=== PATIENT | female | born 1955 | race African-American/Black ===

== ENCOUNTER 2019-12-03 10:20 | Inpatient (IN) | payer OTHER ==
--- NOTE | 2019-12-03 10:31 | PDOC ---
History of Present Illness - General Chief Complaint: Altered Mental Status Stated Complaint: Altered Mental Status Time Seen by Provider: 12/03/19 10:31 History Source: Patient Exam Limitations: Clinical Condition - History of Present Illness Initial Comments: 12/03/19 10:55 64F w/PMH of DM, HTN, and living at undomicilied facility p/w AMS, brought in by EMS. Pt is a poor historian, does not know why she's here. She was admitted several days ago hypoglycemia. Denies cp, sob, n/v, abd pain. PMH: as in HPI SH: see below Meds: Allergies: NKDA Tob/Etoh/Rec drugs: PCP: Ayan Marrero GENERAL/CONSTITUTIONAL: No fever or chills. No weakness. HEENT: No change in vision. No ear pain or discharge. No sore throat. CARDIOVASCULAR: No chest pain or shortness of breath RESPIRATORY: No cough, wheezing, or hemoptysis. GASTROINTESTINAL: No nausea, vomiting, diarrhea or constipation. GENITOURINARY: No dysuria, frequency, or change in urination. MUSCULOSKELETAL: No joint or muscle swelling or pain. No neck or back pain. SKIN: No rash NEUROLOGIC: No headache, vertigo, loss of consciousness, or change in strength/sensation. ENDOCRINE: No increased thirst. No abnormal weight change HEMATOLOGIC/LYMPHATIC: No anemia, easy bleeding, or history of blood clots. ALLERGIC/IMMUNOLOGIC: No hives or skin allergy. PE GENERAL: Awake, alert, not fully oriented; fatigued, pt not cooperative with exam, disheveled, poor hygiene HEAD: No signs of trauma, normocephalic, atraumatic EYES: PERRLA, EOMI, sclera anicteric, conjunctiva clear ENT: Auricles normal inspection, hearing grossly normal, nares patent, moist mucosa, oropharynx clear without exudates. NECK: Normal ROM, supple, no LAD, JVD, or masses HEART: Regular rate and rhythm, normal S1/S2, no murmurs, rubs or gallops, peripheral pulses normal and equal bilaterally. LUNGS: mild diffuse wheezes bilaterally, no rales, rhonchi ABDOMEN: Soft, non-tender. No guarding, no rebound. No masses EXTREMITIES: Normal inspection, Normal range of motion, no edema. No clubbing or cyanosis. NEUROLOGICAL: SKIN: Warm, Dry, normal turgor, no rashes or lesions noted Assessment and Plan 1. AMS 2. r/o intracranial pathology 3. metabolic derangement 4. electrolyte abnormality Boubacar Tobias, PGY1 Emergency Medicine Past History - Medical History Allergies/Adverse Reactions: Allergies Allergy/AdvReac Type Severity Reaction Status Date / Time No Known Allergies Allergy Verified 12/03/19 10:39 Home Medications: Ambulatory Orders Acetaminophen [Pain Reliever] 500 mg PO BID 11/24/19 Amlodipine Besylate 5 mg PO DAILY 11/24/19 Atorvastatin Ca [Lipitor] 40 mg PO HS 11/24/19 Cyanocobalamin (Vitamin B-12) [Vitamin B-12] 100 mcg PO DAILY 11/24/19 Ferrous Sulfate 325 mg PO DAILY 11/24/19 Insulin Lispro [Admelog Solostar] 100 unit SQ ASDIR 11/24/19 Lisinopril 20 mg PO DAILY 11/25/19 Prednisolone 1% Ophthalmic [Pred Forte 1% -] 1 drop OU QID 11/25/19 Aspirin [ASA -] 81 mg PO DAILY #30 tab.chew 11/26/19 Aspirin 81 mg PO DAILY 12/03/19 Glipizide 10 mg PO BID 12/03/19 Insulin Glargine,Hum.rec.anlog [Basaglar Kwikpen U-100] 20 unit SQ DAILY 12/03/19 Lisinopril 20 mg PO DAILY 12/03/19 Tiotropium [place] [Spiriva] 2 puff IH DAILY 12/03/19 Umeclidinium [place] [Incruse Ellipta] 62.5 mcg IH DAILY 12/03/19 Anemia: Yes (iron deficiency) Asthma: Yes 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 Patient not cooperative with exam. Fingerstick BG 251, AMS not 2/2 hypoglycemia. Will do full workup: CBC, CMP, TSH, lactate, UA+Clx, CXR, head CT 12/03/19 12:08 Spoke with NAHUM Gaffney at [facility] Reported that EMS was called bc pt was minimally responsive, w/ slurred speech. Baseline AOx3. Yesterday was last known normal. 12/03/19 12:[address]: no acute intracranial pathology, w/ chronic infarcts and ischemic changes. Reassessed mental status, shes AOx1. Pt still too fatigued to cooperate with neuro exam. 12/03/19 13:07 Labs notable for creatinine 2.1 (increased from 1.3 on 11/23) and BUN 28.7 (increased from 15.1 on 11/23), suggesting HAM. Mild hyperkalemia @ 5.6, w/o EKG changes. -> Pt given 1L NS for hydration. Unable to provide urine for UA and refused straight cath. 12/03/19 14:21 Pt admitted to m/s for HAM and hyperkalemia. Discharge - Discharge Information Problems reviewed: Yes Clinical Impression/Diagnosis: Transient alteration of awareness, HAM (acute kidney injury), Hyperkalemia Condition: Fair - Admission Yes - Follow up/Referral - Patient Discharge Instructions - Post Discharge Activity
[2019-12-03 12:25] LABS: BASO % 0.5 % (0-2.0); HEMOGLOBIN 9.1 GM/dL (10.7-15.3); LYMPH % 7.5 % (8-40); MCH 29.4 pg (25.7-33.7); MCHC 32.7 g/dl (32.0-36.0); MEAN PLT VOLUME 8.1 fl (7.5-11.1); MONO % 4.7 % (3.8-10.2); NEUT % 87.3 % (42.8-82.8); PLATELET COUNT 521 K/MM3 (134-434); RBC 3.11 M/mm3 (3.60-5.2); RDW 14.7 % (11.6-15.6); WHITE BLOOD COUNT 12.2 K/mm3 (4.0-10.0)
--- NOTE | 2019-12-03 12:26 | PDOC ---
Attending Attestation - Resident Resident Name: Boubacar Tobias - ED Attending Attestation I have performed the following: I have examined & evaluated the patient, The case was reviewed & discussed with the resident, I agree w/resident's findings & plan - HPI HPI: 12/03/19 12:22 64y/o F HTN, DM, HepC, asthma sent from [facility] for AMS, normally A+Ox3 but today had aggressive behavior and perceived confusion so she was sent to ED. pt has no complaints, does not recall events prompting referral, denies any headache/sore throat/cp/sob/abd pain/f/c/dysuria. - Physicial Exam PE: 12/03/19 12:23 afebrile, vss alert, nad conversant perrl, eomi s1s2 rrr, ctab, abd benign no edema, neuro nonfocal angry but cooperative with exam and following commands - Medical Decision Making 12/03/19 12:24 64[facility], no complaints and no specific findings on exam. ddx broad including infectious/metabolic. has had similar presentations in the past in setting of hypoglycemia, but normoglycemic here. labs, ua ekg, cxr, ct head reassess 12/03/19 13:37 Compared to prior labs, baseline anemia and elevated alk phos, new HAM with hyperkalemia but without EKG changes. Hyperkalemia treated, chest x-ray and CT head without acute pathology UA pending IV fluids, admission Heart Score/ECG Review #1 ECG reviewed & interpreted by me at: 10:52 General ECG Interpretation: Sinus Rhythm, Normal Rate (79), Normal Intervals (qtc [id number]), No acute ischemic changes Discharge - Discharge Information Problems reviewed: Yes Clinical Impression/Diagnosis: Transient alteration of awareness, HAM (acute kidney injury), Hyperkalemia Condition: Fair - Follow up/Referral Referrals: Ayan Marrero [Primary Care Provider] - - Patient Discharge Instructions - Post Discharge Activity
[2019-12-03] MEDS ORDERED: SODIUM CHLORIDE 0.9% 500 ML INFUS.BAG IV ONE (12:32)
[2019-12-03 12:54] LABS: ALBUMIN 2.7 g/dl (3.4-5.0); BILIRUBIN,TOTAL 0.2 mg/dL (0.2-1); BLOOD UREA NITROGEN 28.7 mg/dL (7-18); CALCIUM 7.9 mg/dL (8.5-10.1); CREATININE 2.1 mg/dL (0.55-1.3); POTASSIUM 5.6 mmol/L (3.5-5.1); TOT PROT 8.9 g/dl (6.4-8.2)
[2019-12-03] MEDS ORDERED: SODIUM CHLORIDE 1,000 ML IV SCH (15:30)
--- NOTE | 2019-12-03 15:38 | HP ---
CHIEF COMPLAINT: Altered mental status PCP: Dr. Marrero HISTORY OF PRESENT ILLNESS: Pt is a 64 year old F with PMHx of HTN, DM, HepC, asthma presenting to the ED from [facility] with altered mental status. Pt is A&O x 3 at baseline, and was recently discharged from [facility] for hypoglycemia resolved for taking insulin meds without eating, regimen was changed to metformin 750mg BID daily. Pt has improved mentation on interviewing compared to ED resident note earlier, but is still unable to state the year, is A&Ox2. Pt states she does not recall her events from this morning and having altered mentation. ER course was notable for: (1) K+ 5.6; no EKG changes (2) WBC 12.2 (3) Cr 2.1, baseline 1.3 on last admission - 1L NS Recent Travel: Denies PAST MEDICAL HISTORY: As stated above PAST SURGICAL HISTORY: Denies Social History: Smoking: denies Alcohol: denies Drugs: denies Allergies No Known Allergies Allergy (Verified 12/03/19 10:39) HOME MEDICATIONS: Home Medications Medication Instructions Recorded Acetaminophen [Pain Reliever] 500 mg PO BID 11/24/19 Amlodipine Besylate 5 mg PO DAILY 11/24/19 Atorvastatin Ca [Lipitor] 40 mg PO HS 11/24/19 Cyanocobalamin (Vitamin B-12) 100 mcg PO DAILY 11/24/19 [Vitamin B-12] Ferrous Sulfate 325 mg PO DAILY 11/24/19 Insulin Lispro [Admelog Solostar] 100 unit SQ ASDIR 11/24/19 Lisinopril 20 mg PO DAILY 11/25/19 Prednisolone 1% Ophthalmic [Pred 1 drop OU QID 11/25/19 Forte 1% -] Aspirin [ASA -] 81 mg PO DAILY #30 tab.chew 11/26/19 Aspirin 81 mg PO DAILY 12/03/19 Glipizide 10 mg PO BID 12/03/19 Insulin Glargine,Hum.rec.anlog 20 unit SQ DAILY 12/03/19 [Basaglar Kwikpen U-100] Lisinopril 20 mg PO DAILY 12/03/19 Tiotropium [place] [Spiriva] 2 puff IH DAILY 12/03/19 Umeclidinium [place] [Incruse 62.5 mcg IH DAILY 12/03/19 Ellipta] REVIEW OF SYSTEMS CONSTITUTIONAL: Absent: fever, chills, diaphoresis, generalized weakness, malaise, loss of appetite, weight change HEENT: Absent: rhinorrhea, nasal congestion, throat pain, throat swelling, difficulty swallowing, mouth swelling, ear pain, eye pain, visual changes CARDIOVASCULAR: Absent: chest pain, syncope, palpitations, irregular heart rate, lightheadedness, peripheral edema RESPIRATORY: Absent: cough, shortness of breath, dyspnea with exertion, orthopnea, wheezing, stridor, hemoptysis GASTROINTESTINAL: Absent: abdominal pain, abdominal distension, nausea, vomiting, diarrhea, constipation, melena, hematochezia GENITOURINARY: Absent: dysuria, frequency, urgency, hesitancy, hematuria, flank pain, genital pain MUSCULOSKELETAL: Absent: myalgia, arthralgia, joint swelling, back pain, neck pain SKIN: Absent: rash, itching, pallor HEMATOLOGIC/IMMUNOLOGIC: Absent: easy bleeding, easy bruising, lymphadenopathy, frequent infections ENDOCRINE: Absent: unexplained weight gain, unexplained weight loss, heat intolerance, cold intolerance NEUROLOGIC: mental status changes on admission, improved Absent: headache, focal weakness or paresthesias, dizziness, unsteady gait, seizure, bladder or bowel incontinence PSYCHIATRIC: Absent: anxiety, depression, suicidal or homicidal ideation, hallucinations. PHYSICAL EXAMINATION Vital Signs - 24 hr 12/03/19 10:20 Temperature 97.8 F Pulse Rate 83 Respiratory 18 Rate Blood Pressure 100/58 L O2 Sat by Pulse 99 Oximetry (%) GENERAL: A&O x 2, in no acute distress. HEAD: Normal with no signs of trauma. EYES: Pupils equal, round and reactive to light, extraocular movements intact, sclera anicteric, conjunctiva clear. No lid lag. EARS, NOSE, THROAT: Ears normal, nares patent, oropharynx clear without exudates. Moist mucous membranes. NECK: Normal range of motion, supple without lymphadenopathy, JVD, or masses. LUNGS: Breath sounds equal, clear to auscultation bilaterally. No wheezes, and no crackles. No accessory muscle use. HEART: Regular rate and rhythm, normal S1 and S2 without murmur, rub or gallop. ABDOMEN: Soft, nontender, not distended, normoactive bowel sounds, no guarding, no rebound, no masses. No hepatomegaly or splenomegaly. MUSCULOSKELETAL: Normal range of motion at all joints. No bony deformities or tenderness. No CVA tenderness. UPPER EXTREMITIES: 2+ pulses, warm, well-perfused. No cyanosis. No clubbing. No peripheral edema. LOWER EXTREMITIES: 2+ pulses, warm, well-perfused. No calf tenderness. No peripheral edema. NEUROLOGICAL: Cranial nerves II-XII intact. Normal speech. Normal gait. PSYCHIATRIC: Cooperative. Good eye contact. Appropriate mood and affect. SKIN: Warm, dry, normal turgor, no rashes or lesions noted, normal capillary refill. Laboratory Results - last 24 hr 12/03/19 12/03/19 12/03/19 12:04 12:04 12:04 WBC 12.2 H RBC 3.11 L Hgb 9.1 L Hct 28.0 L MCV 90.0 MCH 29.4 MCHC 32.7 RDW 14.7 Plt Count 521 H MPV 8.1 Absolute Neuts (auto) 10.6 H Neutrophils % 87.3 H Lymphocytes % 7.5 L Monocytes % 4.7 Eosinophils % 0.0 Basophils % 0.5 Nucleated RBC % 0 Sodium 133 L Potassium 5.6 H Chloride 105 Carbon Dioxide 21 Anion Gap 8 BUN 28.7 H Creatinine 2.1 H Est GFR (CKD-EPI)AfAm 27.92 Est GFR (CKD-EPI)NonAf 24.09 Random Glucose 223 H Lactic Acid Calcium 7.9 L Total Bilirubin 0.2 AST 27 ALT 11 L Alkaline Phosphatase 290 H Total Protein 8.9 H Albumin 2.7 L TSH 8.01 H 12/03/19 12:04 WBC RBC Hgb Hct MCV MCH MCHC RDW Plt Count MPV Absolute Neuts (auto) Neutrophils % Lymphocytes % Monocytes % Eosinophils % Basophils % Nucleated RBC % Sodium Potassium Chloride Carbon Dioxide Anion Gap BUN Creatinine Est GFR (CKD-EPI)AfAm Est GFR (CKD-EPI)NonAf Random Glucose Lactic Acid 2.0 Calcium Total Bilirubin AST ALT Alkaline Phosphatase Total Protein Albumin TSH ASSESSMENT/PLAN: Pt is a 64 year old female with a PMHx of DM, HTN, Hep C and asthma presenting with AMS admitted for hyperkalemia 5.7. #Acute mental status -AOx3 at baseline; presented with -Ordered UA, UCx for possible UTI; denies suprapubic/flank pain but being ruled out -TSH 8.01; ordered FT3/4 #HAM -Cr 2.1; baseline last admission 1.3 -held lasix -NS 75cc/hr; given NS 1L in ED -consulted renal #Hyperkalemia -5.7; repeat at 6pm; if >6 insulin D50/calcium gluc/albuterol -no EKG changes/no T wave elevation #Increased TSH -TSH 8.01 -ordered FT4/FT3 -no cold intolerance, constipation -ordered AM cortisol, renin, aldosterone #Hx anemia -Hgb 9.1, present last admission too; normocytic -Ordered iron panel, B12, folate #Hx HTN -continue home norvasc 5mg daily -held home Lisinopril due to HAM #Hx DM -held home meds -SSI and BGM -On last admission was hypoglycemic, d/c'd all insulins and started on only metformin 750 BID #Hx asthma -home Ellipta resumed PPx: Heparin 5000u TID FEN NS 75cc/hr Repeat BMP at 6pm Diabetic/sodium diet Dispo: Admitted to med surg. Monitor electrolytes, K+. Repeat BMP. ATTENDING PHYSICIAN STATEMENT I saw and evaluated the patient. I reviewed the resident's note and discussed the case with the resident. I agree with the resident's findings and plan as documented. SUBJECTIVE: OBJECTIVE: ASSESSMENT AND PLAN:
--- NOTE | 2019-12-03 16:20 | PN ---
Teaching Attending Note Name of Resident: Ellen Castelan ATTENDING PHYSICIAN STATEMENT I saw and evaluated the patient. I reviewed the resident's note and discussed the case with the resident. I agree with the resident's findings and plan as documented. SUBJECTIVE: Patient seen and examined at bedside, admitted for UTI/HAM, looks dishveled, unkempt, patient in her own feces, will need SNF. VSS. OBJECTIVE: GA mild distress, tired appearing, malnourished, feces on clothes HEENT nC/AT, cachectic, dry MM Chest CTAB CVS s1, S2+, RRR Abd thin, Soft, NT< ND, BS+ Ext no LE edema no CVA tenderness Vital Signs (72 hours) 12/03/19 12/03/19 12/03/19 10:20 14:30 18:00 Temperature 97.8 F 98.3 F Pulse Rate 83 Pulse Rate [ 74 78 Apical] Respiratory 18 16 18 Rate Blood Pressure 100/58 L Blood Pressure 114/75 104/68 [Left Arm] O2 Sat by Pulse 99 99 99 Oximetry (%) Laboratory Results - last 24 hr 12/03/19 12/03/19 12/03/19 12:04 12:04 12:04 WBC 12.2 H RBC 3.11 L Hgb 9.1 L Hct 28.0 L MCV 90.0 MCH 29.4 MCHC 32.7 RDW 14.7 Plt Count 521 H MPV 8.1 Absolute Neuts (auto) 10.6 H Neutrophils % 87.3 H Lymphocytes % 7.5 L Monocytes % 4.7 Eosinophils % 0.0 Basophils % 0.5 Nucleated RBC % 0 Sodium 133 L Potassium 5.6 H Chloride 105 Carbon Dioxide 21 Anion Gap 8 BUN 28.7 H Creatinine 2.1 H Est GFR (CKD-EPI)AfAm 27.92 Est GFR (CKD-EPI)NonAf 24.09 POC Glucometer Random Glucose 223 H Lactic Acid Calcium 7.9 L Total Bilirubin 0.2 AST 27 ALT 11 L Alkaline Phosphatase 290 H Total Protein 8.9 H Albumin 2.7 L TSH 8.01 H 12/03/19 12/03/19 12:04 18:24 WBC RBC Hgb Hct MCV MCH MCHC RDW Plt Count MPV Absolute Neuts (auto) Neutrophils % Lymphocytes % Monocytes % Eosinophils % Basophils % Nucleated RBC % Sodium Potassium Chloride Carbon Dioxide Anion Gap BUN Creatinine Est GFR (CKD-EPI)AfAm Est GFR (CKD-EPI)NonAf POC Glucometer 93 Random Glucose Lactic Acid 2.0 Calcium Total Bilirubin AST ALT Alkaline Phosphatase Total Protein Albumin TSH Home Medications Medication Instructions Recorded Acetaminophen [Pain Reliever] 500 mg PO BID 11/24/19 Amlodipine Besylate 5 mg PO DAILY 11/24/19 Atorvastatin Ca [Lipitor] 40 mg PO HS 11/24/19 Cyanocobalamin (Vitamin B-12) 100 mcg PO DAILY 11/24/19 [Vitamin B-12] Ferrous Sulfate 325 mg PO DAILY 11/24/19 Insulin Lispro [Admelog Solostar] 100 unit SQ ASDIR 11/24/19 Lisinopril 20 mg PO DAILY 11/25/19 Prednisolone 1% Ophthalmic [Pred 1 drop OU QID 11/25/19 Forte 1% -] Aspirin [ASA -] 81 mg PO DAILY #30 tab.chew 11/26/19 Aspirin 81 mg PO DAILY 12/03/19 Glipizide 10 mg PO BID 12/03/19 Insulin Glargine,Hum.rec.anlog 20 unit SQ DAILY 12/03/19 [Basaglar Kwikpen U-100] Lisinopril 20 mg PO DAILY 12/03/19 Tiotropium [place] [Spiriva] 2 puff IH DAILY 12/03/19 Umeclidinium [place] [Incruse 62.5 mcg IH DAILY 12/03/19 Ellipta] Current Medications Generic Name Dose Route Start Last Admin Trade Name Freq PRN Reason Stop Dose Admin Amlodipine Besylate 5 mg 12/03/19 17:00 12/03/19 18:51 Norvasc - PO Not Given DAILY [facility] Aspirin 81 mg 12/04/19 10:00 Asa - PO DAILY [facility] Atorvastatin Calcium 40 mg 12/03/19 22:00 Lipitor - PO HS [facility] Cyanocobalamin 100 mcg 12/04/19 10:00 Vitamin B12 - PO DAILY [facility] Ferrous Sulfate 325 mg 12/04/19 10:00 Feosol - PO DAILY [facility] Heparin Sodium (Porcine) 5,000 unit 12/03/19 22:00 Heparin - SQ TID [facility] Sodium Chloride 1,000 mls @ 100 mls/hr 12/03/19 18:29 12/03/19 18:51 Normal Saline - IV 100 mls/hr ASDIR [facility] Administration Insulin Aspart 1 vial 12/03/19 16:30 12/03/19 18:49 Novolog Vial Sliding Scale - SQ Not Given TIDAC [facility] Protocol Prednisolone Acetate 1 drop 12/03/19 18:00 12/03/19 18:49 Pred Forte 1% - OU Not Given QID [facility] Tiotropium [place] 2 puff 12/04/19 10:00 Spiriva Respimat IH DAILY [facility] ASSESSMENT AND PLAN: 64 F HAM HTN HLD Hep C Prior PSA T2DM Borderline lactic acid ?Metformin use Plan: Aggressive IV hydration DC Metformin trend chem Obtain UA straight cath as needed will need SW evaluation needs SNF placement DVT ppx: Heparin SC
--- OUTSIDE RECORDS SUMMARY | 2019-12-03 17:43 | XMS ---
:1955 [facility] Providers Name Role Phone [facility] Unavailable Unavailable Arsenio Rangel Unavailable Unavailable ED STAFF LAURO AGUILAR Unavailable Unavailable MYA THACKER Unavailable Unavailable Manolo Khander Unavailable Josue Khanpinder Unavailable Bill Pushpinder Unavailable Khan Pushpinder Unavailable Khan Pushpinder Unavailable Bill Pushpinder Unavailable Bill Pushpinder Unavailable Bill Pushpinder Unavailable ED STAFF PHYSICIAN, STAFF Unavailable Unavailable ED STAFF EMEKA AGUILAR Unavailable Unavailable Kar Pa MD Unavailable Unavailable Tete Pa MD Unavailable Unavailable Tete Pa MD Unavailable Unavailable Tete Pa MD Unavailable Unavailable Tete Pa MD Unavailable Unavailable Tete Pa MD Unavailable Unavailable Tete Pa MD Unavailable Unavailable Tushar Unavailable Unavailable MD Laron Unavailable Unavailable MD Laron Unavailable Unavailable MD Laron Unavailable Unavailable MD Laron Unavailable Unavailable MD Laron Unavailable Unavailable MD Laron Unavailable Unavailable MD Laron Unavailable Unavailable MD Bill Unavailable Unavailable Nicola Unavailable Unavailable Donnell Unavailable Unavailable ED STAFF PHYSICIAN Unavailable Unavailable Iamele Unavailable Unavailable Iamele Unavailable Unavailable Iamele Unavailable Unavailable ED STAFF PHYSICIAN Unavailable Unavailable Re-disclosure Warning The records that you are about to access may contain information from federally- assisted alcohol or drug abuse programs. If such information is present, then the following federally mandated warning applies: This information has been disclosed to you from records protected by federal confidentiality rules (42 CFR part 2). The federal rules prohibit you from making any further disclosure of this information unless further disclosure is expressly permitted by the written consent of the person to whom it pertains or as otherwise permitted by 42 CFR part 2. A general authorization for the release of medical or other information is NOT sufficient for this purpose. The Federal rules restrict any use of the information to criminally investigate or prosecute any alcohol or drug abuse patient.The records that you are about to access may contain highly sensitive health information, the redisclosure of which is protected by Article 27-F of the [facility] Public Health law. If you continue you may haveaccess to information: Regarding HIV / AIDS; Provided by facilities licensed or operated by the [facility] Office of Mental Health; or Provided by the [facility] Office for People With Developmental Disabilities. If such information is present, then the following [facility] mandated warning applies: This information has been disclosed to you from confidential records which are protected by state law. State law prohibits you from making any further disclosure of this information without the specific written consent of the person to whom it pertains, or as otherwise permitted by law. Any unauthorized further disclosure in violation of state law may result in a fine or nursing home sentence or both. A general authorization for the release of medical or other information is NOT sufficient authorization for further disclosure. Allergies and Adverse Reactions Type Description Substance Reaction Status Data Source(s ) 9 N/A N/A [facility]) Encounters Encounter Providers Location Date Indications Data Source(s ) Emergency Attender: Kar Bustos 11/18/2019 [facility] Shemar Swift 05:24:00 AM EDT Medical C enter MDAttender: STAFF ED - 11/18/2019 STAFF 11:25:00 AM EDT PHYSICIANAdmitter: Kar Swift MD Patient discharged. Emergency Attender: LAURO ED STAFF H 10/03/2019 09:15:00 AM [facility] PHYSICIANAttender: EMEKA ED EDT - 10/03/2019 [facility] STAFF PHYSICIANAttender: STAFF 07:16:00 PM EDT ED STAFF PHYSICIANAdmitter: LAURO ED STAFF PHYSICIAN Patient discharged. Emergency Attender: ED STAFF H 09/18/2019 12:21:00 PM [facility] PHYSICIANAttender: STAFF ED EDT - 09/18/2019 [facility] STAFF PHYSICIANAdmitter: ED 06:21:00 PM EDT STAFF PHYSICIAN Patient discharged. Outpatient Attender: HVC9 HHHVCC 04/30/2019 01:36:07 PM [facility] Patient admitted. Emergency Attender: EMEKA ED STAFF H 03/28/2019 04:50:00 PM [facility] PHYSICIANAttender: STAFF ED EST - 03/28/2019 [facility] STAFF PHYSICIANAdmitter: EMEKA 08:39:00 PM EST ED STAFF PHYSICIAN Patient discharged. Emergency Attender: ED STAFF H 03/02/2019 06:09:00 PM [facility] PHYSICIANAttender: STAFF ED EST - 03/02/2019 [facility] STAFF PHYSICIANAdmitter: ED 11:44:00 PM EST STAFF PHYSICIANReferrer: STAFF ED STAFF PHYSICIAN Patient discharged. Emergency Attender: EMEKA ED STAFF H 10/11/2018 [facility] PHYSICIANAdmitter: EMEKA 04:11:00 PM EDT [facility] ED STAFF PHYSICIAN Inpatient Attender: Gregorio Khan 6 WEST-3 08/24/2018 [facility] 11:30:00 AM EDT - ([facility] y Extended 10/11/2018 [facility]) 11:22:00 AM EDT Patient discharged. Inpatient Attender: 5T-5T 08/20/2018 UNCONTROLLED [facility] - M daryn Larry MDAttender: 10:16:00 AM EDT DIABETES M ILLITUS [place] - 08/24/2018 WITH HYPERGLYCEMIA Hosp ital LathanAdmitter: 12:02:00 PM EDT Laron MDConsultant: Cheyenne Gardner UNCONTROLLED DIABETES MILLITUS WITH HYPE RGLYCEMIA Patient discharged. Outpatient 05/31/2018 [facility] 11:28:00 AM EDT [facility]) Inpatient Attender: Arsenio 5T-5T 04/28/2018 Episode of [facility] - Nica nt Ki DesireelucianoamsAttender: 10:26:00 PM EST - syncope [facility] 05/09/2018 SinghAttender: 07:12:00 PM EST [place] DysonAttender: Mike Finley Episode of syncope Inpatient Attender: ROQUE FER H-HAL6 04/05/2017 06:37:00 [facility] [place] NUSRATERAdmitter: MYA EST - [facility] 11:20[facility]00 AM EST MYA ROQUE Immunizations Vaccine Date Status Description Data Source(s) Tdap 09/18/2016 completed Tdap on: 18-Sep-2016 [facility] 12:00:00 AM Lot #: [id number] [facility] EDT This CVX 07/04/2012 completed unknown [inactive] on: Site: Entire right upper arm (body structure) [facility] code has 12:00:00 AM Lot #: [id number] 04-Jul-2012 Comme nts: Comments: Unknown CVX vaccine name: [facility] little EDT utility and should rarely be used. Comments: Unknown CVX vaccine name: Twin stephanie This CVX code 12/20/2011 completed influenza, unspe cified formulation [inactive] on: Site: Entire left upper arm (body struc ture) [facility] allows 12:00:00 AM Lot #: [id number] 20-Dec-2011 Health reporting of a EDT Syste m vaccination when formulation is unknown (for example, when recording a Influenza vaccination when noted on a vaccination card) Medications Medication Brand Start Product Dose Route Administrative Pharmacy at Indications Reaction Description Data Name Date Form Instructions Instructions Source(s) Admelog 3 ML Admelog SIGM [facility] SoloStar Insuli 2019 ed SoloStar (Rege ncy U-100 n 01:18: U-100 Extended Insulin Lispro 28 AM Insulin Care (insulin 100 EDT lispro 100 Cente r) lispro) UNT/ML unit/mL lispro 100 Pen subcutaneous unit/mL Inject pen subcutaneou or s pen [Admel og] Basaglar 3 ML 09/19/ complet Basaglar SI [facility] KwikPen Insuli 2018 ed KwikPen (Regenc y U-100 n 08:30: U-100 Extended Insulin Glargi 55 AM Insulin 100 Ca re (insulin ne 100 EDT unit/mL ([address]) glargine) UNT/ML mL) 100 unit/mL Pen subcutaneous (3 mL) Inject subcutaneou or s [Basag lar] glipizide Glipiz 09/06/ complet glipizid e 10 [facility] 10 mg bernice 2018 ed mg tablet (Regen y tablet MG 06:47: Extended Oral 35 AM Care Tablet EDT Center) glipizide Glipiz 09/06/ complet glipizid e 10 [facility] 10 mg bernice 2018 ed mg tablet (Regen y tablet MG 06:47: Extended Oral 35 AM Care Tablet EDT Center) Januvia sitagl 09/05/ complet Januvia 10 0 [facility] (sitaglipti iptin 2018 ed mg tablet (R egency n) 100 mg 100 MG 10:00: Extend ed tablet Oral 00 PM Care Tablet EDT Center) [Januv ia] metformin Metfor 09/05/ complet metformi n [facility] 500 mg min 2019 ed 500 mg ([facility] tablet hydroc 07:28: tablet Extende d hlorid 23 AM Care e 500 EDT Center) MG Oral Tablet Basaglar 3 ML 09/04/ complet Basaglar SI [facility] KwikPen Insuli 2018 ed KwikPen ([facility] y U-100 n 01:26: U-100 Extended Insulin Glargi 04 PM Insulin 100 Ca re (insulin ne 100 EDT unit/mL ([address] glargine) UNT/ML mL) 100 unit/mL Pen subcutaneous (3 mL) Inject subcutaneou or s [Basag lar] Levemir insuli 09/04/ complet Levemir SI [facility] U-100 n 2018 ed U-100 ([facility] Insulin detemi 09:30: Insulin 100 E xtended (insulin r 100 18 AM unit/mL Care detemir UNT/ML EDT subcutaneous Ce nter) u-100) 100 Inject solution unit/mL able subcutaneou Soluti s solution on [Levem ir] Vitamin Vitami 08/24/ complet Vitamin B- 12 [facility] B-12 n B 12 2018 ed 100 mcg ([facility] (cyanocobal 0.1 MG 06:48: tablet Ex tended hoang Oral 02 AM Care (vitamin Tablet EDT Center) b-12)) 100 mcg tablet Vitamin Vitami 08/24/ complet Vitamin B- 12 [facility] B-12 n B 12 2018 ed 100 mcg ([facility] (cyanocobal 0.1 MG 06:48: tablet Ex tended hoang Oral 02 AM Care (vitamin Tablet EDT Center) b-12)) 100 mcg tablet Tubersol Purifi 08/24/ complet Tubersol 5 [facility] (tuberculin ed 2019 ed tub. ([facility] ppd) 5 tub. Protei 05:06: unit/0.1 mL Extended unit/0.1 mL n 43 AM intradermal Care intradermal Deriva EDT injection C enter) injection tive solution solution of Tuberc ulin 50 UNT/ML Inject able Soluti on [Tuber thanh] Pneumovax PNEUMO 08/24/ complet Pneumova x 23 [facility] 23 VAX 23 2018 ed 25 mcg/0.5 (Regenc y (pneumococc 0.5 ML 05:06: mL inject ion Extended al 23-maia Inject 43 AM solution Car e ps vaccine) ion EDT Center) 25 mcg/0.5 mL injection solution pantoprazol pantop 08/24/ complet pantop razole [facility] e 40 mg razole 2018 ed 40 mg ([facility] tablet,rocío 40 MG 04:55: tablet,del ay Extended yed release Delaye 11 AM ed release Care d EDT Center) Releas e Oral Tablet amlodipine Amlodi 08/24/ complet amlodip ine 5 [facility] 5 mg tablet pine 5 2018 ed mg tablet ( [facility] MG 04:55: Extended Oral 11 AM Care Tablet EDT Center) pantoprazol pantop 08/24/ complet pantop razole [facility] e 40 mg razole 2018 ed 40 mg ([facility] tablet,orcío 40 MG 04:55: tablet,del ay Extended yed release Delaye 11 AM ed release Care d EDT Center) Releas e Oral Tablet amlodipine Amlodi 08/24/ complet amlodip ine 5 [facility] 5 mg tablet pine 5 2019 ed mg tablet ( [facility] MG 04:55: Extended Oral 11 AM Care Tablet EDT Center) Humalog 3 ML 08/24/ complet Humalog [facility] KwikPen Insuli 2019 ed KwikPen (Regenc y (U-100) n 04:50: (U-100) Extende d (insulin Lispro 28 AM Insulin 100 C are lispro) 100 EDT unit/mL Center) Insulin 100 UNT/ML subcutaneou s unit/mL Pen subcutaneou Inject s or [Humal og] acetaminoph Acetam 08/24/ complet acetam inophe [facility] en 325 mg inophe 2019 ed n 325 mg (Reg ency tablet n 325 04:37: tablet Extended MG 23 AM Care Oral EDT Center) Tablet acetaminoph Acetam 08/24/ complet acetam inophe [facility] en 325 mg inophe 2019 ed n 325 mg (Reg ency tablet n 325 04:37: tablet Extended MG 23 AM Care Oral EDT Center) Tablet ferrous ferrou 08/24/ complet ferrous SI [facility] sulfate 325 s 2019 ed sulfate 325 ( [facility] mg (65 mg sulfat 04:32: mg (65 mg E xtended iron) e 325 58 AM iron) tablet Care tablet MG EDT Center) Oral Tablet ferrous ferrou 08/24/ complet ferrous SI [facility] sulfate 325 s 2019 ed sulfate 325 ( [facility] mg (65 mg sulfat 04:32: mg (65 mg E xtended iron) e 325 58 AM iron) tablet Care tablet MG EDT Center) Oral Tablet atorvastati atorva 08/24/ complet atorva statin [facility] n 40 mg statin 2019 ed 40 mg tablet (R egency tablet 40 MG 04:27: Extended Oral 43 AM Care Tablet EDT Center) atorvastati atorva 08/24/ complet atorva statin [facility] n 40 mg statin 2019 ed 40 mg tablet (R egency tablet 40 MG 04:27: Extended Oral 43 AM Care Tablet EDT Center) lisinopril Lisino 08/24/ complet lisinop ril [facility] 20 mg pril 2019 ed 20 mg tablet (Regen cy tablet 20 MG 04:19: Extended Oral 31 AM Care Tablet EDT Center) lisinopril Lisino 08/24/ complet lisinop ril [facility] 20 mg pril 2019 ed 20 mg tablet (Regen cy tablet 20 MG 04:19: Extended Oral 31 AM Care Tablet EDT Center) Amlodipine amLODI ORAL complet [facility] 5 MG Oral [place] 5 2018 {tab( ed Health Tablet mg 01:37: s)} System amLODIPine oral 16 PM 5 mg oral tablet EST tablet tramadol traMAD ORAL complet [facility] hydrochlori ol 50 2018 {tab( ed Health de 50 MG mg 01:34: s)} System Oral Tablet oral 26 PM traMADol 50 tablet EST mg oral tablet Naproxen Anapro 04/28/ TABLET 1 ORAL complet [facility] sodium 550 x-DS 2019 {tab( ed Health MG Oral 550 mg 11:40: s)} System Tablet oral 42 PM [Anaprox] tablet EST Anaprox-DS 550 mg oral tablet Check with your doctor before becoming p regnant.It is very important that you take or use this exactly as directed. Do not sk ip doses or discontinue unless directed by your doctor.May cause drowsiness or dizz iness.Obtain medical advice before taking any non-prescription drugs as some may affec t the action of this medication.Take with food or milk. Prednisone predniSONE 04/28/2018 TABLET 1 {tab(s)} ORAL completed [facility] 50 MG Oral 50 mg oral 11:39:57 PM Health Tablet tablet EST System predniSONE 50 mg oral tablet It is very important that you take or us e this exactly as directed. Do not skip doses or discontinue unless directed by your doctor.Obtain medical advice before taking any non-prescription drugs as forest e may affect the action of this medication.Take with food or milk. Insulin Lispro HumaLOG 100 06/24/2017 SOLUTION 0 complete d [facility] 100 UNT/ML units/mL 05:09:57 PM Health Injectable injectable EDT Sys tem Solution solution [Humalog] HumaLOG 100 units/mL injectable solution 3 ML Insulin HumaLOG KwikPen 06/24/2017 SOLUTION 4 comple [facility]ford [facility] Lispro 100 100 units/mL 05:05:47 PM {un Health UNT/ML Pen injectable EDT its Sys tem Injector solution } [Humalog] HumaLOG KwikPen 100 units/mL injectable solution Insulin insulin 06/24/2017 15 SUBCUT completed [facility] Glargine glargine 05:05:32 PM { ANEOUS Health insulin EDT its System glargine } Vitamin B 12 cyanocobalamin 06/24/2017 TABLET 1 ORAL completed [facility] 0.1 MG Oral 100 mcg oral 05:01:24 PM {ta Health Tablet tablet EDT b(s System cyanocobalamin )} 100 mcg oral tablet pantoprazole 40 pantoprazole 40 06/24/2017 1 ORAL complet ed [facility] MG Delayed mg oral delayed 05:01:13 PM {ta Health Release Oral release tablet EDT b(s System Tablet )} pantoprazole 40 mg oral delayed release tablet ferrous sulfate ferrous sulfate 06/24/2017 1 ORAL complet ed [facility] 325 MG Delayed 325 mg (65 mg 05:01:07 PM {ta Health Release Oral elemental iron) EDT b(s System Tablet ferrous oral delayed )} sulfate 325 mg release tablet (65 mg elemental iron) oral delayed release tablet May discolor urine or feces.Swallow whol e. Do not crush. 200 ACTUAT albuterol 06/24/2017 AEROSOL 2 RESPIRATORY complete d [facility] Albuterol 90 mcg/inh 05:00:59 PM {puff(s)} (INHALATION) Health 0.09 inhalation EDT System MG/ACTUAT aerosol Metered Dose Inhaler albuterol 90 mcg/inh inhalation aerosol For inhalation only.It is very important that you take or use this exactly as directed. Do not skip doses or disconti nue unless directed by your doctor.Obtain medical advice before taking any non-pre scription drugs as some may affect the action of this medication.Shake well before use . Aspirin 81 MG aspirin 81 mg 06/24/2017 1 ORAL completed [facility] Delayed oral delayed 05:00:52 PM {tab(s)} Health Release Oral release EDT Syst em Tablet tablet aspirin 81 mg oral delayed release tablet atorvastatin atorvastatin 06/24/2017 TABLET 1 ORAL completed [facility] 40 MG Oral 40 mg oral 05:00:46 PM {tab(s)} Health Tablet tablet EDT System atorvastatin 40 mg oral tablet Aluminum Mylanta 06/24/2017 SUSPENSI 5 mL ORAL completed [facility] Hydroxide 80 Maximum 05:00:35 PM ON Health MG/ML / Strength oral EDT Sys tem Magnesium suspension Hydroxide 80 MG/ML / Simethicone 8 MG/ML Oral Suspension [Mylanta] Mylanta Maximum Strength oral suspension Shake well before use. Lisinopril 20 lisinopril 06/24/2017 TABLET 1 ORAL completed [facility] MG Oral 20 mg oral 05:00:29 PM {tab(s)} Health Tablet tablet EDT System lisinopril 20 mg oral tablet 3 ML Insulin HumaLOG 06/19/2017 SOLUTION 4 {units} completed [facility] Lispro 100 KwikPen 100 04:17:34 PM Health UNT/ML Pen units/mL EDT Syste m Injector injectable [Humalog] solution HumaLOG KwikPen 100 units/mL injectable solution Insulin insulin 06/19/2017 15 SUBCUT completed [facility] Glargine glargine 04:14:46 PM {units} ANEOUS Health insulin EDT System glargine Lisinopril 10 lisinopril 06/07/2017 TABLET 1 ORAL completed [facility] MG Oral 10 mg oral 02:05:23 PM {tab(s)} Health Tablet tablet EDT System lisinopril 10 mg oral tablet Amylases pancrelipase 06/07/2017 1 ORAL completed [facility] 18413 UNT / 12,000 01:41:46 PM {cap(s)} Health Endopeptidase units-38,000 EDT System s 23609 UNT / units-60,000 Lipase 51736 units oral UNT Delayed delayed Release Oral release Capsule capsule pancrelipase 12,000 units-38,000 units-60,000 units oral delayed release capsule 3 ML Insulin HumaLOG 06/07/2017 SOLUTION 6 {units} completed [facility] Lispro 100 KwikPen 100 01:37:41 PM Health UNT/ML Pen units/mL EDT Syste m Injector injectable [Humalog] solution HumaLOG KwikPen 100 units/mL injectable solution Insulin insulin 03/03/2017 SOLUTION 0 SUBCUT completed [facility] Lispro 100 lispro 100 02:23:45 PM ANEOUS Health UNT/ML units/mL EST System Injectable subcutaneous Solution solution insulin lispro 100 units/mL subcutaneous solution Ascorbic Acid ascorbic 12/30/2016 1 ORAL completed [facility] 500 MG Oral acid 500 mg 12:55:24 PM {tab(s)} Health Tablet oral tablet EDT System ascorbic acid 500 mg oral tablet fluticasone fluticasone 12/30/2016 1 NASAL completed [facility] Nasal Product nasal 12:54:46 PM {puff(s)} Health fluticasone EDT System nasal Lactulose 667 lactulose 10 12/30/2016 30 mL ORAL completed [facility] MG/ML Oral g/15 mL oral 12:53:46 PM Health Solution syrup EDT System lactulose 10 g/15 mL oral syrup Insulin insulin 12/30/2016 6 {units} SUBCUT completed [facility] Glargine glargine 12:51:42 PM ANEOUS Health insulin EDT System glargine guaiFENesin-d 11/23/2016 10 mL ORAL completed [facility] extromethorph 10:13:07 AM Health an EDT System Naproxen 500 naproxen 500 11/23/2016 1 ORAL completed [facility] MG Oral mg oral 10:09:33 AM {tab(s)} Health Tablet tablet EDT System naproxen 500 mg oral tablet ferrous ferrous 11/21/2016 5 mL ORAL completed [facility] sulfate 60 sulfate 300 08:43:52 PM Health MG/ML Oral mg/5 mL (60 EDT Sy stem Solution mg elemental ferrous iron) oral sulfate 300 liquid mg/5 mL (60 mg elemental iron) oral liquid Insulin insulin 11/13/2016 4 {units} SUBCUT completed [facility] Lispro lispro 08:41:10 AM ANEOUS He alth insulin EDT System lispro 3 ML Insulin Lantus 11/13/2016 SOLUTION 4 {units} SUBCUT complete d [facility] Glargine 100 Solostar Pen 08:40:42 AM ANEOUS Health UNT/ML Pen 100 units/mL EDT S ystem Injector subcutaneous [Lantus] solution Lantus Solostar Pen 100 units/mL subcutaneous solution Insulin insulin 11/08/2016 SOLUTION 0 SUBCUT completed [facility] Lispro 100 lispro 100 09:15:54 PM ANEOUS Health UNT/ML units/mL EDT System Injectable subcutaneous Solution solution insulin lispro 100 units/mL subcutaneous solution Insulin insulin 09/22/2016 0 SUBCUT completed [facility] Lispro 100 lispro 100 01:21:01 PM ANEOUS Health UNT/ML units/mL EDT System Injectable subcutaneous Solution solution insulin lispro 100 units/mL subcutaneous solution Nitroglycerin nitroglyceri 09/22/2016 1 {izzy} TRANSD complet ed [facility] 0.02 MG/MG n 2% 01:19:31 PM ERMAL H ealth Topical transdermal EDT Syste m Ointment ointment nitroglycerin 2% transdermal ointment Losartan losartan 50 09/22/2016 1 ORAL completed [facility] Potassium 50 mg oral 12:00:00 AM {tab(s)} Health MG Oral tablet EDT System Tablet losartan 50 mg oral tablet Acetaminophen acetaminophe 09/22/2016 1 ORAL completed [facility] 325 MG Oral n 325 mg 12:00:00 AM {tab(s)} Health Tablet oral tablet EDT System acetaminophen 325 mg oral tablet Magnesium magnesium 09/12/2016 1 ORAL completed [facility] Oxide 400 MG oxide 400 mg 01:23:04 PM {tab(s)} Health Oral Tablet (241.3 mg EDT Sys tem magnesium elemental oxide 400 mg magnesium) (241.3 mg oral tablet elemental magnesium) oral tablet POLYETHYLENE polyethylene 09/12/2016 17 g ORAL completed [facility] GLYCOL 3350 glycol 3350 11:45:21 AM Health 142 MG/ML oral powder EDT Sys tem Oral Solution for polyethylene reconstituti glycol 3350 on oral powder for reconstitutio n Amylases pancrelipase 09/12/2016 1 ORAL completed [facility] 38395 UNT / 12,000 11:44:46 AM {cap(s)} Health Endopeptidase units-38,000 EDT System s 62552 UNT / units-60,000 Lipase 89818 units oral UNT Delayed delayed Release Oral release Capsule capsule pancrelipase 12,000 units-38,000 units-60,000 units oral delayed release capsule Fluticasone fluticasone- 09/12/2016 POWDER 1 RESPIR completed [facility] propionate salmeterol 11:42:23 AM {puff(s)} [facility] 0.25 250 mcg-50 EDT (INHAL System MG/ACTUAT / mcg ATION) salmeterol inhalation 0.05 powder MG/ACTUAT Dry Powder Inhaler fluticasone-s almeterol 250 mcg-50 mcg inhalation powder lidocaine 5% Lidocaine 09/12/2016 FILM 1 {PATCH} TOPICA completed [facility] topical film 0.05 MG/MG 11:37:04 AM L Health Medicated EDT System Patch [Lidoderm] Albuterol albuterol-ip 09/12/2016 3 mL RESPIR completed [facility] 0.833 MG/ML / ratropium 11:36:39 AM [facility] Ipratropium 2.5 mg-0.5 EDT (INHAL System [place] 0.167 mg/3 mL ATION) MG/ML inhalation Inhalant solution Solution albuterol-ipr atropium 2.5 mg-0.5 mg/3 mL inhalation solution Insulin insulin 09/12/2016 8 {units} SUBCUT completed [facility] Glargine glargine 11:36:10 AM [facility] insulin EDT System glargine Docusate docusate-sen 09/12/2016 TABLET 2 ORAL completed [facility] Sodium 50 MG na 50 mg-8.6 12:00:00 AM {tab(s)} Health / sennosides, mg oral EDT Sys tem RETIREMENT 8.6 MG tablet Oral Tablet docusate-cassia a 50 mg-8.6 mg oral tablet Cefuroxime cefuroxime 09/12/2016 TABLET 1 ORAL completed [facility] 500 MG Oral 500 mg oral 12:00:00 AM {tab(s)} Health Tablet tablet EDT System cefuroxime 500 mg oral tablet Amlodipine 5 amLODIPine 5 09/12/2016 TABLET 1 ORAL completed [facility] MG Oral mg oral 12:00:00 AM {tab(s)} Health Tablet tablet EDT System amLODIPine 5 mg oral tablet Cyclobenzapri cyclobenzapr 09/12/2016 TABLET 1 ORAL completed [facility] ne ine 10 mg 12:00:00 AM {tab(s)} Health hydrochloride oral tablet EDT System 10 MG Oral Tablet cyclobenzapri ne 10 mg oral tablet Multivitamin Multiple 08/26/2015 TABLET 1 ORAL completed [facility] preparation Vitamins 03:23:21 PM {tab(s)} Health Multiple oral tablet EDT Syst em Vitamins oral tablet pantoprazole pantoprazole 08/26/2015 1 ORAL completed [facility] 40 MG Delayed 40 mg oral 03:23:05 PM {tab(s)} Health Release Oral delayed EDT Syst em Tablet release pantoprazole tablet 40 mg oral delayed release tablet Docusate docusate-sen 08/26/2015 TABLET 2 ORAL completed [facility] Sodium 50 MG na 50 mg-8.6 03:22:46 PM {tab(s)} Health / sennosides, mg oral EDT Sys tem RETIREMENT 8.6 MG tablet Oral Tablet docusate-cassia a 50 mg-8.6 mg oral tablet Aspirin 81 MG aspirin 81 08/26/2015 1 ORAL completed [facility] Chewable mg oral 03:21:36 PM {tab(s)} Health Tablet tablet, EDT System aspirin 81 mg chewable oral tablet, chewable atorvastatin atorvastatin 08/26/2015 TABLET 1 ORAL completed [facility] 10 MG Oral 10 mg oral 03:21:01 PM {tab(s)} Health Tablet tablet EDT System atorvastatin 10 mg oral tablet 3 ML Insulin HumaLOG Mix 08/26/2015 SUSPENSI 30 SUBCUT complete d [facility] Lispro 25 75/25 03:20:36 PM ON {units} ANEOUS Health UNT/ML / KwikPen EDT System Insulin, subcutaneous Protamine suspension Lispro, Human 75 UNT/ML Pen Injector [Humalog Mix] HumaLOG Mix 75/25 KwikPen subcutaneous suspension gabapentin gabapentin 08/26/2015 CAPSULE 1 ORAL completed [facility] 100 MG Oral 100 mg oral 03:14:42 PM {cap(s)} Health Capsule capsule EDT System gabapentin 100 mg oral capsule Aluminum Mylanta 08/26/2015 SUSPENSI 5 mL ORAL completed [facility] Hydroxide 80 Maximum 03:14:10 PM ON Health MG/ML / Strength EDT System Magnesium oral Hydroxide 80 suspension MG/ML / Simethicone 8 MG/ML Oral Suspension [Mylanta] Mylanta Maximum Strength oral suspension Folic Acid 1 folic acid 1 08/26/2015 TABLET 1 ORAL completed [facility] MG Oral mg oral 12:00:00 AM {tab(s)} Health Tablet folic tablet EDT Syste m acid 1 mg oral tablet Thiamine 100 thiamine 100 08/26/2015 TABLET 1 ORAL completed [facility] MG Oral mg oral 12:00:00 AM {tab(s)} Health Tablet tablet EDT System thiamine 100 mg oral tablet Lactulose 667 lactulose 10 08/07/2015 SYRUP 30 mL ORAL completed [facility] MG/ML Oral g/15 mL oral 11:14:07 AM Health Solution syrup EDT System lactulose 10 g/15 mL oral syrup 3 ML Insulin HumaLOG Mix 08/07/2015 SUSPENSI 14 SUBCUT complete d [facility] Lispro 25 75/25 11:13:34 AM ON {units} ANEOUS Health UNT/ML / KwikPen EDT System Insulin, subcutaneous Protamine suspension Lispro, Human 75 UNT/ML Pen Injector [Humalog Mix] HumaLOG Mix 75/25 KwikPen subcutaneous suspension Amylases pancrelipase 08/05/2015 1 ORAL completed [facility] 95882 UNT / 12,000 12:00:00 AM {cap(s)} Health Endopeptidase units-38,000 EDT System s 35849 UNT / units-60,000 Lipase 34610 units oral UNT Delayed delayed Release Oral release Capsule capsule pancrelipase 12,000 units-38,000 units-60,000 units oral delayed release capsule Docusate docusate-sen 04/17/2015 TABLET 2 ORAL completed [facility] Sodium 50 MG na 50 mg-8.6 11:21:56 AM {tab(s)} Health / sennosides, mg oral EST Sys tem RETIREMENT 8.6 MG tablet Oral Tablet docusate-cassia a 50 mg-8.6 mg oral tablet Medication should be taken with plenty o f water. Insulin Lispro insulin 04/16/2015 SUSPENSION 22 SUBCUTANEOUS co mpleted [facility] 25 UNT/ML / lispro-insulin 10:28:57 AM {units} Health Insulin, lispro EST System Protamine protamine 25 Lispro, Human units-75 75 UNT/ML units/mL Injectable subcutaneous Suspension suspension insulin lispro-insulin lispro protamine 25 units-75 units/mL subcutaneous suspension HumaLOG Mix 04/15/2015 10 SUBCUTANEOUS completed [facility] 75/25 KwikPen 01:14:06 PM {units} Health EST System HumaLOG Mix 04/15/2015 24 SUBCUTANEOUS completed [facility] 75/25 KwikPen 01:12:15 PM {units} Health EST System atorvastatin 10 atorvastatin 10 04/15/2015 TABLET 1 ORAL compl eted [facility] MG Oral Tablet mg oral tablet 01:11:11 PM {tab(s)} Health atorvastatin 10 EST Syst em mg oral tablet Zolpidem zolpidem 5 mg 04/15/2015 TABLET 1 ORAL completed [facility] tartrate 5 MG oral tablet 01:10:18 PM {tab(s)} Health Oral Tablet EST System zolpidem 5 mg oral tablet 200 ACTUAT Ventolin HFA 90 04/15/2015 AEROSOL 1 RESPIRATORY co mpleted [facility] Albuterol 0.09 mcg/inh 01:09:51 PM {puff(s) (INHALATION) Health MG/ACTUAT inhalation EST } Syst em Metered Dose aerosol Inhaler Ventolin HFA 90 mcg/inh inhalation aerosol For inhalation only.It is very important that you take or use this exactly as directed. Do not skip doses or disconti nue unless directed by your doctor.Obtain medical advice before taking any non-pre scription drugs as some may affect the action of this medication.Shake well before use . fluticasone-salmeterol 04/15/2015 1 RESPIRATORY comp leted [facility] 250 mcg-50 mcg 01:09:34 PM {puff(s)} (INHALATION) Health inhalation powder EST Sy stem montelukast 10 MG Oral m 04/15/2015 T 1 {tab(s)} ORAL compl eted [facility] Tablet montelukast 10 o 01:07:59 PM A Health mg oral tablet n EST B Syste m t L e E l T u k a s t 1 0 m g o r a l t a b l e t It is very important that you take or us e this exactly as directed. Do not skip doses or discontinue unless directed by your doctor. Citalopram 10 citalopram 04/15/2015 TABLET 1 ORAL completed [facility] MG Oral 10 mg oral 12:56:01 PM {tab(s)} Health Tablet tablet EST System citalopram 10 mg oral tablet Acetaminophen Fioricet 04/15/2015 CAPSULE 2 ORAL completed [facility] 300 MG / oral capsule 12:55:11 PM {cap(s)} Health butalbital 50 EST System MG / Caffeine 40 MG Oral Capsule [Fioricet] Fioricet oral capsule ammonium 04/15/2015 1 {izzy} TOPICA completed [facility] lactate 12:52:47 PM L Healt h topical EST System Pseudoephedri pseudoephedr 04/15/2015 1 ORAL completed [facility] ne ine 30 mg 12:00:00 AM {tab(s)} Health Hydrochloride oral tablet EST System 30 MG Oral Tablet pseudoephedri ne 30 mg oral tablet Loratadine 10 loratadine 04/15/2015 TABLET 1 ORAL completed [facility] MG Oral 10 mg oral 12:00:00 AM {tab(s)} Health Tablet tablet EST System loratadine 10 mg oral tablet Amlodipine 10 amLODIPine 04/15/2015 TABLET 1 ORAL completed [facility] MG Oral 10 mg oral 12:00:00 AM {tab(s)} Health Tablet tablet EST System amLODIPine 10 mg oral tablet Enalapril enalapril 20 04/15/2015 TABLET 1 ORAL completed [facility] Maleate 20 MG mg oral 12:00:00 AM {tab(s)} Health Oral Tablet tablet EST System enalapril 20 mg oral tablet 3 ML Insulin Lantus 02/06/2015 SOLUTION 20 SUBCUT completed [facility] Glargine 100 Solostar Pen 04:21:45 PM {units} ANEOUS Health UNT/ML Pen 100 units/mL EST S ystem Injector subcutaneous [Lantus] solution Lantus Solostar Pen 100 units/mL subcutaneous solution Do not drink alcoholic beverages when ta daniel this medication.It is very important that you take or use this exactly as dir ected. Do not skip doses or discontinue unless directed by your doctor.Keep in r efrigerator. Do not freeze. Insulin insulin 02/06/2015 20 SUBCUTANEOUS completed [facility] Glargine glargine 01:04:15 PM {units} Health insulin EST System glargine Enalapril enalapril 02/06/2015 TABL 1 ORAL completed [facility] Maleate 10 MG 10 mg oral 01:02:02 PM ET {tab(s)} Health Oral Tablet tablet EST System enalapril 10 mg oral tablet Sulfamethoxaz Bactrim DS 10/01/2014 TABL 1 ORAL completed [facility] ole 800 MG / 800 mg-160 03:23:29 PM ET {tab(s)} Health Trimethoprim mg oral EDT Syst em 160 MG Oral tablet Tablet [Bactrim] Bactrim DS 800 mg-160 mg oral tablet Avoid prolonged or excessive exposure to direct and/or artificial sunlight while taking this medication.Finish all this m edication unless otherwise directed by prescriber.Medication should be taken wi th plenty of water. Sulfamethoxazole Bactrim 10/01/2014 TABLET 1 ORAL completed [facility] 800 MG / DS 800 03:23:17 PM {tab(s)} Health Trimethoprim 160 mg-160 mg EDT System MG Oral Tablet oral [Bactrim] Bactrim tablet DS 800 mg-160 mg oral tablet Multivitamin Multiple 09/29/2014 TABLET 1 ORAL completed [facility] preparation Vitamins 12:00:00 AM {tab(s)} Health Multiple Vitamins oral EDT Sy stem oral tablet tablet Folic Acid 1 MG folic 09/29/2014 TABLET 1 ORAL completed [facility] Oral Tablet folic acid 1 mg 12:00:00 AM {tab(s)} Health acid 1 mg oral oral EDT Syste m tablet tablet Insulin Glargine insulin 08/05/2014 SOLUTION 10 SUBCU completed [facility] 100 UNT/ML glargine 01:05:35 PM {units} TANEO Health Injectable 100 EDT US System Solution insulin units/mL glargine 100 subcutane units/mL ous subcutaneous solution solution Enalapril Maleate enalapril 08/05/2014 TABLET 1 ORAL completed [facility] 10 MG Oral Tablet 10 mg 01:05:13 PM {tab(s)} Health enalapril 10 mg oral EDT Syst em oral tablet tablet Nicotine nicotine nicotine 08/05/2014 14 completed [facility] 11:23:57 AM {mg/24h} Heal th EDT System Nicotine nicotine nicotine 08/05/2014 0 completed [facility] 11:23:57 AM Health EDT System Thiamine 100 MG thiamine 08/05/2014 TABLET 1 ORAL completed [facility] Oral Tablet 100 mg 12:00:00 AM {tab(s)} Health thiamine 100 mg oral EDT Syst em oral tablet tablet Amoxicillin 875 amoxicill 08/05/2014 TABLET 1 ORAL completed [facility] MG / Clavulanate in-clavul 12:00:00 AM {tab(s)} Health 125 MG Oral anate 875 EDT Sys tem Tablet mg-125 mg amoxicillin-clavu oral lanate 875 mg-125 tablet mg oral tablet Folic Acid 1 MG folic 08/05/2014 TABLET 1 ORAL completed [facility] Oral Tablet folic acid 1 mg 12:00:00 AM {tab(s)} Health acid 1 mg oral oral EDT Syste m tablet tablet Multivitamin Multiple 08/05/2014 TABLET 1 ORAL completed [facility] preparation Vitamins 12:00:00 AM {tab(s)} Health Multiple Vitamins oral EDT Sy stem oral tablet tablet Levetiracetam 500 levETIRAc 08/05/2014 TABLET 1 ORAL completed [facility] MG Oral Tablet etam 500 12:00:00 AM {tab(s)} Health levETIRAcetam 500 mg oral EDT System mg oral tablet tablet Thiamine 100 MG thiamine 08/05/2014 1 ORAL completed [facility] Oral Tablet 100 mg 12:00:00 AM {tab(s)} Health thiamine 100 mg oral EDT Syst em oral tablet tablet atorvastatin 10 atorvasta 06/06/2014 TABLET 1 ORAL completed [facility] MG Oral Tablet tin 10 mg 12:06:06 PM {tab(s)} Health atorvastatin 10 oral EDT Syst em mg oral tablet tablet Aspirin 81 MG aspirin 06/06/2014 1 ORAL completed [facility] Delayed Release 81 mg 12:05:50 PM {tab(s)} Health Oral Tablet oral EDT System aspirin 81 mg delayed oral delayed release release tablet tablet Ciprofloxacin 250 ciproflox 05/23/2014 TABLET 1 ORAL completed [facility] MG Oral Tablet acin 250 12:00:00 AM {tab(s)} Health ciprofloxacin 250 mg oral EDT System mg oral tablet tablet Magnesium Oxide magnesium 05/23/2014 TABLET 1 ORAL completed [facility] 400 MG Oral oxide 400 12:00:00 AM {tab(s)} Health Tablet magnesium mg (241.3 EDT System oxide 400 mg mg (241.3 mg elemental elemental magnesium magnesium) oral ) oral tablet tablet Fluticasone Advair 04/02/2014 AEROSOL 1 RESPI completed [facility] propionate 0.115 HFA 115 03:55:38 PM {puff(s)} [facility] MG/ACTUAT / mcg-21 EST Y System salmeterol 0.021 mcg/inh (INHA MG/ACTUAT Metered inhalatio LATIO Dose Inhaler n aerosol N) Advair HFA 115 mcg-21 mcg/inh inhalation aerosol Check with your doctor before becoming p regnant.For inhalation only.Rinse mouth thoroughly after use.Shake well before u se. Azithromycin azithromycin 04/02/2014 TABLET 1 ORAL completed [facility] 500 MG Oral 500 mg oral 03:53:05 PM {tab(s)} Health Tablet tablet EST System azithromycin 500 mg oral tablet Do not take dairy products, antacids, or iron preparations within one hour of this medication.Finish all this medication un less otherwise directed by prescriber. Acetaminophen acetaminophen 12/28/2013 TABLET 1 ORAL completed [facility] 500 MG Oral 500 mg oral 11:08:36 AM {tab(s)} Health Tablet tablet EDT System acetaminophen 500 mg oral tablet This product contains acetaminophen. Do not use with any other product containing acetaminophen to prevent possible liver damage. insulin lispro completed [facility] protamin-lispro Mix 50-50 [facility] (HumaLOG Mix KwikPen Medi solomon 50-50 KwikPen) Cente r 100 unit/mL (50-50) Insulin Pen lisinopril 10 mg 1 completed TabletDirections: Susan sephs 1 tablet oral Medica l daily Center insulin glargine completed Reji tus (Lantus Solostar Solostar [facility] U-100 Insulin) U-100 Medi solomon 100 unit/mL (3 Insulin Ce nter mL) Insulin PenDirections: subcutaneous daily Acetaminophen 325 acetaminophen 2 completed MG Oral Tablet 325 mg Tablet, [facility] acetaminophen 325 Ordered By: Medical mg Tablet, Topher Araya enter Ordered By: MDDirections: 2 Cady Mcginnis, tablet oral MDDirections: 2 every six hours tablet oral every PRN PAIN six hours PRN PAIN Nystatin 176321 nystatin 1 completed [facility] UNT/ML Topical 100,000 Susan sephs Cream nystatin unit/gram Medical 100,000 unit/gram Cream, Ordered [place] Cream, Ordered By: Cady By: Ras Araya, MDDirections: 1 MDDirections: 1 application application topical twice a topical twice a day day Advair Diskus 0 RESPIRATORY completed [facility] (INHALATION) [facility] System Methadone methadone 35 ORAL completed [facility] methadone mg [facility] System Amlodipine 5 MG amLODIPine 5 mg 1 completed Oral Tablet Tablet, Ordered [facility] amLODIPine 5 mg By: Cady Medical Tablet, Ordered Regine Mcginnis er By: Cady Mcginnis MDDirections: 1 MDDirections: 1 tablet oral tablet oral daily daily heparin sodium, heparin 1 completed porcine 5000 (porcine) 5,000 mL [facility] UNT/ML Injectable unit/mL Medical Solution heparin Solution, [place] (porcine) 5,000 Ordered By: unit/mL Solution, Cady Mcginnis, Ordered By: MDDirections: 1 Leonardo Araya subcutaneous MDDirections: 1 every twelve mL subcutaneous hours every twelve hours bacitracin zinc bacitracin zinc 1 completed 0.5 UNT/MG 500 unit/gram [facility] Topical Ointment Ointment, Medical bacitracin zinc Ordered By: [place] 500 unit/gram Yiping Jin, Ointment, Ordered MDDirections: 1 By: Cady Mcginnis application MDDirections: 1 topical daily application topical daily Triamcinolone triamcinolone 1 completed [facility] Acetonide 1 MG/ML acetonide 0.1 % [facility] Topical Cream Cream, Ordered Medical triamcinolone By: Cady Munguia acetonide 0.1 % Ras, Cream, Ordered MDDirections: 1 By: Cady Mcginnis, application MDDirections: 1 topical twice a application day topical twice a day insulin detemir insulin detemir 15 completed Levemir [facility] 100 UNT/ML U-100 (Levemir U U-10 0 [facility] Injectable U-100 Insulin) Insu diann Medical Solution 100 unit/mL [facility] [Levemir] insulin Solution, detemir U-100 Ordered By: (Levemir U-100 Cady Mcginnis Insulin) 100 MDDirections: unit/mL Solution, 15 unit Ordered By: subcutaneous Cady Mcginnis, daily with MDDirections: 15 lunch unit subcutaneous daily with lunch Insulin Lispro insulin lispro completed Huma[facility] 100 UNT/ML (HumaLOG U-100 U-10 0 [facility] Injectable Insulin) 100 Insuli n Medical Solution unit/mL Center [Humalog] insulin Solution, lispro (HumaLOG Ordered By: U-100 Insulin) Cady Mcginnis, 100 unit/mL MDDirections: Solution, Ordered sliding scale By: Cady Mcginnis subcutaneous MDDirections: four times sliding scale daily before subcutaneous four meals and at times daily bedtime before meals and at bedtime Levetiracetam 500 levetiracetam 1 completed KePPRA [facility] MG Oral Tablet (KePPRA) 500 mg [facility] [Keppra] Tablet, Ordered Medical levetiracetam By: Cady Munguia (KePPRA) 500 mg Ras, Tablet, Ordered MDDirections: 1 By: Cady Mcginnis, tablet oral MDDirections: 1 twice a day tablet oral twice a day pantoprazole 40 pantoprazole 40 1 completed [facility] MG Delayed mg [facility] Release Oral tablet,delayed Medical Tablet release [place] pantoprazole 40 (DR/EC), mg tablet,delayed Ordered By: release (DR/EC)Cady, Ordered By: MDDirections: 1 Cady Mcginnis, tablet oral MDDirections: 1 daily before tablet oral daily breakfast before breakfast Docusate Sodium sennosides-docu 2 completed [facility] 50 MG / sate sodium 8.6 [facility] sennosides, RETIREMENT mg-50 mg Medical 8.6 MG Oral Tablet, Ordered Center Tablet By: Cady sennosides-docusa Jin, te sodium 8.6 MDDirections: 2 mg-50 mg Tablet, tablet oral Ordered By: daily at Yiping Jin, bedtime MDDirections: 2 tablet oral daily at bedtime tramadol traMADol 50 mg 1 completed [facility] hydrochloride 50 Tablet, Ordered [facility] MG Oral Tablet By: Cady Medical traMADol 50 mg Jin, Cente r Tablet, Ordered MDDirections: 1 By: Cady Jin, tablet oral MDDirections: 1 every eight tablet oral every hours PRN eight hours PRN MODERATE PAIN MODERATE PAIN Insurance Providers Payer name Policy type / Policy ID Covered Covered constitution party's Policy Plan Coverage type constitution party ID relationship to Joseph Information joseph MEDICAID [id number] SP [id number] MEDICARE [id number] SP [id number] W [id number] 01 [id number] 01 [id number] T46 W [id number] HIP MEDICAID O [id number] HMO OP JOHN W [id number] Medicaid Managed Care [id number] Self [id number] C Manage Care (Non-HMO) Medicaid 13 [id number] Self [id number] Manage Care Medicaid GME Medicaid [id number] C John Care Medicaid [id number] MEDICAID [id number] Medicaid [id number] S [id number] Regular Clinic Visit Methdone Lab Commercial [id number] Medicaid Medicaid [id number] Problems, Conditions, and Diagnoses Code Display Name Description Problem Type Effective Data Sour ce(s) Dates Z86.19 History of History of Problem [facility] hepatitis C hepatitis C family Health Syste m member I10 Essential Essential Problem [facility] hypertension with hypertension with family Health System goal blood pressure goal blood pressure member less than 140/90 less than 140/90 K86.1 Chronic Chronic Problem [facility] pancreatitis, pancreatitis, family Health S ystem unspecified unspecified member pancreatitis type pancreatitis type E11.65 Type 2 diabetes Type 2 diabetes Problem [facility] mellitus with mellitus with [facility] ystem hyperglycemia hyperglycemia member K86.1 Chronic Chronic Problem [facility] pancreatitis pancreatitis [facility] tem member E87.1 Hyponatremia Hyponatremia Problem [facility] member B19.20 Hepatitis C Hepatitis C Problem [facility] member Z87.898 History of History of Problem [facility] substance abuse substance abuse [facility] System member E11.21 Diabetic Diabetic Problem [facility] nephropathy with nephropathy with [facility] proteinuria proteinuria member E11.40 Diabetic neuropathy Diabetic neuropathy Problem [facility] member E13.8 Secondary DM with Secondary DM with Problem [facility] complication complication [facility] tem member K59.00 Chronic Chronic Problem [facility] constipation constipation [facility] tem member E11.00 Type 2 diabetes Type 2 diabetes Problem [facility] mellitus with mellitus with [facility] ystem hyperosmolarity hyperosmolarity member without nonketotic without nonketotic hyperglycemic-hyper hyperglycemic-hyper osmolar coma (nk osmolar coma (nk B18.2 Hepatitis C, Hepatitis C, Problem [facility] chronic chronic [facility] System member K86.1 Chronic [facility] tem member E13.65 Secondary diabetes Secondary diabetes Problem [facility] mellitus, mellitus, [facility] System uncontrolled uncontrolled member K86.1 Other chronic Other [facility] tem member E11.01 Type 2 diabetes Type 2 diabetes Problem [facility] mellitus with mellitus with [facility] ystem hyperosmolar hyperosmolar member nonketotic nonketotic hyperglycemia hyperglycemia R56.9 Seizure Seizure Problem [facility] member N17.9 Acute renal failure Acute renal failure Problem [facility] member E87.1 Acute hyponatremia Acute hyponatremia Problem [facility] member E11.649 Type 2 diabetes TYPE 2 DIABETES Diagnosis 11/18/2019 [facility] mellitus with MELLITUS WITH 05:24:00 AM Medical Center hypoglycemia HYPOGLYCEMIA EDT without coma WITHOUT COMA E86.0 Dehydration DEHYDRATION Diagnosis 11/18/2019 [facility] 05:24:00 AM Medical Cente r EDT R53.1 Weakness WEAKNESS Diagnosis 11/18/2019 [place] 05:24:00 AM Medical Cente r EDT F17.210 Nicotine NICOTINE Diagnosis 10/03/2019 [facility] dependence, DEPENDENCE, 09:15:[address] cigarettes, CIGARETTES, EDT uncomplicated UNCOMPLICATED I10 Essential (primary) ESSENTIAL (PRIMARY) Diagnosis 020 [facility] hypertension HYPERTENSION 09:15:00 AM Medical C enter EDT E11.9 Type 2 diabetes TYPE 2 DIABETES Diagnosis 10/03/2019 [facility] mellitus without MELLITUS WITHOUT 09:15:[facility] [place] complications COMPLICATIONS EDT N93.9 Abnormal uterine ABNORMAL UTERINE Diagnosis 10/03/2019 Sa [facility] [place] and vaginal AND VAGINAL 09:15:[address] bleeding, BLEEDING, EDT unspecified UNSPECIFIED 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 behavioral BEHAVIORAL EDT disturbance DISTURBANCE J30.2 Other seasonal Other seasonal Diagnosis 09/09/2018 [facility] allergic rhinitis allergic rhinitis 12:00:00 AM ([facility] H25.9 Unspecified Unspecified Diagnosis 09/04/2018 [facility] age-related age-related 12:00:00 AM ([facility] cataract cataract EDT [facility]) Z23 Encounter for Encounter for Diagnosis 08/24/2018 [facility] immunization immunization 12:00:00 AM ([facility] Z11.1 Encounter for Encounter for Diagnosis 08/24/2018 [facility] E screening for screening for 12:00:00 AM ([facility] y respiratory respiratory EDT [facility] tuberculosis tuberculosis Center) 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 [facility] RE heart disease of disease of [place] 12:00:00 AM ([facility] [place] coronary coronary artery w/o EDT [facility] artery without ang pctrs Center) angina pectoris I10 Essential (primary) Essential (primary) Diagnosis 019 [facility] hypertension hypertension 12:00:00 AM ([facility] EDT [facility] [place]) D51.9 Vitamin B12 Vitamin B12 Diagnosis 08/24/2018 [facility] deficiency anemia, deficiency anemia, 12:00:00 AM ([facility] unspecified unspecified EDT [facility]) K21.9 Gastro-esophageal Gastro-esophageal Diagnosis 08/24/2018 [facility] reflux disease reflux disease 12:00:00 AM ([facility] without esophagitis without esophagitis EDT [facility]) Z00.00 Encounter for Encntr for general Diagnosis 08/24/2018 [facility] general adult adult medical exam 12:00:00 AM (R egency medical examination w/o abnormal EDT [facility] without abnormal findings Center) findings R52 Pain, unspecified Pain, unspecified Diagnosis 08/24/2018 [facility] 12:00:00 AM ([facility] EDT [facility] [place]) E78.49 Other Other Diagnosis 08/24/2018 [facility] hyperlipidemia hyperlipidemia 12:00:00 AM ([facility] EDT [facility]) E11.9 Type 2 diabetes Type 2 diabetes Diagnosis 08/24/2018 [facility] mellitus without mellitus without 12:00:00 AM ( [facility] complications complications EDT [facility] [place]) 070.70 UNSPECIFIED VIRAL Hepatitis C Diagnosis 08/20/2018 [facility] HEPATITIS C WITHOUT 06:49:00 PM [facility] HEPATIC COMA EDT 401.9 UNSPECIFIED Hypertension Diagnosis 08/20/2018 [facility] ESSENTIAL 06:49:00 PM [facility] al HYPERTENSION EDT 493.90 ASTHMA UNSPECIFIED Asthma Diagnosis 08/20/2018 [facility] 06:49:00 PM [facility] al EDT UNCONTROLLED UNCONTROLLED Diagnosis 08/20/2018 [facility] [place] t DIABETES MILLITUS DIABETES MILLITUS 06:49:00 PM [facility] WITH HYPERGLYCEMIA WITH HYPERGLYCEMIA EDT E11.65 Type 2 diabetes Type 2 diabetes Diagnosis 08/20/2018 [facility] mellitus with mellitus with 06:49:00 PM [facility] hyperglycemia hyperglycemia EDT E11.22 Type 2 diabetes Type 2 diabetes Diagnosis 08/20/2018 [facility] mellitus with mellitus with 06:49:00 PM [facility] diabetic chronic diabetic chronic EDT kidney disease kidney disease 272.4 OTHER AND Hyperlipidemia Diagnosis 08/20/2018 [facility] Moun t UNSPECIFIED 06:49:00 PM [facility] lucero HYPERLIPIDEMIA EDT I12.9 Hypertensive Hypertensive renal Diagnosis 08/20/2018 [facility] chronic kidney disease, stage 1 06:49:00 PM [facility] disease with stage through stage 4 or EDT 1 through stage 4 unspecified chronic chronic kidney kidney disease disease, or unspecified chronic kidney disease Z59.0 Homelessness Homeless Diagnosis 08/20/2018 [facility] 06:49:00 PM [facility] al EDT 250.00 DIABETES MELLITUS DM (diabetes Diagnosis 08/20/2018 [facility] WITHOUT MENTION OF mellitus), type 2 06:49:00 P [facility] COMPLICATION TYPE EDT II OR UNSPECIFIED TYPE NOT STATED UNCONTROLLED 577.1 CHRONIC Pancreatitis, Diagnosis 08/20/2018 [facility] PANCREATITIS chronic 06:49:00 PM [facility] ital EDT N18.9 Chronic kidney Chronic kidney Diagnosis 08/20/2018 [facility] disease, disease 06:49:00 PM [facility] al unspecified EDT D64.9 Anemia, unspecified Chronic anemia Diagnosis 08/20/2018 [facility] 06:49:00 PM [facility] al EDT R55 Syncope and Syncope Diagnosis 08/20/2018 [facility] collapse 06:49:00 PM [facility] al EDT NEEDS INSULINS NEEDS INSULINS Diagnosis 08/20/2018 [facility] 10:16:00 AM [facility] al EDT E11.9 Type 2 diabetes Type 2 diabetes Diagnosis 05/15/2018 ADIEL MAYERS ([facility] mellitus without mellitus without 05:51:55 PM Tori cross complications complications EST [facility]) [id number] Endoscopic Endoscopic Diagnosis 05/03/2018 [facility] inspection of inspection of 12:00:00 AM [facility] digestive tract digestive tract EST distal to distal to duodenojejunal duodenojejunal junction junction D64.9 Severe anemia Severe anemia Diagnosis 05/02/2018 [facility] re 12:00:00 AM Health System EST D64.9 Severe anemia Severe anemia Diagnosis 05/02/2018 [facility] 12:00:00 AM Health System EST - 05/02/2018 03:14:22 PM EST J45.909 Unspecified asthma, Uncomplicated Diagnosis 04/28/2018 [facility]00 [facility] EST K64.8 Other hemorrhoids Other hemorrhoids Diagnosis 04/28/2018 [facility] EST K29.70 Gastritis, Gastritis without Diagnosis 04/28/2018 [facility] unspecified, bleeding 10:26:00 PM [facility] without bleeding EST Episode of syncope Episode of syncope Diagnosis 9 [facility] 10:26:[facility] EST FALL FALL Diagnosis 04/28/2018 [facility] 07:21:00 [facility] EST R55 Syncope Syncope Diagnosis 05/02/2018 [facility] 03:14:04 PM Health System EST Surgeries/Procedures Procedure Description Date Indications Data Source(s) Blood, Occult Feces 05/09/2018 [facility] 02:00:00 PM System EST - 05/09/2018 02:00:00 PM EST Electrocardiogram 12 Lead 05/01/2018 [facility] 11:04:00 AM System EST - 05/01/2018 11:04:00 AM EST Iron, Serum 04/29/2018 [facility] th 04:58:00 PM System EST - 04/29/2018 04:58:00 PM EST Total Iron Binding Capacity - 04/29/2018 [facility] MV Only 04:58:00 PM System EST - 04/29/2018 04:58:00 PM EST Transferrin, Serum - [facility] 04/29/2018 [facility] Ki Only 04:58:00 PM System EST - 04/29/2018 04:58:00 PM EST Ferritin, Serum - [facility] 04/29/2018 [facility] Ki Only 04:58:00 PM System EST - 04/29/2018 04:58:00 PM EST Vitamin B12, Serum - [facility] 04/29/2018 [facility] Ki Only 04:58:00 PM System EST - 04/29/2018 04:58:00 PM EST Folate, Serum - [place] 04/29/2018 [facility] Only 04:58:00 PM System EST - 04/29/2018 04:58:00 PM EST Reticulocyte Profile 04/29/2018 [facility] 04:58:00 PM System EST - 04/29/2018 04:58:00 PM EST Type + Screen 04/29/2018 [facility] He alth 04:58:00 PM System EST - 04/29/2018 04:58:00 PM EST MV D-Dimer High Sensitivity 04/29/2018 [facility] 04:58:00 PM System EST - 04/29/2018 04:58:00 PM EST Lactate Dehydrogenase, Serum 04/29/2018 [facility] 04:58:00 PM System EST - 04/29/2018 04:58:00 PM EST Magnesium, Serum 04/29/2018 [facility] 04:58:00 PM System EST - 04/29/2018 04:58:00 PM EST Comprehensive Metabolic Panel 04/29/2018 [facility] 04:58:00 PM System EST - 04/29/2018 04:58:00 PM EST CBC w/Auto Differential- MV 04/29/2018 [facility] Only 04:58:00 PM System EST - 04/29/2018 04:58:00 PM EST Echocardiogram 2D 04/29/2018 [facility] 12:37:00 PM System EST - 04/29/2018 12:37:00 PM EST Electrocardiogram 12 Lead 04/28/2018 [facility] 11:03:00 PM System EST - 04/28/2018 11:03:00 PM EST XR Chest Single AP Portable 04/28/2018 [facility] 10:51:03 PM System EST - 04/28/2018 10:51:03 PM EST XR Chest Single AP view 04/28/2018 [facility] 08:05:00 PM System EST - 04/28/2018 08:05:00 PM EST XR Chest PA and Left Lateral 04/05/2018 [facility] 06:09:29 PM System EST - 04/05/2018 06:09:29 PM EST Electrocardiogram 12 Lead 04/05/2018 [facility] 05:21:00 PM System EST - 04/05/2018 05:21:00 PM EST CBC w/Auto Differential- 04/05/2018 [facility] NR/SECC Only 05:10:00 PM System EST - 04/05/2018 05:10:00 PM EST Electrocardiogram 12 Lead 06/16/2017 [facility] 04:38:00 PM System EDT - 06/16/2017 04:38:00 PM EDT Electrocardiogram 12 Lead 12/28/[facility] 04:04:00 AM System EDT - 12/28/2016 04:04:00 AM EDT Electrocardiogram 12 Lead 12/28/2016 [facility] 12:19:48 AM System EDT - 12/28/2016 12:19:48 AM EDT Magnesium, Serum 11/21/2016 [facility] 10:21:00 AM System EDT - 11/21/2016 10:21:00 AM EDT Electrocardiogram 12 Lead 11/19/2016 [facility] 11:07:00 AM System EDT - 11/19/2016 11:07:00 AM EDT Electrocardiogram 12 Lead 11/08/2016 [facility] 12:40:00 PM System EDT - 11/08/2016 12:40:00 PM EDT Electrocardiogram 12 Lead 09/18/2016 [facility] 08:53:00 AM System EDT - 09/18/2016 08:53:00 AM EDT XR Lumbar Spine 1 View 09/08/2016 [facility] 11:54:44 PM System EDT - 09/08/2016 11:54:44 PM EDT XR Cervical Spine 1 View 09/08/2016 [facility] 11:54:24 PM System EDT - 09/08/2016 11:54:24 PM EDT Hepatitis Acute Panel 09/07/2016 [facility] 07:10:00 AM System EDT - 09/07/2016 07:10:00 AM EDT Lactic Acid, Plasma *[place] 08/22/2015 [facility] KI ONLY* 05:29:00 AM System EDT - 08/22/2015 05:29:00 AM EDT Comprehensive Metabolic Panel 08/22/2015 [facility] 05:29:00 AM System EDT - 08/22/2015 05:29:00 AM EDT CBC w/Auto Differential- MV 08/22/2015 [facility] Only 05:28:00 AM System EDT - 08/22/2015 05:28:00 AM EDT Lipase, Serum [facility]/2015 [facility] 10:39[facility]00 PM System EDT - 08/21/2015 10:39:00 PM EDT Amylase, Serum 08/21/2015 [facility] 10:39:00 PM System EDT - 08/21/2015 10:39:00 PM EDT Comprehensive Metabolic Panel 08/21/2015 [facility] 10:39:00 PM System EDT - 08/21/2015 10:39:00 PM EDT XR Abdomen AP 07/31/2015 [facility]th 11:07:00 AM System EDT - 07/31/2015 11:07:00 AM EDT Electrocardiogram 12 Lead 07/31/2015 [facility] 01:29:00 AM System EDT - 07/31/2015 01:29:[address] Abdomen without Contrast 04/17/2015 [facility] 08:52:35 AM System EST - 04/17/2015 08:52:35 AM EST Basic Metabolic Panel 04/14/2015 [facility] 11:47:00 PM System EST - 04/14/2015 11:47:00 PM EST Comprehensive Metabolic Panel 04/11/2015 [facility] 09:38:00 PM System EST - 04/11/2015 09:38:00 PM EST Acetone, Blood 04/11/2015 [facility]th 06:06:40 AM System EST - 04/11/2015 06:06:40 AM EST [facility]ogram 12 [facility] EST - 02/04/2015 09:57:00 AM EST Electrocardiogram 12 Lead 02/02/2015 [facility] 07:00:00 PM System EST - 02/02/2015 07:00:00 PM EST XR Chest AP and Left Lateral 09/25/2014 [facility] 07:25:00 PM System EDT - 09/25/2014 07:25:00 PM EDT Culture Bacteria Blood 08/04/2014 [facility] 11:10:00 AM System EDT - 08/04/2014 11:10:00 AM EDT Magnesium, Serum 08/04/2014 [facility] 09:15:00 AM System EDT - 08/04/2014 09:15:00 AM EDT Comprehensive Metabolic Panel 08/04/2014 [facility] 09:14:00 AM System EDT - 08/04/2014 09:14:00 AM EDT CBC w/Auto Differential- MV 08/04/2014 [facility] Only 09:14:00 AM System EDT - 08/04/2014 09:14:00 AM EDT US Abdomen Complete 08/04/2014 [facility] 08:06:00 AM System EDT - 08/04/2014 08:06:00 AM EDT Electrocardiogram 12 Lead 08/03/2014 [facility] 10:03:00 AM System EDT - 08/03/2014 10:03:00 AM EDT Lactic Acid, Plasma *[place] 08/03/2014 [facility] KI ONLY* 02:41:42 AM System EDT - 08/03/2014 02:41:42 AM EDT Hepatitis C Viral RNA 08/02/2014 [facility] Quantitative PCR 02:55:00 PM System EDT - 08/02/2014 02:55:00 PM EDT Blood Gas, Whole Blood 08/02/2014 [facility] 02:40:00 PM System EDT - 08/02/2014 02:40:00 PM EDT Electroencephalogram 08/02/2014 [facility] 12:59:35 PM System EDT - 08/02/2014 12:59:35 PM EDT Electrocardiogram 12 Lead 08/02/2014 [facility] 10:05:00 AM System EDT - 08/02/2014 10:05:00 AM EDT Comprehensive Metabolic Panel 08/02/2014 [facility] 09:32:12 AM System EDT - 08/02/2014 09:32:12 AM EDT Electroencephalogram 05/22/2014 [facility] 12:55:00 PM System EDT - 05/22/2014 12:55:00 PM EDT Venipuncture 05/08/2014 [facility] th 01:00:04 PM System EST - 05/08/2014 01:00:04 PM EST Venipuncture 05/01/2013 [facility] 12:00:00 AM System EST - 05/01/2013 12:00:00 AM EST Venipuncture 10/26/2012 [facility] 12:00:00 AM System EDT - 10/26/2012 12:00:00 AM EDT Electrocardiogram 12 Lead 10/11/2012 [facility] 11:33:00 AM System EDT - 10/11/2012 11:33:00 AM EDT XR Chest PA and Left Lateral 10/11/2012 [facility] 11:16:00 AM System EDT - 10/11/2012 11:16:00 AM EDT Hepatitis C Viral RNA 06/18/2012 [facility] Genotype LiPA 10:44:00 AM System EDT - 06/18/2012 10:44:00 AM EDT Electrocardiogram 12 Lead 06/30/2011 [facility] 11:14:00 AM System EDT - 06/30/2011 11:14:00 AM EDT Electrocardiogram 12 Lead 06/30/2011 [facility] 11:12:00 AM System EDT - 06/30/2011 11:12:00 AM EDT Vitamin B12, Serum 12/30/2010 [facility] 07:00:00 AM System EDT - 12/30/2010 07:00:00 AM EDT Folate, Serum 12/30/2010 [facility] 07:[facility]00 AM System EDT - 12/30/2010 07:00:00 AM EDT Vitamin D 25 Hydroxy 12/30/2010 [facility] 07:00:00 AM System EDT - 12/30/2010 07:00:00 AM EDT Basic Metabolic Panel 12/30/2010 [facility] 07:00:00 AM System EDT - 12/30/2010 07:00:00 AM EDT Electrocardiogram 12 Lead 12/30/2010 [facility] 12:57:42 AM System EDT - 12/30/2010 12:57:42 AM EDT Results ID Date Data Source [id number] 11/24/2019 01:45:00 PM EDT [facility] Name Value Range Interpretation Description Data Sup porting Code Source(s) Document(s ) SARS [facility] coronavirus 2 RNA This lab was ordered by [facility] and reported by [facility]. ID Date Data Source [id number] 11/18/2019 07:32:00 AM EDT [facility] 0 Name Value Range Interpretation Description Data Sup porting Code Source(s) Document(s ) UNK CLEAR <content Saint styleCode="[facility] Shemar d">Urine Medical Clarity Center </content>GRETA R <content styleCode="Iman lics"> (CLEAR )</content> Glucose NEGATIVE <content Saint [Mass/volume] styleCode="David Lopezs in Urine by d">Urine Medical Test strip Glucose Center </content>NEGA TIVE MG/DL<content styleCode="Iman lics"> (NEGATIVE MG/DL)</conten t> Color of Urine YELLOW <content Saint styleCode="David Shemar d">Color, Medical Urine Center </content>YELL OW <content styleCode="Iman lics"> (YELLOW )</content> pH of Urine by 4.5-8.0 <content Saint Test strip styleCode="David Shemar d">Urine pH Medical </content>6.0 Center <content styleCode="Iman lics"> (4.5-8.0 )</content> UNK NEGATIVE <content Saint styleCode="David Shemar d">Urine Medical Bilirubin Center </content>NEGA TIVE <content styleCode="Iman lics"> (NEGATIVE )</content> Ketones NEGATIVE <content [facility] [Mass/volume] styleCode="David Lopezs in Urine by d">Urine Medical Test strip Ketone Center </content>NEGA TIVE MG/DL<content styleCode="Iman lics"> (NEGATIVE MG/DL)</conten t> Specific 1.015-1.02 <content Saint gravity of 5 styleCode="David Lopezs Urine by Test d">Urine Medical strip Specific Center [place] </content>1.01 5 <content styleCode="Iman lics"> (1.015-1.025 )</content> Hemoglobin NEGATIVE <content Saint [Presence] in styleCode="David Lopezs Urine by Test d">Urine Blood Medical strip </content>NEGA Center TIVE <content styleCode="Iman lics"> (NEGATIVE )</content> Urobilinogen 0.2-1.0 <content Saint [Units/volume] styleCode="David Shemar in Urine by d">Urine Medical Test strip Urobilinogen Center </content>0.2 MG/DL<content styleCode="Iman lics"> (0.2-1.0 MG/DL)</conten t> Protein NEGATIVE <content Saint [Mass/volume] styleCode="David Lopezs in Urine by d">Urine Medical Test strip Protein Center </content>30 MG/DL<content styleCode="Iman lics"> (NEGATIVE MG/DL)</conten t> Nitrite NEGATIVE <content Saint [Presence] in styleCode="David Lopezs Urine by Test d">Urine Medical strip Nitrite Center </content>NEGA TIVE <content styleCode="Iman lics"> (NEGATIVE )</content> Leukocyte NEGATIVE <content Saint esterase styleCode="David Lopezs [Presence] in d">Urine Medical Urine by Test Leukocyte Center strip </content>NEGA TIVE <content styleCode="Iman lics"> (NEGATIVE )</content> ID Date Data Source [id number] 11/18/2019 06:20:00 AM EDT [facility] 0400 Name Value Range Interpretation Description Data Sup porting Code Source(s) Document(s ) Leukocytes 4.4-11.0 <content Saint [#/volume] in styleCode="Bold Shemar Blood by ">White Blood Medical Automated count Cell Count Center </content>8.88 KCUMM<content styleCode="Ital ics"> (4.4-11.0 KCUMM)</content > Erythrocytes 4.0-5.1 Below low normal <content Saint [#/volume] in styleCode="Bold Shemar Blood by ">Red Blood Medical Automated count Cell Count Center </content>3.11 MCUMM L<content styleCode="Ital ics"> (4.0-5.1 MCUMM)</content > Hemoglobin 12.3-16. Below low normal <content Saint [Mass/volume] in 0 styleCode="Bold Shemar Blood ">Hemoglobin Medical </content>9.1 Center G/DL L<content styleCode="Ital ics"> (12.3-16.0 G/DL)</content> Erythrocyte mean 80.0-100 <content Saint corpuscular .0 styleCode="Bold Shemar volume [Entitic ">Mean Medical volume] by Corpuscular Center Automated count Volume </content>89.4 FL<content styleCode="Ital ics"> (80.0-100.0 FL)</content> Erythrocyte mean 26.0-34. <content Saint corpuscular 0 styleCode="Bold Shemar hemoglobin ">Mean Medical [Entitic mass] Corposcular Center by Automated Hemoglobin count </content>29.3 PG<content styleCode="Ital ics"> (26.0-34.0 PG)</content> Hematocrit 36.0-46. Below low normal <content Saint [Volume 0 styleCode="Bold Shemar Fraction] of ">Hematocrit Medical Blood by </content>27.8 Center Automated count % L<content styleCode="Ital ics"> (36.0-46.0 %)</content> Erythrocyte mean 32.0-37. <content Saint corpuscular 0 styleCode="Bold Shemar hemoglobin ">Mean Corpus. Medical concentration Hgb Center [Mass/volume] by Concentration Automated count (MCHC) </content>32.7 G/DL<content styleCode="Ital ics"> (32.0-37.0 G/DL)</content> Platelet mean 8.0-11.0 <content Saint volume [Entitic styleCode="Bold Shemar volume] in Blood ">Mean Platelet Medical by Automated Volume Center count </content>9.5 FL<content styleCode="Ital ics"> (8.0-11.0 FL)</content> Neutrophils 36-66 Above high <content Saint [#/volume] in normal styleCode="Bold Shemar Blood by ">Neutrophil Medical Automated count </content>75.8 Center % H<content styleCode="Ital ics"> (36-66 %)</content> Platelets 130-400 Above high <content Saint [#/volume] in normal styleCode="Bold Shemar Blood by ">Platelet Medical Automated count Count Center </content>520 KCUMM H<content styleCode="Ital ics"> (130-400 KCUMM)</content > Erythrocyte 11.5-14. <content Saint distribution 5 styleCode="Bold Shemar width [Ratio] by ">Red Cell Medical Automated count Distribution Center Width </content>14.0 %<content styleCode="Ital ics"> (11.5-14.5 %)</content> UNK 1.6-7.3 <content Saint styleCode="Bold Shemar ">Neutrophil Medical Count Center </content>6.74 KCUMM<content styleCode="Ital ics"> (1.6-7.3 KCUMM)</content > UNK 1.0-4.8 <content Saint styleCode="Bold Shemar ">Lymphocyte Medical Count Center </content>1.56 KCUMM<content styleCode="Ital ics"> (1.0-4.8 KCUMM)</content > Monocytes 3.0-10.0 <content Saint [#/volume] in styleCode="Bold Shemar Blood by ">Monocyte Medical Automated count </content>5.3 Center %<content styleCode="Ital ics"> (3.0-10.0 %)</content> Eosinophils 0-5.0 <content Saint [#/volume] in styleCode="Bold Shemar Blood by ">Eosinophil Medical Automated count </content>0.5 Center %<content styleCode="Ital ics"> (0-5.0 %)</content> UNK 0.2-0.9 <content Saint styleCode="Bold Shemar ">Monocyte Medical Count Center </content>0.47 KCUMM<content styleCode="Ital ics"> (0.2-0.9 KCUMM)</content > Lymphocytes 24.0-44. Below low normal <content Saint [#/volume] in 0 styleCode="Bold Shemar Blood by ">Lymphocyte Medical Automated count </content>17.6 Center % L<content styleCode="Ital ics"> (24.0-44.0 %)</content> UNK 0 <content Saint styleCode="Bold Shemar ">Nucleated Red Medical Blood Cell Center </content>0.0 /100<content styleCode="Ital ics"> (0 /100)</content> UNK 0.0-0.6 <content Saint styleCode="Bold Shemar ">Eosinophil Medical Count Center </content>0.04 KCUMM<content styleCode="Ital ics"> (0.0-0.6 KCUMM)</content > UNK 0.0-0.3 <content Saint styleCode="Bold Shemar ">Basophil Medical Count Center </content>0.04 KCUMM<content styleCode="Ital ics"> (0.0-0.3 KCUMM)</content > Basophils 0.0-1.0 <content Saint [#/volume] in styleCode="Bold [facility] Blood by ">Basophil Medical Automated count </content>0.5 Center %<content styleCode="Ital ics"> (0.0-1.0 %)</content> UNK 0-0.1 <content Saint styleCode="Bold Shemar ">Immature Medical Granulocyte Center Count </content>0.03 KCUMM<content styleCode="Ital ics"> (0-0.1 KCUMM)</content > UNK < 1 <content Saint styleCode="Bold Shemar ">Immature Medical Granulocyte Center Ratio </content>0.3 %<content styleCode="Ital ics"> (< 1 %)</content> UNK 0.0 <content Saint styleCode="Bold Shemar ">Nucleated Red Medical Blood Cell Center Count </content>0.00 KCUMM<content styleCode="Ital ics"> (0.0 KCUMM)</content > ID Date Data Source GFR(Creatinine).[id number] 11/18/2019 06:20:00 AM EDT [facility] 0-0400 Name Value Range Interpretation Code Description Data Nyla rce(s) Supporting Document(s ) UNK > 60 Below low normal <content [facility] styleCode="Bold"> Medical Cent er EGFR </content>49 GFR L<content styleCode="Italic s"> (> 60 GFR)</content> ID Date Data Source [id number] 11/18/2019 06:20:00 AM EDT [facility] Name Value Range Interpretation Description Data Sup porting Code Source(s) Document(s ) Sodium 137-145 Below low normal <content Saint [Moles/volume] styleCode="David Lopezs in Serum or d">Sodium Medical Plasma </content>134 Center MEQ/L L<content styleCode="Iman lics"> (137-145 MEQ/L)</conten t> Carbon 22-30 Below low normal <content Saint dioxide, total styleCode="David Lopezs [Moles/volume] d">Carbon Medical in Serum or Dioxide Center Plasma </content>19 MEQ/L L<content styleCode="Iman lics"> (22-30 MEQ/L)</conten t> Potassium 3.5-5.3 <content Saint [Moles/volume] styleCode="David Shemar in Serum or d">Potassium Medical Plasma </content>4.4 Center MEQ/L<content styleCode="Iman lics"> (3.5-5.3 MEQ/L)</conten t> Chloride 98-107 <content Saint [Moles/volume] styleCode="David Lopezs in Serum or d">Chloride Medical Plasma </content>106 Center MEQ/L<content styleCode="Iman lics"> (98-107 MEQ/L)</conten t> Glucose 74-106 <content Saint [Mass/volume] styleCode="David Lopezs in Serum or d">Glucose Medical Plasma </content>95 Center MG/DL<content styleCode="Iman lics"> (74-106 MG/DL)</conten t> Creatinine 0.5-1.3 Above high normal <content Saint [Mass/volume] styleCode="David Shemar in Serum or d">Creatinine Medical Plasma </content>1.4 Center MG/DL H<content styleCode="Iman lics"> (0.5-1.3 MG/DL)</conten t> UNK > 60 Below low normal <content Saint styleCode="David Lopezs d">EGFR Medical </content>49 Center GFR L<content styleCode="Iman lics"> (> 60 GFR)</content> UNK 7-17 Above high normal <content Saint styleCode="David Shemar d">BUN Medical </content>21 Center MG/DL H<content styleCode="Iman lics"> (7-17 MG/DL)</conten t> Calcium 8.4-10.2 <content Saint [Mass/volume] styleCode="David Shemar in Serum or d">Calcium Medical Plasma </content>8.6 Center MG/DL<content styleCode="Iman lics"> (8.4-10.2 MG/DL)</conten t> ID Date Data Source [id number] 10/09/2019 12:00:00 AM EDT [facility] Name Value Range Interpretation Code Description Data Nyla rce(s) Supporting Document(s ) SARS-CoV2 [facility] This lab was ordered by [facility] and reported by [facility] Department of Laboratories and Research. ID Date Data Source Urinalysis.[id number] 03/28/2019 05:36:00 PM EST Arun nt [facility] 0 Name Value Range Interpretation Description Data Sup porting Code Source(s) Document(s ) Color of Urine YELLOW <content Saint styleCode="David Shemar d">Color, Medical Urine Center </content>YELL OW <content styleCode="Iman lics"> (YELLOW )</content> UNK NEGATIVE <content Saint styleCode="David Shemar d">Urine Medical Bilirubin Center </content>NEGA TIVE <content styleCode="Iman lics"> (NEGATIVE )</content> UNK CLEAR <content Saint styleCode="David Shemar d">Urine Medical Clarity Center </content>GRETA R <content styleCode="Iman lics"> (CLEAR )</content> Glucose NEGATIVE <content Saint [Mass/volume] styleCode="David Shemar in Urine by d">Urine Medical Test strip Glucose Center </content>>=10 00 MG/DL<content styleCode="Iman lics"> (NEGATIVE MG/DL)</conten t> Ketones NEGATIVE <content Saint [Mass/volume] styleCode="David Shemar in Urine by d">Urine Medical Test strip Ketone Center </content>NEGA TIVE MG/DL<content styleCode="Iman lics"> (NEGATIVE MG/DL)</conten t> Specific 1.015-1.02 Below low normal <content Saint gravity of 5 styleCode="David Shemar Urine by Test d">Urine Medical strip Specific Center [place] </content><= 1.005 L<content styleCode="Iman lics"> (1.015-1.025 )</content> pH of Urine by 4.5-8.0 <content Saint Test strip styleCode="David Shemar d">Urine pH Medical </content>6.0 Center <content styleCode="Iman lics"> (4.5-8.0 )</content> Hemoglobin NEGATIVE <content Saint [Presence] in styleCode="David Shemar Urine by Test d">Urine Blood Medical strip </content>NEGA Center TIVE <content styleCode="Iman lics"> (NEGATIVE )</content> Protein NEGATIVE <content [facility] [Mass/volume] styleCode="David Shemar in Urine by d">Urine Medical Test strip Protein Center </content>30 MG/DL<content styleCode="Iman lics"> (NEGATIVE MG/DL)</conten t> Urobilinogen 0.2-1.0 <content [facility] [Units/volume] styleCode="David Shemar in Urine by d">Urine Medical Test strip Urobilinogen Center </content>0.2 MG/DL<content styleCode="Iman lics"> (0.2-1.0 MG/DL)</conten t> Nitrite NEGATIVE <content [facility] [Presence] in styleCode="David Shemar Urine by Test d">Urine Medical strip Nitrite Center </content>NEGA TIVE <content styleCode="Iman lics"> (NEGATIVE )</content> Leukocyte NEGATIVE <content [facility] esterase styleCode="David Shemar [Presence] in d">Urine Medical Urine by Test Leukocyte Center strip </content>NEGA TIVE <content styleCode="Iman lics"> (NEGATIVE )</content> UNK 0-3 <content [facility] styleCode="David Shemar d">Urine Red Medical Blood Cell Center </content>0-3 HPF<content styleCode="Iman lics"> (0-3 HPF)</content> UNK 0-3 <content [facility] styleCode="David Shemar d">Urine White Medical Blood Cell Center </content>3-5 HPF<content styleCode="Iman lics"> (0-3 HPF)</content> UNK NONE SEEN <content [facility] styleCode="David Shemar d">Epithelial Medical Cell Center </content>20-2 5 HPF<content styleCode="Iman lics"> (NONE SEEN HPF)</content> UNK NEGATIVE <content [facility] styleCode="David Shemar d">Urine Medical Bacteria Center </content>FEW HPF<content styleCode="Iman lics"> (NEGATIVE HPF)</content> ID Date Data Source HematologyRou.[id number] 03/28/2019 05:36:00 PM EST [facility] 0500 Name Value Range Interpretation Description Data Sup porting Code Source(s) Document(s ) Erythrocytes 4.0-5.1 <content [facility] [#/volume] in styleCode="Bold Shemar Blood by ">Red Blood Medical Automated count Cell Count Center </content>4.46 MCUMM<content styleCode="Ital ics"> (4.0-5.1 MCUMM)</content > Leukocytes 4.4-11.0 <content [facility] [#/volume] in styleCode="Bold Shemar Blood by ">White Blood Medical Automated count Cell Count Center </content>6.01 KCUMM<content styleCode="Ital ics"> (4.4-11.0 KCUMM)</content > Hematocrit 36.0-46. <content [facility] [Volume 0 styleCode="Bold Shemar Fraction] of ">Hematocrit Medical Blood by </content>38.3 Center Automated count %<content styleCode="Ital ics"> (36.0-46.0 %)</content> Erythrocyte mean 32.0-37. <content [facility] corpuscular 0 styleCode="Bold Shemar hemoglobin ">Mean Corpus. Medical concentration Hgb Center [Mass/volume] by Concentration Automated count (MCHC) </content>33.7 G/DL<content styleCode="Ital ics"> (32.0-37.0 G/DL)</content> Erythrocyte mean 26.0-34. <content [facility] corpuscular 0 styleCode="Bold Shemar hemoglobin ">Mean Medical [Entitic mass] Corposcular Center by Automated Hemoglobin count </content>28.9 PG<content styleCode="Ital ics"> (26.0-34.0 PG)</content> Hemoglobin 12.3-16. <content [facility] [Mass/volume] in 0 styleCode="Bold Shemar Blood ">Hemoglobin Medical </content>12.9 Center G/DL<content styleCode="Ital ics"> (12.3-16.0 G/DL)</content> Erythrocyte mean 80.0-100 <content [facility] corpuscular .0 styleCode="Bold Shemar volume [Entitic ">Mean Medical volume] by Corpuscular Center Automated count Volume </content>85.9 FL<content styleCode="Ital ics"> (80.0-100.0 FL)</content> Platelets 130-400 <content [facility] [#/volume] in styleCode="Bold Shemar Blood by ">Platelet Medical Automated count Count Center </content>220 KCUMM<content styleCode="Ital ics"> (130-400 KCUMM)</content > UNK 0 <content [facility] styleCode="Bold Shemar ">Nucleated Red Medical Blood Cell Center </content>0.0 /100<content styleCode="Ital ics"> (0 /100)</content> Platelet mean 8.0-11.0 <content [facility] volume [Entitic styleCode="Bold Shemar volume] in Blood ">Mean Platelet Medical by Automated Volume Center count </content>10.5 FL<content styleCode="Ital ics"> (8.0-11.0 FL)</content> UNK 0.0 <content [facility] styleCode="Bold Shemar ">Nucleated Red Medical Blood Cell Center Count </content>0.00 KCUMM<content styleCode="Ital ics"> (0.0 KCUMM)</content > Erythrocyte 11.5-14. <content [facility] distribution 5 styleCode="Bold Shemar width [Ratio] by ">Red Cell Medical Automated count Distribution Center Width </content>12.7 %<content styleCode="Ital ics"> (11.5-14.5 %)</content> ID Date Data Source GFR(Creatinine).[id number] 03/28/2019 05:36:00 PM [facility] 0-0500 Name Value Range Interpretation Code Description Data Nyla rce(s) Supporting Document(s ) UNK > 60 Below low normal <content [facility] styleCode="Bold"> Medical Cent er EGFR </content>37 GFR L<content styleCode="Italic s"> (> 60 GFR)</content> ID Date Data Source CHMROUTINECCDA.[id number] 03/28/2019 05:36:00 PM [facility] -0500 Name Value Range Interpretation Code Description Data Nyla rce(s) Supporting Document(s ) UNK NEGATIVE <content [facility] styleCode="Bold" Medical Cente r >Acetone </content>NEGATI VE <content styleCode="Itali cs"> (NEGATIVE )</content> ID Date Data Source CardiacMarkers.[id number] 03/28/2019 05:36:00 PM [facility] -0500 Name Value Range Interpretation Description Data Sup porting Code Source(s) Document(s ) Troponin < 0.034 <content [facility] I.cardiac styleCode="Bold Shemar [Mass/volume ">Troponin I Medical ] in Serum </content>< Center or Plasma 0.012 NG/ML<content styleCode="Ital ics"> (< 0.034 NG/ML)</content > ID Date Data Source BMP.[id number] 03/28/2019 05:36:00 PM [facility] Name Value Range Interpretation Description Data Sup porting Code Source(s) Document(s ) Carbon 22-30 <content [facility] dioxide, total styleCode="David Shemar [Moles/volume] d">Carbon Medical in Serum or Dioxide Center Plasma </content>25 MEQ/L<content styleCode="Iman lics"> (22-30 MEQ/L)</conten t> Sodium 137-145 <content [facility] [Moles/volume] styleCode="David Shemar in Serum or d">Sodium Medical Plasma </content>142 Center MEQ/L<content styleCode="Iman lics"> (137-145 MEQ/L)</conten t> Chloride 98-107 <content [facility] [Moles/volume] styleCode="David Shemar in Serum or d">Chloride Medical Plasma </content>104 Center MEQ/L<content styleCode="Iman lics"> (98-107 MEQ/L)</conten t> Potassium 3.5-5.3 <content [facility] [Moles/volume] styleCode="David Shemar in Serum or d">Potassium Medical Plasma </content>3.9 Center MEQ/L<content styleCode="Iman lics"> (3.5-5.3 MEQ/L)</conten t> UNK > 60 Below low normal <content [facility] styleCode="David Shemar d">EGFR Medical </content>37 Center GFR L<content styleCode="Iman lics"> (> 60 GFR)</content> UNK 7-17 Above high normal <content [facility] styleCode="David Lopezs d">BUN Medical </content>21 Center MG/DL H<content styleCode="Iman lics"> (7-17 MG/DL)</conten t> Glucose 74-106 Above high normal <content [facility] [Mass/volume] styleCode="David Lopezs in Serum or d">Glucose Medical Plasma </content>167 Center MG/DL H<content styleCode="Iman lics"> (74-106 MG/DL)</conten t> Creatinine 0.5-1.3 Above high normal <content [facility] [Mass/volume] styleCode="David Shemar in Serum or d">Creatinine Medical Plasma </content>1.5 Center MG/DL H<content styleCode="Iman lics"> (0.5-1.3 MG/DL)</conten t> Calcium 8.4-10.2 <content [facility] [Mass/volume] styleCode="David Shemar in Serum or d">Calcium Medical Plasma </content>10.1 Center MG/DL<content styleCode="Iman lics"> (8.4-10.2 MG/DL)</conten t> ID Date Data Source Liver 03/02/2019 07:34:00 PM EST [facility] Profile.[id number] Name Value Range Interpretation Description Data Sup porting Code Source(s) Document(s ) Alanine 7-30 <content [facility] aminotransferase styleCode="Bold"> Noel hs [Enzymatic Alanine Medical activity/volume] Aminotransferase Center in Serum or Plasma (ALT) </content>23 IU/L<content styleCode="Italic s"> (7-30 IU/L)</content> Aspartate 14-36 <content [facility] aminotransferase styleCode="Bold"> Noel hs [Enzymatic Aspartate Medical activity/volume] Aminotransferase Center in Serum or Plasma (AST) </content>32 IU/L<content styleCode="Italic s"> (14-36 IU/L)</content> Alkaline 38-126 <content [facility] phosphatase styleCode="Bold"> Shemar [Enzymatic Alkaline Medical activity/volume] Phosphatase (ALP) Cente r in Serum or Plasma </content>98 IU/L<content styleCode="Italic s"> (38-126 IU/L)</content> UNK 0.0-0.3 <content [facility] styleCode="Bold"> Shemar Bilirubin, Direct Medical </content>< 0.2 Center MG/DL<content styleCode="Italic s"> (0.0-0.3 MG/DL)</content> Bilirubin.total 0.2-1.3 <content [facility] [Mass/volume] in styleCode="Bold"> Noel hs Serum or Plasma Bilirubin Total Medical </content>0.3 Center MG/DL<content styleCode="Italic s"> (0.2-1.3 MG/DL)</content> Albumin 3.5-5.0 <content [facility] [Mass/volume] in styleCode="Bold"> Noel hs Serum or Plasma Albumin Medical </content>4.3 Center G/DL<content styleCode="Italic s"> (3.5-5.0 G/DL)</content> ID Date Data Source HematologyRou.[id number] 03/02/2019 07:34:00 PM [facility] 0500 Name Value Range Interpretation Description Data Sup porting Code Source(s) Document(s ) Erythrocytes 4.0-5.1 <content [facility] [#/volume] in styleCode="Bold Shemar Blood by ">Red Blood Medical Automated count Cell Count Center </content>4.24 MCUMM<content styleCode="Ital ics"> (4.0-5.1 MCUMM)</content > Leukocytes 4.4-11.0 Above high <content [facility] [#/volume] in normal styleCode="Bold Shemar Blood by ">White Blood Medical Automated count Cell Count Center </content>16.67 KCUMM H<content styleCode="Ital ics"> (4.4-11.0 KCUMM)</content > Hematocrit 36.0-46. <content [facility] [Volume 0 styleCode="Bold Shemar Fraction] of ">Hematocrit Medical Blood by </content>37.3 Center Automated count %<content styleCode="Ital ics"> (36.0-46.0 %)</content> Erythrocyte mean 80.0-100 <content [facility] corpuscular .0 styleCode="Bold Shemar volume [Entitic ">Mean Medical volume] by Corpuscular Center Automated count Volume </content>88.0 FL<content styleCode="Ital ics"> (80.0-100.0 FL)</content> Erythrocyte mean 26.0-34. <content [facility] corpuscular 0 styleCode="Bold Shemar hemoglobin ">Mean Medical [Entitic mass] Corposcular Center by Automated Hemoglobin count </content>29.2 PG<content styleCode="Ital ics"> (26.0-34.0 PG)</content> Hemoglobin 12.3-16. <content [facility] [Mass/volume] in 0 styleCode="Bold Shemar Blood ">Hemoglobin Medical </content>12.4 Center G/DL<content styleCode="Ital ics"> (12.3-16.0 G/DL)</content> UNK 0 <content [facility] styleCode="Bold Shemar ">Nucleated Red Medical Blood Cell Center </content>0.0 /100<content styleCode="Ital ics"> (0 /100)</content> Erythrocyte 11.5-14. <content [facility] distribution 5 styleCode="Bold Shemar width [Ratio] by ">Red Cell Medical Automated count Distribution Center Width </content>12.7 %<content styleCode="Ital ics"> (11.5-14.5 %)</content> Platelets 130-400 <content [facility] [#/volume] in styleCode="Bold Shemar Blood by ">Platelet Medical Automated count Count Center </content>227 KCUMM<content styleCode="Ital ics"> (130-400 KCUMM)</content > Erythrocyte mean 32.0-37. <content [facility] corpuscular 0 styleCode="Bold Shemar hemoglobin ">Mean Corpus. Medical concentration Hgb Center [Mass/volume] by Concentration Automated count (MCHC) </content>33.2 G/DL<content styleCode="Ital ics"> (32.0-37.0 G/DL)</content> Platelet mean 8.0-11.0 <content [facility] volume [Entitic styleCode="Bold Shemar volume] in Blood ">Mean Platelet Medical by Automated Volume Center count </content>10.7 FL<content styleCode="Ital ics"> (8.0-11.0 FL)</content> UNK 0.0 <content Saint styleCode="Bold Shemar ">Nucleated Red Medical Blood Cell Center Count </content>0.00 KCUMM<content styleCode="Ital ics"> (0.0 KCUMM)</content > ID Date Data Source GFR(Creatinine).[id number] 03/02/2019 07:34:00 PM EST [facility] 0-0500 Name Value Range Interpretation Code Description Data Nyla rce(s) Supporting Document(s ) UNK > 60 Below low normal <content [facility] She[facility] styleCode="Bold"> Medical Cent er EGFR </content>53 GFR L<content styleCode="Italic s"> (> 60 GFR)</content> ID Date Data Source Coagulation 03/02/2019 07:34:00 PM [facility] ical Center Rout.[id number] EST Name Value Range Interpretation Description Data Sup porting Code Source(s) Document(s ) INR in 0.80-1.2 <content [facility] Platelet poor 0 styleCode="Bold" Shemar plasma by >INR Medical Coagulation </content>1.03 Center assay #<content styleCode="Itali cs"> (0.80-1.20 #)</content> UNK 9.0-13.0 <content Saint styleCode="Bold" Shemar >Protime Medical </content>11.4 Center SEC<content styleCode="Itali cs"> (9.0-13.0 SEC)</content> aPTT in 25.1-36. <content [facility] Platelet poor 5 styleCode="Bold" Shemar plasma by >Partial Medical Coagulation Thromboplastin Center assay Time </content>27.9 SEC<content styleCode="Itali cs"> (25.1-36.5 SEC)</content> ID Date Data Source CardiacMarkers.[id number] 03/02/2019 07:34:00 PM EST [facility] -0500 Name Value Range Interpretation Description Data Sup porting Code Source(s) Document(s ) Troponin < 0.034 <content [facility] I.cardiac styleCode="Bold Shemar [Mass/volume ">Troponin I Medical ] in Serum </content>0.016 Center or Plasma NG/ML<content styleCode="Ital ics"> (< 0.034 NG/ML)</content > Creatine 30-135 <content [facility] kinase styleCode="Bold Shemar [Enzymatic ">CK Medical activity/vol </content>51 Center ume] in IU/L<content Serum or styleCode="Ital Plasma ics"> (30-135 IU/L)</content> ID Date Data Source BMP.[id number] 03/02/2019 07:34:00 PM EST [facility] Name Value Range Interpretation Description Data Sup porting Code Source(s) Document(s ) Sodium 137-145 <content [facility] [Moles/volume] in styleCode="Bold"> [facility] Serum or Plasma Sodium Medical </content>143 Center MEQ/L<content styleCode="Italic s"> (137-145 MEQ/L)</content> Carbon dioxide, 22-30 Below low <content [facility] total normal styleCode="Bold"> Shemar [Moles/volume] in Carbon Dioxide Medical Serum or Plasma </content>21 Center MEQ/L L<content styleCode="Italic s"> (22-30 MEQ/L)</content> UNK 7-17 Above high <content [facility] normal styleCode="Bold"> Shemar BUN </content>23 Medical MG/DL H<content Center styleCode="Italic s"> (7-17 MG/DL)</content> Creatinine 0.5-1.3 <content [facility] [Mass/volume] in styleCode="Bold"> Noel hs Serum or Plasma Creatinine Medical </content>1.3 Center MG/DL<content styleCode="Italic s"> (0.5-1.3 MG/DL)</content> Potassium 3.5-5.3 <content [facility] [Moles/volume] in styleCode="Bold"> [facility] Serum or Plasma Potassium Medical </content>3.7 Center MEQ/L<content styleCode="Italic s"> (3.5-5.3 MEQ/L)</content> Chloride 98-107 Above high <content [facility] [Moles/volume] in normal styleCode="Bold"> [facility] Serum or Plasma Chloride Medical </content>110 Center MEQ/L H<content styleCode="Italic s"> (98-107 MEQ/L)</content> Alanine 7-30 <content [facility] aminotransferase styleCode="Bold"> Noel hs [Enzymatic Alanine Medical activity/volume] Aminotransferase Center in Serum or Plasma (ALT) </content>23 IU/L<content styleCode="Italic s"> (7-30 IU/L)</content> Calcium 8.4-10. <content [facility] [Mass/volume] in 2 styleCode="Bold"> Noel hs Serum or Plasma Calcium Medical </content>9.8 Center MG/DL<content styleCode="Italic s"> (8.4-10.2 MG/DL)</content> UNK > 60 Below low <content Saint normal styleCode="Bold"> [facility] EGFR </content>53 Medical GFR L<content Center styleCode="Italic s"> (> 60 GFR)</content> Aspartate 14-36 <content [facility] aminotransferase styleCode="Bold"> Noel hs [Enzymatic Aspartate Medical activity/volume] Aminotransferase Center in Serum or Plasma (AST) </content>32 IU/L<content styleCode="Italic s"> (14-36 IU/L)</content> Glucose 74-106 Above high <content [facility] [Mass/volume] in normal styleCode="Bold"> Noel hs Serum or Plasma Glucose Medical </content>175 Center MG/DL H<content styleCode="Italic s"> (74-106 MG/DL)</content> Alkaline 38-126 <content [facility] phosphatase styleCode="Bold"> [facility] [Enzymatic Alkaline Medical activity/volume] Phosphatase (ALP) Cente r in Serum or Plasma </content>98 IU/L<content styleCode="Italic s"> (38-126 IU/L)</content> Albumin 3.5-5.0 <content [facility] [Mass/volume] in styleCode="Bold"> Noel hs Serum or Plasma Albumin Medical </content>4.3 Center G/DL<content styleCode="Italic s"> (3.5-5.0 G/DL)</content> Bilirubin.total 0.2-1.3 <content [facility] [Mass/volume] in styleCode="Bold"> Noel hs Serum or Plasma Bilirubin Total Medical </content>0.3 Center MG/DL<content styleCode="Italic s"> (0.2-1.3 MG/DL)</content> ID Date Data Source HematologyRou.[id number] 10/11/2018 05:03:00 PM EDT [facility] 0400 Name Value Range Interpretation Description Data Sup porting Code Source(s) Document(s ) Erythrocytes 4.0-5.1 Below low normal <content [facility] [#/volume] in styleCode="Bold Shemar Blood by ">Red Blood Medical Automated count Cell Count Center </content>3.84 MCUMM L<content styleCode="Ital ics"> (4.0-5.1 MCUMM)</content > Leukocytes 4.4-11.0 <content [facility] [#/volume] in styleCode="Bold Shemar Blood by ">White Blood Medical Automated count Cell Count Center </content>10.93 KCUMM<content styleCode="Ital ics"> (4.4-11.0 KCUMM)</content > Hemoglobin 12.3-16. Below low normal <content [facility] [Mass/volume] in 0 styleCode="Bold Shemar Blood ">Hemoglobin Medical </content>11.2 Center G/DL L<content styleCode="Ital ics"> (12.3-16.0 G/DL)</content> Erythrocyte mean 80.0-100 <content [facility] corpuscular .0 styleCode="Bold Shemar volume [Entitic ">Mean Medical volume] by Corpuscular Center Automated count Volume </content>85.9 FL<content styleCode="Ital ics"> (80.0-100.0 FL)</content> Erythrocyte mean 26.0-34. <content [facility] corpuscular 0 styleCode="Bold Shemar hemoglobin ">Mean Medical [Entitic mass] Corposcular Center by Automated Hemoglobin count </content>29.2 PG<content styleCode="Ital ics"> (26.0-34.0 PG)</content> Hematocrit 36.0-46. Below low normal <content [facility] [Volume 0 styleCode="Bold Shemar Fraction] of ">Hematocrit Medical Blood by </content>33.0 Center Automated count % L<content styleCode="Ital ics"> (36.0-46.0 %)</content> Platelets 130-400 <content Saint [#/volume] in styleCode="Bold Shemar Blood by ">Platelet Medical Automated count Count Center </content>199 KCUMM<content styleCode="Ital ics"> (130-400 KCUMM)</content > Erythrocyte 11.5-14. <content [facility] distribution 5 styleCode="Bold Shemar width [Ratio] by ">Red Cell Medical Automated count Distribution Center Width </content>12.4 %<content styleCode="Ital ics"> (11.5-14.5 %)</content> Erythrocyte mean 32.0-37. <content [facility] corpuscular 0 styleCode="Bold Shemar hemoglobin ">Mean Corpus. Medical concentration Hgb Center [Mass/volume] by Concentration Automated count (MCHC) </content>33.9 G/DL<content styleCode="Ital ics"> (32.0-37.0 G/DL)</content> UNK 0.0 <content Saint styleCode="Bold Shemar ">Nucleated Red Medical Blood Cell Center Count </content>0.00 KCUMM<content styleCode="Ital ics"> (0.0 KCUMM)</content > UNK 0 <content Saint styleCode="Bold Shemar ">Nucleated Red Medical Blood Cell Center </content>0.0 /100<content styleCode="Ital ics"> (0 /100)</content> Platelet mean 8.0-11.0 <content [facility] volume [Entitic styleCode="Bold Shemar volume] in Blood ">Mean Platelet Medical by Automated Volume Center count </content>10.5 FL<content styleCode="Ital ics"> (8.0-11.0 FL)</content> ID Date Data Source GFR(Creatinine).[id number] 10/11/2018 05:03:00 PM EDT [facility] 0-0400 Name Value Range Interpretation Code Description Data Nyla rce(s) Supporting Document(s ) UNK > 60 Below low normal <content [facility] styleCode="Bold"> Medical Cent er EGFR </content>34 GFR L<content styleCode="Italic s"> (> 60 GFR)</content> ID Date Data Source BMP.[id number] 10/11/2018 05:03:00 PM EDT [facility] Name Value Range Interpretation Description Data Sup porting Code Source(s) Document(s ) Sodium 137-145 <content [facility] [Moles/volume] styleCode="David Lopezs in Serum or d">Sodium Medical Plasma </content>139 Center MEQ/L<content styleCode="Iman lics"> (137-145 MEQ/L)</conten t> Chloride 98-107 <content [facility] [Moles/volume] styleCode="David Shemar in Serum or d">Chloride Medical Plasma </content>98 Center MEQ/L<content styleCode="Iman lics"> (98-107 MEQ/L)</conten t> Carbon 22-30 <content [facility] dioxide, total styleCode="David Shemar [Moles/volume] d">Carbon Medical in Serum or Dioxide Center Plasma </content>24 MEQ/L<content styleCode="Iman lics"> (22-30 MEQ/L)</conten t> Potassium 3.5-5.3 <content [facility] [Moles/volume] styleCode="David Shemar in Serum or d">Potassium Medical Plasma </content>4.6 Center MEQ/L<content styleCode="Iman lics"> (3.5-5.3 MEQ/L)</conten t> Creatinine 0.5-1.3 Above high normal <content [facility] [Mass/volume] styleCode="David Shemar in Serum or d">Creatinine Medical Plasma </content>1.9 Center MG/DL H<content styleCode="Iman lics"> (0.5-1.3 MG/DL)</conten t> UNK 7-17 Above high normal <content [facility] styleCode="David Shemar d">BUN Medical </content>21 Center MG/DL H<content styleCode="Iamn lics"> (7-17 MG/DL)</conten t> Glucose 74-106 Above high normal <content [facility] [Mass/volume] styleCode="David Shemar in Serum or d">Glucose Medical Plasma </content>228 Center MG/DL H<content styleCode="Iman lics"> (74-106 MG/DL)</conten t> Calcium 8.4-10.2 <content [facility] [Mass/volume] styleCode="David Shemar in Serum or d">Calcium Medical Plasma </content>10.2 Center MG/DL<content styleCode="Iman lics"> (8.4-10.2 MG/DL)</conten t> UNK > 60 Below low normal <content [facility] styleCode="David Shemar d">EGFR Medical </content>34 Center GFR L<content styleCode="Iman lics"> (> 60 GFR)</content> ID Date Data Source [id number] 09/18/2018 01:35:00 PM EDT [facility] ([facility]) Name Value Range Interpretation Description Data Sup porting Code Source(s) Document(s ) GFR for 43mL/min/ 60- Below low normal <td [facility] Females 1.73m E2 ID="Observation ([facility] -Test-2079m7e8- Extended 0yrq-6v69-60d0[facility]) [id number]">( [id number]) GFR for Females</td><td ID="Observation -Value-6281c1z6 -8plf-0m18-41g9 -7197d12wg0w1"> 43</td><td ID="Observation -Unit-4877c6e4- 5zki-2v04-36i1- 3881l87ci8q4">m L/min/1.73m E2</td><td ID="Observation -RefRange-8353c 3c3-2mqq-8m49-1 5t7-6866b73ue5g 8">60-</td><td ID="Observation -Abnormal-8353c 8a0-4xhy-5p62-9 0t3-3161k19ka2v 8">L</td><td ID="Observation -Status-4277p7v 4-8tph-8f90-96f 8-1243a11nw3f1" >Final</td> GFR for 52mL/min/1.73m 60- Below <td ID="Dgkqevsheyc-Rgpv-1mt7suq98hs5smp8-9v2r-53j5-y6p2-86h8u3r21842">([id number]) GFR [facility] Females E2 low for Females () </td><td ([facility] ( normal ID="Yhizseoesuw-Kvmpc-7tk5awj97qr4jhw2-9m1d-24b2-p7n1-23a0v1u48104">52</td><td Extended Citizen Of [place]) ID="Mblcwuorlkd-Ulcn-[id number]-83j2-h3x5-07r8b0s25019">mL/min/1.73m Care E2</td><td Center) ID="Zkreufhfpsp-PpjFrgwy-4az1s fi0-1o7b-73e56m5o-27y0-v5v5-76g1i8l41123">60-</td><td ID="Tbobysszzcr-Ymkzgqcf-6fq3g qw9-6t8i-37s44x7p-51t9-q2l5-20a2e7a62534">L</td><td ID="Mwmkhgifhqq-Dussht-5ce3puu 9-6f2l-37i71e3o-46k4-[id number]">Final</td> ID Date Data Source [id number] 09/18/2018 01:35:00 PM EDT [facility] ([facility]) Name Value Range Interpretation Description Data Sup porting Code Source(s) Document(s ) WBC 5.8K/mcL 4.0-11 <td [facility] ID="[facility] Extended 6f4-jco6-916t Care -a079-ec6wt8a Center) 3f43f">(815) WBC</td><td ID="Observati cy-Drgfd-352a d0f5-ehf9-149 u-y604-ca2ev7 a3f43f">5.8</ td><td ID="Observati qu-Aelz-194fk 5f8-prc6-833j -r059-cx1ro9u 3f43f">K/mcL< /td><td ID="Observati jj-VwhAdnjh-1 66pu2c0-ezp0- 305d-n356-op8 xx8y1b24n">4. 0-11</td><td ID="Observati ei-[place]opea-5 13im7y9-cua5- 079x-f994-ez6 im4j6h83f"></ td><td ID="Observati pe-Lipvqu-682 kv6d5-fjr3-06 0s-k195-tz3pf 3i1l79n">Lexi l</td> RBC 4.51mil/ 4.2-5.4 <td [facility] mcL ID="Observati ([facility] my-Zzqt-5a2sx Extended 440-wr0h-63ip Care -[id number] [place]) 5f7e5">(816) RBC</td><td ID="Observati ml-Yeakj-1t2n u064-no0p-91z q-l529-2j9744 85f7e5">4.51< /td><td ID="Observati gr-Qkwy-3x9qu 270-vt5x-39mw -m674-1l71587 5f7e5">mil/mc L</td><td ID="Observati dn-FkvScnyv-9 n7vp516-kf3k- 01my-n228-9v7 32852b3t7">4. 2-5.4</td><td ID="Observati xp-Zgbmpalh-4 o3st208-al3a- 68gy-k240-7x9 62714g3w4"></ td><td ID="Observati tm-Ilndsh-9f9 fw214-qd7e-71 nj-h902-4c746 576c2l5">Lexi l</td> HGB 13.3g/dL 12-16 <td [facility] ID="Observati ([facility] zw-Hyno-qs163 Extended 1b4-17oz-8m10 Care -ul99-u203122 [place]) 59ebd">(817) HGB</td><td ID="Observati oi-Wzvzw-cf24 05g6-82pk-8d3 0-la68-a31625 059ebd">13.3< /td><td ID="Observati vq-Hpsj-dz390 8f6-07ns-1m65 -gt27-u235867 59ebd">g/dL</ td><td ID="Observati pz-BjoOtjqq-j m5327q2-92tg- 5r30-rw41-y94 996226usk">12 -16</td><td ID="Observati kn-Zddakmaj-f m0691p2-52zs- 2p75-cs99-r03 628776jcl"></ td><td ID="Observati og-Gwiady-bt0 061h9-51tw-3h 24-mb30-n4865 8059ebd">Lexi l</td> HCT 41.7% 35-49 <td [facility] ID="Observati ([facility] kw-Wrbr-d6zm0 Extended 9ei-4yc3-04y9 Care -8aw3-vtut966 [facility]) e2cd8">(818) HCT</td><td ID="Observati py-Jmhko-c4of 74gi-8iu2-60i 8-8ws4-wzfq69 7e2cd8">41.7< /td><td ID="Observati pz-Acdl-o6ts5 4xg-0mv0-88m4 -0ho7-qaij097 e2cd8">%</td> <td ID="Observati fx-EgbIrrmo-e 3fd89lh-3qr3- 49s3-1ky5-hla e013n2wk3">35 -49</td><td ID="Observati dv-Xryuluet-e 7ld41nw-7zc3- 64v9-5if6-dnx u628s8bm9"></ td><td ID="Observati he-Rfjrom-w4m d73yp-2nw9-23 i2-5at1-pdgd9 64h5kr6">Lexi l</td> MCV 92.4fl 80-94 <td [facility] ID="Observati ([facility] xx-Mlzo-2q2t2 Extended 07k-f998-9kly Care -aeb1-458hd78 [facility]) 77f0d">(819) MCV</td><td ID="Observati gy-Ryapv-9d2a 349x-h522-8jl f-adj9-532tt8 477f0d">92.4< /td><td ID="Observati dm-Rhjg-1k8s2 69b-z100-0uwk -aeb1-308kh39 77f0d">fl</td ><td ID="Observati rs-GrcIpwer-1 u9j904r-b702- 0dav-cwt3-385 sx0094l0k">80 -94</td><td ID="Observati nh-Wljqyfrd-4 x8f346e-v319- 2ygg-ncc7-338 rp0662b9b"></ td><td ID="Observati yp-Jxxzhd-2w3 t564a-x858-2e is-zoa2-386ux 3344i7h">Lexi l</td> MCH 29.5pg 27-32 <td [facility] ID="Observati ([facility] es-Lvos-0r6gu Extended 8s8-9l40-54zw Care -p237-8544s13 [place]) 5f965">(820) MCH</td><td ID="Observati qh-Lygaf-1j0d y0d8-3g22-06m b-l500-7419y5 21d966">29.5< /td><td ID="Observati ar-Rjns-2k4aq 1c9-3c30-81lq -j576-5856v60 5f965">pg</td ><td ID="Observati dt-NzoWiiyr-9 u6ix5m6-2k60- 05yv-r135-055 3f283j698">27 -32</td><td ID="Observati da-Kswnibtn-7 u5pf1e8-2m02- 44qu-d245-038 5l671c082"></ td><td ID="Observati vs-Rcfaip-8e5 fi5k4-3x79-33 cj-d666-3428m 088r386">Lexi l</td> MCHC 31.9g/dL 33-37 Below low normal <td [facility] ID="Observati ([facility] qc-Vecs-o8970 Extended 9mh-q4yl-8h0r Care -96b3-330bw37 [place]) 99872">(822) MCHC</td><td ID="Observati rl-Bxwrv-j021 73hn-p9tq-2r0 w-30x5-960rd7 893963">31.9< /td><td ID="Observati zi-Xipt-d9031 2wj-q8jn-6a4c -85v2-820nr56 43797">g/dL</ td><td ID="Observati qm-BhfComch-l 44689ux-e8hw- 1u9n-21z4-675 ko2151445">33 -37</td><td ID="Observati ua-Dgglspsy-e 39462mi-z2sg- 8d7r-52j3-337 wo5189467">L< /td><td ID="Observati cb-Inztvb-s76 624tx-t3mn-5r 1r-53a5-236nt 2821093">Lexi l</td> RDW 15.9% 11.5-14. Above high normal <td [facility] 5 ID="Observati ([facility] qa-Uhzs-8302s Extended t80-746f-1b45 Care -uj3h-ixcvk72 [facility]) b5ce9">(823) RDW</td><td ID="Observati ba-Qefte-3235 kb26-941y-5a2 5-zr7t-ppaje5 0b5ce9">15.9< /td><td ID="Observati hb-Tfug-1065b s20-891y-7n05 -cp9f-gdomk87 b5ce9">%</td> <td ID="Observati ol-UxjFsqgx-9 580zw87-380s- 9n58-th2q-szm pj73o4ur4">11 .5-14.5</td>< td ID="Observati qr-Qwbjbxdk-7 409xu61-077m- 4b69-ha6l-mca zi84b2tz6">H< /td><td ID="Observati sm-Pwrbnt-853 8bn18-100y-2g 50-sy5r-pfuen 67l4ug1">Lexi l</td> PLT 189K/mcL 130-400 <td [facility] ID="Observati ([facility] ij-Pnxg-58903 Extended 496-5210-01l4 Care -9274-y793086 [place]) 6b43b">(824) PLT</td><td ID="Observati ic-Mjztu-2135 6038-6895-85n 5-3247-u71202 46b43b">189</ td><td ID="Observati ir-Uqno-40067 916-6913-95i2 -9274-f846171 6b43b">K/mcL< /td><td ID="Observati nt-UgcCtdgj-9 2946540-8545- 27g9-2381-x99 47093h96m">13 0-400</td><td ID="Observati jh-Qbvygcop-9 1889723-3340- 69e4-6982-d73 33684j18k"></ td><td ID="Observati vs-Adibwk-897 [address]6882-54 x6-8816-b8702 572n54r">Lexi l</td> Granulocytes 50.0% 39.500-9 <td [facility] 0 ID="Observati ([facility] nm-Fzuc-100c1 Extended o71-d641-4563 Care -7p47-2dw6f62 [place]) fcff7">(825) Granulocytes< /td><td ID="Observati vb-Tjxmo-823l 7h48-t791-420 9-3v82-9ma4f9 1fcff7">50.0< /td><td ID="Observati mo-Manb-979q0 g70-y982-3753 -7d73-5oc6e94 fcff7">%</td> <td ID="Observati pj-EjxUfjtn-4 04y8x15-c686- 4891-8n04-5nn 8e29irur3">39 .500-90</td>< td ID="Observati pb-Iilxqzie-6 00a2r81-f249- 2472-5s79-0yq 9z91ulhf5"></ td><td ID="Observati te-Owiunf-295 n3r99-z147-01 69-9a87-8zb0z 39ntbi8">Lexi l</td> Lymphocytes 43.6% 18.500-7 <td [facility] 0 ID="Observati ([facility] wa-Hqmv-793r0 Extended 686-br3g-7154 Care -d907-t71n892 [place]) 02c21">(826) Lymphocytes</ td><td ID="Observati zz-Msxwv-840t 0842-bc4a-243 8-g854-s94x91 402c21">43.6< /td><td ID="Observati tx-Vzyk-577s7 852-zs4y-1863 -q388-d48b642 02c21">%</td> <td ID="Observati jc-KlkUrilg-2 77b8400-jd4u- 1381-g397-r36 y57578a40">18 .500-70</td>< td ID="Observati hy-Ckprimbu-9 35x3677-uv2c- 1561-f391-g08 a32193w19"></ td><td ID="Observati xw-Usafoc-058 w7075-cp1m-18 04-k491-i63e9 5572o34">Lexi l</td> Monocytes 3.7% 2.500-15 <td [facility] ID="Observati ([facility] hm-Veyp-416o0 Extended 065-9250-4036 Care -tk22-ezr24ki [place]) 5f221">(827) Monocytes</td ><td ID="Observati sa-Xknxw-114a 7949-8287-524 8-nu72-nbd49z u1c134">3.7</ td><td ID="Observati sh-Jhzg-112x8 198-2174-5004 -zr02-vjz83ys 5f221">%</td> <td ID="Observati gj-KazVdkwn-7 47y7252-0561- 4040-pm10-svy 05oc0a746">2. 500-15</td><t d ID="Observati uj-Cjnmdgxh-2 61y5233-9195- 5385-yu51-iwc 24ll8v680"></ td><td ID="Observati ux-Cliqqq-924 w6097-6769-34 56-qa31-hgp08 ms3o214">Lexi l</td> Eosinophils 1.9% 0.5-3.0 <td [facility] ID="Observati ([facility] xf-Xspq-7vex3 Extended n3j-87j5-8x9u Care -jw1e-v853202 [place]) c50a8">(828) Eosinophils</ td><td ID="Observati wl-Efojk-2tlt 7l0v-49s4-3q8 o-cc3u-k13816 5c50a8">1.9</ td><td ID="Observati xx-Lylb-8fya8 c7n-97k6-9y0p -ul9d-q011619 c50a8">%</td> <td ID="Observati hk-WzsUpzka-8 dpw6v2w-84u3- 3u5u-qs1n-a51 7086f05z7">0. 5-3.0</td><td ID="Observati oy-Ftelbglj-0 ecr1x2d-05u2- 0d2c-gm5m-r97 8457l98f0"></ td><td ID="Observati kt-Bpvtkp-6rf d4h8a-12m6-2n 7o-yn9e-d2796 18x08x3">Lexi l</td> Basophil 0.8% 0-2.000 <td [facility] ID="Observati ([facility] ym-Tlih-s2f79 Extended 975-804m-6w75 Care -s424-535r20a [place]) 00770">(829) Basophil</td> <td ID="Observati mn-Kimin-g0p3 8809-752o-1v4 8-q278-901h23 h28225">0.8</ td><td ID="Observati sw-Azsx-w9z45 577-891f-1q18 -d783-250e45k 10324">%</td> <td ID="Observati gz-XxiLoszh-y 8t16037-798z- 8v50-a473-343 w94v27412">0- 2.000</td><td ID="Observati uy-Owttfyly-c 3f22077-640c- 0z29-z347-613 w70o53508"></ td><td ID="Observati pg-Ojcxfd-o4h 76985-166d-4c 93-s947-587v6 7x17881">Lexi l</td> Absolute 2.9K/mcL 1.6-6.0 <td [facility] Neutrophil ID="Observati ([facility] Count tx-Nipw-9d7w8 Extended 2i5-c439-4g35 Care -982e-30k8u49 Center) b145b">(921) Absolute Neutrophil Count</td><td ID="Observati en-Udkuw-3b1o 66i7-p494-9g0 1-224u-77o7n7 9h700r">2.9</ td><td ID="Observati cy-Gehb-1l1y9 7c1-i036-7j06 -982e-62r6q79 b145b">K/mcL< /td><td ID="Observati zv-FzsVxdjo-4 f4c82g9-v952- 6n94-663a-33c 6m41k200u">1. 6-6.0</td><td ID="Observati xu-Phzlrxrz-0 g9v21c9-p632- 7l04-432k-23k 5j76e345t"></ td><td ID="Observati yr-Xlwlbh-0m0 a60x2-c865-1e 94-328p-96l2t 17t891y">Lexi l</td> ID Date Data Source 09/18/2018 01:35:00 PM EDT [facility] ([facility]) Name Value Range Interpretation Description Data Sup porting Code Source(s) Document(s ) Glycohemoglobin 10.8% 4.8-5.9 Above high normal <td [facility] ID="Observatio ([facility] f-Bwck-a11367o Extended 7-u1v3-3247k0r4-7095-77 Care 33-ko59669p743 [place]) 0">(50048) Glycohemoglobi n</td><td ID="Observatio y-Rmuti-e45314 l0-a9n0-4232-9 333-nv08643o87 60">10.8</td>< td ID="Observatio h-Ioms-m18095d 0-a3e3-4931c6g0-1857-18 33-ak42413h523 0">%</td><td ID="Observatio c-CjcGjmqn-x45 806s0-d6k3-599 1-4692-yg25846 e3660">4.8-5.9 </td><td ID="Observatio z-Rjkjjfcq-q23 833z7-z6w7-262 2-2733-zr75658 e3660">H</td>< td ID="Observatio v-Xnzzrg-q5253 7h8-c4p7-5580- 33-pa25302q2 660">Final</td > <td colspan="6"><list><item>Type: Lab, Date: 10/10/2018 05:42 PM, User: N/A</item><item>Reference Range<6% Non-Diabetic<7% Goal>8% Action Suggested</item></list></td> ID Date Data Source [id number] 09/18/2018 01:35:00 PM EDT [facility] ([facility]) Name Value Range Interpretation Description Data Sup porting Code Source(s) Document(s ) Sodium 142meq/L 136-145 <td [facility] ID="Observatio ([facility] o-Xldt-v78fkz4 Extended rf47-123s-7y [facility]) cb-lg45lh7i29e 4">(11219) Sodium</td><td ID="Observatio t-Rwqjo-a41sub 91-dj28-371e-8 ccb-yp94pk7h25 a4">142</td><t d ID="Observatio f-Qfpb-z80zql9 7-df03-730tzs74-906g-1l cb-hx61by0u57v 4">meq/L</td>< td ID="Observatio g-ZkuCthdo-w23 dbe28-tm71-207 j-3flq-yk42fy1 c11a4">136-145 </td><td ID="Observatio f-Wwrkrgnw-s77 emy22-fe47-811 v-3gmw-xq94td7 c11a4"></td><t d ID="Observatio k-Mmcczg-c29hx k57-qq25-376a- 8ccb-vq48le7s4 1a4">Final</td > Potassium 4.7meq/L 3.4-5.5 <td [facility] ID="Observatio ([facility] p-Vcfs-ozwa620 Extended 4-9220-03e7-a6 [facility]) ad-h7xa316fw0s c">(13152) Potassium</td> <td ID="Observatio n-Qbuiz-iipw97 25-6398-19w8-a 6ad-m2gh285ux9 cc">4.7</td><t d ID="Observatio o-Ivdt-goez856 9-8228-87u9-a6 ad-t2nc199wv0h c">meq/L</td>< td ID="Observatio d-GotZruut-duj n2253-2111-53i 6-c8kw-k0ye296 cc1cc">3.4-5.5 </td><td ID="Observatio b-Prgtnwcz-zoh p5238-4778-68l 2-c8aq-j7iz928 cc1cc"></td><t d ID="Observatio c-Rrbpbh-hcmx5 842-9732-49q8- f0lz-v5va792eg 1cc">Final</td > Carbon 20meq/L 22-30 Below low normal <td [facility] Dioxide ID="Observatio ([facility] b-Hkxv-ge1194f Extended 1-681q-988c-b1 [facility]) 2f-3500w1999u9 2">(05908) Carbon Dioxide</td><t d ID="Observatio a-Smwos-gc4221 a3-413q-852a-b 12f-8087i8211m 82">20</td><td ID="Observatio g-Mdbe-sk6549m 4-267w-151f-b1 2f-4231t3923j3 2">meq/L</td>< td ID="Observatio k-UykPuojk-ef6 735d3-534c-948 x-c69i-6115n69 33b82">22-30</ td><td ID="Observatio f-Mrtxspap-dy8 352f3-050a-505 k-a57j-2962q60 33b82">L</td>< td ID="Observatio c-Jpsbvd-yd243 2a6-502b-751n- h11h-8055n9650 b82">Final</td > Chloride 104meq/L 98-107 <td [facility] ID="Observatio ([facility] l-Prde-3bogy21 Extended 5-9d11-43kf6s04-25zx-48 [facility]) 1c-p232417q183 c">(20421) Chloride</td>< td ID="Observatio f-Rajzh-8naeg6 67-7r50-38hc-9 61c-w871531l62 1c">104</td><t d ID="Observatio j-Zfcb-7kfbl90 8-6p26-92pf8a56-68kp-31 1c-d308863c954 c">meq/L</td>< td ID="Observatio c-DolFwoxb-8mo qv953-1z03-74h d-219w-e846061 e181c">98-107< /td><td ID="Observatio v-Wncufdht-7xr rk537-2s68-47o d-134p-b528447 e181c"></td><t d ID="Observatio h-Cyoonk-8geuq 272-8g18-28ya- 961c-p387070k8 81c">Final</td > Glucose 145mg/dL 70-106 Above high normal <td [facility] ID="Observatio ([facility] j-Aegy-02vr842 Extended 1-fkm1-737l-a7 [facility]) fa-h81w9179u29 4">(43508) Glucose</td><t d ID="Observatio f-Hqpdo-04pk89 55-yax4-210t-a 7fa-y79m8884v3 04">145</td><t d ID="Observatio m-Qtbh-72ew719 2-qjb2-654c-a7 fa-b97v4826g41 4">mg/dL</td>< td ID="Observatio w-DppPwcur-96z h5326-qip2-363 n-y5zv-a59f418 1b904">70-106< /td><td ID="Observatio g-Srlzwoms-82a g2616-zoj6-499 w-k9es-t48j624 1b904">H</td>< td ID="Observatio o-Avovef-55ct1 854-nkw0-398m- p6zd-u40y6052q 904">Final</td > Calcium 9.6mg/dL 8.4-10.2 <td [facility] ID="Observatio ([facility] r-Cngw-u4rvu01 Extended 5-h778-5469k093-5082-9i [facility]) e9-1jpogh23592 a">(86658) Calcium</td><t d ID="Observatio m-Bxtsb-p4vfw4 64-e178-1839-8 de9-0srjbp7452 3a">9.6</td><t d ID="Observatio e-Exev-x2tou29 h676-1698-8l e9-0pcjls82253 a">mg/dL</td>< td ID="Observatio q-RltRmqkk-s1f tn618-x554-356 7-8pf4-8ruiwh3 6793a">8.4-10. 2</td><td ID="Observatio y-Fsrbpgji-c0o fd965-w640-182 3-0fz1-8hujhd3 6793a"></td><t d ID="Observatio o-Ohjkzu-u1ixd 958-t471-0269- 4li3-5cgyub140 93a">Final</td > Urea Nitrogen 20mg/dL 9-20 <td [facility] ID="Observatio ([facility] f-Pkqm-2049p55 Extended 2-d15c-41o7x24n-93c5-mo [facility]) ef-1l50bv0iez1 7">(99936) Urea Nitrogen</td>< td ID="Observatio v-Ekkmc-0055t1 60-n21f-01h3-b aef-0b07om1alg 47">20</td><td ID="Observatio n-Zccg-2707d84 3-t47v-08e2n12t-30d9-jp ef-8u52tl6nnh3 7">mg/dL</td>< td ID="Observatio k-HzeYoyth-854 1p057-u87a-08n 1-tamg-4s86zn6 eba47">9-20</t d><td ID="Observatio p-Uvqxqnbm-778 8j541-n76p-66a 7-vdzb-2d07iw5 eba47"></td><t d ID="Observatio b-Tffgoz-6827k 362-g96y-30c4- baef-8e67dw4qj a47">Final</td > Creatinine 1.30mg/d 0.52-1.0 Above high normal <td [facility] Serum L 4 ID="Observatio ([facility] e-Hyrd-hhw9w9r Extended e-g8w8-08hzt6l2-97eg-a7 [facility]) 9b-59u1z982m0f d">(20637) Creatinine Serum</td><td ID="Observatio j-Szoqo-ubo0j7 mi-k0t3-11zv-a 19b-67f4r476x9 ad">1.30</td>< td ID="Observatio q-Ujxf-ilj9h8n j-t1h6-74hhj0u3-69pp-w4 9b-97j7v423f0f d">mg/dL</td>< td ID="Observatio w-WauOjzll-vgr 5h5fw-b2h4-83x u-f40f-39o1p18 3c8ad">0.52-1. 04</td><td ID="Observatio h-Jkztrmyq-ble 9g5pm-m0w8-52n q-m09g-27w3v95 3c8ad">H</td>< td ID="Observatio k-Fdivqr-bwk6t 5ij-a4h2-58bm- f36r-97n0f853e 8ad">Final</td > Protein, 8.2g/dL 6.3-8.2 <td [facility] Total ID="Observatio ([facility] h-Oukd-0nc6kee Extended 2-mec0-7xh0-9e [facility]) 84-c0u609749t9 8">(65558) Protein, Total</td><td ID="Observatio a-Ymnlg-3mp6lc g9-wij8-3kw1-9 t52-x3g755290j 08">8.2</td><t d ID="Observatio u-Hwfc-0br0ixv 8-pkp1-9tx1-9e 84-m5p808784v6 8">g/dL</td><t d ID="Observatio t-UbvDcygx-8as 4omq7-isl1-1mp 7-9c31-u9z3727 14c08">6.3-8.2 </td><td ID="Observatio o-Wtmcqctw-2vo 1rxe9-ogs0-8jm 6-0k23-k8w9880 14c08"></td><t d ID="Observatio v-Hnjvqn-7fg7s tc6-nrh6-4rp9- 1e58-y0f010733 c08">Final</td > Albumin 4.6g/dL 3.5-5.0 <td [facility] ID="Observatio ([facility] t-Ctbg-22z2n48 Extended 9-7rl3-85z65bv5-89f7-jx [facility]) e3-539nl20r972 e">(63795) Albumin</td><t d ID="Observatio b-Rhran-86z4g6 68-6vp8-72h9-a ae3-661wk53m47 1e">4.6</td><t d ID="Observatio z-Orii-31h3f31 1-0no7-72a16mh6-72q8-nj e3-839tx52y224 e">g/dL</td><t d ID="Observatio g-TggWivky-86y 5j199-3do4-73j 5-gzx8-772zr83 a581e">3.5-5.0 </td><td ID="Observatio j-Aqvkhojy-86t 8e114-3rp8-56i 7-hku3-233nt68 a581e"></td><t d ID="Observatio e-Qntpwu-08a7y 803-8vf9-45r3- aae3-785fw20o5 81e">Final</td > Globulin 3.6g/dL 2.1-3.5 Above high normal <td [facility] ID="Observatio ([facility] g-Qdbq-533422f Extended 9-8q99-13077a82-7235-2v [facility]) e6-1735rrjp535 5">(87513) Globulin</td>< td ID="Observatio f-Ijzkv-429517 b4-3o26-7591-8 ae6-7245szeb43 05">3.6</td><t d ID="Observatio t-Njiw-108463s 3-7f31-04417r16-8251-4k e6-6626nbld734 5">g/dL</td><t d ID="Observatio b-KwxItoov-871 352g0-1i62-452 5-9ji5-3080inl a0805">2.1-3.5 </td><td ID="Observatio y-Vqxvnawi-238 538l1-2q51-518 4-6jg3-0052vzs a0805">H</td>< td ID="Observatio w-Bqqdvu-17228 3e9-1p64-0985- 5oo3-9511sjks4 805">Final</td > Bilirubin, 0.5mg/dL 0.0-1.1 <td [facility] Total ID="Observatio ([facility] w-Hqod-07q6971 Extended o-dfh5-9630-9e [facility]) 6c-1jzjq2553lk e">(00556) Bilirubin, Total</td><td ID="Observatio f-Rknkl-57k225 0d-zxv5-5069-9 r9u-4kull6372z de">0.5</td><t d ID="Observatio n-Jrgg-97g4362 j-wlk5-9674-9e 6c-7mcpq5520js e">mg/dL</td>< td ID="Observatio n-SmhYkkbi-98p 6671z-agt6-211 0-2f2z-1xaex23 43dde">0.0-1.1 </td><td ID="Observatio j-Womoozfm-51i 1405q-yyi4-454 5-3a6u-7roxs51 43dde"></td><t d ID="Observatio k-Qmgfas-52u28 23w-grs7-1824- 0j8r-4qour4960 dde">Final</td > SGOT (AST) 27U/L 17-59 <td SIGMACARE ID="Observatio ([facility] a-Awjn-t46z02b Extended i-li52-4p73us79[facility]) 91-m2p3i9j79y0 9">([id number]) SGOT (AST)</td><td ID="Observatio z-Jyykt-z22m38 so-jc56-4z98-b z47-o5n1i0q99l 89">27</td><td ID="Observatio q-Maie-b55x44e k-hj92-9w95cv19-7j45-ph 91-w3s1a6u29p2 9">U/L</td><td ID="Observatio v-VtpLvrls-q20 x17uq-mc81-9j6 6-ph35-j6n9d8r 08a89">17-59</ td><td ID="Observatio j-Hwaleuqe-u43 k94tc-er93-2t4 7-ux94-e9e8y9a 08a89"></td><t d ID="Observatio p-Wbmyli-a28k9 0pu-tm20-8p18- hw18-p8f4s6b08 a89">Final</td > SGPT (ALT) 12U/L 9-52 <td SIGMACARE ID="Observatio ([facility] j-Yepl-4a4938o [facility] 0-0ys5-5ip32dv1-0uy6-7i [facility]) 82-o6bk31y2wt3 5">([id number]) SGPT (ALT)</td><td ID="Observatio r-Qdlsk-3u6889 k7-8ya2-6zn5-8 a99-o4vx04t9fd 85">12</td><td ID="Observatio l-Hefv-4q6705d 5-8ql0-5sy89jh9-7tu1-6v 82-h3yd43u7sf7 5">U/L</td><td ID="Observatio o-HpwXynvs-8g4 292x3-7hp1-0op 8-3j85-c2ql30a 3ba85">9-52</t d><td ID="Observatio j-Yvmblhsa-9y6 451f1-6ew2-9mr 9-8p85-y8ly97c 3ba85"></td><t d ID="Observatio v-Nbqlru-4o583 6a1-5qt6-1nj4- 6d71-o4ca30c0t a85">Final</td > Alkaline 113U/L 38-126 <td SIGMACARE Phosphatase, ID="Observatio ([facility] d-Yydm-444kou4 Extended 2-vj09-6094sg27-8940-ey [facility]) [id number] b">([id number]) Alkaline Phosphatase, Serum</td><td ID="Observatio s-Pfxog-713pfl 36-vj67-7283-b q2v-l305f349t6 fb">113</td><t d ID="[facility] u-Mjtw-594ryc4 9-eo08-9148ey49-5695-js 8a-d168s319w1q b">U/L</td><td ID="Observoxanao m-AwiMvtcc-578 rps21-sd58-800 8-ul5m-u527x74 3c8fb">38-126< /td><td ID="Observatio c-Fbrgdhgp-656 kia44-oh91-173 9-hi1l-w579e10 3c8fb"></td><t d ID="Observoxanao j-Jkgfjy-316pn b88-ey69-8110- tp4b-p707f494o 8fb">Final</td > ID Date Data Source [id number] 05/09/2018 01:48:00 PM EST [facility] Name Value Range Interpretation Description Data Sup porting Code Source(s) Document(s ) Color YELLOW Yellow Normal (applies Color [facility] to non-numeric [facility] results) System Appearance of CLEAR Clear Normal (applies Urine [facility] Urine to non-numeric Appearance [facility] results) System Specific 1.010 1.001 - Normal (applies Urine Specific [facility] gravity of 1.035 to non-numeric [facility] Urine results) System pH.. 6.0 4.6 - 8.0 Normal (applies pH.. [facility] {pH_units} pH units to non-numeric Health results) System Glucose, UA 100 mg/dl < 50 Normal (applies Glucose, UA [facility] mg/dl to non-numeric Health results) System Protein 30 mg/dl < 30 Normal (applies Protein [facility] [Mass/volume] mg/dl to non-numeric Health in Serum or results) System Plasma Bilirubin NEGATIVE Negative Normal (applies Bilirubin [facility] Urine Sm to Lg to non-numeric Urine Health results) System Urobilinogen 0.2 mg/dL 0.2 - 1.0 Normal (applies Urobilinogen [facility] [Mass/volume] mg/dL to non-numeric [facility] in Urine results) System Ketones NEGATIVE Negative Normal (applies Ketones UA [facility] [Mass/volume] mg/dL to non-numeric Health in Urine results) System Nitrate+Nitrit NEGATIVE Negative Normal (applies Nitrite [facility] Neg/Pos to non-numeric Health [Mass/volume] results) System in Unspecified specimen Leukocyte TRACE Negative Abnormal Leukocyte [facility] esterase Tr to Lg (applies to Esterase Health [Units/volume] non-numeric Concentration System in Urine results) Leukocytes 2 {/HPF} 0 - 2 Normal (applies White Blood [facility] [#/volume] in /HPF to non-numeric Cells Health Unspecified results) System specimen by Automated count Red Blood 1 {/HPF} 0 - 1 Normal (applies Red Blood [facility] Cells /HPF to non-numeric Cells Health results) System Urine Blood NEGATIVE Negative Normal (applies Urine Blood [facility] Sm to Lg to non-numeric Health results) System ID Date Data Source [id number] 05/07/2018 06:00:00 AM EST [facility] Name Value Range Interpretation Description Data Sup porting Code Source(s) Document(s ) Leukocytes 5.7 4.8 - Normal (applies WBC Count [facility] [#/volume] in {10^3_u 10.8 to non-numeric Health Unspecified L} 10^3 uL results) System specimen by Automated count Erythrocytes 3.74 3.80 - Below low normal RBC Count [facility] [#/volume] in {10^6_u 5.20 Health Blood by L} 10^6 uL System Automated count Hemoglobin 10.3 12.0 - Below low normal Hemoglobin [facility] [Mass/volume] in {gm/dL} 16.0 Health Blood gm/dL System Hematocrit 32.7 % 36.0 - Below low normal Hematocrit [facility] [Volume 46.0 % Health Fraction] of System Blood Erythrocyte mean 87.4 fl 83.0 - Normal (applies MCV [facility] corpuscular 98.0 fl to non-numeric Health volume [Entitic results) System volume] by Automated count Erythrocyte mean 27.5 pg 26.0 - Normal (applies MCH [facility] corpuscular 34.0 pg to non-numeric Health hemoglobin results) System [Entitic mass] by Automated count Erythrocyte mean 31.5 33.0 - Below low normal MCHC [facility] corpuscular {gm/dL} 37.0 Health hemoglobin gm/dL System concentration [Mass/volume] by Automated count Erythrocyte 16.0 % 11.5 - Above high RDW-CV [facility] distribution 14.5 % normal Health width [Entitic System volume] by Automated count Platelets 252 130 - Normal (applies Platelet Count [facility] [#/volume] in {10^3_u 400 to non-numeric Health Plasma by L} 10^3 uL results) System Automated count Platelet mean 9.9 fl 7.4 - Normal (applies MPV [facility] volume [Entitic 10.4 fl to non-numeric Health volume] in Blood results) System by Automated count Monocytes 0.4 0.3 - Normal (applies Monocyte # [facility] [#/volume] in {10^3_u 0.9 to non-numeric Health Blood by Manual L} 10^3 uL results) System count Eosinophils 0.20 0.05 - Normal (applies Eosinophil # [facility] [#/volume] in {10^3_u 0.30 to non-numeric Health Blood L} 10^3 uL results) System Neutrophils 2.3 2.0 - Normal (applies Neutrophil # [facility] [#/volume] in {10^3_u 8.1 to non-numeric Health Body fluid L} 10^3 uL results) System Basophils 0.04 0.00 - Normal (applies Basophil # [facility] [#/volume] in {10^3_u 0.10 to non-numeric Health Blood by L} 10^3 uL results) System Automated count Lymphocyte # 2.7 1.0 - Normal (applies Lymphocyte # [facility] {10^3_u 5.5 to non-numeric Health L} 10^3 uL results) System Neutrophils/100 40.7 % 55.0 - Below low normal Neutrophil % [facility] leukocytes in 75.0 % [facility] Blood by System Automated count Monocytes/100 6.5 % 6.0 - Normal (applies Monocyte % [facility] leukocytes in 9.0 % to non-numeric Health Blood results) System Eosinophils/100 3.5 % 0.0 - Normal (applies Eosinophil % [facility] leukocytes in 4.0 % to non-numeric Health Unspecified results) System specimen Basophils/100 0.7 % 0.0 - Normal (applies Basophil % [facility] leukocytes in 1.0 % to non-numeric Health Unspecified results) System specimen by Manual count Lymphocytes 48.4 % 21.0 - Normal (applies Lymphocyte % [facility] [#/volume] in 51.0 % to non-numeric Health Blood by results) System Automated count Immature 0.2 % 0.0 - Normal (applies Immature [facility] Granulocytes % 0.8 % to non-numeric Granulocytes % Healt h results) System Nucleated 0.0 0.0 - Normal (applies NRBC % [facility] erythrocytes {/100_W 0.0 to non-numeric Health [#/volume] in BC} /100 results) System Body fluid WBC Immature 0.01 0.00 - Normal (applies Immature [facility] Granulocytes # {10^3_u 0.09 to non-numeric Granulocytes # Healt h L} 10^3 uL results) System NRBC # 0.00 0.90 - Below low normal NRBC # [facility] {10^3_u 11.20 Health L} 10^3 uL System ID Date Data Source [id number] 05/07/2018 06:00:00 AM EST [facility] Name Value Range Interpretation Description Data Sup porting Code Source(s) Document(s ) Sodium 135 137 - Below low normal Sodium, Serum [facility] [Moles/volume] in mmol/L 145 [facility] Serum or Plasma mmol/L System Potassium 4.6 3.6 - Normal (applies Potassium, [facility] [Mass/volume] in mmol/L 5.0 to non-numeric Serum Health Serum or Plasma mmol/L results) System Chloride 107 98 - Normal (applies Chloride, [facility] [Moles/volume] in mmol/L 107 to non-numeric Serum Health Serum or Plasma mmol/L results) System Carbon dioxide, 20.0 22.0 - Below low normal CO2, Serum [facility] total mmol/L 30.0 Health [Moles/volume] in mmol/L System Serum or Plasma Total Protein 7.7 6.3 - Normal (applies Total Protein [facility] mg/dl 8.2 to non-numeric Health mg/dl results) System Glucose 96 65 - Normal (applies Glucose, [facility] [Mass/volume] in mg/dL 105 to non-numeric Serum Health Serum or Plasma mg/dL results) System Urea nitrogen 35 7 - 18 Above high Blood Urea [facility] [Mass/volume] in mg/dl mg/dl normal Nitrogen, Health Serum or Plasma Serum System Creatinine 1.90 0.70 - Above high Creatinine, [facility] [Mass/volume] in mg/dl 1.20 normal Serum Health Serum or Plasma mg/dl System Alkaline 119 38 - Normal (applies Alkaline [facility] phosphatase {IU/L} 126 to non-numeric Phosphatase, Health isoenzymes IU/L results) Serum System [Enzymatic activity/volume] in Serum or Plasma by Heat stability Bilirubin.total 0.3 0.2 - Normal (applies Bilirubin, [facility] [Mass/volume] in mg/dl 1.3 to non-numeric Serum Total Health Serum or Plasma mg/dl results) System Direct Bilirubin 0.2 0.0 - Normal (applies Direct [facility] mg/dl 0.4 to non-numeric Bilirubin [facility] mg/dl results) System Aspartate 84 5 - 40 Above high Aspartate [facility] aminotransferase {IU/L} IU/L normal Transaminase, Health [Enzymatic Serum System activity/volume] in Serum or Plasma by With P-5'-P Albumin 3.8 3.9 - Below low normal Albumin, [facility] [Mass/volume] in {gm/dl} 5.0 Serum Health Serum or Plasma gm/dl System I. Phosphorus 5.5 2.5 - Above high I. Phosphorus [facility] mg/dl 4.5 normal Health mg/dl System Alanine 106 7 - 56 Above high Alanine [facility] aminotransferase {IU/L} IU/L normal Aminotransfer Health [Enzymatic ase, Serum System activity/volume] in Serum or Plasma Calcium 9.4 8.4 - Normal (applies Calcium, [facility] [Mass/volume] in mg/dl 10.2 to non-numeric Total Serum Health Serum or Plasma mg/dl results) System A/G Ratio 0.97 Normal (applies A/G Ratio [facility] to non-numeric Health results) System Urate 6.1 2.5 - Normal (applies Uric Acid, [facility] [Mass/volume] in mg/dl 7.5 to non-numeric Serum Health Serum or Plasma mg/dl results) System Anion gap in Serum 8.00 8.00 - Normal (applies Anion Gap [facility] or Plasma mmol/L 12.00 to non-numeric Health mmol/L results) System Glomerular 26.64 Normal (applies GFR [facility] filtration to non-numeric Health rate/1.73 sq results) System M.predicted [Volume Rate/Area] in Serum or Plasma by Creatinine-based formula (CKD-EPI) eGFR will provide clinicians with a more accurate indicator of renal function then the serum creatinine. The eGFR is automa tically calculated from an empiric formula (endorsed by the National Kid[employer] ion) which incorporates age, sex, and race.Clinicians may notice surprisingly low GFR's with serum creatinine valueswithin normal range- particularly in elderly wo men (with low muscle mass).In the hospital setting, the eGFR should add an element of safety in drug dosing, in assessing the risk of IV contrast administration, and in assessing vascular risk.The NKF staging system is as follows:Normal: eGFR >90 with no kidney markersStage 1: eGFR >90 with kidney markers*Stage 2: eGFR 60- 89Stage 3: eGFR 30-59Stage 4: eGFR 15-29Stage 5: eGFR <15 (usually requir ing dialysis)*Markers include: Proteinuria, Hematuria, abnormal imaging-studies, or other blood or urine test abnormalities ID Date Data Source [id number] 05/04/2018 09:35:06 AM [facility] System Name Value Range Interpretation Description Data Sup porting Code Source(s) Document(s ) Tissue Results for case # Normal (applies Tissue Exam Mon [facility] Exam [id number] to non-[facility] SURGICAL PATHOLOGY results) System REPORTCLINICAL INFORMATION: Dyspepsia. Colon cancer screening.PREOPERA TIVE DIAGNOSIS: Same.POSTOPERATIVE DIAGNOSIS: Gastritis. Colon polyps. Rectal polyps.FINAL DIAGNOSIS: A: Duodenum, 2nd portion, biopsy:No significant pathologic changes.Negative for celiac disease.B: Stomach, antral transitional mucosa, biopsy:Minimal chronic gastritis and focal proton pump inhibitor like changes of oxyntic glands.Negative for Helicobacter pylori on Giemsa stain.C: Colon, mid ascending, biopsy:Tubular adenoma.D: Colon, mid transverse, biopsy:Tubular adenoma.E: Colon, rectum, biopsy:[place] us adenoma.GO/stGIKAMALA SUMMERS MDElectronically Signed By: GROSS DESCRIPTION: A: In formalin, labeled "second portion of duodenum; rule out celiac disease", the specimen consists of 4 oden soft tissue averaging 0.2 x 0.2 x 0.2cm which are submitted in toto in one cassette. B: In formalin, labeled "gastric antrum", the specimen consists of 3 oden soft tissue averaging 0.3 x 0.2 x 0.1cm which are submitted in toto in one cassette. C: In formalin, labeled "polyp, mid ascending colon", the specimen consists of a 0.5 x 0.4 x 0.4cm oden pink polyp which is inked at the resection margin and bisected and entirely submitted in one cassette. D: In formalin, labeled "mid transverse colon polyp", the specimen consists of a 0.3 x 0.3 x 0.3cm oden soft tissue which is submitted in toto in one cassette. E: In formalin, labeled "rectal polyp", the specimen consists of a 1.5 x 1.4 x 1.3cm lobulated, oden pink polyp. The resection margin is inked and the specimen is sectioned and entirely submitted in one cassette.MV/stJohnnyge 2 of 2Testing performed at [facility], [address] [place] [address]. ID Date Data Source [id number] 05/03/2018 06:00:00 AM EST [facility] System Name Value Range Interpretation Description Data Sup porting Code Source(s) Document(s ) Type B Normal (applies Type [facility] to non-numeric Health System results) D Ab [Titer] Positive Normal (applies Rh [facility] in Serum or to non-numeric Health System Plasma results) Antibody Negative Normal (applies Antibody [facility] Screen to non-numeric Screen Health System results) ID Date Data Source [id number] 05/03/2018 06:00:00 AM EST [facility] System Name Value Range Interpretation Description Data Sup porting Code Source(s) Document(s ) Leukocytes 5.4 4.8 - Normal (applies WBC Count [facility] [#/volume] in {10^3_u 10.8 to non-numeric Health Unspecified L} 10^3 uL results) System specimen by Automated count Erythrocytes 3.74 3.80 - Below low normal RBC Count [facility] [#/volume] in {10^6_u 5.20 Health Blood by L} 10^6 uL System Automated count Hemoglobin 10.3 12.0 - Below low normal Hemoglobin [facility] [Mass/volume] in {gm/dL} 16.0 Health Blood gm/dL System Hematocrit 31.3 % 36.0 - Below low normal Hematocrit [facility] [Volume 46.0 % Health Fraction] of System Blood Erythrocyte mean 83.7 fl 83.0 - Normal (applies MCV [facility] corpuscular 98.0 fl to non-numeric Health volume [Entitic results) System volume] by Automated count Erythrocyte mean 27.5 pg 26.0 - Normal (applies MCH [facility] corpuscular 34.0 pg to non-numeric Health hemoglobin results) System [Entitic mass] by Automated count Erythrocyte mean 32.9 33.0 - Below low normal MCHC [facility] corpuscular {gm/dL} 37.0 Health hemoglobin gm/dL System concentration [Mass/volume] by Automated count Erythrocyte 17.2 % 11.5 - Above high RDW-CV [facility] distribution 14.5 % normal Health width [Entitic System volume] by Automated count Platelets 285 130 - Normal (applies Platelet Count [facility] [#/volume] in {10^3_u 400 to non-numeric Health Plasma by L} 10^3 uL results) System Automated count Platelet mean 10.5 fl 7.4 - Above high MPV [facility] volume [Entitic 10.4 fl normal Health volume] in Blood System by Automated count Monocytes 0.5 0.3 - Normal (applies Monocyte # [facility] [#/volume] in {10^3_u 0.9 to non-numeric Health Blood by Manual L} 10^3 uL results) System count Eosinophils 0.16 0.05 - Normal (applies Eosinophil # [facility] [#/volume] in {10^3_u 0.30 to non-numeric Health Blood L} 10^3 uL results) System Neutrophils 3.1 2.0 - Normal (applies Neutrophil # [facility] [#/volume] in {10^3_u 8.1 to non-numeric Health Body fluid L} 10^3 uL results) System Basophils 0.03 0.00 - Normal (applies Basophil # [facility] [#/volume] in {10^3_u 0.10 to non-numeric Health Blood by L} 10^3 uL results) System Automated count Lymphocyte # 1.6 1.0 - Normal (applies Lymphocyte # [facility] {10^3_u 5.5 to non-numeric Health L} 10^3 uL results) System Neutrophils/100 56.4 % 55.0 - Normal (applies Neutrophil % [facility] grace leukocytes in 75.0 % to non-numeric Health Blood by results) System Automated count Monocytes/100 10.0 % 6.0 - Above high Monocyte % [facility] leukocytes in 9.0 % normal Health Blood System Eosinophils/100 3.0 % 0.0 - Normal (applies Eosinophil % [place] grace leukocytes in 4.0 % to non-numeric Health Unspecified results) System specimen Basophils/100 0.6 % 0.0 - Normal (applies Basophil % [facility] leukocytes in 1.0 % to non-numeric Health Unspecified results) System specimen by Manual count Lymphocytes 29.8 % 21.0 - Normal (applies Lymphocyte % [facility] [#/volume] in 51.0 % to non-numeric Health Blood by results) System Automated count Immature 0.2 % 0.0 - Normal (applies Immature [facility] Granulocytes % 0.8 % to non-numeric Granulocytes % Healt h results) System Nucleated 0.0 0.0 - Normal (applies NRBC % [facility] erythrocytes {/100_W 0.0 to non-numeric Health [#/volume] in BC} /100 results) System Body fluid WBC Immature 0.01 0.00 - Normal (applies Immature [facility] Granulocytes # {10^3_u 0.09 to non-numeric Granulocytes # Healt h L} 10^3 uL results) System NRBC # 0.00 0.90 - Below low normal NRBC # [facility] {10^3_u 11.20 Health L} 10^3 uL System Immature 3.60 % 0.90 - Normal (applies Immature [facility] Platelet 11.20 % to non-numeric Platelet Health Fraction results) Fraction System ID Date Data Source [id number] 05/03/2018 06:00:00 AM EST [facility] System Name Value Range Interpretation Description Data Sup porting Code Source(s) Document(s ) Sodium 135 137 - Below low normal Sodium, Serum [facility] [Moles/volume] in mmol/L 145 Health Serum or Plasma mmol/L System Potassium 4.7 3.6 - Normal (applies Potassium, [facility] [Mass/volume] in mmol/L 5.0 to non-numeric Serum Health Serum or Plasma mmol/L results) System Chloride 106 98 - Normal (applies Chloride, [facility] [Moles/volume] in mmol/L 107 to non-numeric Serum Health Serum or Plasma mmol/L results) System Carbon dioxide, 21.0 22.0 - Below low normal CO2, Serum [facility] total mmol/L 30.0 Health [Moles/volume] in mmol/L System Serum or Plasma Total Protein 7.5 6.3 - Normal (applies Total Protein [facility] mg/dl 8.2 to non-numeric Health mg/dl results) System Glucose 253 65 - Above high Glucose, [facility] [Mass/volume] in mg/dL 105 normal Serum Health Serum or Plasma mg/dL System Urea nitrogen 31 7 - 18 Above high Blood Urea [facility] [Mass/volume] in mg/dl mg/dl normal Nitrogen, Health Serum or Plasma Serum System Creatinine 2.40 0.70 - Above high Creatinine, [facility] [Mass/volume] in mg/dl 1.20 normal Serum Health Serum or Plasma mg/dl System Alkaline 96 38 - Normal (applies Alkaline [facility] phosphatase {IU/L} 126 to non-numeric Phosphatase, Health isoenzymes IU/L results) Serum System [Enzymatic activity/volume] in Serum or Plasma by Heat stability Bilirubin.total 0.3 0.2 - Normal (applies Bilirubin, [facility] [Mass/volume] in mg/dl 1.3 to non-numeric Serum Total Health Serum or Plasma mg/dl results) System Direct Bilirubin 0.2 0.0 - Normal (applies Direct [facility] mg/dl 0.4 to non-numeric Bilirubin Health mg/dl results) System Aspartate 28 5 - 40 Normal (applies Aspartate [facility] aminotransferase {IU/L} IU/L to non-numeric Transaminase, Heal [Enzymatic results) Serum System activity/volume] in Serum or Plasma by With P-5'-P Albumin 3.8 3.9 - Below low normal Albumin, [facility] [Mass/volume] in {gm/dl} 5.0 Serum Health Serum or Plasma gm/dl System I. Phosphorus 3.8 2.5 - Normal (applies I. Phosphorus [facility] mg/dl 4.5 to non-numeric Health mg/dl results) System Alanine 41 7 - 56 Normal (applies Alanine [facility] aminotransferase {IU/L} IU/L to non-numeric Aminotransfer Heal [Enzymatic results) ase, Serum System activity/volume] in Serum or Plasma Calcium 9.3 8.4 - Normal (applies Calcium, [facility] [Mass/volume] in mg/dl 10.2 to non-numeric Total Serum Health Serum or Plasma mg/dl results) System A/G Ratio 1.03 Normal (applies A/G Ratio [facility] to non-numeric Health results) System Urate 5.7 2.5 - Normal (applies Uric Acid, [facility] [Mass/volume] in mg/dl 7.5 to non-numeric Serum Health Serum or Plasma mg/dl results) System Anion gap in Serum 8.00 8.00 - Normal (applies Anion Gap U[place] grace or Plasma mmol/L 12.00 to non-numeric Health mmol/L results) System Glomerular 20.35 Normal (applies GFR [facility] filtration to non-numeric Health rate/1.73 sq results) System M.predicted [Volume Rate/Area] in Serum or Plasma by Creatinine-based formula (CKD-EPI) eGFR will provide clinicians with a more accurate indicator of renal function then the serum creatinine. The eGFR is automa tically calculated from an empiric formula (endorsed by the National Kidney [employer] ion) which incorporates age, sex, and race.Clinicians may notice surprisingly low GFR's with serum creatinine valueswithin normal range- particularly in elderly wo men (with low muscle mass).In the hospital setting, the eGFR should add an element of safety in drug dosing, in assessing the risk of IV contrast administration, and in assessing vascular risk.The NKF staging system is as follows:Normal: eGFR >90 with no kidney markersStage 1: eGFR >90 with kidney markers*Stage 2: eGFR 60- 89Stage 3: eGFR 30-59Stage 4: eGFR 15-29Stage 5: eGFR <15 (usually requir ing dialysis)*Markers include: Proteinuria, Hematuria, abnormal imaging-studies, or other blood or urine test abnormalities ID Date Data Source [id number] 05/02/2018 04:40:00 PM [facility] System Name Value Range Interpretation Description Data Sup porting Code Source(s) Document(s ) aPTT in Blood 25.4 20.0 - Normal (applies Activated [facility] by {Second 30.3 to non-numeric Partial Health Coagulation s} Seconds results) Thromboplastin System assay Time ID Date Data Source [id number] 05/02/2018 04:40:00 PM EST [facility] System Name Value Range Interpretation Description Data Sup porting Code Source(s) Document(s ) Prothrombin 10.50 9.40 - Normal (applies Prothrombin [facility] time (PT) {seconds 11.30 to non-numeric time (PT) Health } seconds results) System INR in Blood 1.00 0.70 - Normal (applies INR Result [facility] by Coagulation {Ratio} 1.10 to non-numeric Health assay Ratio results) System Normal = 0.7-1.1Therapeutic = 2.0-3.0Mec hanical Heart = 3.0-4.5 ID Date Data Source [id number] 05/02/2018 01:36:00 PM EST [facility] System Name Value Range Interpretation Description Data Sup porting Code Source(s) Document(s ) Leukocytes 6.2 4.8 - Normal (applies WBC Count [facility] [#/volume] in {10^3_u 10.8 to non-numeric Health Unspecified L} 10^3 uL results) System specimen by Automated count Erythrocytes 3.66 3.80 - Below low normal RBC Count [facility] [#/volume] in {10^6_u 5.20 Health Blood by L} 10^6 uL System Automated count Hemoglobin 10.1 12.0 - Below low normal Hemoglobin [facility] [Mass/volume] in {gm/dL} 16.0 Health Blood gm/dL System Hematocrit 31.3 % 36.0 - Below low normal Hematocrit [facility] [Volume 46.0 % Health Fraction] of System Blood Erythrocyte mean 85.5 fl 83.0 - Normal (applies MCV [facility] corpuscular 98.0 fl to non-numeric Health volume [Entitic results) System volume] by Automated count Erythrocyte mean 27.6 pg 26.0 - Normal (applies MCH [facility] corpuscular 34.0 pg to non-numeric Health hemoglobin results) System [Entitic mass] by Automated count Erythrocyte mean 32.3 33.0 - Below low normal MCHC [facility] corpuscular {gm/dL} 37.0 Health hemoglobin gm/dL System concentration [Mass/volume] by Automated count Erythrocyte 17.2 % 11.5 - Above high RDW-CV [facility] distribution 14.5 % normal Health width [Entitic System volume] by Automated count Platelets 289 130 - Normal (applies Platelet Count [facility] [#/volume] in {10^3_u 400 to non-numeric Health Plasma by L} 10^3 uL results) System Automated count Platelet mean 10.6 fl 7.4 - Above high MPV [facility] volume [Entitic 10.4 fl normal Health volume] in Blood System by Automated count Monocytes 0.5 0.3 - Normal (applies Monocyte # [facility] [#/volume] in {10^3_u 0.9 to non-numeric Health Blood by Manual L} 10^3 uL results) System count Eosinophils 0.21 0.05 - Normal (applies Eosinophil # [facility] [#/volume] in {10^3_u 0.30 to non-numeric Health Blood L} 10^3 uL results) System Neutrophils 3.7 2.0 - Normal (applies Neutrophil # [facility] [#/volume] in {10^3_u 8.1 to non-numeric Health Body fluid L} 10^3 uL results) System Basophils 0.02 0.00 - Normal (applies Basophil # [facility] [#/volume] in {10^3_u 0.10 to non-numeric Health Blood by L} 10^3 uL results) System Automated count Lymphocyte # 1.8 1.0 - Normal (applies Lymphocyte # [facility] {10^3_u 5.5 to non-numeric Health L} 10^3 uL results) System Neutrophils/100 59.7 % 55.0 - Normal (applies Neutrophil % [place] grace leukocytes in 75.0 % to non-numeric Health Blood by results) System Automated count Monocytes/100 7.3 % 6.0 - Normal (applies Monocyte % [facility] leukocytes in 9.0 % to non-numeric Health Blood results) System Eosinophils/100 3.4 % 0.0 - Normal (applies Eosinophil % [place] grace leukocytes in 4.0 % to non-numeric Health Unspecified results) System specimen Basophils/100 0.3 % 0.0 - Normal (applies Basophil % [facility] leukocytes in 1.0 % to non-numeric Health Unspecified results) System specimen by Manual count Lymphocytes 29.0 % 21.0 - Normal (applies Lymphocyte % [facility] [#/volume] in 51.0 % to non-numeric Health Blood by results) System Automated count Immature 0.3 % 0.0 - Normal (applies Immature [facility] Granulocytes % 0.8 % to non-numeric Granulocytes % Healt h results) System Nucleated 0.0 0.0 - Normal (applies NRBC % [facility] erythrocytes {/100_W 0.0 to non-numeric Health [#/volume] in BC} /100 results) System Body fluid WBC Immature 0.02 0.00 - Normal (applies Immature [facility] Granulocytes # {10^3_u 0.09 to non-numeric Granulocytes # Healt h L} 10^3 uL results) System NRBC # 0.00 0.90 - Below low normal NRBC # [facility] {10^3_u 11.20 Health L} 10^3 uL System ID Date Data Source [id number] 04/30/2018 10:15:00 PM EST [facility] System Name Value Range Interpretation Description Data Sup porting Code Source(s) Document(s ) Blood, POSITIVE Normal (applies to Blood, Occult [facility] Occult non-numeric Feces Health System Feces results) ID Date Data Source [id number] 04/29/2018 05:00:00 PM EST [facility] System Name Value Range Interpretation Description Data Sup porting Code Source(s) Document(s ) aPTT in Blood 24.7 20.0 - Normal (applies Activated [facility] by {Second 30.3 to non-numeric Partial Health Coagulation s} Seconds results) Thromboplastin System assay Time ID Date Data Source [id number] 04/29/2018 05:00:00 PM EST [facility] System Name Value Range Interpretation Description Data Sup porting Code Source(s) Document(s ) Prothrombin 10.70 9.40 - Normal (applies Prothrombin [facility] time (PT) {seconds 11.30 to non-numeric time (PT) Health } seconds results) System INR in Blood 1.02 0.70 - Normal (applies INR Result [facility] by Coagulation {Ratio} 1.10 to non-numeric Health assay Ratio results) System Normal = 0.7-1.1Therapeutic = 2.0-3.0Mec hanical Heart = 3.0-4.5 ID Date Data Source [id number] 04/29/2018 05:00:00 PM EST [facility] System Name Value Range Interpretation Description Data Sup porting Code Source(s) Document(s ) Leukocytes 8.6 4.8 - Normal (applies WBC Count [facility] [#/volume] in {10^3_u 10.8 to non-numeric Health Unspecified L} 10^3 uL results) System specimen by Automated count Erythrocytes 2.91 3.80 - Below low normal RBC Count [facility] [#/volume] in {10^6_u 5.20 Health Blood by L} 10^6 uL System Automated count Hemoglobin 8.0 12.0 - Below low normal Hemoglobin [facility] [Mass/volume] in {gm/dL} 16.0 Health Blood gm/dL System Hematocrit 25.0 % 36.0 - Below low normal Hematocrit [facility] [Volume 46.0 % Health Fraction] of System Blood Erythrocyte mean 85.9 fl 83.0 - Normal (applies MCV [facility] corpuscular 98.0 fl to non-numeric Health volume [Entitic results) System volume] by Automated count Erythrocyte mean 27.5 pg 26.0 - Normal (applies MCH [facility] corpuscular 34.0 pg to non-numeric Health hemoglobin results) System [Entitic mass] by Automated count Erythrocyte mean 32.0 33.0 - Below low normal MCHC [facility] corpuscular {gm/dL} 37.0 Health hemoglobin gm/dL System concentration [Mass/volume] by Automated count Erythrocyte 18.3 % 11.5 - Above high RDW-CV [facility] distribution 14.5 % normal Health width [Entitic System volume] by Automated count Platelets 253 130 - Normal (applies Platelet Count [facility] [#/volume] in {10^3_u 400 to non-numeric Health Plasma by L} 10^3 uL results) System Automated count Platelet mean 10.5 fl 7.4 - Above high MPV [facility] volume [Entitic 10.4 fl normal Health volume] in Blood System by Automated count Monocytes 0.5 0.3 - Normal (applies Monocyte # [facility] [#/volume] in {10^3_u 0.9 to non-numeric Health Blood by Manual L} 10^3 uL results) System count Eosinophils 0.08 0.05 - Normal (applies Eosinophil # [facility] [#/volume] in {10^3_u 0.30 to non-numeric Health Blood L} 10^3 uL results) System Neutrophils 5.1 2.0 - Normal (applies Neutrophil # [facility] [#/volume] in {10^3_u 8.1 to non-numeric Health Body fluid L} 10^3 uL results) System Basophils 0.03 0.00 - Normal (applies Basophil # [facility] [#/volume] in {10^3_u 0.10 to non-numeric Health Blood by L} 10^3 uL results) System Automated count Lymphocyte # 2.9 1.0 - Normal (applies Lymphocyte # [facility] {10^3_u 5.5 to non-numeric Health L} 10^3 uL results) System Neutrophils/100 59.1 % 55.0 - Normal (applies Neutrophil % [place] grace leukocytes in 75.0 % to non-numeric Health Blood by results) System Automated count Monocytes/100 6.0 % 6.0 - Normal (applies Monocyte % [facility] leukocytes in 9.0 % to non-numeric Health Blood results) System Eosinophils/100 0.9 % 0.0 - Normal (applies Eosinophil % [place] grace leukocytes in 4.0 % to non-numeric Health Unspecified results) System specimen Basophils/100 0.3 % 0.0 - Normal (applies Basophil % [facility] leukocytes in 1.0 % to non-numeric Health Unspecified results) System specimen by Manual count Lymphocytes 33.2 % 21.0 - Normal (applies Lymphocyte % [facility] [#/volume] in 51.0 % to non-numeric Health Blood by results) System Automated count Immature 0.5 % 0.0 - Normal (applies Immature [facility] Granulocytes % 0.8 % to non-numeric Granulocytes % Healt h results) System Nucleated 0.0 0.0 - Normal (applies NRBC % [facility] erythrocytes {/100_W 0.0 to non-numeric Health [#/volume] in BC} /100 results) System Body fluid WBC Immature 0.04 0.00 - Normal (applies Immature [facility] Granulocytes # {10^3_u 0.09 to non-numeric Granulocytes # Healt h L} 10^3 uL results) System NRBC # 0.00 0.90 - Below low normal NRBC # [facility] {10^3_u 11.20 Health L} 10^3 uL System ID Date Data Source [id number] 04/29/2018 05:00:00 PM EST [facility] System Name Value Range Interpretation Description Data Sup porting Code Source(s) Document(s ) Sodium 136 137 - Below low normal Sodium, Serum [facility] [Moles/volume] in mmol/L 145 Health Serum or Plasma mmol/L System Potassium 4.3 3.6 - Normal (applies Potassium, [facility] [Mass/volume] in mmol/L 5.0 to non-numeric Serum Health Serum or Plasma mmol/L results) System Chloride 111 98 - Above high Chloride, [facility] [Moles/volume] in mmol/L 107 normal Serum Health Serum or Plasma mmol/L System Carbon dioxide, 18.0 22.0 - Below low normal CO2, Serum [facility] total mmol/L 30.0 Health [Moles/volume] in mmol/L System Serum or Plasma Total Protein 6.6 6.3 - Normal (applies Total Protein [facility] mg/dl 8.2 to non-numeric Health mg/dl results) System Glucose 189 65 - Above high Glucose, [facility] [Mass/volume] in mg/dL 105 normal Serum Health Serum or Plasma mg/dL System Urea nitrogen 59 7 - 18 Above high Blood Urea [facility] [Mass/volume] in mg/dl mg/dl normal Nitrogen, Health Serum or Plasma Serum System Creatinine 2.00 0.70 - Above high Creatinine, [facility] [Mass/volume] in mg/dl 1.20 normal Serum Health Serum or Plasma mg/dl System Alkaline 71 38 - Normal (applies Alkaline [facility] phosphatase {IU/L} 126 to non-numeric Phosphatase, Health isoenzymes IU/L results) Serum System [Enzymatic activity/volume] in Serum or Plasma by Heat stability Bilirubin.total 0.5 0.2 - Normal (applies Bilirubin, [facility] [Mass/volume] in mg/dl 1.3 to non-numeric Serum Total Health Serum or Plasma mg/dl results) System Direct Bilirubin 0.2 0.0 - Normal (applies Direct [facility] mg/dl 0.4 to non-numeric Bilirubin [facility] mg/dl results) System Aspartate 29 5 - 40 Normal (applies Aspartate [facility] aminotransferase {IU/L} IU/L to non-numeric Transaminase, Heal th [Enzymatic results) Serum System activity/volume] in Serum or Plasma by With P-5'-P Albumin 3.4 3.9 - Below low normal Albumin, [facility] [Mass/volume] in {gm/dl} 5.0 Serum Health Serum or Plasma gm/dl System I. Phosphorus 4.3 2.5 - Normal (applies I. Phosphorus [facility] mg/dl 4.5 to non-numeric Health mg/dl results) System Alanine 47 7 - 56 Normal (applies Alanine [facility] aminotransferase {IU/L} IU/L to non-numeric Aminotransfer [facility]al [facility] [Enzymatic results) ase, Serum System activity/volume] in Serum or Plasma Calcium 8.5 8.4 - Normal (applies Calcium, [facility] [Mass/volume] in mg/dl 10.2 to non-numeric Total Serum Health Serum or Plasma mg/dl results) System A/G Ratio 1.06 Normal (applies A/G Ratio [facility] to non-numeric Health results) System Urate 6.0 2.5 - Normal (applies Uric Acid, [facility] [Mass/volume] in mg/dl 7.5 to non-numeric Serum Health Serum or Plasma mg/dl results) System Anion gap in Serum 7.00 8.00 - Below low normal Anion Gap [facility] or Plasma mmol/L 12.00 Health mmol/L System Glomerular 25.12 Normal (applies GFR [facility] filtration to non-numeric Health rate/1.73 sq results) System M.predicted [Volume Rate/Area] in Serum or Plasma by Creatinine-based formula (CKD-EPI) eGFR will provide clinicians with a more accurate indicator of renal function then the serum creatinine. The eGFR is automa tically calculated from an empiric formula (endorsed by the [employer]) which incorporates age, sex, and race.Clinicians may notice surprisingly low GFR's with serum creatinine valueswithin normal range- particularly in elderly wo men (with low muscle mass).In the hospital setting, the eGFR should add an element of safety in drug dosing, in assessing the risk of IV contrast administration, and in assessing vascular risk.The NKF staging system is as follows:Normal: eGFR >90 with no kidney markersStage 1: eGFR >90 with kidney markers*Stage 2: eGFR 60- 89Stage 3: eGFR 30-59Stage 4: eGFR 15-29Stage 5: eGFR <15 (usually requir ing dialysis)*Markers include: Proteinuria, Hematuria, abnormal imaging-studies, or other blood or urine test abnormalities ID Date Data Source [id number] 04/28/2018 09:53:00 PM EST [facility] Name Value Range Interpretation Description Data Sup porting Code Source(s) Document(s ) Type B Normal (applies Type [facility] to non-numeric Health System results) D Ab [Titer] Positive Normal (applies Rh [facility] in Serum or to non-numeric Health System Plasma results) Antibody Negative Normal (applies Antibody [facility] Screen to non-numeric Screen Health System results) ID Date Data Source [id number] 04/28/2018 08:05:00 PM [facility] Chest radiographCLINICAL INFORMATION: Co ugh.TECHNIQUE: Frontal view of the chest were obtained.FINDINGS: Correlation is made with a prior study done on 04/08/2018.The cardiomediastinal silhoue tte appears to be stable. The pulmonary vasculature is within normal limits. Th ere is no evidence of acute infiltrate. The bilateral costophrenic angles are sharp. Again noted are mild bibasilar subsegmental atelectasis versus linear scarring. The visualized bony thoracic cage appears intact. Again noted are multiple remote healed left-sided rib fractures. Again noted is a left-sided cardiac pacing dev ice in place.IMPRESSION: No evidence of acute pulmonary disease.Mild bibasilar s ubsegmental atelectasis versus linear scarring.Stable left-sided cardiac pacin g device in place.No significant change compared to prior study done on 04/08/19 19. Name Value Range Interpretation Code Description Data Nyla rce(s) Supporting Document(s ) ID Date Data Source [id number] 04/28/2018 08:05:00 PM [facility] [address] cervical spine without IV contrastCLI NICAL INFORMATION: Trauma. Contusion. Neck pain. Initial encounter. Fall.TECHNIQU E: Contiguous axial 2.5mm sections were obtained through the cervical spine usin g a single helical acquisition. Additional sagittal and coronal reconstructions of the spine were obtained. RADIATION DOSE: Automatic exposure control or low dose t echnique with adjustment of the dose based on patient size was utilized. The total DL P for this examination is estimated at 98 mGy-cm.FINDINGS: Correlation is made wit h a prior study done 09/18/2016.Again noted is mild reversal of the normal cervical lordosis, which may be secondary to muscle spasm. The cervical vertebral body heig hts and alignment are maintained. There is no evidence of acute bony fracture or de structive bony lesion. The visualized facets appear intact and aligned.Again noted is degenerative disc disease at the C5/6 level. The remaining cervical intervertebral d isk spaces appear preserved.Again noted are moderate hypertrophic changes involving lower cervical spine resulting in multilevel foraminal narrowing without evidence of high grade central canal stenosis.The skull base appears intact. No neck mass is re cognized. Paraspinal soft tissues appear intact. Visualized lymph nodes appear t o be within physiologic size limits.IMPRESSION: No evidence of acute bony fracture or subluxation.Stable moderate degenerative spondylosis of the lower ce rvical spine resulting in multilevel foraminal narrowing without evidence of high grade central canal stenosis.Stable mild reversal of the normal cervical lordosis , which may be secondary to muscle spasm.No significant change compared to prior marie dy done 09/18/2016. Name Value Range Interpretation Code Description Data Nyla rce(s) Supporting Document(s ) ID Date Data Source [id number] 04/28/2018 08:05:[address] PM [facility] [address] head without IV contrastCLINICAL INFO RMATION: Trauma. Contusion. Headache. Initial encounter. Fall.TECHNIQUE: Con tiguous axial 5 mm sections were obtained through the head. RADIATION DOSE: Autom atic exposure control or low dose technique with adjustment of the dose based on pat ient size was utilized. The total DLP for this examination is estimated at 1020 mG y-cm.FINDINGS: Correlation is made with a prior study done on 04/08/2018.Again not ed is moderate dilatation of the ventricles and sulci noted, greater than expected f or patient's stated age compatible with moderate parenchymal volume loss. Again noted are moderate periventricular and subcortical white matter lucencies noted , compatible with moderate chronic microvascular ischemic changes. 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 Again n oted are multiple focal lucencies involving the bilateral basal ganglia and bilatera l cerebellar hemispheres. Again noted are mild atherosclerotic calcifications invo lving the bilateral cavernous internal carotid arteries noted. There is no chiquita dence of acute intracranial hemorrhage, mass-effect, midline shift or extra-axia l fluid collection. There is no definite evidence of acute territorial infarct.Th e visualized orbits again demonstrate a remote healed left lamina papyracea frac ture. There is also a remote healed left zygomatic arch fracture noted. The visu alized paranasal sinuses and mastoid air cells appear clear. The visualized calv arium appears intact.IMPRESSION: No evidence of acute intracranial hemorrhage, mass e ffect, midline shift or definite acute territorial infarct.Stable moderate pare nchymal volume loss, with moderate chronic microvascular ischemic changes as well a s multiple remote infarcts as described above.Stable mild intracranial atheroscl erosis as described above.Stable multiple remote healed facial bone fractures as d escribed above.No significant change compared prior study done 04/08/2018. Name Value Range Interpretation Code Description Data Nyla rce(s) Supporting Document(s ) ID Date Data Source [id number] 04/28/2018 07:51:00 PM EST [facility] Name Value Range Interpretation Description Data Sup porting Code Source(s) Document(s ) Color YELLOW Yellow Normal (applies Color [facility] to non-numeric Health results) System Appearance of SL CLOUDY Clear Normal (applies Urine [facility] Urine to non-numeric Appearance Health results) System Specific 1.010 1.001 - Normal (applies Urine Specific [facility] gravity of 1.035 to non-numeric [facility] Urine results) System pH.. 6.0 4.6 - 8.0 Normal (applies pH.. [facility] {pH_units} pH units to non-numeric Health results) System Glucose, UA NEGATIVE < 50 Normal (applies Glucose, UA [facility] mg/dl to non-numeric Health results) System Protein TRACE < 30 Normal (applies Protein [facility] [Mass/volume] mg/dl to non-numeric Health in Serum or results) System Plasma Bilirubin NEGATIVE Negative Normal (applies Bilirubin [facility] Urine Sm to Lg to non-numeric Urine Health results) System Urobilinogen 0.2 mg/dL 0.2 - 1.0 Normal (applies Urobilinogen [facility] [Mass/volume] mg/dL to non-numeric UA [facility] in Urine results) System Ketones NEGATIVE Negative Normal (applies Ketones UA [facility] [Mass/volume] mg/dL to non-numeric Health in Urine results) System Nitrate+Nitrit POSITIVE Negative Abnormal Nitrite [facility] e Neg/Pos (applies to Health [Mass/volume] non-numeric System in Unspecified results) specimen Leukocyte SMALL Negative Abnormal Leukocyte [facility] esterase Tr to Lg (applies to Esterase Health [Units/volume] non-numeric Concentration System in Urine results) Leukocytes 9 {/HPF} 0 - 2 Normal (applies White Blood [facility] [#/volume] in /HPF to non-numeric Cells Health Unspecified results) System specimen by Automated count Red Blood 2 {/HPF} 0 - 1 Normal (applies Red Blood [facility] Cells /HPF to non-numeric Cells Health results) System Epithelial 8 {/HPF} 0 - 3 Normal (applies Epithelial [facility] cells /HPF to non-numeric Cells Health [Presence] in results) System Unspecified specimen by Wet preparation Bacteria 4+ 0 - 1+ Abnormal Bacteria [facility] [Presence] in /HPF (applies to Health Unspecified non-numeric System specimen results) Urine Blood NEGATIVE Negative Normal (applies Urine Blood [facility] Sm to Lg to non-numeric Health results) System ID Date Data Source [id number] 04/28/2018 07:51:00 PM EST [facility] Name Value Range Interpretation Description Data Sup porting Code Source(s) Document(s ) Leukocytes 9.9 4.8 - Normal (applies WBC Count [facility] [#/volume] in {10^3_uL 10.8 to non-numeric Health Unspecified } 10^3 uL results) System specimen by Automated count Erythrocytes 1.88 3.80 - Below low normal RBC Count [facility] [#/volume] in {10^6_uL 5.20 Health Blood by } 10^6 uL System Automated count Hemoglobin 5.1 12.0 - Below lower panic Hemoglobin [facility] [Mass/volume] {gm/dL} 16.0 limits Health in Blood gm/dL System Result Reporting|Telephone|Lizette Muniz (R N)| 04/28/2018 at 9:22 PMCalled to:Lizette Vinson Name:Alexandrea Gardner by :Lizette Muniz 04/28/2018 / 9:21 PM Hematocrit [Volume 16.4 % 36.0 - 46.0 % Below lower Hematocrit [facility] Fraction] of Blood panic limits System Result Reporting|Telephone|Lizette Muniz (R N)| 04/28/2018 at 9:22 PMCalled to:Lizette MunizTech Name:Alexandrea Gardner by :Lizette Muniz 04/28/2018 / 9:21 PM Erythrocyte mean 87.2 fl 83.0 - Normal (applies MCV [facility] corpuscular volume 98.0 fl to non-numeric Health System [Entitic volume] results) by Automated count Erythrocyte mean 27.1 pg 26.0 - Normal (applies MCH [facility] corpuscular 34.0 pg to non-numeric Health System hemoglobin results) [Entitic mass] by Automated count Erythrocyte mean 31.1 33.0 - Below low normal MCHC [facility] corpuscular {gm/dL} 37.0 Health System hemoglobin gm/dL concentration [Mass/volume] by Automated count Erythrocyte 21.2 % 11.5 - Above high RDW-CV [facility] distribution width 14.5 % normal Health Syst em [Entitic volume] by Automated count Platelets 271 130 - 400 Normal (applies Platelet Count [facility] [#/volume] in {10^3_uL} 10^3 uL to non-numeric Health Syst em Plasma by results) Automated count Platelet mean 10.4 fl 7.4 - Normal (applies MPV [facility] volume [Entitic 10.4 fl to non-numeric Health Sy stem volume] in Blood results) by Automated count Monocytes 0.5 0.3 - 0.9 Normal (applies Monocyte # [facility] [#/volume] in {10^3_uL} 10^3 uL to non-numeric Health Syst em Blood by Manual results) count Eosinophils 0.04 0.05 - Below low normal Eosinophil # [facility] [#/volume] in {10^3_uL} 0.30 10^3 Health System Blood uL Neutrophils 6.8 2.0 - 8.1 Normal (applies Neutrophil # [facility] [#/volume] in Body {10^3_uL} 10^3 uL to non-numeric Health System fluid results) Basophils 0.01 0.00 - Normal (applies Basophil # [facility] [#/volume] in {10^3_uL} 0.10 10^3 to non-numeric Health Syst em Blood by Automated uL results) count Lymphocyte # 2.6 1.0 - 5.5 Normal (applies Lymphocyte # [facility] {10^3_uL} 10^3 uL to non-numeric Health System results) Neutrophils/100 68.6 % 55.0 - Normal (applies Neutrophil % [facility] leukocytes in 75.0 % to non-numeric Health Syst em Blood by Automated results) count Monocytes/100 4.7 % 6.0 - 9.0 Below low normal Monocyte % [facility] leukocytes in % [facility] System Blood Eosinophils/100 0.4 % 0.0 - 4.0 Normal (applies Eosinophil % [facility] leukocytes in % to non-numeric Health Syst em Unspecified results) specimen Basophils/100 0.1 % 0.0 - 1.0 Normal (applies Basophil % [facility] leukocytes in % to non-numeric Health Syst em Unspecified results) specimen by Manual count Lymphocytes 25.7 % 21.0 - Normal (applies Lymphocyte % [facility] [#/volume] in 51.0 % to non-numeric Health Syst em Blood by Automated results) count Immature 0.5 % 0.0 - 0.8 Normal (applies Immature [facility] Granulocytes % % to non-numeric Granulocytes % Healt h System results) Nucleated 0.0 0.0 - 0.0 Normal (applies NRBC % [facility] erythrocytes {/100_WBC /100 WBC to non-numeric Health Syste m [#/volume] in Body } results) fluid Immature 0.05 0.00 - Normal (applies Immature [facility] Granulocytes # {10^3_uL} 0.09 10^3 to non-numeric Granulocytes # Healt h System uL results) NRBC # 0.00 0.90 - Below low normal NRBC # [facility] {10^3_uL} 11.20 Health System 10^3 uL ID Date Data Source [id number] 04/28/2018 07:51:00 PM EST [facility] Name Value Range Interpretation Description Data Sup porting Code Source(s) Document(s ) Sodium 137 137 - Normal (applies Sodium, Serum [facility] [Moles/volume] in mmol/L 145 to non-numeric Health Serum or Plasma mmol/L results) System Potassium 4.3 3.6 - Normal (applies Potassium, [facility] [Mass/volume] in mmol/L 5.0 to non-numeric Serum Health Serum or Plasma mmol/L results) System Chloride 109 98 - Above high Chloride, [facility] [Moles/volume] in mmol/L 107 normal Serum Health Serum or Plasma mmol/L System Carbon dioxide, 17.0 22.0 - Below low normal CO2, Serum [facility] total mmol/L 30.0 Health [Moles/volume] in mmol/L System Serum or Plasma Total Protein 7.0 6.3 - Normal (applies Total Protein [facility] mg/dl 8.2 to non-numeric Health mg/dl results) System Glucose 173 65 - Above high Glucose, [facility] [Mass/volume] in mg/dL 105 normal Serum [facility] Serum or Plasma mg/dL System Urea nitrogen 60 7 - 18 Above high Blood Urea [facility] [Mass/volume] in mg/dl mg/dl normal Nitrogen, Health Serum or Plasma Serum System Creatinine 1.90 0.70 - Above high Creatinine, [facility] [Mass/volume] in mg/dl 1.20 normal Serum [facility] Serum or Plasma mg/dl System Alkaline 82 38 - Normal (applies Alkaline [facility] phosphatase {IU/L} 126 to non-numeric Phosphatase, Health isoenzymes IU/L results) Serum System [Enzymatic activity/volume] in Serum or Plasma by Heat stability Bilirubin.total 0.2 0.2 - Normal (applies Bilirubin, [facility] [Mass/volume] in mg/dl 1.3 to non-numeric Serum Total Health Serum or Plasma mg/dl results) System Direct Bilirubin 0.1 0.0 - Normal (applies Direct [facility] mg/dl 0.4 to non-numeric Bilirubin [facility] mg/dl results) System Aspartate 39 5 - 40 Normal (applies Aspartate [facility] aminotransferase {IU/L} IU/L to non-numeric Transaminase, Heal th [Enzymatic results) Serum System activity/volume] in Serum or Plasma by With P-5'-P Albumin 3.8 3.9 - Below low normal Albumin, [facility] [Mass/volume] in {gm/dl} 5.0 Serum Health Serum or Plasma gm/dl System I. Phosphorus 4.5 2.5 - Normal (applies I. Phosphorus [facility] mg/dl 4.5 to non-numeric Health mg/dl results) System Alanine 67 7 - 56 Above high Alanine [facility] aminotransferase {IU/L} IU/L normal Aminotransfer Health [Enzymatic ase, Serum System activity/volume] in Serum or Plasma Calcium 8.9 8.4 - Normal (applies Calcium, [facility] [Mass/volume] in mg/dl 10.2 to non-numeric Total Serum Health Serum or Plasma mg/dl results) System A/G Ratio 1.19 Normal (applies A/G Ratio [facility] to non-numeric Health results) System Urate 6.1 2.5 - Normal (applies Uric Acid, [facility] [Mass/volume] in mg/dl 7.5 to non-numeric Serum Health Serum or Plasma mg/dl results) System Anion gap in Serum 11.00 8.00 - Normal (applies Anion Gap [facility] or Plasma mmol/L 12.00 to non-numeric Health mmol/L results) System Glomerular 26.65 Normal (applies GFR [facility] filtration to non-numeric Health rate/1.73 sq results) System M.predicted [Volume Rate/Area] in Serum or Plasma by Creatinine-based formula (CKD-EPI) eGFR will provide clinicians with a more accurate indicator of renal function then the serum creatinine. The eGFR is automa tically calculated from an empiric formula (endorsed by the [employer] ion) which incorporates age, sex, and race.Clinicians may notice surprisingly low GFR's with serum creatinine valueswithin normal range- particularly in elderly wo men (with low muscle mass).In the hospital setting, the eGFR should add an element of safety in drug dosing, in assessing the risk of IV contrast administration, and in assessing vascular risk.The NKF staging system is as follows:Normal: eGFR >90 with no kidney markersStage 1: eGFR >90 with kidney markers*Stage 2: eGFR 60- 89Stage 3: eGFR 30-59Stage 4: eGFR 15-29Stage 5: eGFR <15 (usually requir ing dialysis)*Markers include: Proteinuria, Hematuria, abnormal imaging-studies, or other blood or urine test abnormalities ID Date Data Source [id number] 04/28/2018 07:51:00 PM EST [facility] System Name Value Range Interpretation Description Data Sup porting Code Source(s) Document(s ) Alcohol none Normal (applies Alcohol Ethyl, [facility] Ethyl, detected to non-numeric Blood Health System Blood None results) Detected ID Date Data Source [id number] 04/28/2018 07:51:00 PM EST [facility] Name Value Range Interpretation Description Data Sup porting Code Source(s) Document(s ) Troponin I 0.01 0.00 - Normal (applies Troponin I [facility] Quantitative - ng/mL 0.04 to non-numeric Quantitative - Healt h MV Only ng/mL results) MV Only System ID Date Data Source [id number] 04/05/2018 04:55:00 PM EST [facility] Name Value Range Interpretation Description Data Sup porting Code Source(s) Document(s ) Sodium 135 135 - Normal (applies Sodium, Serum [facility] [Moles/volume] in mmol/L 145 to non-numeric Health Serum or Plasma mmol/L results) System Potassium 4.8 3.5 - Normal (applies Potassium, [facility] [Mass/volume] in mmol/L 5.0 to non-numeric Serum Health Serum or Plasma mmol/L results) System Chloride 106 101 - Normal (applies Chloride, [facility] [Moles/volume] in mmol/L 111 to non-numeric Serum Health Serum or Plasma mmol/L results) System Carbon dioxide, 21.3 21.0 - Normal (applies CO2, Serum [facility] total mmol/L 31.0 to non-numeric Health [Moles/volume] in mmol/L results) System Serum or Plasma Total Protein 7.8 6.4 - Normal (applies Total Protein [facility] mg/dl 8.1 to non-numeric Health mg/dl results) System Glucose 147 65 - Above high Glucose, [facility] [Mass/volume] in mg/dL 110 normal Serum Health Serum or Plasma mg/dL System Urea nitrogen 27 7 - 18 Above high Blood Urea [facility] [Mass/volume] in mg/dl mg/dl normal Nitrogen, Health Serum or Plasma Serum System Creatinine 1.48 0.50 - Above high Creatinine, [facility] [Mass/volume] in mg/dl 1.20 normal Serum Health Serum or Plasma mg/dl System Alkaline 98 42 - Normal (applies Alkaline [facility] phosphatase {IU/L} 121 to non-numeric Phosphatase, Health isoenzymes IU/L results) Serum System [Enzymatic activity/volume] in Serum or Plasma by Heat stability Bilirubin.total 0.2 0.2 - Normal (applies Bilirubin, [facility] [Mass/volume] in mg/dl 1.2 to non-numeric Serum Total Health Serum or Plasma mg/dl results) System Direct Bilirubin 0.0 0.0 - Normal (applies Direct [facility] mg/dl 0.4 to non-numeric Bilirubin Health mg/dl results) System Aspartate 20 10 - 42 Normal (applies Aspartate [facility] aminotransferase {IU/L} IU/L to non-numeric Transaminase, Heal th [Enzymatic results) Serum System activity/volume] in Serum or Plasma by With P-5'-P Albumin 3.7 3.2 - Normal (applies Albumin, [facility] [Mass/volume] in {gm/dl} 5.5 to non-numeric Serum Health Serum or Plasma gm/dl results) System I. Phosphorus 4.0 2.6 - Normal (applies I. Phosphorus [facility] mg/dl 4.9 to non-numeric Health mg/dl results) System Alanine 18 10 - 42 Normal (applies Alanine [facility] aminotransferase {IU/L} IU/L to non-numeric Aminotransfer Heal th [Enzymatic results) ase, Serum System activity/volume] in Serum or Plasma Calcium 8.9 8.4 - Normal (applies Calcium, [facility] [Mass/volume] in mg/dl 10.2 to non-numeric Total Serum Health Serum or Plasma mg/dl results) System A/G Ratio 0.90 Normal (applies A/G Ratio [facility] to non-numeric Health results) System Urate 5.2 2.3 - Normal (applies Uric Acid, [facility] [Mass/volume] in mg/dl 7.5 to non-numeric Serum Health Serum or Plasma mg/dl results) System Anion gap in Serum 7.70 Normal (applies Anion Gap [facility] or Plasma mmol/L to non-numeric Health results) System Glomerular 35.56 Normal (applies GFR [facility] filtration to non-numeric Health rate/1.73 sq results) System M.predicted [Volume Rate/Area] in Serum or Plasma by Creatinine-based formula (CKD-EPI) eGFR will provide clinicians with a more accurate indicator of renal function then the serum creatinine. The eGFR is automa tically calculated from an empiric formula (endorsed by the [employer]) which incorporates age, sex, and race.Clinicians may notice surprisingly low GFR's with serum creatinine valueswithin normal range- particularly in elderly wo men (with low muscle mass).In the hospital setting, the eGFR should add an element of safety in drug dosing, in assessing the risk of IV contrast administration, and in assessing vascular risk.The NKF staging system is as follows:Normal: eGFR >90 with no kidney markersStage 1: eGFR >90 with kidney markers*Stage 2: eGFR 60- 89Stage 3: eGFR 30-59Stage 4: eGFR 15-29Stage 5: eGFR <15 (usually requir ing dialysis)*Markers include: Proteinuria, Hematuria, abnormal imaging-studies, or other blood or urine test abnormalities ID Date Data Source [id number] 04/05/2018 04:55:00 PM [facility] Name Value Range Interpretation Description Data Source(s ) Supporting Code Document(s ) Alcohol < 5 Normal (applies to Alcohol Ethyl, [place] Ethyl, non-numeric Blood [facility] Blood results) Reference Range: None Detected ID Date Data Source Genetics 02/08/2018 06:00:00 AM [facility] Name Value Range Interpretation Code Description Data Nyla rce(s) Supporting Document(s ) UNK 15-57 <content [facility] styleCode="Bold"> Medical Cent er C4, Serum </content>20 mg/dL<content styleCode="Italic s"> (15-57 mg/dL)</content> UNK 83-193 <content [facility] styleCode="Bold"> Medical Cent er C3, Serum </content>103 mg/dL<content styleCode="Italic s"> (83-193 mg/dL)</content> ID Date Data Source HematologyRou 02/04/2018 05:30:00 AM [facility] Name Value Range Interpretation Description Data Sup porting Code Source(s) Document(s ) Leukocytes 4.4-11.0 <content [facility] [#/volume] in styleCode="Bold Shemar Blood by ">White Blood [facility] Automated count Cell Count [place] </content>5.14 KCUMM<content styleCode="Ital ics"> (4.4-11.0 KCUMM)</content > Hemoglobin 12.3-16. Below low normal <content [facility] [Mass/volume] in 0 styleCode="Bold Shemar Blood ">Hemoglobin Medical </content>10.1 Center G/DL L<content styleCode="Ital ics"> (12.3-16.0 G/DL)</content> Erythrocyte mean 80.0-100 <content [facility] corpuscular .0 styleCode="Bold Shemar volume [Entitic ">Mean Medical volume] by Corpuscular Center Automated count Volume </content>87.3 FL<content styleCode="Ital ics"> (80.0-100.0 FL)</content> Erythrocytes 4.0-5.1 Below low normal <content [facility] [#/volume] in styleCode="Bold Shemar Blood by ">Red Blood Medical Automated count Cell Count Center </content>3.46 MCUMM L<content styleCode="Ital ics"> (4.0-5.1 MCUMM)</content > Hematocrit 36.0-46. Below low normal <content [facility] [Volume 0 styleCode="Bold Shemar Fraction] of ">Hematocrit Medical Blood by </content>30.2 Center Automated count % L<content styleCode="Ital ics"> (36.0-46.0 %)</content> Platelets 130-400 <content [facility] [#/volume] in styleCode="Bold Shemar Blood by ">Platelet Medical Automated count Count Center </content>272 KCUMM<content styleCode="Ital ics"> (130-400 KCUMM)</content > Erythrocyte 11.5-14. <content [facility] distribution 5 styleCode="Bold Shemar width [Ratio] by ">Red Cell Medical Automated count Distribution Center Width </content>12.6 %<content styleCode="Ital ics"> (11.5-14.5 %)</content> Erythrocyte mean 32.0-37. <content [facility] corpuscular 0 styleCode="Bold Shemar hemoglobin ">Mean Corpus. Medical concentration Hgb Center [Mass/volume] by Concentration Automated count (MCHC) </content>33.4 G/DL<content styleCode="Ital ics"> (32.0-37.0 G/DL)</content> Erythrocyte mean 26.0-34. <content [facility] corpuscular 0 styleCode="Bold Shemar hemoglobin ">Mean Medical [Entitic mass] Corposcular Center by Automated Hemoglobin count </content>29.2 PG<content styleCode="Ital ics"> (26.0-34.0 PG)</content> UNK 0.0 <content [facility] styleCode="Bold Shemar ">Nucleated Red Medical Blood Cell Center Count </content>0.00 KCUMM<content styleCode="Ital ics"> (0.0 KCUMM)</content > UNK 0 <content [facility] styleCode="Bold Shemar ">Nucleated Red Medical Blood Cell Center </content>0.0 /100<content styleCode="Ital ics"> (0 /100)</content> Platelet mean 8.0-11.0 <content [facility] volume [Entitic styleCode="Bold Shemar volume] in Blood ">Mean Platelet Medical by Automated Volume Center count </content>10.1 FL<content styleCode="Ital ics"> (8.0-11.0 FL)</content> Leukocytes 4.4-11.0 <content [facility] [#/volume] in styleCode="Bold Shemar Blood by ">White Blood Medical Automated count Cell Count Center </content>6.84 KCUMM<content styleCode="Ital ics"> (4.4-11.0 KCUMM)</content > Erythrocyte mean 80.0-100 <content [facility] corpuscular .0 styleCode="Bold Shemar volume [Entitic ">Mean Medical volume] by Corpuscular Center Automated count Volume </content>84.0 FL<content styleCode="Ital ics"> (80.0-100.0 FL)</content> Hematocrit 36.0-46. Below low normal <content [facility] [Volume 0 styleCode="Bold Shemar Fraction] of ">Hematocrit Medical Blood by </content>28.9 Center Automated count % L<content styleCode="Ital ics"> (36.0-46.0 %)</content> Hemoglobin 12.3-16. Below low normal <content [facility] [Mass/volume] in 0 styleCode="Bold Shemar Blood ">Hemoglobin Medical </content>10.1 Center G/DL L<content styleCode="Ital ics"> (12.3-16.0 G/DL)</content> Erythrocytes 4.0-5.1 Below low normal <content [facility] [#/volume] in styleCode="Bold Shemar Blood by ">Red Blood Medical Automated count Cell Count Center </content>3.44 MCUMM L<content styleCode="Ital ics"> (4.0-5.1 MCUMM)</content > Platelets 130-400 <content [facility] [#/volume] in styleCode="Bold Shemar Blood by ">Platelet Medical Automated count Count Center </content>190 KCUMM<content styleCode="Ital ics"> (130-400 KCUMM)</content > Erythrocyte 11.5-14. <content [facility] distribution 5 styleCode="Bold Shemar width [Ratio] by ">Red Cell Medical Automated count Distribution Center Width </content>12.0 %<content styleCode="Ital ics"> (11.5-14.5 %)</content> Erythrocyte mean 32.0-37. <content [facility] corpuscular 0 styleCode="Bold Shemar hemoglobin ">Mean Corpus. Medical concentration Hgb Center [Mass/volume] by Concentration Automated count (MCHC) </content>34.9 G/DL<content styleCode="Ital ics"> (32.0-37.0 G/DL)</content> Erythrocyte mean 26.0-34. <content [facility] corpuscular 0 styleCode="Bold Shemar hemoglobin ">Mean Medical [Entitic mass] Corposcular Center by Automated Hemoglobin count </content>29.4 PG<content styleCode="Ital ics"> (26.0-34.0 PG)</content> UNK 0.0 <content [facility] styleCode="Bold Shemar ">Nucleated Red Medical Blood Cell Center Count </content>0.00 KCUMM<content styleCode="Ital ics"> (0.0 KCUMM)</content > UNK 0 <content [facility] styleCode="Bold Shemar ">Nucleated Red Medical Blood Cell Center </content>0.0 /100<content styleCode="Ital ics"> (0 /100)</content> Platelet mean 8.0-11.0 Above high <content [facility] volume [Entitic normal styleCode="Bold Shemar volume] in Blood ">Mean Platelet Medical by Automated Volume Center count </content>11.9 FL H<content styleCode="Ital ics"> (8.0-11.0 FL)</content> ID Date Data Source GFR(Creatinine) 02/04/2018 05:30:00 AM [facility] Name Value Range Interpretation Code Description Data Nyla rce(s) Supporting Document(s ) UNK > 60 Below low normal <content [facility] [place] styleCode="Bold"> Medical Cent er EGFR </content>45 GFR L<content styleCode="Italic s"> (> 60 GFR)</content> UNK > 60 Below low normal <content [facility] styleCode="Bold"> Medical Cent er EGFR </content>45 GFR L<content styleCode="Italic s"> (> 60 GFR)</content> ID Date Data Source Coagulation Rout 02/04/2018 05:30:00 AM [facility] Name Value Range Interpretation Description Data Sup porting Code Source(s) Document(s ) UNK 9.0-13.0 <content [facility] styleCode="Bold" Shemar >Protime Medical </content>10.8 Center SEC<content styleCode="Itali cs"> (9.0-13.0 SEC)</content> aPTT in 25.1-36. <content [facility] Platelet poor 5 styleCode="Bold" Shemar plasma by >Partial Medical Coagulation Thromboplastin Center assay Time </content>34.6 SEC<content styleCode="Itali cs"> (25.1-36.5 SEC)</content> INR in 0.80-1.2 <content [facility] Platelet poor 0 styleCode="Bold" Shemar plasma by >INR Medical Coagulation </content>0.96 Center assay #<content styleCode="Itali cs"> (0.80-1.20 #)</content> UNK 9.0-13.0 <content [facility] styleCode="Bold" Shemar >Protime Medical </content>11.6 Center SEC<content styleCode="Itali cs"> (9.0-13.0 SEC)</content> aPTT in 25.1-36. <content [facility] Platelet poor 5 styleCode="Bold" Shemar plasma by >Partial Medical Coagulation Thromboplastin Center assay Time </content>26.8 SEC<content styleCode="Itali cs"> (25.1-36.5 SEC)</content> INR in 0.80-1.2 <content [facility] Platelet poor 0 styleCode="Bold" Shemar plasma by >INR Medical Coagulation </content>1.03 Center assay #<content styleCode="Itali cs"> (0.80-1.20 #)</content> ID Date Data Source CHMROUTINECCDA 02/04/2018 05:30:00 AM EST [facility] Name Value Range Interpretation Description Data Sup porting Code Source(s) Document(s ) Magnesium 1.6-2.3 Below low normal <content [facility] [Mass/volume] styleCode="[place] in Serum or d">Magnesium Medical Plasma </content>1.4 Center MG/DL L<content styleCode="Iman lics"> (1.6-2.3 MG/DL)</conten t> Phosphate 2.5-4.5 <content [facility] [Mass/volume] styleCode="[place] in Serum or d">Phosphorus Medical Plasma </content>4.5 Center MG/DL<content styleCode="Iman lics"> (2.5-4.5 MG/DL)</conten t> Lactate 0.7-2.0 <content [facility] [Mass/volume] styleCode="David Lopezs in Serum or d">Lactic Acid Medical Plasma </content>1.7 Center MMOLL<content styleCode="Iman lics"> (0.7-2.0 MMOLL)</conten t> UNK 2.3-3.5 Above high normal <content [facility] styleCode="David Lopezs d">Globulin Medical </content>3.6 Center G/DL H<content styleCode="Iman lics"> (2.3-3.5 G/DL)</content > UNK >= 1.0 <content [facility] styleCode="David Lopezs d">AG Ratio Medical </content>1.0 Center NM<content styleCode="Iman lics"> (>= 1.0 NM)</content> Protein 6.3-8.2 <content [facility] [Mass/volume] styleCode="David Shemar in Serum or d">Total Medical Plasma Protein Center </content>7.2 G/DL<content styleCode="Iman lics"> (6.3-8.2 G/DL)</content > Phosphate 2.5-4.5 <content [facility] [Mass/volume] styleCode="David Shemar in Serum or d">Phosphorus Medical Plasma </content>2.9 Center MG/DL<content styleCode="Iman lics"> (2.5-4.5 MG/DL)</conten t> Magnesium 1.6-2.3 Below low normal <content [facility] [Mass/volume] styleCode="David Shemar in Serum or d">Magnesium Medical Plasma </content>1.5 Center MG/DL L<content styleCode="Iman lics"> (1.6-2.3 MG/DL)</conten t> ID Date Data Source CardiacMarkers 02/04/2018 05:30:00 AM [facility] Name Value Range Interpretation Description Data Sup porting Code Source(s) Document(s ) Troponin 0-0.034 <content [facility] I.cardiac styleCode="Bold Shemar [Mass/volume ">Troponin I Medical ] in Serum </content>0.019 Center or Plasma NG/ML<content styleCode="Ital ics"> (0-0.034 NG/ML)</content > Creatine 30-135 <content [facility] kinase styleCode="Bold Shemar [Enzymatic ">CK Medical activity/vol </content>69 Center ume] in IU/L<content Serum or styleCode="Ital Plasma ics"> (30-135 IU/L)</content> ID Date Data Source BMP 02/04/2018 05:30:00 AM [facility] Name Value Range Interpretation Description Data Sup porting Code Source(s) Document(s ) Sodium 137-145 <content [facility] [Moles/volume] in styleCode="Bold"> [facility] Serum or Plasma Sodium Medical </content>140 Center MEQ/L<content styleCode="Italic s"> (137-145 MEQ/L)</content> Chloride 98-107 <content [facility] [Moles/volume] in styleCode="Bold"> [facility] Serum or Plasma Chloride Medical </content>107 Center MEQ/L<content styleCode="Italic s"> (98-107 MEQ/L)</content> Potassium 3.5-5.3 <content [facility] [Moles/volume] in styleCode="Bold"> [facility] Serum or Plasma Potassium Medical </content>4.2 Center MEQ/L<content styleCode="Italic s"> (3.5-5.3 MEQ/L)</content> Carbon dioxide, 22-30 <content [facility] total styleCode="Bold"> Shemar [Moles/volume] in Carbon Dioxide Medical Serum or Plasma </content>22 Center MEQ/L<content styleCode="Italic s"> (22-30 MEQ/L)</content> UNK 7-17 Above high <content [facility] normal styleCode="Bold"> Shemar BUN </content>18 Medical MG/DL H<content Center styleCode="Italic s"> (7-17 MG/DL)</content> Creatinine 0.5-1.3 Above high <content [facility] [Mass/volume] in normal styleCode="Bold"> Noel hs Serum or Plasma Creatinine Medical </content>1.5 Center MG/DL H<content styleCode="Italic s"> (0.5-1.3 MG/DL)</content> UNK > 60 Below low <content [facility] normal styleCode="Bold"> Shemar EGFR </content>45 Medical GFR L<content Center styleCode="Italic s"> (> 60 GFR)</content> Calcium 8.4-10. <content [facility] [Mass/volume] in 2 styleCode="Bold"> Noel hs Serum or Plasma Calcium Medical </content>9.1 Center MG/DL<content styleCode="Italic s"> (8.4-10.2 MG/DL)</content> Glucose 74-106 Above high <content [facility] [Mass/volume] in normal styleCode="Bold"> Noel hs Serum or Plasma Glucose Medical </content>148 Center MG/DL H<content styleCode="Italic s"> (74-106 MG/DL)</content> Chloride 98-107 Above high <content [facility] [Moles/volume] in normal styleCode="Bold"> [facility] Serum or Plasma Chloride Medical </content>111 Center MEQ/L H<content styleCode="Italic s"> (98-107 MEQ/L)</content> Potassium 3.5-5.3 <content [facility] [Moles/volume] in styleCode="Bold"> [facility] Serum or Plasma Potassium Medical </content>3.7 Center MEQ/L<content styleCode="Italic s"> (3.5-5.3 MEQ/L)</content> Sodium 137-145 <content [facility] [Moles/volume] in styleCode="Bold"> [facility] Serum or Plasma Sodium Medical </content>141 Center MEQ/L<content styleCode="Italic s"> (137-145 MEQ/L)</content> Glucose 74-106 Above high <content [facility] [Mass/volume] in normal styleCode="Bold"> Noel hs Serum or Plasma Glucose Medical </content>169 Center MG/DL H<content styleCode="Italic s"> (74-106 MG/DL)</content> Creatinine 0.5-1.3 Above high <content [facility] [Mass/volume] in normal styleCode="Bold"> Noel hs Serum or Plasma Creatinine Medical </content>1.5 Center MG/DL H<content styleCode="Italic s"> (0.5-1.3 MG/DL)</content> UNK 7-17 <content [facility] styleCode="Bold"> Shemar BUN </content>15 Medical MG/DL<content Center styleCode="Italic s"> (7-17 MG/DL)</content> Carbon dioxide, 22-30 Below low <content [facility] total normal styleCode="Bold"> Shemar [Moles/volume] in Carbon Dioxide Medical Serum or Plasma </content>21 Center MEQ/L L<content styleCode="Italic s"> (22-30 MEQ/L)</content> Alanine 7-30 Above high <content [facility] aminotransferase normal styleCode="Bold"> Noel hs [Enzymatic Alanine Medical activity/volume] Aminotransferase Center in Serum or Plasma (ALT) </content>50 IU/L H<content styleCode="Italic s"> (7-30 IU/L)</content> Aspartate 14-36 Above high <content [facility] aminotransferase normal styleCode="Bold"> Noel hs [Enzymatic Aspartate Medical activity/volume] Aminotransferase Center in Serum or Plasma (AST) </content>52 IU/L H<content styleCode="Italic s"> (14-36 IU/L)</content> UNK > 60 Below low <content [facility] normal styleCode="Bold"> Shemar EGFR </content>45 Medical GFR L<content Center styleCode="Italic s"> (> 60 GFR)</content> Calcium 8.4-10. <content [facility] [Mass/volume] in 2 styleCode="Bold"> Noel hs Serum or Plasma Calcium Medical </content>9.0 Center MG/DL<content styleCode="Italic s"> (8.4-10.2 MG/DL)</content> Albumin 3.5-5.0 <content [facility] [Mass/volume] in styleCode="Bold"> Noel hs Serum or Plasma Albumin Medical </content>3.6 Center G/DL<content styleCode="Italic s"> (3.5-5.0 G/DL)</content> Bilirubin.total 0.2-1.3 <content [facility] [Mass/volume] in styleCode="Bold"> Noel hs Serum or Plasma Bilirubin Total Medical </content>0.4 Center MG/DL<content styleCode="Italic s"> (0.2-1.3 MG/DL)</content> Alkaline 38-126 <content [facility] phosphatase styleCode="Bold"> Shemar [Enzymatic Alkaline Medical activity/volume] Phosphatase (ALP) Cente r in Serum or Plasma </content>91 IU/L<content styleCode="Italic s"> (38-126 IU/L)</content> ID Date Data Source Liver Profile 02/04/2018 05:30:00 AM EST [facility] Name Value Range Interpretation Description Data Sup porting Code Source(s) Document(s ) Aspartate 14-36 <content [facility] aminotransferase styleCode="Bold"> Noel hs [Enzymatic Aspartate Medical activity/volume] Aminotransferase Center in Serum or Plasma (AST) </content>32 IU/L<content styleCode="Italic s"> (14-36 IU/L)</content> Bilirubin.total 0.2-1.3 <content [facility] [Mass/volume] in styleCode="Bold"> Noel hs Serum or Plasma Bilirubin Total Medical </content>0.3 Center MG/DL<content styleCode="Italic s"> (0.2-1.3 MG/DL)</content> Alkaline 38-126 <content [facility] phosphatase styleCode="Bold"> Shemar [Enzymatic Alkaline Medical activity/volume] Phosphatase (ALP) Cente r in Serum or Plasma </content>113 IU/L<content styleCode="Italic s"> (38-126 IU/L)</content> Alanine 7-30 <content [facility] aminotransferase styleCode="Bold"> Noel hs [Enzymatic Alanine Medical activity/volume] Aminotransferase Center in Serum or Plasma (ALT) </content>23 IU/L<content styleCode="Italic s"> (7-30 IU/L)</content> Albumin 3.5-5.0 <content [facility] [Mass/volume] in styleCode="Bold"> Noel hs Serum or Plasma Albumin Medical </content>3.6 Center G/DL<content styleCode="Italic s"> (3.5-5.0 G/DL)</content> Alanine 7-30 Above high <content [facility] aminotransferase normal styleCode="Bold"> Noel hs [Enzymatic Alanine Medical activity/volume] Aminotransferase Center in Serum or Plasma (ALT) </content>50 IU/L H<content styleCode="Italic s"> (7-30 IU/L)</content> Aspartate 14-36 Above high <content [facility] aminotransferase normal styleCode="Bold"> Noel hs [Enzymatic Aspartate Medical activity/volume] Aminotransferase Center in Serum or Plasma (AST) </content>52 IU/L H<content styleCode="Italic s"> (14-36 IU/L)</content> Albumin 3.5-5.0 <content [facility] [Mass/volume] in styleCode="Bold"> Noel hs Serum or Plasma Albumin Medical </content>3.6 Center G/DL<content styleCode="Italic s"> (3.5-5.0 G/DL)</content> Bilirubin.total 0.2-1.3 <content [facility] [Mass/volume] in styleCode="Bold"> Noel hs Serum or Plasma Bilirubin Total Medical </content>0.4 Center MG/DL<content styleCode="Italic s"> (0.2-1.3 MG/DL)</content> Alkaline 38-126 <content [facility] phosphatase styleCode="Bold"> Shemar [Enzymatic Alkaline Medical activity/volume] Phosphatase (ALP) Cente r in Serum or Plasma </content>91 IU/L<content styleCode="Italic s"> (38-126 IU/L)</content> ID Date Data Source Urinalysis 02/03/2018 07:30:00 AM EST [facility] Name Value Range Interpretation Description Data Sup porting Code Source(s) Document(s ) UNK 800-1800 Below low normal <content [facility] styleCode="David Lopezs d">Creatinine, Medical Random Urine Center </content>23.0 MG/DL L<content styleCode="Iman lics"> (800-1800 MG/DL)</conten t> UNK 30-90 <content [facility] styleCode="David Lopezs d">Sodium, Medical Random Urine Center </content>52 MEQ/L<content styleCode="Iman lics"> (30-90 MEQ/L)</conten t> UNK CLEAR <content [facility] styleCode="David Lopezs d">Urine Medical Clarity Center </content>GRETA R <content styleCode="Iman lics"> (CLEAR )</content> Color of Urine YELLOW <content [facility] styleCode="David Shemar d">Color, Medical Urine Center </content>YELL OW <content styleCode="Iman lics"> (YELLOW )</content> Specific 1.015-1.02 Below low normal <content [facility] gravity of 5 styleCode="David Lopezs Urine by Test d">Urine Medical strip Specific Center [place] </content>1.01 0 NM L<content styleCode="Iman lics"> (1.015-1.025 NM)</content> Ketones NEGATIVE <content [facility] [Mass/volume] styleCode="David Shemar in Urine by d">Urine Medical Test strip Ketone Center </content>NEGA TIVE MG/DL<content styleCode="Iman lics"> (NEGATIVE MG/DL)</conten t> UNK NEGATIVE <content [facility] styleCode="David Shemar d">Urine Medical Bilirubin Center </content>NEGA TIVE <content styleCode="Iman lics"> (NEGATIVE )</content> Glucose NEGATIVE <content [facility] [Mass/volume] styleCode="David Lopezs in Urine by d">Urine Medical Test strip Glucose Center </content>>=10 00 MG/DL<content styleCode="Iman lics"> (NEGATIVE MG/DL)</conten t> Protein NEGATIVE <content [facility] [Mass/volume] styleCode="David Lopezs in Urine by d">Urine Medical Test strip Protein Center </content>TRAC E MG/DL<content styleCode="Iman lics"> (NEGATIVE MG/DL)</conten t> pH of Urine by 4.5-8.0 <content [facility] Test strip styleCode="David Shemar d">Urine pH Medical </content>5.5 Center NM<content styleCode="Iman lics"> (4.5-8.0 NM)</content> Hemoglobin NEGATIVE <content [facility] [Presence] in styleCode="David Lopezs Urine by Test d">Urine Blood Medical strip </content>NEGA Center TIVE <content styleCode="Iman lics"> (NEGATIVE )</content> Leukocyte NEGATIVE <content [facility] esterase styleCode="David Lopezs [Presence] in d">Urine Medical Urine by Test Leukocyte Center strip </content>NEGA TIVE <content styleCode="Iman lics"> (NEGATIVE )</content> Nitrite NEGATIVE <content [Presence] in styleCode="David [facility] Urine by Test d">Urine Medical strip Nitrite Center </content>NEGA TIVE <content styleCode="Iman lics"> (NEGATIVE )</content> Urobilinogen 0.2-1.0 <content [facility] [Units/volume] styleCode="David [place] in Urine by d">Urine Medical Test strip Urobilinogen Center </content>0.2 MG/DL<content styleCode="Iman lics"> (0.2-1.0 MG/DL)</conten t> UNK NEGATIVE <content [facility] styleCode="David Shemar d">Urine Medical Bacteria Center </content>MANY HPF<content styleCode="Iman lics"> (NEGATIVE HPF)</content> UNK 0-3 <content [facility] styleCode="David Lopezs d">Urine White Medical Blood Cell Center </content>3-5 HPF<content styleCode="Iman lics"> (0-3 HPF)</content> UNK 0-3 <content [facility] styleCode="David Lopezs d">Urine Red Medical Blood Cell Center </content>0-3 HPF<content styleCode="Iman lics"> (0-3 HPF)</content> UNK <content [facility] styleCode="David Lopezs d">Epithelial Medical Cell Center </content>5 - 10 LPF (Reference Range: not available)<br/ > ID Date Data Source Microbiology 02/03/2018 07:06:00 AM EST [facility] Name Value Range Interpretation Code Description Data Nyla rce(s) Supporting Document(s ) UNK <item><content [facility] styleCode="Bold"> Medical Cent er Culture Status </content>
<t able><tbody><tr>< td>Specimen Number:</td><td>[id number]</td></tr ><tr><td>Sample Collection Date/Time: </td><td>02/04/20 18 7:06 AM</td></tr><tr>< td>Specimen Source:</td><td>B LOOD</td></tr><tr ><td>Culture Report:</td><td>C ulture in progress </td></tr><tr><td >Culture Status:</td><td>P reliminary </td></tr><tr><td >Blood Culture:</td><td> Collection Plate Date: 02/03/2018 07:48 </td></tr></tbody ></table></item> UNK <item><content [facility] styleCode="Bold"> Medical [facility] er Culture Report </content>
<t able><tbody><tr>< td>Specimen Number:</td><td>[id number]</td></tr ><tr><td>Sample Collection Date/Time: </td><td>02/04/20 18 7:06 AM</td></tr><tr>< td>Specimen Source:</td><td>B LOOD</td></tr><tr ><td>Blood Culture:</td><td> Collection Plate Date: 02/03/2018 07:48 </td></tr><tr><td >Culture Status:</td><td>P reliminary </td></tr><tr><td >Culture Report:</td><td>C ulture in progress </td></tr></tbody ></table></item> ID Date Data Source [id number] 06/20/2017 06:00:00 AM EDT [facility] Name Value Range Interpretation Description Data Sup porting Code Source(s) Document(s ) Sodium 135 137 - Below low normal Sodium, Serum [facility] [Moles/volume mmol/L 145 Health ] in Serum or mmol/L System Plasma Potassium 4.8 3.6 - Normal (applies Potassium, [facility] [Mass/volume] mmol/L 5.0 to non-numeric Serum Health in Serum or mmol/L results) System Plasma Chloride 103 98 - 107 Normal (applies Chloride, [facility] [Moles/volume mmol/L mmol/L to non-numeric Serum Health ] in Serum or results) System Plasma Carbon 22.0 22.0 - Normal (applies CO2, Serum [facility] dioxide, mmol/L 30.0 to non-numeric Health total mmol/L results) System [Moles/volume ] in Serum or Plasma Glucose 208 65 - 105 Above high normal Glucose, Serum [place] [Mass/volume] mg/dL mg/dL Health in Serum or System Plasma Urea nitrogen 23 mg/dl 7 - 18 Above high normal Blood Urea [place] [Mass/volume] mg/dl Nitrogen, Health in Serum or Serum System Plasma Creatinine 1.90 0.70 - Above high normal Creatinine, [facility] [facility] [Mass/volume] mg/dl 1.20 Serum Health in Serum or mg/dl System Plasma Calcium 8.6 8.4 - Normal (applies Calcium, Total [place] [facility] [Mass/volume] mg/dl 10.2 to non-numeric Serum Health in Serum or mg/dl results) System Plasma Anion gap in 10.00 8.00 - Normal (applies Anion Gap [facility] Serum or mmol/L 12.00 to non-numeric Health Plasma mmol/L results) System ID Date Data Source [id number] 06/20/2017 06:00:00 AM EDT [facility] Name Value Range Interpretation Description Data Sup porting Code Source(s) Document(s ) Magnesium 1.3 1.5 - Below low normal Magnesium, [facility] [Mass/volume {mEq/L} 2.2 Serum Health System ] in Serum mEq/L or Plasma ID Date Data Source [id number] 06/19/2017 06:00:00 AM EDT [facility] Name Value Range Interpretation Description Data Sup porting Code Source(s) Document(s ) Leukocytes 5.5 4.8 - Normal (applies WBC Count [facility] [#/volume] in {10^3_u 10.8 to non-numeric Health Unspecified L} 10^3 uL results) System specimen by Automated count Erythrocytes 3.93 3.80 - Normal (applies RBC Count [facility] [#/volume] in {10^6_u 5.20 to non-numeric Health Blood by L} 10^6 uL results) System Automated count Hemoglobin 11.4 12.0 - Below low normal Hemoglobin [facility] [Mass/volume] in {gm/dL} 16.0 Health Blood gm/dL System Hematocrit 33.0 % 36.0 - Below low normal Hematocrit [facility] [Volume 46.0 % Health Fraction] of System Blood Erythrocyte mean 84.0 fl 83.0 - Normal (applies MCV [facility] corpuscular 98.0 fl to non-numeric Health volume [Entitic results) System volume] by Automated count Erythrocyte mean 29.0 pg 26.0 - Normal (applies MCH [facility] corpuscular 34.0 pg to non-numeric Health hemoglobin results) System [Entitic mass] by Automated count Erythrocyte mean 34.5 33.0 - Normal (applies MCHC [facility] corpuscular {gm/dL} 37.0 to non-numeric Health hemoglobin gm/dL results) System concentration [Mass/volume] by Automated count Erythrocyte 12.9 % 11.5 - Normal (applies RDW-CV [facility] distribution 14.5 % to non-numeric Health width [Entitic results) System volume] by Automated count Platelets 179 130 - Normal (applies Platelet Count [facility] [#/volume] in {10^3_u 400 to non-numeric Health Plasma by L} 10^3 uL results) System Automated count Platelet mean 11.6 fl 7.4 - Above high MPV [facility] volume [Entitic 10.4 fl normal Health volume] in Blood System by Automated count Monocytes 0.3 0.3 - Below low normal Monocyte # [facility] [#/volume] in {10^3_u 0.9 Health Blood by Manual L} 10^3 uL System count Eosinophils 0.09 0.05 - Normal (applies Eosinophil # [facility] [#/volume] in {10^3_u 0.30 to non-numeric Health Blood L} 10^3 uL results) System Neutrophils 3.3 2.0 - Normal (applies Neutrophil # [facility] [#/volume] in {10^3_u 8.1 to non-numeric Health Body fluid L} 10^3 uL results) System Basophils 0.03 0.00 - Normal (applies Basophil # [facility] [#/volume] in {10^3_u 0.10 to non-numeric Health Blood by L} 10^3 uL results) System Automated count Lymphocyte # 1.8 1.0 - Normal (applies Lymphocyte # [facility] {10^3_u 5.5 to non-numeric Health L} 10^3 uL results) System Neutrophils/100 59.6 % 55.0 - Normal (applies Neutrophil % [facility] leukocytes in 75.0 % to non-numeric Health Blood by results) System Automated count Monocytes/100 5.2 % 6.0 - Below low normal Monocyte % [facility] leukocytes in 9.0 % Health Blood System Eosinophils/100 1.6 % 0.0 - Normal (applies Eosinophil % [facility] grace leukocytes in 4.0 % to non-numeric Health Unspecified results) System specimen Basophils/100 0.5 % 0.0 - Normal (applies Basophil % [facility] leukocytes in 1.0 % to non-numeric Health Unspecified results) System specimen by Manual count Lymphocytes 32.7 % 21.0 - Normal (applies Lymphocyte % [facility] [#/volume] in 51.0 % to non-numeric Health Blood by results) System Automated count Immature 0.4 % 0.0 - Normal (applies Immature [facility] Granulocytes % 0.8 % to non-numeric Granulocytes % Healt h results) System Nucleated 0.0 0.0 - Normal (applies NRBC % [facility] erythrocytes {/100_W 0.0 to non-numeric Health [#/volume] in BC} /100 results) System Body fluid WBC Immature 0.02 0.00 - Normal (applies Immature [facility] Granulocytes # {10^3_u 0.09 to non-numeric Granulocytes # Healt h L} 10^3 uL results) System NRBC # 0.00 0.90 - Below low normal NRBC # [facility] {10^3_u 11.20 Health L} 10^3 uL System ID Date Data Source [id number] 06/19/2017 06:00:00 AM EDT [facility] Name Value Range Interpretation Description Data Sup porting Code Source(s) Document(s ) Sodium 134 137 - Below low normal Sodium, Serum [facility] [Moles/volume] in mmol/L 145 Health Serum or Plasma mmol/L System Potassium 4.6 3.6 - Normal (applies Potassium, [facility] [Mass/volume] in mmol/L 5.0 to non-numeric Serum Health Serum or Plasma mmol/L results) System Chloride 107 98 - Normal (applies Chloride, [facility] [Moles/volume] in mmol/L 107 to non-numeric Serum Health Serum or Plasma mmol/L results) System Carbon dioxide, 16.0 22.0 - Below low normal CO2, Serum [facility] total mmol/L 30.0 Health [Moles/volume] in mmol/L System Serum or Plasma Total Protein 7.5 6.3 - Normal (applies Total Protein [facility] mg/dl 8.2 to non-numeric Health mg/dl results) System Glucose 250 65 - Above high Glucose, [facility] [Mass/volume] in mg/dL 105 normal Serum Health Serum or Plasma mg/dL System Urea nitrogen 19 7 - 18 Above high Blood Urea [facility] [Mass/volume] in mg/dl mg/dl normal Nitrogen, Health Serum or Plasma Serum System Creatinine 1.90 0.70 - Above high Creatinine, [facility] [Mass/volume] in mg/dl 1.20 normal Serum Health Serum or Plasma mg/dl System Alkaline 119 38 - Normal (applies Alkaline [facility] phosphatase {IU/L} 126 to non-numeric Phosphatase, Health isoenzymes IU/L results) Serum System [Enzymatic activity/volume] in Serum or Plasma by Heat stability Bilirubin.total 0.4 0.2 - Normal (applies Bilirubin, [facility] [Mass/volume] in mg/dl 1.3 to non-numeric Serum Total Health Serum or Plasma mg/dl results) System Direct Bilirubin 0.1 0.0 - Normal (applies Direct [facility] mg/dl 0.4 to non-numeric Bilirubin Health mg/dl results) System Aspartate 87 5 - 40 Above high Aspartate [facility] aminotransferase {IU/L} IU/L normal Transaminase, Health [Enzymatic Serum System activity/volume] in Serum or Plasma by With P-5'-P Albumin 3.6 3.9 - Below low normal Albumin, [facility] [Mass/volume] in {gm/dl} 5.0 Serum Health Serum or Plasma gm/dl System I. Phosphorus 3.8 2.5 - Normal (applies I. Phosphorus [facility] mg/dl 4.5 to non-numeric Health mg/dl results) System Alanine 58 7 - 56 Above high Alanine [facility] aminotransferase {IU/L} IU/L normal Aminotransfer Health [Enzymatic ase, Serum System activity/volume] in Serum or Plasma Calcium 8.8 8.4 - Normal (applies Calcium, [facility] [Mass/volume] in mg/dl 10.2 to non-numeric Total Serum Health Serum or Plasma mg/dl results) System A/G Ratio 0.92 Normal (applies A/G Ratio [facility] to non-numeric Health results) System Urate 4.2 2.5 - Normal (applies Uric Acid, [facility] [Mass/volume] in mg/dl 7.5 to non-numeric Serum Health Serum or Plasma mg/dl results) System Anion gap in Serum 11.00 8.00 - Normal (applies Anion Gap [facility] grace or Plasma mmol/L 12.00 to non-numeric Health mmol/L results) System Glomerular 26.72 Normal (applies GFR [facility] filtration to non-numeric Health rate/1.73 sq results) System M.predicted [Volume Rate/Area] in Serum or Plasma by Creatinine-based formula (CKD-EPI) eGFR will provide clinicians with a more accurate indicator of renal function then the serum creatinine. The eGFR is automa tically calculated from an empiric formula (endorsed by the [employer] ion) which incorporates age, sex, and race.Clinicians may notice surprisingly low GFR's with serum creatinine valueswithin normal range- particularly in elderly wo men (with low muscle mass).In the hospital setting, the eGFR should add an element of safety in drug dosing, in assessing the risk of IV contrast administration, and in assessing vascular risk.The NKF staging system is as follows:Normal: eGFR >90 with no kidney markersStage 1: eGFR >90 with kidney markers*Stage 2: eGFR 60- 89Stage 3: eGFR 30-59Stage 4: eGFR 15-29Stage 5: eGFR <15 (usually requir ing dialysis)*Markers include: Proteinuria, Hematuria, abnormal imaging-studies, or other blood or urine test abnormalities ID Date Data Source [id number] 06/19/2017 06:00:00 AM EDT [facility] System Name Value Range Interpretation Description Data Sup porting Code Source(s) Document(s ) Magnesium 1.3 1.5 - Below low normal Magnesium, [facility] [Mass/volume {mEq/L} 2.2 Serum Health System ] in Serum mEq/L or Plasma ID Date Data Source [id number] 06/17/2017 06:00:00 AM EDT [facility] Name Value Range Interpretation Description Data Source(s ) Supporting Code Document(s ) [id number] 539.79 Normal (applies to [id number] [facility] non-numeric Health System results) tHbWB 3099.84 Normal (applies to tHbWB [facility] non-numeric [facility] System results) %HbA1C 18.08 % 3.00 - Above high normal %HbA1C [facility] 6.50 % Health System ID Date Data Source [id number] 06/17/2017 06:00:00 AM EDT [facility] Name Value Range Interpretation Description Data Sup porting Code Source(s) Document(s ) Leukocytes 6.2 4.8 - Normal (applies WBC Count [facility] [#/volume] in {10^3_u 10.8 to non-numeric Health Unspecified L} 10^3 uL results) System specimen by Automated count Erythrocytes 4.05 3.80 - Normal (applies RBC Count [facility] [#/volume] in {10^6_u 5.20 to non-numeric Health Blood by L} 10^6 uL results) System Automated count Hemoglobin 11.4 12.0 - Below low normal Hemoglobin [facility] [Mass/volume] in {gm/dL} 16.0 Health Blood gm/dL System Hematocrit 33.5 % 36.0 - Below low normal Hematocrit [facility] [Volume 46.0 % Health Fraction] of System Blood Erythrocyte mean 82.7 fl 83.0 - Below low normal MCV [facility] corpuscular 98.0 fl Health volume [Entitic System volume] by Automated count Erythrocyte mean 28.1 pg 26.0 - Normal (applies MCH [facility] corpuscular 34.0 pg to non-numeric Health hemoglobin results) System [Entitic mass] by Automated count Erythrocyte mean 34.0 33.0 - Normal (applies MCHC [facility] corpuscular {gm/dL} 37.0 to non-numeric Health hemoglobin gm/dL results) System concentration [Mass/volume] by Automated count Erythrocyte 12.2 % 11.5 - Normal (applies RDW-CV [facility] distribution 14.5 % to non-numeric Health width [Entitic results) System volume] by Automated count Platelets 189 130 - Normal (applies Platelet Count [facility] [#/volume] in {10^3_u 400 to non-numeric Health Plasma by L} 10^3 uL results) System Automated count Platelet mean 12.1 fl 7.4 - Above high MPV [facility] volume [Entitic 10.4 fl normal Health volume] in Blood System by Automated count Monocytes 0.3 0.3 - Normal (applies Monocyte # [facility] [#/volume] in {10^3_u 0.9 to non-numeric Health Blood by Manual L} 10^3 uL results) System count Eosinophils 0.05 0.05 - Normal (applies Eosinophil # [facility] [#/volume] in {10^3_u 0.30 to non-numeric Health Blood L} 10^3 uL results) System Neutrophils 3.3 2.0 - Normal (applies Neutrophil # [facility] [#/volume] in {10^3_u 8.1 to non-numeric Health Body fluid L} 10^3 uL results) System Basophils 0.03 0.00 - Normal (applies Basophil # [facility] [#/volume] in {10^3_u 0.10 to non-numeric Health Blood by L} 10^3 uL results) System Automated count Lymphocyte # 2.5 1.0 - Normal (applies Lymphocyte # [facility] {10^3_u 5.5 to non-numeric Health L} 10^3 uL results) System Neutrophils/100 52.8 % 55.0 - Below low normal Neutrophil % [facility] leukocytes in 75.0 % Health Blood by System Automated count Monocytes/100 5.1 % 6.0 - Below low normal Monocyte % [facility] leukocytes in 9.0 % Health Blood System Eosinophils/100 0.8 % 0.0 - Normal (applies Eosinophil % [facility] grace leukocytes in 4.0 % to non-numeric Health Unspecified results) System specimen Basophils/100 0.5 % 0.0 - Normal (applies Basophil % [facility] leukocytes in 1.0 % to non-numeric Health Unspecified results) System specimen by Manual count Lymphocytes 40.5 % 21.0 - Normal (applies Lymphocyte % [facility] [#/volume] in 51.0 % to non-numeric Health Blood by results) System Automated count Immature 0.3 % 0.0 - Normal (applies Immature [facility] Granulocytes % 0.8 % to non-numeric Granulocytes % Healt h results) System Nucleated 0.0 0.0 - Normal (applies NRBC % [facility] erythrocytes {/100_W 0.0 to non-numeric Health [#/volume] in BC} /100 results) System Body fluid WBC Immature 0.02 0.00 - Normal (applies Immature [facility] Granulocytes # {10^3_u 0.09 to non-numeric Granulocytes # Healt h L} 10^3 uL results) System NRBC # 0.00 0.90 - Below low normal NRBC # [facility] {10^3_u 11.20 Health L} 10^3 uL System ID Date Data Source [id number] 06/17/2017 06:00:00 AM EDT [facility] System Name Value Range Interpretation Description Data Sup porting Code Source(s) Document(s ) Thyrotropin 1.026 0.380 - Normal (applies Thyroid [facility] [Mass/volume] {mIU/mL} 6.150 to non-numeric Stimulating Health in Serum or mIU/mL results) Hormone, System Plasma Serum ID Date Data Source [id number] 06/17/2017 06:00:00 AM EDT [facility] System Name Value Range Interpretation Description Data Sup porting Code Source(s) Document(s ) Sodium 134 137 - Below low normal Sodium, Serum [facility] [Moles/volume] in mmol/L 145 Health Serum or Plasma mmol/L System Potassium 4.4 3.6 - Normal (applies Potassium, [facility] [Mass/volume] in mmol/L 5.0 to non-numeric Serum Health Serum or Plasma mmol/L results) System Chloride 105 98 - Normal (applies Chloride, [facility] [Moles/volume] in mmol/L 107 to non-numeric Serum Health Serum or Plasma mmol/L results) System Carbon dioxide, 17.0 22.0 - Below low normal CO2, Serum [facility] total mmol/L 30.0 Health [Moles/volume] in mmol/L System Serum or Plasma Total Protein 8.0 6.3 - Normal (applies Total Protein [facility] mg/dl 8.2 to non-numeric Health mg/dl results) System Glucose 279 65 - Above high Glucose, [facility] [Mass/volume] in mg/dL 105 normal Serum Health Serum or Plasma mg/dL System Urea nitrogen 11 7 - 18 Normal (applies Blood Urea [facility] [Mass/volume] in mg/dl mg/dl to non-numeric Nitrogen, Health Serum or Plasma results) Serum System Creatinine 1.70 0.70 - Above high Creatinine, [facility] [Mass/volume] in mg/dl 1.20 normal Serum Health Serum or Plasma mg/dl System Alkaline 150 38 - Above high Alkaline [facility] phosphatase {IU/L} 126 normal Phosphatase, Health isoenzymes IU/L Serum System [Enzymatic activity/volume] in Serum or Plasma by Heat stability Bilirubin.total 0.6 0.2 - Normal (applies Bilirubin, [facility] [Mass/volume] in mg/dl 1.3 to non-numeric Serum Total Health Serum or Plasma mg/dl results) System Direct Bilirubin 0.3 0.0 - Normal (applies Direct [facility] mg/dl 0.4 to non-numeric Bilirubin Health mg/dl results) System Aspartate 71 5 - 40 Above high Aspartate [facility] aminotransferase {IU/L} IU/L normal Transaminase, Health [Enzymatic Serum System activity/volume] in Serum or Plasma by With P-5'-P Albumin 3.9 3.9 - Normal (applies Albumin, [facility] [Mass/volume] in {gm/dl} 5.0 to non-numeric Serum Health Serum or Plasma gm/dl results) System I. Phosphorus 2.1 2.5 - Below low normal I. Phosphorus [facility] mg/dl 4.5 Health mg/dl System Alanine 66 7 - 56 Above high Alanine [facility] aminotransferase {IU/L} IU/L normal Aminotransfer Health [Enzymatic ase, Serum System activity/volume] in Serum or Plasma Calcium 8.8 8.4 - Normal (applies Calcium, [facility] [Mass/volume] in mg/dl 10.2 to non-numeric Total Serum Health Serum or Plasma mg/dl results) System A/G Ratio 0.95 Normal (applies A/G Ratio [facility] to non-numeric Health results) System Urate 3.5 2.5 - Normal (applies Uric Acid, [facility] [Mass/volume] in mg/dl 7.5 to non-numeric Serum Health Serum or Plasma mg/dl results) System Anion gap in Serum 12.00 8.00 - Normal (applies Anion Gap U[facility] grace or Plasma mmol/L 12.00 to non-numeric Health mmol/L results) System Glomerular 30.38 Normal (applies GFR [facility] filtration to non-numeric Health rate/1.73 sq results) System M.predicted [Volume Rate/Area] in Serum or Plasma by Creatinine-based formula (CKD-EPI) eGFR will provide clinicians with a more accurate indicator of renal function then the serum creatinine. The eGFR is automa tically calculated from an empiric formula (endorsed by the [employer] ion) which incorporates age, sex, and race.Clinicians may notice surprisingly low GFR's with serum creatinine valueswithin normal range- particularly in elderly wo men (with low muscle mass).In the hospital setting, the eGFR should add an element of safety in drug dosing, in assessing the risk of IV contrast administration, and in assessing vascular risk.The NKF staging system is as follows:Normal: eGFR >90 with no kidney markersStage 1: eGFR >90 with kidney markers*Stage 2: eGFR 60- 89Stage 3: eGFR 30-59Stage 4: eGFR 15-29Stage 5: eGFR <15 (usually requir ing dialysis)*Markers include: Proteinuria, Hematuria, abnormal imaging-studies, or other blood or urine test abnormalities ID Date Data Source [id number] 06/17/2017 06:00:00 AM [facility] System Name Value Range Interpretation Description Data Sup porting Code Source(s) Document(s ) Triglyceride 112 35 - 135 Normal (applies Triglycerides [facility] [Mass/volume] mg/dl mg/dl to non-numeric , Serum Health in Serum or results) System Plasma Optimal = < 100 mg/dLBoderline High = 15 0 - 199 mg/dLHigh = 200 - 499 mg/dLVery High = > 500 mg/dL Cholesterol 156 mg/dl *.* mg/dl Normal (applies Cholesterol, [facility] [Mass/volume] in to non-numeric Serum Health S ystem Serum or Plasma results) <200 mg/dL = [id number] - 239 md/dL = Borderline>240 mg/dL = High Risk Cholesterol in HDL 31.0 mg/dL 32.0 - Below low HDL Cholesterol, [facility] [Mass/volume] in 75.0 mg/dL normal Serum Health Syste m Serum or Plasma Cholesterol in LDL 102.6 mg/dL Normal Low Density [facility] [Mass/volume] in (applies to Lipoprotein, Health S ystem Serum or Plasma non-numeric Calculated results) OPTIMAL: LESS THAN 100 mg/dLNEAR OPTIMAL : 100 - 129 mg/dLBODERLINE HIGH: 130 - 150 mg/dL Cholesterol in VLDL 22.4 Normal (applies to VLDL, Serum [facility] [Mass/volume] in non-numeric System Serum or Plasma results) CHD Risk 5.03 2.40 - Normal (applies to CHD Risk [facility] 5.30 non-numeric System results) ID Date Data Source [id number] 06/17/2017 06:00:00 AM EDT [facility] System Name Value Range Interpretation Description Data Sup porting Code Source(s) Document(s ) Cobalamin 350 213 - Normal (applies Vitamin B12, [facility] (Vitamin pg/ml 816 to non-numeric Serum Health System B12) pg/ml results) [Mass/volume ] in Serum or Plasma ID Date Data Source [id number] 06/17/2017 06:00:00 AM EDSebastian [facility] System Name Value Range Interpretation Description Data Sup porting Code Source(s) Document(s ) Folate 15.00 7.00 - Normal (applies Folate, Serum [facility] [Mass/volu ng/ml 31.40 to non-numeric Health System me] in ng/ml results) Serum or Plasma ID Date Data Source [id number] 06/16/2017 08:30:00 PM EDT [facility] System Name Value Range Interpretation Description Data Sup porting Code Source(s) Document(s ) pH 7.382 7.350 - Normal (applies pH [facility] {pH_unit 7.450 pH to non-numeric Health s} units results) System Carbon dioxide 34.4 32.0 - Normal (applies pCO2, [facility] [Partial {mm_Hg} 45.0 mm to non-numeric Arterial Health pressure] in Hg results) System Arterial blood Oxygen 92.2 83.0 - Normal (applies pO2, Aterial [facility] [Partial {mm_Hg} 108.0 mm to non-numeric Health pressure] in Hg results) System Arterial blood Base Excess. -4.7 -3.0 - Below low normal Base Excess. [facility] mmol/L 3.0 Health mmol/L System Bicarbonate 20.4 20.0 - Normal (applies HCO3 [facility] [Moles/volume] mmol/L 26.0 to non-numeric Health in Venous mmol/L results) System blood TCO2 19.1 24.0 - Below low normal TCO2 [facility] mmol/L 30.0 Health mmol/L System O2 Saturation 98.0 % 95.0 - Normal (applies O2 Saturation [facility] 99.0 % to non-numeric Health results) System Sodium, WB 137 137 - Normal (applies Sodium, WB [facility] mmol/L 145 to non-numeric Health mmol/L results) System Potassium, WB 2.9 3.6 - Below lower panic Potassium, WB [facility] mmol/L 5.0 limits Health mmol/L System Result Reporting|Telephone|HASMUKH Velasquez| 08/2017 at 9:02 PMCalled to:HASMUKH VelasquezTech Name:KAlamReadback by:HASMUKH Velasquez 8 9:02 PM Chloride, WB 105 mmol/L 98 - 107 Normal (applies Chloride, WB [facility] mmol/L to non-numeric Health System results) Glucose, WB 265 mg/dL 70 - 105 Above high Glucose, WB [facility] mg/dL normal Health System Ionized Calcium 1.16 mmol/L 1.15 - 1.29 Normal (applies Ionized [facility] mmol/L to non-numeric Calcium Health System results) Lactate 2.1 mmol/L 0.5 - 1.6 Above high Lactate [facility] [Mass/volume] mmol/L normal Health System in Serum or Plasma ID Date Data Source [id number] 06/16/2017 04:44:00 PM EDT [facility] System Name Value Range Interpretation Description Data Source(s ) Supporting Code Document(s ) PH* 7.312 7.310 - Normal (applies to PH* [facility] {pH_units 7.410 pH non-numeric Health System } units results) PCO2* 52.3 40.0 - Above high normal PCO2* [facility] {mm_Hg} 52.0 mm Health System Hg Base 0.20 -3.00 - Normal (applies to Base Excess* [facility] Excess* {mEq/L} 3.00 non-numeric Health System mEq/L results) HCO3* 26.4 22.0 - Normal (applies to HCO3* [facility] mmol/L 27.0 non-numeric Health System mmol/L results) Chloride 88 mmol/L 98 - 107 Below low normal Chloride, VB [facility] , VB mmol/L Health System Lactate. 1.8 0.7 - 2.1 Normal (applies to Lactate. [facility] mmol/L mmol/L non-numeric Health System results) Glucose, 756 mg/dL 65 - 110 Above upper panic Glucose, VB [facility] VB mg/dL limits Health System Result Reporting|Telephone|Ronnie Dickerson| 08/2017 at 5:14 PMCalled to:[facility] Name:JanineReadkavin by:Ronnie Dickerson 06/16/2017 / 5:13 PM Potassium, VB 4.1 mmol/L 3.6 - 5.0 Normal (applies Potassium, VB [facility]bal[facility] grace mmol/L to non-numeric Health System results) Sodium, VB 126 mmol/L 137 - 145 Below lower panic Sodium, VB [facility] mmol/L limits Health System Result Reporting|Telephone|Ronnie Dickerson| 08/2017 at 5:14 PMCalled to:[facility] Name:JanineReadkavin by:Ronnie Dickerson 06/16/2017 / 5:13 PM Ionized 1.18 mmol/L 1.15 - 1.29 Normal (applies Ionized [facility] Calcium, VB mmol/L to non-numeric Calcium, VB Health Syst em results) O2 Saturation* 47.30 % Normal (applies O2 [facility] to non-numeric Saturation* Health System results) ID Date Data Source [id number] 06/16/2017 03:56:00 PM EDT [facility] Name Value Range Interpretation Description Data Sup porting Code Source(s) Document(s ) Beta 0.16 0.02 - Normal (applies Beta [facility] Hydroxybutyrate mg/dL 0.27 to non-numeric Hydroxybutyrate Hea lth mg/dL results) System ID Date Data Source [id number] 06/16/2017 03:56:00 PM EDT [facility] Name Value Range Interpretation Description Data Sup porting Code Source(s) Document(s ) Color YELLOW Yellow Normal (applies Color [facility] to non-numeric Health results) System Appearance of SL CLOUDY Clear Normal (applies Urine [facility] Urine to non-numeric Appearance Health results) System Specific 1.005 Normal (applies Urine Specific [facility] gravity of to non-numeric [facility] Urine results) System pH.. 6.0 4.6 - 8.0 Normal (applies pH.. [facility] {pH_units} pH units to non-numeric Health results) System Glucose, UA > =1000 < 50 Normal (applies Glucose, UA [facility] mg/dl to non-numeric Health results) System Protein 30 mg/dl < 30 Normal (applies Protein [facility] [Mass/volume] mg/dl to non-numeric Health in Serum or results) System Plasma Bilirubin NEGATIVE Negative Normal (applies Bilirubin [facility] Urine Sm to Lg to non-numeric Urine Health results) System Urobilinogen 0.2 mg/dL 0.2 - 1.0 Normal (applies Urobilinogen [facility] [Mass/volume] mg/dL to non-numeric UA Health in Urine results) System Ketones NEGATIVE Negative Normal (applies Ketones UA [facility] [Mass/volume] mg/dL to non-numeric Health in Urine results) System Nitrate+Nitrit NEGATIVE Negative Normal (applies Nitrite [facility] Neg/Pos to non-numeric Health [Mass/volume] results) System in Unspecified specimen Leukocyte NEGATIVE Negative Normal (applies Leukocyte [facility] esterase Tr to Lg to non-numeric Esterase Health [Units/volume] results) Concentration System in Urine Leukocytes 5 {/HPF} 0 - 2 Normal (applies White Blood [facility] [#/volume] in /HPF to non-numeric Cells Health Unspecified results) System specimen by Automated count Red Blood 3 {/HPF} 0 - 1 Normal (applies Red Blood [facility] Cells /HPF to non-numeric Cells Health results) System Transitional 3 {/HPF} 0 /HPF Normal (applies Transitional [facility] Epithelial to non-numeric Epithelial Health results) System Epithelial 5 {/HPF} 0 - 3 Normal (applies Epithelial [facility] cells /HPF to non-numeric Cells Health [Presence] in results) System Unspecified specimen by Wet preparation Yeast 10 {/HPF} 0 /HPF Normal (applies Yeast-Budding [facility] [Presence] in to non-numeric Health Unspecified results) System specimen by Organism specific culture Urine Blood SMALL Negative Abnormal Urine Blood [facility] Sm to Lg (applies to Health non-numeric System results) ID Date Data Source [id number] 06/16/2017 03:56:00 PM EDT [facility] Name Value Range Interpretation Description Data Sup porting Code Source(s) Document(s ) aPTT in Blood 24.0 20.0 - Normal (applies Activated [facility] by {Second 30.3 to non-numeric Partial Health Coagulation s} Seconds results) Thromboplastin System assay Time ID Date Data Source [id number] 06/16/2017 03:56:00 PM EDT [facility] Name Value Range Interpretation Description Data Sup porting Code Source(s) Document(s ) Prothrombin 10.00 9.40 - Normal (applies Prothrombin [facility] time (PT) {seconds 11.30 to non-numeric time (PT) Health } seconds results) System INR in Blood 0.95 0.70 - Normal (applies INR Result [facility] by Coagulation {Ratio} 1.10 to non-numeric Health assay Ratio results) System Normal = 0.7-1.1Therapeutic = 2.0-3.0Mec hanical Heart = 3.0-4.5 ID Date Data Source [id number] 06/16/2017 03:56:00 PM EDT [facility] Name Value Range Interpretation Description Data Sup porting Code Source(s) Document(s ) Leukocytes 6.3 4.8 - Normal (applies WBC Count [facility] [#/volume] in {10^3_u 10.8 to non-numeric Health Unspecified L} 10^3 uL results) System specimen by Automated count Erythrocytes 4.53 3.80 - Normal (applies RBC Count [facility] [#/volume] in {10^6_u 5.20 to non-numeric Health Blood by L} 10^6 uL results) System Automated count Hemoglobin 12.8 12.0 - Normal (applies Hemoglobin [facility] [Mass/volume] in {gm/dL} 16.0 to non-numeric Health Blood gm/dL results) System Hematocrit 36.9 % 36.0 - Normal (applies Hematocrit [facility] [Volume 46.0 % to non-numeric Health Fraction] of results) System Blood Erythrocyte mean 81.5 fl 83.0 - Below low normal MCV [facility] corpuscular 98.0 fl Health volume [Entitic System volume] by Automated count Erythrocyte mean 28.3 pg 26.0 - Normal (applies MCH [facility] corpuscular 34.0 pg to non-numeric Health hemoglobin results) System [Entitic mass] by Automated count Erythrocyte mean 34.7 33.0 - Normal (applies MCHC [facility] corpuscular {gm/dL} 37.0 to non-numeric Health hemoglobin gm/dL results) System concentration [Mass/volume] by Automated count Erythrocyte 12.0 % 11.5 - Normal (applies RDW-CV [facility] distribution 14.5 % to non-numeric Health width [Entitic results) System volume] by Automated count Platelets 204 130 - Normal (applies Platelet Count [facility] [#/volume] in {10^3_u 400 to non-numeric Health Plasma by L} 10^3 uL results) System Automated count Platelet mean 12.1 fl 7.4 - Above high MPV [facility] volume [Entitic 10.4 fl normal Health volume] in Blood System by Automated count Monocytes 0.3 0.3 - Normal (applies Monocyte # [facility] [#/volume] in {10^3_u 0.9 to non-numeric Health Blood by Manual L} 10^3 uL results) System count Eosinophils 0.03 0.05 - Below low normal Eosinophil # [facility] [#/volume] in {10^3_u 0.30 Health Blood L} 10^3 uL System Neutrophils 4.2 2.0 - Normal (applies Neutrophil # [facility] [#/volume] in {10^3_u 8.1 to non-numeric Health Body fluid L} 10^3 uL results) System Basophils 0.02 0.00 - Normal (applies Basophil # [facility] [#/volume] in {10^3_u 0.10 to non-numeric Health Blood by L} 10^3 uL results) System Automated count Lymphocyte # 1.7 1.0 - Normal (applies Lymphocyte # [facility] {10^3_u 5.5 to non-numeric Health L} 10^3 uL results) System Neutrophils/100 66.4 % 55.0 - Normal (applies Neutrophil % [facility] grace leukocytes in 75.0 % to non-numeric Health Blood by results) System Automated count Monocytes/100 4.9 % 6.0 - Below low normal Monocyte % [facility] leukocytes in 9.0 % Health Blood System Eosinophils/100 0.5 % 0.0 - Normal (applies Eosinophil % [facility] grace leukocytes in 4.0 % to non-numeric Health Unspecified results) System specimen Basophils/100 0.3 % 0.0 - Normal (applies Basophil % [facility] leukocytes in 1.0 % to non-numeric Health Unspecified results) System specimen by Manual count Lymphocytes 27.3 % 21.0 - Normal (applies Lymphocyte % [facility] [#/volume] in 51.0 % to non-numeric Health Blood by results) System Automated count Immature 0.6 % 0.0 - Normal (applies Immature [facility] Granulocytes % 0.8 % to non-numeric Granulocytes % Healt h results) System Nucleated 0.0 0.0 - Normal (applies NRBC % [facility] erythrocytes {/100_W 0.0 to non-numeric Health [#/volume] in BC} /100 results) System Body fluid WBC Immature 0.04 0.00 - Normal (applies Immature [facility] Granulocytes # {10^3_u 0.09 to non-numeric Granulocytes # Healt h L} 10^3 uL results) System NRBC # 0.00 0.90 - Below low normal NRBC # [facility] {10^3_u 11.20 Health L} 10^3 uL System ID Date Data Source [id number] 06/16/2017 03:56:00 PM EDT [facility] System Name Value Range Interpretation Description Data Sup porting Code Source(s) Document(s ) Sodium 125 137 - Below lower panic Sodium, Serum [facility] [Moles/vol mmol/L 145 limits Health System ume] in mmol/L Serum or Plasma Result Reporting|Telephone|Ronnie Dickerson| 08/2017 at 5:30 PMCalled to:[facility] Name:KalamReadback by:Ronnie Dickerson 06/16/2017 / 5:30 PM Potassium 4.2 mmol/L 3.6 - 5.0 Normal (applies Potassium, [facility] [Mass/volume] in mmol/L to non-numeric Serum Health S ystem Serum or Plasma results) Chloride 89 mmol/L 98 - 107 Below low Chloride, [facility] [Moles/volume] in mmol/L normal Serum Health Syste m Serum or Plasma Carbon dioxide, 21.0 mmol/L 22.0 - 30.0 Below low CO2, Serum [facility] total mmol/L normal Health System [Moles/volume] in Serum or Plasma Total Protein 9.7 mg/dl 6.3 - 8.2 Above high Total Protein [facility] mg/dl normal Health System Glucose 838 mg/dL 65 - 105 Normal (applies Glucose, Serum [facility] [Mass/volume] in mg/dL to non-numeric Health S ystem Serum or Plasma results) Result Reporting|Telephone|Ronnie Dickerson| 08/2017 at 5:30 PMCalled to:[facility] Name:JanineReadkavin by:Ronnie Dickerson 06/16/2017 / 5:30 PM Urea nitrogen 15 mg/dl 7 - 18 Normal (applies Blood Urea [facility] [Mass/volume] in mg/dl to non-numeric Nitrogen, Health S ystem Serum or Plasma results) Serum Creatinine 2.40 mg/dl 0.70 - Above high Creatinine, [facility] [Mass/volume] in 1.20 normal Serum Health System Serum or Plasma mg/dl Alkaline phosphatase 178 {IU/L} 38 - 126 Above high Alkaline [facility] isoenzymes [Enzymatic IU/L normal Phosphatase, Healt h System activity/volume] in Serum Serum or Plasma by Heat stability Bilirubin.total 0.5 mg/dl 0.2 - 1.3 Normal (applies Bilirubin, [facility] [Mass/volume] in mg/dl to non-numeric Serum Total Health System Serum or Plasma results) Direct Bilirubin 0.2 mg/dl 0.0 - 0.4 Normal (applies Direct [facility] mg/dl to non-numeric Bilirubin Health System results) Aspartate 71 {IU/L} 5 - 40 Above high Aspartate [facility] aminotransferase IU/L normal Transaminase, Health Sy stem [Enzymatic Serum activity/volume] in Serum or Plasma by With P-5'-P Albumin [Mass/volume] 4.5 3.9 - 5.0 Normal (applies Albumin, Ser um [facility] in Serum or Plasma {gm/dl} gm/dl to non-numeric Health System results) I. Phosphorus 3.7 mg/dl 2.5 - 4.5 Normal (applies I. Phosphorus [facility] mg/dl to non-numeric Health System results) Alanine 76 {IU/L} 7 - 56 Above high Alanine [facility] aminotransferase IU/L normal Aminotransfera Health S ystem [Enzymatic se, Serum activity/volume] in Serum or Plasma Calcium [Mass/volume] 9.6 mg/dl 8.4 - Normal (applies Calcium, Tot al [facility] in Serum or Plasma 10.2 to non-numeric Serum Health System mg/dl results) A/G Ratio 0.87 Normal (applies A/G Ratio [facility] to non-numeric Health System results) Urate [Mass/volume] 4.4 mg/dl 2.5 - 7.5 Normal (applies Uric Acid, [facility] in Serum or Plasma mg/dl to non-numeric Serum Health System results) Anion gap in Serum or 15.00 8.00 - Above high Anion Gap [facility] Plasma mmol/L 12.00 normal Health System mmol/L Glomerular filtration 20.41 Normal (applies GFR [facility] rate/1.73 sq to non-numeric Health Syste m M.predicted [Volume results) Rate/Area] in Serum or Plasma by Creatinine-based formula (CKD-EPI) eGFR will provide clinicians with a more accurate indicator of renal function then the serum creatinine. The eGFR is automa tically calculated from an empiric formula (endorsed by the National Kidney [employer] ion) which incorporates age, sex, and race.Clinicians may notice surprisingly low GFR's with serum creatinine valueswithin normal range- particularly in elderly wo men (with low muscle mass).In the hospital setting, the eGFR should add an element of safety in drug dosing, in assessing the risk of IV contrast administration, and in assessing vascular risk.The NKF staging system is as follows:Normal: eGFR >90 with no kidney markersStage 1: eGFR >90 with kidney markers*Stage 2: eGFR 60- 89Stage 3: eGFR 30-59Stage 4: eGFR 15-29Stage 5: eGFR <15 (usually requir ing dialysis)*Markers include: Proteinuria, Hematuria, abnormal imaging-studies, or other blood or urine test abnormalities ID Date Data Source [id number] 06/16/2017 03:56:00 PM EDT [facility] Name Value Range Interpretation Description Data Sup porting Code Source(s) Document(s ) Alcohol < 10.0 Normal (applies to Alcohol Ethyl, [facility] Ethyl, non-numeric Blood Health System Blood results) None Detected ID Date Data Source [id number] 06/16/2017 03:56:00 PM EDT [facility] Name Value Range Interpretation Description Data Sup porting Code Source(s) Document(s ) Troponin I 0.02 0.00 - Normal (applies Troponin I [facility] Quantitative - ng/mL 0.04 to non-numeric Quantitative - Healt h MV Only ng/mL results) MV Only System ID Date Data Source [id number] 06/16/2017 03:56:00 PM EDT [facility] Name Value Range Interpretation Description Data Source(s ) Supporting Code Document(s ) Lipase 6 U/L 8 - 78 Below low normal Lipase, Serum [facility] [Enzymatic U/L Health System activity/v olume] in Serum or Plasma ID Date Data Source [id number] 06/16/2017 03:56:00 PM EDT [facility] Name Value Range Interpretation Description Data Sup porting Code Source(s) Document(s ) Amphetamine Negative Negative Normal (applies Amphetamine [facility] [Mass/volume] ng/ml to non-numeric Level, Urine Health in Urine results) System Cut-off = 1000 ng/mL Barbiturates Negative Negative Normal (applies Barbiturate [facility] [Mass/volume] in ng/ml to non-numeric Screen, Urine Heal th System Urine by Screen results) method Cut-off = 200 ng/mL Benzodiazepines Negative Negative Normal Benzodiazepines, [facility] [Mass/volume] in ng/mL (applies to Urine Health Urine non-numeric System results) Cut-off = 200 ng/mL Cocaine Negative Negative Normal (applies Cocaine [facility] metabolites.other ng/ml to non-numeric Metabolite Health System [Mass/volume] in results) Screen, Urine Urine Cut-off = 300 ng/mL Methadone Negative Negative Normal (applies Methadone [facility] [Mass/volume] in ng/mL to non-numeric Level, Urine Healt h System Urine results) Cut-off = 300 ng/mL Opiate 300, Negative Negative ng/ml Normal (applies to Opiate 300, [facility] Urine non-numeric Urine Health System results) Cut-off = 300 ng/mL Phencyclidine Negative Negative Normal (applies Phencyclidine, [facility] [Mass/volume] in ng/ml to non-numeric Urine Health S ystem Urine results) Cut-off = 25 ng/mL Cannabinoid Negative Negative Normal (applies Cannabinoid [facility] (THC) ng/mL to non-numeric (THC) Health System results) Cutt-off = 50These results are for medic al treatment only. The positive findings are unconfirmed. Request confirmatory/quanti tative test if needed. ID Date Data Source [id number] 06/16/2017 03:56:00 PM EDT [facility] Name Value Range Interpretation Description Data Sup porting Code Source(s) Document(s ) Ammonia Cancelled Ammonia, Serum [facility] [Mass/volu specimen not Health System me] in received. Serum ID Date Data Source [id number] 06/16/2017 03:56:00 PM EDT [facility] Name Value Range Interpretation Description Data Sup porting Code Source(s) Document(s ) Deprecated NO GROWTH Aerobic [facility] Bacteria Culture, Urine Health System identified in Urine by Aerobe culture ID Date Data Source [id number] 01/04/2017 10:50:00 AM EDT [facility] Name Value Range Interpretation Description Data Sup porting Code Source(s) Document(s ) C. Not Normal (applies C. [facility] Trachomatis DetectedReference to non-numeric Trachomatis Hea lth Amp Range: Not results) Amp System Detected N. Gonorrhea Not Normal (applies N. Gonorrhea [facility] by LCR DetectedReference to non-numeric by LCR Health Range: Not results) System DetectedThis test was performed using the APTIMA COMBO2(R) Assay(GEN-PROBE(R )).Test Performed at:[email or web address], [address] [place] M.D. ID Date Data Source [id number] 01/04/2017 10:50:00 AM EDT [facility] Name Value Range Interpretation Description Data Sup porting Code Source(s) Document(s ) Report FINAL Normal (applies Report Status [facility] Status to non-numeric Health results) System STATEMENT OF SEE Normal (applies STATEMENT OF [facility] ADEQUACY NOTESATISFAC to non-numeric ADEQUACY Health TORY FOR results) System EVALUATION GENERAL DNR Normal (applies GENERAL [facility] CATEGORIZATI to non-numeric CATEGORIZATION Health ON results) System INTERPRETATI SEE Normal (applies INTERPRETATION/RE [facility] ON/RESULT 1 NOTENegative to non-numeric SULT 1 Health for results) System intraepithel ial lesion or malignancy. INTERPRETATI DNR Normal (applies INTERPRETATION/RE [facility] ON/RESULT 2 to non-numeric SULT 2 Health results) System COMMENT CYTO DNR Normal (applies COMMENT CYTO [facility] to non-numeric Health results) System CYTOTECHNOLO SEE NOTEPXP, Normal (applies HUMAN RESOURCES PROJECT COORDINATOR [facility] GIST CT(ASCP)CT to non-numeric Health screening results) System location: [place] [address] REVIEW DNR Normal (applies REVIEW [facility] CYTOTECHNOLO to non-numeric HUMAN RESOURCES PROJECT COORDINATOR Healt h GIST results) System PATHOLOGIST. DNR Normal (applies PATHOLOGIST. [facility] to non-numeric Health results) System ID Date Data Source [id number] 12/30/2016 06:00:00 AM EDT [facility] Name Value Range Interpretation Description Data Sup porting Code Source(s) Document(s ) Leukocytes 7.5 4.8 - Normal (applies WBC Count [facility] [#/volume] in {10^3_u 10.8 to non-numeric Health Unspecified L} 10^3 uL results) System specimen by Automated count Erythrocytes 2.90 3.80 - Below low normal RBC Count [facility] [#/volume] in {10^6_u 5.20 Health Blood by L} 10^6 uL System Automated count Hemoglobin 8.6 12.0 - Below low normal Hemoglobin [facility] [Mass/volume] in {gm/dL} 16.0 Health Blood gm/dL System Hematocrit 25.5 % 36.0 - Below low normal Hematocrit [facility] [Volume 46.0 % Health Fraction] of System Blood Erythrocyte mean 87.9 fl 83.0 - Normal (applies MCV [facility] corpuscular 98.0 fl to non-numeric Health volume [Entitic results) System volume] by Automated count Erythrocyte mean 29.7 pg 26.0 - Normal (applies MCH [facility] corpuscular 34.0 pg to non-numeric Health hemoglobin results) System [Entitic mass] by Automated count Erythrocyte mean 33.7 33.0 - Normal (applies MCHC [facility] corpuscular {gm/dL} 37.0 to non-numeric Health hemoglobin gm/dL results) System concentration [Mass/volume] by Automated count Erythrocyte 16.1 % 11.5 - Above high RDW-CV [facility] distribution 14.5 % normal Health width [Entitic System volume] by Automated count Platelets 233 130 - Normal (applies Platelet Count [facility] [#/volume] in {10^3_u 400 to non-numeric Health Plasma by L} 10^3 uL results) System Automated count Platelet mean 10.1 fl 7.4 - Normal (applies MPV [facility] volume [Entitic 10.4 fl to non-numeric Health volume] in Blood results) System by Automated count Monocytes 0.5 0.3 - Normal (applies Monocyte # [facility] [#/volume] in {10^3_u 0.9 to non-numeric Health Blood by Manual L} 10^3 uL results) System count Eosinophils 0.24 0.05 - Normal (applies Eosinophil # [facility] [#/volume] in {10^3_u 0.30 to non-numeric Health Blood L} 10^3 uL results) System Neutrophils 5.0 2.0 - Normal (applies Neutrophil # [facility] [#/volume] in {10^3_u 8.1 to non-numeric Health Body fluid L} 10^3 uL results) System Basophils 0.04 0.00 - Normal (applies Basophil # [facility] [#/volume] in {10^3_u 0.10 to non-numeric Health Blood by L} 10^3 uL results) System Automated count Lymphocyte # 1.8 1.0 - Normal (applies Lymphocyte # [facility] {10^3_u 5.5 to non-numeric Health L} 10^3 uL results) System Neutrophils/100 65.6 % 55.0 - Normal (applies Neutrophil % Ubal[facility] grace leukocytes in 75.0 % to non-numeric Health Blood by results) System Automated count Monocytes/100 6.5 % 6.0 - Normal (applies Monocyte % [facility] leukocytes in 9.0 % to non-numeric Health Blood results) System Eosinophils/100 3.2 % 0.0 - Normal (applies Eosinophil % [facility] grace leukocytes in 4.0 % to non-numeric Health Unspecified results) System specimen Basophils/100 0.5 % 0.0 - Normal (applies Basophil % [facility] leukocytes in 1.0 % to non-numeric Health Unspecified results) System specimen by Manual count Lymphocytes 23.5 % 21.0 - Normal (applies Lymphocyte % [facility] [#/volume] in 51.0 % to non-numeric Health Blood by results) System Automated count Immature 0.7 % 0.0 - Normal (applies Immature [facility] Granulocytes % 0.8 % to non-numeric Granulocytes % Healt h results) System Nucleated 0.0 0.0 - Normal (applies NRBC % [facility] erythrocytes {/100_W 0.0 to non-numeric Health [#/volume] in BC} /100 results) System Body fluid WBC Immature 0.05 0.00 - Normal (applies Immature [facility] Granulocytes # {10^3_u 0.09 to non-numeric Granulocytes # Healt h L} 10^3 uL results) System NRBC # 0.00 0.90 - Below low normal NRBC # [facility] {10^3_u 11.20 Health L} 10^3 uL System ID Date Data Source [id number] 12/30/2016 06:00:00 AM EDT [facility] Name Value Range Interpretation Description Data Sup porting Code Source(s) Document(s ) Sodium 136 137 - Below low normal Sodium, Serum [facility] [Moles/volum mmol/L 145 Health System e] in Serum mmol/L or Plasma Potassium 4.7 3.6 - Normal (applies Potassium, [facility] [Mass/volume mmol/L 5.0 to non-numeric Serum Health Syste m ] in Serum mmol/L results) or Plasma Chloride 110 98 - 107 Above high normal Chloride, [facility] [Moles/volum mmol/L mmol/L Serum Health System e] in Serum or Plasma Carbon 16.0 22.0 - Below low normal CO2, Serum [facility] dioxide, mmol/L 30.0 Health System total mmol/L [Moles/volum e] in Serum or Plasma Total 6.7 6.3 - Normal (applies Total Protein [facility] Protein mg/dl 8.2 to non-numeric Health System mg/dl results) Glucose 286 65 - 105 Above high normal Glucose, Serum [facility] [Mass/volume mg/dL mg/dL Health System ] in Serum or Plasma [place] Urea nitrogen 29 mg/dl 7 - 18 Above high Blood Urea [facility] [Mass/volume] in mg/dl normal Nitrogen, Serum Health System Serum or Plasma Creatinine 1.50 mg/dl 0.70 - 1.20 Above high Creatinine, [facility] [Mass/volume] in mg/dl normal Serum Health System Serum or Plasma [place] Alkaline phosphatase 107 {IU/L} 38 - 126 Normal (applies Alkaline [facility] isoenzymes IU/L to non-numeric Phosphatase, [facility] em [Enzymatic results) Serum activity/volume] in Serum or Plasma by Heat stability Bilirubin.total 0.3 mg/dl 0.2 - Normal (applies Bilirubin, Serum [facility] [Mass/volume] in 1.3 to non-numeric Total [facility] or Plasma mg/dl results) Direct Bilirubin 0.1 mg/dl 0.0 - Normal (applies Direct Bilirubin [facility] 0.4 to non-numeric Health System mg/dl results) Aspartate 26 {IU/L} 5 - 40 Normal (applies Aspartate [facility] aminotransferase IU/L to non-numeric Transaminase, [facility] [Enzymatic results) Serum activity/volume] in Serum or Plasma by With P-5'-P Albumin 3.3 3.9 - Below low Albumin, Serum [facility] [Mass/volume] in {gm/dl} 5.0 normal Health System Serum or Plasma gm/dl I. Phosphorus 3.8 mg/dl 2.5 - Normal (applies I. Phosphorus [facility] 4.5 to non-numeric Health System mg/dl results) Alanine 24 {IU/L} 7 - 56 Normal (applies Alanine [facility] aminotransferase IU/L to non-numeric [facility] [Enzymatic results) , Serum activity/volume] in Serum or Plasma Calcium 8.6 mg/dl 8.4 - Normal (applies Calcium, Total [facility] [Mass/volume] in 10.2 to non-numeric Serum [facility] Serum or Plasma mg/dl results) A/G Ratio 0.97 Normal (applies A/G Ratio [facility] to non-numeric Health System results) Urate [Mass/volume] 4.4 mg/dl 2.5 - Normal (applies Uric Acid, Ser um [facility] in Serum or Plasma 7.5 to non-numeric Health System mg/dl results) Anion gap in Serum 10.00 8.00 - Normal (applies Anion Gap [facility] or Plasma mmol/L 12.00 to non-numeric Health System mmol/L results) Glomerular 35.15 Normal (applies GFR [facility] filtration rate/1.73 to non-numeric Heal th System sq M.predicted results) [Volume Rate/Area] in Serum or Plasma by Creatinine-based formula (CKD-EPI) eGFR will provide clinicians with a more accurate indicator of renal function then the serum creatinine. The eGFR is automa tically calculated from an empiric formula (endorsed by the National Kidney [employer] ion) which incorporates age, sex, and race.Clinicians may notice surprisingly low GFR's with serum creatinine valueswithin normal range- particularly in elderly wo men (with low muscle mass).In the hospital setting, the eGFR should add an element of safety in drug dosing, in assessing the risk of IV contrast administration, and in assessing vascular risk.The NKF staging system is as follows:Normal: eGFR >90 with no kidney markersStage 1: eGFR >90 with kidney markers*Stage 2: eGFR 60- 89Stage 3: eGFR 30-59Stage 4: eGFR 15-29Stage 5: eGFR <15 (usually requir ing dialysis)*Markers include: Proteinuria, Hematuria, abnormal imaging-studies, or other blood or urine test abnormalities ID Date Data Source [id number] 12/29/2016 10:50:00 PM EDT [facility] Name Value Range Interpretation Description Data Sup porting Code Source(s) Document(s ) Sodium 134 137 - Below low normal Sodium, Serum [facility] [Moles/volum mmol/L 145 Health System e] in Serum mmol/L or Plasma Potassium 4.8 3.6 - Normal (applies Potassium, [facility] [Mass/volume mmol/L 5.0 to non-numeric Serum Health Syste m ] in Serum mmol/L results) or Plasma Chloride 107 98 - 107 Normal (applies Chloride, [facility] [Moles/volum mmol/L mmol/L to non-numeric Serum Health Syste m e] in Serum results) or Plasma Carbon 17.0 22.0 - Below low normal CO2, Serum [facility] dioxide, mmol/L 30.0 Health System total mmol/L [Moles/volum e] in Serum or Plasma Glucose 543 65 - 105 Above upper panic Glucose, Serum [facility] [Mass/volume mg/dL mg/dL limits Health System ] in Serum or Plasma SARAHResult Reporting|Telephone|CALL & READ BACK BY DR BOWIE|12/29/2016 at 11:31 PMCalled to:Tech Name:Readback by:12/29/2016 / 11 :31 PM Urea nitrogen 29 mg/dl 7 - 18 Above high Blood Urea [facility] [Mass/volume] in mg/dl normal Nitrogen, Serum Health System Serum or Plasma Creatinine 2.00 mg/dl 0.70 - 1.20 Above high Creatinine, [facility] [Mass/volume] in mg/dl normal Serum Health System Serum or Plasma [place] Calcium 8.5 mg/dl 8.4 - 10.2 Normal (applies Calcium, [facility] [Mass/volume] in mg/dl to non-numeric Total Serum Health System Serum or Plasma results) Anion gap in Serum 10.00 8.00 - Normal (applies Anion Gap [facility] or Plasma mmol/L 12.00 to non-numeric Health System mmol/L results) ID Date Data Source [id number] 12/29/2016 10:50:00 PM EDT [facility] Name Value Range Interpretation Description Data Sup porting Code Source(s) Document(s ) Acetone, Negative Negative Normal (applies Acetone, [facility] Serum to non-numeric Serum Health Qualitative results) Qualitative System ID Date Data Source [id number] 12/29/2016 06:00:00 AM EDT [facility] Name Value Range Interpretation Description Data Sup porting Code Source(s) Document(s ) Leukocytes 6.3 4.8 - Normal (applies WBC Count [facility] [#/volume] in {10^3_u 10.8 to non-numeric Health Unspecified L} 10^3 uL results) System specimen by Automated count Erythrocytes 2.59 3.80 - Below low normal RBC Count [facility] [#/volume] in {10^6_u 5.20 Health Blood by L} 10^6 uL System Automated count Hemoglobin 7.6 12.0 - Below low normal Hemoglobin [facility] [Mass/volume] in {gm/dL} 16.0 Health Blood gm/dL System Hematocrit 22.9 % 36.0 - Below low normal Hematocrit [facility] [Volume 46.0 % Health Fraction] of System Blood Erythrocyte mean 88.4 fl 83.0 - Normal (applies MCV [facility] corpuscular 98.0 fl to non-numeric Health volume [Entitic results) System volume] by Automated count Erythrocyte mean 29.3 pg 26.0 - Normal (applies MCH [facility] corpuscular 34.0 pg to non-numeric Health hemoglobin results) System [Entitic mass] by Automated count Erythrocyte mean 33.2 33.0 - Normal (applies MCHC [facility] corpuscular {gm/dL} 37.0 to non-numeric Health hemoglobin gm/dL results) System concentration [Mass/volume] by Automated count Erythrocyte 15.5 % 11.5 - Above high RDW-CV [facility] distribution 14.5 % normal Health width [Entitic System volume] by Automated count Platelets 231 130 - Normal (applies Platelet Count [facility] [#/volume] in {10^3_u 400 to non-numeric Health Plasma by L} 10^3 uL results) System Automated count Platelet mean 9.8 fl 7.4 - Normal (applies MPV [facility] volume [Entitic 10.4 fl to non-numeric Health volume] in Blood results) System by Automated count Monocytes 0.3 0.3 - Below low normal Monocyte # [facility] [#/volume] in {10^3_u 0.9 Health Blood by Manual L} 10^3 uL System count Eosinophils 0.13 0.05 - Normal (applies Eosinophil # [facility] [#/volume] in {10^3_u 0.30 to non-numeric Health Blood L} 10^3 uL results) System Neutrophils 3.6 2.0 - Normal (applies Neutrophil # [facility] [#/volume] in {10^3_u 8.1 to non-numeric Health Body fluid L} 10^3 uL results) System Basophils 0.03 0.00 - Normal (applies Basophil # [facility] [#/volume] in {10^3_u 0.10 to non-numeric Health Blood by L} 10^3 uL results) System Automated count Lymphocyte # 2.2 1.0 - Normal (applies Lymphocyte # [facility] {10^3_u 5.5 to non-numeric Health L} 10^3 uL results) System Neutrophils/100 57.2 % 55.0 - Normal (applies Neutrophil % [facility] leukocytes in 75.0 % to non-numeric Health Blood by results) System Automated count Monocytes/100 4.3 % 6.0 - Below low normal Monocyte % [facility] leukocytes in 9.0 % Health Blood System Eosinophils/100 2.1 % 0.0 - Normal (applies Eosinophil % [facility] leukocytes in 4.0 % to non-numeric Health Unspecified results) System specimen Basophils/100 0.5 % 0.0 - Normal (applies Basophil % [facility] leukocytes in 1.0 % to non-numeric Health Unspecified results) System specimen by Manual count Lymphocytes 34.9 % 21.0 - Normal (applies Lymphocyte % [facility] [#/volume] in 51.0 % to non-numeric Health Blood by results) System Automated count Immature 1.0 % 0.0 - Above high Immature [facility] Granulocytes % 0.8 % normal Granulocytes % Health System Nucleated 0.0 0.0 - Normal (applies NRBC % [facility] erythrocytes {/100_W 0.0 to non-numeric Health [#/volume] in BC} /100 results) System Body fluid WBC Immature 0.06 0.00 - Normal (applies Immature [facility] Granulocytes # {10^3_u 0.09 to non-numeric Granulocytes # Healt h L} 10^3 uL results) System NRBC # 0.00 0.90 - Below low normal NRBC # [facility] {10^3_u 11.20 Health L} 10^3 uL System ID Date Data Source [id number] 12/29/2016 06:00:00 AM EDT [facility] Name Value Range Interpretation Description Data Sup porting Code Source(s) Document(s ) Sodium 137 137 - Normal (applies Sodium, Serum [facility] [Moles/volume] in mmol/L 145 to non-numeric Health Serum or Plasma mmol/L results) System Potassium 4.5 3.6 - Normal (applies Potassium, [facility] [Mass/volume] in mmol/L 5.0 to non-numeric Serum Health Serum or Plasma mmol/L results) System Chloride 111 98 - Above high Chloride, [facility] [Moles/volume] in mmol/L 107 normal Serum Health Serum or Plasma mmol/L System Carbon dioxide, 18.0 22.0 - Below low normal CO2, Serum [facility] total mmol/L 30.0 Health [Moles/volume] in mmol/L System Serum or Plasma Total Protein 6.6 6.3 - Normal (applies Total Protein [facility] mg/dl 8.2 to non-numeric Health mg/dl results) System Glucose 275 65 - Above high Glucose, [facility] [Mass/volume] in mg/dL 105 normal Serum Health Serum or Plasma mg/dL System Urea nitrogen 33 7 - 18 Above high Blood Urea [facility] [Mass/volume] in mg/dl mg/dl normal Nitrogen, Health Serum or Plasma Serum System Creatinine 1.40 0.70 - Above high Creatinine, [facility] [Mass/volume] in mg/dl 1.20 normal Serum Health Serum or Plasma mg/dl System Alkaline 111 38 - Normal (applies Alkaline [facility] phosphatase {IU/L} 126 to non-numeric Phosphatase, Health isoenzymes IU/L results) Serum System [Enzymatic activity/volume] in Serum or Plasma by Heat stability Bilirubin.total 0.2 0.2 - Normal (applies Bilirubin, [facility] [Mass/volume] in mg/dl 1.3 to non-numeric Serum Total Health Serum or Plasma mg/dl results) System Direct Bilirubin 0.1 0.0 - Normal (applies Direct [facility] mg/dl 0.4 to non-numeric Bilirubin Health mg/dl results) System Aspartate 19 5 - 40 Normal (applies Aspartate [facility] aminotransferase {IU/L} IU/L to non-numeric Transaminase, Heal th [Enzymatic results) Serum System activity/volume] in Serum or Plasma by With P-5'-P Albumin 3.3 3.9 - Below low normal Albumin, [facility] [Mass/volume] in {gm/dl} 5.0 Serum Health Serum or Plasma gm/dl System I. Phosphorus 4.1 2.5 - Normal (applies I. Phosphorus [facility] mg/dl 4.5 to non-numeric Health mg/dl results) System Alanine 22 7 - 56 Normal (applies Alanine [facility] aminotransferase {IU/L} IU/L to non-numeric Aminotransfer Heal th [Enzymatic results) ase, Serum System activity/volume] in Serum or Plasma Calcium 8.6 8.4 - Normal (applies Calcium, [facility] [Mass/volume] in mg/dl 10.2 to non-numeric Total Serum Health Serum or Plasma mg/dl results) System A/G Ratio 1.00 Normal (applies A/G Ratio [facility] to non-numeric Health results) System Urate 4.7 2.5 - Normal (applies Uric Acid, [facility] [Mass/volume] in mg/dl 7.5 to non-numeric Serum Health Serum or Plasma mg/dl results) System Anion gap in Serum 8.00 8.00 - Normal (applies Anion Gap [facility] or Plasma mmol/L 12.00 to non-numeric Health mmol/L results) System Glomerular 38.07 Normal (applies GFR [facility] filtration to non-numeric Health rate/1.73 sq results) System M.predicted [Volume Rate/Area] in Serum or Plasma by Creatinine-based formula (CKD-EPI) eGFR will provide clinicians with a more accurate indicator of renal function then the serum creatinine. The eGFR is automa tically calculated from an empiric formula (endorsed by the [employer] ion) which incorporates age, sex, and race.Clinicians may notice surprisingly low GFR's with serum creatinine valueswithin normal range- particularly in elderly wo men (with low muscle mass).In the hospital setting, the eGFR should add an element of safety in drug dosing, in assessing the risk of IV contrast administration, and in assessing vascular risk.The NKF staging system is as follows:Normal: eGFR >90 with no kidney markersStage 1: eGFR >90 with kidney markers*Stage 2: eGFR 60- 89Stage 3: eGFR 30-59Stage 4: eGFR 15-29Stage 5: eGFR <15 (usually requir ing dialysis)*Markers include: Proteinuria, Hematuria, abnormal imaging-studies, or other blood or urine test abnormalities ID Date Data Source [id number] 12/29/2016 01:04:00 AM EDT [facility] Name Value Range Interpretation Description Data Sup porting Code Source(s) Document(s ) Blood, Negative Normal (applies to Blood, Occult [facility] Occult non-numeric Feces [facility] Feces results) ID Date Data Source [id number] 12/28/2016 06:00:00 AM EDT [facility] Name Value Range Interpretation Description Data Sup porting Code Source(s) Document(s ) Type B Normal (applies Type [facility] to non-numeric [facility] results) D Ab [Titer] Positive Normal (applies Rh [facility] in Serum or to non-numeric Health System Plasma results) Antibody Negative Normal (applies Antibody [facility] Screen to non-numeric Screen Health System results) ID Date Data Source [id number] 12/28/2016 06:00:00 AM EDT [facility] Name Value Range Interpretation Description Data Source(s ) Supporting Code Document(s ) HuS2FRj 345.73 Normal (applies to DvZ2OHi [facility] non-numeric [facility] results) tHbWB 5353.57 Normal (applies to tHbWB [facility] non-numeric [facility] results) %HbA1C 8.06 % 3.00 - Above high normal %HbA1C [facility] 6.50 % Health System ID Date Data Source [id number] 12/28/2016 06:00:00 AM EDT [facility] Name Value Range Interpretation Description Data Sup porting Code Source(s) Document(s ) B-Type 27.8 0.0 - Normal (applies B-Type [facility] Nat[facility]etic pg/mL 101.0 to non-numeric Natriuetic Health Peptide - MV pg/mL results) Peptide - MV System Only Only ID Date Data Source [id number] 12/28/2016 06:00:00 AM EDT [facility] Name Value Range Interpretation Description Data Sup porting Code Source(s) Document(s ) Transferrin 262.0 180.7 - Normal (applies Transferrin, [facility] [Mass/volume] mg/dl 313.7 to non-numeric Serum Health in Serum or mg/dl results) System Plasma ID Date Data Source [id number] 12/28/2016 06:00:00 AM EDT [facility] Name Value Range Interpretation Description Data Sup porting Code Source(s) Document(s ) Iron 33 ug/dL 37 - 170 Below low normal Iron, Serum [facility] [Mass/volu ug/dL Health System me] in Serum or Plasma ID Date Data Source [id number] 12/28/2016 06:00:00 AM EDT [facility] Name Value Range Interpretation Description Data Sup porting Code Source(s) Document(s ) Iron/Iron 313.75 250.00 - Normal (applies Total Iron [facility] binding ug/dL 450.00 to non-numeric Binding Health capacity.tota ug/dL results) Capacity-(RO) System l [Mass Ratio] in Serum or Plasma % Saturation 10.42 % Normal (applies % Saturation [facility] to non-numeric [facility] results) System Iron. 33 ug/dL 45 - 170 Below low normal Iron. [facility] mcg/dL [facility] ug/dL System ID Date Data Source [id number] 12/28/2016 06:00:00 AM EDT [facility] Name Value Range Interpretation Description Data Sup porting Code Source(s) Document(s ) Ferritin 32.3 14.0 - Normal (applies Ferritin, [facility] [Mass/volum ng/ml 235.0 to non-numeric Serum Health System e] in Serum ng/ml results) or Plasma ID Date Data Source [id number] 12/28/2016 06:00:00 AM EDT [facility] Name Value Range Interpretation Description Data Sup porting Code Source(s) Document(s ) Cobalamin 178 143 - Normal (applies Vitamin B12, [facility] (Vitamin pg/ml 716 to non-numeric Serum Health System B12) pg/ml results) [Mass/volume ] in Serum or Plasma ID Date Data Source [id number] 12/28/2016 06:00:00 AM EDT [facility] Name Value Range Interpretation Description Data Sup porting Code Source(s) Document(s ) Folate 12.00 4.20 - Normal (applies Folate, Serum [facility] [Mass/volu ng/ml 19.90 to non-numeric Health System me] in ng/ml results) Serum or Plasma ID Date Data Source [id number] 12/28/2016 03:03:00 AM EDT [facility] Name Value Range Interpretation Description Data Sup porting Code Source(s) Document(s ) Blood, Negative Normal (applies to Blood, Occult [facility] Occult non-numeric Feces [facility] Feces results) ID Date Data Source [id number] 12/28/2016 02:58:00 AM EDT [facility] Name Value Range Interpretation Description Data Sup porting Code Source(s) Document(s ) pH 7.399 7.350 - Normal (applies pH [facility] {pH_unit 7.450 pH to non-numeric Health s} units results) System Carbon dioxide 34.2 32.0 - Normal (applies pCO2, [facility] [Partial {mm_Hg} 45.0 mm to non-numeric Arterial Health pressure] in Hg results) System Arterial blood Oxygen 87.0 83.0 - Normal (applies pO2, Aterial [facility] [Partial {mm_Hg} 108.0 mm to non-numeric Health pressure] in Hg results) System Arterial blood Base Excess. -3.8 -3.0 - Below low normal Base Excess. [facility] mmol/L 3.0 Health mmol/L System Bicarbonate 21.1 20.0 - Normal (applies HCO3 [facility] [Moles/volume] mmol/L 26.0 to non-numeric Health in Venous mmol/L results) System blood TCO2 34.2 24.0 - Above high normal TCO2 [facility] mmol/L 30.0 Health mmol/L System O2 Saturation 97.5 % 95.0 - Normal (applies O2 Saturation [facility] 99.0 % to non-numeric Health results) System Sodium, WB 139 137 - Normal (applies Sodium, WB [facility] mmol/L 145 to non-numeric Health mmol/L results) System Potassium, WB 4.3 3.6 - Normal (applies Potassium, WB [facility] mmol/L 5.0 to non-numeric Health mmol/L results) System Chloride, WB 107 98 - 107 Normal (applies Chloride, WB [facility] mmol/L mmol/L to non-numeric Health results) System Glucose, WB 329 70 - 105 Above high normal Glucose, WB [facility] mg/dL mg/dL [facility] System Ionized 1.15 1.15 - Normal (applies Ionized [facility] Calcium mmol/L 1.29 to non-numeric Calcium Health mmol/L results) System Lactate 1.2 0.5 - Normal (applies Lactate [facility] [Mass/volume] mmol/L 1.6 to non-numeric Health in Serum or mmol/L results) System Plasma ID Date Data Source [id number] 12/27/2016 11:58:00 PM EDT [facility] Name Value Range Interpretation Description Data Sup porting Code Source(s) Document(s ) Type B Normal (applies Type [facility] to non-numeric [facility] results) D Ab [Titer] Positive Normal (applies Rh [facility] in Serum or to non-numeric Health System Plasma results) Antibody Negative Normal (applies Antibody [facility] Screen to non-numeric Screen [facility] System results) ID Date Data Source [id number] 12/27/2016 11:58:00 PM EDT [facility] Name Value Range Interpretation Description Data Sup porting Code Source(s) Document(s ) Color YELLOW Yellow Normal (applies Color [facility] to non-numeric Health results) System Appearance of CLEAR Clear Normal (applies Urine [facility] Urine to non-numeric Appearance Health results) System Specific 1.005 Normal (applies Urine Specific [facility] gravity of to non-numeric [facility] Urine results) System pH.. 6.0 4.6 - 8.0 Normal (applies pH.. [facility] {pH_units} pH units to non-numeric Health results) System Glucose, UA NEGATIVE < 50 Normal (applies Glucose, UA [facility] mg/dl to non-numeric Health results) System Protein NEGATIVE < 30 Normal (applies Protein [facility] [Mass/volume] mg/dl to non-numeric Health in Serum or results) System Plasma Bilirubin NEGATIVE Negative Normal (applies Bilirubin [facility] Urine Sm to Lg to non-numeric Urine Health results) System Urobilinogen 0.2 mg/dL 0.2 - 1.0 Normal (applies Urobilinogen [facility] [Mass/volume] mg/dL to non-numeric UA Health in Urine results) System Ketones NEGATIVE Negative Normal (applies Ketones UA [facility] [Mass/volume] mg/dL to non-numeric Health in Urine results) System Nitrate+Nitrit NEGATIVE Negative Normal (applies Nitrite [facility] Neg/Pos to non-numeric Health [Mass/volume] results) System in Unspecified specimen Leukocyte NEGATIVE Negative Normal (applies Leukocyte [facility] esterase Tr to Lg to non-numeric Esterase Health [Units/volume] results) Concentration System in Urine Leukocytes 0-2 0 - 2 Normal (applies White Blood [facility] [#/volume] in /HPF to non-numeric Cells Health Unspecified results) System specimen by Automated count Red Blood 0-2 0 - 1 Normal (applies Red Blood [facility] Cells /HPF to non-numeric Cells Health results) System Urine Blood NEGATIVE Negative Normal (applies Urine Blood [facility] Sm to Lg to non-numeric Health results) System ID Date Data Source [id number] 12/27/2016 11:58:00 PM EDT [facility] Name Value Range Interpretation Description Data Sup porting Code Source(s) Document(s ) aPTT in Blood 18.5 20.0 - Below low normal Activated [facility] by {Second 30.3 Partial Health Coagulation s} Seconds Thromboplastin System assay Time ID Date Data Source [id number] 12/27/2016 11:58:00 PM EDT [facility] Name Value Range Interpretation Description Data Sup porting Code Source(s) Document(s ) Prothrombin 9.80 9.40 - Normal (applies Prothrombin [facility] time (PT) {seconds 11.30 to non-numeric time (PT) Health } seconds results) System INR in Blood 0.95 0.70 - Normal (applies INR Result [facility] by Coagulation {Ratio} 1.10 to non-numeric Health assay Ratio results) System Normal = 0.7-1.1Therapeutic = 2.0-3.0Mec hanical Heart = 3.0-4.5 ID Date Data Source [id number] 12/27/2016 11:58:00 PM EDT [facility] Name Value Range Interpretation Description Data Sup porting Code Source(s) Document(s ) Leukocytes 8.1 4.8 - Normal (applies WBC Count [facility] [#/volume] in {10^3_uL 10.8 to non-numeric Health Unspecified } 10^3 uL results) System specimen by Automated count Erythrocytes 1.91 3.80 - Below low normal RBC Count [facility] [#/volume] in {10^6_uL 5.20 Health Blood by } 10^6 uL System Automated count Hemoglobin 5.7 12.0 - Below lower panic Hemoglobin [facility] [Mass/volume] {gm/dL} 16.0 limits Health in Blood gm/dL System Result Reporting|Telephone|Lioean|2016 at 1:51 AMCalled to:Silver Name:GloriaTremaine by:[email or web address]/28/2016 / 1:50 AM Hematocrit [Volume 17.4 % 36.0 - 46.0 % Below lower Hematocrit [facility] Fraction] of Blood panic limits System Result Reporting|Telephone|Lioean|2016 at 1:51 AMCalled to:Silver Name:Ousmane by:[email or web address]/28/2016 / 1:50 AM Erythrocyte mean 91.1 fl 83.0 - Normal (applies MCV [facility] corpuscular volume 98.0 fl to non-numeric Health System [Entitic volume] results) by Automated count Erythrocyte mean 29.8 pg 26.0 - Normal (applies MCH [facility] corpuscular 34.0 pg to non-numeric Health System hemoglobin results) [Entitic mass] by Automated count Erythrocyte mean 32.8 33.0 - Below low normal MCHC [facility] corpuscular {gm/dL} 37.0 Health System hemoglobin gm/dL concentration [Mass/volume] by Automated count Erythrocyte 14.6 % 11.5 - Above high RDW-CV [facility] distribution width 14.5 % normal Health Syst em [Entitic volume] by Automated count Platelets 242 130 - 400 Normal (applies Platelet Count [facility] [#/volume] in {10^3_uL} 10^3 uL to non-numeric Health Syst em Plasma by results) Automated count Platelet mean 10.6 fl 7.4 - Above high MPV [facility] volume [Entitic 10.4 fl normal Health System volume] in Blood by Automated count Monocytes 0.5 0.3 - 0.9 Normal (applies Monocyte # [facility] [#/volume] in {10^3_uL} 10^3 uL to non-numeric Health Syst em Blood by Manual results) count Eosinophils 0.16 0.05 - Normal (applies Eosinophil # [facility] [#/volume] in {10^3_uL} 0.30 10^3 to non-numeric Health Syst em Blood uL results) Neutrophils 4.3 2.0 - 8.1 Normal (applies Neutrophil # [facility] [#/volume] in Body {10^3_uL} 10^3 uL to non-numeric Health System fluid results) Basophils 0.03 0.00 - Normal (applies Basophil # [facility] [#/volume] in {10^3_uL} 0.10 10^3 to non-numeric Health Syst em Blood by Automated uL results) count Lymphocyte # 3.1 1.0 - 5.5 Normal (applies Lymphocyte # [facility] {10^3_uL} 10^3 uL to non-numeric Health System results) Neutrophils/100 52.9 % 55.0 - Below low normal Neutrophil % [facility] leukocytes in 75.0 % [facility] System Blood by Automated count Monocytes/100 5.9 % 6.0 - 9.0 Below low normal Monocyte % [facility] leukocytes in % [facility] System Blood Eosinophils/100 2.0 % 0.0 - 4.0 Normal (applies Eosinophil % [facility] leukocytes in % to non-numeric Health Syst em Unspecified results) specimen Basophils/100 0.4 % 0.0 - 1.0 Normal (applies Basophil % [facility] leukocytes in % to non-numeric Health Syst em Unspecified results) specimen by Manual count Lymphocytes 38.3 % 21.0 - Normal (applies Lymphocyte % [facility] [#/volume] in 51.0 % to non-numeric Health Syst em Blood by Automated results) count Immature 0.5 % 0.0 - 0.8 Normal (applies Immature [facility] Granulocytes % % [facility] Nucleated 0.0 0.0 - 0.0 Normal (applies NRBC % [facility] erythrocytes {/100_WBC /100 WBC to non-numeric Health Syste m [#/volume] in Body } results) fluid Immature 0.04 0.00 - Normal (applies Immature [facility] Granulocytes # {10^3_uL} 0.09 10^3 to non-numeric [facility]ulocytes # [facility]) NRBC # 0.00 0.90 - Below low normal NRBC # [facility] {10^3_uL} 11.20 Health System 10^3 uL ID Date Data Source [id number] 12/27/2016 11:58:00 PM EDT [facility] Name Value Range Interpretation Description Data Sup porting Code Source(s) Document(s ) Sodium 139 137 - Normal (applies Sodium, Serum [facility] [Moles/volume] in mmol/L 145 to non-numeric Health Serum or Plasma mmol/L results) System Potassium 4.7 3.6 - Normal (applies Potassium, [facility] [Mass/volume] in mmol/L 5.0 to non-numeric Serum Health Serum or Plasma mmol/L results) System Chloride 107 98 - Normal (applies Chloride, [facility] [Moles/volume] in mmol/L 107 to non-numeric Serum Health Serum or Plasma mmol/L results) System Carbon dioxide, 21.0 22.0 - Below low normal CO2, Serum [facility] total mmol/L 30.0 Health [Moles/volume] in mmol/L System Serum or Plasma Total Protein 7.3 6.3 - Normal (applies Total Protein [facility] mg/dl 8.2 to non-numeric Health mg/dl results) System Glucose 247 65 - Above high Glucose, [facility] [Mass/volume] in mg/dL 105 normal Serum Health Serum or Plasma mg/dL System Urea nitrogen 36 7 - 18 Above high Blood Urea [facility] [Mass/volume] in mg/dl mg/dl normal Nitrogen, Health Serum or Plasma Serum System Creatinine 1.90 0.70 - Above high Creatinine, [facility] [Mass/volume] in mg/dl 1.20 normal Serum Health Serum or Plasma mg/dl System Alkaline 126 38 - Normal (applies Alkaline [facility] phosphatase {IU/L} 126 to non-numeric Phosphatase, Health isoenzymes IU/L results) Serum System [Enzymatic activity/volume] in Serum or Plasma by Heat stability Bilirubin.total < 0.2 0.2 - Normal (applies Bilirubin, [facility] [Mass/volume] in 1.3 to non-numeric Serum Total Health Serum or Plasma mg/dl results) System Direct Bilirubin 0.1 0.0 - Normal (applies Direct [facility] mg/dl 0.4 to non-numeric Bilirubin Health mg/dl results) System Aspartate 24 5 - 40 Normal (applies Aspartate [facility] aminotransferase {IU/L} IU/L to non-numeric Transaminase, Heal [Enzymatic results) Serum System activity/volume] in Serum or Plasma by With P-5'-P Albumin 3.6 3.9 - Below low normal Albumin, [facility] [Mass/volume] in {gm/dl} 5.0 Serum Health Serum or Plasma gm/dl System I. Phosphorus 4.5 2.5 - Normal (applies I. Phosphorus [facility] mg/dl 4.5 to non-numeric Health mg/dl results) System Alanine 24 7 - 56 Normal (applies Alanine [facility] aminotransferase {IU/L} IU/L to non-numeric Aminotransfer Heal th [Enzymatic results) ase, Serum System activity/volume] in Serum or Plasma Calcium 8.7 8.4 - Normal (applies Calcium, [facility] [Mass/volume] in mg/dl 10.2 to non-numeric Total Serum Health Serum or Plasma mg/dl results) System A/G Ratio 0.97 Normal (applies A/G Ratio [facility] to non-numeric Health results) System Urate 5.0 2.5 - Normal (applies Uric Acid, [facility] [Mass/volume] in mg/dl 7.5 to non-numeric Serum Health Serum or Plasma mg/dl results) System Anion gap in Serum 11.00 8.00 - Normal (applies Anion Gap [facility] or Plasma mmol/L 12.00 to non-numeric Health mmol/L results) System Glomerular 26.76 Normal (applies GFR [facility] filtration to non-numeric Health rate/1.73 sq results) System M.predicted [Volume Rate/Area] in Serum or Plasma by Creatinine-based formula (CKD-EPI) eGFR will provide clinicians with a more accurate indicator of renal function then the serum creatinine. The eGFR is automa tically calculated from an empiric formula (endorsed by the [employer] ion) which incorporates age, sex, and race.Clinicians may notice surprisingly low GFR's with serum creatinine valueswithin normal range- particularly in elderly wo men (with low muscle mass).In the hospital setting, the eGFR should add an element of safety in drug dosing, in assessing the risk of IV contrast administration, and in assessing vascular risk.The NKF staging system is as follows:Normal: eGFR >90 with no kidney markersStage 1: eGFR >90 with kidney markers*Stage 2: eGFR 60- 89Stage 3: eGFR 30-59Stage 4: eGFR 15-29Stage 5: eGFR <15 (usually requir ing dialysis)*Markers include: Proteinuria, Hematuria, abnormal imaging-studies, or other blood or urine test abnormalities ID Date Data Source [id number] 11/22/2016 06:00:00 AM EDT [facility] System Name Value Range Interpretation Description Data Sup porting Code Source(s) Document(s ) Leukocytes 6.0 4.8 - Normal (applies WBC Count [facility] [#/volume] in {10^3_u 10.8 to non-numeric Health Unspecified L} 10^3 uL results) System specimen by Automated count Erythrocytes 3.46 3.80 - Below low normal RBC Count [facility] [#/volume] in {10^6_u 5.20 Health Blood by L} 10^6 uL System Automated count Hemoglobin 10.0 12.0 - Below low normal Hemoglobin [facility] [Mass/volume] in {gm/dL} 16.0 Health Blood gm/dL System Hematocrit 30.5 % 36.0 - Below low normal Hematocrit [facility] [Volume 46.0 % Health Fraction] of System Blood Erythrocyte mean 88.2 fl 83.0 - Normal (applies MCV [facility] corpuscular 98.0 fl to non-numeric Health volume [Entitic results) System volume] by Automated count Erythrocyte mean 28.9 pg 26.0 - Normal (applies MCH [facility] corpuscular 34.0 pg to non-numeric Health hemoglobin results) System [Entitic mass] by Automated count Erythrocyte mean 32.8 33.0 - Below low normal MCHC [facility] corpuscular {gm/dL} 37.0 Health hemoglobin gm/dL System concentration [Mass/volume] by Automated count Erythrocyte 12.9 % 11.5 - Normal (applies RDW-CV [facility] distribution 14.5 % to non-numeric Health width [Entitic results) System volume] by Automated count Platelets 316 130 - Normal (applies Platelet Count [facility] [#/volume] in {10^3_u 400 to non-numeric Health Plasma by L} 10^3 uL results) System Automated count Platelet mean 10.2 fl 7.4 - Normal (applies MPV [facility] volume [Entitic 10.4 fl to non-numeric Health volume] in Blood results) System by Automated count Monocytes 0.4 0.3 - Normal (applies Monocyte # [facility] [#/volume] in {10^3_u 0.9 to non-numeric Health Blood by Manual L} 10^3 uL results) System count Eosinophils 0.09 0.05 - Normal (applies Eosinophil # [facility] [#/volume] in {10^3_u 0.30 to non-numeric Health Blood L} 10^3 uL results) System Neutrophils 3.9 2.0 - Normal (applies Neutrophil # [facility] [#/volume] in {10^3_u 8.1 to non-numeric Health Body fluid L} 10^3 uL results) System Basophils 0.04 0.00 - Normal (applies Basophil # [facility] [#/volume] in {10^3_u 0.10 to non-numeric Health Blood by L} 10^3 uL results) System Automated count Lymphocyte # 1.6 1.0 - Normal (applies Lymphocyte # [facility] {10^3_u 5.5 to non-numeric Health L} 10^3 uL results) System Neutrophils/100 64.2 % 55.0 - Normal (applies Neutrophil % [facility] leukocytes in 75.0 % to non-numeric Health Blood by results) System Automated count Monocytes/100 6.0 % 6.0 - Normal (applies Monocyte % [facility] leukocytes in 9.0 % to non-numeric Health Blood results) System Eosinophils/100 1.5 % 0.0 - Normal (applies Eosinophil % [facility] grace leukocytes in 4.0 % to non-numeric Health Unspecified results) System specimen Basophils/100 0.7 % 0.0 - Normal (applies Basophil % [facility] leukocytes in 1.0 % to non-numeric Health Unspecified results) System specimen by Manual count Lymphocytes 27.1 % 21.0 - Normal (applies Lymphocyte % [facility] [#/volume] in 51.0 % to non-numeric Health Blood by results) System Automated count Immature 0.5 % 0.0 - Normal (applies Immature [facility] Granulocytes % 0.8 % to non-numeric Granulocytes % Healt h results) System Nucleated 0.0 0.0 - Normal (applies NRBC % [facility] erythrocytes {/100_W 0.0 to non-numeric Health [#/volume] in BC} /100 results) System Body fluid WBC Immature 0.03 0.00 - Normal (applies Immature [facility] Granulocytes # {10^3_u 0.09 to non-numeric Granulocytes # Healt h L} 10^3 uL results) System NRBC # 0.00 0.90 - Below low normal NRBC # [facility] {10^3_u 11.20 Health L} 10^3 uL System ID Date Data Source [id number] 11/22/2016 06:00:00 AM EDT [facility] System Name Value Range Interpretation Description Data Sup porting Code Source(s) Document(s ) Sodium 137 137 - Normal (applies Sodium, Serum [facility] [Moles/volume] in mmol/L 145 to non-numeric Health Serum or Plasma mmol/L results) System Potassium 4.5 3.6 - Normal (applies Potassium, [facility] [Mass/volume] in mmol/L 5.0 to non-numeric Serum Health Serum or Plasma mmol/L results) System Chloride 101 98 - Normal (applies Chloride, [facility] [Moles/volume] in mmol/L 107 to non-numeric Serum Health Serum or Plasma mmol/L results) System Carbon dioxide, 26.0 22.0 - Normal (applies CO2, Serum [facility] total mmol/L 30.0 to non-numeric Health [Moles/volume] in mmol/L results) System Serum or Plasma Total Protein 7.9 6.3 - Normal (applies Total Protein [facility] mg/dl 8.2 to non-numeric Health mg/dl results) System Glucose 122 65 - Above high Glucose, [facility] [Mass/volume] in mg/dL 105 normal Serum Health Serum or Plasma mg/dL System Urea nitrogen 20 7 - 18 Above high Blood Urea [facility] [Mass/volume] in mg/dl mg/dl normal Nitrogen, Health Serum or Plasma Serum System Creatinine 1.30 0.70 - Above high Creatinine, [facility] [Mass/volume] in mg/dl 1.20 normal Serum Health Serum or Plasma mg/dl System Alkaline 108 38 - Normal (applies Alkaline [facility] phosphatase {IU/L} 126 to non-numeric Phosphatase, Health isoenzymes IU/L results) Serum System [Enzymatic activity/volume] in Serum or Plasma by Heat stability Bilirubin.total 0.2 0.2 - Normal (applies Bilirubin, [facility] [Mass/volume] in mg/dl 1.3 to non-numeric Serum Total Health Serum or Plasma mg/dl results) System Direct Bilirubin 0.1 0.0 - Normal (applies Direct [facility] mg/dl 0.4 to non-numeric Bilirubin Health mg/dl results) System Aspartate 27 5 - 40 Normal (applies Aspartate [facility] aminotransferase {IU/L} IU/L to non-numeric Transaminase, Heal th [Enzymatic results) Serum System activity/volume] in Serum or Plasma by With P-5'-P Albumin 3.4 3.9 - Below low normal Albumin, [facility] [Mass/volume] in {gm/dl} 5.0 Serum Health Serum or Plasma gm/dl System I. Phosphorus 4.3 2.5 - Normal (applies I. Phosphorus [facility] mg/dl 4.5 to non-numeric Health mg/dl results) System Alanine 21 7 - 56 Normal (applies Alanine [facility] aminotransferase {IU/L} IU/L to non-numeric Aminotransfer Heal th [Enzymatic results) ase, Serum System activity/volume] in Serum or Plasma Calcium 9.1 8.4 - Normal (applies Calcium, [facility] [Mass/volume] in mg/dl 10.2 to non-numeric Total Serum Health Serum or Plasma mg/dl results) System A/G Ratio 0.76 Normal (applies A/G Ratio [facility] to non-numeric Health results) System Urate 5.5 2.5 - Normal (applies Uric Acid, [facility] [Mass/volume] in mg/dl 7.5 to non-numeric Serum Health Serum or Plasma mg/dl results) System Anion gap in Serum 10.00 8.00 - Normal (applies Anion Gap [facility] grace or Plasma mmol/L 12.00 to non-numeric Health mmol/L results) System Glomerular 41.48 Normal (applies GFR [facility] filtration to non-numeric Health rate/1.73 sq results) System M.predicted [Volume Rate/Area] in Serum or Plasma by Creatinine-based formula (CKD-EPI) eGFR will provide clinicians with a more accurate indicator of renal function then the serum creatinine. The eGFR is automa tically calculated from an empiric formula (endorsed by the National [employer] ion) which incorporates age, sex, and race.Clinicians may notice surprisingly low GFR's with serum creatinine valueswithin normal range- particularly in elderly wo men (with low muscle mass).In the hospital setting, the eGFR should add an element of safety in drug dosing, in assessing the risk of IV contrast administration, and in assessing vascular risk.The NKF staging system is as follows:Normal: eGFR >90 with no kidney markersStage 1: eGFR >90 with kidney markers*Stage 2: eGFR 60- 89Stage 3: eGFR 30-59Stage 4: eGFR 15-29Stage 5: eGFR <15 (usually requir ing dialysis)*Markers include: Proteinuria, Hematuria, abnormal imaging-studies, or other blood or urine test abnormalities ID Date Data Source [id number] 11/22/2016 06:00:00 AM EDT [facility] System Name Value Range Interpretation Description Data Sup porting Code Source(s) Document(s ) Magnesium 1.6 1.7 - Below low normal Magnesium, [facility] [Mass/volume {mEq/L} 2.2 Serum Health System ] in Serum mEq/L or Plasma ID Date Data Source [id number] 11/21/2016 01:40:00 PM EDT [facility] System Name Value Range Interpretation Description Data Sup porting Code Source(s) Document(s ) Color YELLOW Yellow Normal (applies Color [facility] to non-numeric Health results) System Appearance of CLEAR Clear Normal (applies Urine [facility] Urine to non-numeric Appearance Health results) System Specific 1.015 1.001 - Normal (applies Urine Specific [facility] gravity of 1.035 to non-numeric [facility] Urine results) System pH.. 6.0 4.6 - 8.0 Normal (applies pH.. [facility] {pH_units} pH units to non-numeric Health results) System Glucose, UA NEGATIVE < 50 Normal (applies Glucose, UA [facility] mg/dl to non-numeric Health results) System Protein 100 mg/dl < 30 Normal (applies Protein [facility] [Mass/volume] mg/dl to non-numeric Health in Serum or results) System Plasma Bilirubin NEGATIVE Negative Normal (applies Bilirubin [facility] Urine Sm to Lg to non-numeric Urine Health results) System Urobilinogen 0.2 mg/dL 0.2 - 1.0 Normal (applies Urobilinogen [facility] [Mass/volume] mg/dL to non-numeric UA [facility] in Urine results) System Ketones NEGATIVE Negative Normal (applies Ketones UA [facility] [Mass/volume] mg/dL to non-numeric Health in Urine results) System Nitrate+Nitrit NEGATIVE Negative Normal (applies Nitrite [facility] Neg/Pos to non-numeric Health [Mass/volume] results) System in Unspecified specimen Leukocyte NEGATIVE Negative Normal (applies Leukocyte [facility] esterase Tr to Lg to non-numeric Esterase Health [Units/volume] results) Concentration System in Urine Leukocytes 3 {/HPF} 0 - 2 Normal (applies White Blood [facility] [#/volume] in /HPF to non-numeric Cells Health Unspecified results) System specimen by Automated count Red Blood 1 {/HPF} 0 - 1 Normal (applies Red Blood [facility] Cells /HPF to non-numeric Cells Health results) System Epithelial 10 {/HPF} 0 - 3 Normal (applies Epithelial [facility] cells /HPF to non-numeric Cells Health [Presence] in results) System Unspecified specimen by Wet preparation Bacteria 1+ 0 - 1+ Abnormal Bacteria [facility] [Presence] in /HPF (applies to Health Unspecified non-numeric System specimen results) Urine Blood NEGATIVE Negative Normal (applies Urine Blood [facility] Sm to Lg to non-numeric Health results) System ID Date Data Source [id number] 11/21/2016 10:21:00 AM EDT [facility] System Name Value Range Interpretation Description Data Sup porting Code Source(s) Document(s ) Bacteria NO GROWTH Culture [facility] identified in Bacteria Blood Health Syst em Blood by [facility] culture ID Date Data Source [id number] 11/21/2016 10:21:00 AM EDT [facility] System Name Value Range Interpretation Description Data Sup porting Code Source(s) Document(s ) Bacteria NO GROWTH Culture [facility] identified in Bacteria Blood Health Syst em Blood by [facility] culture ID Date Data Source [id number] 11/21/2016 06:00:00 AM EDT [facility] System Name Value Range Interpretation Description Data Sup porting Code Source(s) Document(s ) Lactic 1.43 0.70 - Normal (applies Lactic Acid, [facility] Acid, {mEq/L} 2.10 to non-numeric Plasma *[facility] Syst em Plasma mEq/L results) KI ONLY* *[facility] ONLY* ID Date Data Source [id number] 11/21/2016 06:00:00 AM EDT [facility] System Name Value Range Interpretation Description Data Sup porting Code Source(s) Document(s ) Leukocytes 6.5 4.8 - Normal (applies WBC Count [facility] [#/volume] in {10^3_u 10.8 to non-numeric Health Unspecified L} 10^3 uL results) System specimen by Automated count Erythrocytes 3.90 3.80 - Normal (applies RBC Count [facility] [#/volume] in {10^6_u 5.20 to non-numeric Health Blood by L} 10^6 uL results) System Automated count Hemoglobin 11.6 12.0 - Below low normal Hemoglobin [facility] [Mass/volume] in {gm/dL} 16.0 Health Blood gm/dL System Hematocrit 34.4 % 36.0 - Below low normal Hematocrit [facility] [Volume 46.0 % Health Fraction] of System Blood Erythrocyte mean 88.2 fl 83.0 - Normal (applies MCV [facility] corpuscular 98.0 fl to non-numeric Health volume [Entitic results) System volume] by Automated count Erythrocyte mean 29.7 pg 26.0 - Normal (applies MCH [facility] corpuscular 34.0 pg to non-numeric Health hemoglobin results) System [Entitic mass] by Automated count Erythrocyte mean 33.7 33.0 - Normal (applies MCHC [facility] corpuscular {gm/dL} 37.0 to non-numeric Health hemoglobin gm/dL results) System concentration [Mass/volume] by Automated count Erythrocyte 13.2 % 11.5 - Normal (applies RDW-CV [facility] distribution 14.5 % to non-numeric Health width [Entitic results) System volume] by Automated count Platelets 235 130 - Normal (applies Platelet Count [facility] [#/volume] in {10^3_u 400 to non-numeric Health Plasma by L} 10^3 uL results) System Automated count Platelet mean 11.6 fl 7.4 - Above high MPV [facility] volume [Entitic 10.4 fl normal Health volume] in Blood System by Automated count Monocytes 0.3 0.3 - Below low normal Monocyte # [facility] [#/volume] in {10^3_u 0.9 Health Blood by Manual L} 10^3 uL System count Eosinophils 0.09 0.05 - Normal (applies Eosinophil # [facility] [#/volume] in {10^3_u 0.30 to non-numeric Health Blood L} 10^3 uL results) System Neutrophils 4.3 2.0 - Normal (applies Neutrophil # [facility] [#/volume] in {10^3_u 8.1 to non-numeric Health Body fluid L} 10^3 uL results) System Basophils 0.04 0.00 - Normal (applies Basophil # [facility] [#/volume] in {10^3_u 0.10 to non-numeric Health Blood by L} 10^3 uL results) System Automated count Lymphocyte # 1.8 1.0 - Normal (applies Lymphocyte # [facility] {10^3_u 5.5 to non-numeric Health L} 10^3 uL results) System Neutrophils/100 65.9 % 55.0 - Normal (applies Neutrophil % [facility] leukocytes in 75.0 % to non-numeric Health Blood by results) System Automated count Monocytes/100 4.0 % 6.0 - Below low normal Monocyte % [facility] leukocytes in 9.0 % Health Blood System Eosinophils/100 1.4 % 0.0 - Normal (applies Eosinophil % [facility] grace leukocytes in 4.0 % to non-numeric Health Unspecified results) System specimen Basophils/100 0.6 % 0.0 - Normal (applies Basophil % [facility] leukocytes in 1.0 % to non-numeric Health Unspecified results) System specimen by Manual count Lymphocytes 27.6 % 21.0 - Normal (applies Lymphocyte % [facility] [#/volume] in 51.0 % to non-numeric Health Blood by results) System Automated count Immature 6.90 % 0.90 - Normal (applies Immature [facility] Platelet 11.20 % to non-numeric Platelet Health Fraction results) Fraction System Immature 0.5 % 0.0 - Normal (applies Immature [facility] Granulocytes % 0.8 % to non-numeric Granulocytes % Healt h results) System Nucleated 0.0 0.0 - Normal (applies NRBC % [facility] erythrocytes {/100_W 0.0 to non-numeric Health [#/volume] in BC} /100 results) System Body fluid WBC Immature 0.03 0.00 - Normal (applies Immature [facility] Granulocytes # {10^3_u 0.09 to non-numeric Granulocytes # Healt h L} 10^3 uL results) System NRBC # 0.00 0.90 - Below low normal NRBC # [facility] {10^3_u 11.20 Health L} 10^3 uL System ID Date Data Source [id number] 11/21/2016 06:00:00 AM EDT [facility] System Name Value Range Interpretation Description Data Sup porting Code Source(s) Document(s ) Sodium 134 137 - Below low normal Sodium, Serum [facility] [Moles/volume] in mmol/L 145 Health Serum or Plasma mmol/L System Potassium 4.4 3.6 - Normal (applies Potassium, [facility] [Mass/volume] in mmol/L 5.0 to non-numeric Serum Health Serum or Plasma mmol/L results) System Chloride 100 98 - Normal (applies Chloride, [facility] [Moles/volume] in mmol/L 107 to non-numeric Serum Health Serum or Plasma mmol/L results) System Carbon dioxide, 26.0 22.0 - Normal (applies CO2, Serum [facility] total mmol/L 30.0 to non-numeric Health [Moles/volume] in mmol/L results) System Serum or Plasma Total Protein 7.6 6.3 - Normal (applies Total Protein [facility] mg/dl 8.2 to non-numeric Health mg/dl results) System Glucose 208 65 - Above high Glucose, [facility] [Mass/volume] in mg/dL 105 normal Serum Health Serum or Plasma mg/dL System Urea nitrogen 14 7 - 18 Normal (applies Blood Urea [facility] [Mass/volume] in mg/dl mg/dl to non-numeric Nitrogen, Health Serum or Plasma results) Serum System Creatinine 1.20 0.70 - Normal (applies Creatinine, [facility] [Mass/volume] in mg/dl 1.20 to non-numeric Serum Health Serum or Plasma mg/dl results) System Alkaline 108 38 - Normal (applies Alkaline [facility] phosphatase {IU/L} 126 to non-numeric Phosphatase, Health isoenzymes IU/L results) Serum System [Enzymatic activity/volume] in Serum or Plasma by Heat stability Bilirubin.total 0.2 0.2 - Normal (applies Bilirubin, [facility] [Mass/volume] in mg/dl 1.3 to non-numeric Serum Total Health Serum or Plasma mg/dl results) System Direct Bilirubin 0.1 0.0 - Normal (applies Direct [facility] mg/dl 0.4 to non-numeric Bilirubin Health mg/dl results) System Aspartate 18 5 - 40 Normal (applies Aspartate [facility] aminotransferase {IU/L} IU/L to non-numeric Transaminase, Heal th [Enzymatic results) Serum System activity/volume] in Serum or Plasma by With P-5'-P Albumin 3.3 3.9 - Below low normal Albumin, [facility] [Mass/volume] in {gm/dl} 5.0 Serum Health Serum or Plasma gm/dl System I. Phosphorus 3.0 2.5 - Normal (applies I. Phosphorus [facility] mg/dl 4.5 to non-numeric Health mg/dl results) System Alanine 14 7 - 56 Normal (applies Alanine [facility] aminotransferase {IU/L} IU/L to non-numeric Aminotransfer Heal th [Enzymatic results) ase, Serum System activity/volume] in Serum or Plasma Calcium 8.8 8.4 - Normal (applies Calcium, [facility] [Mass/volume] in mg/dl 10.2 to non-numeric Total Serum Health Serum or Plasma mg/dl results) System A/G Ratio 0.77 Normal (applies A/G Ratio [facility] to non-numeric Health results) System Urate 5.1 2.5 - Normal (applies Uric Acid, [facility] [Mass/volume] in mg/dl 7.5 to non-numeric Serum Health Serum or Plasma mg/dl results) System Anion gap in Serum 8.00 8.00 - Normal (applies Anion Gap [facility] or Plasma mmol/L 12.00 to non-numeric Health mmol/L results) System Glomerular 45.49 Normal (applies GFR [facility] filtration to non-numeric Health rate/1.73 sq results) System M.predicted [Volume Rate/Area] in Serum or Plasma by Creatinine-based formula (CKD-EPI) eGFR will provide clinicians with a more accurate indicator of renal function then the serum creatinine. The eGFR is automa tically calculated from an empiric formula (endorsed by the National Kidney [employer] ion) which incorporates age, sex, and race.Clinicians may notice surprisingly low GFR's with serum creatinine valueswithin normal range- particularly in elderly wo men (with low muscle mass).In the hospital setting, the eGFR should add an element of safety in drug dosing, in assessing the risk of IV contrast administration, and in assessing vascular risk.The NKF staging system is as follows:Normal: eGFR >90 with no kidney markersStage 1: eGFR >90 with kidney markers*Stage 2: eGFR 60- 89Stage 3: eGFR 30-59Stage 4: eGFR 15-29Stage 5: eGFR <15 (usually requir ing dialysis)*Markers include: Proteinuria, Hematuria, abnormal imaging-studies, or other blood or urine test abnormalities ID Date Data Source [id number] 11/21/2016 06:00:00 AM EDT [facility] System Name Value Range Interpretation Description Data Sup porting Code Source(s) Document(s ) Magnesium 1.4 1.7 - Below low normal Magnesium, [facility] [Mass/volume {mEq/L} 2.2 Serum Health System ] in Serum mEq/L or Plasma ID Date Data Source [id number] 11/20/2016 06:00:00 AM EDT [facility] Name Value Range Interpretation Description Data Sup porting Code Source(s) Document(s ) Hepatitis SEE TEXT Not Normal (applies Hepatitis C [facility] C Viral DetectedReference to non-numeric Viral RNA Health RNA Range: Not results) Genotype System Genotype DetectedWe were LiPA LiPA unable to obtain a genotype from this sample. Themost common reasons for failure to genotype are insufficientviral load, mutations in the viral genome at the assaypriming sites, and presence of inhibitory substance in thesample. Please correlate this result with any recent viralload for this patient and resubmit if clinically warranted.A minimum viral load of 300 IU/mL is required for testing.The method used in this test is RT-PCR and reversehybridizatio n (Line Probe) of the 5' UTR and core region ofthe HCV genome.This test was developed and its analytical performance characteristics have been determined by [facility].It has not been cleared or approved by FDA. This assay hasbeen validated pursuant to the CLIA regulations and is used for clinical purposes.Test Performed at:[facility], [place], [place] [address]Alvaro Cuba M.D. ID Date Data Source [id number] 11/20/2016 06:00:00 AM EDT [facility] System Name Value Range Interpretation Description Data Sup porting Code Source(s) Document(s ) Hepatitis C <15 Not Normal (applies Hepatitis C [facility] Viral RNA Detected to non-numeric Viral RNA Health results) System Hepatitis C <1.18 Not Normal (applies Hepatitis C [facility] Viral RNA DetectedThe to non-numeric Viral RNA Health Quantitative analytical results) Quantitative System performance characteristics of thisassay have been determined by [facility].The modifications have not been cleared or approved bythe FDA. This assay has been validated pursuant to theCLIA regulations and is used for clinical purposes.This test was performed using the CLAIR(R)AmpliPr ep/CLAIR(R)TaqM an(R)HCV Test, v2.0.For more information on this test, go to:[email or web address](This link is being provided for informational/e ducational purposes only.)Test Performed at:[facility], [place], [place] [address]Vjhzdvsjbreonna Cuba M.D. ID Date Data Source [id number] 11/20/2016 06:00:00 AM EDT [facility] System Name Value Range Interpretation Description Data Sup porting Code Source(s) Document(s ) Leukocytes 10.8 4.8 - Normal (applies WBC Count [facility] [#/volume] in {10^3_u 10.8 to non-numeric Health Unspecified L} 10^3 uL results) System specimen by Automated count Erythrocytes 3.29 3.80 - Below low normal RBC Count [facility] [#/volume] in {10^6_u 5.20 Health Blood by L} 10^6 uL System Automated count Hemoglobin 9.6 12.0 - Below low normal Hemoglobin [facility] [Mass/volume] in {gm/dL} 16.0 Health Blood gm/dL System Hematocrit 28.6 % 36.0 - Below low normal Hematocrit [facility] [Volume 46.0 % Health Fraction] of System Blood Erythrocyte mean 86.9 fl 83.0 - Normal (applies MCV [facility] corpuscular 98.0 fl to non-numeric Health volume [Entitic results) System volume] by Automated count Erythrocyte mean 29.2 pg 26.0 - Normal (applies MCH [facility] corpuscular 34.0 pg to non-numeric Health hemoglobin results) System [Entitic mass] by Automated count Erythrocyte mean 33.6 33.0 - Normal (applies MCHC [facility] corpuscular {gm/dL} 37.0 to non-numeric Health hemoglobin gm/dL results) System concentration [Mass/volume] by Automated count Erythrocyte 13.2 % 11.5 - Normal (applies RDW-CV [facility] distribution 14.5 % to non-numeric Health width [Entitic results) System volume] by Automated count Platelets 261 130 - Normal (applies Platelet Count [facility] [#/volume] in {10^3_u 400 to non-numeric Health Plasma by L} 10^3 uL results) System Automated count Platelet mean 10.5 fl 7.4 - Above high MPV [facility] volume [Entitic 10.4 fl normal Health volume] in Blood System by Automated count Monocytes 0.5 0.3 - Normal (applies Monocyte # [facility] [#/volume] in {10^3_u 0.9 to non-numeric Health Blood by Manual L} 10^3 uL results) System count Eosinophils 0.10 0.05 - Normal (applies Eosinophil # [facility] [#/volume] in {10^3_u 0.30 to non-numeric Health Blood L} 10^3 uL results) System Neutrophils 8.0 2.0 - Normal (applies Neutrophil # [facility] [#/volume] in {10^3_u 8.1 to non-numeric Health Body fluid L} 10^3 uL results) System Basophils 0.02 0.00 - Normal (applies Basophil # [facility] [#/volume] in {10^3_u 0.10 to non-numeric Health Blood by L} 10^3 uL results) System Automated count Lymphocyte # 2.1 1.0 - Normal (applies Lymphocyte # [facility] {10^3_u 5.5 to non-numeric Health L} 10^3 uL results) System Neutrophils/100 74.3 % 55.0 - Normal (applies Neutrophil % Ubal[facility] grace leukocytes in 75.0 % to non-numeric Health Blood by results) System Automated count Monocytes/100 4.3 % 6.0 - Below low normal Monocyte % [facility] leukocytes in 9.0 % Health Blood System Eosinophils/100 0.9 % 0.0 - Normal (applies Eosinophil % Ubaldo grace leukocytes in 4.0 % to non-numeric Health Unspecified results) System specimen Basophils/100 0.2 % 0.0 - Normal (applies Basophil % [facility] leukocytes in 1.0 % to non-numeric Health Unspecified results) System specimen by Manual count Lymphocytes 19.7 % 21.0 - Below low normal Lymphocyte % [facility] [#/volume] in 51.0 % Health Blood by System Automated count Immature 0.6 % 0.0 - Normal (applies Immature [facility] Granulocytes % 0.8 % to non-numeric Granulocytes % Healt h results) System Nucleated 0.0 0.0 - Normal (applies NRBC % [facility] erythrocytes {/100_W 0.0 to non-numeric Health [#/volume] in BC} /100 results) System Body fluid WBC Immature 0.07 0.00 - Normal (applies Immature [facility] Granulocytes # {10^3_u 0.09 to non-numeric Granulocytes # [facility]alt h L} 10^3 uL results) System NRBC # 0.00 0.90 - Below low normal NRBC # [facility] {10^3_u 11.20 Health L} 10^3 uL System ID Date Data Source [id number] 11/20/2016 06:00:00 AM EDT [facility] Name Value Range Interpretation Description Data Sup porting Code Source(s) Document(s ) Sodium 139 137 - Normal (applies Sodium, Serum [facility] [Moles/volume] in mmol/L 145 to non-numeric Health Serum or Plasma mmol/L results) System Potassium 3.6 3.6 - Normal (applies Potassium, [facility] [Mass/volume] in mmol/L 5.0 to non-numeric Serum Health Serum or Plasma mmol/L results) System Chloride 106 98 - Normal (applies Chloride, [facility] [Moles/volume] in mmol/L 107 to non-numeric Serum Health Serum or Plasma mmol/L results) System Carbon dioxide, 17.0 22.0 - Below low normal CO2, Serum [facility] total mmol/L 30.0 Health [Moles/volume] in mmol/L System Serum or Plasma Total Protein 7.5 6.3 - Normal (applies Total Protein [facility] mg/dl 8.2 to non-numeric Health mg/dl results) System Glucose 145 65 - Above high Glucose, [facility] [Mass/volume] in mg/dL 105 normal Serum Health Serum or Plasma mg/dL System Urea nitrogen 15 7 - 18 Normal (applies Blood Urea [facility] [Mass/volume] in mg/dl mg/dl to non-numeric Nitrogen, Health Serum or Plasma results) Serum System Creatinine 1.20 0.70 - Normal (applies Creatinine, [facility] [Mass/volume] in mg/dl 1.20 to non-numeric Serum Health Serum or Plasma mg/dl results) System Alkaline 102 38 - Normal (applies Alkaline [facility] phosphatase {IU/L} 126 to non-numeric Phosphatase, Health isoenzymes IU/L results) Serum System [Enzymatic activity/volume] in Serum or Plasma by Heat stability Bilirubin.total 0.2 0.2 - Normal (applies Bilirubin, [facility] [Mass/volume] in mg/dl 1.3 to non-numeric Serum Total Health Serum or Plasma mg/dl results) System Direct Bilirubin 0.1 0.0 - Normal (applies Direct [facility] mg/dl 0.4 to non-numeric Bilirubin Health mg/dl results) System Aspartate 16 5 - 40 Normal (applies Aspartate [facility] aminotransferase {IU/L} IU/L to non-numeric Transaminase, Heal th [Enzymatic results) Serum System activity/volume] in Serum or Plasma by With P-5'-P Albumin 3.2 3.9 - Below low normal Albumin, [facility] [Mass/volume] in {gm/dl} 5.0 Serum Health Serum or Plasma gm/dl System I. Phosphorus 3.5 2.5 - Normal (applies I. Phosphorus [facility] mg/dl 4.5 to non-numeric Health mg/dl results) System Alanine 16 7 - 56 Normal (applies Alanine [facility] aminotransferase {IU/L} IU/L to non-numeric Aminotransfer [facility]al th [Enzymatic results) ase, Serum System activity/volume] in Serum or Plasma Calcium 8.5 8.4 - Normal (applies Calcium, [facility] [Mass/volume] in mg/dl 10.2 to non-numeric Total Serum Health Serum or Plasma mg/dl results) System A/G Ratio 0.74 Normal (applies A/G Ratio [facility] to non-numeric Health results) System Urate 5.3 2.5 - Normal (applies Uric Acid, [facility] [Mass/volume] in mg/dl 7.5 to non-numeric Serum Health Serum or Plasma mg/dl results) System Anion gap in Serum 16.00 8.00 - Above high Anion Gap [facility] or Plasma mmol/L 12.00 normal Health mmol/L System Glomerular 45.50 Normal (applies GFR [facility] filtration to non-numeric Health rate/1.73 sq results) System M.predicted [Volume Rate/Area] in Serum or Plasma by Creatinine-based formula (CKD-EPI) eGFR will provide clinicians with a more accurate indicator of renal function then the serum creatinine. The eGFR is automa tically calculated from an empiric formula (endorsed by the [employer] ion) which incorporates age, sex, and race.Clinicians may notice surprisingly low GFR's with serum creatinine valueswithin normal range- particularly in elderly wo men (with low muscle mass).In the hospital setting, the eGFR should add an element of safety in drug dosing, in assessing the risk of IV contrast administration, and in assessing vascular risk.The NKF staging system is as follows:Normal: eGFR >90 with no kidney markersStage 1: eGFR >90 with kidney markers*Stage 2: eGFR 60- 89Stage 3: eGFR 30-59Stage 4: eGFR 15-29Stage 5: eGFR <15 (usually requir ing dialysis)*Markers include: Proteinuria, Hematuria, abnormal imaging-studies, or other blood or urine test abnormalities ID Date Data Source [id number] 11/20/2016 06:00:00 AM EDT [facility] System Name Value Range Interpretation Description Data Sup porting Code Source(s) Document(s ) Magnesium 2.6 1.7 - Above high normal Magnesium, [facility] [Mass/volume {mEq/L} 2.2 Serum Health System ] in Serum mEq/L or Plasma ID Date Data Source [id number] 11/19/2016 05:25:00 PM EDT [facility] System Name Value Range Interpretation Description Data Sup porting Code Source(s) Document(s ) Lactate 136 125 - Normal (applies Lactate [facility] dehydrogenase {IU/L} 243 to non-numeric Dehydrogenase Health [Enzymatic IU/L results) , Serum System activity/volume] in Serum or Plasma ID Date Data Source [id number] 11/19/2016 06:00:00 AM EDT [facility] System Name Value Range Interpretation Description Data Sup porting Code Source(s) Document(s ) Hepatitis C Cancelled Hepatitis C [facility] Viral RNA duplicate Viral RNA Health Genotype order. Genotype LiPA System LiPA ID Date Data Source [id number] 11/19/2016 06:00:00 AM EDT [facility] System Name Value Range Interpretation Description Data Sup porting Code Source(s) Document(s ) Hepatitis C Cancelled Hepatitis C [facility] Viral RNA duplicate Viral RNA Health order. System Hepatitis C Cancelled Hepatitis C [facility] Viral RNA duplicate Viral RNA Health Quantitative order. Quantitative System ID Date Data Source [id number] 11/19/2016 06:00:00 AM EDT [facility] Name Value Range Interpretation Description Data Source(s ) Supporting Code Document(s ) [id number] 192.16 Normal (applies to [id number] [facility] non-numeric Health System results) tHbWB 2500.34 Normal (applies to tHbWB [facility] non-numeric [facility] System results) %HbA1C 9.18 % 3.00 - Above high normal %HbA1C [facility] 6.50 % Health System ID Date Data Source [id number] 11/19/2016 06:00:00 AM EDT [facility] Name Value Range Interpretation Description Data Sup porting Code Source(s) Document(s ) Erythrocyte 119 0 - 20 Above high Sedimentation [facility] sedimentation {mmlhr} mmlhr normal Rate, Health rate by 2H Erythrocyte System Westergren method ID Date Data Source [id number] 11/19/2016 06:00:00 AM EDT [facility] Name Value Range Interpretation Description Data Sup porting Code Source(s) Document(s ) Anisocytosis Slight Normal (applies Anisocytosis [facility] [Presence] in to non-numeric Health Blood by results) System Automated count Polys 87 % 55 - 75 Above high Polys [facility] % normal Health System Lymphocyte %. 11 % 21 - 51 Below low normal Lymphocyte %. Ubaldo grace % Health System Platelets Adequate Normal (applies Platelet Count [facility] [#/volume] in to non-numeric Estimate Health Blood by results) System Estimate Monocyte %. 2 % 6 - 9 % Below low normal Monocyte %. [facility] Hypochroma Slight Normal (applies Hypochroma [facility] to non-numeric Health results) System OVAL Few Normal (applies OVAL [facility] to non-numeric Health results) System ID Date Data Source [id number] 11/19/2016 06:00:00 AM EDT [facility] Name Value Range Interpretation Description Data Sup porting Code Source(s) Document(s ) Leukocytes 13.4 4.8 - Above high WBC Count [facility] [#/volume] in {10^3_u 10.8 normal Health Unspecified L} 10^3 uL System specimen by Automated count Erythrocytes 3.13 3.80 - Below low normal RBC Count [facility] [#/volume] in {10^6_u 5.20 Health Blood by L} 10^6 uL System Automated count Hemoglobin 9.2 12.0 - Below low normal Hemoglobin [facility] [Mass/volume] in {gm/dL} 16.0 Health Blood gm/dL System Hematocrit 27.2 % 36.0 - Below low normal Hematocrit [facility] [Volume 46.0 % Health Fraction] of System Blood Erythrocyte mean 86.9 fl 83.0 - Normal (applies MCV [facility] corpuscular 98.0 fl to non-numeric Health volume [Entitic results) System volume] by Automated count Erythrocyte mean 29.4 pg 26.0 - Normal (applies MCH [facility] corpuscular 34.0 pg to non-numeric Health hemoglobin results) System [Entitic mass] by Automated count Erythrocyte mean 33.8 33.0 - Normal (applies MCHC [facility] corpuscular {gm/dL} 37.0 to non-numeric Health hemoglobin gm/dL results) System concentration [Mass/volume] by Automated count Erythrocyte 13.4 % 11.5 - Normal (applies RDW-CV [facility] distribution 14.5 % to non-numeric Health width [Entitic results) System volume] by Automated count Platelets 249 130 - Normal (applies Platelet Count [facility] [#/volume] in {10^3_u 400 to non-numeric Health Plasma by L} 10^3 uL results) System Automated count Platelet mean 10.6 fl 7.4 - Above high MPV [facility] volume [Entitic 10.4 fl normal Health volume] in Blood System by Automated count Monocytes 0.5 0.3 - Normal (applies Monocyte # [facility] [#/volume] in {10^3_u 0.9 to non-numeric Health Blood by Manual L} 10^3 uL results) System count Eosinophils 0.03 0.05 - Below low normal Eosinophil # [facility] [#/volume] in {10^3_u 0.30 Health Blood L} 10^3 uL System Neutrophils 10.8 2.0 - Above high Neutrophil # [facility] [#/volume] in {10^3_u 8.1 normal Health Body fluid L} 10^3 uL System Basophils 0.02 0.00 - Normal (applies Basophil # [facility] [#/volume] in {10^3_u 0.10 to non-numeric Health Blood by L} 10^3 uL results) System Automated count Lymphocyte # 2.0 1.0 - Normal (applies Lymphocyte # [facility] {10^3_u 5.5 to non-numeric Health L} 10^3 uL results) System Neutrophils/100 81.0 % 55.0 - Above high Neutrophil % [facility] leukocytes in 75.0 % normal Health Blood by System Automated count Monocytes/100 3.4 % 6.0 - Below low normal Monocyte % [facility] leukocytes in 9.0 % Health Blood System Eosinophils/100 0.2 % 0.0 - Normal (applies Eosinophil % Ubaldo grace leukocytes in 4.0 % to non-numeric Health Unspecified results) System specimen Basophils/100 0.1 % 0.0 - Normal (applies Basophil % [facility] leukocytes in 1.0 % to non-numeric Health Unspecified results) System specimen by Manual count Lymphocytes 14.9 % 21.0 - Below low normal Lymphocyte % [facility] [#/volume] in 51.0 % Health Blood by System Automated count Immature 0.4 % 0.0 - Normal (applies Immature [facility] Granulocytes % 0.8 % to non-numeric Granulocytes % Healt h results) System Nucleated 0.0 0.0 - Normal (applies NRBC % [facility] erythrocytes {/100_W 0.0 to non-numeric Health [#/volume] in BC} /100 results) System Body fluid WBC Immature 0.06 0.00 - Normal (applies Immature [facility] Granulocytes # {10^3_u 0.09 to non-numeric Granulocytes # Healt h L} 10^3 uL results) System NRBC # 0.00 0.90 - Below low normal NRBC # [facility] {10^3_u 11.20 Health L} 10^3 uL System ID Date Data Source [id number] 11/19/2016 06:00:00 AM EDT [facility] System Name Value Range Interpretation Description Data Sup porting Code Source(s) Document(s ) HIV test, NONREACTIVE Normal Normal (applies HIV test, [facility] Routine Range: Non to non-numeric Routine Health (antigen ReactiveNegative results) (antigen and System and for HIV-1 antigen antibody antibody and HIV-1/HIV-2 testing) testing) antibodies. No laboratory evidence of HIV infection.Test was performed at [address], [place]. ID Date Data Source [id number] 11/19/2016 06:00:00 AM [facility] System Name Value Range Interpretation Description Data Sup porting Code Source(s) Document(s ) Sodium 136 137 - Below low normal Sodium, Serum [facility] [Moles/volume] in mmol/L 145 Health Serum or Plasma mmol/L System Potassium 3.6 3.6 - Normal (applies Potassium, [facility] [Mass/volume] in mmol/L 5.0 to non-numeric Serum Health Serum or Plasma mmol/L results) System Chloride 104 98 - Normal (applies Chloride, [facility] [Moles/volume] in mmol/L 107 to non-numeric Serum Health Serum or Plasma mmol/L results) System Carbon dioxide, 19.0 22.0 - Below low normal CO2, Serum [facility] total mmol/L 30.0 Health [Moles/volume] in mmol/L System Serum or Plasma Total Protein 7.4 6.3 - Normal (applies Total Protein [facility] mg/dl 8.2 to non-numeric Health mg/dl results) System Glucose 425 65 - Above high Glucose, [facility] [Mass/volume] in mg/dL 105 normal Serum Health Serum or Plasma mg/dL System Urea nitrogen 17 7 - 18 Normal (applies Blood Urea [facility] [Mass/volume] in mg/dl mg/dl to non-numeric Nitrogen, Health Serum or Plasma results) Serum System Creatinine 1.40 0.70 - Above high Creatinine, [facility] [Mass/volume] in mg/dl 1.20 normal Serum Health Serum or Plasma mg/dl System Alkaline 98 38 - Normal (applies Alkaline [facility] phosphatase {IU/L} 126 to non-numeric Phosphatase, Health isoenzymes IU/L results) Serum System [Enzymatic activity/volume] in Serum or Plasma by Heat stability Bilirubin.total 0.2 0.2 - Normal (applies Bilirubin, [facility] [Mass/volume] in mg/dl 1.3 to non-numeric Serum Total Health Serum or Plasma mg/dl results) System Direct Bilirubin 0.1 0.0 - Normal (applies Direct [facility] mg/dl 0.4 to non-numeric Bilirubin Health mg/dl results) System Aspartate 14 5 - 40 Normal (applies Aspartate [facility] aminotransferase {IU/L} IU/L to non-numeric Transaminase, Heal th [Enzymatic results) Serum System activity/volume] in Serum or Plasma by With P-5'-P Albumin 3.3 3.9 - Below low normal Albumin, [facility] [Mass/volume] in {gm/dl} 5.0 Serum Health Serum or Plasma gm/dl System I. Phosphorus 2.4 2.5 - Below low normal I. Phosphorus Ubaldo grace mg/dl 4.5 Health mg/dl System Alanine 18 7 - 56 Normal (applies Alanine [facility] aminotransferase {IU/L} IU/L to non-numeric Aminotransfer Heal th [Enzymatic results) ase, Serum System activity/volume] in Serum or Plasma Calcium 8.2 8.4 - Below low normal Calcium, [facility] [Mass/volume] in mg/dl 10.2 Total Serum Health Serum or Plasma mg/dl System A/G Ratio 0.80 Normal (applies A/G Ratio [facility] to non-numeric Health results) System Urate 5.5 2.5 - Normal (applies Uric Acid, [facility] [Mass/volume] in mg/dl 7.5 to non-numeric Serum Health Serum or Plasma mg/dl results) System Anion gap in Serum 13.00 8.00 - Above high Anion Gap [facility] or Plasma mmol/L 12.00 normal Health mmol/L System Glomerular 38.08 Normal (applies GFR [facility] filtration to non-numeric Health rate/1.73 sq results) System M.predicted [Volume Rate/Area] in Serum or Plasma by Creatinine-based formula (CKD-EPI) eGFR will provide clinicians with a more accurate indicator of renal function then the serum creatinine. The eGFR is automa tically calculated from an empiric formula (endorsed by the National Kid[employer] ion) which incorporates age, sex, and race.Clinicians may notice surprisingly low GFR's with serum creatinine valueswithin normal range- particularly in elderly wo men (with low muscle mass).In the hospital setting, the eGFR should add an element of safety in drug dosing, in assessing the risk of IV contrast administration, and in assessing vascular risk.The NKF staging system is as follows:Normal: eGFR >90 with no kidney markersStage 1: eGFR >90 with kidney markers*Stage 2: eGFR 60- 89Stage 3: eGFR 30-59Stage 4: eGFR 15-29Stage 5: eGFR <15 (usually requir ing dialysis)*Markers include: Proteinuria, Hematuria, abnormal imaging-studies, or other blood or urine test abnormalities ID Date Data Source [id number] 11/19/2016 06:00:00 AM EDT [facility] System Name Value Range Interpretation Description Data Sup porting Code Source(s) Document(s ) Magnesium 0.9 1.7 - Below lower panic Magnesium, [facility] [Mass/volume {mEq/L} 2.2 limits Serum Health System ] in Serum mEq/L or Plasma Result Reporting|Telephone|elle| 017 at 6:06 PMCalled to:Jessica Name:Rajinder by:elle 11/19/2016 / 6:05 PM ID Date Data Source [id number] 11/18/2016 10:09:00 PM EDT [facility] System Name Value Range Interpretation Description Data Source(s ) Supporting Code Document(s ) Lipase 3 U/L 8 - 78 Below low normal Lipase, Serum [facility] [Enzymatic U/L Health System activity/v olume] in Serum or Plasma ID Date Data Source [id number] 11/18/2016 07:30:00 PM EDT [facility] System Name Value Range Interpretation Description Data Sup porting Code Source(s) Document(s ) aPTT in Blood 27.1 20.0 - Normal (applies Activated [facility] by {Second 30.3 to non-numeric Partial Health Coagulation s} Seconds results) Thromboplastin System assay Time ID Date Data Source [id number] 11/18/2016 07:30:00 PM EDT [facility] System Name Value Range Interpretation Description Data Sup porting Code Source(s) Document(s ) Prothrombin 11.20 9.40 - Normal (applies Prothrombin [facility] time (PT) {seconds 11.30 to non-numeric time (PT) Health } seconds results) System INR in Blood 1.08 0.70 - Normal (applies INR Result [facility] by Coagulation {Ratio} 1.10 to non-numeric Health assay Ratio results) System Normal = 0.7-1.1Therapeutic = 2.0-3.0Mec hanical Heart = 3.0-4.5 ID Date Data Source [id number] 11/18/2016 07:30:00 PM EDT [facility] Name Value Range Interpretation Description Data Sup porting Code Source(s) Document(s ) Leukocytes 20.9 4.8 - Above high WBC Count [facility] [#/volume] in {10^3_u 10.8 normal Health Unspecified L} 10^3 uL System specimen by Automated count Erythrocytes 3.29 3.80 - Below low normal RBC Count [facility] [#/volume] in {10^6_u 5.20 Health Blood by L} 10^6 uL System Automated count Hemoglobin 9.7 12.0 - Below low normal Hemoglobin [facility] [Mass/volume] in {gm/dL} 16.0 Health Blood gm/dL System Hematocrit 28.8 % 36.0 - Below low normal Hematocrit [facility] [Volume 46.0 % Health Fraction] of System Blood Erythrocyte mean 87.5 fl 83.0 - Normal (applies MCV [facility] corpuscular 98.0 fl to non-numeric Health volume [Entitic results) System volume] by Automated count Erythrocyte mean 29.5 pg 26.0 - Normal (applies MCH [facility] corpuscular 34.0 pg to non-numeric Health hemoglobin results) System [Entitic mass] by Automated count Erythrocyte mean 33.7 33.0 - Normal (applies MCHC [facility] corpuscular {gm/dL} 37.0 to non-numeric Health hemoglobin gm/dL results) System concentration [Mass/volume] by Automated count Erythrocyte 13.1 % 11.5 - Normal (applies RDW-CV [facility] distribution 14.5 % to non-numeric Health width [Entitic results) System volume] by Automated count Platelets 284 130 - Normal (applies Platelet Count [facility] [#/volume] in {10^3_u 400 to non-numeric Health Plasma by L} 10^3 uL results) System Automated count Platelet mean 10.4 fl 7.4 - Normal (applies MPV [facility] volume [Entitic 10.4 fl to non-numeric Health volume] in Blood results) System by Automated count Monocytes 0.9 0.3 - Normal (applies Monocyte # [facility] [#/volume] in {10^3_u 0.9 to non-numeric Health Blood by Manual L} 10^3 uL results) System count Eosinophils 0.01 0.05 - Below low normal Eosinophil # [facility] [#/volume] in {10^3_u 0.30 Health Blood L} 10^3 uL System Neutrophils 16.6 2.0 - Above high Neutrophil # [facility] [#/volume] in {10^3_u 8.1 normal Health Body fluid L} 10^3 uL System Basophils 0.03 0.00 - Normal (applies Basophil # [facility] [#/volume] in {10^3_u 0.10 to non-numeric Health Blood by L} 10^3 uL results) System Automated count Lymphocyte # 3.3 1.0 - Normal (applies Lymphocyte # [facility] {10^3_u 5.5 to non-numeric Health L} 10^3 uL results) System Neutrophils/100 79.2 % 55.0 - Above high Neutrophil % [facility] leukocytes in 75.0 % normal Health Blood by System Automated count Monocytes/100 4.3 % 6.0 - Below low normal Monocyte % [facility] leukocytes in 9.0 % Health Blood System Eosinophils/100 0.0 % 0.0 - Normal (applies Eosinophil % Ubaldo grace leukocytes in 4.0 % to non-numeric Health Unspecified results) System specimen Basophils/100 0.1 % 0.0 - Normal (applies Basophil % [facility] leukocytes in 1.0 % to non-numeric Health Unspecified results) System specimen by Manual count Lymphocytes 15.8 % 21.0 - Below low normal Lymphocyte % [facility] [#/volume] in 51.0 % Health Blood by System Automated count Immature 0.6 % 0.0 - Normal (applies Immature [facility] Granulocytes % 0.8 % to non-numeric Granulocytes % Healt h results) System Nucleated 0.0 0.0 - Normal (applies NRBC % [facility] erythrocytes {/100_W 0.0 to non-numeric Health [#/volume] in BC} /100 results) System Body fluid WBC Immature 0.12 0.00 - Above high Immature [facility] Granulocytes # {10^3_u 0.09 normal Granulocytes # Health L} 10^3 uL System NRBC # 0.00 0.90 - Below low normal NRBC # [facility] {10^3_u 11.20 Health L} 10^3 uL System ID Date Data Source [id number] 11/18/2016 07:30:00 PM EDT [facility] Name Value Range Interpretation Description Data Sup porting Code Source(s) Document(s ) Sodium 136 137 - Below low normal Sodium, Serum [facility] [Moles/volum mmol/L 145 Health System e] in Serum mmol/L or Plasma Potassium 4.2 3.6 - Normal (applies Potassium, [facility] [Mass/volume mmol/L 5.0 to non-numeric Serum Health Syste m ] in Serum mmol/L results) or Plasma specimen moderately hemolysed. notified hasmukh talavera. Chloride 103 mmol/L 98 - 107 Normal (applies Chloride, [facility] [Moles/volume] in mmol/L to non-numeric Serum Health System Serum or Plasma results) Carbon dioxide, total 19.0 22.0 - Below low CO2, Serum [facility] [Moles/volume] in mmol/L 30.0 normal [facility] Sy[facility] m Serum or Plasma mmol/L Total Protein 9.1 mg/dl 6.3 - 8.2 Above high Total Protein [facility] mg/dl normal [facility] Glucose [Mass/volume] 249 mg/dL 65 - 105 Above high Glucose, [facility] in Serum or Plasma mg/dL normal Serum [facility] Urea nitrogen 23 mg/dl 7 - 18 Above high Blood Urea [facility] [Mass/volume] in mg/dl normal Nitrogen, Health System Serum or Plasma Serum Creatinine 2.10 mg/dl 0.70 - Above high Creatinine, [facility] [Mass/volume] in 1.20 mg/dl normal Serum [facility] Serum or Plasma Alkaline phosphatase 115 {IU/L} 38 - 126 Normal (applies Alkaline [facility] isoenzymes [Enzymatic IU/L to non-numeric Phosphatase, Health System activity/volume] in results) Serum Serum or Plasma by Heat stability Bilirubin.total 0.5 mg/dl 0.2 - 1.3 Normal (applies Bilirubin, [facility] [Mass/volume] in mg/dl to non-numeric Serum Total [facility] Serum or Plasma results) Direct Bilirubin 0.2 mg/dl 0.0 - 0.4 Normal (applies Direct [facility] mg/dl to non-numeric Bilirubin [facility] results) Aspartate 29 {IU/L} 5 - 40 Normal (applies Aspartate [facility] aminotransferase IU/L to non-numeric Transaminase, [facility] [Enzymatic results) Serum activity/volume] in Serum or Plasma by With P-5'-P Albumin [Mass/volume] 3.8 3.9 - 5.0 Below low Albumin, [facility] in Serum or Plasma {gm/dl} gm/dl normal Serum [facility] specimen hemolysed. notify rn DEverett [place] Phosphorus 2.9 mg/dl 2.5 - 4.5 Normal (applies I. Phosphorus [facility] mg/dl to non-numeric [facility] results) Alanine 24 {IU/L} 7 - 56 Normal (applies Alanine [facility] aminotransferase IU/L to non-numeric Aminotransfera [facility]a [facility] [Enzymatic results) se, Serum activity/volume] in Serum or Plasma Calcium [Mass/volume] 8.8 mg/dl 8.4 - Normal (applies Calcium, Tot al [facility] in Serum or Plasma 10.2 to non-numeric Serum [facility] mg/dl results) A/G Ratio 0.72 Normal (applies A/G Ratio [facility] to non-numeric [facility] results) Urate [Mass/volume] 7.5 mg/dl 2.5 - 7.5 Normal (applies Uric Acid, [facility] in Serum or Plasma mg/dl to non-numeric Serum [facility] results) Anion gap in Serum or 14.00 8.00 - Above high Anion Gap [facility] Plasma mmol/L 12.00 normal Health System mmol/L Glomerular filtration 23.85 Normal (applies GFR [facility] rate/1.73 sq to non-numeric [facility] Syste m M.predicted [Volume results) Rate/Area] in Serum or Plasma by Creatinine-based formula (CKD-EPI) eGFR will provide clinicians with a more accurate indicator of renal function then the serum creatinine. The eGFR is automa tically calculated from an empiric formula (endorsed by the [employer] ion) which incorporates age, sex, and race.Clinicians may notice surprisingly low GFR's with serum creatinine valueswithin normal range- particularly in elderly wo men (with low muscle mass).In the hospital setting, the eGFR should add an element of safety in drug dosing, in assessing the risk of IV contrast administration, and in assessing vascular risk.The NKF staging system is as follows:Normal: eGFR >90 with no kidney markersStage 1: eGFR >90 with kidney markers*Stage 2: eGFR 60- 89Stage 3: eGFR 30-59Stage 4: eGFR 15-29Stage 5: eGFR <15 (usually requir ing dialysis)*Markers include: Proteinuria, Hematuria, abnormal imaging-studies, or other blood or urine test abnormalities ID Date Data Source [id number] 11/18/2016 07:30:00 PM EDT [facility] Name Value Range Interpretation Description Data Sup porting Code Source(s) Document(s ) Troponin I 0.00 0.00 - Normal (applies Troponin I [facility] Quantitative - ng/mL 0.04 to non-numeric Quantitative - Healt h [facility] Only ng/mL results) MV Only System ID Date Data Source [id number] 11/18/2016 07:30:00 PM EDT [facility] Name Value Range Interpretation Description Data Sup porting Code Source(s) Document(s ) Amphetamine Negative Negative Normal (applies Amphetamine [facility] [Mass/volume] ng/ml to non-numeric Level, Urine Health in Urine results) System Cut-off = 1000 ng/mL Barbiturates Negative Negative Normal (applies Barbiturate [facility] [Mass/volume] in ng/ml to non-numeric Screen, Urine [facility] Urine by Screen results) method Cut-off = 200 ng/mL Benzodiazepines Negative Negative Normal Benzodiazepines, [facility] [Mass/volume] in ng/mL (applies to Urine Health Urine non-numeric System results) Cut-off = 200 ng/mL Cocaine Negative Negative Normal (applies Cocaine [facility] metabolites.other ng/ml to non-numeric Metabolite [facility] [Mass/volume] in results) Screen, Urine Urine Cut-off = 300 ng/mL Methadone Negative Negative Normal (applies Methadone [facility] [Mass/volume] in to non-numeric Level, Urine Healt [facility] System Urine results) Cut-off = 300 ng/mL Opiate 300, Positive Negative ng/ml Abnormal (applies Opiate 300, [facility] Urine to non-numeric Urine [facility] results) Cut-off = 300 ng/mL Phencyclidine Negative Negative Normal (applies Phencyclidine, [facility] [Mass/volume] in ng/ml to non-numeric Urine [facility] S ystem Urine results) Cut-off = 25 ng/mL Cannabinoid Negative Negative Normal (applies Cannabinoid [facility] (THC) ng/mL to non-numeric (THC) Health System results) Cutt-off = 50These results are for medic al treatment only. The positive findings are unconfirmed. Request confirmatory/quanti tative test if needed. ID Date Data Source [id number] 11/08/2016 06:29:00 PM EDT [facility] Name Value Range Interpretation Description Data Sup porting Code Source(s) Document(s ) Sodium 136 137 - Below low normal Sodium, Serum [facility] [Moles/volume] in mmol/L 145 Health Serum or Plasma mmol/L System Potassium 4.1 3.6 - Normal (applies Potassium, [facility] [Mass/volume] in mmol/L 5.0 to non-numeric Serum Health Serum or Plasma mmol/L results) System Chloride 107 98 - Normal (applies Chloride, [facility] [Moles/volume] in mmol/L 107 to non-numeric Serum Health Serum or Plasma mmol/L results) System Carbon dioxide, 21.0 22.0 - Below low normal CO2, Serum [facility] total mmol/L 30.0 Health [Moles/volume] in mmol/L System Serum or Plasma Total Protein 7.4 6.3 - Normal (applies Total Protein [facility] mg/dl 8.2 to non-numeric Health mg/dl results) System Glucose 218 65 - Above high Glucose, [facility] [Mass/volume] in mg/dL 105 normal Serum Health Serum or Plasma mg/dL System Urea nitrogen 36 7 - 18 Above high Blood Urea [facility] [Mass/volume] in mg/dl mg/dl normal Nitrogen, Health Serum or Plasma Serum System Creatinine 1.60 0.70 - Above high Creatinine, [facility] [Mass/volume] in mg/dl 1.20 normal Serum Health Serum or Plasma mg/dl System Alkaline 107 38 - Normal (applies Alkaline [facility] phosphatase {IU/L} 126 to non-numeric Phosphatase, Health isoenzymes IU/L results) Serum System [Enzymatic activity/volume] in Serum or Plasma by Heat stability Bilirubin.total 0.3 0.2 - Normal (applies Bilirubin, [facility] [Mass/volume] in mg/dl 1.3 to non-numeric Serum Total Health Serum or Plasma mg/dl results) System Direct Bilirubin 0.2 0.0 - Normal (applies Direct [facility] mg/dl 0.4 to non-numeric Bilirubin [facility] mg/dl results) System Aspartate 25 5 - 40 Normal (applies Aspartate [facility] aminotransferase {IU/L} IU/L to non-numeric Transaminase, Heal th [Enzymatic results) Serum System activity/volume] in Serum or Plasma by With P-5'-P Albumin 3.6 3.9 - Below low normal Albumin, [facility] [Mass/volume] in {gm/dl} 5.0 Serum Health Serum or Plasma gm/dl System I. Phosphorus 3.7 2.5 - Normal (applies I. Phosphorus [facility] mg/dl 4.5 to non-numeric [facility] mg/dl results) System Alanine 41 7 - 56 Normal (applies Alanine [facility] aminotransferase {IU/L} IU/L to non-numeric Aminotransfer Heal th [Enzymatic results) ase, Serum System activity/volume] in Serum or Plasma Calcium 8.2 8.4 - Below low normal Calcium, [facility] [Mass/volume] in mg/dl 10.2 Total Serum Health Serum or Plasma mg/dl System A/G Ratio 0.95 Normal (applies A/G Ratio [facility] to non-numeric Health results) System Urate 8.4 2.5 - Above high Uric Acid, [facility] [Mass/volume] in mg/dl 7.5 normal Serum Health Serum or Plasma mg/dl System Anion gap in Serum 8.00 8.00 - Normal (applies Anion Gap [facility] or Plasma mmol/L 12.00 to non-numeric Health mmol/L results) System Glomerular 32.65 Normal (applies GFR [facility] filtration to non-numeric Health rate/1.73 sq results) System M.predicted [Volume Rate/Area] in Serum or Plasma by Creatinine-based formula (CKD-EPI) eGFR will provide clinicians with a more accurate indicator of renal function then the serum creatinine. The eGFR is automa tically calculated from an empiric formula (endorsed by the [employer] ion) which incorporates age, sex, and race.Clinicians may notice surprisingly low GFR's with serum creatinine valueswithin normal range- particularly in elderly wo men (with low muscle mass).In the hospital setting, the eGFR should add an element of safety in drug dosing, in assessing the risk of IV contrast administration, and in assessing vascular risk.The NKF staging system is as follows:Normal: eGFR >90 with no kidney markersStage 1: eGFR >90 with kidney markers*Stage 2: eGFR 60- 89Stage 3: eGFR 30-59Stage 4: eGFR 15-29Stage 5: eGFR <15 (usually requir ing dialysis)*Markers include: Proteinuria, Hematuria, abnormal imaging-studies, or other blood or urine test abnormalities ID Date Data Source [id number] 11/08/2016 01:10:00 PM EDT [facility] System Name Value Range Interpretation Description Data Sup porting Code Source(s) Document(s ) Color YELLOW Yellow Normal (applies Color [facility] to non-numeric Health results) System Appearance of CLEAR Clear Normal (applies Urine [facility] Urine to non-numeric Appearance Health results) System Specific > 1.030 Normal (applies Urine Specific [facility] gravity of to non-numeric [facility] Urine results) System pH.. 5.5 4.6 - 8.0 Normal (applies pH.. [facility] {pH_units} pH units to non-numeric Health results) System Glucose, UA NEGATIVE < 50 Normal (applies Glucose, UA [facility] mg/dl to non-numeric Health results) System Protein 100 mg/dl < 30 Normal (applies Protein [facility] [Mass/volume] mg/dl to non-numeric Health in Serum or results) System Plasma Bilirubin NEGATIVE Negative Normal (applies Bilirubin [facility] Urine Sm to Lg to non-numeric Urine Health results) System Urobilinogen 0.2 mg/dL 0.2 - 1.0 Normal (applies Urobilinogen [facility] [Mass/volume] mg/dL to non-numeric UA [facility] in Urine results) System Ketones NEGATIVE Negative Normal (applies Ketones UA [facility] [Mass/volume] mg/dL to non-numeric Health in Urine results) System Nitrate+Nitrit NEGATIVE Negative Normal (applies Nitrite [facility] Neg/Pos to non-numeric Health [Mass/volume] results) System in Unspecified specimen Leukocyte NEGATIVE Negative Normal (applies Leukocyte [facility] esterase Tr to Lg to non-numeric Esterase Health [Units/volume] results) Concentration System in Urine Leukocytes 4 {/HPF} 0 - 2 Normal (applies White Blood [facility] [#/volume] in /HPF to non-numeric Cells Health Unspecified results) System specimen by Automated count Red Blood 3 {/HPF} 0 - 1 Normal (applies Red Blood [facility] Cells /HPF to non-numeric Cells Health results) System Epithelial 20 {/HPF} 0 - 3 Normal (applies Epithelial [facility] cells /HPF to non-numeric Cells Health [Presence] in results) System Unspecified specimen by Wet preparation Bacteria 3+ 0 - 1+ Abnormal Bacteria [facility] [Presence] in /HPF (applies to Health Unspecified non-numeric System specimen results) Urine Blood NEGATIVE Negative Normal (applies Urine Blood [facility] Sm to Lg to non-numeric Health results) System ID Date Data Source [id number] 11/08/2016 01:10:00 PM EDT [facility] Name Value Range Interpretation Description Data Sup porting Code Source(s) Document(s ) aPTT in Blood 23.1 20.0 - Normal (applies Activated [facility] by {Second 30.3 to non-numeric Partial Health Coagulation s} Seconds results) Thromboplastin System assay Time ID Date Data Source [id number] 11/08/2016 01:10:00 PM EDT [facility] Name Value Range Interpretation Description Data Sup porting Code Source(s) Document(s ) Prothrombin 10.40 9.40 - Normal (applies Prothrombin [facility] time (PT) {seconds 11.30 to non-numeric time (PT) Health } seconds results) System INR in Blood 1.01 0.70 - Normal (applies INR Result [facility] by Coagulation {Ratio} 1.10 to non-numeric Health assay Ratio results) System Normal = 0.7-1.1Therapeutic = 2.0-3.0Mec hanical Heart = 3.0-4.5 ID Date Data Source [id number] 11/08/2016 01:10:00 PM EDT [facility] Name Value Range Interpretation Description Data Sup porting Code Source(s) Document(s ) Leukocytes 8.8 4.8 - Normal (applies WBC Count [facility] [#/volume] in {10^3_u 10.8 to non-numeric Health Unspecified L} 10^3 uL results) System specimen by Automated count Erythrocytes 3.54 3.80 - Below low normal RBC Count [facility] [#/volume] in {10^6_u 5.20 Health Blood by L} 10^6 uL System Automated count Hemoglobin 10.6 12.0 - Below low normal Hemoglobin [facility] [Mass/volume] in {gm/dL} 16.0 Health Blood gm/dL System Hematocrit 32.2 % 36.0 - Below low normal Hematocrit [facility] [Volume 46.0 % Health Fraction] of System Blood Erythrocyte mean 91.0 fl 83.0 - Normal (applies MCV [facility] corpuscular 98.0 fl to non-numeric Health volume [Entitic results) System volume] by Automated count Erythrocyte mean 29.9 pg 26.0 - Normal (applies MCH [facility] corpuscular 34.0 pg to non-numeric Health hemoglobin results) System [Entitic mass] by Automated count Erythrocyte mean 32.9 33.0 - Below low normal MCHC [facility] corpuscular {gm/dL} 37.0 Health hemoglobin gm/dL System concentration [Mass/volume] by Automated count Erythrocyte 12.8 % 11.5 - Normal (applies RDW-CV [facility] distribution 14.5 % to non-numeric Health width [Entitic results) System volume] by Automated count Platelets 260 130 - Normal (applies Platelet Count [facility] [#/volume] in {10^3_u 400 to non-numeric Health Plasma by L} 10^3 uL results) System Automated count Platelet mean 10.7 fl 7.4 - Above high MPV [facility] volume [Entitic 10.4 fl normal Health volume] in Blood System by Automated count Monocytes 0.5 0.3 - Normal (applies Monocyte # [facility] [#/volume] in {10^3_u 0.9 to non-numeric Health Blood by Manual L} 10^3 uL results) System count Eosinophils 0.05 0.05 - Normal (applies Eosinophil # [facility] [#/volume] in {10^3_u 0.30 to non-numeric Health Blood L} 10^3 uL results) System Neutrophils 5.9 2.0 - Normal (applies Neutrophil # [facility] [#/volume] in {10^3_u 8.1 to non-numeric Health Body fluid L} 10^3 uL results) System Basophils 0.03 0.00 - Normal (applies Basophil # [facility] [#/volume] in {10^3_u 0.10 to non-numeric Health Blood by L} 10^3 uL results) System Automated count Lymphocyte # 2.3 1.0 - Normal (applies Lymphocyte # [facility] {10^3_u 5.5 to non-numeric Health L} 10^3 uL results) System Neutrophils/100 67.3 % 55.0 - Normal (applies Neutrophil % [facility] leukocytes in 75.0 % to non-numeric Health Blood by results) System Automated count Monocytes/100 5.3 % 6.0 - Below low normal Monocyte % [facility] leukocytes in 9.0 % Health Blood System Eosinophils/100 0.6 % 0.0 - Normal (applies Eosinophil % [facility] leukocytes in 4.0 % to non-numeric Health Unspecified results) System specimen Basophils/100 0.3 % 0.0 - Normal (applies Basophil % [facility] leukocytes in 1.0 % to non-numeric Health Unspecified results) System specimen by Manual count Lymphocytes 26.2 % 21.0 - Normal (applies Lymphocyte % [facility] [#/volume] in 51.0 % to non-numeric Health Blood by results) System Automated count Immature 0.3 % 0.0 - Normal (applies Immature [facility] Granulocytes % 0.8 % to non-numeric Granulocytes % Healt h results) System Nucleated 0.0 0.0 - Normal (applies NRBC % [facility] erythrocytes {/100_W 0.0 to non-numeric Health [#/volume] in BC} /100 results) System Body fluid WBC Immature 0.03 0.00 - Normal (applies Immature [facility] Granulocytes # {10^3_u 0.09 to non-numeric Granulocytes # Healt h L} 10^3 uL results) System NRBC # 0.00 0.90 - Below low normal NRBC # [facility] {10^3_u 11.20 Health L} 10^3 uL System ID Date Data Source [id number] 11/08/2016 01:10:00 PM EDT [facility] Name Value Range Interpretation Description Data Sup porting Code Source(s) Document(s ) Sodium 138 137 - Normal (applies Sodium, Serum [facility] [Moles/volume] in mmol/L 145 to non-numeric Health Serum or Plasma mmol/L results) System Potassium 5.3 3.6 - Above high Potassium, [facility] [Mass/volume] in mmol/L 5.0 normal Serum Health Serum or Plasma mmol/L System Chloride 104 98 - Normal (applies Chloride, [facility] [Moles/volume] in mmol/L 107 to non-numeric Serum Health Serum or Plasma mmol/L results) System Carbon dioxide, 21.0 22.0 - Below low normal CO2, Serum [facility] total mmol/L 30.0 Health [Moles/volume] in mmol/L System Serum or Plasma Total Protein 9.7 6.3 - Above high Total Protein [facility] mg/dl 8.2 normal Health mg/dl System Glucose 161 65 - Above high Glucose, [facility] [Mass/volume] in mg/dL 105 normal Serum Health Serum or Plasma mg/dL System Urea nitrogen 41 7 - 18 Above high Blood Urea [facility] [Mass/volume] in mg/dl mg/dl normal Nitrogen, Health Serum or Plasma Serum System Creatinine 2.00 0.70 - Above high Creatinine, [facility] [Mass/volume] in mg/dl 1.20 normal Serum Health Serum or Plasma mg/dl System Alkaline 138 38 - Above high Alkaline [facility] phosphatase {IU/L} 126 normal Phosphatase, Health isoenzymes IU/L Serum System [Enzymatic activity/volume] in Serum or Plasma by Heat stability Bilirubin.total 0.4 0.2 - Normal (applies Bilirubin, [facility] [Mass/volume] in mg/dl 1.3 to non-numeric Serum Total Health Serum or Plasma mg/dl results) System Direct Bilirubin 0.2 0.0 - Normal (applies Direct [facility] mg/dl 0.4 to non-numeric Bilirubin [facility] mg/dl results) System Aspartate 37 5 - 40 Normal (applies Aspartate [facility] aminotransferase {IU/L} IU/L to non-numeric Transaminase, Heal th [Enzymatic results) Serum System activity/volume] in Serum or Plasma by With P-5'-P Albumin 4.6 3.9 - Normal (applies Albumin, [facility] [Mass/volume] in {gm/dl} 5.0 to non-numeric Serum Health Serum or Plasma gm/dl results) System I. Phosphorus 4.8 2.5 - Above high I. Phosphorus [facility] mg/dl 4.5 normal Health mg/dl System Alanine 58 7 - 56 Above high Alanine [facility] aminotransferase {IU/L} IU/L normal Aminotransfer Health [Enzymatic ase, Serum System activity/volume] in Serum or Plasma Calcium 9.8 8.4 - Normal (applies Calcium, [facility] [Mass/volume] in mg/dl 10.2 to non-numeric Total Serum Health Serum or Plasma mg/dl results) System A/G Ratio 0.90 Normal (applies A/G Ratio [facility] to non-numeric Health results) System Urate 9.4 2.5 - Above high Uric Acid, [facility] [Mass/volume] in mg/dl 7.5 normal Serum Health Serum or Plasma mg/dl System Anion gap in Serum 13.00 8.00 - Above high Anion Gap [facility] or Plasma mmol/L 12.00 normal Health mmol/L System Glomerular 25.23 Normal (applies GFR [facility] filtration to non-numeric Health rate/1.73 sq results) System M.predicted [Volume Rate/Area] in Serum or Plasma by Creatinine-based formula (CKD-EPI) eGFR will provide clinicians with a more accurate indicator of renal function then the serum creatinine. The eGFR is automa tically calculated from an empiric formula (endorsed by the [employer] Kid[employer] ion) which incorporates age, sex, and race.Clinicians may notice surprisingly low GFR's with serum creatinine valueswithin normal range- particularly in elderly wo men (with low muscle mass).In the hospital setting, the eGFR should add an element of safety in drug dosing, in assessing the risk of IV contrast administration, and in assessing vascular risk.The NKF staging system is as follows:Normal: eGFR >90 with no kidney markersStage 1: eGFR >90 with kidney markers*Stage 2: eGFR 60- 89Stage 3: eGFR 30-59Stage 4: eGFR 15-29Stage 5: eGFR <15 (usually requir ing dialysis)*Markers include: Proteinuria, Hematuria, abnormal imaging-studies, or other blood or urine test abnormalities ID Date Data Source [id number] 11/08/2016 01:10:00 PM EDT [facility] System Name Value Range Interpretation Description Data Sup porting Code Source(s) Document(s ) Alcohol 0.2 mg/dl Normal (applies to Alcohol Ethyl, [facility] Ethyl, non-numeric Blood [facility] System Blood results) None Detected ID Date Data Source [id number] 11/08/2016 01:10:00 PM EDT [facility] Name Value Range Interpretation Description Data Sup porting Code Source(s) Document(s ) Troponin I 0.00 0.00 - Normal (applies Troponin I [facility] Quantitative - ng/mL 0.04 to non-numeric Quantitative - Healt h [facility] Only ng/mL results) [facility] Only System ID Date Data Source [id number] 11/08/2016 01:10:00 PM EDT [facility] Name Value Range Interpretation Description Data Source(s ) Supporting Code Document(s ) Lipase 2 U/L 8 - 78 Below low normal Lipase, Serum [facility] [Enzymatic U/L Health System activity/v olume] in Serum or Plasma ID Date Data Source [id number] 09/22/2016 06:00:00 AM EDT [facility] Name Value Range Interpretation Description Data Sup porting Code Source(s) Document(s ) Sodium 131 137 - Below low normal Sodium, Serum [facility] [Moles/volume] in mmol/L 145 Health Serum or Plasma mmol/L System Potassium 4.7 3.6 - Normal (applies Potassium, [facility] [Mass/volume] in mmol/L 5.0 to non-numeric Serum Health Serum or Plasma mmol/L results) System Chloride 97 98 - Below low normal Chloride, [facility] [Moles/volume] in mmol/L 107 Serum Health Serum or Plasma mmol/L System Carbon dioxide, 25.0 22.0 - Normal (applies CO2, Serum [facility] total mmol/L 30.0 to non-numeric Health [Moles/volume] in mmol/L results) System Serum or Plasma Total Protein 7.7 6.3 - Normal (applies Total Protein [facility] mg/dl 8.2 to non-numeric Health mg/dl results) System Glucose 204 65 - Above high Glucose, [facility] [Mass/volume] in mg/dL 105 normal Serum Health Serum or Plasma mg/dL System Urea nitrogen 16 7 - 18 Normal (applies Blood Urea [facility] [Mass/volume] in mg/dl mg/dl to non-numeric Nitrogen, Health Serum or Plasma results) Serum System Creatinine 1.30 0.70 - Above high Creatinine, [facility] [Mass/volume] in mg/dl 1.20 normal Serum Health Serum or Plasma mg/dl System Alkaline 122 38 - Normal (applies Alkaline [facility] phosphatase {IU/L} 126 to non-numeric Phosphatase, Health isoenzymes IU/L results) Serum System [Enzymatic activity/volume] in Serum or Plasma by Heat stability Bilirubin.total 0.5 0.2 - Normal (applies Bilirubin, [facility] [Mass/volume] in mg/dl 1.3 to non-numeric Serum Total Health Serum or Plasma mg/dl results) System Direct Bilirubin 0.2 0.0 - Normal (applies Direct [facility] mg/dl 0.4 to non-numeric Bilirubin Health mg/dl results) System Aspartate 48 5 - 40 Above high Aspartate [facility] aminotransferase {IU/L} IU/L normal Transaminase, Health [Enzymatic Serum System activity/volume] in Serum or Plasma by With P-5'-P Albumin 3.5 3.9 - Below low normal Albumin, [facility] [Mass/volume] in {gm/dl} 5.0 Serum Health Serum or Plasma gm/dl System I. Phosphorus 3.9 2.5 - Normal (applies I. Phosphorus [facility] mg/dl 4.5 to non-numeric Health mg/dl results) System Alanine 57 7 - 56 Above high Alanine [facility] aminotransferase {IU/L} IU/L normal Aminotransfer Health [Enzymatic ase, Serum System activity/volume] in Serum or Plasma Calcium 9.1 8.4 - Normal (applies Calcium, [facility] [Mass/volume] in mg/dl 10.2 to non-numeric Total Serum Health Serum or Plasma mg/dl results) System A/G Ratio 0.83 Normal (applies A/G Ratio [facility] to non-numeric Health results) System Urate 4.9 2.5 - Normal (applies Uric Acid, [facility] [Mass/volume] in mg/dl 7.5 to non-numeric Serum Health Serum or Plasma mg/dl results) System Anion gap in Serum 9.00 8.00 - Normal (applies Anion Gap [facility] or Plasma mmol/L 12.00 to non-numeric Health mmol/L results) System Glomerular 41.50 Normal (applies GFR [facility] filtration to non-numeric Health rate/1.73 sq results) System M.predicted [Volume Rate/Area] in Serum or Plasma by Creatinine-based formula (CKD-EPI) eGFR will provide clinicians with a more accurate indicator of renal function then the serum creatinine. The eGFR is automa tically calculated from an empiric formula (endorsed by the [employer] ion) which incorporates age, sex, and race.Clinicians may notice surprisingly low GFR's with serum creatinine valueswithin normal range- particularly in elderly wo men (with low muscle mass).In the hospital setting, the eGFR should add an element of safety in drug dosing, in assessing the risk of IV contrast administration, and in assessing vascular risk.The NKF staging system is as follows:Normal: eGFR >90 with no kidney markersStage 1: eGFR >90 with kidney markers*Stage 2: eGFR 60- 89Stage 3: eGFR 30-59Stage 4: eGFR 15-29Stage 5: eGFR <15 (usually requir ing dialysis)*Markers include: Proteinuria, Hematuria, abnormal imaging-studies, or other blood or urine test abnormalities ID Date Data Source [id number] 09/22/2016 06:00:00 AM EDSebastian Gonsales alth System Name Value Range Interpretation Description Data Sup porting Code Source(s) Document(s ) Magnesium 1.8 1.7 - Normal (applies Magnesium, [facility] [Mass/volume {mEq/L} 2.2 to non-numeric Serum Health Syste m ] in Serum mEq/L results) or Plasma ID Date Data Source [id number] 09/21/2016 06:00:00 AM KENNY Gonsales alth System Name Value Range Interpretation Description Data Sup porting Code Source(s) Document(s ) Leukocytes 7.0 4.8 - Normal (applies WBC Count [facility] [#/volume] in {10^3_u 10.8 to non-numeric Health Unspecified L} 10^3 uL results) System specimen by Automated count Erythrocytes 3.97 3.80 - Normal (applies RBC Count [facility] [#/volume] in {10^6_u 5.20 to non-numeric Health Blood by L} 10^6 uL results) System Automated count Hemoglobin 12.1 12.0 - Normal (applies Hemoglobin [facility] [Mass/volume] in {gm/dL} 16.0 to non-numeric Health Blood gm/dL results) System Hematocrit 35.3 % 36.0 - Below low normal Hematocrit [facility] [Volume 46.0 % Health Fraction] of System Blood Erythrocyte mean 88.9 fl 83.0 - Normal (applies MCV [facility] corpuscular 98.0 fl to non-numeric Health volume [Entitic results) System volume] by Automated count Erythrocyte mean 30.5 pg 26.0 - Normal (applies MCH [facility] corpuscular 34.0 pg to non-numeric Health hemoglobin results) System [Entitic mass] by Automated count Erythrocyte mean 34.3 33.0 - Normal (applies MCHC [facility] corpuscular {gm/dL} 37.0 to non-numeric Health hemoglobin gm/dL results) System concentration [Mass/volume] by Automated count Erythrocyte 11.9 % 11.5 - Normal (applies RDW-CV [facility] distribution 14.5 % to non-numeric Health width [Entitic results) System volume] by Automated count Platelets 238 130 - Normal (applies Platelet Count [facility] [#/volume] in {10^3_u 400 to non-numeric Health Plasma by L} 10^3 uL results) System Automated count Platelet mean 10.3 fl 7.4 - Normal (applies MPV [facility] volume [Entitic 10.4 fl to non-numeric Health volume] in Blood results) System by Automated count Monocytes 0.5 0.3 - Normal (applies Monocyte # [facility] [#/volume] in {10^3_u 0.9 to non-numeric Health Blood by Manual L} 10^3 uL results) System count Eosinophils 0.03 0.05 - Below low normal Eosinophil # [facility] [#/volume] in {10^3_u 0.30 Health Blood L} 10^3 uL System Neutrophils 5.3 2.0 - Normal (applies Neutrophil # [facility] [#/volume] in {10^3_u 8.1 to non-numeric Health Body fluid L} 10^3 uL results) System Basophils 0.01 0.00 - Normal (applies Basophil # [facility] [#/volume] in {10^3_u 0.10 to non-numeric Health Blood by L} 10^3 uL results) System Automated count Lymphocyte # 1.2 1.0 - Normal (applies Lymphocyte # [facility] {10^3_u 5.5 to non-numeric Health L} 10^3 uL results) System Neutrophils/100 75.0 % 55.0 - Normal (applies Neutrophil % [facility]bal[facility] grace leukocytes in 75.0 % to non-numeric Health Blood by results) System Automated count Monocytes/100 6.7 % 6.0 - Normal (applies Monocyte % [facility] leukocytes in 9.0 % to non-numeric Health Blood results) System Eosinophils/100 0.4 % 0.0 - Normal (applies Eosinophil % [facility] grace leukocytes in 4.0 % to non-numeric Health Unspecified results) System specimen Basophils/100 0.1 % 0.0 - Normal (applies Basophil % [facility] leukocytes in 1.0 % to non-numeric Health Unspecified results) System specimen by Manual count Lymphocytes 17.7 % 21.0 - Below low normal Lymphocyte % [facility] [#/volume] in 51.0 % Health Blood by System Automated count Immature 0.1 % 0.0 - Normal (applies Immature [facility] Granulocytes % 0.8 % to non-numeric Granulocytes % Healt h results) System Nucleated 0.0 0.0 - Normal (applies NRBC % [facility] erythrocytes {/100_W 0.0 to non-numeric Health [#/volume] in BC} /100 results) System Body fluid WBC Immature 0.01 0.00 - Normal (applies Immature [facility] Granulocytes # {10^3_u 0.09 to non-numeric Granulocytes # Healt h L} 10^3 uL results) System NRBC # 0.00 0.90 - Below low normal NRBC # [facility] {10^3_u 11.20 Health L} 10^3 uL System ID Date Data Source [id number] 09/21/2016 06:00:00 AM EDT [facility] System Name Value Range Interpretation Description Data Sup porting Code Source(s) Document(s ) Sodium 135 137 - Below low normal Sodium, Serum [facility] [Moles/volume] in mmol/L 145 Health Serum or Plasma mmol/L System Potassium 4.2 3.6 - Normal (applies Potassium, [facility] [Mass/volume] in mmol/L 5.0 to non-numeric Serum Health Serum or Plasma mmol/L results) System Chloride 102 98 - Normal (applies Chloride, [facility] [Moles/volume] in mmol/L 107 to non-numeric Serum Health Serum or Plasma mmol/L results) System Carbon dioxide, 23.0 22.0 - Normal (applies CO2, Serum [facility] total mmol/L 30.0 to non-numeric Health [Moles/volume] in mmol/L results) System Serum or Plasma Total Protein 7.9 6.3 - Normal (applies Total Protein [facility] mg/dl 8.2 to non-numeric Health mg/dl results) System Glucose 155 65 - Above high Glucose, [facility] [Mass/volume] in mg/dL 105 normal Serum Health Serum or Plasma mg/dL System Urea nitrogen 11 7 - 18 Normal (applies Blood Urea [facility] [Mass/volume] in mg/dl mg/dl to non-numeric Nitrogen, Health Serum or Plasma results) Serum System Creatinine 1.10 0.70 - Normal (applies Creatinine, [facility] [Mass/volume] in mg/dl 1.20 to non-numeric Serum Health Serum or Plasma mg/dl results) System Alkaline 123 38 - Normal (applies Alkaline [facility] phosphatase {IU/L} 126 to non-numeric Phosphatase, Health isoenzymes IU/L results) Serum System [Enzymatic activity/volume] in Serum or Plasma by Heat stability Bilirubin.total 0.4 0.2 - Normal (applies Bilirubin, [facility] [Mass/volume] in mg/dl 1.3 to non-numeric Serum Total Health Serum or Plasma mg/dl results) System Direct Bilirubin 0.2 0.0 - Normal (applies Direct [facility] mg/dl 0.4 to non-numeric Bilirubin Health mg/dl results) System Aspartate 52 5 - 40 Above high Aspartate [facility] aminotransferase {IU/L} IU/L normal Transaminase, Health [Enzymatic Serum System activity/volume] in Serum or Plasma by With P-5'-P Albumin 3.6 3.9 - Below low normal Albumin, [facility] [Mass/volume] in {gm/dl} 5.0 Serum Health Serum or Plasma gm/dl System I. Phosphorus 3.8 2.5 - Normal (applies I. Phosphorus [facility] mg/dl 4.5 to non-numeric Health mg/dl results) System Alanine 63 7 - 56 Above high Alanine [facility] aminotransferase {IU/L} IU/L normal Aminotransfer Health [Enzymatic ase, Serum System activity/volume] in Serum or Plasma Calcium 9.0 8.4 - Normal (applies Calcium, [facility] [Mass/volume] in mg/dl 10.2 to non-numeric Total Serum Health Serum or Plasma mg/dl results) System A/G Ratio 0.84 Normal (applies A/G Ratio [facility] to non-numeric Health results) System Urate 4.6 2.5 - Normal (applies Uric Acid, [facility] [Mass/volume] in mg/dl 7.5 to non-numeric Serum Health Serum or Plasma mg/dl results) System Anion gap in Serum 10.00 8.00 - Normal (applies Anion Gap Ubal[facility] grace or Plasma mmol/L 12.00 to non-numeric Health mmol/L results) System Glomerular 50.33 Normal (applies GFR [facility] filtration to non-numeric Health rate/1.73 sq results) System M.predicted [Volume Rate/Area] in Serum or Plasma by Creatinine-based formula (CKD-EPI) eGFR will provide clinicians with a more accurate indicator of renal function then the serum creatinine. The eGFR is automa tically calculated from an empiric formula (endorsed by the [employer] ion) which incorporates age, sex, and race.Clinicians may notice surprisingly low GFR's with serum creatinine valueswithin normal range- particularly in elderly wo men (with low muscle mass).In the hospital setting, the eGFR should add an element of safety in drug dosing, in assessing the risk of IV contrast administration, and in assessing vascular risk.The NKF staging system is as follows:Normal: eGFR >90 with no kidney markersStage 1: eGFR >90 with kidney markers*Stage 2: eGFR 60- 89Stage 3: eGFR 30-59Stage 4: eGFR 15-29Stage 5: eGFR <15 (usually requir ing dialysis)*Markers include: Proteinuria, Hematuria, abnormal imaging-studies, or other blood or urine test abnormalities ID Date Data Source [id number] 09/21/2016 06:00:00 AM EDT [facility] Gonsales [facility] System Name Value Range Interpretation Description Data Sup porting Code Source(s) Document(s ) Magnesium 1.4 1.7 - Below low normal Magnesium, [facility] [Mass/volume {mEq/L} 2.2 Serum Health System ] in Serum mEq/L or Plasma ID Date Data Source [id number] 09/19/2016 06:00:00 AM EDT [facility] System Name Value Range Interpretation Description Data Sup porting Code Source(s) Document(s ) Hepatitis SEE TEXT Not Normal (applies Hepatitis C [facility] C Viral DetectedReference to non-numeric Viral RNA Health RNA Range: Not results) Genotype System Genotype DetectedWe were LiPA LiPA unable to obtain a genotype from this sample. Themost common reasons for failure to genotype are insufficientviral load, mutations in the viral genome at the assaypriming sites, and presence of inhibitory substance in thesample. Please correlate this result with any recent viralload for this patient and resubmit if clinically warranted.A minimum viral load of 300 IU/mL is required for testing.The method used in this test is RT-PCR and reversehybridizatio n (Line Probe) of the 5' UTR and core region ofthe HCV genome.This test was developed and its analytical performance characteristics have been determined by [facility].It has not been cleared or approved by FDA. This assay hasbeen validated pursuant to the CLIA regulations and is used for clinical purposes.Test Performed at:[facility], [place], [place] [address]WgbbkhwlMichelle Cuba M.D. ID Date Data Source [id number] 09/19/2016 06:00:00 AM EDT [facility] System Name Value Range Interpretation Description Data Sup porting Code Source(s) Document(s ) Hepatitis C <15 Not Normal (applies Hepatitis C [facility] Viral RNA Detected to non-numeric Viral RNA Health results) System Hepatitis C <1.18 Not Normal (applies Hepatitis C [facility] Viral RNA DetectedThe to non-numeric Viral RNA Health Quantitative analytical results) Quantitative System performance characteristics of thisassay have been determined by [facility].The modifications have not been cleared or approved bythe FDA. This assay has been validated pursuant to theCLIA regulations and is used for clinical purposes.This test was performed using the CLAIR(R)AmpliPr ep/CLAIR(R)TaqM an(R)HCV Test, v2.0.For more information on this test, go to:http://educa tion.[employer]GPS.SugarSync/faq/ XKB14k7(This link is being provided for informational/e ducational purposes only.)Test Performed at:[facility], [place], [place] [address]BxdonwhbAlvaro Cuba M.D. ID Date Data Source [id number] 09/19/2016 06:00:00 AM EDT [facility] System Name Value Range Interpretation Description Data Sup porting Code Source(s) Document(s ) aPTT in Blood 28.5 20.0 - Normal (applies Activated [facility] by {Second 30.3 to non-numeric Partial Health Coagulation s} Seconds results) Thromboplastin System assay Time ID Date Data Source [id number] 09/19/2016 06:00:00 AM EDT [facility] System Name Value Range Interpretation Description Data Sup porting Code Source(s) Document(s ) Prothrombin 11.30 9.40 - Normal (applies Prothrombin [facility] time (PT) {seconds 11.30 to non-numeric time (PT) Health } seconds results) System INR in Blood 1.09 0.70 - Normal (applies INR Result [facility] by Coagulation {Ratio} 1.10 to non-numeric Health assay Ratio results) System Normal = 0.7-1.1Therapeutic = 2.0-3.0Mec hanical Heart = 3.0-4.5 ID Date Data Source [id number] 09/19/2016 06:00:00 AM EDT [facility] G[facility] System Name Value Range Interpretation Description Data Sup porting Code Source(s) Document(s ) Sodium 137 137 - Normal (applies Sodium, Serum [facility] [Moles/volume] in mmol/L 145 to non-numeric Health Serum or Plasma mmol/L results) System Potassium 3.1 3.6 - Below low normal Potassium, [facility] [Mass/volume] in mmol/L 5.0 Serum Health Serum or Plasma mmol/L System Chloride 102 98 - Normal (applies Chloride, [facility] [Moles/volume] in mmol/L 107 to non-numeric Serum Health Serum or Plasma mmol/L results) System Carbon dioxide, 21.0 22.0 - Below low normal CO2, Serum [facility] total mmol/L 30.0 Health [Moles/volume] in mmol/L System Serum or Plasma Total Protein 7.7 6.3 - Normal (applies Total Protein [facility] mg/dl 8.2 to non-numeric Health mg/dl results) System Glucose 114 65 - Above high Glucose, [facility] [Mass/volume] in mg/dL 105 normal Serum Health Serum or Plasma mg/dL System Urea nitrogen 13 7 - 18 Normal (applies Blood Urea [facility] [Mass/volume] in mg/dl mg/dl to non-numeric Nitrogen, Health Serum or Plasma results) Serum System Creatinine 1.20 0.70 - Normal (applies Creatinine, [facility] [Mass/volume] in mg/dl 1.20 to non-numeric Serum Health Serum or Plasma mg/dl results) System Alkaline 130 38 - Above high Alkaline [facility] phosphatase {IU/L} 126 normal Phosphatase, Health isoenzymes IU/L Serum System [Enzymatic activity/volume] in Serum or Plasma by Heat stability Bilirubin.total 0.5 0.2 - Normal (applies Bilirubin, [facility] [Mass/volume] in mg/dl 1.3 to non-numeric Serum Total Health Serum or Plasma mg/dl results) System Direct Bilirubin 0.3 0.0 - Normal (applies Direct [facility] mg/dl 0.4 to non-numeric Bilirubin Health mg/dl results) System Aspartate 82 5 - 40 Above high Aspartate [facility] aminotransferase {IU/L} IU/L normal Transaminase, Health [Enzymatic Serum System activity/volume] in Serum or Plasma by With P-5'-P Albumin 3.6 3.9 - Below low normal Albumin, [facility] [Mass/volume] in {gm/dl} 5.0 Serum Health Serum or Plasma gm/dl System I. Phosphorus 3.7 2.5 - Normal (applies I. Phosphorus [facility] mg/dl 4.5 to non-numeric Health mg/dl results) System Alanine 65 7 - 56 Above high Alanine [facility] aminotransferase {IU/L} IU/L normal Aminotransfer Health [Enzymatic ase, Serum System activity/volume] in Serum or Plasma Calcium 8.4 8.4 - Normal (applies Calcium, [facility] [Mass/volume] in mg/dl 10.2 to non-numeric Total Serum Health Serum or Plasma mg/dl results) System A/G Ratio 0.88 Normal (applies A/G Ratio [facility] to non-numeric Health results) System Urate 5.6 2.5 - Normal (applies Uric Acid, [facility] [Mass/volume] in mg/dl 7.5 to non-numeric Serum Health Serum or Plasma mg/dl results) System Anion gap in Serum 14.00 8.00 - Above high Anion Gap [facility] or Plasma mmol/L 12.00 normal Health mmol/L System Glomerular 45.52 Normal (applies GFR [facility] filtration to non-numeric Health rate/1.73 sq results) System M.predicted [Volume Rate/Area] in Serum or Plasma by Creatinine-based formula (CKD-EPI) eGFR will provide clinicians with a more accurate indicator of renal function then the serum creatinine. The eGFR is automa tically calculated from an empiric formula (endorsed by the National Kid[employer] ion) which incorporates age, sex, and race.Clinicians may notice surprisingly low GFR's with serum creatinine valueswithin normal range- particularly in elderly wo men (with low muscle mass).In the hospital setting, the eGFR should add an element of safety in drug dosing, in assessing the risk of IV contrast administration, and in assessing vascular risk.The NKF staging system is as follows:Normal: eGFR >90 with no kidney markersStage 1: eGFR >90 with kidney markers*Stage 2: eGFR 60- 89Stage 3: eGFR 30-59Stage 4: eGFR 15-29Stage 5: eGFR <15 (usually requir ing dialysis)*Markers include: Proteinuria, Hematuria, abnormal imaging-studies, or other blood or urine test abnormalities ID Date Data Source [id number] 09/19/2016 06:00:00 AM EDT [facility] System Name Value Range Interpretation Description Data Sup porting Code Source(s) Document(s ) Magnesium 1.2 1.7 - Below low normal Magnesium, [facility] [Mass/volume {mEq/L} 2.2 Serum Health System ] in Serum mEq/L or Plasma ID Date Data Source [id number] 09/18/2016 11:22:00 PM EDT [facility] System Name Value Range Interpretation Description Data Sup porting Code Source(s) Document(s ) Bacteria NO GROWTH Culture [facility] identified in Bacteria Blood Health Syst em Blood by [facility] culture ID Date Data Source [id number] 09/18/2016 11:22:00 PM EDT [facility] System Name Value Range Interpretation Description Data Sup porting Code Source(s) Document(s ) Bacteria NO GROWTH Culture [facility] identified in Bacteria Blood Health Syst em Blood by [facility] culture ID Date Data Source [id number] 09/18/2016 10:46:00 AM EDT [facility] System Name Value Range Interpretation Description Data Sup porting Code Source(s) Document(s ) C peptide 0.52 0.80 - Below low normal C Peptide, [facility] [Mass/volum ng/mL 3.85 Serum Health System e] in Serum ng/mL or Plasma Test Performed at:[facility] [place], [place] [address]Xxttdspcya Cuba M.D. ID Date Data Source [id number] 09/18/2016 04:41:00 AM EDT [facility] System Name Value Range Interpretation Description Data Sup porting Code Source(s) Document(s ) Color YELLOW Yellow Normal (applies Color [facility] to non-numeric Health results) System Appearance of CLEAR Clear Normal (applies Urine [facility] Urine to non-numeric Appearance Health results) System Specific 1.025 1.001 - Normal (applies Urine Specific [facility] gravity of 1.035 to non-numeric [facility] Urine results) System pH.. 5.5 4.6 - 8.0 Normal (applies pH.. [facility] {pH_units} pH units to non-numeric Health results) System Glucose, UA NEGATIVE < 50 Normal (applies Glucose, UA [facility] mg/dl to non-numeric Health results) System Protein > =300 < 30 Normal (applies Protein [facility] [Mass/volume] mg/dl to non-numeric Health in Serum or results) System Plasma Bilirubin NEGATIVE Negative Normal (applies Bilirubin [facility] Urine Sm to Lg to non-numeric Urine Health results) System Urobilinogen 0.2 mg/dL 0.2 - 1.0 Normal (applies Urobilinogen [facility] [Mass/volume] mg/dL to non-numeric UA Health in Urine results) System Ketones NEGATIVE Negative Normal (applies Ketones UA [facility] [Mass/volume] mg/dL to non-numeric Health in Urine results) System Nitrate+Nitrit NEGATIVE Negative Normal (applies Nitrite [facility] Neg/Pos to non-numeric Health [Mass/volume] results) System in Unspecified specimen Leukocyte NEGATIVE Negative Normal (applies Leukocyte [facility] esterase Tr to Lg to non-numeric Esterase Health [Units/volume] results) Concentration System in Urine Leukocytes 5 {/HPF} 0 - 2 Normal (applies White Blood [facility] [#/volume] in /HPF to non-numeric Cells Health Unspecified results) System specimen by Automated count Red Blood 5 {/HPF} 0 - 1 Normal (applies Red Blood [facility] Cells /HPF to non-numeric Cells Health results) System Epithelial 8 {/HPF} 0 - 3 Normal (applies Epithelial [facility] cells /HPF to non-numeric Cells Health [Presence] in results) System Unspecified specimen by Wet preparation Bacteria 3+ 0 - 1+ Abnormal Bacteria [facility] [Presence] in /HPF (applies to Health Unspecified non-numeric System specimen results) Urine Blood SMALL Negative Abnormal Urine Blood [facility] Sm to Lg (applies to Health non-numeric System results) ID Date Data Source [id number] 09/18/2016 04:41:00 AM EDT [facility] Name Value Range Interpretation Description Data Sup porting Code Source(s) Document(s ) Leukocytes 8.6 4.8 - Normal (applies WBC Count [facility] [#/volume] in {10^3_u 10.8 to non-numeric Health Unspecified L} 10^3 uL results) System specimen by Automated count Erythrocytes 4.24 3.80 - Normal (applies RBC Count [facility] [#/volume] in {10^6_u 5.20 to non-numeric Health Blood by L} 10^6 uL results) System Automated count Hemoglobin 12.9 12.0 - Normal (applies Hemoglobin [facility] [Mass/volume] in {gm/dL} 16.0 to non-numeric Health Blood gm/dL results) System Hematocrit 38.7 % 36.0 - Normal (applies Hematocrit [facility] [Volume 46.0 % to non-numeric Health Fraction] of results) System Blood Erythrocyte mean 91.3 fl 83.0 - Normal (applies MCV [facility] corpuscular 98.0 fl to non-numeric Health volume [Entitic results) System volume] by Automated count Erythrocyte mean 30.4 pg 26.0 - Normal (applies MCH [facility] corpuscular 34.0 pg to non-numeric Health hemoglobin results) System [Entitic mass] by Automated count Erythrocyte mean 33.3 33.0 - Normal (applies MCHC [facility] corpuscular {gm/dL} 37.0 to non-numeric Health hemoglobin gm/dL results) System concentration [Mass/volume] by Automated count Erythrocyte 12.3 % 11.5 - Normal (applies RDW-CV [facility] distribution 14.5 % to non-numeric Health width [Entitic results) System volume] by Automated count Platelets 219 130 - Normal (applies Platelet Count [facility] [#/volume] in {10^3_u 400 to non-numeric Health Plasma by L} 10^3 uL results) System Automated count Platelet mean 11.3 fl 7.4 - Above high MPV [facility] volume [Entitic 10.4 fl normal Health volume] in Blood System by Automated count Monocytes 0.4 0.3 - Normal (applies Monocyte # [facility] [#/volume] in {10^3_u 0.9 to non-numeric Health Blood by Manual L} 10^3 uL results) System count Eosinophils 0.00 0.05 - Below low normal Eosinophil # [facility] [#/volume] in {10^3_u 0.30 Health Blood L} 10^3 uL System Neutrophils 6.9 2.0 - Normal (applies Neutrophil # [facility] [#/volume] in {10^3_u 8.1 to non-numeric Health Body fluid L} 10^3 uL results) System Basophils 0.02 0.00 - Normal (applies Basophil # [facility] [#/volume] in {10^3_u 0.10 to non-numeric Health Blood by L} 10^3 uL results) System Automated count Lymphocyte # 1.3 1.0 - Normal (applies Lymphocyte # [facility] {10^3_u 5.5 to non-numeric Health L} 10^3 uL results) System Neutrophils/100 79.6 % 55.0 - Above high Neutrophil % [facility] leukocytes in 75.0 % normal Health Blood by System Automated count Monocytes/100 4.9 % 6.0 - Below low normal Monocyte % [facility] leukocytes in 9.0 % Health Blood System Eosinophils/100 0.0 % 0.0 - Normal (applies Eosinophil % Ubal[facility] grace leukocytes in 4.0 % to non-numeric Health Unspecified results) System specimen Basophils/100 0.2 % 0.0 - Normal (applies Basophil % [facility] leukocytes in 1.0 % to non-numeric Health Unspecified results) System specimen by Manual count Lymphocytes 15.0 % 21.0 - Below low normal Lymphocyte % [facility] [#/volume] in 51.0 % Health Blood by System Automated count Immature 0.3 % 0.0 - Normal (applies Immature [facility] Granulocytes % 0.8 % to non-numeric Granulocytes % Healt h results) System Nucleated 0.0 0.0 - Normal (applies NRBC % [facility] erythrocytes {/100_W 0.0 to non-numeric Health [#/volume] in BC} /100 results) System Body fluid WBC Immature 0.03 0.00 - Normal (applies Immature [facility] Granulocytes # {10^3_u 0.09 to non-numeric Granulocytes # Healt h L} 10^3 uL results) System NRBC # 0.00 0.90 - Below low normal NRBC # [facility] {10^3_u 11.20 Health L} 10^3 uL System ID Date Data Source [id number] 09/18/2016 04:41:00 AM EDT [facility] Name Value Range Interpretation Description Data Sup porting Code Source(s) Document(s ) Sodium 139 137 - Normal (applies Sodium, Serum [facility] [Moles/volum mmol/L 145 to non-numeric Health Syste m e] in Serum mmol/L results) or Plasma Potassium 4.3 3.6 - Normal (applies Potassium, [facility] [Mass/volume mmol/L 5.0 to non-numeric Serum Health Syste m ] in Serum mmol/L results) or Plasma Chloride 102 98 - 107 Normal (applies Chloride, [facility] [Moles/volum mmol/L mmol/L to non-numeric Serum Health Syste m e] in Serum results) or Plasma Carbon 20.0 22.0 - Below low normal CO2, Serum [facility] dioxide, mmol/L 30.0 Health System total mmol/L [Moles/volum e] in Serum or Plasma Total 9.7 6.3 - Above high normal Total Protein [facility] Protein mg/dl 8.2 [facility] System mg/dl Glucose 37 mg/dL 65 - 105 Below lower panic Glucose, Serum [facility] [Mass/volume mg/dL limits Health System ] in Serum or Plasma Result Reporting|Telephone|hasmukh wu| 09/18/2016 at 5:51 AMCalled to:hasmukh Campos Name:Lilo by:hasmukh kumar 09/18/2016 / 5:51 AM Urea nitrogen 18 mg/dl 7 - 18 Normal (applies Blood Urea [facility] [Mass/volume] in mg/dl to non-numeric Nitrogen, Health S ystem Serum or Plasma results) Serum Creatinine 1.40 mg/dl 0.70 - Above high Creatinine, [facility] [Mass/volume] in 1.20 normal Serum [facility] Serum or Plasma mg/dl Alkaline phosphatase 171 {IU/L} 38 - 126 Above high Alkaline [facility] isoenzymes [Enzymatic IU/L normal Phosphatase, [facility]alt [facility] System activity/volume] in Serum Serum or Plasma by Heat stability Bilirubin.total 0.4 mg/dl 0.2 - 1.3 Normal (applies Bilirubin, [facility] [Mass/volume] in mg/dl to non-numeric Serum Total [facility] System Serum or Plasma results) Direct Bilirubin 0.2 mg/dl 0.0 - 0.4 Normal (applies Direct [facility] mg/dl to non-numeric Bilirubin [facility] results) Aspartate 170 {IU/L} 5 - 40 Above high Aspartate [facility] aminotransferase IU/L normal Transaminase, Health Sy stem [Enzymatic Serum activity/volume] in Serum or Plasma by With P-5'-P Albumin [Mass/volume] 4.6 3.9 - 5.0 Normal (applies Albumin, Ser um [facility] in Serum or Plasma {gm/dl} gm/dl to non-numeric Health System results) I. Phosphorus 4.1 mg/dl 2.5 - 4.5 Normal (applies I. Phosphorus [facility] mg/dl to non-numeric [facility] results) Alanine 96 {IU/L} 7 - 56 Above high Alanine [facility] aminotransferase IU/L normal Aminotransfera [facility] S [facility]stem [Enzymatic se, Serum activity/volume] in Serum or Plasma Calcium [Mass/volume] 10.0 mg/dl 8.4 - Normal (applies Calcium, Total [facility] in Serum or Plasma 10.2 to non-numeric Serum Health System mg/dl results) A/G Ratio 0.90 Normal (applies A/G Ratio [facility] to non-numeric [facility] System results) Urate [Mass/volume] 6.8 mg/dl 2.5 - 7.5 Normal (applies Uric Acid, [facility] in Serum or Plasma mg/dl to non-numeric Serum [facility] results) Anion gap in Serum or 17.00 8.00 - Above high Anion Gap [facility] Plasma mmol/L 12.00 normal Health System mmol/L Glomerular filtration 38.10 Normal (applies GFR [facility] rate/1.73 sq to non-numeric Health Syste m M.predicted [Volume results) Rate/Area] in Serum or Plasma by Creatinine-based formula (CKD-EPI) eGFR will provide clinicians with a more accurate indicator of renal function then the serum creatinine. The eGFR is automa tically calculated from an empiric formula (endorsed by the National Kid[employer] ion) which incorporates age, sex, and race.Clinicians may notice surprisingly low GFR's with serum creatinine valueswithin normal range- particularly in elderly wo men (with low muscle mass).In the hospital setting, the eGFR should add an element of safety in drug dosing, in assessing the risk of IV contrast administration, and in assessing vascular risk.The NKF staging system is as follows:Normal: eGFR >90 with no kidney markersStage 1: eGFR >90 with kidney markers*Stage 2: eGFR 60- 89Stage 3: eGFR 30-59Stage 4: eGFR 15-29Stage 5: eGFR <15 (usually requir ing dialysis)*Markers include: Proteinuria, Hematuria, abnormal imaging-studies, or other blood or urine test abnormalities ID Date Data Source [id number] 09/18/2016 04:41:00 AM EDT [facility] Name Value Range Interpretation Description Data Sup porting Code Source(s) Document(s ) Alcohol NON Normal (applies Alcohol Ethyl, [facility] Ethyl, DETECTED to non-numeric Blood Health System Blood None results) Detected ID Date Data Source [id number] 09/18/2016 04:41:00 AM EDT [facility] Name Value Range Interpretation Description Data Sup porting Code Source(s) Document(s ) Troponin I 0.02 0.00 - Normal (applies Troponin I [facility] Quantitative - ng/mL 0.04 to non-numeric Quantitative - Healt [facility] MV Only ng/mL results) MV Only System ID Date Data Source [id number] 09/18/2016 04:41:00 AM EDT [facility] Name Value Range Interpretation Description Data Sup porting Code Source(s) Document(s ) Amphetamine Negative Negative Normal (applies Amphetamine [facility] [Mass/volume] ng/ml to non-numeric Level, Urine Health in Urine results) System Cut-off = 1000 ng/mL Barbiturates Negative Negative Normal (applies Barbiturate [facility] [Mass/volume] in ng/ml to non-numeric Screen, Urine [facility] System Urine by Screen results) method Cut-off = 200 ng/mL Benzodiazepines Negative Negative Normal Benzodiazepines, [facility] [Mass/volume] in ng/mL (applies to Urine Health Urine non-numeric System results) Cut-off = 200 ng/mL Cocaine Negative Negative Normal (applies Cocaine [facility] metabolites.other ng/ml to non-numeric Metabolite [facility] [Mass/volume] in results) Screen, Urine Urine Cut-off = 300 ng/mL Methadone Positive Negative Abnormal (applies Methadone [facility] [Mass/volume] in to non-numeric Level, [facility]rine [facility]rine results) Cut-off = 300 ng/mL Opiate 300, Positive Negative ng/ml Abnormal (applies Opiate 300, [facility] Urine to non-numeric Urine [facility] results) Cut-off = 300 ng/mL Phencyclidine Negative Negative Normal (applies Phencyclidine, [facility] [Mass/volume] in ng/ml to non-numeric Urine [facility] S ystem Urine results) Cut-off = 25 ng/mL Cannabinoid Negative Negative Normal (applies Cannabinoid [facility] (THC) ng/mL to non-numeric (THC) Health System results) Cutt-off = 50These results are for medic al treatment only. The positive findings are unconfirmed. Request confirmatory/quanti tative test if needed. ID Date Data Source [id number] 09/12/2016 06:00:00 AM EDT [facility] Name Value Range Interpretation Description Data Sup porting Code Source(s) Document(s ) Anisocytosis Slight Normal (applies Anisocytosis [facility] [Presence] in to non-numeric Health Blood by results) System Automated count Basophil %. 1 % 0 - 1 % Normal (applies Basophil %. [facility] to non-numeric Health results) System Polys 43 % 55 - 75 Below low normal Polys [facility] % [facility] Lymphocyte %. 47 % 21 - 51 Normal (applies Lymphocyte %. [facility] % to non-numeric Health results) System Platelets Adequate Normal (applies Platelet Count [facility] [#/volume] in to non-numeric Estimate Health Blood by results) System Estimate Monocyte %. 7 % 6 - 9 % Normal (applies Monocyte %. [facility] to non-numeric Health results) System Eosinophils %. 2 % 1 - 3 % Normal (applies Eosinophils %. [facility] to non-numeric Health results) System ID Date Data Source [id number] 09/12/2016 06:00:00 AM EDT [facility] Name Value Range Interpretation Description Data Sup porting Code Source(s) Document(s ) Leukocytes 4.3 4.8 - Below low normal WBC Count [facility] [#/volume] in {10^3_u 10.8 Health Unspecified L} 10^3 uL System specimen by Automated count Erythrocytes 4.62 3.80 - Normal (applies RBC Count [facility] [#/volume] in {10^6_u 5.20 to non-numeric Health Blood by L} 10^6 uL results) System Automated count Hemoglobin 13.8 12.0 - Normal (applies Hemoglobin [facility] [Mass/volume] in {gm/dL} 16.0 to non-numeric Health Blood gm/dL results) System Hematocrit 41.4 % 36.0 - Normal (applies Hematocrit [facility] [Volume 46.0 % to non-numeric Health Fraction] of results) System Blood Erythrocyte mean 89.6 fl 83.0 - Normal (applies MCV [facility] corpuscular 98.0 fl to non-numeric Health volume [Entitic results) System volume] by Automated count Erythrocyte mean 29.9 pg 26.0 - Normal (applies MCH [facility] corpuscular 34.0 pg to non-numeric Health hemoglobin results) System [Entitic mass] by Automated count Erythrocyte mean 33.3 33.0 - Normal (applies MCHC [facility] corpuscular {gm/dL} 37.0 to non-numeric Health hemoglobin gm/dL results) System concentration [Mass/volume] by Automated count Erythrocyte 12.4 % 11.5 - Normal (applies RDW-CV [facility] distribution 14.5 % to non-numeric Health width [Entitic results) System volume] by Automated count Platelets 239 130 - Normal (applies Platelet Count [facility] [#/volume] in {10^3_u 400 to non-numeric Health Plasma by L} 10^3 uL results) System Automated count Platelet mean 11.1 fl 7.4 - Above high MPV [facility] volume [Entitic 10.4 fl normal Health volume] in Blood System by Automated count Monocytes 0.3 0.3 - Below low normal Monocyte # [facility] [#/volume] in {10^3_u 0.9 Health Blood by Manual L} 10^3 uL System count Eosinophils 0.13 0.05 - Normal (applies Eosinophil # [facility] [#/volume] in {10^3_u 0.30 to non-numeric Health Blood L} 10^3 uL results) System Neutrophils 1.9 2.0 - Below low normal Neutrophil # [facility] [#/volume] in {10^3_u 8.1 Health Body fluid L} 10^3 uL System Basophils 0.02 0.00 - Normal (applies Basophil # [facility] [#/volume] in {10^3_u 0.10 to non-numeric Health Blood by L} 10^3 uL results) System Automated count Lymphocyte # 2.0 1.0 - Normal (applies Lymphocyte # [facility] {10^3_u 5.5 to non-numeric Health L} 10^3 uL results) System Neutrophils/100 43.2 % 55.0 - Below low normal Neutrophil % [facility] leukocytes in 75.0 % Health Blood by System Automated count Monocytes/100 5.8 % 6.0 - Below low normal Monocyte % [facility] leukocytes in 9.0 % Health Blood System Eosinophils/100 3.0 % 0.0 - Normal (applies Eosinophil % [facility] leukocytes in 4.0 % to non-numeric Health Unspecified results) System specimen Basophils/100 0.5 % 0.0 - Normal (applies Basophil % [facility] leukocytes in 1.0 % to non-numeric Health Unspecified results) System specimen by Manual count Lymphocytes 47.3 % 21.0 - Normal (applies Lymphocyte % [facility] [#/volume] in 51.0 % to non-numeric Health Blood by results) System Automated count Immature 0.2 % 0.0 - Normal (applies Immature [facility] Granulocytes % 0.8 % to non-numeric Granulocytes % Healt h results) System Nucleated 0.0 0.0 - Normal (applies NRBC % [facility] erythrocytes {/100_W 0.0 to non-numeric Health [#/volume] in BC} /100 results) System Body fluid WBC Immature 0.01 0.00 - Normal (applies Immature [facility] Granulocytes # {10^3_u 0.09 to non-numeric Granulocytes # Healt h L} 10^3 uL results) System NRBC # 0.00 0.90 - Below low normal NRBC # [facility] {10^3_u 11.20 Health L} 10^3 uL System ID Date Data Source [id number] 09/12/2016 06:00:00 AM EDT [facility] Name Value Range Interpretation Description Data Sup porting Code Source(s) Document(s ) Magnesium 1.8 1.7 - Normal (applies Magnesium, [facility] [Mass/volume {mEq/L} 2.2 to non-numeric Serum Health Syste m ] in Serum mEq/L results) or Plasma ID Date Data Source [id number] 09/11/2016 06:00:00 AM EDT [facility] Name Value Range Interpretation Description Data Sup porting Code Source(s) Document(s ) Sodium 139 137 - Normal (applies Sodium, Serum [facility] [Moles/volume mmol/L 145 to non-numeric Health ] in Serum or mmol/L results) System Plasma Potassium 4.0 3.6 - Normal (applies Potassium, [facility] [Mass/volume] mmol/L 5.0 to non-numeric Serum Health in Serum or mmol/L results) System Plasma Chloride 104 98 - 107 Normal (applies Chloride, [facility] [Moles/volume mmol/L mmol/L to non-numeric Serum Health ] in Serum or results) System Plasma Carbon 27.0 22.0 - Normal (applies CO2, Serum [facility] dioxide, mmol/L 30.0 to non-numeric Health total mmol/L results) System [Moles/volume ] in Serum or Plasma Glucose 137 65 - 105 Above high normal Glucose, Serum [facility] [Mass/volume] mg/dL mg/dL Health in Serum or System Plasma Urea nitrogen 12 mg/dl 7 - 18 Normal (applies Blood Urea [facility] [Mass/volume] mg/dl to non-numeric Nitrogen, Health in Serum or results) Serum System Plasma Creatinine 1.20 0.70 - Normal (applies Creatinine, [facility] [Mass/volume] mg/dl 1.20 to non-numeric Serum Health in Serum or mg/dl results) System Plasma Calcium 9.2 8.4 - Normal (applies Calcium, Total [facility] [Mass/volume] mg/dl 10.2 to non-numeric Serum Health in Serum or mg/dl results) System Plasma Anion gap in 8.00 8.00 - Normal (applies Anion Gap [facility] Serum or mmol/L 12.00 to non-numeric Health Plasma mmol/L results) System ID Date Data Source [id number] 09/11/2016 06:00:00 AM EDT [facility] Name Value Range Interpretation Description Data Sup porting Code Source(s) Document(s ) Magnesium 1.2 1.7 - Below low normal Magnesium, [facility] [Mass/volume {mEq/L} 2.2 Serum [facility] System ] in Serum mEq/L or Plasma ID Date Data Source [id number] 09/10/2016 06:00:00 AM EDT [facility] Name Value Range Interpretation Description Data Sup porting Code Source(s) Document(s ) Hepatitis C <15 Not Normal (applies Hepatitis C [facility] Viral RNA Detected to non-numeric Viral RNA Health results) System Hepatitis C <1.18 Not Normal (applies Hepatitis C [facility] Viral RNA DetectedThe to non-numeric Viral RNA Health Quantitative analytical results) Quantitative System performance characteristics of thisassay have been determined by [facility].The modifications have not been cleared or approved bythe FDA. This assay has been validated pursuant to theCLIA regulations and is used for clinical purposes.This test was performed using the CLAIR(R)AmpliPr ep/CLAIR(R)TaqM an(R)HCV Test, v2.0.For more information on this test, go to:[email or web address] [email or web address]/faq/ [email or web address](This link is being provided for informational/e ducational purposes only.)Test Performed at:[facility], [place], [place] [address]PlunxtkhAlvaro Cuba M.D. ID Date Data Source [id number] 09/10/2016 06:00:00 AM EDT [facility] Name Value Range Interpretation Description Data Sup porting Code Source(s) Document(s ) Sodium 138 137 - Normal (applies Sodium, Serum [facility] [Moles/volume] in mmol/L 145 to non-numeric Health Serum or Plasma mmol/L results) System Potassium 4.0 3.6 - Normal (applies Potassium, [facility] [Mass/volume] in mmol/L 5.0 to non-numeric Serum Health Serum or Plasma mmol/L results) System Chloride 104 98 - Normal (applies Chloride, [facility] [Moles/volume] in mmol/L 107 to non-numeric Serum Health Serum or Plasma mmol/L results) System Carbon dioxide, 24.0 22.0 - Normal (applies CO2, Serum [facility] total mmol/L 30.0 to non-numeric Health [Moles/volume] in mmol/L results) System Serum or Plasma Total Protein 7.6 6.3 - Normal (applies Total Protein [facility] mg/dl 8.2 to non-numeric Health mg/dl results) System Glucose 85 65 - Normal (applies Glucose, [facility] [Mass/volume] in mg/dL 105 to non-numeric Serum Health Serum or Plasma mg/dL results) System Urea nitrogen 15 7 - 18 Normal (applies Blood Urea [facility] [Mass/volume] in mg/dl mg/dl to non-numeric Nitrogen, Health Serum or Plasma results) Serum System Creatinine 1.20 0.70 - Normal (applies Creatinine, [facility] [Mass/volume] in mg/dl 1.20 to non-numeric Serum Health Serum or Plasma mg/dl results) System Alkaline 111 38 - Normal (applies Alkaline [facility] phosphatase {IU/L} 126 to non-numeric Phosphatase, Health isoenzymes IU/L results) Serum System [Enzymatic activity/volume] in Serum or Plasma by Heat stability Bilirubin.total 0.2 0.2 - Normal (applies Bilirubin, [facility] [Mass/volume] in mg/dl 1.3 to non-numeric Serum Total Health Serum or Plasma mg/dl results) System Direct Bilirubin 0.1 0.0 - Normal (applies Direct [facility] mg/dl 0.4 to non-numeric Bilirubin Health mg/dl results) System Aspartate 49 5 - 40 Above high Aspartate [facility] aminotransferase {IU/L} IU/L normal Transaminase, Health [Enzymatic Serum System activity/volume] in Serum or Plasma by With P-5'-P Albumin 3.5 3.9 - Below low normal Albumin, [facility] [Mass/volume] in {gm/dl} 5.0 Serum Health Serum or Plasma gm/dl System I. Phosphorus 3.6 2.5 - Normal (applies I. Phosphorus [facility] mg/dl 4.5 to non-numeric Health mg/dl results) System Alanine 46 7 - 56 Normal (applies Alanine [facility] aminotransferase {IU/L} IU/L to non-numeric Aminotransfer Heal th [Enzymatic results) ase, Serum System activity/volume] in Serum or Plasma Calcium 8.9 8.4 - Normal (applies Calcium, [facility] [Mass/volume] in mg/dl 10.2 to non-numeric Total Serum Health Serum or Plasma mg/dl results) System A/G Ratio 0.85 Normal (applies A/G Ratio [facility] to non-numeric Health results) System Urate 5.3 2.5 - Normal (applies Uric Acid, [facility] [Mass/volume] in mg/dl 7.5 to non-numeric Serum Health Serum or Plasma mg/dl results) System Anion gap in Serum 10.00 8.00 - Normal (applies Anion Gap [facility] or Plasma mmol/L 12.00 to non-numeric Health mmol/L results) System Glomerular 45.52 Normal (applies GFR [facility] filtration to non-numeric Health rate/1.73 sq results) System M.predicted [Volume Rate/Area] in Serum or Plasma by Creatinine-based formula (CKD-EPI) eGFR will provide clinicians with a more accurate indicator of renal function then the serum creatinine. The eGFR is automa tically calculated from an empiric formula (endorsed by the National Kidney [employer] ion) which incorporates age, sex, and race.Clinicians may notice surprisingly low GFR's with serum creatinine valueswithin normal range- particularly in elderly wo men (with low muscle mass).In the hospital setting, the eGFR should add an element of safety in drug dosing, in assessing the risk of IV contrast administration, and in assessing vascular risk.The NKF staging system is as follows:Normal: eGFR >90 with no kidney markersStage 1: eGFR >90 with kidney markers*Stage 2: eGFR 60- 89Stage 3: eGFR 30-59Stage 4: eGFR 15-29Stage 5: eGFR <15 (usually requir ing dialysis)*Markers include: Proteinuria, Hematuria, abnormal imaging-studies, or other blood or urine test abnormalities ID Date Data Source [id number] 09/10/2016 06:00:00 AM EDT [facility] Name Value Range Interpretation Description Data Sup porting Code Source(s) Document(s ) Magnesium 1.3 1.7 - Below low normal Magnesium, [facility] [Mass/volume {mEq/L} 2.2 Serum Health System ] in Serum mEq/L or Plasma ID Date Data Source [id number] 09/08/2016 06:00:00 AM [facility] System Name Value Range Interpretation Description Data Sup porting Code Source(s) Document(s ) Sodium 138 137 - Normal (applies Sodium, Serum [facility] [Moles/volume] in mmol/L 145 to non-numeric Health Serum or Plasma mmol/L results) System Potassium 3.6 3.6 - Normal (applies Potassium, [facility] [Mass/volume] in mmol/L 5.0 to non-numeric Serum Health Serum or Plasma mmol/L results) System Chloride 109 98 - Above high Chloride, [facility] [Moles/volume] in mmol/L 107 normal Serum Health Serum or Plasma mmol/L System Carbon dioxide, 20.0 22.0 - Below low normal CO2, Serum [facility] total mmol/L 30.0 Health [Moles/volume] in mmol/L System Serum or Plasma Total Protein 7.2 6.3 - Normal (applies Total Protein [facility] mg/dl 8.2 to non-numeric Health mg/dl results) System Glucose 193 65 - Above high Glucose, [facility] [Mass/volume] in mg/dL 105 normal Serum Health Serum or Plasma mg/dL System Urea nitrogen 25 7 - 18 Above high Blood Urea [facility] [Mass/volume] in mg/dl mg/dl normal Nitrogen, Health Serum or Plasma Serum System Creatinine 1.60 0.70 - Above high Creatinine, [facility] [Mass/volume] in mg/dl 1.20 normal Serum Health Serum or Plasma mg/dl System Alkaline 100 38 - Normal (applies Alkaline [facility] phosphatase {IU/L} 126 to non-numeric Phosphatase, Health isoenzymes IU/L results) Serum System [Enzymatic activity/volume] in Serum or Plasma by Heat stability Bilirubin.total 0.2 0.2 - Normal (applies Bilirubin, [facility] [Mass/volume] in mg/dl 1.3 to non-numeric Serum Total Health Serum or Plasma mg/dl results) System Direct Bilirubin 0.1 0.0 - Normal (applies Direct [facility] mg/dl 0.4 to non-numeric Bilirubin Health mg/dl results) System Aspartate 33 5 - 40 Normal (applies Aspartate [facility] aminotransferase {IU/L} IU/L to non-numeric Transaminase, Heal th [Enzymatic results) Serum System activity/volume] in Serum or Plasma by With P-5'-P Albumin 3.4 3.9 - Below low normal Albumin, [facility] [Mass/volume] in {gm/dl} 5.0 Serum Health Serum or Plasma gm/dl System I. Phosphorus 4.3 2.5 - Normal (applies I. Phosphorus [facility] mg/dl 4.5 to non-numeric Health mg/dl results) System Alanine 40 7 - 56 Normal (applies Alanine [facility] aminotransferase {IU/L} IU/L to non-numeric Aminotransfer Heal th [Enzymatic results) ase, Serum System activity/volume] in Serum or Plasma Calcium 8.8 8.4 - Normal (applies Calcium, [facility] [Mass/volume] in mg/dl 10.2 to non-numeric Total Serum Health Serum or Plasma mg/dl results) System A/G Ratio 0.89 Normal (applies A/G Ratio [facility] to non-numeric Health results) System Urate 6.4 2.5 - Normal (applies Uric Acid, [facility] [Mass/volume] in mg/dl 7.5 to non-numeric Serum Health Serum or Plasma mg/dl results) System Anion gap in Serum 9.00 8.00 - Normal (applies Anion Gap [facility] grace or Plasma mmol/L 12.00 to non-numeric Health mmol/L results) System Glomerular 32.66 Normal (applies GFR [facility] filtration to non-numeric Health rate/1.73 sq results) System M.predicted [Volume Rate/Area] in Serum or Plasma by Creatinine-based formula (CKD-EPI) eGFR will provide clinicians with a more accurate indicator of renal function then the serum creatinine. The eGFR is automa tically calculated from an empiric formula (endorsed by the National Kid[employer] ion) which incorporates age, sex, and race.Clinicians may notice surprisingly low GFR's with serum creatinine valueswithin normal range- particularly in elderly wo men (with low muscle mass).In the hospital setting, the eGFR should add an element of safety in drug dosing, in assessing the risk of IV contrast administration, and in assessing vascular risk.The NKF staging system is as follows:Normal: eGFR >90 with no kidney markersStage 1: eGFR >90 with kidney markers*Stage 2: eGFR 60- 89Stage 3: eGFR 30-59Stage 4: eGFR 15-29Stage 5: eGFR <15 (usually requir ing dialysis)*Markers include: Proteinuria, Hematuria, abnormal imaging-studies, or other blood or urine test abnormalities ID Date Data Source [id number] 09/08/2016 06:00:00 AM EDT [facility] Name Value Range Interpretation Description Data Sup porting Code Source(s) Document(s ) Magnesium 1.2 1.7 - Below low normal Magnesium, [facility] [Mass/volume {mEq/L} 2.2 Serum Health System ] in Serum mEq/L or Plasma ID Date Data Source [id number] 09/07/2016 06:00:00 AM EDT [facility] Name Value Range Interpretation Description Data Sup porting Code Source(s) Document(s ) Hepatitis 31.90 {Ratio} <1.0 Above high Hepatitis C [facility] C Ratio Ratio normal Ratio Health System Hepatitis DNRTest Performed Normal (applies Hepatitis B [facility] B Surface at:[facility] to non-numeric Surface Health Antigen Diagnostics, One results) Antigen Neut System [place], [place] [address]Alvaro [place] M.D. Hepatitis Non Normal (applies Hepatitis B [facility] B Core ReactiveReference to non-numeric Core Health Antibody Range: Non Reactive results) Antibody IgM System IgM Hepatitis NonreactiveReferenc Normal (applies Hepatitis A [facility] A IgM e Range: to non-numeric IgM Antibody Health Antibody Nonreactive results) System Hepatitis Non Normal (applies Hepatitis B [facility] B Surface ReactiveReference to non-numeric Surface Health Antigen. Range: Non Reactive results) Antigen. System Hepatitis ReactiveReference Abnormal Hepatitis C [facility] Viral Range: Non (applies to Viral Health Antibody ReactiveFollowing non-numeric Antibody System CDC recommendations results) (MMWR No. 62, 2013), thispatient's HCV Antibody Reactive sample will be tested forthe presence of HCV RNA by a Nucleic Acid AmplificationTest (NAAT) to determine if the patient has an active HCVinfection. Result Reporting|Telephone |Meenakshi| 09/09/2016 at 7:56 AMCalled to:Kelsea Name:Narciso ck by:Meenakshi 09/09/2016 / 7:56 AM ID Date Data Source [id number] 09/07/2016 06:00:00 AM EDT [facility] Name Value Range Interpretation Description Data Source(s ) Supporting Code Document(s ) [id number] 194.75 Normal (applies to [id number] [facility] non-numeric [facility] results) tHbWB 2563.49 Normal (applies to tHbWB [facility] non-numeric [facility] results) %HbA1C 9.10 % 3.00 - Above high normal %HbA1C [facility] 6.50 % [facility] ID Date Data Source [id number] 09/07/2016 06:00:00 AM EDT [facility] Name Value Range Interpretation Description Data Sup porting Code Source(s) Document(s ) Anisocytosis Slight Normal (applies Anisocytosis [facility] [Presence] in to non-numeric Health Blood by results) System Automated count Polys 62 % 55 - 75 Normal (applies Polys [facility] % to non-numeric Health results) System Lymphocyte %. 29 % 21 - 51 Normal (applies Lymphocyte %. [facility] % to non-numeric Health results) System Variant 3 % Normal (applies Atypical [facility] lymphocytes to non-numeric Lymphocyte Health [Presence] in results) Count System Blood by Automated count Platelets Large Normal (applies Platelet Count [facility] [#/volume] in Platelets to non-numeric Estimate Health Blood by results) System Estimate Monocyte %. 5 % 6 - 9 % Below low normal Monocyte %. [facility] Eosinophils %. 1 % 1 - 3 % Normal (applies Eosinophils %. [facility] to non-numeric Health results) System ID Date Data Source [id number] 09/07/2016 06:00:00 AM EDT [facility] Name Value Range Interpretation Description Data Sup porting Code Source(s) Document(s ) Leukocytes 6.7 4.8 - Normal (applies WBC Count [facility] [#/volume] in {10^3_u 10.8 to non-numeric Health Unspecified L} 10^3 uL results) System specimen by Automated count Erythrocytes 3.90 3.80 - Normal (applies RBC Count [facility] [#/volume] in {10^6_u 5.20 to non-numeric Health Blood by L} 10^6 uL results) System Automated count Hemoglobin 11.9 12.0 - Below low normal Hemoglobin [facility] [Mass/volume] in {gm/dL} 16.0 Health Blood gm/dL System Hematocrit 35.0 % 36.0 - Below low normal Hematocrit [facility] [Volume 46.0 % Health Fraction] of System Blood Erythrocyte mean 89.7 fl 83.0 - Normal (applies MCV [facility] corpuscular 98.0 fl to non-numeric Health volume [Entitic results) System volume] by Automated count Erythrocyte mean 30.5 pg 26.0 - Normal (applies MCH [facility] corpuscular 34.0 pg to non-numeric Health hemoglobin results) System [Entitic mass] by Automated count Erythrocyte mean 34.0 33.0 - Normal (applies MCHC [facility] corpuscular {gm/dL} 37.0 to non-numeric Health hemoglobin gm/dL results) System concentration [Mass/volume] by Automated count Erythrocyte 12.7 % 11.5 - Normal (applies RDW-CV [facility] distribution 14.5 % to non-numeric Health width [Entitic results) System volume] by Automated count Platelets 208 130 - Normal (applies Platelet Count [facility] [#/volume] in {10^3_u 400 to non-numeric Health Plasma by L} 10^3 uL results) System Automated count Platelet mean 11.4 fl 7.4 - Above high MPV [facility] volume [Entitic 10.4 fl normal Health volume] in Blood System by Automated count Monocytes 0.4 0.3 - Normal (applies Monocyte # [facility] [#/volume] in {10^3_u 0.9 to non-numeric Health Blood by Manual L} 10^3 uL results) System count Eosinophils 0.06 0.05 - Normal (applies Eosinophil # [facility] [#/volume] in {10^3_u 0.30 to non-numeric Health Blood L} 10^3 uL results) System Neutrophils 4.0 2.0 - Normal (applies Neutrophil # [facility] [#/volume] in {10^3_u 8.1 to non-numeric Health Body fluid L} 10^3 uL results) System Basophils 0.02 0.00 - Normal (applies Basophil # [facility] [#/volume] in {10^3_u 0.10 to non-numeric Health Blood by L} 10^3 uL results) System Automated count Lymphocyte # 2.2 1.0 - Normal (applies Lymphocyte # [facility] {10^3_u 5.5 to non-numeric Health L} 10^3 uL results) System Neutrophils/100 59.5 % 55.0 - Normal (applies Neutrophil % [facility] leukocytes in 75.0 % to non-numeric Health Blood by results) System Automated count Monocytes/100 6.3 % 6.0 - Normal (applies Monocyte % [facility] leukocytes in 9.0 % to non-numeric Health Blood results) System Eosinophils/100 0.9 % 0.0 - Normal (applies Eosinophil % [facility] leukocytes in 4.0 % to non-numeric Health Unspecified results) System specimen Basophils/100 0.3 % 0.0 - Normal (applies Basophil % [facility] leukocytes in 1.0 % to non-numeric Health Unspecified results) System specimen by Manual count Lymphocytes 32.7 % 21.0 - Normal (applies Lymphocyte % [facility] [#/volume] in 51.0 % to non-numeric Health Blood by results) System Automated count Immature 0.3 % 0.0 - Normal (applies Immature [facility] Granulocytes % 0.8 % to non-numeric Granulocytes % Healt h results) System Nucleated 0.0 0.0 - Normal (applies NRBC % [facility] erythrocytes {/100_W 0.0 to non-numeric Health [#/volume] in BC} /100 results) System Body fluid WBC Immature 0.02 0.00 - Normal (applies Immature [facility] Granulocytes # {10^3_u 0.09 to non-numeric Granulocytes # Healt h L} 10^3 uL results) System NRBC # 0.00 0.90 - Below low normal NRBC # [facility] {10^3_u 11.20 Health L} 10^3 uL System ID Date Data Source [id number] 09/07/2016 06:00:00 AM EDT [facility] Name Value Range Interpretation Description Data Sup porting Code Source(s) Document(s ) Thyrotropin 0.570 0.380 - Normal (applies Thyroid [facility] [Mass/volume] {mIU/mL} 6.150 to non-numeric Stimulating Health in Serum or mIU/mL results) Hormone, System Plasma Serum ID Date Data Source [id number] 09/07/2016 06:00:00 AM EDT [facility] Name Value Range Interpretation Description Data Sup porting Code Source(s) Document(s ) HIV test, NONREACTIVE Normal Normal (applies HIV test, [facility] Routine Range: Non to non-numeric Routine Health (antigen ReactiveNegative results) (antigen and System and for HIV-1 antigen antibody antibody and HIV-1/HIV-2 testing) testing) antibodies. No laboratory evidence of HIV infection.Test was performed at [address] ID Date Data Source [id number] 09/07/2016 06:00:[address] [facility] System Name Value Range Interpretation Description Data Sup porting Code Source(s) Document(s ) Sodium 140 137 - Normal (applies Sodium, Serum [facility] [Moles/volume] in mmol/L 145 to non-numeric Health Serum or Plasma mmol/L results) System Potassium 4.4 3.6 - Normal (applies Potassium, [facility] [Mass/volume] in mmol/L 5.0 to non-numeric Serum Health Serum or Plasma mmol/L results) System Chloride 110 98 - Above high Chloride, [facility] [Moles/volume] in mmol/L 107 normal Serum Health Serum or Plasma mmol/L System Carbon dioxide, 20.0 22.0 - Below low normal CO2, Serum [facility] total mmol/L 30.0 Health [Moles/volume] in mmol/L System Serum or Plasma Total Protein 7.8 6.3 - Normal (applies Total Protein [facility] mg/dl 8.2 to non-numeric Health mg/dl results) System Glucose 106 65 - Above high Glucose, [facility] [Mass/volume] in mg/dL 105 normal Serum Health Serum or Plasma mg/dL System Urea nitrogen 33 7 - 18 Above high Blood Urea [facility] [Mass/volume] in mg/dl mg/dl normal Nitrogen, Health Serum or Plasma Serum System Creatinine 2.40 0.70 - Above high Creatinine, [facility] [Mass/volume] in mg/dl 1.20 normal Serum Health Serum or Plasma mg/dl System Alkaline 112 38 - Normal (applies Alkaline [facility] phosphatase {IU/L} 126 to non-numeric Phosphatase, Health isoenzymes IU/L results) Serum System [Enzymatic activity/volume] in Serum or Plasma by Heat stability Bilirubin.total 0.5 0.2 - Normal (applies Bilirubin, [facility] [Mass/volume] in mg/dl 1.3 to non-numeric Serum Total Health Serum or Plasma mg/dl results) System Direct Bilirubin 0.2 0.0 - Normal (applies Direct [facility] mg/dl 0.4 to non-numeric Bilirubin Health mg/dl results) System Aspartate 42 5 - 40 Above high Aspartate [facility] aminotransferase {IU/L} IU/L normal Transaminase, Health [Enzymatic Serum System activity/volume] in Serum or Plasma by With P-5'-P Albumin 3.7 3.9 - Below low normal Albumin, [facility] [Mass/volume] in {gm/dl} 5.0 Serum Health Serum or Plasma gm/dl System I. Phosphorus 4.5 2.5 - Normal (applies I. Phosphorus [facility] mg/dl 4.5 to non-numeric Health mg/dl results) System Alanine 55 7 - 56 Normal (applies Alanine [facility] aminotransferase {IU/L} IU/L to non-numeric Aminotransfer Heal th [Enzymatic results) ase, Serum System activity/volume] in Serum or Plasma Calcium 9.2 8.4 - Normal (applies Calcium, [facility] [Mass/volume] in mg/dl 10.2 to non-numeric Total Serum Health Serum or Plasma mg/dl results) System A/G Ratio 0.90 Normal (applies A/G Ratio [facility] to non-numeric Health results) System Urate 8.3 2.5 - Above high Uric Acid, [facility] [Mass/volume] in mg/dl 7.5 normal Serum Health Serum or Plasma mg/dl System Anion gap in Serum 10.00 8.00 - Normal (applies Anion Gap [facility] or Plasma mmol/L 12.00 to non-numeric Health mmol/L results) System Glomerular 20.46 Normal (applies GFR [facility] filtration to non-numeric Health rate/1.73 sq results) System M.predicted [Volume Rate/Area] in Serum or Plasma by Creatinine-based formula (CKD-EPI) eGFR will provide clinicians with a more accurate indicator of renal function then the serum creatinine. The eGFR is automa tically calculated from an empiric formula (endorsed by the [employer] ion) which incorporates age, sex, and race.Clinicians may notice surprisingly low GFR's with serum creatinine valueswithin normal range- particularly in elderly wo men (with low muscle mass).In the hospital setting, the eGFR should add an element of safety in drug dosing, in assessing the risk of IV contrast administration, and in assessing vascular risk.The NKF staging system is as follows:Normal: eGFR >90 with no kidney markersStage 1: eGFR >90 with kidney markers*Stage 2: eGFR 60- 89Stage 3: eGFR 30-59Stage 4: eGFR 15-29Stage 5: eGFR <15 (usually requir ing dialysis)*Markers include: Proteinuria, Hematuria, abnormal imaging-studies, or other blood or urine test abnormalities ID Date Data Source [id number] 09/07/2016 06:00:00 AM EDT [facility] Name Value Range Interpretation Description Data Sup porting Code Source(s) Document(s ) Magnesium 1.3 1.7 - Below low normal Magnesium, [facility] [Mass/volume {mEq/L} 2.2 Serum Health System ] in Serum mEq/L or Plasma ID Date Data Source [id number] 09/07/2016 06:00:00 AM EDT [facility] Name Value Range Interpretation Description Data Sup porting Code Source(s) Document(s ) Triglyceride 118 35 - 135 Normal (applies Triglycerides [facility] [Mass/volume] mg/dl mg/dl to non-numeric , Serum Health in Serum or results) System Plasma Optimal = < 100 mg/dLBoderline High = 15 0 - 199 mg/dLHigh = 200 - 499 mg/dLVery High = > 500 mg/dL Cholesterol 169 mg/dl *.* mg/dl Normal (applies Cholesterol, [facility] [Mass/volume] in to non-numeric Serum Health S yste Serum or Plasma results) <200 mg/dL = [id number] - 239 md/dL = Borderline>240 mg/dL = High Risk Cholesterol in HDL 38.0 mg/dL 32.0 - Normal (applies HDL Choleste rol, [facility] [Mass/volume] in 75.0 mg/dL to non-numeric Serum Health System Serum or Plasma results) Cholesterol in LDL 107.4 Normal (applies Low Density [facility] [Mass/volume] in mg/dL to non-numeric Lipoprotein, Healt h System Serum or Plasma results) Calculated OPTIMAL: LESS THAN 100 mg/dLNEAR OPTIMAL : 100 - 129 mg/dLBODERLINE HIGH: 130 - 150 mg/dL Cholesterol in VLDL 23.6 Normal (applies to VLDL, Serum [facility] [Mass/volume] in non-numeric System Serum or Plasma results) CHD Risk 4.45 2.40 - Normal (applies to CHD Risk [facility] 5.30 non-numeric System results) ID Date Data Source [id number] 09/06/2016 08:40:00 PM EDT [facility] Name Value Range Interpretation Description Data Sup porting Code Source(s) Document(s ) Amphetamine Negative Negative Normal (applies Amphetamine [facility] [Mass/volume] ng/ml to non-numeric Level, Urine Health in Urine results) System Cut-off = 1000 ng/mL Barbiturates Negative Negative Normal (applies Barbiturate [facility] [Mass/volume] in ng/ml to non-numeric Screen, Urine [facility] Urine by Screen results) method Cut-off = 200 ng/mL Benzodiazepines Negative Negative Normal Benzodiazepines, [facility] [Mass/volume] in ng/mL (applies to Urine Health Urine non-numeric System results) Cut-off = 200 ng/mL Cocaine Negative Negative Normal (applies Cocaine [facility] metabolites.other ng/ml to non-numeric Metabolite Health System [Mass/volume] in results) Screen, Urine Urine Cut-off = 300 ng/mL Methadone Negative Negative Normal (applies Methadone [facility] [Mass/volume] in to non-numeric Level, Urine [facility] System Urine results) Cut-off = 300 ng/mL Opiate 300, Positive Negative ng/ml Abnormal (applies Opiate 300, [facility] Urine to non-numeric Urine Health System results) Cut-off = 300 ng/mL Phencyclidine Negative Negative Normal (applies Phencyclidine, [facility] [Mass/volume] in ng/ml to non-numeric Urine Health S yste Urine results) Cut-off = 25 ng/mL Cannabinoid Negative Negative Normal (applies Cannabinoid [facility] (THC) ng/mL to non-numeric (THC) Health System results) Cutt-off = 50These results are for medic al treatment only. The positive findings are unconfirmed. Request confirmatory/quanti tative test if needed. ID Date Data Source [id number] 09/06/2016 05:40:00 PM EDT [facility] Name Value Range Interpretation Description Data Sup porting Code Source(s) Document(s ) PH* 7.285 7.310 - Below low normal PH* [facility] {pH_unit 7.410 pH Health System s} units PCO2* 37.9 40.0 - Below low normal PCO2* [facility] {mm_Hg} 52.0 mm Health System Hg Base -8.60 -3.00 - Below low normal Base Excess* [facility] Excess* {mEq/L} 3.00 Health System mEq/L HCO3* 18.0 22.0 - Below low normal HCO3* [facility] mmol/L 27.0 Health System mmol/L Chloride, 104 98 - 107 Normal (applies Chloride, VB [facility] VB mmol/L mmol/L to non-numeric Health System results) Lactate. 1.1 0.7 - Normal (applies Lactate. [facility] mmol/L 2.1 to non-numeric Health System mmol/L results) Glucose, VB 346 65 - 110 Above high normal Glucose, VB [facility] mg/dL mg/dL Health System Potassium, 3.8 3.6 - Normal (applies Potassium, VB [facility] VB mmol/L 5.0 to non-numeric Health System mmol/L results) Sodium, VB 134 137 - Below low normal Sodium, VB [facility] mmol/L 145 Health System mmol/L Ionized 1.23 1.15 - Normal (applies Ionized [facility] Calcium, VB mmol/L 1.29 to non-numeric Calcium, VB Health Syst em mmol/L results) O2 96.30 % Normal (applies O2 Saturation* [facility] Saturation* to non-numeric Health System results) ID Date Data Source [id number] 09/06/2016 05:09:00 PM EDT [facility] Name Value Range Interpretation Description Data Sup porting Code Source(s) Document(s ) Color YELLOW Yellow Normal (applies Color [facility] to non-numeric Health results) System Appearance of CLEAR Clear Normal (applies Urine [facility] Urine to non-numeric Appearance Health results) System Specific > 1.030 1.001 - Normal (applies Urine Specific [facility] gravity of 1.035 to non-numeric [facility] Urine results) System pH.. 5.5 4.6 - 8.0 Normal (applies pH.. [facility] {pH_units} pH units to non-numeric Health results) System Glucose, UA 100 mg/dl < 50 Normal (applies Glucose, UA [facility] mg/dl to non-numeric Health results) System Protein > =300 < 30 Normal (applies Protein [facility] [Mass/volume] mg/dl to non-numeric Health in Serum or results) System Plasma Bilirubin NEGATIVE Negative Normal (applies Bilirubin [facility] Urine Sm to Lg to non-numeric Urine Health results) System Urobilinogen 0.2 mg/dL 0.2 - 1.0 Normal (applies Urobilinogen [facility] [Mass/volume] mg/dL to non-numeric UA Health in Urine results) System Ketones NEGATIVE Negative Normal (applies Ketones UA [facility] [Mass/volume] mg/dL to non-numeric Health in Urine results) System Nitrate+Nitrit NEGATIVE Negative Normal (applies Nitrite [facility] Neg/Pos to non-numeric Health [Mass/volume] results) System in Unspecified specimen Leukocyte MODERATE Negative Abnormal Leukocyte [facility] esterase Tr to Lg (applies to Esterase Health [Units/volume] non-numeric Concentration System in Urine results) Leukocytes > 30 0 - 2 Normal (applies White Blood [facility] [#/volume] in /HPF to non-numeric Cells Health Unspecified results) System specimen by Automated count White Blood 3 0 Normal (applies White Blood [facility] Cell Clump to non-numeric Cell Clump Health results) System Red Blood 10 {/HPF} 0 - 1 Normal (applies Red Blood [facility] Cells /HPF to non-numeric Cells Health results) System Epithelial 4 {/HPF} 0 - 3 Normal (applies Epithelial [facility] cells /HPF to non-numeric Cells Health [Presence] in results) System Unspecified specimen by Wet preparation Bacteria 4+ 0 - 1+ Abnormal Bacteria [facility] [Presence] in /HPF (applies to Health Unspecified non-numeric System specimen results) Urine Blood LARGE Negative Abnormal Urine Blood [facility] Sm to Lg (applies to Health non-numeric System results) ID Date Data Source [id number] 09/06/2016 03:11:00 PM EDT [facility] Name Value Range Interpretation Description Data Sup porting Code Source(s) Document(s ) Leukocytes 12.6 4.8 - Above high WBC Count [facility] [#/volume] in {10^3_u 10.8 normal Health Unspecified L} 10^3 uL System specimen by Automated count Erythrocytes 4.23 3.80 - Normal (applies RBC Count [facility] [#/volume] in {10^6_u 5.20 to non-numeric Health Blood by L} 10^6 uL results) System Automated count Hemoglobin 13.0 12.0 - Normal (applies Hemoglobin [facility] [Mass/volume] in {gm/dL} 16.0 to non-numeric Health Blood gm/dL results) System Hematocrit 37.6 % 36.0 - Normal (applies Hematocrit [facility] [Volume 46.0 % to non-numeric Health Fraction] of results) System Blood Erythrocyte mean 88.9 fl 83.0 - Normal (applies MCV [facility] corpuscular 98.0 fl to non-numeric Health volume [Entitic results) System volume] by Automated count Erythrocyte mean 30.7 pg 26.0 - Normal (applies MCH [facility] corpuscular 34.0 pg to non-numeric Health hemoglobin results) System [Entitic mass] by Automated count Erythrocyte mean 34.6 33.0 - Normal (applies MCHC [facility] corpuscular {gm/dL} 37.0 to non-numeric Health hemoglobin gm/dL results) System concentration [Mass/volume] by Automated count Erythrocyte 12.9 % 11.5 - Normal (applies RDW-CV [facility] distribution 14.5 % to non-numeric Health width [Entitic results) System volume] by Automated count Platelets 238 130 - Normal (applies Platelet Count [facility] [#/volume] in {10^3_u 400 to non-numeric Health Plasma by L} 10^3 uL results) System Automated count Platelet mean 11.5 fl 7.4 - Above high MPV [facility] volume [Entitic 10.4 fl normal Health volume] in Blood System by Automated count Monocytes 0.9 0.3 - Normal (applies Monocyte # [facility] [#/volume] in {10^3_u 0.9 to non-numeric Health Blood by Manual L} 10^3 uL results) System count Eosinophils 0.01 0.05 - Below low normal Eosinophil # [facility] [#/volume] in {10^3_u 0.30 Health Blood L} 10^3 uL System Neutrophils 10.2 2.0 - Above high Neutrophil # [facility] [#/volume] in {10^3_u 8.1 normal Health Body fluid L} 10^3 uL System Basophils 0.04 0.00 - Normal (applies Basophil # [facility] [#/volume] in {10^3_u 0.10 to non-numeric Health Blood by L} 10^3 uL results) System Automated count Lymphocyte # 1.5 1.0 - Normal (applies Lymphocyte # [facility] {10^3_u 5.5 to non-numeric Health L} 10^3 uL results) System Neutrophils/100 80.5 % 55.0 - Above high Neutrophil % [facility] leukocytes in 75.0 % normal Health Blood by System Automated count Monocytes/100 7.0 % 6.0 - Normal (applies Monocyte % [facility] leukocytes in 9.0 % to non-numeric Health Blood results) System Eosinophils/100 0.1 % 0.0 - Normal (applies Eosinophil % [facility] leukocytes in 4.0 % to non-numeric Health Unspecified results) System specimen Basophils/100 0.3 % 0.0 - Normal (applies Basophil % [facility] leukocytes in 1.0 % to non-numeric Health Unspecified results) System specimen by Manual count Lymphocytes 11.9 % 21.0 - Below low normal Lymphocyte % [facility] [#/volume] in 51.0 % Health Blood by System Automated count Immature 0.2 % 0.0 - Normal (applies Immature [facility] Granulocytes % 0.8 % to non-numeric Granulocytes % Healt h results) System Nucleated 0.0 0.0 - Normal (applies NRBC % [facility] erythrocytes {/100_W 0.0 to non-numeric Health [#/volume] in BC} /100 results) System Body fluid WBC Immature 0.03 0.00 - Normal (applies Immature [facility] Granulocytes # {10^3_u 0.09 to non-numeric Granulocytes # Healt h L} 10^3 uL results) System NRBC # 0.00 0.90 - Below low normal NRBC # [facility] {10^3_u 11.20 Health L} 10^3 uL System ID Date Data Source [id number] 09/06/2016 03:11:00 PM EDT [facility] Name Value Range Interpretation Description Data Sup porting Code Source(s) Document(s ) Sodium 133 137 - Below low normal Sodium, Serum [facility] [Moles/volume] in mmol/L 145 Health Serum or Plasma mmol/L System Potassium 5.0 3.6 - Normal (applies Potassium, [facility] [Mass/volume] in mmol/L 5.0 to non-numeric Serum Health Serum or Plasma mmol/L results) System Chloride 102 98 - Normal (applies Chloride, [facility] [Moles/volume] in mmol/L 107 to non-numeric Serum Health Serum or Plasma mmol/L results) System Carbon dioxide, 18.0 22.0 - Below low normal CO2, Serum [facility] total mmol/L 30.0 Health [Moles/volume] in mmol/L System Serum or Plasma Total Protein 9.4 6.3 - Above high Total Protein [facility] mg/dl 8.2 normal Health mg/dl System Glucose 373 65 - Above high Glucose, [facility] [Mass/volume] in mg/dL 105 normal Serum Health Serum or Plasma mg/dL System Urea nitrogen 37 7 - 18 Above high Blood Urea [facility] [Mass/volume] in mg/dl mg/dl normal Nitrogen, Health Serum or Plasma Serum System Creatinine 3.60 0.70 - Above high Creatinine, [facility] [Mass/volume] in mg/dl 1.20 normal Serum Health Serum or Plasma mg/dl System Alkaline 139 38 - Above high Alkaline [facility] phosphatase {IU/L} 126 normal Phosphatase, Health isoenzymes IU/L Serum System [Enzymatic activity/volume] in Serum or Plasma by Heat stability Bilirubin.total 0.5 0.2 - Normal (applies Bilirubin, [facility] [Mass/volume] in mg/dl 1.3 to non-numeric Serum Total Health Serum or Plasma mg/dl results) System Direct Bilirubin 0.3 0.0 - Normal (applies Direct [facility] mg/dl 0.4 to non-numeric Bilirubin Health mg/dl results) System Aspartate 41 5 - 40 Above high Aspartate [facility] aminotransferase {IU/L} IU/L normal Transaminase, Health [Enzymatic Serum System activity/volume] in Serum or Plasma by With P-5'-P Albumin 4.5 3.9 - Normal (applies Albumin, [facility] [Mass/volume] in {gm/dl} 5.0 to non-numeric Serum Health Serum or Plasma gm/dl results) System I. Phosphorus 5.9 2.5 - Above high I. Phosphorus [facility] mg/dl 4.5 normal Health mg/dl System Alanine 77 7 - 56 Above high Alanine [facility] aminotransferase {IU/L} IU/L normal Aminotransfer Health [Enzymatic ase, Serum System activity/volume] in Serum or Plasma Calcium 9.7 8.4 - Normal (applies Calcium, [facility] [Mass/volume] in mg/dl 10.2 to non-numeric Total Serum Health Serum or Plasma mg/dl results) System A/G Ratio 0.92 Normal (applies A/G Ratio [facility] to non-numeric Health results) System Urate 8.6 2.5 - Above high Uric Acid, [facility] [Mass/volume] in mg/dl 7.5 normal Serum Health Serum or Plasma mg/dl System Anion gap in Serum 13.00 8.00 - Above high Anion Gap [facility] or Plasma mmol/L 12.00 normal Health mmol/L System Glomerular 12.81 Normal (applies GFR [facility] filtration to non-numeric Health rate/1.73 sq results) System M.predicted [Volume Rate/Area] in Serum or Plasma by Creatinine-based formula (CKD-EPI) eGFR will provide clinicians with a more accurate indicator of renal function then the serum creatinine. The eGFR is automa tically calculated from an empiric formula (endorsed by the [employer]) which incorporates age, sex, and race.Clinicians may notice surprisingly low GFR's with serum creatinine valueswithin normal range- particularly in elderly wo men (with low muscle mass).In the hospital setting, the eGFR should add an element of safety in drug dosing, in assessing the risk of IV contrast administration, and in assessing vascular risk.The NKF staging system is as follows:Normal: eGFR >90 with no kidney markersStage 1: eGFR >90 with kidney markers*Stage 2: eGFR 60- 89Stage 3: eGFR 30-59Stage 4: eGFR 15-29Stage 5: eGFR <15 (usually requir ing dialysis)*Markers include: Proteinuria, Hematuria, abnormal imaging-studies, or other blood or urine test abnormalities ID Date Data Source [id number] 09/06/2016 03:11:00 PM EDT [facility] Name Value Range Interpretation Description Data Sup porting Code Source(s) Document(s ) Alcohol non Normal (applies Alcohol Ethyl, [facility] Ethyl, detected to non-numeric Blood Health System Blood None results) Detected ID Date Data Source [id number] 08/27/2015 02:01:00 PM EDT [facility] Name Value Range Interpretation Description Data Sup porting Code Source(s) Document(s ) Amphetamine Negative Negative Normal (applies Amphetamine [facility] [Mass/volume] ng/ml to non-numeric Level, Urine Health in Urine results) System Cut-off = 1000 ng/mL Barbiturates Negative Negative Normal (applies Barbiturate [facility] [Mass/volume] in ng/ml to non-numeric Screen, Urine [facility] Urine by Screen results) method Cut-off = 200 ng/mL Benzodiazepines Negative Negative Normal Benzodiazepines, [facility] [Mass/volume] in ng/mL (applies to Urine Health Urine non-numeric System results) Cut-off = 200 ng/mL Cocaine Negative Negative Normal (applies Cocaine [facility] metabolites.other ng/ml to non-numeric Metabol[facility] [Mass/volume] in results) Screen, Urine Urine Cut-off = 300 ng/mL Methadone Negative Negative Normal (applies Methadone [facility] [Mass/volume] in to non-numeric Level, Urine [facility] System Urine results) Cut-off = 300 ng/mL Opiate 300, Negative Negative ng/ml Normal (applies to Opiate 300, [facility] Urine non-numeric Urine [facility] System results) Cut-off = 300 ng/mL Phencyclidine Negative Negative Normal (applies Phencyclidine, [facility] [Mass/volume] in ng/ml to non-numeric Urine [facility] S yste Urine results) Cut-off = 25 ng/mL THC Negative Negative ng/mL Normal (applies to THC [facility] non-numeric results) Cutt-off = 50These results are for medic al treatment only. The positive findings are unconfirmed. Request confirmatory/quanti tative test if needed. ID Date Data Source [id number] 08/26/2015 06:00:00 AM EDT [facility] System Name Value Range Interpretation Description Data Sup porting Code Source(s) Document(s ) Leukocytes 4.8 4.8 - Normal (applies WBC Count [facility] [#/volume] in {10^3_uL 10.8 to non-numeric Health Unspecified } 10^3 uL results) System specimen by Automated count Erythrocytes 3.39 3.80 - Below low normal RBC Count [facility] [#/volume] in {10^6_uL 5.20 Health Blood by } 10^6 uL System Automated count Hemoglobin 10.1 12.0 - Below low normal Hemoglobin [facility] [Mass/volume] in {gm/dL} 16.0 Health Blood gm/dL System Hematocrit 29.3 % 36.0 - Below low normal Hematocrit [facility] [Volume 46.0 % Health Fraction] of System Blood Erythrocyte mean 86.4 fl 80.0 - Normal (applies MCV [facility] corpuscular 100.0 to non-numeric Health volume [Entitic fl results) System volume] by Automated count Erythrocyte mean 29.8 pg 26.0 - Normal (applies MCH [facility] corpuscular 34.0 pg to non-numeric Health hemoglobin results) System [Entitic mass] by Automated count Erythrocyte mean 34.5 33.0 - Normal (applies MCHC [facility] corpuscular {gm/dL} 37.0 to non-numeric Health hemoglobin gm/dL results) System concentration [Mass/volume] by Automated count Erythrocyte 15.1 % 11.5 - Above high RDW-CV [facility] distribution 14.5 % normal Health width [Entitic System volume] by Automated count Platelets 238 130 - Normal (applies Platelet [facility] [#/volume] in {10^3_uL 400 to non-numeric Count Health Plasma by } 10^3 uL results) System Automated count Platelet mean 10.5 fl 7.4 - Above high MPV [facility] volume [Entitic 10.4 fl normal Health volume] in Blood System by Automated count Monocytes 0.3 0.3 - Normal (applies Monocyte # [facility] [#/volume] in {10^3_uL 0.9 to non-numeric Health Blood by Manual } 10^3 uL results) System count Eosinophils 0.08 0.05 - Normal (applies Eosinophil # [facility] [#/volume] in {10^3_uL 0.30 to non-numeric Health Blood } 10^3 uL results) System Neutrophils 2.7 2.0 - Normal (applies Neutrophil # [facility] [#/volume] in {10^3_uL 8.1 to non-numeric Health Body fluid } 10^3 uL results) System Basophils 0.02 0.00 - Normal (applies Basophil # [facility] [#/volume] in {10^3_uL 0.10 to non-numeric Health Blood by } 10^3 uL results) System Automated count Lymphocyte # 1.7 1.0 - Normal (applies Lymphocyte # [facility] {10^3_uL 5.5 to non-numeric Health } 10^3 uL results) System Neutrophils/100 56.2 % 0.0 - Normal (applies Neutrophil % [facility] leukocytes in 120.0 % to non-numeric Health Blood by results) System Automated count Monocytes/100 6.7 % 6.0 - Normal (applies Monocyte % [facility] leukocytes in 9.0 % to non-numeric Health Blood results) System Eosinophils/100 1.7 % 1.0 - Normal (applies Eosinophil % [facility] leukocytes in 3.0 % to non-numeric Health Unspecified results) System specimen Basophils/100 0.4 % 0.0 - Normal (applies Basophil % [facility] leukocytes in 1.0 % to non-numeric Health Unspecified results) System specimen by Manual count Lymphocytes 35.0 % 21.0 - Normal (applies Lymphocyte % [facility] [#/volume] in 51.0 % to non-numeric Health Blood by results) System Automated count ID Date Data Source [id number] 08/26/2015 06:00:00 AM EDT [facility] System Name Value Range Interpretation Description Data Sup porting Code Source(s) Document(s ) Sodium 135 137 - Below low normal Sodium, Serum [facility] [Moles/volum mmol/L 145 [facility] System e] in Serum mmol/L or Plasma Potassium 4.6 3.6 - Normal (applies Potassium, [facility] [Mass/volume mmol/L 5.0 to non-numeric Serum Health Syste m ] in Serum mmol/L results) or Plasma Chloride 102 98 - 107 Normal (applies Chloride, [facility] [Moles/volum mmol/L mmol/L to non-numeric Serum Health Syste m e] in Serum results) or Plasma Carbon 24.0 22.0 - Normal (applies CO2, Serum [facility] dioxide, mmol/L 30.0 to non-numeric Health System total mmol/L results) [Moles/volum e] in Serum or Plasma Glucose 268 65 - 105 Above high normal Glucose, Serum [facility] [Mass/volume mg/dL mg/dL Health System ] in Serum or Plasma OK Urea nitrogen 29 mg/dl 7 - 18 Above high Blood Urea [facility] [Mass/volume] in mg/dl normal Nitrogen, Serum Health System Serum or Plasma Creatinine 1.50 mg/dl 0.70 - 1.20 Above high Creatinine, [facility] [Mass/volume] in mg/dl normal Serum Health System Serum or Plasma Calcium 9.3 mg/dl 8.4 - 10.2 Normal Calcium, Total [facility] [Mass/volume] in mg/dl (applies to Serum Health Syst em Serum or Plasma non-numeric results) Anion gap in Serum 9.00 mmol/L 8.00 - Normal Anion Gap [facility] or Plasma 12.00 (applies to Health System mmol/L non-numeric results) ID Date Data Source [id number] 08/25/2015 09:29:21 AM EDT [facility] System Name Value Range Interpretation Description Data Sup porting Code Source(s) Document(s ) Sodium 135 137 - Below low normal Sodium, Serum [facility] [Moles/volume] in mmol/L 145 Health Serum or Plasma mmol/L System Potassium 4.6 3.6 - Normal (applies Potassium, [facility] [Mass/volume] in mmol/L 5.0 to non-numeric Serum Health Serum or Plasma mmol/L results) System Chloride 101 98 - Normal (applies Chloride, [facility] [Moles/volume] in mmol/L 107 to non-numeric Serum Health Serum or Plasma mmol/L results) System Carbon dioxide, 26.0 22.0 - Normal (applies CO2, Serum [facility] total mmol/L 30.0 to non-numeric Health [Moles/volume] in mmol/L results) System Serum or Plasma Total Protein 7.3 6.3 - Normal (applies Total Protein [facility] mg/dl 8.2 to non-numeric Health mg/dl results) System Glucose 398 65 - Above high Glucose, [facility] [Mass/volume] in mg/dL 105 normal Serum Health Serum or Plasma mg/dL System Urea nitrogen 23 7 - 18 Above high Blood Urea [facility] [Mass/volume] in mg/dl mg/dl normal Nitrogen, Health Serum or Plasma Serum System Creatinine 1.70 0.70 - Above high Creatinine, [facility] [Mass/volume] in mg/dl 1.20 normal Serum Health Serum or Plasma mg/dl System Alkaline 114 38 - Normal (applies Alkaline [facility] phosphatase {IU/L} 126 to non-numeric Phosphatase, Health isoenzymes IU/L results) Serum System [Enzymatic activity/volume] in Serum or Plasma by Heat stability Bilirubin.total 0.3 0.2 - Normal (applies Bilirubin, [facility] [Mass/volume] in mg/dl 1.3 to non-numeric Serum Total Health Serum or Plasma mg/dl results) System Direct Bilirubin 0.1 0.0 - Normal (applies Direct [facility] mg/dl 0.4 to non-numeric Bilirubin [facility] mg/dl results) System Aspartate 33 5 - 40 Normal (applies Aspartate [facility] aminotransferase {IU/L} IU/L to non-numeric Transaminase, Heal th [Enzymatic results) Serum System activity/volume] in Serum or Plasma by With P-5'-P Albumin 3.7 3.9 - Below low normal Albumin, [facility] [Mass/volume] in {gm/dl} 5.0 Serum Health Serum or Plasma gm/dl System I. Phosphorus 4.7 2.5 - Above high I. Phosphorus [facility] mg/dl 4.5 normal Health mg/dl System Alanine 43 7 - 56 Normal (applies Alanine [facility] aminotransferase {IU/L} IU/L to non-numeric Aminotransfer Heal th [Enzymatic results) ase, Serum System activity/volume] in Serum or Plasma Calcium 9.5 8.4 - Normal (applies Calcium, [facility] [Mass/volume] in mg/dl 10.2 to non-numeric Total Serum Health Serum or Plasma mg/dl results) System A/G Ratio 1.03 Normal (applies A/G Ratio [facility] to non-numeric Health results) System Urate 5.0 2.5 - Normal (applies Uric Acid, [facility] [Mass/volume] in mg/dl 7.5 to non-numeric Serum Health Serum or Plasma mg/dl results) System Anion gap in Serum 8.00 8.00 - Normal (applies Anion Gap [facility] or Plasma mmol/L 12.00 to non-numeric Health mmol/L results) System Glomerular 30.56 Normal (applies GFR [facility] filtration to non-numeric Health rate/1.73 sq results) System M.predicted [Volume Rate/Area] in Serum or Plasma by Creatinine-based formula (CKD-EPI) eGFR will provide clinicians with a more accurate indicator of renal function then the serum creatinine. The eGFR is automa tically calculated from an empiric formula (endorsed by the [employer] ion) which incorporates age, sex, and race.Clinicians may notice surprisingly low GFR's with serum creatinine valueswithin normal range- particularly in elderly wo men (with low muscle mass).In the hospital setting, the eGFR should add an element of safety in drug dosing, in assessing the risk of IV contrast administration, and in assessing vascular risk.The NKF staging system is as follows:Normal: eGFR >90 with no kidney markersStage 1: eGFR >90 with kidney markers*Stage 2: eGFR 60- 89Stage 3: eGFR 30-59Stage 4: eGFR 15-29Stage 5: eGFR <15 (usually requir ing dialysis)*Markers include: Proteinuria, Hematuria, abnormal imaging-studies, or other blood or urine test abnormalities ID Date Data Source [id number] 08/25/2015 06:00:00 AM EDT [facility] System Name Value Range Interpretation Description Data Sup porting Code Source(s) Document(s ) Leukocytes 4.5 4.8 - Below low normal WBC Count [facility] [#/volume] in {10^3_uL 10.8 Health Unspecified } 10^3 uL System specimen by Automated count Erythrocytes 3.56 3.80 - Below low normal RBC Count [facility] [#/volume] in {10^6_uL 5.20 Health Blood by } 10^6 uL System Automated count Hemoglobin 10.4 12.0 - Below low normal Hemoglobin [facility] [Mass/volume] in {gm/dL} 16.0 Health Blood gm/dL System Hematocrit 31.0 % 36.0 - Below low normal Hematocrit [facility] [Volume 46.0 % Health Fraction] of System Blood Erythrocyte mean 87.1 fl 80.0 - Normal (applies MCV [facility] corpuscular 100.0 to non-numeric Health volume [Entitic fl results) System volume] by Automated count Erythrocyte mean 29.2 pg 26.0 - Normal (applies MCH [facility] corpuscular 34.0 pg to non-numeric Health hemoglobin results) System [Entitic mass] by Automated count Erythrocyte mean 33.5 33.0 - Normal (applies MCHC [facility] corpuscular {gm/dL} 37.0 to non-numeric Health hemoglobin gm/dL results) System concentration [Mass/volume] by Automated count Erythrocyte 15.1 % 11.5 - Above high RDW-CV [facility] distribution 14.5 % normal Health width [Entitic System volume] by Automated count Platelets 239 130 - Normal (applies Platelet [facility] [#/volume] in {10^3_uL 400 to non-numeric Count Health Plasma by } 10^3 uL results) System Automated count Platelet mean 11.0 fl 7.4 - Above high MPV [facility] volume [Entitic 10.4 fl normal Health volume] in Blood System by Automated count Monocytes 0.3 0.3 - Below low normal Monocyte # [facility] [#/volume] in {10^3_uL 0.9 Health Blood by Manual } 10^3 uL System count Eosinophils 0.06 0.05 - Normal (applies Eosinophil # [facility] [#/volume] in {10^3_uL 0.30 to non-numeric Health Blood } 10^3 uL results) System Neutrophils 2.7 2.0 - Normal (applies Neutrophil # [facility] [#/volume] in {10^3_uL 8.1 to non-numeric Health Body fluid } 10^3 uL results) System Basophils 0.01 0.00 - Normal (applies Basophil # [facility] [#/volume] in {10^3_uL 0.10 to non-numeric Health Blood by } 10^3 uL results) System Automated count Lymphocyte # 1.4 1.0 - Normal (applies Lymphocyte # [facility] {10^3_uL 5.5 to non-numeric Health } 10^3 uL results) System Neutrophils/100 60.1 % 0.0 - Normal (applies Neutrophil % [facility] leukocytes in 120.0 % to non-numeric Health Blood by results) System Automated count Monocytes/100 6.3 % 6.0 - Normal (applies Monocyte % [facility] leukocytes in 9.0 % to non-numeric Health Blood results) System Eosinophils/100 1.3 % 1.0 - Normal (applies Eosinophil % [facility] leukocytes in 3.0 % to non-numeric Health Unspecified results) System specimen Basophils/100 0.2 % 0.0 - Normal (applies Basophil % [facility] leukocytes in 1.0 % to non-numeric Health Unspecified results) System specimen by Manual count Lymphocytes 32.1 % 21.0 - Normal (applies Lymphocyte % [facility] [#/volume] in 51.0 % to non-numeric Health Blood by results) System Automated count ID Date Data Source [id number] 08/25/2015 06:00:00 AM EDT [facility] Name Value Range Interpretation Description Data Sup porting Code Source(s) Document(s ) Iron 104 ug/dL 35 - 140 Normal (applies to Iron, Serum [facility] [Mass/volu ug/dL non-numeric Health System me] in results) Serum or Plasma ID Date Data Source [id number] 08/25/2015 06:00:00 AM EDT [facility] Name Value Range Interpretation Description Data Sup porting Code Source(s) Document(s ) Iron/Iron 283.00 250 - Normal (applies Total Iron [facility] binding ug/dL 450 to non-numeric Binding Health System capacity.to ug/dL results) Capacity-(RO) [facility] [Mass Ratio] in Serum or Plasma UNITS: mcg/dL (calc) % Saturation 35.00 % 11 - 50 % Normal (applies to % Saturation [facility] non-numeric results) System Test Performed at:[facility] [place], [place] [address]Alvaro [place] M.D. Iron. 100 ug/dL 45 - 160 ug/dL Normal (applies to Iron. [facility] non-numeric results) System ID Date Data Source [id number] 08/25/2015 06:00:00 AM EDT [facility] Name Value Range Interpretation Description Data Sup porting Code Source(s) Document(s ) Ferritin 311.4 14.0 - Above high normal Ferritin, [facility] [Mass/volum ng/ml 235.0 Serum Health System e] in Serum ng/ml or Plasma ID Date Data Source [id number] 08/24/2015 06:00:00 AM EDT [facility] Name Value Range Interpretation Description Data Sup porting Code Source(s) Document(s ) aPTT in Blood 34.7 23.9 - Above high Activated [facility] by {Second 30.6 normal Partial Health Coagulation s} Seconds Thromboplastin System assay Time ID Date Data Source [id number] 08/24/2015 06:00:00 AM EDT [facility] Name Value Range Interpretation Description Data Sup porting Code Source(s) Document(s ) Prothrombin 9.70 9.70 - Normal (applies Prothrombin [facility] time (PT) {seconds 11.80 to non-numeric time (PT) Health } seconds results) System INR in Blood 0.96 0.70 - Normal (applies INR Result [facility] by Coagulation {Ratio} 1.10 to non-numeric Health assay Ratio results) System Normal = 0.7-1.1Therapeutic = 2.0-3.0Mec hanical Heart = 3.0-4.5 ID Date Data Source [id number] 08/24/2015 06:00:00 AM EDT [facility] Name Value Range Interpretation Description Data Sup porting Code Source(s) Document(s ) Leukocytes 5.1 4.8 - Normal (applies WBC Count [facility] [#/volume] in {10^3_uL 10.8 to non-numeric Health Unspecified } 10^3 uL results) System specimen by Automated count Erythrocytes 3.25 3.80 - Below low normal RBC Count [facility] [#/volume] in {10^6_uL 5.20 Health Blood by } 10^6 uL System Automated count Hemoglobin 9.8 12.0 - Below low normal Hemoglobin [facility] [Mass/volume] in {gm/dL} 16.0 Health Blood gm/dL System Hematocrit 27.5 % 36.0 - Below low normal Hematocrit [facility] [Volume 46.0 % Health Fraction] of System Blood Erythrocyte mean 84.6 fl 80.0 - Normal (applies MCV [facility] corpuscular 100.0 to non-numeric Health volume [Entitic fl results) System volume] by Automated count Erythrocyte mean 30.2 pg 26.0 - Normal (applies MCH [facility] corpuscular 34.0 pg to non-numeric Health hemoglobin results) System [Entitic mass] by Automated count Erythrocyte mean 35.6 33.0 - Normal (applies MCHC [facility] corpuscular {gm/dL} 37.0 to non-numeric Health hemoglobin gm/dL results) System concentration [Mass/volume] by Automated count Erythrocyte 14.6 % 11.5 - Above high RDW-CV [facility] distribution 14.5 % normal Health width [Entitic System volume] by Automated count Platelets 222 130 - Normal (applies Platelet [facility] [#/volume] in {10^3_uL 400 to non-numeric Count Health Plasma by } 10^3 uL results) System Automated count Platelet mean 11.0 fl 7.4 - Above high MPV [facility] volume [Entitic 10.4 fl normal Health volume] in Blood System by Automated count Monocytes 0.3 0.3 - Normal (applies Monocyte # [facility] [#/volume] in {10^3_uL 0.9 to non-numeric Health Blood by Manual } 10^3 uL results) System count Eosinophils 0.05 0.05 - Normal (applies Eosinophil # [facility] [#/volume] in {10^3_uL 0.30 to non-numeric Health Blood } 10^3 uL results) System Neutrophils 3.2 2.0 - Normal (applies Neutrophil # [facility] [#/volume] in {10^3_uL 8.1 to non-numeric Health Body fluid } 10^3 uL results) System Basophils 0.00 0.00 - Normal (applies Basophil # [facility] [#/volume] in {10^3_uL 0.10 to non-numeric Health Blood by } 10^3 uL results) System Automated count Lymphocyte # 1.6 1.0 - Normal (applies Lymphocyte # [facility] {10^3_uL 5.5 to non-numeric Health } 10^3 uL results) System Neutrophils/100 61.8 % 0.0 - Normal (applies Neutrophil % [facility] leukocytes in 120.0 % to non-numeric Health Blood by results) System Automated count Monocytes/100 5.8 % 6.0 - Below low normal Monocyte % [facility] leukocytes in 9.0 % Health Blood System Eosinophils/100 1.0 % 1.0 - Normal (applies Eosinophil % [facility] leukocytes in 3.0 % to non-numeric Health Unspecified results) System specimen Basophils/100 0.0 % 0.0 - Normal (applies Basophil % [facility] leukocytes in 1.0 % to non-numeric Health Unspecified results) System specimen by Manual count Lymphocytes 31.4 % 21.0 - Normal (applies Lymphocyte % [facility] [#/volume] in 51.0 % to non-numeric Health Blood by results) System Automated count ID Date Data Source [id number] 08/24/2015 06:00:00 AM EDT [facility] Name Value Range Interpretation Description Data Sup porting Code Source(s) Document(s ) Sodium 136 137 - Below low normal Sodium, Serum [facility] [Moles/volume] in mmol/L 145 Health Serum or Plasma mmol/L System Potassium 4.3 3.6 - Normal (applies Potassium, [facility] [Mass/volume] in mmol/L 5.0 to non-numeric Serum Health Serum or Plasma mmol/L results) System Chloride 104 98 - Normal (applies Chloride, [facility] [Moles/volume] in mmol/L 107 to non-numeric Serum Health Serum or Plasma mmol/L results) System Carbon dioxide, 22.0 22.0 - Normal (applies CO2, Serum [facility] total mmol/L 30.0 to non-numeric Health [Moles/volume] in mmol/L results) System Serum or Plasma Total Protein 6.9 6.3 - Normal (applies Total Protein [facility] mg/dl 8.2 to non-numeric Health mg/dl results) System Glucose 303 65 - Above high Glucose, [facility] [Mass/volume] in mg/dL 105 normal Serum Health Serum or Plasma mg/dL System Urea nitrogen 20 7 - 18 Above high Blood Urea [facility] [Mass/volume] in mg/dl mg/dl normal Nitrogen, Health Serum or Plasma Serum System Creatinine 1.50 0.70 - Above high Creatinine, [facility] [Mass/volume] in mg/dl 1.20 normal Serum Health Serum or Plasma mg/dl System Alkaline 113 38 - Normal (applies Alkaline [facility] phosphatase {IU/L} 126 to non-numeric Phosphatase, Health isoenzymes IU/L results) Serum System [Enzymatic activity/volume] in Serum or Plasma by Heat stability Bilirubin.total 0.2 0.2 - Normal (applies Bilirubin, [facility] [Mass/volume] in mg/dl 1.3 to non-numeric Serum Total Health Serum or Plasma mg/dl results) System Direct Bilirubin 0.1 0.0 - Normal (applies Direct [facility] mg/dl 0.4 to non-numeric Bilirubin Health mg/dl results) System Aspartate 39 5 - 40 Normal (applies Aspartate [facility] aminotransferase {IU/L} IU/L to non-numeric Transaminase, Heal th [Enzymatic results) Serum System activity/volume] in Serum or Plasma by With P-5'-P Albumin 3.5 3.9 - Below low normal Albumin, [facility] [Mass/volume] in {gm/dl} 5.0 Serum Health Serum or Plasma gm/dl System I. Phosphorus 4.1 2.5 - Normal (applies I. Phosphorus [facility] mg/dl 4.5 to non-numeric Health mg/dl results) System Alanine 49 7 - 56 Normal (applies Alanine [facility] aminotransferase {IU/L} IU/L to non-numeric Aminotransfer Heal th [Enzymatic results) ase, Serum System activity/volume] in Serum or Plasma Calcium 9.3 8.4 - Normal (applies Calcium, [facility] [Mass/volume] in mg/dl 10.2 to non-numeric Total Serum Health Serum or Plasma mg/dl results) System A/G Ratio 1.03 Normal (applies A/G Ratio [facility] to non-numeric Health results) System Urate 5.0 2.5 - Normal (applies Uric Acid, [facility] [Mass/volume] in mg/dl 7.5 to non-numeric Serum Health Serum or Plasma mg/dl results) System Anion gap in Serum 10.00 8.00 - Normal (applies Anion Gap [facility] or Plasma mmol/L 12.00 to non-numeric Health mmol/L results) System Glomerular 35.31 Normal (applies GFR [facility] filtration to non-numeric Health rate/1.73 sq results) System M.predicted [Volume Rate/Area] in Serum or Plasma by Creatinine-based formula (CKD-EPI) eGFR will provide clinicians with a more accurate indicator of renal function then the serum creatinine. The eGFR is automa tically calculated from an empiric formula (endorsed by the [employer] ion) which incorporates age, sex, and race.Clinicians may notice surprisingly low GFR's with serum creatinine valueswithin normal range- particularly in elderly wo men (with low muscle mass).In the hospital setting, the eGFR should add an element of safety in drug dosing, in assessing the risk of IV contrast administration, and in assessing vascular risk.The NKF staging system is as follows:Normal: eGFR >90 with no kidney markersStage 1: eGFR >90 with kidney markers*Stage 2: eGFR 60- 89Stage 3: eGFR 30-59Stage 4: eGFR 15-29Stage 5: eGFR <15 (usually requir ing dialysis)*Markers include: Proteinuria, Hematuria, abnormal imaging-studies, or other blood or urine test abnormalities ID Date Data Source [id number] 08/22/2015 05:06:00 AM EDT [facility] Name Value Range Interpretation Description Data Sup porting Code Source(s) Document(s ) Bacteria NO GROWTH Culture [facility] identified in Bacteria Blood [facility] Blood by [facility] culture ID Date Data Source [id number] 08/22/2015 05:06:00 AM EDT [facility] Name Value Range Interpretation Description Data Sup porting Code Source(s) Document(s ) Bacteria NO GROWTH Culture [facility] identified in Bacteria Blood [facility] Blood by Aer[facility] culture ID Date Data Source [id number] 08/22/2015 02:58:00 AM EDT [facility] Name Value Range Interpretation Description Data Sup porting Code Source(s) Document(s ) Sodium 131 137 - Below low normal Sodium, Serum [facility] [Moles/volume] in mmol/L 145 Health Serum or Plasma mmol/L System Potassium 4.1 3.6 - Normal (applies Potassium, [facility] [Mass/volume] in mmol/L 5.0 to non-numeric Serum Health Serum or Plasma mmol/L results) System Chloride 98 98 - Normal (applies Chloride, [facility] [Moles/volume] in mmol/L 107 to non-numeric Serum Health Serum or Plasma mmol/L results) System Carbon dioxide, 21.0 22.0 - Below low normal CO2, Serum [facility] total mmol/L 30.0 Health [Moles/volume] in mmol/L System Serum or Plasma Total Protein 7.9 6.3 - Normal (applies Total Protein [facility] mg/dl 8.2 to non-numeric Health mg/dl results) System Glucose 477 65 - Above high Glucose, [facility] [Mass/volume] in mg/dL 105 normal Serum Health Serum or Plasma mg/dL System Urea nitrogen 25 7 - 18 Above high Blood Urea [facility] [Mass/volume] in mg/dl mg/dl normal Nitrogen, Health Serum or Plasma Serum System Creatinine 2.10 0.70 - Above high Creatinine, [facility] [Mass/volume] in mg/dl 1.20 normal Serum Health Serum or Plasma mg/dl System Alkaline 160 38 - Above high Alkaline [facility] phosphatase {IU/L} 126 normal Phosphatase, Health isoenzymes IU/L Serum System [Enzymatic activity/volume] in Serum or Plasma by Heat stability Bilirubin.total 0.3 0.2 - Normal (applies Bilirubin, [facility] [Mass/volume] in mg/dl 1.3 to non-numeric Serum Total Health Serum or Plasma mg/dl results) System Direct Bilirubin 0.2 0.0 - Normal (applies Direct [facility] mg/dl 0.4 to non-numeric Bilirubin [facility] mg/dl results) System Aspartate 104 5 - 40 Above high Aspartate [facility] aminotransferase {IU/L} IU/L normal Transaminase, Health [Enzymatic Serum System activity/volume] in Serum or Plasma by With P-5'-P Albumin 3.9 3.9 - Normal (applies Albumin, [facility] [Mass/volume] in {gm/dl} 5.0 to non-numeric Serum Health Serum or Plasma gm/dl results) System I. Phosphorus 4.6 2.5 - Above high I. Phosphorus [facility] mg/dl 4.5 normal Health mg/dl System Alanine 89 7 - 56 Above high Alanine [facility] aminotransferase {IU/L} IU/L normal Aminotransfer Health [Enzymatic ase, Serum System activity/volume] in Serum or Plasma Calcium 8.9 8.4 - Normal (applies Calcium, [facility] [Mass/volume] in mg/dl 10.2 to non-numeric Total Serum Health Serum or Plasma mg/dl results) System A/G Ratio 0.98 Normal (applies A/G Ratio [facility] to non-numeric Health results) System Urate 6.2 2.5 - Normal (applies Uric Acid, [facility] [Mass/volume] in mg/dl 7.5 to non-numeric Serum Health Serum or Plasma mg/dl results) System Anion gap in Serum 12.00 8.00 - Normal (applies Anion Gap [facility] or Plasma mmol/L 12.00 to non-numeric Health mmol/L results) System Glomerular 23.95 Normal (applies GFR [facility] filtration to non-numeric Health rate/1.73 sq results) System M.predicted [Volume Rate/Area] in Serum or Plasma by Creatinine-based formula (CKD-EPI) eGFR will provide clinicians with a more accurate indicator of renal function then the serum creatinine. The eGFR is automa tically calculated from an empiric formula (endorsed by the [employer] ion) which incorporates age, sex, and race.Clinicians may notice surprisingly low GFR's with serum creatinine valueswithin normal range- particularly in elderly wo men (with low muscle mass).In the hospital setting, the eGFR should add an element of safety in drug dosing, in assessing the risk of IV contrast administration, and in assessing vascular risk.The NKF staging system is as follows:Normal: eGFR >90 with no kidney markersStage 1: eGFR >90 with kidney markers*Stage 2: eGFR 60- 89Stage 3: eGFR 30-59Stage 4: eGFR 15-29Stage 5: eGFR <15 (usually requir ing dialysis)*Markers include: Proteinuria, Hematuria, abnormal imaging-studies, or other blood or urine test abnormalities ID Date Data Source [id number] 08/22/2015 02:58:00 AM EDT [facility] Name Value Range Interpretation Description Data Sup porting Code Source(s) Document(s ) Lactic 1.75 0.70 - Normal (applies Lactic Acid, [facility] Acid, {mEq/L} 2.10 to non-numeric Plasma *[facility] Syst em Plasma mEq/L results) KI ONLY* *[facility] KI ONLY* ID Date Data Source [id number] 08/22/2015 01:00:00 AM EDS[facility]astian [facility] System Name Value Range Interpretation Description Data Sup porting Code Source(s) Document(s ) pH 7.381 7.380 - Normal (applies pH [facility] {pH_unit 7.460 pH to non-numeric Health s} units results) System Carbon dioxide 40.1 32.0 - Normal (applies pCO2, [facility] [Partial {mm_Hg} 46.0 mm to non-numeric Arterial Health pressure] in Hg results) System Arterial blood Oxygen 89.9 74.0 - Normal (applies pO2, Aterial [facility] [Partial {mm_Hg} 108.0 mm to non-numeric Health pressure] in Hg results) System Arterial blood Base Excess. -1.7 -3.0 - Normal (applies Base Excess. [facility] mmol/L 3.0 to non-numeric Health mmol/L results) System Bicarbonate 23.2 20.0 - Normal (applies HCO3 [facility] [Moles/volume] mmol/L 26.0 to non-numeric Health in Venous mmol/L results) System blood TCO2 24.5 24.0 - Normal (applies TCO2 [facility] mmol/L 30.0 to non-numeric Health mmol/L results) System O2 Saturation 96.2 % 92.0 - Above high normal O2 Saturation [facility] 96.0 % Health System Sodium, WB 131 Normal (applies Sodium, WB [facility] mmol/L to non-numeric Health results) System Potassium, WB 3.9 Normal (applies Potassium, WB [facility] mmol/L to non-numeric Health results) System Chloride, WB 94 Normal (applies Chloride, WB [facility] mmol/L to non-numeric Health results) System Glucose, WB 501 Normal (applies Glucose, WB [facility] mg/dL to non-numeric Health results) System Ionized 1.17 Normal (applies Ionized [facility] Calcium mmol/L to non-numeric Calcium Health results) System ID Date Data Source [id number] 08/21/2015 07:16:00 PM EDT [facility] Name Value Range Interpretation Description Data Sup porting Code Source(s) Document(s ) Lactic 3.90 0.70 - Above high normal Lactic Acid, [facility] Acid, {mEq/L} 2.10 Plasma *[facility] Plasma mEq/L [facility] ONLY* *[facility] KI ONLY* ID Date Data Source [id number] 08/21/2015 07:16:00 PM EDT [facility] Name Value Range Interpretation Description Data Sup porting Code Source(s) Document(s ) Acetone, Negative Negative Normal (applies Acetone, [facility] Serum to non-numeric Serum Health Qualitative results) Qualitative System ID Date Data Source [id number] 08/21/2015 06:51:00 PM EDT [facility] Name Value Range Interpretation Description Data Sup porting Code Source(s) Document(s ) Deprecated Micro Result Normal (applies Aerobic [facility] Bacteria Final Culture to non-numeric Culture, Health identified Reading results) Urine System in Urine by Note::"MULTIPL [facility] E BACTERIAL culture MORPHOTYPES PRESENT, POSSIBLE CONTAMINATION, SUGGEST RECOLLECTION IF CLINICALLY INDICATED". ID Date Data Source [id number] 08/21/2015 06:51:00 PM EDT [facility] System Name Value Range Interpretation Description Data Sup porting Code Source(s) Document(s ) Color YELLOW Yellow Normal (applies Color [facility] to non-numeric Health results) System Appearance of SL.CLOUDY Clear Normal (applies Urine [facility] Urine to non-numeric Appearance Health results) System Specific 1.010 Normal (applies Urine Specific [facility] gravity of to non-numeric [facility] Urine results) System pH.. 5.5 4.6 - 8.0 Normal (applies pH.. [facility] {pH_units} pH units to non-numeric Health results) System Glucose, UA > =1000 < 50 Normal (applies Glucose, UA [facility] mg/dl to non-numeric Health results) System Protein 30 mg/dl < 30 Normal (applies Protein [facility] [Mass/volume] mg/dl to non-numeric Health in Serum or results) System Plasma Bilirubin NEGATIVE Negative Normal (applies Bilirubin [facility] Urine Sm to Lg to non-numeric Urine Health results) System Urobilinogen 0.2 mg/dL Normal (applies Urobilinogen [facility] [Mass/volume] to non-numeric UA Health in Urine results) System Ketones NEGATIVE Negative Normal (applies Ketones UA [facility] [Mass/volume] Tr to Lg to non-numeric Health in Urine results) System Nitrate+Nitrit NEGATIVE Negative Normal (applies Nitrite [facility] Neg/Pos to non-numeric Health [Mass/volume] results) System in Unspecified specimen Leukocyte SMALL Negative Abnormal Leukocyte [facility] esterase Tr to Lg (applies to Esterase Health [Units/volume] non-numeric Concentration System in Urine results) Leukocytes 8-12 0 - 2 Normal (applies White Blood [facility] [#/volume] in /HPF to non-numeric Cells Health Unspecified results) System specimen by Automated count Red Blood 1-3 0 - 1 Normal (applies Red Blood [facility] Cells /HPF to non-numeric Cells Health results) System Epithelial 3-5 0 - 3 Normal (applies Epithelial [facility] cells /HPF to non-numeric Cells [facility] [Presence] in results) System Unspecified specimen by Wet preparation Bacteria LARGE 0 - 5 Normal (applies Bacteria [facility] [Presence] in /HPF to non-numeric Health Unspecified results) System specimen Yeast 2-4 0 /HPF Normal (applies Yeast-Budding [facility] [Presence] in to non-numeric Health Unspecified results) System specimen by Organism specific culture Urine Blood TRACE-LYSE Normal (applies Urine Blood [facility] D to non-numeric Health results) System ID Date Data Source [id number] 08/21/2015 06:51:00 PM EDT [facility] Name Value Range Interpretation Description Data Sup porting Code Source(s) Document(s ) Leukocytes 5.4 4.8 - Normal (applies WBC Count [facility] [#/volume] in {10^3_uL 10.8 to non-numeric Health Unspecified } 10^3 uL results) System specimen by Automated count Erythrocytes 3.51 3.80 - Below low normal RBC Count [facility] [#/volume] in {10^6_uL 5.20 Health Blood by } 10^6 uL System Automated count Hemoglobin 10.5 12.0 - Below low normal Hemoglobin [facility] [Mass/volume] in {gm/dL} 16.0 Health Blood gm/dL System Hematocrit 30.3 % 36.0 - Below low normal Hematocrit [facility] [Volume 46.0 % Health Fraction] of System Blood Erythrocyte mean 86.3 fl 80.0 - Normal (applies MCV [facility] corpuscular 100.0 to non-numeric Health volume [Entitic fl results) System volume] by Automated count Erythrocyte mean 29.9 pg 26.0 - Normal (applies MCH [facility] corpuscular 34.0 pg to non-numeric Health hemoglobin results) System [Entitic mass] by Automated count Erythrocyte mean 34.7 33.0 - Normal (applies MCHC [facility] corpuscular {gm/dL} 37.0 to non-numeric Health hemoglobin gm/dL results) System concentration [Mass/volume] by Automated count Erythrocyte 14.2 % 11.5 - Normal (applies RDW-CV [facility] distribution 14.5 % to non-numeric Health width [Entitic results) System volume] by Automated count Platelets 214 130 - Normal (applies Platelet [facility] [#/volume] in {10^3_uL 400 to non-numeric Count Health Plasma by } 10^3 uL results) System Automated count Platelet mean 11.3 fl 7.4 - Above high MPV [facility] volume [Entitic 10.4 fl normal Health volume] in Blood System by Automated count ID Date Data Source [id number] 08/21/2015 06:51:00 PM EDT [facility] Name Value Range Interpretation Description Data Sup porting Code Source(s) Document(s ) Sodium 123 137 - Below lower panic Sodium, Serum [facility] [Moles/vol mmol/L 145 limits Health System ume] in mmol/L Serum or Plasma Result Reporting|Telephone|call & read b ack to [facility]| 08/21/2015 at 11:14 PMCalled to:Tech Name:Readback by: 08/21/2015 / 11 :14 PM Potassium 5.9 mmol/L 3.6 - 5.0 Above high Potassium, [facility] [Mass/volume] in mmol/L normal Serum Health System Serum or Plasma Chloride 86 mmol/L 98 - 107 Below low Chloride, Serum [facility] [Moles/volume] in mmol/L normal Health Syste m Serum or Plasma Carbon dioxide, 19.0 mmol/L 22.0 - 30.0 Below low CO2, Serum [facility] total mmol/L normal Health System [Moles/volume] in Serum or Plasma Total Protein 10.0 mg/dl 6.3 - 8.2 Above high Total Protein [facility] mg/dl normal Health System Glucose 784 mg/dL 65 - 105 Above upper Glucose, Serum [facility] [Mass/volume] in mg/dL panic Health System Serum or Plasma limits Result Reporting|Telephone|call & read b ack to [facility]| 08/21/2015 at 11:13 PMCalled to:Tech Name:Readback by: 08/21/2015 / 11 :13 PMResult Reporting|Telephone|call & read back to [facility]| 08/21/2015 at 11:14 PM Called to:Tech Name:Readback by: 08/21/2015 / 11:14 PM Urea nitrogen 26 mg/dl 7 - 18 Above high Blood Urea [facility] [Mass/volume] in Serum mg/dl normal Nitrogen, Serum H ealth System or Plasma Creatinine 2.58 mg/dl 0.70 - Above high Creatinine, [facility] [Mass/volume] in Serum 1.20 mg/dl normal Serum Health System or Plasma Alkaline phosphatase 186 {IU/L} 38 - 126 Above high Alkaline [facility] isoenzymes [Enzymatic IU/L normal Phosphatase, Healt h System activity/volume] in Serum Serum or Plasma by Heat stability Bilirubin.total 0.4 mg/dl 0.2 - 1.3 Normal Bilirubin, [facility] [Mass/volume] in Serum mg/dl (applies to Serum Total Hea lth System or Plasma non-numeric results) Direct Bilirubin 0.1 mg/dl 0.0 - 0.4 Normal Direct [facility] mg/dl (applies to Bilirubin Health System non-numeric results) Aspartate 126 {IU/L} 5 - 40 Above high Aspartate [facility] aminotransferase IU/L normal Transaminase, Health Sy stem [Enzymatic Serum activity/volume] in Serum or Plasma by With P-5'-P Albumin [Mass/volume] 4.6 3.9 - 5.0 Normal Albumin, Serum [facility] in Serum or Plasma {gm/dl} gm/dl (applies to Health Sy stem non-numeric results) I. Phosphorus 4.2 mg/dl 2.5 - 4.5 Normal I. Phosphorus [facility] mg/dl (applies to Health System non-numeric results) Alanine 113 {IU/L} 7 - 56 Above high Alanine [facility] aminotransferase IU/L normal Aminotransferas [facility] [Enzymatic e, Serum activity/volume] in Serum or Plasma Calcium [Mass/volume] 9.4 mg/dl 8.4 - 10.2 Normal Calcium, Total [facility] in Serum or Plasma mg/dl (applies to Serum Health Sy stem non-numeric results) A/G Ratio 0.85 Normal A/G Ratio [facility] (applies to Health System non-numeric results) Urate [Mass/volume] in 6.9 mg/dl 2.5 - 7.5 Normal Uric Acid, [facility] Serum or Plasma mg/dl (applies to Serum Health Syste m non-numeric results) Anion gap in Serum or 18.00 8.00 - Above high Anion Gap [facility] Plasma mmol/L 12.00 normal Health System mmol/L Glomerular filtration 18.89 Normal GFR [facility] rate/1.73 sq (applies to Health System M.predicted [Volume non-numeric Rate/Area] in Serum or results) Plasma by Creatinine-based formula (CKD-EPI) eGFR will provide clinicians with a more accurate indicator of renal function then the serum creatinine. The eGFR is automa tically calculated from an empiric formula (endorsed by the National Kid[employer] ion) which incorporates age, sex, and race.Clinicians may notice surprisingly low GFR's with serum creatinine valueswithin normal range- particularly in elderly wo men (with low muscle mass).In the hospital setting, the eGFR should add an element of safety in drug dosing, in assessing the risk of IV contrast administration, and in assessing vascular risk.The NKF staging system is as follows:Normal: eGFR >90 with no kidney markersStage 1: eGFR >90 with kidney markers*Stage 2: eGFR 60- 89Stage 3: eGFR 30-59Stage 4: eGFR 15-29Stage 5: eGFR <15 (usually requir ing dialysis)*Markers include: Proteinuria, Hematuria, abnormal imaging-studies, or other blood or urine test abnormalities ID Date Data Source [id number] 08/21/2015 06:51:00 PM EDT [facility] Name Value Range Interpretation Description Data Sup porting Code Source(s) Document(s ) Alcohol none Normal (applies Alcohol Ethyl, [facility] Ethyl, detected to non-numeric Blood Health System Blood None results) Detected ID Date Data Source [id number] 08/21/2015 06:51:00 PM EDT [facility] Name Value Range Interpretation Description Data Sup porting Code Source(s) Document(s ) Lipase 36 U/L 8 - 78 Normal (applies to Lipase, Serum [facility] [Enzymatic U/L non-numeric Health System activity/v results) olume] in Serum or Plasma ID Date Data Source [id number] 08/21/2015 06:51:00 PM EDT [facility] Name Value Range Interpretation Description Data Sup porting Code Source(s) Document(s ) Amylase 143 30 - 110 Above high normal Amylase, Serum [facility] [Enzymatic {IU/L} IU/L Health System activity/vo lume] in Serum or Plasma ID Date Data Source [id number] 08/07/2015 10:25:00 AM EDT [facility] Name Value Range Interpretation Description Data Sup porting Code Source(s) Document(s ) Sodium 137 137 - Normal (applies Sodium, Serum [facility] [Moles/volum mmol/L 145 to non-numeric Health Syste m e] in Serum mmol/L results) or Plasma Potassium 4.7 3.6 - Normal (applies Potassium, [facility] [Mass/volume mmol/L 5.0 to non-numeric Serum Health Syste m ] in Serum mmol/L results) or Plasma Chloride 106 98 - 107 Normal (applies Chloride, [facility] [Moles/volum mmol/L mmol/L to non-numeric Serum Health Syste m e] in Serum results) or Plasma Carbon 20.0 22.0 - Below low normal CO2, Serum [facility] dioxide, mmol/L 30.0 Health System total mmol/L [Moles/volum e] in Serum or Plasma [place] Total Protein 7.0 mg/dl 6.3 - 8.2 Normal (applies to Total Protein [facility] mg/dl non-numeric Health System results) Glucose 101 mg/dL 65 - 105 Normal (applies to Glucose, [facility] [Mass/volume] mg/dL non-numeric Serum Health System in Serum or results) Plasma [place] Urea nitrogen 21 mg/dl 7 - 18 Above high Blood Urea [facility] [Mass/volume] in Serum mg/dl normal Nitrogen, Serum H ealth System or Plasma Creatinine 1.27 mg/dl 0.70 - Above high Creatinine, [facility] [Mass/volume] in Serum 1.20 mg/dl normal Serum Health System or Plasma Alkaline phosphatase 89 {IU/L} 38 - 126 Normal Alkaline [facility] isoenzymes [Enzymatic IU/L (applies to Phosphatase, Hea lth System activity/volume] in non-numeric Serum Serum or Plasma by results) Heat stability Bilirubin.total 0.2 mg/dl 0.2 - 1.3 Normal Bilirubin, [facility] [Mass/volume] in Serum mg/dl (applies to Serum Total Hea lth System or Plasma non-numeric results) Direct Bilirubin 0.1 mg/dl 0.0 - 0.4 Normal Direct [facility] mg/dl (applies to Bilirubin Health System non-numeric results) Aspartate 46 {IU/L} 5 - 40 Above high Aspartate [facility] aminotransferase IU/L normal Transaminase, Health Sy stem [Enzymatic Serum activity/volume] in Serum or Plasma by With P-5'-P Albumin [Mass/volume] 3.4 3.9 - 5.0 Below low Albumin, Serum [facility] in Serum or Plasma {gm/dl} gm/dl normal Health Syst em I. Phosphorus 3.9 mg/dl 2.5 - 4.5 Normal I. Phosphorus [facility] mg/dl (applies to Health System non-numeric results) Alanine 38 {IU/L} 7 - 56 Normal Alanine [facility] aminotransferase IU/L (applies to Aminotransferas Healt h System [Enzymatic non-numeric e, Serum activity/volume] in results) Serum or Plasma Calcium [Mass/volume] 8.7 mg/dl 8.4 - 10.2 Normal Calcium, Total [facility] in Serum or Plasma mg/dl (applies to Serum Health Sy stem non-numeric results) A/G Ratio 0.94 Normal A/G Ratio [facility] (applies to Health System non-numeric results) Urate [Mass/volume] in 4.5 mg/dl 2.5 - 7.5 Normal Uric Acid, [facility] Serum or Plasma mg/dl (applies to Serum Health Syste m non-numeric results) Anion gap in Serum or 11.00 8.00 - Normal Anion Gap [facility] Plasma mmol/L 12.00 (applies to Health System mmol/L non-numeric results) Glomerular filtration 42.80 Normal GFR [facility] rate/1.73 sq (applies to Health System M.predicted [Volume non-numeric Rate/Area] in Serum or results) Plasma by Creatinine-based formula (CKD-EPI) eGFR will provide clinicians with a more accurate indicator of renal function then the serum creatinine. The eGFR is automa tically calculated from an empiric formula (endorsed by the [employer] ion) which incorporates age, sex, and race.Clinicians may notice surprisingly low GFR's with serum creatinine valueswithin normal range- particularly in elderly wo men (with low muscle mass).In the hospital setting, the eGFR should add an element of safety in drug dosing, in assessing the risk of IV contrast administration, and in assessing vascular risk.The NKF staging system is as follows:Normal: eGFR >90 with no kidney markersStage 1: eGFR >90 with kidney markers*Stage 2: eGFR 60- 89Stage 3: eGFR 30-59Stage 4: eGFR 15-29Stage 5: eGFR <15 (usually requir ing dialysis)*Markers include: Proteinuria, Hematuria, abnormal imaging-studies, or other blood or urine test abnormalities ID Date Data Source [id number] 08/06/2015 06:00:00 AM [facility] System Name Value Range Interpretation Description Data Sup porting Code Source(s) Document(s ) Leukocytes 4.0 4.8 - Below low normal WBC Count [facility] [#/volume] in {10^3_uL 10.8 Health Unspecified } 10^3 uL System specimen by Automated count Erythrocytes 3.64 3.80 - Below low normal RBC Count [facility] [#/volume] in {10^6_uL 5.20 Health Blood by } 10^6 uL System Automated count Hemoglobin 10.5 12.0 - Below low normal Hemoglobin [facility] [Mass/volume] in {gm/dL} 16.0 Health Blood gm/dL System Hematocrit 31.6 % 36.0 - Below low normal Hematocrit [facility] [Volume 46.0 % Health Fraction] of System Blood Erythrocyte mean 86.8 fl 80.0 - Normal (applies MCV [facility] corpuscular 100.0 to non-numeric Health volume [Entitic fl results) System volume] by Automated count Erythrocyte mean 28.8 pg 26.0 - Normal (applies MCH [facility] corpuscular 34.0 pg to non-numeric Health hemoglobin results) System [Entitic mass] by Automated count Erythrocyte mean 33.2 33.0 - Normal (applies MCHC [facility] corpuscular {gm/dL} 37.0 to non-numeric Health hemoglobin gm/dL results) System concentration [Mass/volume] by Automated count Erythrocyte 13.5 % 11.5 - Normal (applies RDW-CV [facility] distribution 14.5 % to non-numeric Health width [Entitic results) System volume] by Automated count Platelets 229 130 - Normal (applies Platelet [facility] [#/volume] in {10^3_uL 400 to non-numeric Count Health Plasma by } 10^3 uL results) System Automated count Platelet mean 11.3 fl 7.4 - Above high MPV [facility] volume [Entitic 10.4 fl normal Health volume] in Blood System by Automated count Monocytes 0.3 0.3 - Normal (applies Monocyte # [facility] [#/volume] in {10^3_uL 0.9 to non-numeric Health Blood by Manual } 10^3 uL results) System count Eosinophils 0.07 0.05 - Normal (applies Eosinophil # [facility] [#/volume] in {10^3_uL 0.30 to non-numeric Health Blood } 10^3 uL results) System Neutrophils 2.2 2.0 - Normal (applies Neutrophil # [facility] [#/volume] in {10^3_uL 8.1 to non-numeric Health Body fluid } 10^3 uL results) System Basophils 0.02 0.00 - Normal (applies Basophil # [facility] [#/volume] in {10^3_uL 0.10 to non-numeric Health Blood by } 10^3 uL results) System Automated count Lymphocyte # 1.5 1.0 - Normal (applies Lymphocyte # [facility] {10^3_uL 5.5 to non-numeric Health } 10^3 uL results) System Neutrophils/100 54.3 % 0.0 - Normal (applies Neutrophil % [facility] leukocytes in 120.0 % to non-numeric Health Blood by results) System Automated count Monocytes/100 7.4 % 6.0 - Normal (applies Monocyte % [place] leukocytes in 9.0 % to non-numeric Health Blood results) System Eosinophils/100 1.7 % 1.0 - Normal (applies Eosinophil % [facility] grace leukocytes in 3.0 % to non-numeric Health Unspecified results) System specimen Basophils/100 0.5 % 0.0 - Normal (applies Basophil % [place] leukocytes in 1.0 % to non-numeric Health Unspecified results) System specimen by Manual count Lymphocytes 36.1 % 21.0 - Normal (applies Lymphocyte % [place] [facility] [#/volume] in 51.0 % to non-numeric Health Blood by results) System Automated count ID Date Data Source [id number] 08/06/2015 06:00:00 AM [facility] System Name Value Range Interpretation Description Data Sup porting Code Source(s) Document(s ) Sodium 137 137 - Normal (applies Sodium, Serum [facility] [Moles/volum mmol/L 145 to non-numeric Health Syste m e] in Serum mmol/L results) or Plasma Potassium 4.0 3.6 - Normal (applies Potassium, [facility] [Mass/volume mmol/L 5.0 to non-numeric Serum Health Syste m ] in Serum mmol/L results) or Plasma Chloride 101 98 - 107 Normal (applies Chloride, [facility] [Moles/volum mmol/L mmol/L to non-numeric Serum Health Syste m e] in Serum results) or Plasma Carbon 25.0 22.0 - Normal (applies CO2, Serum [facility] dioxide, mmol/L 30.0 to non-numeric Health System total mmol/L results) [Moles/volum e] in Serum or Plasma Total 7.2 6.3 - Normal (applies Total Protein [facility] Protein mg/dl 8.2 to non-numeric Health System mg/dl results) Glucose 280 65 - 105 Above high normal Glucose, Serum [facility] [Mass/volume mg/dL mg/dL Health System ] in Serum or Plasma [place] Urea nitrogen 24 mg/dl 7 - 18 Above high Blood Urea [facility] [Mass/volume] in Serum mg/dl normal Nitrogen, Serum H ealth System or Plasma Creatinine 1.61 mg/dl 0.70 - Above high Creatinine, [facility] [Mass/volume] in Serum 1.20 mg/dl normal Serum Health System or Plasma Alkaline phosphatase 118 {IU/L} 38 - 126 Normal Alkaline [facility] isoenzymes [Enzymatic IU/L (applies to Phosphatase, a lt System activity/volume] in non-numeric Serum Serum or Plasma by results) Heat stability Bilirubin.total 0.3 mg/dl 0.2 - 1.3 Normal Bilirubin, [facility] [Mass/volume] in Serum mg/dl (applies to Serum Total Hea lth System or Plasma non-numeric results) Direct Bilirubin 0.1 mg/dl 0.0 - 0.4 Normal Direct [facility] mg/dl (applies to Bilirubin [facility] System non-numeric results) Aspartate 51 {IU/L} 5 - 40 Above high Aspartate [facility] aminotransferase IU/L normal Transaminase, Health Sy stem [Enzymatic Serum activity/volume] in Serum or Plasma by With P-5'-P Albumin [Mass/volume] 3.6 3.9 - 5.0 Below low Albumin, Serum [facility] in Serum or Plasma {gm/dl} gm/dl normal Health Syst em I. Phosphorus 4.9 mg/dl 2.5 - 4.5 Above high I. Phosphorus [facility] mg/dl normal Health System Alanine 42 {IU/L} 7 - 56 Normal Alanine [facility] aminotransferase IU/L (applies to Aminotransferas Healt [facility] System [Enzymatic non-numeric e, Serum activity/volume] in results) Serum or Plasma Calcium [Mass/volume] 9.3 mg/dl 8.4 - 10.2 Normal Calcium, Total [facility] in Serum or Plasma mg/dl (applies to Serum Health Sy stem non-numeric results) A/G Ratio 1.00 Normal A/G Ratio [facility] (applies to Health System non-numeric results) Urate [Mass/volume] in 4.7 mg/dl 2.5 - 7.5 Normal Uric Acid, [facility] Serum or Plasma mg/dl (applies to Serum Health Syste m non-numeric results) Anion gap in Serum or 11.00 8.00 - Normal Anion Gap [facility] Plasma mmol/L 12.00 (applies to Health System mmol/L non-numeric results) Glomerular filtration 32.55 Normal GFR [facility] rate/1.73 sq (applies to Health System M.predicted [Volume non-numeric Rate/Area] in Serum or results) Plasma by Creatinine-based formula (CKD-EPI) eGFR will provide clinicians with a more accurate indicator of renal function then the serum creatinine. The eGFR is automa tically calculated from an empiric formula (endorsed by the [employer]) which incorporates age, sex, and race.Clinicians may notice surprisingly low GFR's with serum creatinine valueswithin normal range- particularly in elderly wo men (with low muscle mass).In the hospital setting, the eGFR should add an element of safety in drug dosing, in assessing the risk of IV contrast administration, and in assessing vascular risk.The NKF staging system is as follows:Normal: eGFR >90 with no kidney markersStage 1: eGFR >90 with kidney markers*Stage 2: eGFR 60- 89Stage 3: eGFR 30-59Stage 4: eGFR 15-29Stage 5: eGFR <15 (usually requir ing dialysis)*Markers include: Proteinuria, Hematuria, abnormal imaging-studies, or other blood or urine test abnormalities ID Date Data Source [id number] 08/05/2015 06:00:00 AM EDT [facility] System Name Value Range Interpretation Description Data Sup porting Code Source(s) Document(s ) Bacteria NO GROWTH Culture [facility] identified in Bacteria Blood Health Syst em Blood by [facility] culture ID Date Data Source [id number] 08/05/2015 06:00:00 AM EDT [facility] System Name Value Range Interpretation Description Data Sup porting Code Source(s) Document(s ) Bacteria NO GROWTH Culture [facility] identified in Bacteria Blood Health Syst em Blood by [facility] culture ID Date Data Source [id number] 08/05/2015 06:00:00 AM EDT [facility] System Name Value Range Interpretation Description Data Sup porting Code Source(s) Document(s ) Leukocytes 3.7 4.8 - Below low normal WBC Count [facility] [#/volume] in {10^3_uL 10.8 Health Unspecified } 10^3 uL System specimen by Automated count Erythrocytes 3.63 3.80 - Below low normal RBC Count [facility] [#/volume] in {10^6_uL 5.20 Health Blood by } 10^6 uL System Automated count Hemoglobin 10.6 12.0 - Below low normal Hemoglobin [facility] [Mass/volume] in {gm/dL} 16.0 Health Blood gm/dL System Hematocrit 31.5 % 36.0 - Below low normal Hematocrit [facility] [Volume 46.0 % Health Fraction] of System Blood Erythrocyte mean 86.8 fl 80.0 - Normal (applies MCV [facility] corpuscular 100.0 to non-numeric Health volume [Entitic fl results) System volume] by Automated count Erythrocyte mean 29.2 pg 26.0 - Normal (applies MCH [facility] corpuscular 34.0 pg to non-numeric Health hemoglobin results) System [Entitic mass] by Automated count Erythrocyte mean 33.7 33.0 - Normal (applies MCHC [facility] [facility] corpuscular {gm/dL} 37.0 to non-numeric Health hemoglobin gm/dL results) System concentration [Mass/volume] by Automated count Erythrocyte 13.4 % 11.5 - Normal (applies RDW-CV [facility] distribution 14.5 % to non-numeric Health width [Entitic results) System volume] by Automated count Platelets 212 130 - Normal (applies Platelet [facility] [#/volume] in {10^3_uL 400 to non-numeric Count Health Plasma by } 10^3 uL results) System Automated count Platelet mean 10.9 fl 7.4 - Above high MPV [facility] volume [Entitic 10.4 fl normal Health volume] in Blood System by Automated count Monocytes 0.2 0.3 - Below low normal Monocyte # [facility] [#/volume] in {10^3_uL 0.9 Health Blood by Manual } 10^3 uL System count Eosinophils 0.03 0.05 - Below low normal Eosinophil # [facility] [facility] [#/volume] in {10^3_uL 0.30 Health Blood } 10^3 uL System Neutrophils 2.0 2.0 - Below low normal Neutrophil # [facility] [facility] [#/volume] in {10^3_uL 8.1 Health Body fluid } 10^3 uL System Basophils 0.02 0.00 - Normal (applies Basophil # [facility] [#/volume] in {10^3_uL 0.10 to non-numeric Health Blood by } 10^3 uL results) System Automated count Lymphocyte # 1.5 1.0 - Normal (applies Lymphocyte # [facility] {10^3_uL 5.5 to non-numeric Health } 10^3 uL results) System Neutrophils/100 52.8 % 0.0 - Normal (applies Neutrophil % [facility] grace leukocytes in 120.0 % to non-numeric Health Blood by results) System Automated count Monocytes/100 5.6 % 6.0 - Below low normal Monocyte % [facility] leukocytes in 9.0 % Health Blood System Eosinophils/100 0.8 % 1.0 - Below low normal Eosinophil % [facility] leukocytes in 3.0 % Health Unspecified System specimen Basophils/100 0.5 % 0.0 - Normal (applies Basophil % [place] leukocytes in 1.0 % to non-numeric Health Unspecified results) System specimen by Manual count Lymphocytes 40.3 % 21.0 - Normal (applies Lymphocyte % [place] [facility] [#/volume] in 51.0 % to non-numeric Health Blood by results) System Automated count ID Date Data Source [id number] 08/05/2015 06:00:00 AM EDT [facility] System Name Value Range Interpretation Description Data Sup porting Code Source(s) Document(s ) Sodium 137 137 - Normal (applies Sodium, Serum [facility] [Moles/volume] in mmol/L 145 to non-numeric Health Serum or Plasma mmol/L results) System Potassium 4.4 3.6 - Normal (applies Potassium, [facility] [Mass/volume] in mmol/L 5.0 to non-numeric Serum Health Serum or Plasma mmol/L results) System Chloride 102 98 - Normal (applies Chloride, [facility] [Moles/volume] in mmol/L 107 to non-numeric Serum Health Serum or Plasma mmol/L results) System Carbon dioxide, 27.0 22.0 - Normal (applies CO2, Serum [facility] total mmol/L 30.0 to non-numeric Health [Moles/volume] in mmol/L results) System Serum or Plasma Total Protein 6.6 6.3 - Normal (applies Total Protein [facility] mg/dl 8.2 to non-numeric Health mg/dl results) System Glucose 226 65 - Above high Glucose, [facility] [Mass/volume] in mg/dL 105 normal Serum Health Serum or Plasma mg/dL System Urea nitrogen 27 7 - 18 Above high Blood Urea [facility] [Mass/volume] in mg/dl mg/dl normal Nitrogen, Health Serum or Plasma Serum System Creatinine 1.49 0.70 - Above high Creatinine, [facility] [Mass/volume] in mg/dl 1.20 normal Serum Health Serum or Plasma mg/dl System Alkaline 105 38 - Normal (applies Alkaline [facility] phosphatase {IU/L} 126 to non-numeric Phosphatase, Health isoenzymes IU/L results) Serum System [Enzymatic activity/volume] in Serum or Plasma by Heat stability Bilirubin.total 0.3 0.2 - Normal (applies Bilirubin, [facility] [Mass/volume] in mg/dl 1.3 to non-numeric Serum Total Health Serum or Plasma mg/dl results) System Direct Bilirubin 0.1 0.0 - Normal (applies Direct [facility] mg/dl 0.4 to non-numeric Bilirubin Health mg/dl results) System Aspartate 45 5 - 40 Above high Aspartate [facility] aminotransferase {IU/L} IU/L normal Transaminase, Health [Enzymatic Serum System activity/volume] in Serum or Plasma by With P-5'-P Albumin 3.3 3.9 - Below low normal Albumin, [facility] [Mass/volume] in {gm/dl} 5.0 Serum Health Serum or Plasma gm/dl System I. Phosphorus 5.0 2.5 - Above high I. Phosphorus [facility] mg/dl 4.5 normal Health mg/dl System Alanine 42 7 - 56 Normal (applies Alanine [facility] aminotransferase {IU/L} IU/L to non-numeric Aminotransfer Heal th [Enzymatic results) ase, Serum System activity/volume] in Serum or Plasma Calcium 9.2 8.4 - Normal (applies Calcium, [facility] [Mass/volume] in mg/dl 10.2 to non-numeric Total Serum Health Serum or Plasma mg/dl results) System A/G Ratio 1.00 Normal (applies A/G Ratio [facility] to non-numeric Health results) System Urate 4.4 2.5 - Normal (applies Uric Acid, [facility] [Mass/volume] in mg/dl 7.5 to non-numeric Serum Health Serum or Plasma mg/dl results) System Anion gap in Serum 8.00 8.00 - Normal (applies Anion Gap [facility] or Plasma mmol/L 12.00 to non-numeric Health mmol/L results) System Glomerular 35.59 Normal (applies GFR [facility] filtration to non-numeric Health rate/1.73 sq results) System M.predicted [Volume Rate/Area] in Serum or Plasma by Creatinine-based formula (CKD-EPI) eGFR will provide clinicians with a more accurate indicator of renal function then the serum creatinine. The eGFR is automa tically calculated from an empiric formula (endorsed by the [employer]) which incorporates age, sex, and race.Clinicians may notice surprisingly low GFR's with serum creatinine valueswithin normal range- particularly in elderly wo men (with low muscle mass).In the hospital setting, the eGFR should add an element of safety in drug dosing, in assessing the risk of IV contrast administration, and in assessing vascular risk.The NKF staging system is as follows:Normal: eGFR >90 with no kidney markersStage 1: eGFR >90 with kidney markers*Stage 2: eGFR 60- 89Stage 3: eGFR 30-59Stage 4: eGFR 15-29Stage 5: eGFR <15 (usually requir ing dialysis)*Markers include: Proteinuria, Hematuria, abnormal imaging-studies, or other blood or urine test abnormalities ID Date Data Source [id number] 08/04/2015 06:00:00 AM EDT [facility] System Name Value Range Interpretation Description Data Sup porting Code Source(s) Document(s ) Bacteria NO GROWTH Culture [facility] identified in Bacteria Blood Health Syst em Blood by [facility] culture ID Date Data Source [id number] 08/04/2015 06:00:00 AM EDT [facility] System Name Value Range Interpretation Description Data Sup porting Code Source(s) Document(s ) Bacteria NO GROWTH Culture [facility] identified in Bacteria Blood Health Syst em Blood by [facility] culture ID Date Data Source [id number] 08/04/2015 06:00:00 AM EDT [facility] System Name Value Range Interpretation Description Data Sup porting Code Source(s) Document(s ) Leukocytes 4.5 4.8 - Below low normal WBC Count [facility] [#/volume] in {10^3_uL 10.8 Health Unspecified } 10^3 uL System specimen by Automated count Erythrocytes 3.54 3.80 - Below low normal RBC Count [facility] [#/volume] in {10^6_uL 5.20 Health Blood by } 10^6 uL System Automated count Hemoglobin 10.2 12.0 - Below low normal Hemoglobin [facility] [Mass/volume] in {gm/dL} 16.0 Health Blood gm/dL System Hematocrit 30.0 % 36.0 - Below low normal Hematocrit [facility] [Volume 46.0 % Health Fraction] of System Blood Erythrocyte mean 84.7 fl 80.0 - Normal (applies MCV [facility] corpuscular 100.0 to non-numeric Health volume [Entitic fl results) System volume] by Automated count Erythrocyte mean 28.8 pg 26.0 - Normal (applies MCH [facility] corpuscular 34.0 pg to non-numeric Health hemoglobin results) System [Entitic mass] by Automated count Erythrocyte mean 34.0 33.0 - Normal (applies MCHC [facility] corpuscular {gm/dL} 37.0 to non-numeric Health hemoglobin gm/dL results) System concentration [Mass/volume] by Automated count Erythrocyte 13.2 % 11.5 - Normal (applies RDW-CV [facility] distribution 14.5 % to non-numeric Health width [Entitic results) System volume] by Automated count Platelets 182 130 - Normal (applies Platelet [facility] [#/volume] in {10^3_uL 400 to non-numeric Count Health Plasma by } 10^3 uL results) System Automated count Platelet mean 11.0 fl 7.4 - Above high MPV [facility] volume [Entitic 10.4 fl normal Health volume] in Blood System by Automated count Monocytes 0.3 0.3 - Normal (applies Monocyte # [facility] [#/volume] in {10^3_uL 0.9 to non-numeric Health Blood by Manual } 10^3 uL results) System count Eosinophils 0.08 0.05 - Normal (applies Eosinophil # [facility] [facility] [#/volume] in {10^3_uL 0.30 to non-numeric Health Blood } 10^3 uL results) System Neutrophils 2.3 2.0 - Normal (applies Neutrophil # [facility] [facility] [#/volume] in {10^3_uL 8.1 to non-numeric Health Body fluid } 10^3 uL results) System Basophils 0.03 0.00 - Normal (applies Basophil # [facility] [#/volume] in {10^3_uL 0.10 to non-numeric Health Blood by } 10^3 uL results) System Automated count Lymphocyte # 1.7 1.0 - Normal (applies Lymphocyte # [facility] {10^3_uL 5.5 to non-numeric Health } 10^3 uL results) System Neutrophils/100 51.4 % 0.0 - Normal (applies Neutrophil % U[facility] grace leukocytes in 120.0 % to non-numeric Health Blood by results) System Automated count Monocytes/100 7.3 % 6.0 - Normal (applies Monocyte % [facility] [facility] leukocytes in 9.0 % to non-numeric Health Blood results) System Eosinophils/100 1.8 % 1.0 - Normal (applies Eosinophil % U[facility] grace leukocytes in 3.0 % to non-numeric Health Unspecified results) System specimen Basophils/100 0.7 % 0.0 - Normal (applies Basophil % [facility] [facility] leukocytes in 1.0 % to non-numeric Health Unspecified results) System specimen by Manual count Lymphocytes 38.8 % 21.0 - Normal (applies Lymphocyte % [facility] [#/volume] in 51.0 % to non-numeric Health Blood by results) System Automated count ID Date Data Source [id number] 08/04/2015 06:00:00 AM EDT [facility] System Name Value Range Interpretation Description Data Sup porting Code Source(s) Document(s ) Sodium 136 137 - Below low normal Sodium, Serum [facility] [Moles/volume] in mmol/L 145 Health Serum or Plasma mmol/L System Potassium 4.8 3.6 - Normal (applies Potassium, [facility] [Mass/volume] in mmol/L 5.0 to non-numeric Serum Health Serum or Plasma mmol/L results) System Chloride 99 98 - Normal (applies Chloride, [facility] [Moles/volume] in mmol/L 107 to non-numeric Serum Health Serum or Plasma mmol/L results) System Carbon dioxide, 28.0 22.0 - Normal (applies CO2, Serum [facility] total mmol/L 30.0 to non-numeric Health [Moles/volume] in mmol/L results) System Serum or Plasma Total Protein 6.3 6.3 - Normal (applies Total Protein [facility] mg/dl 8.2 to non-numeric Health mg/dl results) System Glucose 126 65 - Above high Glucose, [facility] [Mass/volume] in mg/dL 105 normal Serum Health Serum or Plasma mg/dL System Urea nitrogen 27 7 - 18 Above high Blood Urea [facility] [Mass/volume] in mg/dl mg/dl normal Nitrogen, Health Serum or Plasma Serum System Creatinine 1.43 0.70 - Above high Creatinine, [facility] [Mass/volume] in mg/dl 1.20 normal Serum Health Serum or Plasma mg/dl System Alkaline 91 38 - Normal (applies Alkaline [facility] phosphatase {IU/L} 126 to non-numeric Phosphatase, Health isoenzymes IU/L results) Serum System [Enzymatic activity/volume] in Serum or Plasma by Heat stability Bilirubin.total 0.3 0.2 - Normal (applies Bilirubin, [facility] [Mass/volume] in mg/dl 1.3 to non-numeric Serum Total Health Serum or Plasma mg/dl results) System Direct Bilirubin 0.2 0.0 - Normal (applies Direct [facility] mg/dl 0.4 to non-numeric Bilirubin Health mg/dl results) System Aspartate 66 5 - 40 Above high Aspartate [facility] aminotransferase {IU/L} IU/L normal Transaminase, Health [Enzymatic Serum System activity/volume] in Serum or Plasma by With P-5'-P Albumin 3.2 3.9 - Below low normal Albumin, [facility] [Mass/volume] in {gm/dl} 5.0 Serum Health Serum or Plasma gm/dl System I. Phosphorus 4.2 2.5 - Normal (applies I. Phosphorus [facility] mg/dl 4.5 to non-numeric Health mg/dl results) System Alanine 50 7 - 56 Normal (applies Alanine [facility] aminotransferase {IU/L} IU/L to non-numeric Aminotransfer Heal th [Enzymatic results) ase, Serum System activity/volume] in Serum or Plasma Calcium 8.9 8.4 - Normal (applies Calcium, [facility] [Mass/volume] in mg/dl 10.2 to non-numeric Total Serum Health Serum or Plasma mg/dl results) System A/G Ratio 1.03 Normal (applies A/G Ratio [facility] to non-numeric Health results) System Urate 4.2 2.5 - Normal (applies Uric Acid, [facility] [Mass/volume] in mg/dl 7.5 to non-numeric Serum Health Serum or Plasma mg/dl results) System Anion gap in Serum 9.00 8.00 - Normal (applies Anion Gap [facility] or Plasma mmol/L 12.00 to non-numeric Health mmol/L results) System Glomerular 37.32 Normal (applies GFR [facility] filtration to non-numeric Health rate/1.73 sq results) System M.predicted [Volume Rate/Area] in Serum or Plasma by Creatinine-based formula (CKD-EPI) eGFR will provide clinicians with a more accurate indicator of renal function then the serum creatinine. The eGFR is automa tically calculated from an empiric formula (endorsed by the [employer]) which incorporates age, sex, and race.Clinicians may notice surprisingly low GFR's with serum creatinine valueswithin normal range- particularly in elderly wo men (with low muscle mass).In the hospital setting, the eGFR should add an element of safety in drug dosing, in assessing the risk of IV contrast administration, and in assessing vascular risk.The NKF staging system is as follows:Normal: eGFR >90 with no kidney markersStage 1: eGFR >90 with kidney markers*Stage 2: eGFR 60- 89Stage 3: eGFR 30-59Stage 4: eGFR 15-29Stage 5: eGFR <15 (usually requir ing dialysis)*Markers include: Proteinuria, Hematuria, abnormal imaging-studies, or other blood or urine test abnormalities ID Date Data Source [id number] 08/04/2015 06:00:00 AM EDT [facility] System Name Value Range Interpretation Description Data Sup porting Code Source(s) Document(s ) Magnesium 1.6 1.7 - Below low normal Magnesium, [facility] [Mass/volume {mEq/L} 2.2 Serum Health System ] in Serum mEq/L or Plasma ID Date Data Source [id number] 08/03/2015 06:00:00 AM EDT [facility] System Name Value Range Interpretation Description Data Sup porting Code Source(s) Document(s ) Leukocytes 4.4 4.8 - Below low normal WBC Count [facility] [#/volume] in {10^3_uL 10.8 Health Unspecified } 10^3 uL System specimen by Automated count Erythrocytes 3.36 3.80 - Below low normal RBC Count [facility] [#/volume] in {10^6_uL 5.20 Health Blood by } 10^6 uL System Automated count Hemoglobin 9.9 12.0 - Below low normal Hemoglobin [facility] [Mass/volume] in {gm/dL} 16.0 Health Blood gm/dL System Hematocrit 28.1 % 36.0 - Below low normal Hematocrit [facility] [Volume 46.0 % Health Fraction] of System Blood Erythrocyte mean 83.6 fl 80.0 - Normal (applies MCV [facility] corpuscular 100.0 to non-numeric Health volume [Entitic fl results) System volume] by Automated count Erythrocyte mean 29.5 pg 26.0 - Normal (applies MCH [facility] corpuscular 34.0 pg to non-numeric Health hemoglobin results) System [Entitic mass] by Automated count Erythrocyte mean 35.2 33.0 - Normal (applies MCHC [facility] corpuscular {gm/dL} 37.0 to non-numeric Health hemoglobin gm/dL results) System concentration [Mass/volume] by Automated count Erythrocyte 13.0 % 11.5 - Normal (applies RDW-CV [facility] distribution 14.5 % to non-numeric Health width [Entitic results) System volume] by Automated count Platelets 166 130 - Normal (applies Platelet [facility] [#/volume] in {10^3_uL 400 to non-numeric Count Health Plasma by } 10^3 uL results) System Automated count Platelet mean 11.9 fl 7.4 - Above high MPV [facility] volume [Entitic 10.4 fl normal Health volume] in Blood System by Automated count Monocytes 0.2 0.3 - Below low normal Monocyte # [facility] [#/volume] in {10^3_uL 0.9 Health Blood by Manual } 10^3 uL System count Eosinophils 0.05 0.05 - Normal (applies Eosinophil # [facility] [#/volume] in {10^3_uL 0.30 to non-numeric Health Blood } 10^3 uL results) System Neutrophils 2.5 2.0 - Normal (applies Neutrophil # [facility] [#/volume] in {10^3_uL 8.1 to non-numeric Health Body fluid } 10^3 uL results) System Basophils 0.02 0.00 - Normal (applies Basophil # [facility] [#/volume] in {10^3_uL 0.10 to non-numeric Health Blood by } 10^3 uL results) System Automated count Lymphocyte # 1.6 1.0 - Normal (applies Lymphocyte # [facility] {10^3_uL 5.5 to non-numeric Health } 10^3 uL results) System Neutrophils/100 57.6 % 0.0 - Normal (applies Neutrophil % [facility] leukocytes in 120.0 % to non-numeric Health Blood by results) System Automated count Monocytes/100 5.3 % 6.0 - Below low normal Monocyte % [facility] leukocytes in 9.0 % Health Blood System Eosinophils/100 1.1 % 1.0 - Normal (applies Eosinophil % [facility] leukocytes in 3.0 % to non-numeric Health Unspecified results) System specimen Basophils/100 0.5 % 0.0 - Normal (applies Basophil % [facility] leukocytes in 1.0 % to non-numeric Health Unspecified results) System specimen by Manual count Lymphocytes 35.5 % 21.0 - Normal (applies Lymphocyte % [facility] [#/volume] in 51.0 % to non-numeric Health Blood by results) System Automated count ID Date Data Source [id number] 08/03/2015 06:00:00 AM [facility] System Name Value Range Interpretation Description Data Sup porting Code Source(s) Document(s ) Sodium 134 137 - Below low normal Sodium, Serum [facility] [Moles/volume] in mmol/L 145 Health Serum or Plasma mmol/L System Potassium 3.9 3.6 - Normal (applies Potassium, [facility] [Mass/volume] in mmol/L 5.0 to non-numeric Serum Health Serum or Plasma mmol/L results) System Chloride 105 98 - Normal (applies Chloride, [facility] [Moles/volume] in mmol/L 107 to non-numeric Serum Health Serum or Plasma mmol/L results) System Carbon dioxide, 23.0 22.0 - Normal (applies CO2, Serum [facility] total mmol/L 30.0 to non-numeric Health [Moles/volume] in mmol/L results) System Serum or Plasma Total Protein 6.1 6.3 - Below low normal Total Protein Ubaldo grace mg/dl 8.2 Health mg/dl System Glucose 200 65 - Above high Glucose, [facility] [Mass/volume] in mg/dL 105 normal Serum Health Serum or Plasma mg/dL System Urea nitrogen 17 7 - 18 Normal (applies Blood Urea [facility] [Mass/volume] in mg/dl mg/dl to non-numeric Nitrogen, Health Serum or Plasma results) Serum System Creatinine 1.30 0.70 - Above high Creatinine, [facility] [Mass/volume] in mg/dl 1.20 normal Serum Health Serum or Plasma mg/dl System Alkaline 94 38 - Normal (applies Alkaline [facility] phosphatase {IU/L} 126 to non-numeric Phosphatase, [facility] isoenzymes IU/L results) Serum System [Enzymatic activity/volume] in Serum or Plasma by Heat stability Bilirubin.total 0.2 0.2 - Normal (applies Bilirubin, [facility] [Mass/volume] in mg/dl 1.3 to non-numeric Serum Total Health Serum or Plasma mg/dl results) System Direct Bilirubin 0.1 0.0 - Normal (applies Direct [facility] mg/dl 0.4 to non-numeric Bilirubin [facility] mg/dl results) System Aspartate 31 5 - 40 Normal (applies Aspartate [facility] aminotransferase {IU/L} IU/L to non-numeric Transaminase, [facility] [Enzymatic results) Serum System activity/volume] in Serum or Plasma by With P-5'-P Albumin 3.0 3.9 - Below low normal Albumin, [facility] [Mass/volume] in {gm/dl} 5.0 Serum Health Serum or Plasma gm/dl System I. Phosphorus 3.6 2.5 - Normal (applies I. Phosphorus [facility] mg/dl 4.5 to non-numeric Health mg/dl results) System Alanine 35 7 - 56 Normal (applies Alanine [facility] aminotransferase {IU/L} IU/L to non-numeric Aminotransfer [facility] [Enzymatic results) ase, Serum System activity/volume] in Serum or Plasma Calcium 8.4 8.4 - Normal (applies Calcium, [facility] [Mass/volume] in mg/dl 10.2 to non-numeric Total Serum [facility] Serum or Plasma mg/dl results) System A/G Ratio 0.97 Normal (applies A/G Ratio [facility] to non-numeric Health results) System Urate 3.7 2.5 - Normal (applies Uric Acid, [facility] [Mass/volume] in mg/dl 7.5 to non-numeric Serum Health Serum or Plasma mg/dl results) System Anion gap in Serum 6.00 8.00 - Below low normal Anion Gap [facility] or Plasma mmol/L 12.00 Health mmol/L System Glomerular 41.66 Normal (applies GFR [facility] filtration to non-numeric Health rate/1.73 sq results) System M.predicted [Volume Rate/Area] in Serum or Plasma by Creatinine-based formula (CKD-EPI) eGFR will provide clinicians with a more accurate indicator of renal function then the serum creatinine. The eGFR is automa tically calculated from an empiric formula (endorsed by the [employer]) which incorporates age, sex, and race.Clinicians may notice surprisingly low GFR's with serum creatinine valueswithin normal range- particularly in elderly wo men (with low muscle mass).In the hospital setting, the eGFR should add an element of safety in drug dosing, in assessing the risk of IV contrast administration, and in assessing vascular risk.The NKF staging system is as follows:Normal: eGFR >90 with no kidney markersStage 1: eGFR >90 with kidney markers*Stage 2: eGFR 60- 89Stage 3: eGFR 30-59Stage 4: eGFR 15-29Stage 5: eGFR <15 (usually requir ing dialysis)*Markers include: Proteinuria, Hematuria, abnormal imaging-studies, or other blood or urine test abnormalities ID Date Data Source [id number] 08/02/2015 06:00:00 AM EDT [facility] System Name Value Range Interpretation Description Data Sup porting Code Source(s) Document(s ) Leukocytes 6.3 4.8 - Normal (applies WBC Count [facility] [#/volume] in {10^3_uL 10.8 to non-numeric Health Unspecified } 10^3 uL results) System specimen by Automated count Erythrocytes 3.26 3.80 - Below low normal RBC Count [facility] [#/volume] in {10^6_uL 5.20 Health Blood by } 10^6 uL System Automated count Hemoglobin 9.7 12.0 - Below low normal Hemoglobin [facility] [Mass/volume] in {gm/dL} 16.0 Health Blood gm/dL System Hematocrit 27.2 % 36.0 - Below low normal Hematocrit [facility] [Volume 46.0 % Health Fraction] of System Blood Erythrocyte mean 83.4 fl 80.0 - Normal (applies MCV [facility] corpuscular 100.0 to non-numeric Health volume [Entitic fl results) System volume] by Automated count Erythrocyte mean 29.8 pg 26.0 - Normal (applies MCH [facility] corpuscular 34.0 pg to non-numeric Health hemoglobin results) System [Entitic mass] by Automated count Erythrocyte mean 35.7 33.0 - Normal (applies MCHC [facility] corpuscular {gm/dL} 37.0 to non-numeric Health hemoglobin gm/dL results) System concentration [Mass/volume] by Automated count Erythrocyte 12.9 % 11.5 - Normal (applies RDW-CV [facility] distribution 14.5 % to non-numeric Health width [Entitic results) System volume] by Automated count Platelets 131 130 - Normal (applies Platelet [facility] [#/volume] in {10^3_uL 400 to non-numeric Count Health Plasma by } 10^3 uL results) System Automated count Platelet mean 12.1 fl 7.4 - Above high MPV [facility] volume [Entitic 10.4 fl normal Health volume] in Blood System by Automated count Monocytes 0.4 0.3 - Normal (applies Monocyte # [facility] [#/volume] in {10^3_uL 0.9 to non-numeric Health Blood by Manual } 10^3 uL results) System count Eosinophils 0.05 0.05 - Normal (applies Eosinophil # [facility] [#/volume] in {10^3_uL 0.30 to non-numeric Health Blood } 10^3 uL results) System Neutrophils 3.3 2.0 - Normal (applies Neutrophil # [facility] [#/volume] in {10^3_uL 8.1 to non-numeric Health Body fluid } 10^3 uL results) System Basophils 0.01 0.00 - Normal (applies Basophil # [facility] [#/volume] in {10^3_uL 0.10 to non-numeric Health Blood by } 10^3 uL results) System Automated count Lymphocyte # 2.6 1.0 - Normal (applies Lymphocyte # [facility] {10^3_uL 5.5 to non-numeric Health } 10^3 uL results) System Neutrophils/100 51.8 % 0.0 - Normal (applies Neutrophil % Ubaldo grace leukocytes in 120.0 % to non-numeric Health Blood by results) System Automated count Monocytes/100 6.2 % 6.0 - Normal (applies Monocyte % [facility] leukocytes in 9.0 % to non-numeric Health Blood results) System Eosinophils/100 0.8 % 1.0 - Below low normal Eosinophil % [facility] leukocytes in 3.0 % Health Unspecified System specimen Basophils/100 0.2 % 0.0 - Normal (applies Basophil % [facility] leukocytes in 1.0 % to non-numeric Health Unspecified results) System specimen by Manual count Lymphocytes 41.0 % 21.0 - Normal (applies Lymphocyte % [facility] [#/volume] in 51.0 % to non-numeric Health Blood by results) System Automated count ID Date Data Source [id number] 08/02/2015 06:00:00 AM EDT [facility] System Name Value Range Interpretation Description Data Sup porting Code Source(s) Document(s ) Sodium 134 137 - Below low normal Sodium, Serum [facility] [Moles/volume] in mmol/L 145 Health Serum or Plasma mmol/L System Potassium 4.1 3.6 - Normal (applies Potassium, [facility] [Mass/volume] in mmol/L 5.0 to non-numeric Serum [facility] Serum or Plasma mmol/L results) System Chloride 104 98 - Normal (applies Chloride, [facility] [Moles/volume] in mmol/L 107 to non-numeric Serum Health Serum or Plasma mmol/L results) System Carbon dioxide, 22.0 22.0 - Normal (applies CO2, Serum [facility] total mmol/L 30.0 to non-numeric [facility] [Moles/volume] in mmol/L results) System Serum or Plasma Total Protein 6.0 6.3 - Below low normal Total Protein Ubaldo grace mg/dl 8.2 Health mg/dl System Glucose 185 65 - Above high Glucose, [facility] [Mass/volume] in mg/dL 105 normal Serum [facility] Serum or Plasma mg/dL System Urea nitrogen 14 7 - 18 Normal (applies Blood Urea [facility] [Mass/volume] in mg/dl mg/dl to non-numeric Nitrogen, Health Serum or Plasma results) Serum System Creatinine 1.30 0.70 - Above high Creatinine, [facility] [Mass/volume] in mg/dl 1.20 normal Serum Health Serum or Plasma mg/dl System Alkaline 91 38 - Normal (applies Alkaline [facility] phosphatase {IU/L} 126 to non-numeric Phosphatase, Health isoenzymes IU/L results) Serum System [Enzymatic activity/volume] in Serum or Plasma by Heat stability Bilirubin.total 0.2 0.2 - Normal (applies Bilirubin, [facility] [Mass/volume] in mg/dl 1.3 to non-numeric Serum Total [facility] Serum or Plasma mg/dl results) System Direct Bilirubin 0.1 0.0 - Normal (applies Direct [facility] mg/dl 0.4 to non-numeric Bilirubin [facility] mg/dl results) System Aspartate 35 5 - 40 Normal (applies Aspartate [facility] aminotransferase {IU/L} IU/L to non-numeric Transaminase, [facility] [Enzymatic results) Serum System activity/volume] in Serum or Plasma by With P-5'-P Albumin 3.1 3.9 - Below low normal Albumin, [facility] [Mass/volume] in {gm/dl} 5.0 Serum [facility] Serum or Plasma gm/dl System I. Phosphorus 3.7 2.5 - Normal (applies I. Phosphorus [facility] mg/dl 4.5 to non-numeric [facility] mg/dl results) System Alanine 41 7 - 56 Normal (applies Alanine [facility] aminotransferase {IU/L} IU/L to non-numeric Aminotransfer [facility] [Enzymatic results) ase, Serum System activity/volume] in Serum or Plasma Calcium 8.2 8.4 - Below low normal Calcium, [facility] [Mass/volume] in mg/dl 10.2 Total Serum Health Serum or Plasma mg/dl System A/G Ratio 1.07 Normal (applies A/G Ratio [facility] to non-numeric Health results) System Urate 3.8 2.5 - Normal (applies Uric Acid, [facility] [Mass/volume] in mg/dl 7.5 to non-numeric Serum Health Serum or Plasma mg/dl results) System Anion gap in Serum 8.00 8.00 - Normal (applies Anion Gap Ubaldo grace or Plasma mmol/L 12.00 to non-numeric Health mmol/L results) System Glomerular 41.66 Normal (applies GFR [facility] filtration to non-numeric Health rate/1.73 sq results) System M.predicted [Volume Rate/Area] in Serum or Plasma by Creatinine-based formula (CKD-EPI) eGFR will provide clinicians with a more accurate indicator of renal function then the serum creatinine. The eGFR is automa tically calculated from an empiric formula (endorsed by the [employer]) which incorporates age, sex, and race.Clinicians may notice surprisingly low GFR's with serum creatinine valueswithin normal range- particularly in elderly wo men (with low muscle mass).In the hospital setting, the eGFR should add an element of safety in drug dosing, in assessing the risk of IV contrast administration, and in assessing vascular risk.The NKF staging system is as follows:Normal: eGFR >90 with no kidney markersStage 1: eGFR >90 with kidney markers*Stage 2: eGFR 60- 89Stage 3: eGFR 30-59Stage 4: eGFR 15-29Stage 5: eGFR <15 (usually requir ing dialysis)*Markers include: Proteinuria, Hematuria, abnormal imaging-studies, or other blood or urine test abnormalities ID Date Data Source [id number] 08/01/2015 06:00:00 AM EDSebastian [facility]ar[facility] System Name Value Range Interpretation Description Data Sup porting Code Source(s) Document(s ) Leukocytes 5.0 4.8 - Normal (applies WBC Count [facility] [#/volume] in {10^3_uL 10.8 to non-numeric Health Unspecified } 10^3 uL results) System specimen by Automated count Erythrocytes 3.71 3.80 - Below low normal RBC Count [facility] [#/volume] in {10^6_uL 5.20 Health Blood by } 10^6 uL System Automated count Hemoglobin 10.7 12.0 - Below low normal Hemoglobin [facility] [Mass/volume] in {gm/dL} 16.0 Health Blood gm/dL System Hematocrit 30.6 % 36.0 - Below low normal Hematocrit [facility] [Volume 46.0 % Health Fraction] of System Blood Erythrocyte mean 82.5 fl 80.0 - Normal (applies MCV [facility] corpuscular 100.0 to non-numeric Health volume [Entitic fl results) System volume] by Automated count Erythrocyte mean 28.8 pg 26.0 - Normal (applies MCH [facility] corpuscular 34.0 pg to non-numeric Health hemoglobin results) System [Entitic mass] by Automated count Erythrocyte mean 35.0 33.0 - Normal (applies MCHC [facility] corpuscular {gm/dL} 37.0 to non-numeric Health hemoglobin gm/dL results) System concentration [Mass/volume] by Automated count Erythrocyte 12.7 % 11.5 - Normal (applies RDW-CV [facility] distribution 14.5 % to non-numeric Health width [Entitic results) System volume] by Automated count Platelets 143 130 - Normal (applies Platelet [facility] [#/volume] in {10^3_uL 400 to non-numeric Count Health Plasma by } 10^3 uL results) System Automated count Platelet mean 12.3 fl 7.4 - Above high MPV [facility] volume [Entitic 10.4 fl normal Health volume] in Blood System by Automated count Monocytes 0.2 0.3 - Below low normal Monocyte # [facility] [#/volume] in {10^3_uL 0.9 Health Blood by Manual } 10^3 uL System count Eosinophils 0.05 0.05 - Normal (applies Eosinophil # [facility] [#/volume] in {10^3_uL 0.30 to non-numeric Health Blood } 10^3 uL results) System Neutrophils 2.6 2.0 - Normal (applies Neutrophil # [facility] [#/volume] in {10^3_uL 8.1 to non-numeric Health Body fluid } 10^3 uL results) System Basophils 0.02 0.00 - Normal (applies Basophil # [facility] [#/volume] in {10^3_uL 0.10 to non-numeric Health Blood by } 10^3 uL results) System Automated count Lymphocyte # 2.1 1.0 - Normal (applies Lymphocyte # [facility] {10^3_uL 5.5 to non-numeric Health } 10^3 uL results) System Neutrophils/100 51.9 % 0.0 - Normal (applies Neutrophil % Ubal[facility] grace leukocytes in 120.0 % to non-numeric Health Blood by results) System Automated count Monocytes/100 4.8 % 6.0 - Below low normal Monocyte % [facility] leukocytes in 9.0 % Health Blood System Eosinophils/100 1.0 % 1.0 - Normal (applies Eosinophil % Ubaldo grace leukocytes in 3.0 % to non-numeric Health Unspecified results) System specimen Basophils/100 0.4 % 0.0 - Normal (applies Basophil % [facility] leukocytes in 1.0 % to non-numeric Health Unspecified results) System specimen by Manual count Lymphocytes 41.9 % 21.0 - Normal (applies Lymphocyte % [facility] [#/volume] in 51.0 % to non-numeric Health Blood by results) System Automated count ID Date Data Source [id number] 08/01/2015 06:00:00 AM EDT [facility] System Name Value Range Interpretation Description Data Sup porting Code Source(s) Document(s ) Sodium 134 137 - Below low normal Sodium, Serum [facility] [Moles/volume] in mmol/L 145 Health Serum or Plasma mmol/L System Potassium 4.2 3.6 - Normal (applies Potassium, [facility] [Mass/volume] in mmol/L 5.0 to non-numeric Serum [facility] Serum or Plasma mmol/L results) System Chloride 104 98 - Normal (applies Chloride, [facility] [Moles/volume] in mmol/L 107 to non-numeric Serum [facility] Serum or Plasma mmol/L results) System Carbon dioxide, 20.0 22.0 - Below low normal CO2, Serum [facility] total mmol/L 30.0 [facility] [Moles/volume] in mmol/L System Serum or Plasma Total Protein 6.3 6.3 - Normal (applies Total Protein [facility] mg/dl 8.2 to non-numeric [facility] mg/dl results) System Glucose 283 65 - Above high Glucose, [facility] [Mass/volume] in mg/dL 105 normal Serum [facility] Serum or Plasma mg/dL System Urea nitrogen 12 7 - 18 Normal (applies Blood Urea [facility] [Mass/volume] in mg/dl mg/dl to non-numeric Nitrogen, Health Serum or Plasma results) Serum System Creatinine 1.30 0.70 - Above high Creatinine, [facility] [Mass/volume] in mg/dl 1.20 normal Serum [facility] Serum or Plasma mg/dl System Alkaline 94 38 - Normal (applies Alkaline [facility] phosphatase {IU/L} 126 to non-numeric Phosphatase, Health isoenzymes IU/L results) Serum System [Enzymatic activity/volume] in Serum or Plasma by Heat stability Bilirubin.total 0.3 0.2 - Normal (applies Bilirubin, [facility] [Mass/volume] in mg/dl 1.3 to non-numeric Serum Total [facility] Serum or Plasma mg/dl results) System Direct Bilirubin 0.2 0.0 - Normal (applies Direct [facility] mg/dl 0.4 to non-numeric Bilirubin [facility] mg/dl results) System Aspartate 49 5 - 40 Above high Aspartate [facility] aminotransferase {IU/L} IU/L normal Transaminase, Health [Enzymatic Serum System activity/volume] in Serum or Plasma by With P-5'-P Albumin 3.1 3.9 - Below low normal Albumin, [facility] [Mass/volume] in {gm/dl} 5.0 Serum [facility] Serum or Plasma gm/dl System I. Phosphorus 2.9 2.5 - Normal (applies I. Phosphorus [facility] mg/dl 4.5 to non-numeric [facility] mg/dl results) System Alanine 54 7 - 56 Normal (applies Alanine [facility] aminotransferase {IU/L} IU/L to non-numeric Aminotransfer Heal th [Enzymatic results) ase, Serum System activity/volume] in Serum or Plasma Calcium 8.4 8.4 - Normal (applies Calcium, [facility] [Mass/volume] in mg/dl 10.2 to non-numeric Total Serum Health Serum or Plasma mg/dl results) System A/G Ratio 0.97 Normal (applies A/G Ratio [facility] to non-numeric Health results) System Urate 4.6 2.5 - Normal (applies Uric Acid, [facility] [Mass/volume] in mg/dl 7.5 to non-numeric Serum Health Serum or Plasma mg/dl results) System Anion gap in Serum 10.00 8.00 - Normal (applies Anion Gap Ubal[facility] grace or Plasma mmol/L 12.00 to non-numeric Health mmol/L results) System Glomerular 41.66 Normal (applies GFR [facility] filtration to non-numeric Health rate/1.73 sq results) System M.predicted [Volume Rate/Area] in Serum or Plasma by Creatinine-based formula (CKD-EPI) eGFR will provide clinicians with a more accurate indicator of renal function then the serum creatinine. The eGFR is automa tically calculated from an empiric formula (endorsed by the [employer]) which incorporates age, sex, and race.Clinicians may notice surprisingly low GFR's with serum creatinine valueswithin normal range- particularly in elderly wo men (with low muscle mass).In the hospital setting, the eGFR should add an element of safety in drug dosing, in assessing the risk of IV contrast administration, and in assessing vascular risk.The NKF staging system is as follows:Normal: eGFR >90 with no kidney markersStage 1: eGFR >90 with kidney markers*Stage 2: eGFR 60- 89Stage 3: eGFR 30-59Stage 4: eGFR 15-29Stage 5: eGFR <15 (usually requir ing dialysis)*Markers include: Proteinuria, Hematuria, abnormal imaging-studies, or other blood or urine test abnormalities ID Date Data Source [id number] 07/31/2015 05:28:00 PM EDT [facility] System Name Value Range Interpretation Description Data Sup porting Code Source(s) Document(s ) Sodium 132 137 - Below low normal Sodium, Serum [facility] [Moles/volume] in mmol/L 145 Health Serum or Plasma mmol/L System Potassium 4.1 3.6 - Normal (applies Potassium, [facility] [Mass/volume] in mmol/L 5.0 to non-numeric Serum Health Serum or Plasma mmol/L results) System Chloride 102 98 - Normal (applies Chloride, [facility] [Moles/volume] in mmol/L 107 to non-numeric Serum Health Serum or Plasma mmol/L results) System Carbon dioxide, 21.0 22.0 - Below low normal CO2, Serum [facility] total mmol/L 30.0 Health [Moles/volume] in mmol/L System Serum or Plasma Total Protein 6.6 6.3 - Normal (applies Total Protein [facility] mg/dl 8.2 to non-numeric Health mg/dl results) System Glucose 210 65 - Above high Glucose, [facility] [Mass/volume] in mg/dL 105 normal Serum [facility] Serum or Plasma mg/dL System Urea nitrogen 10 7 - 18 Normal (applies Blood Urea [facility] [Mass/volume] in mg/dl mg/dl to non-numeric Nitrogen, Health Serum or Plasma results) Serum System Creatinine 1.38 0.70 - Above high Creatinine, [facility] [Mass/volume] in mg/dl 1.20 normal Serum Health Serum or Plasma mg/dl System Alkaline 104 38 - Normal (applies Alkaline [facility] phosphatase {IU/L} 126 to non-numeric Phosphatase, Health isoenzymes IU/L results) Serum System [Enzymatic activity/volume] in Serum or Plasma by Heat stability Bilirubin.total 0.3 0.2 - Normal (applies Bilirubin, [facility] [Mass/volume] in mg/dl 1.3 to non-numeric Serum Total [facility] Serum or Plasma mg/dl results) System Direct Bilirubin 0.1 0.0 - Normal (applies Direct [facility] mg/dl 0.4 to non-numeric Bilirubin Health mg/dl results) System Aspartate 59 5 - 40 Above high Aspartate [facility] aminotransferase {IU/L} IU/L normal Transaminase, Health [Enzymatic Serum System activity/volume] in Serum or Plasma by With P-5'-P Albumin 3.2 3.9 - Below low normal Albumin, [facility] [Mass/volume] in {gm/dl} 5.0 Serum Health Serum or Plasma gm/dl System I. Phosphorus 2.0 2.5 - Below low normal I. Phosphorus Ubal[facility] grace mg/dl 4.5 Health mg/dl System Alanine 64 7 - 56 Above high Alanine [facility] aminotransferase {IU/L} IU/L normal Aminotransfer Health [Enzymatic ase, Serum System activity/volume] in Serum or Plasma Calcium 8.4 8.4 - Normal (applies Calcium, [facility] [Mass/volume] in mg/dl 10.2 to non-numeric Total Serum Health Serum or Plasma mg/dl results) System A/G Ratio 0.94 Normal (applies A/G Ratio [facility] to non-numeric Health results) System Urate 5.1 2.5 - Normal (applies Uric Acid, [facility] [Mass/volume] in mg/dl 7.5 to non-numeric Serum Health Serum or Plasma mg/dl results) System Anion gap in Serum 9.00 8.00 - Normal (applies Anion Gap [facility] grace or Plasma mmol/L 12.00 to non-numeric Health mmol/L results) System Glomerular 38.89 Normal (applies GFR [facility] filtration to non-numeric Health rate/1.73 sq results) System M.predicted [Volume Rate/Area] in Serum or Plasma by Creatinine-based formula (CKD-EPI) eGFR will provide clinicians with a more accurate indicator of renal function then the serum creatinine. The eGFR is automa tically calculated from an empiric formula (endorsed by the [employer]) which incorporates age, sex, and race.Clinicians may notice surprisingly low GFR's with serum creatinine valueswithin normal range- particularly in elderly wo men (with low muscle mass).In the hospital setting, the eGFR should add an element of safety in drug dosing, in assessing the risk of IV contrast administration, and in assessing vascular risk.The NKF staging system is as follows:Normal: eGFR >90 with no kidney markersStage 1: eGFR >90 with kidney markers*Stage 2: eGFR 60- 89Stage 3: eGFR 30-59Stage 4: eGFR 15-29Stage 5: eGFR <15 (usually requir ing dialysis)*Markers include: Proteinuria, Hematuria, abnormal imaging-studies, or other blood or urine test abnormalities ID Date Data Source [id number] 07/31/2015 10:34:00 AM EDT [facility] System Name Value Range Interpretation Description Data Sup porting Code Source(s) Document(s ) Magnesium 1.4 1.7 - Below low normal Magnesium, [facility] [Mass/volume {mEq/L} 2.2 Serum Health System ] in Serum mEq/L or Plasma ID Date Data Source [id number] 07/31/2015 09:37:00 AM EDT [facility] System Name Value Range Interpretation Description Data Sup porting Code Source(s) Document(s ) Sodium 129 137 - Below lower panic Sodium, Serum [facility] [Moles/vol mmol/L 145 limits Health System ume] in mmol/L Serum or Plasma Result Reporting|Telephone|PO RN| 016 at 11:03 AMCalled to:PO HASMUKHTech Name:MBReadback by: 07/31/2015 / 11:03 AM Potassium 3.7 mmol/L 3.6 - 5.0 Normal (applies Potassium, [facility] [Mass/volume] in mmol/L to non-numeric Serum Health S ystem Serum or Plasma results) Chloride 100 mmol/L 98 - 107 Normal (applies Chloride, [facility] [Moles/volume] in mmol/L to non-numeric Serum Health System Serum or Plasma results) Carbon dioxide, 18.0 mmol/L 22.0 - 30.0 Below low CO2, Serum [facility] total mmol/L normal Health System [Moles/volume] in Serum or Plasma Total Protein 7.6 mg/dl 6.3 - 8.2 Normal (applies Total Protein [facility] mg/dl to non-numeric Health System results) Glucose 502 mg/dL 65 - 105 Above upper Glucose, Serum [facility] [Mass/volume] in mg/dL panic limits Health Sys tem Serum or Plasma Result Reporting|Telephone|CHRISTAL DOZIER| 016 at 11:03 AMCalled to:CHRISTAL Mera Name:MBReadback by: 07/31/2015 / 11:03 AM Urea nitrogen 11 mg/dl 7 - 18 Normal (applies Blood Urea [facility] [Mass/volume] in mg/dl to non-numeric Nitrogen, Health S ystem Serum or Plasma results) Serum Creatinine 1.70 mg/dl 0.70 - Above high Creatinine, [facility] [Mass/volume] in 1.20 normal Serum Health System Serum or Plasma mg/dl Alkaline phosphatase 120 {IU/L} 38 - 126 Normal (applies Alkaline [facility] isoenzymes [Enzymatic IU/L to non-numeric Phosphatase, [facility] activity/volume] in results) Serum Serum or Plasma by Heat stability Bilirubin.total 0.5 mg/dl 0.2 - 1.3 Normal (applies Bilirubin, [facility] [Mass/volume] in mg/dl to non-numeric Serum Total [facility] Serum or Plasma results) Direct Bilirubin 0.2 mg/dl 0.0 - 0.4 Normal (applies Direct [facility] mg/dl to non-numeric Bilirubin [facility] results) Aspartate 77 {IU/L} 5 - 40 Above high Aspartate [facility] aminotransferase IU/L normal Transaminase, Health Sy stem [Enzymatic Serum activity/volume] in Serum or Plasma by With P-5'-P Albumin [Mass/volume] 3.8 3.9 - 5.0 Below low Albumin, Serum [facility] in Serum or Plasma {gm/dl} gm/dl normal Health Syst em I. Phosphorus 2.5 mg/dl 2.5 - 4.5 Normal (applies I. Phosphorus [facility] mg/dl to non-numeric [facility] System results) Alanine 77 {IU/L} 7 - 56 Above high Alanine [facility] aminotransferase IU/L normal Aminotransfera [facility] S ystem [Enzymatic se, Serum activity/volume] in Serum or Plasma Calcium [Mass/volume] 8.4 mg/dl 8.4 - Normal (applies Calcium, Tot al [facility] in Serum or Plasma 10.2 to non-numeric Serum [facility] System mg/dl results) A/G Ratio 1.00 Normal (applies A/G Ratio [facility] to non-numeric [facility] results) Urate [Mass/volume] 4.7 mg/dl 2.5 - 7.5 Normal (applies Uric Acid, [facility] in Serum or Plasma mg/dl to non-numeric Serum [facility] results) Anion gap in Serum or 11.00 8.00 - Normal (applies Anion Gap [facility] Plasma mmol/L 12.00 to non-numeric Health System mmol/L results) Glomerular filtration 30.57 Normal (applies GFR [facility] rate/1.73 sq to non-numeric Health Syste m M.predicted [Volume results) Rate/Area] in Serum or Plasma by Creatinine-based formula (CKD-EPI) eGFR will provide clinicians with a more accurate indicator of renal function then the serum creatinine. The eGFR is automa tically calculated from an empiric formula (endorsed by the National Kid[employer] ion) which incorporates age, sex, and race.Clinicians may notice surprisingly low GFR's with serum creatinine valueswithin normal range- particularly in elderly wo men (with low muscle mass).In the hospital setting, the eGFR should add an element of safety in drug dosing, in assessing the risk of IV contrast administration, and in assessing vascular risk.The NKF staging system is as follows:Normal: eGFR >90 with no kidney markersStage 1: eGFR >90 with kidney markers*Stage 2: eGFR 60- 89Stage 3: eGFR 30-59Stage 4: eGFR 15-29Stage 5: eGFR <15 (usually requir ing dialysis)*Markers include: Proteinuria, Hematuria, abnormal imaging-studies, or other blood or urine test abnormalities ID Date Data Source [id number] 07/31/2015 05:34:00 AM EDT [facility] Name Value Range Interpretation Description Data Sup porting Code Source(s) Document(s ) Hepatitis C <15 Not Normal (applies Hepatitis C [facility] Viral RNA Detected to non-numeric Viral RNA Health results) System Hepatitis C <1.18 Not Normal (applies Hepatitis C [facility] Viral RNA DetectedThe to non-numeric Viral RNA Health Quantitative analytical results) Quantitative System performance characteristics of thisassay have been determined by [facility].The modifications have not been cleared or approved bythe FDA. This assay has been validated pursuant to theIA regulations and is used for clinical purposes.This test was performed using the CLAIR(R)AmpliPr ep/CLAIR(R)TaqM an(R)HCV Test, v2.0.For more information on this test, go to:http://educa tion.[employer]/faq/ [email or web address](This link is being provided for informational/e ducational purposes only.)Test Performed at:[facility], [place], [place] [address]Alvaro Cuba M.D. ID Date Data Source [id number] 07/31/2015 05:34:00 AM EDT [facility] Name Value Range Interpretation Description Data Sup porting Code Source(s) Document(s ) Triglyceride 148 35 - 135 Above high Triglycerides [facility] [Mass/volume] mg/dl mg/dl normal , Serum Health in Serum or System Plasma Optimal = < 100 mg/dLBoderline High = 15 0 - 199 mg/dLHigh = 200 - 499 mg/dLVery High = > 500 mg/dL Cholesterol 148 mg/dl *.* mg/dl Normal (applies Cholesterol, [facility] [Mass/volume] in to non-numeric Serum Health S ystem Serum or Plasma results) <200 mg/dL = [id number] - 239 md/dL = Borderline>240 mg/dL = High Risk Cholesterol in HDL 32.0 mg/dL 32.0 - Normal (applies HDL Choleste rol, [facility] [Mass/volume] in 75.0 mg/dL to non-numeric Serum Health System Serum or Plasma results) Cholesterol in LDL 86.4 mg/dL Normal (applies Low Density [facility] [Mass/volume] in to non-numeric Lipoprotein, Healt h System Serum or Plasma results) Calculated OPTIMAL: LESS THAN 100 mg/dLNEAR OPTIMAL : 100 - 129 mg/dLBODERLINE HIGH: 130 - 150 mg/dL Cholesterol in VLDL 29.6 Normal (applies to VLDL, Serum [facility] [Mass/volume] in non-numeric System Serum or Plasma results) CHD Risk 4.63 2.40 - Normal (applies to CHD Risk [facility] 5.30 non-numeric System results) ID Date Data Source [id number] 07/31/2015 05:34:00 AM EDT [facility] Name Value Range Interpretation Code Description Data Nyla rce(s) Supporting Document(s ) HbA1C 21.9 % 4.6 - 6.2 Above high normal HbA1C [facility] % [facility] ID Date Data Source [id number] 07/31/2015 05:34:00 AM EDT [facility] Name Value Range Interpretation Description Data Sup porting Code Source(s) Document(s ) Sodium 135 137 - Below low normal Sodium, Serum [facility] [Moles/volume] in mmol/L 145 Health Serum or Plasma mmol/L System Potassium 3.6 3.6 - Normal (applies Potassium, [facility] [Mass/volume] in mmol/L 5.0 to non-numeric Serum Health Serum or Plasma mmol/L results) System Chloride 100 98 - Normal (applies Chloride, [facility] [Moles/volume] in mmol/L 107 to non-numeric Serum Health Serum or Plasma mmol/L results) System Carbon dioxide, 25.0 22.0 - Normal (applies CO2, Serum [facility] total mmol/L 30.0 to non-numeric Health [Moles/volume] in mmol/L results) System Serum or Plasma Total Protein 7.8 6.3 - Normal (applies Total Protein [facility] mg/dl 8.2 to non-numeric Health mg/dl results) System Glucose 190 65 - Above high Glucose, [facility] [Mass/volume] in mg/dL 105 normal Serum Health Serum or Plasma mg/dL System Urea nitrogen 10 7 - 18 Normal (applies Blood Urea [facility] [Mass/volume] in mg/dl mg/dl to non-numeric Nitrogen, Health Serum or Plasma results) Serum System Creatinine 1.58 0.70 - Above high Creatinine, [facility] [Mass/volume] in mg/dl 1.20 normal Serum Health Serum or Plasma mg/dl System Alkaline 126 38 - Normal (applies Alkaline [facility] phosphatase {IU/L} 126 to non-numeric Phosphatase, Health isoenzymes IU/L results) Serum System [Enzymatic activity/volume] in Serum or Plasma by Heat stability Bilirubin.total 0.4 0.2 - Normal (applies Bilirubin, [facility] [Mass/volume] in mg/dl 1.3 to non-numeric Serum Total Health Serum or Plasma mg/dl results) System Direct Bilirubin 0.2 0.0 - Normal (applies Direct [facility] mg/dl 0.4 to non-numeric Bilirubin Health mg/dl results) System Aspartate 102 5 - 40 Above high Aspartate [facility] aminotransferase {IU/L} IU/L normal Transaminase, Health [Enzymatic Serum System activity/volume] in Serum or Plasma by With P-5'-P Albumin 3.9 3.9 - Normal (applies Albumin, [facility] [Mass/volume] in {gm/dl} 5.0 to non-numeric Serum Health Serum or Plasma gm/dl results) System I. Phosphorus 2.7 2.5 - Normal (applies I. Phosphorus [facility] mg/dl 4.5 to non-numeric Health mg/dl results) System Alanine 90 7 - 56 Above high Alanine [facility] aminotransferase {IU/L} IU/L normal Aminotransfer Health [Enzymatic ase, Serum System activity/volume] in Serum or Plasma Calcium 8.8 8.4 - Normal (applies Calcium, [facility] [Mass/volume] in mg/dl 10.2 to non-numeric Total Serum Health Serum or Plasma mg/dl results) System A/G Ratio 1.00 Normal (applies A/G Ratio [facility] to non-numeric Health results) System Urate 6.2 2.5 - Normal (applies Uric Acid, [facility] [Mass/volume] in mg/dl 7.5 to non-numeric Serum Health Serum or Plasma mg/dl results) System Anion gap in Serum 10.00 8.00 - Normal (applies Anion Gap [facility] or Plasma mmol/L 12.00 to non-numeric Health mmol/L results) System Glomerular 33.26 Normal (applies GFR [facility] filtration to non-numeric Health rate/1.73 sq results) System M.predicted [Volume Rate/Area] in Serum or Plasma by Creatinine-based formula (CKD-EPI) eGFR will provide clinicians with a more accurate indicator of renal function then the serum creatinine. The eGFR is automa tically calculated from an empiric formula (endorsed by the National Kidney [employer] ion) which incorporates age, sex, and race.Clinicians may notice surprisingly low GFR's with serum creatinine valueswithin normal range- particularly in elderly wo men (with low muscle mass).In the hospital setting, the eGFR should add an element of safety in drug dosing, in assessing the risk of IV contrast administration, and in assessing vascular risk.The NKF staging system is as follows:Normal: eGFR >90 with no kidney markersStage 1: eGFR >90 with kidney markers*Stage 2: eGFR 60- 89Stage 3: eGFR 30-59Stage 4: eGFR 15-29Stage 5: eGFR <15 (usually requir ing dialysis)*Markers include: Proteinuria, Hematuria, abnormal imaging-studies, or other blood or urine test abnormalities ID Date Data Source [id number] 07/31/2015 05:34:00 AM EDT [facility] Name Value Range Interpretation Description Data Sup porting Code Source(s) Document(s ) Alcohol < 10.0 Normal (applies to Alcohol Ethyl, [facility] Ethyl, non-numeric Blood Health System Blood results) None Detected ID Date Data Source [id number] 07/31/2015 12:37:00 AM EDT [facility] Name Value Range Interpretation Description Data Sup porting Code Source(s) Document(s ) Sodium 131 137 - Below low normal Sodium, Serum [facility] [Moles/volume mmol/L 145 Health ] in Serum or mmol/L System Plasma Potassium 3.2 3.6 - Below low normal Potassium, [facility] [Mass/volume] mmol/L 5.0 Serum Health in Serum or mmol/L System Plasma Chloride 95 98 - 107 Below low normal Chloride, [facility] [Moles/volume mmol/L mmol/L Serum Health ] in Serum or System Plasma Carbon 22.0 22.0 - Normal (applies CO2, Serum [facility] dioxide, mmol/L 30.0 to non-numeric Health total mmol/L results) System [Moles/volume ] in Serum or Plasma Glucose 354 65 - 105 Above high normal Glucose, Serum [facility] [Mass/volume] mg/dL mg/dL Health in Serum or System Plasma Urea nitrogen 10 mg/dl 7 - 18 Normal (applies Blood Urea [facility] [Mass/volume] mg/dl to non-numeric Nitrogen, Health in Serum or results) Serum System Plasma Creatinine 1.59 0.70 - Above high normal Creatinine, [facility] [Mass/volume] mg/dl 1.20 Serum Health in Serum or mg/dl System Plasma Calcium 9.1 8.4 - Normal (applies Calcium, Total [facility] [Mass/volume] mg/dl 10.2 to non-numeric Serum Health in Serum or mg/dl results) System Plasma Anion gap in 14.00 8.00 - Above high normal Anion Gap [facility] Serum or mmol/L 12.00 Health Plasma mmol/L System ID Date Data Source [id number] 07/31/2015 12:37:00 AM EDT [facility] Name Value Range Interpretation Description Data Sup porting Code Source(s) Document(s ) Amphetamine Negative Negative Normal (applies Amphetamine [facility] [Mass/volume] ng/ml to non-numeric Level, Urine Health in Urine results) System Cut-off = 1000 ng/mL Barbiturates Negative Negative Normal (applies Barbiturate [facility] [Mass/volume] in ng/ml to non-numeric Screen, Urine [facility] Urine by Screen results) method Cut-off = 200 ng/mL Benzodiazepines Negative Negative Normal Benzodiazepines, [facility] [Mass/volume] in ng/mL (applies to Urine Health Urine non-numeric System results) Cut-off = 200 ng/mL Cocaine Negative Negative Normal (applies Cocaine [facility] metabolites.other ng/ml to non-numeric Metabolite Health System [Mass/volume] in results) Screen, Urine Urine Cut-off = 300 ng/mL Methadone Negative Negative Normal (applies Methadone [facility] [Mass/volume] in to non-numeric Level, Urine Healt h System Urine results) Cut-off = 300 ng/mL Opiate 300, Negative Negative ng/ml Normal (applies to Opiate 300, [facility] Urine non-numeric Urine Health System results) Cut-off = 300 ng/mL Phencyclidine Negative Negative Normal (applies Phencyclidine, [facility] [Mass/volume] in ng/ml to non-numeric Urine Health S yste Urine results) Cut-off = 25 ng/mL THC Negative Negative ng/mL Normal [facility]) Cutt-off = 50These results are for medic al treatment only. The positive findings are unconfirmed. Request confirmatory/quanti tative test if needed. ID Date Data Source [id number] 07/30/2015 10:41:00 PM EDT [facility] Name Value Range Interpretation Description Data Sup porting Code Source(s) Document(s ) pH 7.382 7.380 - Normal (applies pH [facility] {pH_unit 7.460 pH to non-numeric Health s} units results) System Carbon dioxide 42.3 32.0 - Normal (applies pCO2, [facility] [Partial {mm_Hg} 46.0 mm to non-numeric Arterial Health pressure] in Hg results) System Arterial blood Oxygen 22.7 74.0 - Below lower panic pO2, Aterial [facility] [Partial {mm_Hg} 108.0 mm limits Health pressure] in Hg System Arterial blood Base Excess. -0.6 -3.0 - Normal (applies Base Excess. [facility] mmol/L 3.0 to non-numeric Health mmol/L results) System Bicarbonate 24.6 20.0 - Normal (applies HCO3 [facility] [Moles/volume] mmol/L 26.0 to non-numeric Health in Venous mmol/L results) System blood TCO2 25.9 24.0 - Normal (applies TCO2 [facility] mmol/L 30.0 to non-numeric Health mmol/L results) System O2 Saturation 43.1 % 92.0 - Below low normal O2 Saturation [facility] 96.0 % Health System Ionized 1.10 Normal (applies Ionized [facility] Calcium mmol/L to non-numeric Calcium Health results) System Sodium, WB 127 Normal (applies Sodium, WB [facility] mmol/L to non-numeric Health results) System Potassium, WB 3.6 Normal (applies Potassium, WB [facility] mmol/L to non-numeric Health results) System Chloride, WB 90 Normal (applies Chloride, WB [facility] mmol/L to non-numeric Health results) System Glucose, WB 689 Normal (applies Glucose, WB [facility] mg/dL to non-numeric Health results) System ID Date Data Source [id number] 07/30/2015 09:57:00 PM EDT [facility] Name Value Range Interpretation Description Data Sup porting Code Source(s) Document(s ) Acetone, Negative Negative Normal (applies Acetone, [facility] Serum to non-numeric Serum Health Qualitative results) Qualitative System ID Date Data Source [id number] 07/30/2015 07:27:00 PM EDT [facility] Name Value Range Interpretation Description Data Sup porting Code Source(s) Document(s ) Color YELLOW Yellow Normal (applies Color [facility] to non-numeric Health results) System Appearance of CLEAR Clear Normal (applies Urine [facility] Urine to non-numeric Appearance Health results) System Specific < =1.005 Normal (applies Urine Specific [facility] gravity of to non-numeric [facility] Urine results) System pH.. 6.0 4.6 - 8.0 Normal (applies pH.. [facility] {pH_units} pH units to non-numeric Health results) System Glucose, UA > =1000 < 50 Normal (applies Glucose, UA [facility] mg/dl to non-numeric Health results) System Protein NEGATIVE < 30 Normal (applies Protein [facility] [Mass/volume] mg/dl to non-numeric Health in Serum or results) System Plasma Bilirubin NEGATIVE Negative Normal (applies Bilirubin [facility] Urine Sm to Lg to non-numeric Urine Health results) System Urobilinogen 0.2 mg/dL Normal (applies Urobilinogen [facility] [Mass/volume] to non-numeric UA Health in Urine results) System Ketones NEGATIVE Negative Normal (applies Ketones UA [facility] [Mass/volume] Tr to Lg to non-numeric Health in Urine results) System Nitrate+Nitrit POSITIVE Negative Abnormal Nitrite [facility] e Neg/Pos (applies to Health [Mass/volume] non-numeric System in Unspecified results) specimen Leukocyte NEGATIVE Negative Normal (applies Leukocyte [facility] esterase Tr to Lg to non-numeric Esterase Health [Units/volume] results) Concentration System in Urine Leukocytes 0-2 0 - 2 Normal (applies White Blood [facility] [#/volume] in /HPF to non-numeric Cells Health Unspecified results) System specimen by Automated count Red Blood 0-2 0 - 1 Normal (applies Red Blood [facility] Cells /HPF to non-numeric Cells Health results) System Urine Blood TRACE-INTA Normal (applies Urine Blood [facility] to non-numeric Health results) System ID Date Data Source [id number] 07/30/2015 07:27:00 PM EDT [facility] Name Value Range Interpretation Description Data Sup porting Code Source(s) Document(s ) Leukocytes 4.5 4.8 - Below low normal WBC Count [facility] [#/volume] in {10^3_uL 10.8 Health System Unspecified } 10^3 uL specimen by Automated count Previously released as 4.3 on 07/30/2015, 10:04 PM by [id number] - Erythrocytes 3.71 {10^6_uL} 3.80 - 5.20 Below low RBC Count [facility] [#/volume] in Blood 10^6 uL normal Health Sys tem by Automated count Previously released as 3.67 on 07/30/2015 , 10:04 PM by [id number] - Hemoglobin 10.8 {gm/dL} 12.0 - 16.0 Below low Hemoglobin [facility] [Mass/volume] in gm/dL normal [facility] Blood Previously released as 12.3 on 07/30/2015 , 10:04 PM by [id number] - Hematocrit [Volume 30.9 % 36.0 - 46.0 % Below low Hematocrit [facility] Fraction] of Blood normal System Previously released as 31.5 on 07/30/2015 , 10:04 PM by [id number] - Erythrocyte mean 83.3 fl 80.0 - 100.0 Normal (applies to MCV [facility] corpuscular volume fl non-numeric System [Entitic volume] by results) Automated count Previously released as 87.3 on 07/30/2015 , 10:04 PM by [id number] - Erythrocyte mean 29.1 pg 26.0 - 34.0 Normal (applies to MCH [facility] corpuscular pg non-numeric results) System hemoglobin [Entitic mass] by Automated count Previously released as 34.1 on 07/30/2015 , 10:04 PM by [id number] - Erythrocyte mean 35.0 {gm/dL} 33.0 - 37.0 Normal (applies MCHC [facility] corpuscular gm/dL to non-numeric Health System hemoglobin results) concentration [Mass/volume] by Automated count Previously released as 39.0 on 07/30/2015 , 10:04 PM by [id number] - Erythrocyte 12.9 % 11.5 - 14.5 Normal (applies to RDW-CV [facility] distribution width % non-numeric System [Entitic volume] by results) Automated count Previously released as 13.0 on 07/30/2015 , 10:04 PM by [id number] - Platelets 164 {10^3_uL} 130 - 400 Normal (applies Platelet [facility] [#/volume] in 10^3 uL to non-numeric Count Health Syst em Plasma by results) Automated count Previously released as 147 on 07/30/2015, 10:04 PM by [id number] - Platelet mean volume 12.7 fl 7.4 - 10.4 fl Above high normal MPV [facility] [Entitic volume] in System Blood by Automated count Previously released as 12.0 on 07/30/2015 , 10:04 PM by [id number] - Monocytes 0.2 {10^3_uL} 0.3 - 0.9 Below low Monocyte # [facility] [#/volume] in 10^3 uL normal System Blood by Manual count Previously released as 0.1 on 07/30/2015, 10:04 PM by [id number] - Eosinophils 0.02 {10^3_uL} 0.05 - Below low Eosinophil # [facility] [#/volume] in 0.30 10^3 normal Health System Blood uL Previously released as 0.01 on 07/30/2015 , 10:04 PM by [id number] - Basophils 0.01 {10^3_uL} 0.00 - Normal (applies Basophil # [facility] [#/volume] in 0.10 10^3 to non-numeric Health Syst em Blood by uL results) Automated count Neutrophils 3.0 {10^3_uL} 2.0 - 8.1 Normal (applies Neutrophil # [facility] [#/volume] in 10^3 uL to non-numeric Health Syst em Body fluid results) Previously released as 3.0 on 07/30/2015, 10:04 PM by [id number] - Lymphocyte # 1.4 {10^3_uL} 1.0 - 5.5 Normal (applies Lymphocyte # [facility] 10^3 uL to non-numeric Health System results) Previously released as 1.3 on 07/30/2015, 10:04 PM by [id number] - Neutrophils/100 65.9 % 0.0 - 120.0 Normal (applies Neutrophil % [facility] leukocytes in Blood % to non-numeric Healt h System by Automated count results) Previously released as 68.0 on 07/30/2015 , 10:04 PM by [id number] - Monocytes/100 3.5 % 6.0 - 9.0 % Below low Monocyte % [facility] leukocytes in Blood normal System Previously released as 1.4 on 07/30/2015, 10:04 PM by [id number] - Eosinophils/100 0.4 % 1.0 - 3.0 % Below low Eosinophil % [facility] leukocytes in normal System Unspecified specimen Previously released as 0.2 on 07/30/2015, 10:04 PM by [id number] - Basophils/100 0.2 % 0.0 - 1.0 Normal (applies Basophil % [facility] leukocytes in % to non-numeric Health Syst em Unspecified specimen results) by Manual count Lymphocytes 30.0 % 21.0 - Normal (applies Lymphocyte % [facility] [#/volume] in Blood 51.0 % to non-numeric Healt h System by Automated count results) Previously released as 30.2 on 07/30/2015 , 10:04 PM by [id number] - ID Date Data Source [id number] 07/30/2015 07:27:00 PM EDT [facility] Name Value Range Interpretation Description Data Sup porting Code Source(s) Document(s ) Sodium 118 137 - Below lower panic Sodium, Serum [facility] [Moles/vol mmol/L 145 limits Health System ume] in mmol/L Serum or Plasma Result Reporting|Telephone|jovany| 016 at 9:33 PMCalled to:Melonie Name:[email or web address] by:[email or web address] 07/30/2015 / 9:33 PMResult Reporting|Telephone|jovany| 07/30/2015 at 9:34 PMCalled to:Melonie Name:[email or web address] by:jovany 07/30/2015 / 9:33 PM Potassium 4.2 mmol/L 3.6 - 5.0 Normal (applies Potassium, [facility] [Mass/volume] in mmol/L to non-numeric Serum Health S ystem Serum or Plasma results) Chloride 84 mmol/L 98 - 107 Below low Chloride, [facility] [Moles/volume] in mmol/L normal Serum Health Syste m Serum or Plasma Carbon dioxide, 18.0 mmol/L 22.0 - 30.0 Below low CO2, Serum [facility] total mmol/L normal Health System [Moles/volume] in Serum or Plasma Total Protein 8.0 mg/dl 6.3 - 8.2 Normal (applies Total Protein [facility] mg/dl to non-numeric Health System results) Glucose 1140 mg/dL 65 - 105 Above upper Glucose, Serum [facility] [Mass/volume] in mg/dL panic limits Health Sys tem Serum or Plasma Result Reporting|Telephone|jovany| 016 at 9:34 PMCalled to:Melonie Name:[email or web address] by:jovany 07/30/2015 / 9:33 PM Urea nitrogen 10 mg/dl 7 - 18 Normal (applies Blood Urea [facility] [Mass/volume] in mg/dl to non-numeric Nitrogen, Health S ystem Serum or Plasma results) Serum Creatinine 2.14 mg/dl 0.70 - Above high Creatinine, [facility] [Mass/volume] in 1.20 normal Serum Health System Serum or Plasma mg/dl Alkaline phosphatase 156 {IU/L} 38 - 126 Above high Alkaline [facility] isoenzymes [Enzymatic IU/L normal Phosphatase, Healt h System activity/volume] in Serum Serum or Plasma by Heat stability Bilirubin.total 0.3 mg/dl 0.2 - 1.3 Normal (applies Bilirubin, [facility] [Mass/volume] in mg/dl to non-numeric Serum Total Health System Serum or Plasma results) Direct Bilirubin 0.2 mg/dl 0.0 - 0.4 Normal (applies Direct [facility] mg/dl to non-numeric Bilirubin Health System results) Aspartate 103 {IU/L} 5 - 40 Above high Aspartate [facility] aminotransferase IU/L normal Transaminase, Health Sy stem [Enzymatic Serum activity/volume] in Serum or Plasma by With P-5'-P Albumin [Mass/volume] 4.0 3.9 - 5.0 Normal (applies Albumin, Ser um [facility] in Serum or Plasma {gm/dl} gm/dl to non-numeric Health System results) I. Phosphorus 2.5 mg/dl 2.5 - 4.5 Normal (applies I. Phosphorus [facility] mg/dl to non-numeric Health System results) Alanine 97 {IU/L} 7 - 56 Above high Alanine [facility] aminotransferase IU/L normal Aminotransfera Health S ystem [Enzymatic se, Serum activity/volume] in Serum or Plasma Calcium [Mass/volume] 8.7 mg/dl 8.4 - Normal (applies Calcium, Tot al [facility] in Serum or Plasma 10.2 to non-numeric Serum Health System mg/dl results) A/G Ratio 1.00 Normal (applies A/G Ratio [facility] to non-numeric Health System results) Urate [Mass/volume] 6.9 mg/dl 2.5 - 7.5 Normal (applies Uric Acid, [facility] in Serum or Plasma mg/dl to non-numeric [facility] results) Anion gap in Serum or 16.00 8.00 - Above high Anion Gap [facility] Plasma mmol/L 12.00 normal [facility] mmol/L Glomerular filtration 23.44 Normal (applies GFR [facility] rate/1.73 sq to non-numeric Health Syste m M.predicted [Volume results) Rate/Area] in Serum or Plasma by Creatinine-based formula (CKD-EPI) eGFR will provide clinicians with a more accurate indicator of renal function then the serum creatinine. The eGFR is automa tically calculated from an empiric formula (endorsed by the [employer]) which incorporates age, sex, and race.Clinicians may notice surprisingly low GFR's with serum creatinine valueswithin normal range- particularly in elderly wo men (with low muscle mass).In the hospital setting, the eGFR should add an element of safety in drug dosing, in assessing the risk of IV contrast administration, and in assessing vascular risk.The NKF staging system is as follows:Normal: eGFR >90 with no kidney markersStage 1: eGFR >90 with kidney markers*Stage 2: eGFR 60- 89Stage 3: eGFR 30-59Stage 4: eGFR 15-29Stage 5: eGFR <15 (usually requir ing dialysis)*Markers include: Proteinuria, Hematuria, abnormal imaging-studies, or other blood or urine test abnormalities ID Date Data Source [id number] 07/30/2015 07:27:00 PM EDT [facility] Name Value Range Interpretation Description Data Sup porting Code Source(s) Document(s ) Lipase 40 U/L 8 - 78 Normal (applies to Lipase, Serum [facility] [Enzymatic U/L non-numeric [facility] activity/v results) olume] in Serum or Plasma ID Date Data Source [id number] 07/30/2015 07:27:00 PM EDT [facility] Name Value Range Interpretation Description Data Sup porting Code Source(s) Document(s ) Amylase 133 30 - 110 Above high normal Amylase, Serum [facility] [Enzymatic {IU/L} IU/L [facility] activity/vo lume] in Serum or Plasma ID Date Data Source [id number] 04/17/2015 06:00:00 AM EST [facility] Name Value Range Interpretation Description Data Sup porting Code Source(s) Document(s ) Anisocytosis Moderate Normal (applies Anisocytosis [facility] [Presence] in to non-numeric Health Blood by results) System Automated count Polys 57 % Normal (applies Polys [facility] to non-numeric [facility] results) System Lymphocyte %. 38 % 21 - 51 Normal (applies Lymphocyte %. [facility] % to non-numeric [facility] results) System Platelets Adequate Normal (applies Platelet Count [facility] [#/volume] in to non-numeric Estimate [facility] Blood by results) System Estimate Monocyte %. 4 % 6 - 9 % Below low normal Monocyte %. [facility] Eosinophils %. 1 % 1 - 3 % Normal (applies Eosinophils %. [facility] to non-numeric [facility] results) System ID Date Data Source [id number] 04/17/2015 06:00:00 AM EST [facility] Name Value Range Interpretation Description Data Sup porting Code Source(s) Document(s ) Leukocytes 4.0 4.8 - Below low normal WBC Count [facility] [#/volume] in {10^3_uL 10.8 Health Unspecified } 10^3 uL System specimen by Automated count Erythrocytes 3.35 3.80 - Below low normal RBC Count [facility] [#/volume] in {10^6_uL 5.20 Health Blood by } 10^6 uL System Automated count Hemoglobin 10.2 12.0 - Below low normal Hemoglobin [facility] [Mass/volume] in {gm/dL} 16.0 Health Blood gm/dL System Hematocrit 30.1 % 36.0 - Below low normal Hematocrit [facility] [Volume 46.0 % Health Fraction] of System Blood Erythrocyte mean 89.9 fl 80.0 - Normal (applies MCV [facility] corpuscular 100.0 to non-numeric Health volume [Entitic fl results) System volume] by Automated count Erythrocyte mean 30.4 pg 26.0 - Normal (applies MCH [facility] corpuscular 34.0 pg to non-numeric Health hemoglobin results) System [Entitic mass] by Automated count Erythrocyte mean 33.9 33.0 - Normal (applies MCHC [facility] corpuscular {gm/dL} 37.0 to non-numeric Health hemoglobin gm/dL results) System concentration [Mass/volume] by Automated count Erythrocyte 13.3 % 11.5 - Normal (applies RDW-CV [facility] distribution 14.5 % to non-numeric Health width [Entitic results) System volume] by Automated count Platelets 175 130 - Normal (applies Platelet [facility] [#/volume] in {10^3_uL 400 to non-numeric Count Health Plasma by } 10^3 uL results) System Automated count Platelet mean 11.4 fl 7.4 - Above high MPV [facility] volume [Entitic 10.4 fl normal Health volume] in Blood System by Automated count Monocytes 0.3 0.3 - Below low normal Monocyte # [facility] [#/volume] in {10^3_uL 0.9 Health Blood by Manual } 10^3 uL System count Eosinophils 0.08 0.05 - Normal (applies Eosinophil # [facility] [#/volume] in {10^3_uL 0.30 to non-numeric Health Blood } 10^3 uL results) System Neutrophils 1.8 2.0 - Below low normal Neutrophil # [facility] [#/volume] in {10^3_uL 8.1 Health Body fluid } 10^3 uL System Basophils 0.02 0.00 - Normal (applies Basophil # [facility] [#/volume] in {10^3_uL 0.10 to non-numeric Health Blood by } 10^3 uL results) System Automated count Lymphocyte # 1.8 1.0 - Normal (applies Lymphocyte # [facility] {10^3_uL 5.5 to non-numeric Health } 10^3 uL results) System Neutrophils/100 45.9 % 0.0 - Normal (applies Neutrophil % [facility] leukocytes in 120.0 % to non-numeric Health Blood by results) System Automated count Monocytes/100 7.3 % 6.0 - Normal (applies Monocyte % [facility] leukocytes in 9.0 % to non-numeric Health Blood results) System Eosinophils/100 2.0 % 1.0 - Normal (applies Eosinophil % [facility] grace leukocytes in 3.0 % to non-numeric Health Unspecified results) System specimen Basophils/100 0.5 % 0.0 - Normal (applies Basophil % [facility] leukocytes in 1.0 % to non-numeric Health Unspecified results) System specimen by Manual count Lymphocytes 44.3 % 21.0 - Normal (applies Lymphocyte % [facility] [#/volume] in 51.0 % to non-numeric Health Blood by results) System Automated count ID Date Data Source [id number] 04/17/2015 06:00:00 AM EST [facility] Name Value Range Interpretation Description Data Sup porting Code Source(s) Document(s ) Sodium 138 137 - Normal (applies Sodium, Serum [facility] [Moles/volume] in mmol/L 145 to non-numeric Health Serum or Plasma mmol/L results) System Potassium 4.3 3.6 - Normal (applies Potassium, [facility] [Mass/volume] in mmol/L 5.0 to non-numeric Serum [facility] Serum or Plasma mmol/L results) System Chloride 106 98 - Normal (applies Chloride, [facility] [Moles/volume] in mmol/L 107 to non-numeric Serum Health Serum or Plasma mmol/L results) System Carbon dioxide, 21.0 22.0 - Below low normal CO2, Serum [facility] total mmol/L 30.0 Health [Moles/volume] in mmol/L System Serum or Plasma Total Protein 7.1 6.3 - Normal (applies Total Protein [facility] mg/dl 8.2 to non-numeric Health mg/dl results) System Glucose 97 65 - Normal (applies Glucose, [facility] [Mass/volume] in mg/dL 105 to non-numeric Serum Health Serum or Plasma mg/dL results) System Urea nitrogen 20 7 - 18 Above high Blood Urea [facility] [Mass/volume] in mg/dl mg/dl normal Nitrogen, Health Serum or Plasma Serum System Creatinine 1.41 0.70 - Above high Creatinine, [facility] [Mass/volume] in mg/dl 1.20 normal Serum [facility] Serum or Plasma mg/dl System Alkaline 79 38 - Normal (applies Alkaline [facility] phosphatase {IU/L} 126 to non-numeric Phosphatase, Health isoenzymes IU/L results) Serum System [Enzymatic activity/volume] in Serum or Plasma by Heat stability Bilirubin.total 0.2 0.2 - Normal (applies Bilirubin, [facility] [Mass/volume] in mg/dl 1.3 to non-numeric Serum Total Health Serum or Plasma mg/dl results) System Direct Bilirubin 0.1 0.0 - Normal (applies Direct [facility] mg/dl 0.4 to non-numeric Bilirubin Health mg/dl results) System Aspartate 37 5 - 40 Normal (applies Aspartate [facility] aminotransferase {IU/L} IU/L to non-numeric Transaminase, Heal th [Enzymatic results) Serum System activity/volume] in Serum or Plasma by With P-5'-P Albumin 3.4 3.9 - Below low normal Albumin, [facility] [Mass/volume] in {gm/dl} 5.0 Serum Health Serum or Plasma gm/dl System I. Phosphorus 4.6 2.5 - Above high I. Phosphorus [facility] mg/dl 4.5 normal Health mg/dl System Alanine 26 7 - 56 Normal (applies Alanine [facility] aminotransferase {IU/L} IU/L to non-numeric Aminotransfer [facility] [Enzymatic results) ase, Serum System activity/volume] in Serum or Plasma Calcium 8.7 8.4 - Normal (applies Calcium, [facility] [Mass/volume] in mg/dl 10.2 to non-numeric Total Serum [facility] Serum or Plasma mg/dl results) System A/G Ratio 0.92 Normal (applies A/G Ratio [facility] to non-numeric Health results) System Urate 4.4 2.5 - Normal (applies Uric Acid, [facility] [Mass/volume] in mg/dl 7.5 to non-numeric Serum Health Serum or Plasma mg/dl results) System Anion gap in Serum 11.00 8.00 - Normal (applies Anion Gap [facility] or Plasma mmol/L 12.00 to non-numeric Health mmol/L results) System Glomerular 37.97 Normal (applies GFR [facility] filtration to non-numeric Health rate/1.73 sq results) System M.predicted [Volume Rate/Area] in Serum or Plasma by Creatinine-based formula (CKD-EPI) eGFR will provide clinicians with a more accurate indicator of renal function then the serum creatinine. The eGFR is automa tically calculated from an empiric formula (endorsed by the [employer]) which incorporates age, sex, and race.Clinicians may notice surprisingly low GFR's with serum creatinine valueswithin normal range- particularly in elderly wo men (with low muscle mass).In the hospital setting, the eGFR should add an element of safety in drug dosing, in assessing the risk of IV contrast administration, and in assessing vascular risk.The NKF staging system is as follows:Normal: eGFR >90 with no kidney markersStage 1: eGFR >90 with kidney markers*Stage 2: eGFR 60- 89Stage 3: eGFR 30-59Stage 4: eGFR 15-29Stage 5: eGFR <15 (usually requir ing dialysis)*Markers include: Proteinuria, Hematuria, abnormal imaging-studies, or other blood or urine test abnormalities ID Date Data Source [id number] 04/16/2015 06:00:00 AM EST [facility] Name Value Range Interpretation Description Data Sup porting Code Source(s) Document(s ) Leukocytes 4.5 4.8 - Below low normal WBC Count [facility] [#/volume] in {10^3_uL 10.8 Health Unspecified } 10^3 uL System specimen by Automated count Erythrocytes 3.30 3.80 - Below low normal RBC Count [facility] [#/volume] in {10^6_uL 5.20 Health Blood by } 10^6 uL System Automated count Hemoglobin 10.0 12.0 - Below low normal Hemoglobin [facility] [Mass/volume] in {gm/dL} 16.0 Health Blood gm/dL System Hematocrit 29.3 % 36.0 - Below low normal Hematocrit [facility] [Volume 46.0 % Health Fraction] of System Blood Erythrocyte mean 88.8 fl 80.0 - Normal (applies MCV [facility] corpuscular 100.0 to non-numeric Health volume [Entitic fl results) System volume] by Automated count Erythrocyte mean 30.3 pg 26.0 - Normal (applies MCH [facility] corpuscular 34.0 pg to non-numeric Health hemoglobin results) System [Entitic mass] by Automated count Erythrocyte mean 34.1 33.0 - Normal (applies MCHC [facility] corpuscular {gm/dL} 37.0 to non-numeric Health hemoglobin gm/dL results) System concentration [Mass/volume] by Automated count Erythrocyte 13.2 % 11.5 - Normal (applies RDW-CV [facility] distribution 14.5 % to non-numeric Health width [Entitic results) System volume] by Automated count Platelets 171 130 - Normal (applies Platelet [facility] [#/volume] in {10^3_uL 400 to non-numeric Count Health Plasma by } 10^3 uL results) System Automated count Platelet mean 11.6 fl 7.4 - Above high MPV [facility] volume [Entitic 10.4 fl normal Health volume] in Blood System by Automated count Monocytes 0.3 0.3 - Below low normal Monocyte # [facility] [#/volume] in {10^3_uL 0.9 Health Blood by Manual } 10^3 uL System count Eosinophils 0.08 0.05 - Normal (applies Eosinophil # [facility] [#/volume] in {10^3_uL 0.30 to non-numeric Health Blood } 10^3 uL results) System Neutrophils 2.4 2.0 - Normal (applies Neutrophil # [facility] [#/volume] in {10^3_uL 8.1 to non-numeric Health Body fluid } 10^3 uL results) System Basophils 0.02 0.00 - Normal (applies Basophil # [facility] [#/volume] in {10^3_uL 0.10 to non-numeric Health Blood by } 10^3 uL results) System Automated count Lymphocyte # 1.7 1.0 - Normal (applies Lymphocyte # [facility] {10^3_uL 5.5 to non-numeric Health } 10^3 uL results) System Neutrophils/100 53.5 % 0.0 - Normal (applies Neutrophil % [facility] grace leukocytes in 120.0 % to non-numeric Health Blood by results) System Automated count Monocytes/100 6.5 % 6.0 - Normal (applies Monocyte % [facility] leukocytes in 9.0 % to non-numeric Health Blood results) System Eosinophils/100 1.8 % 1.0 - Normal (applies Eosinophil % [facility] grace leukocytes in 3.0 % to non-numeric Health Unspecified results) System specimen Basophils/100 0.4 % 0.0 - Normal (applies Basophil % [facility] leukocytes in 1.0 % to non-numeric Health Unspecified results) System specimen by Manual count Lymphocytes 37.8 % 21.0 - Normal (applies Lymphocyte % [facility] [#/volume] in 51.0 % to non-numeric Health Blood by results) System Automated count ID Date Data Source [id number] 04/16/2015 06:00:00 AM EST [facility] Name Value Range Interpretation Description Data Sup porting Code Source(s) Document(s ) Sodium 136 137 - Below low normal Sodium, Serum [facility] [Moles/volume] in mmol/L 145 Health Serum or Plasma mmol/L System Potassium 4.4 3.6 - Normal (applies Potassium, [facility] [Mass/volume] in mmol/L 5.0 to non-numeric Serum [facility] Serum or Plasma mmol/L results) System Chloride 106 98 - Normal (applies Chloride, [facility] [Moles/volume] in mmol/L 107 to non-numeric Serum [facility] Serum or Plasma mmol/L results) System Carbon dioxide, 22.0 22.0 - Normal (applies CO2, Serum [facility] total mmol/L 30.0 to non-numeric Health [Moles/volume] in mmol/L results) System Serum or Plasma Total Protein 7.2 6.3 - Normal (applies Total Protein [facility] mg/dl 8.2 to non-numeric Health mg/dl results) System Glucose 188 65 - Above high Glucose, [facility] [Mass/volume] in mg/dL 105 normal Serum [facility] Serum or Plasma mg/dL System Urea nitrogen 20 7 - 18 Above high Blood Urea [facility] [Mass/volume] in mg/dl mg/dl normal Nitrogen, Health Serum or Plasma Serum System Creatinine 1.40 0.70 - Above high Creatinine, [facility] [Mass/volume] in mg/dl 1.20 normal Serum [facility] Serum or Plasma mg/dl System Alkaline 80 38 - Normal (applies Alkaline [facility] phosphatase {IU/L} 126 to non-numeric Phosphatase, Health isoenzymes IU/L results) Serum System [Enzymatic activity/volume] in Serum or Plasma by Heat stability Bilirubin.total 0.2 0.2 - Normal (applies Bilirubin, [facility] [Mass/volume] in mg/dl 1.3 to non-numeric Serum Total [facility] Serum or Plasma mg/dl results) System Direct Bilirubin 0.1 0.0 - Normal (applies Direct [facility] mg/dl 0.4 to non-numeric Bilirubin [facility] mg/dl results) System Aspartate 30 5 - 40 Normal (applies Aspartate [facility] aminotransferase {IU/L} IU/L to non-numeric Transaminase, [facility]al [facility] [Enzymatic results) Serum System activity/volume] in Serum or Plasma by With P-5'-P Albumin 3.4 3.9 - Below low normal Albumin, [facility] [Mass/volume] in {gm/dl} 5.0 Serum [facility] Serum or Plasma gm/dl System I. Phosphorus 4.2 2.5 - Normal (applies I. Phosphorus [facility] mg/dl 4.5 to non-numeric Health mg/dl results) System Alanine 23 7 - 56 Normal (applies Alanine [facility] aminotransferase {IU/L} IU/L to non-numeric Aminotransfer [facility] [Enzymatic results) ase, Serum System activity/volume] in Serum or Plasma Calcium 8.7 8.4 - Normal (applies Calcium, [facility] [Mass/volume] in mg/dl 10.2 to non-numeric Total Serum Health Serum or Plasma mg/dl results) System A/G Ratio 0.89 Normal (applies A/G Ratio [facility] to non-numeric Health results) System Urate 4.0 2.5 - Normal (applies Uric Acid, [facility] [Mass/volume] in mg/dl 7.5 to non-numeric Serum Health Serum or Plasma mg/dl results) System Anion gap in Serum 8.00 8.00 - Normal (applies Anion Gap [facility] grace or Plasma mmol/L 12.00 to non-numeric Health mmol/L results) System Glomerular 38.28 Normal (applies GFR [facility] filtration to non-numeric Health rate/1.73 sq results) System M.predicted [Volume Rate/Area] in Serum or Plasma by Creatinine-based formula (CKD-EPI) eGFR will provide clinicians with a more accurate indicator of renal function then the serum creatinine. The eGFR is automa tically calculated from an empiric formula (endorsed by the [employer]) which incorporates age, sex, and race.Clinicians may notice surprisingly low GFR's with serum creatinine valueswithin normal range- particularly in elderly wo men (with low muscle mass).In the hospital setting, the eGFR should add an element of safety in drug dosing, in assessing the risk of IV contrast administration, and in assessing vascular risk.The NKF staging system is as follows:Normal: eGFR >90 with no kidney markersStage 1: eGFR >90 with kidney markers*Stage 2: eGFR 60- 89Stage 3: eGFR 30-59Stage 4: eGFR 15-29Stage 5: eGFR <15 (usually requir ing dialysis)*Markers include: Proteinuria, Hematuria, abnormal imaging-studies, or other blood or urine test abnormalities ID Date Data Source [id number] 04/14/2015 06:00:00 AM EST [facility] Name Value Range Interpretation Description Data Sup porting Code Source(s) Document(s ) Leukocytes 4.6 4.8 - Below low normal WBC Count [facility] [#/volume] in {10^3_uL 10.8 Health Unspecified } 10^3 uL System specimen by Automated count Erythrocytes 3.18 3.80 - Below low normal RBC Count [facility] [#/volume] in {10^6_uL 5.20 Health Blood by } 10^6 uL System Automated count Hemoglobin 9.5 12.0 - Below low normal Hemoglobin [facility] [Mass/volume] in {gm/dL} 16.0 Health Blood gm/dL System Hematocrit 27.9 % 36.0 - Below low normal Hematocrit [facility] [Volume 46.0 % Health Fraction] of System Blood Erythrocyte mean 87.7 fl 80.0 - Normal (applies MCV [facility] corpuscular 100.0 to non-numeric Health volume [Entitic fl results) System volume] by Automated count Erythrocyte mean 29.9 pg 26.0 - Normal (applies MCH [facility] corpuscular 34.0 pg to non-numeric Health hemoglobin results) System [Entitic mass] by Automated count Erythrocyte mean 34.1 33.0 - Normal (applies MCHC [facility] corpuscular {gm/dL} 37.0 to non-numeric Health hemoglobin gm/dL results) System concentration [Mass/volume] by Automated count Erythrocyte 12.7 % 11.5 - Normal (applies RDW-CV [facility] distribution 14.5 % to non-numeric Health width [Entitic results) System volume] by Automated count Platelets 158 130 - Normal (applies Platelet [facility] [#/volume] in {10^3_uL 400 to non-numeric Count Health Plasma by } 10^3 uL results) System Automated count Platelet mean 11.2 fl 7.4 - Above high MPV [facility] volume [Entitic 10.4 fl normal Health volume] in Blood System by Automated count Monocytes 0.2 0.3 - Below low normal Monocyte # [facility] [#/volume] in {10^3_uL 0.9 Health Blood by Manual } 10^3 uL System count Eosinophils 0.03 0.05 - Below low normal Eosinophil # [facility] [#/volume] in {10^3_uL 0.30 Health Blood } 10^3 uL System Neutrophils 2.8 2.0 - Normal (applies Neutrophil # [facility] [#/volume] in {10^3_uL 8.1 to non-numeric Health Body fluid } 10^3 uL results) System Basophils 0.01 0.00 - Normal (applies Basophil # [facility] [#/volume] in {10^3_uL 0.10 to non-numeric Health Blood by } 10^3 uL results) System Automated count Lymphocyte # 1.6 1.0 - Normal (applies Lymphocyte # [facility] {10^3_uL 5.5 to non-numeric Health } 10^3 uL results) System Neutrophils/100 59.4 % 0.0 - Normal (applies Neutrophil % [facility] grace leukocytes in 120.0 % to non-numeric Health Blood by results) System Automated count Monocytes/100 5.2 % 6.0 - Below low normal Monocyte % [facility] leukocytes in 9.0 % Health Blood System Eosinophils/100 0.6 % 1.0 - Below low normal Eosinophil % [facility] leukocytes in 3.0 % Health Unspecified System specimen Basophils/100 0.2 % 0.0 - Normal (applies Basophil % [facility] leukocytes in 1.0 % to non-numeric Health Unspecified results) System specimen by Manual count Lymphocytes 34.6 % 21.0 - Normal (applies Lymphocyte % [facility] [#/volume] in 51.0 % to non-numeric Health Blood by results) System Automated count ID Date Data Source [id number] 04/14/2015 06:00:00 AM EST [facility] Name Value Range Interpretation Description Data Sup porting Code Source(s) Document(s ) Sodium 139 137 - Normal (applies Sodium, Serum [facility] [Moles/volume] in mmol/L 145 to non-numeric Health Serum or Plasma mmol/L results) System Potassium 3.8 3.6 - Normal (applies Potassium, [facility] [Mass/volume] in mmol/L 5.0 to non-numeric Serum Health Serum or Plasma mmol/L results) System Chloride 108 98 - Above high Chloride, [facility] [Moles/volume] in mmol/L 107 normal Serum Health Serum or Plasma mmol/L System Carbon dioxide, 22.0 22.0 - Normal (applies CO2, Serum [facility] total mmol/L 30.0 to non-numeric Health [Moles/volume] in mmol/L results) System Serum or Plasma Total Protein 7.0 6.3 - Normal (applies Total Protein [facility] mg/dl 8.2 to non-numeric Health mg/dl results) System Glucose 188 65 - Above high Glucose, [facility] [Mass/volume] in mg/dL 105 normal Serum Health Serum or Plasma mg/dL System Urea nitrogen 15 7 - 18 Normal (applies Blood Urea [facility] [Mass/volume] in mg/dl mg/dl to non-numeric Nitrogen, Health Serum or Plasma results) Serum System Creatinine 1.40 0.70 - Above high Creatinine, [facility] [Mass/volume] in mg/dl 1.20 normal Serum [facility] Serum or Plasma mg/dl System Alkaline 74 38 - Normal (applies Alkaline [facility] phosphatase {IU/L} 126 to non-numeric Phosphatase, [facility] isoenzymes IU/L results) Serum System [Enzymatic activity/volume] in Serum or Plasma by Heat stability Bilirubin.total 0.3 0.2 - Normal (applies Bilirubin, [facility] [Mass/volume] in mg/dl 1.3 to non-numeric Serum Total Health Serum or Plasma mg/dl results) System Direct Bilirubin 0.1 0.0 - Normal (applies Direct [facility] mg/dl 0.4 to non-numeric Bilirubin Health mg/dl results) System Aspartate 30 5 - 40 Normal (applies Aspartate [facility] aminotransferase {IU/L} IU/L to non-numeric Transaminase, [facility]al th [Enzymatic results) Serum System activity/volume] in Serum or Plasma by With P-5'-P Albumin 3.4 3.9 - Below low normal Albumin, [facility] [Mass/volume] in {gm/dl} 5.0 Serum Health Serum or Plasma gm/dl System I. Phosphorus 4.0 2.5 - Normal (applies I. Phosphorus [facility] mg/dl 4.5 to non-numeric Health mg/dl results) System Alanine 22 7 - 56 Normal (applies Alanine [facility] aminotransferase {IU/L} IU/L to non-numeric Aminotransfer Heal th [Enzymatic results) ase, Serum System activity/volume] in Serum or Plasma Calcium 8.4 8.4 - Normal (applies Calcium, [facility] [Mass/volume] in mg/dl 10.2 to non-numeric Total Serum Health Serum or Plasma mg/dl results) System A/G Ratio 0.94 Normal (applies A/G Ratio [facility] to non-numeric Health results) System Urate 3.7 2.5 - Normal (applies Uric Acid, [facility] [Mass/volume] in mg/dl 7.5 to non-numeric Serum Health Serum or Plasma mg/dl results) System Anion gap in Serum 9.00 8.00 - Normal (applies Anion Gap [facility] grace or Plasma mmol/L 12.00 to non-numeric Health mmol/L results) System Glomerular 38.28 Normal (applies GFR [facility] filtration to non-numeric Health rate/1.73 sq results) System M.predicted [Volume Rate/Area] in Serum or Plasma by Creatinine-based formula (CKD-EPI) eGFR will provide clinicians with a more accurate indicator of renal function then the serum creatinine. The eGFR is automa tically calculated from an empiric formula (endorsed by the [employer]) which incorporates age, sex, and race.Clinicians may notice surprisingly low GFR's with serum creatinine valueswithin normal range- particularly in elderly wo men (with low muscle mass).In the hospital setting, the eGFR should add an element of safety in drug dosing, in assessing the risk of IV contrast administration, and in assessing vascular risk.The NKF staging system is as follows:Normal: eGFR >90 with no kidney markersStage 1: eGFR >90 with kidney markers*Stage 2: eGFR 60- 89Stage 3: eGFR 30-59Stage 4: eGFR 15-29Stage 5: eGFR <15 (usually requir ing dialysis)*Markers include: Proteinuria, Hematuria, abnormal imaging-studies, or other blood or urine test abnormalities ID Date Data Source [id number] 04/13/2015 06:00:00 AM EST [facility] Name Value Range Interpretation Description Data Sup porting Code Source(s) Document(s ) Leukocytes 5.3 4.8 - Normal (applies WBC Count [facility] [#/volume] in {10^3_uL 10.8 to non-numeric Health Unspecified } 10^3 uL results) System specimen by Automated count Erythrocytes 3.41 3.80 - Below low normal RBC Count [facility] [#/volume] in {10^6_uL 5.20 Health Blood by } 10^6 uL System Automated count Hemoglobin 10.2 12.0 - Below low normal Hemoglobin [facility] [Mass/volume] in {gm/dL} 16.0 Health Blood gm/dL System Hematocrit 30.0 % 36.0 - Below low normal Hematocrit [facility] [Volume 46.0 % Health Fraction] of System Blood Erythrocyte mean 88.0 fl 80.0 - Normal (applies MCV [facility] corpuscular 100.0 to non-numeric Health volume [Entitic fl results) System volume] by Automated count Erythrocyte mean 29.9 pg 26.0 - Normal (applies MCH [facility] corpuscular 34.0 pg to non-numeric Health hemoglobin results) System [Entitic mass] by Automated count Erythrocyte mean 34.0 33.0 - Normal (applies MCHC [facility] corpuscular {gm/dL} 37.0 to non-numeric Health hemoglobin gm/dL results) System concentration [Mass/volume] by Automated count Erythrocyte 12.5 % 11.5 - Normal (applies RDW-CV [facility] distribution 14.5 % to non-numeric Health width [Entitic results) System volume] by Automated count Platelets 162 130 - Normal (applies Platelet [facility] [#/volume] in {10^3_uL 400 to non-numeric Count Health Plasma by } 10^3 uL results) System Automated count Platelet mean 11.2 fl 7.4 - Above high MPV [facility] volume [Entitic 10.4 fl normal Health volume] in Blood System by Automated count Monocytes 0.4 0.3 - Normal (applies Monocyte # [facility] [#/volume] in {10^3_uL 0.9 to non-numeric Health Blood by Manual } 10^3 uL results) System count Eosinophils 0.08 0.05 - Normal (applies Eosinophil # [facility] [#/volume] in {10^3_uL 0.30 to non-numeric Health Blood } 10^3 uL results) System Neutrophils 3.0 2.0 - Normal (applies Neutrophil # [facility] [#/volume] in {10^3_uL 8.1 to non-numeric Health Body fluid } 10^3 uL results) System Basophils 0.02 0.00 - Normal (applies Basophil # [facility] [#/volume] in {10^3_uL 0.10 to non-numeric Health Blood by } 10^3 uL results) System Automated count Lymphocyte # 1.9 1.0 - Normal (applies Lymphocyte # [facility] {10^3_uL 5.5 to non-numeric Health } 10^3 uL results) System Neutrophils/100 56.6 % 0.0 - Normal (applies Neutrophil % [facility] grace leukocytes in 120.0 % to non-numeric Health Blood by results) System Automated count Monocytes/100 6.9 % 6.0 - Normal (applies Monocyte % [facility] leukocytes in 9.0 % to non-numeric Health Blood results) System Eosinophils/100 1.5 % 1.0 - Normal (applies Eosinophil % [facility]bal[facility] grace leukocytes in 3.0 % to non-numeric Health Unspecified results) System specimen Basophils/100 0.4 % 0.0 - Normal (applies Basophil % [facility] leukocytes in 1.0 % to non-numeric Health Unspecified results) System specimen by Manual count Lymphocytes 34.6 % 21.0 - Normal (applies Lymphocyte % [facility] [#/volume] in 51.0 % to non-numeric Health Blood by results) System Automated count ID Date Data Source [id number] 04/13/2015 06:00:00 AM EST [facility] System Name Value Range Interpretation Description Data Sup porting Code Source(s) Document(s ) Sodium 136 137 - Below low normal Sodium, Serum [facility] [Moles/volume] in mmol/L 145 Health Serum or Plasma mmol/L System Potassium 3.8 3.6 - Normal (applies Potassium, [facility] [Mass/volume] in mmol/L 5.0 to non-numeric Serum Health Serum or Plasma mmol/L results) System Chloride 106 98 - Normal (applies Chloride, [facility] [Moles/volume] in mmol/L 107 to non-numeric Serum Health Serum or Plasma mmol/L results) System Carbon dioxide, 20.0 22.0 - Below low normal CO2, Serum [facility] total mmol/L 30.0 Health [Moles/volume] in mmol/L System Serum or Plasma Total Protein 7.3 6.3 - Normal (applies Total Protein [facility] mg/dl 8.2 to non-numeric Health mg/dl results) System Glucose 201 65 - Above high Glucose, [facility] [Mass/volume] in mg/dL 105 normal Serum Health Serum or Plasma mg/dL System Urea nitrogen 11 7 - 18 Normal (applies Blood Urea [facility] [Mass/volume] in mg/dl mg/dl to non-numeric Nitrogen, Health Serum or Plasma results) Serum System Creatinine 1.35 0.70 - Above high Creatinine, [facility] [Mass/volume] in mg/dl 1.20 normal Serum Health Serum or Plasma mg/dl System Alkaline 84 38 - Normal (applies Alkaline [facility] phosphatase {IU/L} 126 to non-numeric Phosphatase, Health isoenzymes IU/L results) Serum System [Enzymatic activity/volume] in Serum or Plasma by Heat stability Bilirubin.total 0.2 0.2 - Normal (applies Bilirubin, [facility] [Mass/volume] in mg/dl 1.3 to non-numeric Serum Total Health Serum or Plasma mg/dl results) System Direct Bilirubin 0.1 0.0 - Normal (applies Direct [facility] mg/dl 0.4 to non-numeric Bilirubin Health mg/dl results) System Aspartate 32 5 - 40 Normal (applies Aspartate [facility] aminotransferase {IU/L} IU/L to non-numeric Transaminase, Heal th [Enzymatic results) Serum System activity/volume] in Serum or Plasma by With P-5'-P Albumin 3.4 3.9 - Below low normal Albumin, [facility] [Mass/volume] in {gm/dl} 5.0 Serum Health Serum or Plasma gm/dl System I. Phosphorus 2.9 2.5 - Normal (applies I. Phosphorus [facility] mg/dl 4.5 to non-numeric Health mg/dl results) System Alanine 28 7 - 56 Normal (applies Alanine [facility] aminotransferase {IU/L} IU/L to non-numeric Aminotransfer [facility]al th [Enzymatic results) ase, Serum System activity/volume] in Serum or Plasma Calcium 8.5 8.4 - Normal (applies Calcium, [facility] [Mass/volume] in mg/dl 10.2 to non-numeric Total Serum Health Serum or Plasma mg/dl results) System A/G Ratio 0.87 Normal (applies A/G Ratio [facility] to non-numeric Health results) System Urate 3.8 2.5 - Normal (applies Uric Acid, [facility] [Mass/volume] in mg/dl 7.5 to non-numeric Serum Health Serum or Plasma mg/dl results) System Anion gap in Serum 10.00 8.00 - Normal (applies Anion Gap [facility] grace or Plasma mmol/L 12.00 to non-numeric Health mmol/L results) System Glomerular 39.93 Normal (applies GFR [facility] filtration to non-numeric Health rate/1.73 sq results) System M.predicted [Volume Rate/Area] in Serum or Plasma by Creatinine-based formula (CKD-EPI) eGFR will provide clinicians with a more accurate indicator of renal function then the serum creatinine. The eGFR is automa tically calculated from an empiric formula (endorsed by the [employer] ion) which incorporates age, sex, and race.Clinicians may notice surprisingly low GFR's with serum creatinine valueswithin normal range- particularly in elderly wo men (with low muscle mass).In the hospital setting, the eGFR should add an element of safety in drug dosing, in assessing the risk of IV contrast administration, and in assessing vascular risk.The NKF staging system is as follows:Normal: eGFR >90 with no kidney markersStage 1: eGFR >90 with kidney markers*Stage 2: eGFR 60- 89Stage 3: eGFR 30-59Stage 4: eGFR 15-29Stage 5: eGFR <15 (usually requir ing dialysis)*Markers include: Proteinuria, Hematuria, abnormal imaging-studies, or other blood or urine test abnormalities ID Date Data Source [id number] 04/12/2015 06:00:00 AM EST [facility] Name Value Range Interpretation Description Data Sup porting Code Source(s) Document(s ) Hepatitis C 24.70 {Ratio} <1.0 Above high Hepatitis C [facility] Ratio Ratio normal Ratio Health System Hepatitis B DNR Test Normal (applies Hepatitis B [facility] Surface Performed at: to non-numeric Surface [facility] Antigen Neut [facility] - [facility] results) Antigen Neut [facility], [address] [place] Elena, M.D. Hepatitis B Non Normal (applies Hepatitis B [facility] Core Antibody ReactiveReferen to non-numeric Core Antibody H ealth IgM ce Range: Non results) IgM System Reactive Hepatitis A NonreactiveRefe Normal (applies Hepatitis A [facility] IgM Antibody rence Range: to non-numeric IgM Antibody Health Nonreactive results) System Hepatitis B Non Normal (applies Hepatitis B [facility] Surface ReactiveReferen to non-numeric Surface [facility] Antigen. ce Range: Non results) Antigen. System Reactive Hepatitis C ReactiveReferen Abnormal Hepatitis C [facility] Viral ce Range: Non (applies to Viral Health Antibody Reactive non-numeric Antibody System Following results) CDC recommendations (MMWR No. 62, 2013), this patient's HCV Antibody Reactive sample will be tested for the presence of HCV RNA by a Nucleic Acid Amplification Test (NAAT) to determine if the patient has an active HCV infection. Result Reporting|Telep dianna|Solitario| 04/16/2015 at 9:44 AMCalled to: Dustin Name: Stephanieclaudia nela by: Solitario 04/16/2015 / 9:44 AM Hepatitis C <15 Not Normal (applies Hepatitis C [facility] Viral RNA Detected to non-numeric Viral RNA Health results) System Hepatitis C SEE TEXT <1.18 Normal (applies Hepatitis C [facility] Viral RNA Not Detected to non-numeric Viral RNA Health Quantitative Please results) Quantitative System note: There are several scenarios that may cause this combination of results. 1)Patient is not currently actively infected with HCV either because the patient has a resolved HCV infection or the patient has a false positive Ab test and was never infected with HCV. 2)A few patients with circulating anti-HCV antibodies that do not have detectable HCV RNA, may not have completely resolved the infection. These infrequently encountered patients could be carriers of the virus and should be managed according to the current Treatment Guidelines (J Hepatol, 1577-0072, Dec 2010). Please correlate these findings with the patient's clinical history and any other diagnostic findings, including any evidence of liver dysfunction. This test was performed using the CLAIR(R)AmpliPr ep/ CLAIR(R)TaqMan( R)HCV Test, v2.0. The performance characteristics of this assay have been determined by [facility]. Performance characteristics refer to the analytical performance of the test. For more information on this test, go to: http://[email or web address] [email or web address] Test Performed at: [facility] [place], [place] [address] Alvaro Cuba M.D. ID Date Data Source [id number] 04/12/2015 06:00:00 AM EST [facility] Name Value Range Interpretation Description Data Sup porting Code Source(s) Document(s ) Leukocytes 4.8 4.8 - Below low normal WBC Count [facility] [#/volume] in {10^3_uL 10.8 Health Unspecified } 10^3 uL System specimen by Automated count Erythrocytes 3.19 3.80 - Below low normal RBC Count [facility] [#/volume] in {10^6_uL 5.20 Health Blood by } 10^6 uL System Automated count Hemoglobin 9.8 12.0 - Below low normal Hemoglobin [facility] [Mass/volume] in {gm/dL} 16.0 Health Blood gm/dL System Hematocrit 27.7 % 36.0 - Below low normal Hematocrit [facility] [Volume 46.0 % Health Fraction] of System Blood Erythrocyte mean 86.8 fl 80.0 - Normal (applies MCV [facility] corpuscular 100.0 to non-numeric Health volume [Entitic fl results) System volume] by Automated count Erythrocyte mean 30.7 pg 26.0 - Normal (applies MCH [facility] corpuscular 34.0 pg to non-numeric Health hemoglobin results) System [Entitic mass] by Automated count Erythrocyte mean 35.4 33.0 - Normal (applies MCHC [facility] corpuscular {gm/dL} 37.0 to non-numeric Health hemoglobin gm/dL results) System concentration [Mass/volume] by Automated count Erythrocyte 12.3 % 11.5 - Normal (applies RDW-CV [facility] distribution 14.5 % to non-numeric Health width [Entitic results) System volume] by Automated count Platelets 159 130 - Normal (applies Platelet [facility] [#/volume] in {10^3_uL 400 to non-numeric Count Health Plasma by } 10^3 uL results) System Automated count Platelet mean 11.4 fl 7.4 - Above high MPV [facility] volume [Entitic 10.4 fl normal Health volume] in Blood System by Automated count Monocytes 0.3 0.3 - Normal (applies Monocyte # [facility] [#/volume] in {10^3_uL 0.9 to non-numeric Health Blood by Manual } 10^3 uL results) System count Eosinophils 0.09 0.05 - Normal (applies Eosinophil # [facility] [#/volume] in {10^3_uL 0.30 to non-numeric Health Blood } 10^3 uL results) System Neutrophils 2.7 2.0 - Normal (applies Neutrophil # [facility] [#/volume] in {10^3_uL 8.1 to non-numeric Health Body fluid } 10^3 uL results) System Basophils 0.01 0.00 - Normal (applies Basophil # [facility] [#/volume] in {10^3_uL 0.10 to non-numeric Health Blood by } 10^3 uL results) System Automated count Lymphocyte # 1.6 1.0 - Normal (applies Lymphocyte # [facility] {10^3_uL 5.5 to non-numeric Health } 10^3 uL results) System Neutrophils/100 57.2 % 0.0 - Normal (applies Neutrophil % Ubal[facility] grace leukocytes in 120.0 % to non-numeric Health Blood by results) System Automated count Monocytes/100 7.1 % 6.0 - Normal (applies Monocyte % [facility] leukocytes in 9.0 % to non-numeric Health Blood results) System Eosinophils/100 1.9 % 1.0 - Normal (applies Eosinophil % Ubaldo grace leukocytes in 3.0 % to non-numeric Health Unspecified results) System specimen Basophils/100 0.2 % 0.0 - Normal (applies Basophil % [facility] leukocytes in 1.0 % to non-numeric Health Unspecified results) System specimen by Manual count Lymphocytes 33.6 % 21.0 - Normal (applies Lymphocyte % [facility] [#/volume] in 51.0 % to non-numeric Health Blood by results) System Automated count ID Date Data Source [id number] 04/12/2015 06:00:00 AM EST [facility] Name Value Range Interpretation Description Data Sup porting Code Source(s) Document(s ) Sodium 135 137 - Below low normal Sodium, Serum [facility] [Moles/volume] in mmol/L 145 Health Serum or Plasma mmol/L System Potassium 3.0 3.6 - Below low normal Potassium, [facility] [Mass/volume] in mmol/L 5.0 Serum Health Serum or Plasma mmol/L System Chloride 105 98 - Normal (applies Chloride, [facility] [Moles/volume] in mmol/L 107 to non-numeric Serum Health Serum or Plasma mmol/L results) System Carbon dioxide, 20.0 22.0 - Below low normal CO2, Serum [facility] total mmol/L 30.0 Health [Moles/volume] in mmol/L System Serum or Plasma Total Protein 6.8 6.3 - Normal (applies Total Protein [facility] mg/dl 8.2 to non-numeric Health mg/dl results) System Glucose 145 65 - Above high Glucose, [facility] [Mass/volume] in mg/dL 105 normal Serum Health Serum or Plasma mg/dL System Urea nitrogen 12 7 - 18 Normal (applies Blood Urea [facility] [Mass/volume] in mg/dl mg/dl to non-numeric Nitrogen, Health Serum or Plasma results) Serum System Creatinine 1.14 0.70 - Normal (applies Creatinine, [facility] [Mass/volume] in mg/dl 1.20 to non-numeric Serum Health Serum or Plasma mg/dl results) System Alkaline 87 38 - Normal (applies Alkaline [facility] phosphatase {IU/L} 126 to non-numeric Phosphatase, [facility] isoenzymes IU/L results) Serum System [Enzymatic activity/volume] in Serum or Plasma by Heat stability Bilirubin.total 0.3 0.2 - Normal (applies Bilirubin, [facility] [Mass/volume] in mg/dl 1.3 to non-numeric Serum Total Health Serum or Plasma mg/dl results) System Direct Bilirubin 0.2 0.0 - Normal (applies Direct [facility] mg/dl 0.4 to non-numeric Bilirubin Health mg/dl results) System Aspartate 27 5 - 40 Normal (applies Aspartate [facility] aminotransferase {IU/L} IU/L to non-numeric Transaminase, Heal th [Enzymatic results) Serum System activity/volume] in Serum or Plasma by With P-5'-P Albumin 3.2 3.9 - Below low normal Albumin, [facility] [Mass/volume] in {gm/dl} 5.0 Serum Health Serum or Plasma gm/dl System I. Phosphorus 2.3 2.5 - Below low normal I. Phosphorus [facility] grace mg/dl 4.5 Health mg/dl System Alanine 26 7 - 56 Normal (applies Alanine [facility] aminotransferase {IU/L} IU/L to non-numeric Aminotransfer Heal th [Enzymatic results) ase, Serum System activity/volume] in Serum or Plasma Calcium 7.8 8.4 - Below low normal Calcium, [facility] [Mass/volume] in mg/dl 10.2 Total Serum Health Serum or Plasma mg/dl System A/G Ratio 0.89 Normal (applies A/G Ratio [facility] to non-numeric Health results) System Urate 3.2 2.5 - Normal (applies Uric Acid, [facility] [Mass/volume] in mg/dl 7.5 to non-numeric Serum Health Serum or Plasma mg/dl results) System Anion gap in Serum 10.00 8.00 - Normal (applies Anion Gap Ubal[facility] grace or Plasma mmol/L 12.00 to non-numeric Health mmol/L results) System Glomerular 48.53 Normal (applies GFR [facility] filtration to non-numeric Health rate/1.73 sq results) System M.predicted [Volume Rate/Area] in Serum or Plasma by Creatinine-based formula (CKD-EPI) eGFR will provide clinicians with a more accurate indicator of renal function then the serum creatinine. The eGFR is automa tically calculated from an empiric formula (endorsed by the National Kid[employer] ion) which incorporates age, sex, and race.Clinicians may notice surprisingly low GFR's with serum creatinine valueswithin normal range- particularly in elderly wo men (with low muscle mass).In the hospital setting, the eGFR should add an element of safety in drug dosing, in assessing the risk of IV contrast administration, and in assessing vascular risk.The NKF staging system is as follows:Normal: eGFR >90 with no kidney markersStage 1: eGFR >90 with kidney markers*Stage 2: eGFR 60- 89Stage 3: eGFR 30-59Stage 4: eGFR 15-29Stage 5: eGFR <15 (usually requir ing dialysis)*Markers include: Proteinuria, Hematuria, abnormal imaging-studies, or other blood or urine test abnormalities ID Date Data Source [id number] 04/12/2015 06:00:00 AM EST [facility] Name Value Range Interpretation Description Data Sup porting Code Source(s) Document(s ) Triglyceride 110 35 - 135 Normal (applies Triglycerides [facility] [Mass/volume] mg/dl mg/dl to non-numeric , Serum Health in Serum or results) System Plasma Optimal = < 100 mg/dLBoderline High = 15 0 - 199 mg/dLHigh = 200 - 499 mg/dLVery High = > 500 mg/dL Cholesterol 112 mg/dl *.* mg/dl Normal (applies Cholesterol, [facility] [Mass/volume] in to non-numeric Serum Health S yste Serum or Plasma results) <200 mg/dL = [id number] - 239 md/dL = Borderline>240 mg/dL = High Risk Cholesterol in HDL 27.0 mg/dL 32.0 - Below low HDL Cholesterol, [facility] [Mass/volume] in 75.0 mg/dL normal Serum Health Syste m Serum or Plasma Cholesterol in LDL 63 mg/dL Normal Low Density [facility] [Mass/volume] in (applies to Lipoprotein, Health S yste Serum or Plasma non-numeric Calculated results) OPTIMAL: LESS THAN 100 mg/dLNEAR OPTIMAL : 100 - 129 mg/dLBODERLINE HIGH: 130 - 150 mg/dL Cholesterol in VLDL 22 Normal (applies to VLDL, Serum [facility] [Mass/volume] in non-numeric System Serum or Plasma results) CHD Risk 4.15 2.40 - Normal (applies to CHD Risk [facility] 5.30 non-numeric System results) ID Date Data Source [id number] 04/12/2015 06:00:00 AM EST [facility] Name Value Range Interpretation Code Description Data Nyla rce(s) Supporting Document(s ) HbA1C 17.0 % 4.6 - 6.2 Above high normal HbA1C [facility] % [facility] System ID Date Data Source [id number] 04/12/2015 01:26:00 AM EST [facility] Name Value Range Interpretation Description Data Sup porting Code Source(s) Document(s ) Sodium 132 137 - Below low normal Sodium, Serum [facility] [Moles/volume] in mmol/L 145 Health Serum or Plasma mmol/L System Potassium 3.0 3.6 - Below low normal Potassium, [facility] [Mass/volume] in mmol/L 5.0 Serum Health Serum or Plasma mmol/L System Chloride 103 98 - Normal (applies Chloride, [facility] [Moles/volume] in mmol/L 107 to non-numeric Serum Health Serum or Plasma mmol/L results) System Carbon dioxide, 15.0 22.0 - Below low normal CO2, Serum [facility] total mmol/L 30.0 Health [Moles/volume] in mmol/L System Serum or Plasma Total Protein 6.8 6.3 - Normal (applies Total Protein [facility] mg/dl 8.2 to non-numeric Health mg/dl results) System Glucose 425 65 - Above high Glucose, [facility] [Mass/volume] in mg/dL 105 normal Serum Health Serum or Plasma mg/dL System Urea nitrogen 15 7 - 18 Normal (applies Blood Urea [facility] [Mass/volume] in mg/dl mg/dl to non-numeric Nitrogen, Health Serum or Plasma results) Serum System Creatinine 1.36 0.70 - Above high Creatinine, [facility] [Mass/volume] in mg/dl 1.20 normal Serum Health Serum or Plasma mg/dl System Alkaline 102 38 - Normal (applies Alkaline [facility] phosphatase {IU/L} 126 to non-numeric Phosphatase, Health isoenzymes IU/L results) Serum System [Enzymatic activity/volume] in Serum or Plasma by Heat stability Bilirubin.total 0.3 0.2 - Normal (applies Bilirubin, [facility] [Mass/volume] in mg/dl 1.3 to non-numeric Serum Total Health Serum or Plasma mg/dl results) System Direct Bilirubin 0.1 0.0 - Normal (applies Direct [facility] mg/dl 0.4 to non-numeric Bilirubin Health mg/dl results) System Aspartate 28 5 - 40 Normal (applies Aspartate [facility] aminotransferase {IU/L} IU/L to non-numeric Transaminase, Heal th [Enzymatic results) Serum System activity/volume] in Serum or Plasma by With P-5'-P Albumin 3.1 3.9 - Below low normal Albumin, [facility] [Mass/volume] in {gm/dl} 5.0 Serum Health Serum or Plasma gm/dl System I. Phosphorus 2.0 2.5 - Below low normal I. Phosphorus Ubaldo grace mg/dl 4.5 Health mg/dl System Alanine 27 7 - 56 Normal (applies Alanine [facility] aminotransferase {IU/L} IU/L to non-numeric Aminotransfer Heal th [Enzymatic results) ase, Serum System activity/volume] in Serum or Plasma Calcium 7.5 8.4 - Below low normal Calcium, [facility] [Mass/volume] in mg/dl 10.2 Total Serum Health Serum or Plasma mg/dl System A/G Ratio 0.84 Normal (applies A/G Ratio [facility] to non-numeric Health results) System Urate 3.4 2.5 - Normal (applies Uric Acid, [facility] [Mass/volume] in mg/dl 7.5 to non-numeric Serum Health Serum or Plasma mg/dl results) System Anion gap in Serum 14.00 8.00 - Above high Anion Gap [facility] or Plasma mmol/L 12.00 normal Health mmol/L System Glomerular 39.59 Normal (applies GFR [facility] filtration to non-numeric Health rate/1.73 sq results) System M.predicted [Volume Rate/Area] in Serum or Plasma by Creatinine-based formula (CKD-EPI) eGFR will provide clinicians with a more accurate indicator of renal function then the serum creatinine. The eGFR is automa tically calculated from an empiric formula (endorsed by the National Kid[employer] ion) which incorporates age, sex, and race.Clinicians may notice surprisingly low GFR's with serum creatinine valueswithin normal range- particularly in elderly wo men (with low muscle mass).In the hospital setting, the eGFR should add an element of safety in drug dosing, in assessing the risk of IV contrast administration, and in assessing vascular risk.The NKF staging system is as follows:Normal: eGFR >90 with no kidney markersStage 1: eGFR >90 with kidney markers*Stage 2: eGFR 60- 89Stage 3: eGFR 30-59Stage 4: eGFR 15-29Stage 5: eGFR <15 (usually requir ing dialysis)*Markers include: Proteinuria, Hematuria, abnormal imaging-studies, or other blood or urine test abnormalities ID Date Data Source [id number] 04/12/2015 01:26:00 AM EST [facility] Name Value Range Interpretation Description Data Sup porting Code Source(s) Document(s ) Acetone, Negative Negative Normal (applies Acetone, [facility] Serum to non-numeric Serum Health Qualitative results) Qualitative System ID Date Data Source [id number] 04/11/2015 02:53:00 PM EST [facility] Name Value Range Interpretation Description Data Sup porting Code Source(s) Document(s ) Sodium 131 137 - Below low normal Sodium, Serum [facility] [Moles/volum mmol/L 145 Health System e] in Serum mmol/L or Plasma Potassium 3.9 3.6 - Normal (applies Potassium, [facility] [Mass/volume mmol/L 5.0 to non-numeric Serum Health Syste m ] in Serum mmol/L results) or Plasma Chloride 99 98 - 107 Normal (applies Chloride, [facility] [Moles/volum mmol/L mmol/L to non-numeric Serum Health Syste m e] in Serum results) or Plasma Carbon 19.0 22.0 - Below low normal CO2, Serum [facility] dioxide, mmol/L 30.0 Health System total mmol/L [Moles/volum e] in Serum or Plasma Total 7.4 6.3 - Normal (applies Total Protein [facility] Protein mg/dl 8.2 to non-numeric Health System mg/dl results) Glucose 553 65 - 105 Above upper panic Glucose, Serum [facility] [Mass/volume mg/dL mg/dL limits Health System ] in Serum or Plasma Result Reporting|Telephone|GAURANG| 04/11 at 4:15 PMCalled to:Maxx Name:Rajinder by:GAURANG 04/11/2015 / 4:14 PM Urea nitrogen 18 mg/dl 7 - 18 Normal (applies Blood Urea [facility] [Mass/volume] in mg/dl to non-numeric Nitrogen, Health S yste Serum or Plasma results) Serum Creatinine 1.63 mg/dl 0.70 - Above high Creatinine, [facility] [Mass/volume] in 1.20 normal Serum Health System Serum or Plasma mg/dl Alkaline phosphatase 138 {IU/L} 38 - 126 Above high Alkaline [facility] isoenzymes [Enzymatic IU/L normal Phosphatase, Healt h System activity/volume] in Serum Serum or Plasma by Heat stability Bilirubin.total 0.3 mg/dl 0.2 - 1.3 Normal (applies Bilirubin, [facility] [Mass/volume] in mg/dl to non-numeric Serum Total Health System Serum or Plasma results) Direct Bilirubin 0.2 mg/dl 0.0 - 0.4 Normal (applies Direct [facility] mg/dl to non-numeric Bilirubin [facility] System results) Aspartate 35 {IU/L} 5 - 40 Normal (applies Aspartate [facility] aminotransferase IU/L to non-numeric Transaminase, Heal th System [Enzymatic results) Serum activity/volume] in Serum or Plasma by With P-5'-P Albumin [Mass/volume] 3.4 3.9 - 5.0 Below low Albumin, Serum [facility] in Serum or Plasma {gm/dl} gm/dl normal Health Syst em I. Phosphorus 2.6 mg/dl 2.5 - 4.5 Normal (applies I. Phosphorus [facility] mg/dl to non-numeric Health System results) Alanine 33 {IU/L} 7 - 56 Normal (applies Alanine [facility] aminotransferase IU/L to non-numeric Aminotransfera Hea lt System [Enzymatic results) se, Serum activity/volume] in Serum or Plasma Calcium [Mass/volume] 8.0 mg/dl 8.4 - Below low Calcium, Total [facility] in Serum or Plasma 10.2 normal Serum Health Syst em mg/dl A/G Ratio 0.85 Normal (applies A/G Ratio [facility] to non-numeric Health System results) Urate [Mass/volume] 4.1 mg/dl 2.5 - 7.5 Normal (applies Uric Acid, [facility] in Serum or Plasma mg/dl to non-numeric Serum Health System results) Anion gap in Serum or 13.00 8.00 - Above high Anion Gap [facility] Plasma mmol/L 12.00 normal Health System mmol/L Glomerular filtration 32.12 Normal (applies GFR [facility] rate/1.73 sq to non-numeric Health Syste m M.predicted [Volume results) Rate/Area] in Serum or Plasma by Creatinine-based formula (CKD-EPI) eGFR will provide clinicians with a more accurate indicator of renal function then the serum creatinine. The eGFR is automa tically calculated from an empiric formula (endorsed by the National Kid[employer] ion) which incorporates age, sex, and race.Clinicians may notice surprisingly low GFR's with serum creatinine valueswithin normal range- particularly in elderly wo men (with low muscle mass).In the hospital setting, the eGFR should add an element of safety in drug dosing, in assessing the risk of IV contrast administration, and in assessing vascular risk.The NKF staging system is as follows:Normal: eGFR >90 with no kidney markersStage 1: eGFR >90 with kidney markers*Stage 2: eGFR 60- 89Stage 3: eGFR 30-59Stage 4: eGFR 15-29Stage 5: eGFR <15 (usually requir ing dialysis)*Markers include: Proteinuria, Hematuria, abnormal imaging-studies, or other blood or urine test abnormalities ID Date Data Source [id number] 04/11/2015 02:53:00 PM EST [facility] Name Value Range Interpretation Description Data Sup porting Code Source(s) Document(s ) Alcohol NON Normal (applies Alcohol Ethyl, [facility] Ethyl, DETECTED to non-numeric Blood Health System Blood None results) Detected ID Date Data Source [id number] 04/11/2015 02:47:00 PM EST [facility] Name Value Range Interpretation Description Data Sup porting Code Source(s) Document(s ) Hepatitis C 25.80 {Ratio} <1.0 Above high Hepatitis C [facility] Ratio Ratio normal Ratio Health System Hepatitis C ReactiveReferen Abnormal Hepatitis C [facility] Viral ce Range: Non (applies to Viral Health Antibody Reactive non-numeric Antibody System Following results) CDC recommendations (MMWR No. 62, 2013), this patient's HCV Antibody Reactive sample will be tested for the presence of HCV RNA by a Nucleic Acid Amplification Test (NAAT) to determine if the patient has an active HCV infection. Test Performed at: [facility], [place] [address] Alvaro Cuba M.D. Result Reporting|Telep dianna|Aide| 04/14/2015 at 11:57 AMCalled to:Josseline Name:Avis adback by:Aide 04/14/2015 / 11:57 AM Hepatitis C <15 Not Normal (applies Hepatitis C [facility] Viral RNA Detected to non-numeric Viral RNA Health results) System Hepatitis C SEE TEXT <1.18 Normal (applies Hepatitis C [facility] Viral RNA Not Detected to non-numeric Viral RNA Health Quantitative Please results) Quantitative System note: There are several scenarios that may cause this combination of results. 1)Patient is not currently actively infected with HCV either because the patient has a resolved HCV infection or the patient has a false positive Ab test and was never infected with HCV. 2)A few patients with circulating anti-HCV antibodies that do not have detectable HCV RNA, may not have completely resolved the infection. These infrequently encountered patients could be carriers of the virus and should be managed according to the current Treatment Guidelines (J Hepatol, 1171-7249, Dec 2010). Please correlate these findings with the patient's clinical history and any other diagnostic findings, including any evidence of liver dysfunction. This test was performed using the CLAIR(R)AmpliPr ep/ CLAIR(R)TaqMan( R)HCV Test, v2.0. The performance characteristics of this assay have been determined by [facility]. Performance characteristics refer to the analytical performance of the test. For more information on this test, go to: http://educatio [email or web address]/faq/FAQ [email or web address] Test Performed at: [facility], [place] [address] Alvaro Cuba M.D. ID Date Data Source [id number] 04/11/2015 02:47:00 PM EST [facility] Name Value Range Interpretation Description Data Sup porting Code Source(s) Document(s ) HIV test, NEGATIVE OR Normal (applies HIV test, [facility] Routine NONREACTIVE to non-numeric Routine Health (antigen Test was results) (antigen and System and performed at antibody antibody [facility] testing) testing) [id number] ID Date Data Source [id number] 04/11/2015 12:40:00 PM EST [facility] Name Value Range Interpretation Description Data Sup porting Code Source(s) Document(s ) Sodium Cancelled Sodium, Serum [facility] [Moles/volume BMP IS Health ] in Serum or CONTAINED System Plasma WITHIN CMP ORDER Potassium Cancelled Potassium, [facility] [Mass/volume] BMP IS Serum Health in Serum or CONTAINED System Plasma WITHIN CMP ORDER Chloride Cancelled Chloride, [facility] [Moles/volume BMP IS Serum Health ] in Serum or CONTAINED System Plasma WITHIN CMP ORDER Carbon Cancelled CO2, Serum [facility] dioxide, BMP IS Health total CONTAINED System [Moles/volume WITHIN CMP ] in Serum or ORDER Plasma Glucose Cancelled Glucose, [facility] [Mass/volume] BMP IS Serum Health in Serum or CONTAINED System Plasma WITHIN CMP ORDER Urea nitrogen Cancelled Blood Urea [facility] [Mass/volume] BMP IS Nitrogen, Health in Serum or CONTAINED Serum System Plasma WITHIN CMP ORDER Creatinine Cancelled Creatinine, [facility] [Mass/volume] BMP IS Serum Health in Serum or CONTAINED System Plasma WITHIN CMP ORDER Calcium Cancelled Calcium, [facility] [Mass/volume] BMP IS Total Serum Health in Serum or CONTAINED System Plasma WITHIN CMP ORDER Anion gap in Cancelled Anion Gap [facility] Serum or BMP IS Health Plasma CONTAINED System WITHIN CMP ORDER ID Date Data Source [id number] 04/11/2015 12:40:00 PM EST [facility] Name Value Range Interpretation Description Data Sup porting Code Source(s) Document(s ) Alcohol Cancelled Alcohol Ethyl, [facility] Ethyl, BMP IS Blood Health System Blood CONTAINED WITHIN CMP ORDER ID Date Data Source [id number] 04/11/2015 08:35:00 AM EST [facility] Name Value Range Interpretation Description Data Sup porting Code Source(s) Document(s ) Acetone, Negative Negative Normal (applies Acetone, [facility] Serum to non-numeric Serum Health Qualitative results) Qualitative System ID Date Data Source [id number] 04/11/2015 05:16:00 AM EST [facility] Name Value Range Interpretation Description Data Sup porting Code Source(s) Document(s ) pH 7.434 7.380 - Normal (applies pH [facility] {pH_units} 7.460 to non-numeric Health pH results) System units Carbon 43.3 32.0 - Normal (applies pCO2, [facility] dioxide {mm_Hg} 46.0 mm to non-numeric Arterial Health [Partial Hg results) System pressure] in Arterial blood Oxygen 66.1 74.0 - Below low normal pO2, Aterial [facility] [Partial {mm_Hg} 108.0 Health pressure] in mm Hg System Arterial blood Base Excess. 3.7 mmol/L -3.0 - Above high Base Excess. [facility] 3.0 normal Health mmol/L System Bicarbonate 28.4 mmol/L 20.0 - Above high HCO3 [facility] [Moles/volume 26.0 normal Health ] in Venous mmol/L System blood TCO2 29.7 mmol/L 24.0 - Normal (applies TCO2 [facility] 30.0 to non-numeric Health mmol/L results) System O2 Saturation 92.3 % 92.0 - Normal (applies O2 Saturation [facility] 96.0 % to non-numeric Health results) System Sodium, WB 122 mmol/L Normal (applies Sodium, WB [facility] to non-numeric Health results) System Potassium, WB 5.3 mmol/L Normal (applies Potassium, WB Ubaldo grace to non-numeric Health results) System Chloride, WB 85 mmol/L Normal (applies Chloride, WB [facility] to non-numeric Health results) System Glucose, WB Cancelled Glucose, WB [facility] RAN Health TWICE/UNABL System E TO RESULT Ionized 1.12 mmol/L Normal (applies Ionized [facility] Calcium to non-numeric Calcium Health results) System ID Date Data Source [id number] 04/11/2015 05:03:00 AM EST [facility] Name Value Range Interpretation Description Data Sup porting Code Source(s) Document(s ) Color Cancelled Color [facility] NO SPECIMEN Health REC. System Appearance of Cancelled Urine [facility] Urine NO SPECIMEN Appearance Health REC. System Specific Cancelled Urine Specific [facility] gravity of NO SPECIMEN [facility] Urine REC. System pH.. Cancelled pH.. [facility] NO SPECIMEN Health REC. System Glucose, UA Cancelled Glucose, UA [facility] NO SPECIMEN Health REC. System Protein Cancelled Protein [facility] [Mass/volume] NO SPECIMEN Health in Serum or REC. System Plasma Bilirubin Cancelled Bilirubin Urine [facility] Urine NO SPECIMEN Health REC. System Urobilinogen Cancelled Urobilinogen UA [facility] [Mass/volume] NO SPECIMEN Health in Urine REC. System Ketones Cancelled Ketones UA [facility] [Mass/volume] NO SPECIMEN Health in Urine REC. System Nitrate+Nitrit Cancelled Nitrite [facility] e NO SPECIMEN Health [Mass/volume] REC. System in Unspecified specimen Leukocyte Cancelled Leukocyte [facility] esterase NO SPECIMEN Esterase Health [Units/volume] REC. Concentration System in Urine Leukocytes Cancelled White Blood [facility] [#/volume] in NO SPECIMEN Cells Health Unspecified REC. System specimen by Automated count Red Blood Cancelled Red Blood Cells [facility] Cells NO SPECIMEN Health REC. System Urine Blood Cancelled Urine Blood [facility] NO SPECIMEN Health REC. System ID Date Data Source [id number] 04/11/2015 05:03:00 AM EST [facility] Name Value Range Interpretation Description Data Sup porting Code Source(s) Document(s ) Leukocytes 6.4 4.8 - Normal (applies WBC Count [facility] [#/volume] in {10^3_uL 10.8 to non-numeric Health Unspecified } 10^3 uL results) System specimen by Automated count Erythrocytes 3.77 3.80 - Below low normal RBC Count [facility] [#/volume] in {10^6_uL 5.20 Health Blood by } 10^6 uL System Automated count Hemoglobin 11.4 12.0 - Below low normal Hemoglobin [facility] [Mass/volume] in {gm/dL} 16.0 Health Blood gm/dL System Hematocrit 33.4 % 36.0 - Below low normal Hematocrit [facility] [Volume 46.0 % Health Fraction] of System Blood Erythrocyte mean 88.6 fl 80.0 - Normal (applies MCV [facility] corpuscular 100.0 to non-numeric Health volume [Entitic fl results) System volume] by Automated count Erythrocyte mean 30.2 pg 26.0 - Normal (applies MCH [facility] corpuscular 34.0 pg to non-numeric Health hemoglobin results) System [Entitic mass] by Automated count Erythrocyte mean 34.1 33.0 - Normal (applies MCHC [facility] corpuscular {gm/dL} 37.0 to non-numeric Health hemoglobin gm/dL results) System concentration [Mass/volume] by Automated count Erythrocyte 12.6 % 11.5 - Normal (applies RDW-CV [facility] distribution 14.5 % to non-numeric Health width [Entitic results) System volume] by Automated count Platelets 205 130 - Normal (applies Platelet [facility] [#/volume] in {10^3_uL 400 to non-numeric Count Health Plasma by } 10^3 uL results) System Automated count Platelet mean 11.5 fl 7.4 - Above high MPV [facility] volume [Entitic 10.4 fl normal Health volume] in Blood System by Automated count Monocytes 0.3 0.3 - Normal (applies Monocyte # [facility] [#/volume] in {10^3_uL 0.9 to non-numeric Health Blood by Manual } 10^3 uL results) System count Eosinophils 0.04 0.05 - Below low normal Eosinophil # [facility] [#/volume] in {10^3_uL 0.30 Health Blood } 10^3 uL System Neutrophils 4.6 2.0 - Normal (applies Neutrophil # [facility] [#/volume] in {10^3_uL 8.1 to non-numeric Health Body fluid } 10^3 uL results) System Basophils 0.01 0.00 - Normal (applies Basophil # [facility] [#/volume] in {10^3_uL 0.10 to non-numeric Health Blood by } 10^3 uL results) System Automated count Lymphocyte # 1.5 1.0 - Normal (applies Lymphocyte # [facility] {10^3_uL 5.5 to non-numeric Health } 10^3 uL results) System Neutrophils/100 71.3 % 0.0 - Normal (applies Neutrophil % Ubaldo grace leukocytes in 120.0 % to non-numeric Health Blood by results) System Automated count Monocytes/100 5.0 % 6.0 - Below low normal Monocyte % [facility] leukocytes in 9.0 % Health Blood System Eosinophils/100 0.6 % 1.0 - Below low normal Eosinophil % [facility] leukocytes in 3.0 % Health Unspecified System specimen Basophils/100 0.2 % 0.0 - Normal (applies Basophil % [facility] leukocytes in 1.0 % to non-numeric Health Unspecified results) System specimen by Manual count Lymphocytes 22.9 % 21.0 - Normal (applies Lymphocyte % [facility] [#/volume] in 51.0 % to non-numeric Health Blood by results) System Automated count ID Date Data Source [id number] 04/11/2015 05:03:00 AM EST [facility] Name Value Range Interpretation Description Data Sup porting Code Source(s) Document(s ) Sodium 118 137 - Below lower panic Sodium, Serum [facility] [Moles/vol mmol/L 145 limits Health System ume] in mmol/L Serum or Plasma Result Reporting|Telephone|HASMUKH MCCAIN| 04/11/2015 at 8:12 AMCalled to:HASMUKH MCCAINTech Name:JalenSEWReadback by :HASMUKH MCCAIN 04/11/2015 / 8:11 AM Potassium 5.5 mmol/L 3.6 - 5.0 Above high Potassium, [facility] [Mass/volume] in mmol/L normal Serum Health System Serum or Plasma Chloride 83 mmol/L 98 - 107 Below low Chloride, Serum [facility] [Moles/volume] in mmol/L normal Health Syste m Serum or Plasma Carbon dioxide, 20.0 mmol/L 22.0 - 30.0 Below low CO2, Serum [facility] total mmol/L normal Health System [Moles/volume] in Serum or Plasma Total Protein 9.3 mg/dl 6.3 - 8.2 Above high Total Protein [facility] mg/dl normal Health System Glucose 964 mg/dL 65 - 105 Above upper Glucose, Serum [facility] [Mass/volume] in mg/dL panic Health System Serum or Plasma limits Result Reporting|Telephone|DR JASMINE| 04/11/2015 at 10:10 AMCalled to:Pearl Name:Rajinder by:LUIS F 04/11/19 16 / 10:09 AM Urea nitrogen 24 mg/dl 7 - 18 Above high Blood Urea [facility] [Mass/volume] in Serum mg/dl normal Nitrogen, Serum H ealth System or Plasma Creatinine 2.30 mg/dl 0.70 - Above high Creatinine, [facility] [Mass/volume] in Serum 1.20 mg/dl normal Serum Health System or Plasma Alkaline phosphatase 150 {IU/L} 38 - 126 Above high Alkaline [facility] isoenzymes [Enzymatic IU/L normal Phosphatase, Healt h System activity/volume] in Serum Serum or Plasma by Heat stability Bilirubin.total 0.6 mg/dl 0.2 - 1.3 Normal Bilirubin, [facility] [Mass/volume] in Serum mg/dl (applies to Serum Total Hea lth System or Plasma non-numeric results) Direct Bilirubin 0.2 mg/dl 0.0 - 0.4 Normal Direct [facility] mg/dl (applies to Bilirubin Health System non-numeric results) Aspartate 58 {IU/L} 5 - 40 Above high Aspartate [facility] aminotransferase IU/L normal Transaminase, Health Sy stem [Enzymatic Serum activity/volume] in Serum or Plasma by With P-5'-P Albumin [Mass/volume] 4.2 3.9 - 5.0 Normal Albumin, Serum [facility] in Serum or Plasma {gm/dl} gm/dl (applies to Health Sy stem non-numeric results) I. Phosphorus 3.8 mg/dl 2.5 - 4.5 Normal I. Phosphorus [facility] mg/dl (applies to Health System non-numeric results) Alanine 45 {IU/L} 7 - 56 Normal Alanine [facility] aminotransferase IU/L (applies to Aminotransferas Healt h System [Enzymatic non-numeric e, Serum activity/volume] in results) Serum or Plasma Calcium [Mass/volume] 9.5 mg/dl 8.4 - 10.2 Normal Calcium, Total [facility] in Serum or Plasma mg/dl (applies to Serum Health Sy stem non-numeric results) A/G Ratio 0.82 Normal A/G Ratio [facility] (applies to Health System non-numeric results) Urate [Mass/volume] in 5.2 mg/dl 2.5 - 7.5 Normal Uric Acid, [facility] Serum or Plasma mg/dl (applies to Serum Health Syste m non-numeric results) Anion gap in Serum or 15.00 8.00 - Above high Anion Gap [facility] Plasma mmol/L 12.00 normal Health System mmol/L Glomerular filtration 21.59 Normal GFR [facility] rate/1.73 sq (applies to Health System M.predicted [Volume non-numeric Rate/Area] in Serum or results) Plasma by Creatinine-based formula (CKD-EPI) eGFR will provide clinicians with a more accurate indicator of renal function then the serum creatinine. The eGFR is automa tically calculated from an empiric formula (endorsed by the National Kidney Foundat ion) which incorporates age, sex, and race.Clinicians may notice surprisingly low GFR's with serum creatinine valueswithin normal range- particularly in elderly wo men (with low muscle mass).In the hospital setting, the eGFR should add an element of safety in drug dosing, in assessing the risk of IV contrast administration, and in assessing vascular risk.The NKF staging system is as follows:Normal: eGFR >90 with no kidney markersStage 1: eGFR >90 with kidney markers*Stage 2: eGFR 60- 89Stage 3: eGFR 30-59Stage 4: eGFR 15-29Stage 5: eGFR <15 (usually requir ing dialysis)*Markers include: Proteinuria, Hematuria, abnormal imaging-studies, or other blood or urine test abnormalities ID Date Data Source [id number] 04/11/2015 05:03:00 AM EST [facility] System Name Value Range Interpretation Description Data Sup porting Code Source(s) Document(s ) Lactic 1.04 0.70 - Normal (applies Lactic Acid, [facility] Acid, {mEq/L} 2.10 to non-numeric Plasma *[facility] Syst em Plasma mEq/L results) [facility] ONLY* *[facility] ONLY* ID Date Data Source [id number] 04/11/2015 05:03:00 AM [facility] Name Value Range Interpretation Description Data Sup porting Code Source(s) Document(s ) Acetone, Negative Negative Normal (applies Acetone, [facility] Serum to non-numeric Serum Health Qualitative results) Qualitative System ID Date Data Source [id number] 02/05/2015 05:53:00 PM [facility] System Name Value Range Interpretation Description Data Sup porting Code Source(s) Document(s ) Glucose 430 65 - 105 Above high normal Glucose, Serum [facility] [Mass/volum mg/dL mg/dL Health System e] in Serum or Plasma ID Date Data Source [id number] 02/05/2015 05:53:00 PM [facility] Name Value Range Interpretation Description Data Sup porting Code Source(s) Document(s ) Acetone, Negative Negative Normal (applies Acetone, [facility] Serum to non-numeric Serum Health Qualitative results) Qualitative System ID Date Data Source [id number] 02/05/2015 06:00:00 AM [facility] Name Value Range Interpretation Description Data Sup porting Code Source(s) Document(s ) Leukocytes 4.4 4.8 - Below low normal WBC Count [facility] [#/volume] in {10^3_uL 10.8 Health Unspecified } 10^3 uL System specimen by Automated count Erythrocytes 3.20 3.80 - Below low normal RBC Count [facility] [#/volume] in {10^6_uL 5.20 Health Blood by } 10^6 uL System Automated count Hemoglobin 10.2 12.0 - Below low normal Hemoglobin [facility] [Mass/volume] in {gm/dL} 16.0 Health Blood gm/dL System Hematocrit 29.3 % 36.0 - Below low normal Hematocrit [facility] [Volume 46.0 % Health Fraction] of System Blood Erythrocyte mean 91.6 fl 80.0 - Normal (applies MCV [facility] corpuscular 100.0 to non-numeric Health volume [Entitic fl results) System volume] by Automated count Erythrocyte mean 31.9 pg 26.0 - Normal (applies MCH [facility] corpuscular 34.0 pg to non-numeric Health hemoglobin results) System [Entitic mass] by Automated count Erythrocyte mean 34.8 33.0 - Normal (applies MCHC [facility] corpuscular {gm/dL} 37.0 to non-numeric Health hemoglobin gm/dL results) System concentration [Mass/volume] by Automated count Erythrocyte 12.3 % 11.5 - Normal (applies RDW-CV [facility] distribution 14.5 % to non-numeric Health width [Entitic results) System volume] by Automated count Platelets 154 130 - Normal (applies Platelet [facility] [#/volume] in {10^3_uL 400 to non-numeric Count Health Plasma by } 10^3 uL results) System Automated count Platelet mean 12.5 fl 7.4 - Above high MPV [facility] volume [Entitic 10.4 fl normal Health volume] in Blood System by Automated count Monocytes 0.2 0.3 - Below low normal Monocyte # [facility] [#/volume] in {10^3_uL 0.9 Health Blood by Manual } 10^3 uL System count Eosinophils 0.03 0.05 - Below low normal Eosinophil # [facility] [#/volume] in {10^3_uL 0.30 Health Blood } 10^3 uL System Neutrophils 2.6 2.0 - Normal (applies Neutrophil # [facility] [#/volume] in {10^3_uL 8.1 to non-numeric Health Body fluid } 10^3 uL results) System Basophils 0.01 0.00 - Normal (applies Basophil # [facility] [#/volume] in {10^3_uL 0.10 to non-numeric Health Blood by } 10^3 uL results) System Automated count Lymphocyte # 1.5 1.0 - Normal (applies Lymphocyte # [facility] {10^3_uL 5.5 to non-numeric Health } 10^3 uL results) System Neutrophils/100 59.6 % 0.0 - Normal (applies Neutrophil % Ubaldo grace leukocytes in 120.0 % to non-numeric Health Blood by results) System Automated count Monocytes/100 5.2 % 6.0 - Below low normal Monocyte % [facility] leukocytes in 9.0 % Health Blood System Eosinophils/100 0.7 % 1.0 - Below low normal Eosinophil % [facility] leukocytes in 3.0 % Health Unspecified System specimen Basophils/100 0.2 % 0.0 - Normal (applies Basophil % [facility] leukocytes in 1.0 % to non-numeric Health Unspecified results) System specimen by Manual count Lymphocytes 34.3 % 21.0 - Normal (applies Lymphocyte % [facility] [#/volume] in 51.0 % to non-numeric Health Blood by results) System Automated count ID Date Data Source [id number] 02/05/2015 06:00:00 AM EST [facility] System Name Value Range Interpretation Description Data Sup porting Code Source(s) Document(s ) Sodium 134 137 - Below low normal Sodium, Serum [facility] [Moles/volume] in mmol/L 145 Health Serum or Plasma mmol/L System Potassium 4.1 3.6 - Normal (applies Potassium, [facility] [Mass/volume] in mmol/L 5.0 to non-numeric Serum Health Serum or Plasma mmol/L results) System Chloride 100 98 - Normal (applies Chloride, [facility] [Moles/volume] in mmol/L 107 to non-numeric Serum Health Serum or Plasma mmol/L results) System Carbon dioxide, 24.0 22.0 - Normal (applies CO2, Serum [facility] [place] total mmol/L 30.0 to non-numeric Health [Moles/volume] in mmol/L results) System Serum or Plasma Total Protein 6.8 6.3 - Normal (applies Total Protein [facility] [place] mg/dl 8.2 to non-numeric Health mg/dl results) System Glucose 146 65 - Above high Glucose, [facility] [Mass/volume] in mg/dL 105 normal Serum Health Serum or Plasma mg/dL System Urea nitrogen 13 7 - 18 Normal (applies Blood Urea [place] [facility] [Mass/volume] in mg/dl mg/dl to non-numeric Nitrogen, Health Serum or Plasma results) Serum System Creatinine 1.09 0.70 - Normal (applies Creatinine, [facility] [Mass/volume] in mg/dl 1.20 to non-numeric Serum Health Serum or Plasma mg/dl results) System Alkaline 65 38 - Normal (applies Alkaline [facility] phosphatase {IU/L} 126 to non-numeric Phosphatase, Health isoenzymes IU/L results) Serum System [Enzymatic activity/volume] in Serum or Plasma by Heat stability Bilirubin.total 0.2 0.2 - Normal (applies Bilirubin, [facility] [Mass/volume] in mg/dl 1.3 to non-numeric Serum Total Health Serum or Plasma mg/dl results) System Direct Bilirubin 0.1 0.0 - Normal (applies Direct [place] mg/dl 0.4 to non-numeric Bilirubin [facility] mg/dl results) System Aspartate 43 5 - 40 Above high Aspartate [facility] aminotransferase {IU/L} IU/L normal Transaminase, Health [Enzymatic Serum System activity/volume] in Serum or Plasma by With P-5'-P Albumin 3.1 3.9 - Below low normal Albumin, [facility] [Mass/volume] in {gm/dl} 5.0 Serum Health Serum or Plasma gm/dl System I. Phosphorus 3.9 2.5 - Normal (applies I. Phosphorus [facility] mg/dl 4.5 to non-numeric Health mg/dl results) System Alanine 45 7 - 56 Normal (applies Alanine [facility] aminotransferase {IU/L} IU/L to non-numeric Aminotransfer Heal th [Enzymatic results) ase, Serum System activity/volume] in Serum or Plasma Calcium 8.7 8.4 - Normal (applies Calcium, [facility] [Mass/volume] in mg/dl 10.2 to non-numeric Total Serum Health Serum or Plasma mg/dl results) System A/G Ratio 0.84 Normal (applies A/G Ratio [facility] to non-numeric Health results) System Urate 3.8 2.5 - Normal (applies Uric Acid, [facility] [Mass/volume] in mg/dl 7.5 to non-numeric Serum Health Serum or Plasma mg/dl results) System Anion gap in Serum 10.00 8.00 - Normal (applies Anion Gap Ubaldo grace or Plasma mmol/L 12.00 to non-numeric Health mmol/L results) System Glomerular 51.14 Normal (applies GFR [facility] filtration to non-numeric Health rate/1.73 sq results) System M.predicted [Volume Rate/Area] in Serum or Plasma by Creatinine-based formula (CKD-EPI) eGFR will provide clinicians with a more accurate indicator of renal function then the serum creatinine. The eGFR is automa tically calculated from an empiric formula (endorsed by the [employer] ion) which incorporates age, sex, and race.Clinicians may notice surprisingly low GFR's with serum creatinine valueswithin normal range- particularly in elderly wo men (with low muscle mass).In the hospital setting, the eGFR should add an element of safety in drug dosing, in assessing the risk of IV contrast administration, and in assessing vascular risk.The NKF staging system is as follows:Normal: eGFR >90 with no kidney markersStage 1: eGFR >90 with kidney markers*Stage 2: eGFR 60- 89Stage 3: eGFR 30-59Stage 4: eGFR 15-29Stage 5: eGFR <15 (usually requir ing dialysis)*Markers include: Proteinuria, Hematuria, abnormal imaging-studies, or other blood or urine test abnormalities ID Date Data Source [id number] 02/04/2015 06:00:00 AM EST [facility] System Name Value Range Interpretation Description Data Sup porting Code Source(s) Document(s ) Lactic 1.85 0.70 - Normal (applies Lactic Acid, [facility] Acid, {mEq/L} 2.10 to non-numeric Plasma *[facility] Syst em Plasma mEq/L results) KI ONLY* *[facility] KI ONLY* ID Date Data Source [id number] 02/04/2015 06:00:00 AM [facility] System Name Value Range Interpretation Description Data Sup porting Code Source(s) Document(s ) Prothrombin 10.00 9.70 - Normal (applies Prothrombin [facility] time (PT) {seconds 11.80 to non-numeric time (PT) Health } seconds results) System INR in Blood 0.96 0.70 - Normal (applies INR Result [facility] by Coagulation {Ratio} 1.10 to non-numeric Health assay Ratio results) System Normal = 0.7-1.1Therapeutic = 2.0-3.0Mec hanical Heart = 3.0-4.5 ID Date Data Source [id number] 02/04/2015 06:00:00 AM EST [facility] System Name Value Range Interpretation Description Data Sup porting Code Source(s) Document(s ) Leukocytes 5.4 4.8 - Normal (applies WBC Count [facility] [#/volume] in {10^3_uL 10.8 to non-numeric Health Unspecified } 10^3 uL results) System specimen by Automated count Erythrocytes 2.93 3.80 - Below low normal RBC Count [facility] [#/volume] in {10^6_uL 5.20 Health Blood by } 10^6 uL System Automated count Hemoglobin 9.4 12.0 - Below low normal Hemoglobin [facility] [Mass/volume] in {gm/dL} 16.0 Health Blood gm/dL System Hematocrit 26.6 % 36.0 - Below low normal Hematocrit [facility] [Volume 46.0 % Health Fraction] of System Blood Erythrocyte mean 90.8 fl 80.0 - Normal (applies MCV [place] corpuscular 100.0 to non-numeric Health volume [Entitic fl results) System volume] by Automated count Erythrocyte mean 32.1 pg 26.0 - Normal (applies MCH [place] corpuscular 34.0 pg to non-numeric Health hemoglobin results) System [Entitic mass] by Automated count Erythrocyte mean 35.3 33.0 - Normal (applies MCHC [place] corpuscular {gm/dL} 37.0 to non-numeric Health hemoglobin gm/dL results) System concentration [Mass/volume] by Automated count Erythrocyte 12.2 % 11.5 - Normal (applies RDW-CV [facility] distribution 14.5 % to non-numeric Health width [Entitic results) System volume] by Automated count Platelets 132 130 - Normal (applies Platelet [facility] [#/volume] in {10^3_uL 400 to non-numeric Count Health Plasma by } 10^3 uL results) System Automated count Platelet mean 12.0 fl 7.4 - Above high MPV [facility] volume [Entitic 10.4 fl normal Health volume] in Blood System by Automated count Monocytes 0.3 0.3 - Normal (applies Monocyte # [facility] [#/volume] in {10^3_uL 0.9 to non-numeric Health Blood by Manual } 10^3 uL results) System count Eosinophils 0.03 0.05 - Below low normal Eosinophil # [place] [#/volume] in {10^3_uL 0.30 Health Blood } 10^3 uL System Neutrophils 3.3 2.0 - Normal (applies Neutrophil # [place] [#/volume] in {10^3_uL 8.1 to non-numeric Health Body fluid } 10^3 uL results) System Basophils 0.01 0.00 - Normal (applies Basophil # [facility] [#/volume] in {10^3_uL 0.10 to non-numeric Health Blood by } 10^3 uL results) System Automated count Lymphocyte # 1.7 1.0 - Normal (applies Lymphocyte # [place] [facility] {10^3_uL 5.5 to non-numeric Health } 10^3 uL results) System Neutrophils/100 61.9 % 0.0 - Normal (applies Neutrophil % Ubaldo grace leukocytes in 120.0 % to non-numeric Health Blood by results) System Automated count Monocytes/100 6.3 % 6.0 - Normal (applies Monocyte % [place] leukocytes in 9.0 % to non-numeric Health Blood results) System Eosinophils/100 0.6 % 1.0 - Below low normal Eosinophil % [facility] leukocytes in 3.0 % Health Unspecified System specimen Basophils/100 0.2 % 0.0 - Normal (applies Basophil % [place] leukocytes in 1.0 % to non-numeric Health Unspecified results) System specimen by Manual count Lymphocytes 31.0 % 21.0 - Normal (applies Lymphocyte % [place] [#/volume] in 51.0 % to non-numeric Health Blood by results) System Automated count ID Date Data Source [id number] 02/04/2015 06:00:00 AM EST [facility] System Name Value Range Interpretation Description Data Sup porting Code Source(s) Document(s ) Sodium 134 137 - Below low normal Sodium, Serum [place] [facility] [Moles/volume] in mmol/L 145 Health Serum or Plasma mmol/L System Potassium 3.6 3.6 - Normal (applies Potassium, [facility] [Mass/volume] in mmol/L 5.0 to non-numeric Serum Health Serum or Plasma mmol/L results) System Chloride 103 98 - Normal (applies Chloride, [facility] [Moles/volume] in mmol/L 107 to non-numeric Serum Health Serum or Plasma mmol/L results) System Carbon dioxide, 21.0 22.0 - Below low normal CO2, Serum [place] total mmol/L 30.0 Health [Moles/volume] in mmol/L System Serum or Plasma Total Protein 6.8 6.3 - Normal (applies Total Protein [place] mg/dl 8.2 to non-numeric Health mg/dl results) System Glucose 85 65 - Normal (applies Glucose, [facility] [Mass/volume] in mg/dL 105 to non-numeric Serum Health Serum or Plasma mg/dL results) System Urea nitrogen 14 7 - 18 Normal (applies Blood Urea [place] [facility] [Mass/volume] in mg/dl mg/dl to non-numeric Nitrogen, Health Serum or Plasma results) Serum System Creatinine 1.02 0.70 - Normal (applies Creatinine, [facility] [Mass/volume] in mg/dl 1.20 to non-numeric Serum Health Serum or Plasma mg/dl results) System Alkaline 79 38 - Normal (applies Alkaline [facility] phosphatase {IU/L} 126 to non-numeric Phosphatase, Health isoenzymes IU/L results) Serum System [Enzymatic activity/volume] in Serum or Plasma by Heat stability Bilirubin.total 0.2 0.2 - Normal (applies Bilirubin, [place] [Mass/volume] in mg/dl 1.3 to non-numeric Serum Total Health Serum or Plasma mg/dl results) System Direct Bilirubin 0.1 0.0 - Normal (applies Direct [place] mg/dl 0.4 to non-numeric Bilirubin Health mg/dl results) System Aspartate 54 5 - 40 Above high Aspartate [facility] aminotransferase {IU/L} IU/L normal Transaminase, Health [Enzymatic Serum System activity/volume] in Serum or Plasma by With P-5'-P Albumin 3.2 3.9 - Below low normal Albumin, [facility] [Mass/volume] in {gm/dl} 5.0 Serum Health Serum or Plasma gm/dl System I. Phosphorus 3.4 2.5 - Normal (applies I. Phosphorus [place] mg/dl 4.5 to non-numeric Health mg/dl results) System Alanine 61 7 - 56 Above high Alanine [facility] aminotransferase {IU/L} IU/L normal Aminotransfer Health [Enzymatic ase, Serum System activity/volume] in Serum or Plasma Calcium 8.6 8.4 - Normal (applies Calcium, [facility] [Mass/volume] in mg/dl 10.2 to non-numeric Total Serum Health Serum or Plasma mg/dl results) System A/G Ratio 0.89 Normal (applies A/G Ratio [facility] to non-numeric Health results) System Urate 4.0 2.5 - Normal (applies Uric Acid, [facility] [Mass/volume] in mg/dl 7.5 to non-numeric Serum Health Serum or Plasma mg/dl results) System Anion gap in Serum 10.00 8.00 - Normal (applies Anion Gap Ubaldo grace or Plasma mmol/L 12.00 to non-numeric Health mmol/L results) System Glomerular 55.21 Normal (applies GFR [facility] filtration to non-numeric Health rate/1.73 sq results) System M.predicted [Volume Rate/Area] in Serum or Plasma by Creatinine-based formula (CKD-EPI) eGFR will provide clinicians with a more accurate indicator of renal function then the serum creatinine. The eGFR is automa tically calculated from an empiric formula (endorsed by the [employer] ion) which incorporates age, sex, and race.Clinicians may notice surprisingly low GFR's with serum creatinine valueswithin normal range- particularly in elderly wo men (with low muscle mass).In the hospital setting, the eGFR should add an element of safety in drug dosing, in assessing the risk of IV contrast administration, and in assessing vascular risk.The NKF staging system is as follows:Normal: eGFR >90 with no kidney markersStage 1: eGFR >90 with kidney markers*Stage 2: eGFR 60- 89Stage 3: eGFR 30-59Stage 4: eGFR 15-29Stage 5: eGFR <15 (usually requir ing dialysis)*Markers include: Proteinuria, Hematuria, abnormal imaging-studies, or other blood or urine test abnormalities ID Date Data Source [id number] 02/03/2015 11:10:00 PM EST [facility] System Name Value Range Interpretation Description Data Sup porting Code Source(s) Document(s ) Sodium 131 137 - Below low normal Sodium, Serum [place] [facility] [Moles/vol mmol/L 145 Health System ume] in mmol/L Serum or Plasma ok Potassium 3.9 mmol/L 3.6 - 5.0 Normal (applies Potassium, [facility] [Mass/volume] in mmol/L to non-numeric Serum Health S ystem Serum or Plasma results) ok Chloride 97 mmol/L 98 - 107 Below low Chloride, [facility] [Moles/volume] in mmol/L normal Serum Health Syste m Serum or Plasma ok Carbon dioxide, 22.0 mmol/L 22.0 - 30.0 Normal (applies CO2, Serum [facility] total [Moles/volume] mmol/L to non-numeric Heal th System in Serum or Plasma results) Glucose 515 mg/dL 65 - 105 Above upper Glucose, [facility] [Mass/volume] in mg/dL panic limits Serum Health Sys tem Serum or Plasma okResult Reporting|Telephone|mariana clement|02/03/2015 at 11:44 PMCalled to:mariana Medina Name:[email or web address] by:mariana lewis04/05/2014 / 11:43 PM Urea nitrogen 16 mg/dl 7 - 18 Normal (applies Blood Urea [place] [facility] [Mass/volume] in mg/dl to non-numeric Nitrogen, Health S yste Serum or Plasma results) Serum Creatinine 1.51 mg/dl 0.70 - Above high Creatinine, [facility] [Mass/volume] in 1.20 mg/dl normal Serum Health Syste m Serum or Plasma Calcium 8.5 mg/dl 8.4 - 10.2 Normal (applies Calcium, Total [place] [Mass/volume] in mg/dl to non-numeric Serum Health S yste Serum or Plasma results) Anion gap in Serum 12.00 8.00 - Normal (applies Anion Gap Ubaldo grace or Plasma mmol/L 12.00 to non-numeric Health System mmol/L results) ID Date Data Source [id number] 02/03/2015 06:00:00 AM EST [facility] System Name Value Range Interpretation Description Data Sup porting Code Source(s) Document(s ) Lactic 2.25 0.70 - Above high normal Lactic Acid, [place] [facility] Acid, {mEq/L} 2.10 Plasma *[facility] Plasma mEq/L [facility] ONLY* *[facility] KI ONLY* ID Date Data Source [id number] 02/03/2015 12:36:00 AM EST [facility] System Name Value Range Interpretation Description Data Sup porting Code Source(s) Document(s ) Leukocytes 5.9 4.8 - Normal (applies WBC Count [facility] [#/volume] in {10^3_uL 10.8 to non-numeric Health Unspecified } 10^3 uL results) System specimen by Automated count Erythrocytes 3.80 3.80 - Normal (applies RBC Count [facility] [#/volume] in {10^6_uL 5.20 to non-numeric Health Blood by } 10^6 uL results) System Automated count Hemoglobin 12.0 12.0 - Normal (applies Hemoglobin [facility] [Mass/volume] in {gm/dL} 16.0 to non-numeric Health Blood gm/dL results) System Hematocrit 34.9 % 36.0 - Below low normal Hematocrit [facility] [Volume 46.0 % Health Fraction] of System Blood Erythrocyte mean 91.8 fl 80.0 - Normal (applies MCV [place] corpuscular 100.0 to non-numeric Health volume [Entitic fl results) System volume] by Automated count Erythrocyte mean 31.6 pg 26.0 - Normal (applies MCH [place] corpuscular 34.0 pg to non-numeric Health hemoglobin results) System [Entitic mass] by Automated count Erythrocyte mean 34.4 33.0 - Normal (applies MCHC [place] corpuscular {gm/dL} 37.0 to non-numeric Health hemoglobin gm/dL results) System concentration [Mass/volume] by Automated count Erythrocyte 12.3 % 11.5 - Normal (applies RDW-CV [facility] distribution 14.5 % to non-numeric Health width [Entitic results) System volume] by Automated count Platelets 169 130 - Normal (applies Platelet [facility] [#/volume] in {10^3_uL 400 to non-numeric Count Health Plasma by } 10^3 uL results) System Automated count Platelet mean 12.4 fl 7.4 - Above high MPV [facility] volume [Entitic 10.4 fl normal Health volume] in Blood System by Automated count Monocytes 0.2 0.3 - Below low normal Monocyte # [facility] [#/volume] in {10^3_uL 0.9 Health Blood by Manual } 10^3 uL System count Eosinophils 0.03 0.05 - Below low normal Eosinophil # [place] [#/volume] in {10^3_uL 0.30 Health Blood } 10^3 uL System Neutrophils 3.7 2.0 - Normal (applies Neutrophil # [place] [facility] [#/volume] in {10^3_uL 8.1 to non-numeric Health Body fluid } 10^3 uL results) System Basophils 0.02 0.00 - Normal (applies Basophil # [facility] [#/volume] in {10^3_uL 0.10 to non-numeric Health Blood by } 10^3 uL results) System Automated count Lymphocyte # 1.9 1.0 - Normal (applies Lymphocyte # [facility] [facility] {10^3_uL 5.5 to non-numeric Health } 10^3 uL results) System Neutrophils/100 62.8 % 0.0 - Normal (applies Neutrophil % Ubaldo grace leukocytes in 120.0 % to non-numeric Health Blood by results) System Automated count Monocytes/100 3.9 % 6.0 - Below low normal Monocyte % [facility] leukocytes in 9.0 % Health Blood System Eosinophils/100 0.5 % 1.0 - Below low normal Eosinophil % [facility] leukocytes in 3.0 % Health Unspecified System specimen Basophils/100 0.3 % 0.0 - Normal (applies Basophil % [facility] leukocytes in 1.0 % to non-numeric Health Unspecified results) System specimen by Manual count Lymphocytes 32.5 % 21.0 - Normal (applies Lymphocyte % [place] [facility] [#/volume] in 51.0 % to non-numeric Health Blood by results) System Automated count ID Date Data Source [id number] 02/03/2015 12:36:00 AM EST [facility] System Name Value Range Interpretation Description Data Sup porting Code Source(s) Document(s ) Thyrotropin 1.234 0.380 - Normal (applies Thyroid [facility] [Mass/volume] {mIU/mL} 6.150 to non-numeric Stimulating Health in Serum or mIU/mL results) Hormone, System Plasma Serum ID Date Data Source [id number] 02/03/2015 12:36:00 AM EST [facility] System Name Value Range Interpretation Description Data Sup porting Code Source(s) Document(s ) Sodium 139 137 - Normal (applies Sodium, Serum [facility] [Moles/volume] in mmol/L 145 to non-numeric Health Serum or Plasma mmol/L results) System Potassium 5.0 3.6 - Normal (applies Potassium, [facility] [Mass/volume] in mmol/L 5.0 to non-numeric Serum Health Serum or Plasma mmol/L results) System Chloride 106 98 - Normal (applies Chloride, [facility] [Moles/volume] in mmol/L 107 to non-numeric Serum Health Serum or Plasma mmol/L results) System Carbon dioxide, 21.0 22.0 - Below low normal CO2, Serum [place] total mmol/L 30.0 Health [Moles/volume] in mmol/L System Serum or Plasma Total Protein 8.5 6.3 - Above high Total Protein [facility] mg/dl 8.2 normal Health mg/dl System Glucose 115 65 - Above high Glucose, [facility] [Mass/volume] in mg/dL 105 normal Serum Health Serum or Plasma mg/dL System Urea nitrogen 13 7 - 18 Normal (applies Blood Urea [facility] [facility] [Mass/volume] in mg/dl mg/dl to non-numeric Nitrogen, Health Serum or Plasma results) Serum System Creatinine 1.18 0.70 - Normal (applies Creatinine, [facility] [Mass/volume] in mg/dl 1.20 to non-numeric Serum Health Serum or Plasma mg/dl results) System Alkaline 104 38 - Normal (applies Alkaline [facility] phosphatase {IU/L} 126 to non-numeric Phosphatase, Health isoenzymes IU/L results) Serum System [Enzymatic activity/volume] in Serum or Plasma by Heat stability Bilirubin.total 0.3 0.2 - Normal (applies Bilirubin, [facility] [Mass/volume] in mg/dl 1.3 to non-numeric Serum Total Health Serum or Plasma mg/dl results) System Direct Bilirubin 0.1 0.0 - Normal (applies Direct [place] mg/dl 0.4 to non-numeric Bilirubin Health mg/dl results) System Aspartate 88 5 - 40 Above high Aspartate [facility] aminotransferase {IU/L} IU/L normal Transaminase, Health [Enzymatic Serum System activity/volume] in Serum or Plasma by With P-5'-P Albumin 3.9 3.9 - Normal (applies Albumin, [facility] [Mass/volume] in {gm/dl} 5.0 to non-numeric Serum Health Serum or Plasma gm/dl results) System I. Phosphorus 3.3 2.5 - Normal (applies I. Phosphorus [facility] mg/dl 4.5 to non-numeric Health mg/dl results) System Alanine 79 7 - 56 Above high Alanine [facility] aminotransferase {IU/L} IU/L normal Aminotransfer Health [Enzymatic ase, Serum System activity/volume] in Serum or Plasma Calcium 9.2 8.4 - Normal (applies Calcium, [facility] [Mass/volume] in mg/dl 10.2 to non-numeric Total Serum Health Serum or Plasma mg/dl results) System A/G Ratio 0.85 Normal (applies A/G Ratio [facility] to non-numeric Health results) System Urate 4.1 2.5 - Normal (applies Uric Acid, [facility] [Mass/volume] in mg/dl 7.5 to non-numeric Serum Health Serum or Plasma mg/dl results) System Anion gap in Serum 12.00 8.00 - Normal (applies Anion Gap Ubaldo grace or Plasma mmol/L 12.00 to non-numeric Health mmol/L results) System Glomerular 46.66 Normal (applies GFR [facility] filtration to non-numeric Health rate/1.73 sq results) System M.predicted [Volume Rate/Area] in Serum or Plasma by Creatinine-based formula (CKD-EPI) eGFR will provide clinicians with a more accurate indicator of renal function then the serum creatinine. The eGFR is automa tically calculated from an empiric formula (endorsed by the National Kid[employer] ion) which incorporates age, sex, and race.Clinicians may notice surprisingly low GFR's with serum creatinine valueswithin normal range- particularly in elderly wo men (with low muscle mass).In the hospital setting, the eGFR should add an element of safety in drug dosing, in assessing the risk of IV contrast administration, and in assessing vascular risk.The NKF staging system is as follows:Normal: eGFR >90 with no kidney markersStage 1: eGFR >90 with kidney markers*Stage 2: eGFR 60- 89Stage 3: eGFR 30-59Stage 4: eGFR 15-29Stage 5: eGFR <15 (usually requir ing dialysis)*Markers include: Proteinuria, Hematuria, abnormal imaging-studies, or other blood or urine test abnormalities ID Date Data Source [id number] 02/03/2015 12:36:00 AM EST [facility] System Name Value Range Interpretation Description Data Sup porting Code Source(s) Document(s ) Triglyceride 67 mg/dl 35 - 135 Normal (applies Triglycerides [facility] [Mass/volume] mg/dl to non-numeric , Serum Health in Serum or results) System Plasma Optimal = < 100 mg/dLBoderline High = 15 0 - 199 mg/dLHigh = 200 - 499 mg/dLVery High = > 500 mg/dL Cholesterol 145 mg/dl *.* mg/dl Normal (applies Cholesterol, [facility] [Mass/volume] in to non-numeric Serum Health S ystem Serum or Plasma results) <200 mg/dL = [id number] - 239 md/dL = Borderline>240 mg/dL = High Risk Cholesterol in HDL 60.0 mg/dL 32.0 - Normal (applies HDL Choleste rol, [facility] [Mass/volume] in 75.0 mg/dL to non-numeric Serum Health System Serum or Plasma results) Cholesterol in LDL 71.6 mg/dL Normal (applies Low Density [facility] [Mass/volume] in to non-numeric Lipoprotein, Healt h System Serum or Plasma results) Calculated OPTIMAL: LESS THAN 100 mg/dLNEAR OPTIMAL : 100 - 129 mg/dLBODERLINE HIGH: 130 - 150 mg/dL Cholesterol in VLDL 13.4 Normal (applies to VLDL, Serum [facility] [Mass/volume] in non-numeric System Serum or Plasma results) CHD Risk 2.42 2.40 - Normal (applies to CHD Risk [facility] 5.30 non-numeric System results) ID Date Data Source [id number] 02/03/2015 12:36:00 AM EST [facility] System Name Value Range Interpretation Code Description Data Nyla rce(s) Supporting Document(s ) HbA1C 13.8 % 4.6 - 6.2 Above high normal HbA1C [facility] % Health System ID Date Data Source [id number] 02/03/2015 12:16:00 AM EST [facility] Name Value Range Interpretation Description Data Sup porting Code Source(s) Document(s ) Creatine 41 30 - 135 Normal (applies Creatine [facility] kinase.MB {IU/L} IU/L to non-numeric Kinase, Serum Health Syst em [Mass/volum results) e] in Serum or Plasma ID Date Data Source [id number] 02/02/2015 10:30:00 PM EST [facility] System Name Value Range Interpretation Description Data Sup porting Code Source(s) Document(s ) Alcohol NON-DETECTE Normal (applies Alcohol Ethyl, [facility] Ethyl, D None to non-numeric Blood [facility] Blood Detected results) ID Date Data Source [id number] 02/02/2015 10:13:00 PM EST [facility] Name Value Range Interpretation Description Data Sup porting Code Source(s) Document(s ) Sodium 135 137 - Below low normal Sodium, Serum [facility] [Moles/vol mmol/L 145 Health System ume] in mmol/L Serum or Plasma VERIFIED Potassium 3.0 mmol/L 3.6 - 5.0 Below low Potassium, [facility] [Mass/volume] in mmol/L normal Serum Health System Serum or Plasma VERIFIED Chloride 97 mmol/L 98 - 107 Below low Chloride, [facility] [Moles/volume] in mmol/L normal Serum Health Syste Serum or Plasma VERIFIED Carbon dioxide, 23.0 mmol/L 22.0 - 30.0 Normal (applies CO2, Serum [facility] total [Moles/volume] mmol/L to non-numeric [facility]al th System in Serum or Plasma results) Glucose 443 mg/dL 65 - 105 Above high Glucose, [facility] [Mass/volume] in mg/dL normal Serum [facility] System Serum or Plasma VERIFIED Urea nitrogen 17 mg/dl 7 - 18 Normal (applies Blood Urea [facility] [Mass/volume] in mg/dl to non-numeric Nitrogen, Health S ystem Serum or Plasma results) Serum Creatinine 1.49 mg/dl 0.70 - Above high Creatinine, [facility] [Mass/volume] in 1.20 mg/dl normal Serum Health Syste Serum or Plasma VERIFIED Calcium 9.0 mg/dl 8.4 - 10.2 Normal (applies Calcium, [facility] [Mass/volume] in mg/dl to non-numeric Total Serum [facility] Serum or Plasma results) Anion gap in Serum 15.00 8.00 - Above high Anion Gap [facility] or Plasma mmol/L 12.00 normal Health System mmol/L ID Date Data Source [id number] 02/02/2015 10:13:00 PM EST [facility] System Name Value Range Interpretation Description Data Sup porting Code Source(s) Document(s ) Lactic 3.95 0.70 - Above high normal Lactic Acid, [facility] Acid, {mEq/L} 2.10 Plasma *[facility] Plasma mEq/L KI ONLY* *[facility] KI ONLY* VERIFIED ID Date Data Source [id number] 02/02/2015 08:58:00 PM EST [facility] System Name Value Range Interpretation Code Description Data Nyla rce(s) Supporting Document(s ) pH 7.357 7.380 - Below low normal pH [facility] {pH_units} 7.460 pH Health System units REPORTED TO /JOANNE Carbon dioxide 43.7 {mm_Hg} 32.0 - Normal (applies pCO2, Arterial [facility] [Partial 46.0 mm to non-numeric Health System pressure] in Hg results) Arterial blood Oxygen [Partial 45.8 {mm_Hg} 74.0 - Below low normal pO2, Aterial [facility] pressure] in 108.0 mm Health System Arterial blood Hg Bicarbonate 24.0 mmol/L 20.0 - Normal (applies HCO3 [facility] [Moles/volume] 26.0 to non-numeric Health Sys tem in Venous blood mmol/L results) TCO2 25.3 mmol/L 24.0 - Normal (applies TCO2 [facility] 30.0 to non-numeric Health System mmol/L results) O2 Saturation 80.5 % 92.0 - Below low normal O2 Saturation Ubaldo grace 96.0 % Health System Patient Cancelled Patient [facility] Temperature Temperature [facility] System Ionized Calcium 1.12 mmol/L Normal (applies Ionized Calcium [facility] to non-numeric Health System results) Base Excess. -1.6 mmol/L -3.0 - Normal (applies Base Excess. [facility] 3.0 to non-numeric Health System mmol/L results) ID Date Data Source [id number] 02/02/2015 08:09:00 PM EST [facility] Name Value Range Interpretation Description Data Sup porting Code Source(s) Document(s ) Lipase 32 U/L 8 - 78 Normal (applies to Lipase, Serum [facility] [Enzymatic U/L non-numeric Health System activity/v results) olume] in Serum or Plasma ID Date Data Source [id number] 02/02/2015 07:51:00 PM EST [facility] Name Value Range Interpretation Description Data Sup porting Code Source(s) Document(s ) Bacteria NO GROWTH Culture [facility] identified in Bacteria Blood Health Syst em Blood by [facility] culture ID Date Data Source [id number] 02/02/2015 07:51:00 PM EST [facility] Name Value Range Interpretation Description Data Sup porting Code Source(s) Document(s ) Bacteria NO GROWTH Culture [facility] identified in Bacteria Blood Health Syst em Blood by [facility] culture ID Date Data Source [id number] 02/02/2015 06:04:00 PM EST [facility] Name Value Range Interpretation Description Data Sup porting Code Source(s) Document(s ) Type B Normal (applies Type [facility] to non-numeric [facility] System results) D Ab [Titer] Positive Normal (applies Rh [facility] in Serum or to non-numeric Health System Plasma results) Antibody Negative Normal (applies Antibody [facility] Screen to non-numeric Screen Health System results) ID Date Data Source [id number] 02/02/2015 06:04:00 PM EST [facility] Name Value Range Interpretation Description Data Sup porting Code Source(s) Document(s ) aPTT in Blood 25.0 23.9 - Normal (applies Activated [facility] by {Second 30.6 to non-numeric Partial Health Coagulation s} Seconds results) Thromboplastin System assay Time ID Date Data Source [id number] 02/02/2015 06:04:00 PM EST [facility] Name Value Range Interpretation Description Data Sup porting Code Source(s) Document(s ) Prothrombin 9.80 9.70 - Normal (applies Prothrombin [facility] time (PT) {seconds 11.80 to non-numeric time (PT) Health } seconds results) System INR in Blood 0.94 0.70 - Normal (applies INR Result [facility] by Coagulation {Ratio} 1.10 to non-numeric Health assay Ratio results) System Normal = 0.7-1.1Therapeutic = 2.0-3.0Mec hanical Heart = 3.0-4.5 ID Date Data Source [id number] 02/02/2015 06:04:00 PM EST [facility] Name Value Range Interpretation Description Data Sup porting Code Source(s) Document(s ) Leukocytes 5.9 4.8 - Normal (applies WBC Count [facility] [#/volume] in {10^3_uL 10.8 to non-numeric Health Unspecified } 10^3 uL results) System specimen by Automated count Erythrocytes 3.53 3.80 - Below low normal RBC Count [facility] [#/volume] in {10^6_uL 5.20 Health Blood by } 10^6 uL System Automated count Hemoglobin 11.2 12.0 - Below low normal Hemoglobin [facility] [Mass/volume] in {gm/dL} 16.0 Health Blood gm/dL System Hematocrit 32.7 % 36.0 - Below low normal Hematocrit [facility] [Volume 46.0 % Health Fraction] of System Blood Erythrocyte mean 92.6 fl 80.0 - Normal (applies MCV [facility] corpuscular 100.0 to non-numeric Health volume [Entitic fl results) System volume] by Automated count Erythrocyte mean 31.7 pg 26.0 - Normal (applies MCH [facility] corpuscular 34.0 pg to non-numeric Health hemoglobin results) System [Entitic mass] by Automated count Erythrocyte mean 34.3 33.0 - Normal (applies MCHC [facility] corpuscular {gm/dL} 37.0 to non-numeric Health hemoglobin gm/dL results) System concentration [Mass/volume] by Automated count Erythrocyte 12.6 % 11.5 - Normal (applies RDW-CV [facility] distribution 14.5 % to non-numeric Health width [Entitic results) System volume] by Automated count Platelets 161 130 - Normal (applies Platelet [facility] [#/volume] in {10^3_uL 400 to non-numeric Count Health Plasma by } 10^3 uL results) System Automated count Platelet mean 12.7 fl 7.4 - Above high MPV [facility] volume [Entitic 10.4 fl normal Health volume] in Blood System by Automated count Monocytes 0.2 0.3 - Below low normal Monocyte # [facility] [#/volume] in {10^3_uL 0.9 Health Blood by Manual } 10^3 uL System count Eosinophils 0.02 0.05 - Below low normal Eosinophil # [facility] [#/volume] in {10^3_uL 0.30 Health Blood } 10^3 uL System Neutrophils 3.0 2.0 - Normal (applies Neutrophil # [facility] [#/volume] in {10^3_uL 8.1 to non-numeric Health Body fluid } 10^3 uL results) System Basophils 0.01 0.00 - Normal (applies Basophil # [facility] [#/volume] in {10^3_uL 0.10 to non-numeric Health Blood by } 10^3 uL results) System Automated count Lymphocyte # 2.6 1.0 - Normal (applies Lymphocyte # [facility] {10^3_uL 5.5 to non-numeric Health } 10^3 uL results) System Neutrophils/100 51.3 % 0.0 - Normal (applies Neutrophil % Ubaldo grace leukocytes in 120.0 % to non-numeric Health Blood by results) System Automated count Monocytes/100 3.9 % 6.0 - Below low normal Monocyte % [facility] leukocytes in 9.0 % Health Blood System Eosinophils/100 0.3 % 1.0 - Below low normal Eosinophil % [facility] leukocytes in 3.0 % Health Unspecified System specimen Basophils/100 0.2 % 0.0 - Normal (applies Basophil % [facility] leukocytes in 1.0 % to non-numeric Health Unspecified results) System specimen by Manual count Lymphocytes 44.3 % 21.0 - Normal (applies Lymphocyte % [facility] [#/volume] in 51.0 % to non-numeric Health Blood by results) System Automated count ID Date Data Source [id number] 02/02/2015 06:04:00 PM EST [facility] Name Value Range Interpretation Description Data Sup porting Code Source(s) Document(s ) Sodium 127 137 - Below lower panic Sodium, Serum [facility] [Moles/vol mmol/L 145 limits Health System ume] in mmol/L Serum or Plasma Result Reporting|Telephone|HASMUKH ROMERO/JOANNE| at 7:38 PMCalled to:HASMUKH ROMERO/Rock Name:NAOMI Godinez by:HASMUKH ROMERO/JOANNE02/02 / 7:37 PM Potassium 4.4 mmol/L 3.6 - 5.0 Normal (applies Potassium, [facility] [Mass/volume] in mmol/L to non-numeric Serum Health S ystem Serum or Plasma results) Chloride 88 mmol/L 98 - 107 Below low Chloride, [facility] [Moles/volume] in mmol/L normal Serum Health Syste m Serum or Plasma Carbon dioxide, 24.0 mmol/L 22.0 - 30.0 Normal (applies CO2, Serum [facility] total mmol/L to non-numeric Health System [Moles/volume] in results) Serum or Plasma Total Protein 9.0 mg/dl 6.3 - 8.2 Above high Total Protein [facility] mg/dl normal Health System Glucose 840 mg/dL 65 - 105 Above upper Glucose, Serum [facility] [Mass/volume] in mg/dL panic limits Health Sys tem Serum or Plasma Result Reporting|Telephone|/ER| 02/02/2015 at 8:02 PMCalled to:/ERTech Name:NAOMI Luis ck by:/ER02/02/2015 / 8:01 PM Urea nitrogen 19 mg/dl 7 - 18 Above high Blood Urea [facility] [Mass/volume] in Serum mg/dl normal Nitrogen, Serum H ealth System or Plasma Creatinine 2.10 mg/dl 0.70 - Above high Creatinine, [facility] [Mass/volume] in Serum 1.20 mg/dl normal Serum Health System or Plasma Alkaline phosphatase 170 {IU/L} 38 - 126 Above high Alkaline [facility] isoenzymes [Enzymatic IU/L normal Phosphatase, Healt h System activity/volume] in Serum Serum or Plasma by Heat stability Bilirubin.total 0.2 mg/dl 0.2 - 1.3 Normal Bilirubin, [facility] [Mass/volume] in Serum mg/dl (applies to Serum Total Hea lth System or Plasma non-numeric results) Direct Bilirubin 0.1 mg/dl 0.0 - 0.4 Normal Direct [facility] mg/dl (applies to Bilirubin Health System non-numeric results) Aspartate 65 {IU/L} 5 - 40 Above high Aspartate [facility] aminotransferase IU/L normal Transaminase, Health Sy stem [Enzymatic Serum activity/volume] in Serum or Plasma by With P-5'-P Albumin [Mass/volume] 4.1 3.9 - 5.0 Normal Albumin, Serum [facility] in Serum or Plasma {gm/dl} gm/dl (applies to Health Sy stem non-numeric results) I. Phosphorus 3.0 mg/dl 2.5 - 4.5 Normal I. Phosphorus [facility] mg/dl (applies to Health System non-numeric results) Alanine 79 {IU/L} 7 - 56 Above high Alanine [facility] aminotransferase IU/L normal Aminotransferas Health System [Enzymatic e, Serum activity/volume] in Serum or Plasma Calcium [Mass/volume] 9.0 mg/dl 8.4 - 10.2 Normal Calcium, Total [facility] in Serum or Plasma mg/dl (applies to Serum Health Sy stem non-numeric results) A/G Ratio 0.84 Normal A/G Ratio [facility] (applies to Health System non-numeric results) Urate [Mass/volume] in 4.8 mg/dl 2.5 - 7.5 Normal Uric Acid, [facility] Serum or Plasma mg/dl (applies to Serum Health Syste m non-numeric results) Anion gap in Serum or 15.00 8.00 - Above high Anion Gap [facility] ore Plasma mmol/L 12.00 normal Health System mmol/L Glomerular filtration 23.99 Normal GFR [facility] rate/1.73 sq (applies to Health System M.predicted [Volume non-numeric Rate/Area] in Serum or results) Plasma by Creatinine-based formula (CKD-EPI) eGFR will provide clinicians with a more accurate indicator of renal function then the serum creatinine. The eGFR is automa tically calculated from an empiric formula (endorsed by the National Kid[employer] ion) which incorporates age, sex, and race.Clinicians may notice surprisingly low GFR's with serum creatinine valueswithin normal range- particularly in elderly wo men (with low muscle mass).In the hospital setting, the eGFR should add an element of safety in drug dosing, in assessing the risk of IV contrast administration, and in assessing vascular risk.The NKF staging system is as follows:Normal: eGFR >90 with no kidney markersStage 1: eGFR >90 with kidney markers*Stage 2: eGFR 60- 89Stage 3: eGFR 30-59Stage 4: eGFR 15-29Stage 5: eGFR <15 (usually requir ing dialysis)*Markers include: Proteinuria, Hematuria, abnormal imaging-studies, or other blood or urine test abnormalities ID Date Data Source [id number] 02/02/2015 06:04:00 PM JAYDEN ibarra System Name Value Range Interpretation Description Data Sup porting Code Source(s) Document(s ) Troponin I 0.02 0.00 - Normal (applies Troponin I [facility] Quantitative ng/ml 0.04 to non-numeric Quantitative Health ng/ml results) System ID Date Data Source [id number] 02/02/2015 06:04:00 PM EST [facility] System Name Value Range Interpretation Description Data Sup porting Code Source(s) Document(s ) Lactic 3.09 0.70 - Above high normal Lactic Acid, [facility] Acid, {mEq/L} 2.10 Plasma *[facility] Plasma mEq/L KI ONLY* *[facility] KI ONLY* ID Date Data Source [id number] 02/02/2015 06:04:00 PM EST [facility] System Name Value Range Interpretation Description Data Sup porting Code Source(s) Document(s ) Creatine 39 30 - 135 Normal (applies Creatine [facility] kinase.MB {IU/L} IU/L to non-numeric Kinase, Serum Health Syst em [Mass/volum results) e] in Serum or Plasma ID Date Data Source [id number] 02/02/2015 06:04:00 PM EST [facility] System Name Value Range Interpretation Description Data Sup porting Code Source(s) Document(s ) Acetone, Negative Negative Normal (applies Acetone, [facility] Serum to non-numeric Serum Health Qualitative results) Qualitative System ID Date Data Source [id number] 10/29/2014 01:08:00 AM EDT [facility] Name Value Range Interpretation Description Data Sup porting Code Source(s) Document(s ) Color YELLOW Yellow Normal (applies Color [facility] to non-numeric Health results) System Appearance of SL CLOUDY Clear Normal (applies Urine [facility] Urine to non-numeric Appearance Health results) System Specific < =1.005 Normal (applies Urine Specific [facility] gravity of to non-numeric [facility] Urine results) System pH.. 5.5 4.6 - 8.0 Normal (applies pH.. [facility] {pH_units} pH units to non-numeric Health results) System Glucose, UA NEGATIVE < 50 Normal (applies Glucose, UA [facility] mg/dl to non-numeric Health results) System Protein NEGATIVE < 30 Normal (applies Protein [facility] [Mass/volume] mg/dl to non-numeric Health in Serum or results) System Plasma Bilirubin NEGATIVE Negative Normal (applies Bilirubin [facility] Urine Sm to Lg to non-numeric Urine Health results) System Urobilinogen 0.2 mg/dL Normal (applies Urobilinogen [facility] [Mass/volume] to non-numeric UA Health in Urine results) System Ketones NEGATIVE Negative Normal (applies Ketones UA [facility] [Mass/volume] Tr to Lg to non-numeric Health in Urine results) System Nitrate+Nitrit POSITIVE Negative Abnormal Nitrite [facility] e Neg/Pos (applies to Health [Mass/volume] non-numeric System in Unspecified results) specimen Leukocyte SMALL Negative Abnormal Leukocyte [facility] esterase Tr to Lg (applies to Esterase Health [Units/volume] non-numeric Concentration System in Urine results) Leukocytes 7-15 0 - 2 Normal (applies White Blood [facility] [#/volume] in /HPF to non-numeric Cells Health Unspecified results) System specimen by Automated count Red Blood 1-3 0 - 1 Normal (applies Red Blood [facility] Cells /HPF to non-numeric Cells Health results) System Epithelial 0-1 0 - 3 Normal (applies Epithelial [facility] cells /HPF to non-numeric Cells Health [Presence] in results) System Unspecified specimen by Wet preparation Bacteria many 0 - 5 Normal (applies Bacteria [facility] [Presence] in /HPF to non-numeric Health Unspecified results) System specimen Urine Blood NEGATIVE Normal (applies Urine Blood [facility] to non-numeric Health results) System ID Date Data Source [id number] 10/29/2014 01:08:00 AM EDT [facility] System Name Value Range Interpretation Description Data Sup porting Code Source(s) Document(s ) Leukocytes 5.2 4.8 - Normal (applies WBC Count [facility] [#/volume] in {10^3_uL 10.8 to non-numeric Health Unspecified } 10^3 uL results) System specimen by Automated count Erythrocytes 3.87 3.80 - Normal (applies RBC Count [facility] [#/volume] in {10^6_uL 5.20 to non-numeric Health Blood by } 10^6 uL results) System Automated count Hemoglobin 12.1 12.0 - Normal (applies Hemoglobin [facility] [Mass/volume] in {gm/dL} 16.0 to non-numeric Health Blood gm/dL results) System Hematocrit 34.3 % 36.0 - Below low normal Hematocrit [facility] [Volume 46.0 % Health Fraction] of System Blood Erythrocyte mean 88.6 fl 80.0 - Normal (applies MCV [facility] corpuscular 100.0 to non-numeric Health volume [Entitic fl results) System volume] by Automated count Erythrocyte mean 31.3 pg 26.0 - Normal (applies MCH [facility] corpuscular 34.0 pg to non-numeric Health hemoglobin results) System [Entitic mass] by Automated count Erythrocyte mean 35.3 33.0 - Normal (applies MCHC [facility] corpuscular {gm/dL} 37.0 to non-numeric Health hemoglobin gm/dL results) System concentration [Mass/volume] by Automated count Erythrocyte 15.1 % 11.5 - Above high RDW-CV [facility] distribution 14.5 % normal Health width [Entitic System volume] by Automated count Platelets 199 130 - Normal (applies Platelet [facility] [#/volume] in {10^3_uL 400 to non-numeric Count Health Plasma by } 10^3 uL results) System Automated count Platelet mean 10.4 fl 7.4 - Normal (applies MPV [facility] volume [Entitic 10.4 fl to non-numeric Health volume] in Blood results) System by Automated count Monocytes 0.2 0.3 - Below low normal Monocyte # [facility] [#/volume] in {10^3_uL 0.9 Health Blood by Manual } 10^3 uL System count Eosinophils 0.04 0.05 - Below low normal Eosinophil # [facility] [#/volume] in {10^3_uL 0.30 Health Blood } 10^3 uL System Neutrophils 2.7 2.0 - Normal (applies Neutrophil # [facility] [#/volume] in {10^3_uL 8.1 to non-numeric Health Body fluid } 10^3 uL results) System Basophils 0.02 0.00 - Normal (applies Basophil # [facility] [#/volume] in {10^3_uL 0.10 to non-numeric Health Blood by } 10^3 uL results) System Automated count Lymphocyte # 2.2 1.0 - Normal (applies Lymphocyte # [facility] {10^3_uL 5.5 to non-numeric Health } 10^3 uL results) System Neutrophils/100 51.7 % 0.0 - Normal (applies Neutrophil % Ubaldo grace leukocytes in 120.0 % to non-numeric Health Blood by results) System Automated count Monocytes/100 3.9 % 6.0 - Below low normal Monocyte % [facility] leukocytes in 9.0 % Health Blood System Eosinophils/100 0.8 % 1.0 - Below low normal Eosinophil % [facility] leukocytes in 3.0 % Health Unspecified System specimen Basophils/100 0.4 % 0.0 - Normal (applies Basophil % [facility] leukocytes in 1.0 % to non-numeric Health Unspecified results) System specimen by Manual count Lymphocytes 43.2 % 21.0 - Normal (applies Lymphocyte % [facility] [#/volume] in 51.0 % to non-numeric Health Blood by results) System Automated count ID Date Data Source [id number] 10/29/2014 01:08:00 AM EDT [facility] System Name Value Range Interpretation Description Data Sup porting Code Source(s) Document(s ) Sodium 135 137 - Below low normal Sodium, Serum [facility] [Moles/volume] in mmol/L 145 Health Serum or Plasma mmol/L System Potassium 3.5 3.6 - Below low normal Potassium, [facility] [Mass/volume] in mmol/L 5.0 Serum Health Serum or Plasma mmol/L System Chloride 109 98 - Above high Chloride, [facility] [Moles/volume] in mmol/L 107 normal Serum Health Serum or Plasma mmol/L System Carbon dioxide, 13.0 22.0 - Below low normal CO2, Serum [facility] total mmol/L 30.0 Health [Moles/volume] in mmol/L System Serum or Plasma Total Protein 7.9 6.3 - Normal (applies Total Protein [facility] mg/dl 8.2 to non-numeric Health mg/dl results) System Glucose 141 65 - Above high Glucose, [facility] [Mass/volume] in mg/dL 105 normal Serum Health Serum or Plasma mg/dL System Urea nitrogen 31 7 - 18 Above high Blood Urea [facility] [Mass/volume] in mg/dl mg/dl normal Nitrogen, Health Serum or Plasma Serum System Creatinine 1.18 0.70 - Normal (applies Creatinine, [facility] [Mass/volume] in mg/dl 1.20 to non-numeric Serum Health Serum or Plasma mg/dl results) System Alkaline 80 38 - Normal (applies Alkaline [facility] phosphatase {IU/L} 126 to non-numeric Phosphatase, Health isoenzymes IU/L results) Serum System [Enzymatic activity/volume] in Serum or Plasma by Heat stability Bilirubin.total 0.3 0.2 - Normal (applies Bilirubin, [facility] [Mass/volume] in mg/dl 1.3 to non-numeric Serum Total Health Serum or Plasma mg/dl results) System Direct Bilirubin 0.2 0.0 - Normal (applies Direct [facility] mg/dl 0.4 to non-numeric Bilirubin Health mg/dl results) System Aspartate 76 5 - 40 Above high Aspartate [facility] aminotransferase {IU/L} IU/L normal Transaminase, Health [Enzymatic Serum System activity/volume] in Serum or Plasma by With P-5'-P Albumin 3.5 3.9 - Below low normal Albumin, [facility] [Mass/volume] in {gm/dl} 5.0 Serum Health Serum or Plasma gm/dl System I. Phosphorus 2.8 2.5 - Normal (applies I. Phosphorus [facility] mg/dl 4.5 to non-numeric Health mg/dl results) System Alanine 73 7 - 56 Above high Alanine [facility] aminotransferase {IU/L} IU/L normal Aminotransfer Health [Enzymatic ase, Serum System activity/volume] in Serum or Plasma Calcium 8.5 8.4 - Normal (applies Calcium, [facility] [Mass/volume] in mg/dl 10.2 to non-numeric Total Serum Health Serum or Plasma mg/dl results) System A/G Ratio 0.80 Normal (applies A/G Ratio [facility] to non-numeric Health results) System Urate 7.9 2.5 - Above high Uric Acid, [facility] [Mass/volume] in mg/dl 7.5 normal Serum Health Serum or Plasma mg/dl System Anion gap in Serum 13.00 8.00 - Above high Anion Gap [facility] or Plasma mmol/L 12.00 normal Health mmol/L System Glomerular 46.71 Normal (applies GFR [facility] filtration to non-numeric Health rate/1.73 sq results) System M.predicted [Volume Rate/Area] in Serum or Plasma by Creatinine-based formula (CKD-EPI) eGFR will provide clinicians with a more accurate indicator of renal function then the serum creatinine. The eGFR is automa tically calculated from an empiric formula (endorsed by the National Kid[employer] ion) which incorporates age, sex, and race.Clinicians may notice surprisingly low GFR's with serum creatinine valueswithin normal range- particularly in elderly wo men (with low muscle mass).In the hospital setting, the eGFR should add an element of safety in drug dosing, in assessing the risk of IV contrast administration, and in assessing vascular risk.The NKF staging system is as follows:Normal: eGFR >90 with no kidney markersStage 1: eGFR >90 with kidney markers*Stage 2: eGFR 60- 89Stage 3: eGFR 30-59Stage 4: eGFR 15-29Stage 5: eGFR <15 (usually requir ing dialysis)*Markers include: Proteinuria, Hematuria, abnormal imaging-studies, or other blood or urine test abnormalities ID Date Data Source [id number] 10/29/2014 01:08:00 AM EDT [facility] System Name Value Range Interpretation Description Data Sup porting Code Source(s) Document(s ) Alcohol 151.8 Normal (applies to Alcohol Ethyl, [facility] Ethyl, mg/dl non-numeric Blood Health System Blood results) None Detected ID Date Data Source [id number] 09/29/2014 11:48:00 AM EDT [facility] System Name Value Range Interpretation Description Data Sup porting Code Source(s) Document(s ) Blood, NEGATIVE Normal (applies to Blood, Occult [facility] Occult non-numeric Feces Health System Feces results) ID Date Data Source [id number] 09/29/2014 06:00:00 AM EDT [facility] System Name Value Range Interpretation Description Data Sup porting Code Source(s) Document(s ) Sodium 136 137 - Below low normal Sodium, Serum [facility] [Moles/volume] in mmol/L 145 Health Serum or Plasma mmol/L System Potassium 3.8 3.6 - Normal (applies Potassium, [facility] [Mass/volume] in mmol/L 5.0 to non-numeric Serum Health Serum or Plasma mmol/L results) System Chloride 106 98 - Normal (applies Chloride, [facility] [Moles/volume] in mmol/L 107 to non-numeric Serum Health Serum or Plasma mmol/L results) System Carbon dioxide, 22.0 22.0 - Normal (applies CO2, Serum [facility] [place] total mmol/L 30.0 to non-numeric Health [Moles/volume] in mmol/L results) System Serum or Plasma Total Protein 6.3 6.3 - Normal (applies Total Protein [facility] [place] mg/dl 8.2 to non-numeric Health mg/dl results) System Glucose 97 65 - Normal (applies Glucose, [facility] [Mass/volume] in mg/dL 105 to non-numeric Serum Health Serum or Plasma mg/dL results) System Urea nitrogen 10 7 - 18 Normal (applies Blood Urea [facility] [facility] [Mass/volume] in mg/dl mg/dl to non-numeric Nitrogen, Health Serum or Plasma results) Serum System Creatinine 1.10 0.70 - Normal (applies Creatinine, [facility] [Mass/volume] in mg/dl 1.20 to non-numeric Serum Health Serum or Plasma mg/dl results) System Alkaline 96 38 - Normal (applies Alkaline [facility] phosphatase {IU/L} 126 to non-numeric Phosphatase, Health isoenzymes IU/L results) Serum System [Enzymatic activity/volume] in Serum or Plasma by Heat stability Bilirubin.total 0.5 0.2 - Normal (applies Bilirubin, [facility] [Mass/volume] in mg/dl 1.3 to non-numeric Serum Total Health Serum or Plasma mg/dl results) System Direct Bilirubin 0.3 0.0 - Normal (applies Direct [facility] mg/dl 0.4 to non-numeric Bilirubin Health mg/dl results) System Aspartate 54 5 - 40 Above high Aspartate [facility] aminotransferase {IU/L} IU/L normal Transaminase, Health [Enzymatic Serum System activity/volume] in Serum or Plasma by With P-5'-P Albumin 2.5 3.9 - Below low normal Albumin, [facility] [Mass/volume] in {gm/dl} 5.0 Serum Health Serum or Plasma gm/dl System I. Phosphorus 3.8 2.5 - Normal (applies I. Phosphorus [facility] mg/dl 4.5 to non-numeric Health mg/dl results) System Alanine 38 7 - 56 Normal (applies Alanine [facility] aminotransferase {IU/L} IU/L to non-numeric Aminotransfer Heal th [Enzymatic results) ase, Serum System activity/volume] in Serum or Plasma Calcium 7.9 8.4 - Below low normal Calcium, [facility] [Mass/volume] in mg/dl 10.2 Total Serum Health Serum or Plasma mg/dl System A/G Ratio 0.66 Normal (applies A/G Ratio [facility] to non-numeric Health results) System Urate 4.4 2.5 - Normal (applies Uric Acid, [facility] [Mass/volume] in mg/dl 7.5 to non-numeric Serum Health Serum or Plasma mg/dl results) System Anion gap in Serum 8.00 8.00 - Normal (applies Anion Gap U[facility] or Plasma mmol/L 12.00 to non-numeric Health mmol/L results) System Glomerular 50.66 Normal (applies GFR [facility] filtration to non-numeric Health rate/1.73 sq results) System M.predicted [Volume Rate/Area] in Serum or Plasma by Creatinine-based formula (CKD-EPI) eGFR will provide clinicians with a more accurate indicator of renal function then the serum creatinine. The eGFR is automa tically calculated from an empiric formula (endorsed by the National Kid[employer] ion) which incorporates age, sex, and race.Clinicians may notice surprisingly low GFR's with serum creatinine valueswithin normal range- particularly in elderly wo men (with low muscle mass).In the hospital setting, the eGFR should add an element of safety in drug dosing, in assessing the risk of IV contrast administration, and in assessing vascular risk.The NKF staging system is as follows:Normal: eGFR >90 with no kidney markersStage 1: eGFR >90 with kidney markers*Stage 2: eGFR 60- 89Stage 3: eGFR 30-59Stage 4: eGFR 15-29Stage 5: eGFR <15 (usually requir ing dialysis)*Markers include: Proteinuria, Hematuria, abnormal imaging-studies, or other blood or urine test abnormalities ID Date Data Source [id number] 09/29/2014 06:00:00 AM EDT [facility] System Name Value Range Interpretation Description Data Sup porting Code Source(s) Document(s ) aPTT in Blood 28.1 23.9 - Normal (applies Activated [facility] by {Second 30.6 to non-numeric Partial Health Coagulation s} Seconds results) Thromboplastin System assay Time ID Date Data Source [id number] 09/29/2014 06:00:00 AM EDT [facility] System Name Value Range Interpretation Description Data Sup porting Code Source(s) Document(s ) Prothrombin 10.80 9.70 - Normal (applies Prothrombin [facility] time (PT) {seconds 11.80 to non-numeric time (PT) Health } seconds results) System INR in Blood 1.04 0.70 - Normal (applies INR Result [facility] by Coagulation {Ratio} 1.10 to non-numeric Health assay Ratio results) System Normal = 0.7-1.1Therapeutic = 2.0-3.0Mec hanical Heart = 3.0-4.5 ID Date Data Source [id number] 09/29/2014 06:00:00 AM EDT [facility] System Name Value Range Interpretation Description Data Sup porting Code Source(s) Document(s ) Leukocytes 4.9 4.8 - Normal (applies WBC Count [facility] [#/volume] in {10^3_uL 10.8 to non-numeric Health Unspecified } 10^3 uL results) System specimen by Automated count Erythrocytes 3.40 3.80 - Below low normal RBC Count [facility] [#/volume] in {10^6_uL 5.20 Health Blood by } 10^6 uL System Automated count Hemoglobin 10.7 12.0 - Below low normal Hemoglobin [facility] [Mass/volume] in {gm/dL} 16.0 Health Blood gm/dL System Hematocrit 30.6 % 36.0 - Below low normal Hematocrit [facility] [Volume 46.0 % Health Fraction] of System Blood Erythrocyte mean 90.0 fl 80.0 - Normal (applies MCV [facility] [facility] corpuscular 100.0 to non-numeric Health volume [Entitic fl results) System volume] by Automated count Erythrocyte mean 31.5 pg 26.0 - Normal (applies MCH [facility] corpuscular 34.0 pg to non-numeric Health hemoglobin results) System [Entitic mass] by Automated count Erythrocyte mean 35.0 33.0 - Normal (applies MCHC [facility] [facility] corpuscular {gm/dL} 37.0 to non-numeric Health hemoglobin gm/dL results) System concentration [Mass/volume] by Automated count Erythrocyte 17.7 % 11.5 - Above high RDW-CV [facility] distribution 14.5 % normal Health width [Entitic System volume] by Automated count Platelets 112 130 - Below low normal Platelet [facility] [#/volume] in {10^3_uL 400 Count Health Plasma by } 10^3 uL System Automated count Platelet mean 11.5 fl 7.4 - Above high MPV [facility] volume [Entitic 10.4 fl normal Health volume] in Blood System by Automated count Monocytes 0.4 0.3 - Normal (applies Monocyte # [facility] [#/volume] in {10^3_uL 0.9 to non-numeric Health Blood by Manual } 10^3 uL results) System count Eosinophils 0.04 0.05 - Below low normal Eosinophil # [facility] [#/volume] in {10^3_uL 0.30 Health Blood } 10^3 uL System Neutrophils 2.6 2.0 - Normal (applies Neutrophil # [place] [facility] [#/volume] in {10^3_uL 8.1 to non-numeric Health Body fluid } 10^3 uL results) System Basophils 0.02 0.00 - Normal (applies Basophil # [facility] [#/volume] in {10^3_uL 0.10 to non-numeric Health Blood by } 10^3 uL results) System Automated count Lymphocyte # 1.9 1.0 - Normal (applies Lymphocyte # [facility] {10^3_uL 5.5 to non-numeric Health } 10^3 uL results) System Neutrophils/100 52.9 % 0.0 - Normal (applies Neutrophil % Ubal[facility] grace leukocytes in 120.0 % to non-numeric Health Blood by results) System Automated count Monocytes/100 7.8 % 6.0 - Normal (applies Monocyte % [facility] [facility] leukocytes in 9.0 % to non-numeric Health Blood results) System Eosinophils/100 0.8 % 1.0 - Below low normal Eosinophil % [facility] leukocytes in 3.0 % Health Unspecified System specimen Basophils/100 0.4 % 0.0 - Normal (applies Basophil % [facility] leukocytes in 1.0 % to non-numeric Health Unspecified results) System specimen by Manual count Lymphocytes 38.1 % 21.0 - Normal (applies Lymphocyte % [place] [facility] [#/volume] in 51.0 % to non-numeric Health Blood by results) System Automated count ID Date Data Source [id number] 09/28/2014 06:00:00 AM EDSebastian [facility] System Name Value Range Interpretation Description Data Sup porting Code Source(s) Document(s ) Leukocytes 4.4 4.8 - Below low normal WBC Count [facility] [#/volume] in {10^3_uL 10.8 Health Unspecified } 10^3 uL System specimen by Automated count Erythrocytes 2.37 3.80 - Below low normal RBC Count [facility] [#/volume] in {10^6_uL 5.20 Health Blood by } 10^6 uL System Automated count Hemoglobin 7.5 12.0 - Below low normal Hemoglobin [facility] [Mass/volume] in {gm/dL} 16.0 Health Blood gm/dL System Hematocrit 22.5 % 36.0 - Below low normal Hematocrit [facility] [Volume 46.0 % Health Fraction] of System Blood Erythrocyte mean 94.9 fl 80.0 - Normal (applies MCV [facility] [facility] corpuscular 100.0 to non-numeric Health volume [Entitic fl results) System volume] by Automated count Erythrocyte mean 31.6 pg 26.0 - Normal (applies MCH [place] corpuscular 34.0 pg to non-numeric Health hemoglobin results) System [Entitic mass] by Automated count Erythrocyte mean 33.3 33.0 - Normal (applies MCHC [place] corpuscular {gm/dL} 37.0 to non-numeric Health hemoglobin gm/dL results) System concentration [Mass/volume] by Automated count Erythrocyte 15.7 % 11.5 - Above high RDW-CV [facility] distribution 14.5 % normal Health width [Entitic System volume] by Automated count Platelets 120 130 - Below low normal Platelet [facility] [#/volume] in {10^3_uL 400 Count Health Plasma by } 10^3 uL System Automated count Platelet mean 11.2 fl 7.4 - Above high MPV [facility] volume [Entitic 10.4 fl normal Health volume] in Blood System by Automated count Monocytes 0.3 0.3 - Below low normal Monocyte # [facility] [#/volume] in {10^3_uL 0.9 Health Blood by Manual } 10^3 uL System count Eosinophils 0.04 0.05 - Below low normal Eosinophil # [facility] [facility] [#/volume] in {10^3_uL 0.30 Health Blood } 10^3 uL System Neutrophils 2.4 2.0 - Normal (applies Neutrophil # [place] [facility] [#/volume] in {10^3_uL 8.1 to non-numeric Health Body fluid } 10^3 uL results) System Basophils 0.01 0.00 - Normal (applies Basophil # [facility] [#/volume] in {10^3_uL 0.10 to non-numeric Health Blood by } 10^3 uL results) System Automated count Lymphocyte # 1.8 1.0 - Normal (applies Lymphocyte # [facility] {10^3_uL 5.5 to non-numeric Health } 10^3 uL results) System Neutrophils/100 53.2 % 0.0 - Normal (applies Neutrophil % Ubaldo grace leukocytes in 120.0 % to non-numeric Health Blood by results) System Automated count Monocytes/100 5.7 % 6.0 - Below low normal Monocyte % [facility] leukocytes in 9.0 % Health Blood System Eosinophils/100 0.9 % 1.0 - Below low normal Eosinophil % [facility] leukocytes in 3.0 % Health Unspecified System specimen Basophils/100 0.2 % 0.0 - Normal (applies Basophil % [facility] leukocytes in 1.0 % to non-numeric Health Unspecified results) System specimen by Manual count Lymphocytes 40.0 % 21.0 - Normal (applies Lymphocyte % [facility] [#/volume] in 51.0 % to non-numeric Health Blood by results) System Automated count ID Date Data Source [id number] 09/28/2014 06:00:00 AM EDT [facility] System Name Value Range Interpretation Description Data Sup porting Code Source(s) Document(s ) Sodium 138 137 - Normal (applies Sodium, Serum [facility] [Moles/volume] in mmol/L 145 to non-numeric Health Serum or Plasma mmol/L results) System Potassium 4.7 3.6 - Normal (applies Potassium, [facility] [Mass/volume] in mmol/L 5.0 to non-numeric Serum Health Serum or Plasma mmol/L results) System Chloride 111 98 - Above high Chloride, [facility] [Moles/volume] in mmol/L 107 normal Serum Health Serum or Plasma mmol/L System Carbon dioxide, 20.0 22.0 - Below low normal CO2, Serum [facility] total mmol/L 30.0 Health [Moles/volume] in mmol/L System Serum or Plasma Total Protein 6.1 6.3 - Below low normal Total Protein Ubaldo grace mg/dl 8.2 Health mg/dl System Glucose 90 65 - Normal (applies Glucose, [facility] [Mass/volume] in mg/dL 105 to non-numeric Serum Health Serum or Plasma mg/dL results) System Urea nitrogen 9 mg/dl 7 - 18 Normal (applies Blood Urea [facility] [Mass/volume] in mg/dl to non-numeric Nitrogen, Health Serum or Plasma results) Serum System Creatinine 1.00 0.70 - Normal (applies Creatinine, [facility] [Mass/volume] in mg/dl 1.20 to non-numeric Serum Health Serum or Plasma mg/dl results) System Alkaline 90 38 - Normal (applies Alkaline [facility] phosphatase {IU/L} 126 to non-numeric Phosphatase, Health isoenzymes IU/L results) Serum System [Enzymatic activity/volume] in Serum or Plasma by Heat stability Bilirubin.total 0.5 0.2 - Normal (applies Bilirubin, [facility] [Mass/volume] in mg/dl 1.3 to non-numeric Serum Total Health Serum or Plasma mg/dl results) System Direct Bilirubin 0.2 0.0 - Normal (applies Direct [facility] mg/dl 0.4 to non-numeric Bilirubin Health mg/dl results) System Aspartate 67 5 - 40 Above high Aspartate [facility] aminotransferase {IU/L} IU/L normal Transaminase, Health [Enzymatic Serum System activity/volume] in Serum or Plasma by With P-5'-P Albumin 2.3 3.9 - Below low normal Albumin, [facility] [Mass/volume] in {gm/dl} 5.0 Serum Health Serum or Plasma gm/dl System I. Phosphorus 2.9 2.5 - Normal (applies I. Phosphorus [facility] mg/dl 4.5 to non-numeric Health mg/dl results) System Alanine 44 7 - 56 Normal (applies Alanine [facility] aminotransferase {IU/L} IU/L to non-numeric Aminotransfer Heal th [Enzymatic results) ase, Serum System activity/volume] in Serum or Plasma Calcium 7.6 8.4 - Below low normal Calcium, [facility] [Mass/volume] in mg/dl 10.2 Total Serum Health Serum or Plasma mg/dl System A/G Ratio 0.61 Normal (applies A/G Ratio [facility] to non-numeric Health results) System Urate 4.5 2.5 - Normal (applies Uric Acid, [facility] [Mass/volume] in mg/dl 7.5 to non-numeric Serum Health Serum or Plasma mg/dl results) System Anion gap in Serum 7.00 8.00 - Below low normal Anion Gap [facility] or Plasma mmol/L 12.00 Health mmol/L System Glomerular 56.55 Normal (applies GFR [facility] filtration to non-numeric Health rate/1.73 sq results) System M.predicted [Volume Rate/Area] in Serum or Plasma by Creatinine-based formula (CKD-EPI) eGFR will provide clinicians with a more accurate indicator of renal function then the serum creatinine. The eGFR is automa tically calculated from an empiric formula (endorsed by the National Kid[employer] ion) which incorporates age, sex, and race.Clinicians may notice surprisingly low GFR's with serum creatinine valueswithin normal range- particularly in elderly wo men (with low muscle mass).In the hospital setting, the eGFR should add an element of safety in drug dosing, in assessing the risk of IV contrast administration, and in assessing vascular risk.The NKF staging system is as follows:Normal: eGFR >90 with no kidney markersStage 1: eGFR >90 with kidney markers*Stage 2: eGFR 60- 89Stage 3: eGFR 30-59Stage 4: eGFR 15-29Stage 5: eGFR <15 (usually requir ing dialysis)*Markers include: Proteinuria, Hematuria, abnormal imaging-studies, or other blood or urine test abnormalities ID Date Data Source [id number] 09/28/2014 06:00:00 AM EDT [facility] System Name Value Range Interpretation Description Data Sup porting Code Source(s) Document(s ) Lactic 1.30 0.70 - Normal (applies Lactic Acid, [facility] Acid, {mEq/L} 2.10 to non-numeric Plasma *[facility] em Plasma mEq/L results) KI ONLY* *[facility] KI ONLY* ID Date Data Source [id number] 09/27/2014 06:00:00 AM EDT [facility] System Name Value Range Interpretation Description Data Sup porting Code Source(s) Document(s ) Type B Normal (applies Type [facility] to non-numeric Health System results) D Ab [Titer] Positive Normal (applies Rh [facility] in Serum or to non-numeric Health System Plasma results) Antibody Negative Normal (applies Antibody [facility] Screen to non-numeric Screen Health System results) ID Date Data Source [id number] 09/27/2014 06:00:00 AM EDT [facility] System Name Value Range Interpretation Description Data Sup porting Code Source(s) Document(s ) Leukocytes 4.8 4.8 - Normal (applies WBC Count [facility] [#/volume] in {10^3_uL 10.8 to non-numeric Health Unspecified } 10^3 uL results) System specimen by Automated count Erythrocytes 2.63 3.80 - Below low normal RBC Count [facility] [#/volume] in {10^6_uL 5.20 Health Blood by } 10^6 uL System Automated count Hemoglobin 8.4 12.0 - Below low normal Hemoglobin [facility] [Mass/volume] in {gm/dL} 16.0 Health Blood gm/dL System Hematocrit 24.5 % 36.0 - Below low normal Hematocrit [facility] [Volume 46.0 % Health Fraction] of System Blood Erythrocyte mean 93.2 fl 80.0 - Normal (applies MCV [facility] corpuscular 100.0 to non-numeric Health volume [Entitic fl results) System volume] by Automated count Erythrocyte mean 31.9 pg 26.0 - Normal (applies MCH [place] corpuscular 34.0 pg to non-numeric Health hemoglobin results) System [Entitic mass] by Automated count Erythrocyte mean 34.3 33.0 - Normal (applies MCHC [place] corpuscular {gm/dL} 37.0 to non-numeric Health hemoglobin gm/dL results) System concentration [Mass/volume] by Automated count Erythrocyte 15.8 % 11.5 - Above high RDW-CV [facility] distribution 14.5 % normal Health width [Entitic System volume] by Automated count Platelets 168 130 - Normal (applies Platelet [facility] [#/volume] in {10^3_uL 400 to non-numeric Count Health Plasma by } 10^3 uL results) System Automated count Platelet mean 11.3 fl 7.4 - Above high MPV [facility] volume [Entitic 10.4 fl normal Health volume] in Blood System by Automated count Monocytes 0.3 0.3 - Below low normal Monocyte # [facility] [#/volume] in {10^3_uL 0.9 Health Blood by Manual } 10^3 uL System count Eosinophils 0.00 0.05 - Below low normal Eosinophil # [place] [facility] [#/volume] in {10^3_uL 0.30 Health Blood } 10^3 uL System Neutrophils 3.0 2.0 - Normal (applies Neutrophil # [place] [facility] [#/volume] in {10^3_uL 8.1 to non-numeric Health Body fluid } 10^3 uL results) System Basophils 0.01 0.00 - Normal (applies Basophil # [facility] [#/volume] in {10^3_uL 0.10 to non-numeric Health Blood by } 10^3 uL results) System Automated count Lymphocyte # 1.5 1.0 - Normal (applies Lymphocyte # [facility] [facility] {10^3_uL 5.5 to non-numeric Health } 10^3 uL results) System Neutrophils/100 63.1 % 0.0 - Normal (applies Neutrophil % Ubaldo grace leukocytes in 120.0 % to non-numeric Health Blood by results) System Automated count Monocytes/100 6.0 % 6.0 - Normal (applies Monocyte % [facility] [facility] leukocytes in 9.0 % to non-numeric Health Blood results) System Eosinophils/100 0.0 % 1.0 - Below low normal Eosinophil % [facility] leukocytes in 3.0 % Health Unspecified System specimen Basophils/100 0.2 % 0.0 - Normal (applies Basophil % [place] leukocytes in 1.0 % to non-numeric Health Unspecified results) System specimen by Manual count Lymphocytes 30.7 % 21.0 - Normal (applies Lymphocyte % [place] [facility] [#/volume] in 51.0 % to non-numeric Health Blood by results) System Automated count ID Date Data Source [id number] 09/27/2014 06:00:00 AM EDT [facility] System Name Value Range Interpretation Description Data Sup porting Code Source(s) Document(s ) Sodium 140 137 - Normal (applies Sodium, Serum [facility] [Moles/volum mmol/L 145 to non-numeric Health Syste m e] in Serum mmol/L results) or Plasma Potassium 3.0 3.6 - Below low normal Potassium, [facility] [Mass/volume mmol/L 5.0 Serum Health System ] in Serum mmol/L or Plasma Chloride 108 98 - 107 Above high normal Chloride, [facility] [Moles/volum mmol/L mmol/L Serum Health System e] in Serum or Plasma Carbon 20.0 22.0 - Below low normal CO2, Serum [facility] dioxide, mmol/L 30.0 Health System total mmol/L [Moles/volum e] in Serum or Plasma Total 7.2 6.3 - Normal (applies Total Protein [facility] Protein mg/dl 8.2 to non-numeric Health System mg/dl results) Glucose 24 mg/dL 65 - 105 Below lower panic Glucose, Serum [facility] [Mass/volume mg/dL limits Health System ] in Serum or Plasma Result Reporting|Telephone|Hasmukh Segal| 09/10 at 9:39 AMCalled to:Hasmukh SegalTech Name:jonoCarrolleduararmand by:Hasmukh Segal / 9:38 AM Urea nitrogen 14 mg/dl 7 - 18 Normal (applies Blood Urea [facility] [Mass/volume] in mg/dl to non-numeric Nitrogen, Health S ystem Serum or Plasma results) Serum Creatinine 1.20 mg/dl 0.70 - Normal (applies Creatinine, [facility] [Mass/volume] in 1.20 to non-numeric Serum Health S ystem Serum or Plasma mg/dl results) Alkaline phosphatase 126 {IU/L} 38 - 126 Normal (applies Alkaline [facility] isoenzymes [Enzymatic IU/L to non-numeric Phosphatase, Health System activity/volume] in results) Serum Serum or Plasma by Heat stability Bilirubin.total 0.5 mg/dl 0.2 - 1.3 Normal (applies Bilirubin, [facility] [Mass/volume] in mg/dl to non-numeric Serum Total Health System Serum or Plasma results) Direct Bilirubin 0.3 mg/dl 0.0 - 0.4 Normal (applies Direct [place] mg/dl to non-numeric Bilirubin Health System results) Aspartate 90 {IU/L} 5 - 40 Above high Aspartate [facility] aminotransferase IU/L normal Transaminase, Health Sy stem [Enzymatic Serum activity/volume] in Serum or Plasma by With P-5'-P Albumin [Mass/volume] 2.7 3.9 - 5.0 Below low Albumin, Serum [facility] in Serum or Plasma {gm/dl} gm/dl normal Health Syst em I. Phosphorus 3.5 mg/dl 2.5 - 4.5 Normal (applies I. Phosphorus [facility] mg/dl to non-numeric Health System results) Alanine 57 {IU/L} 7 - 56 Above high Alanine [facility] aminotransferase IU/L normal Aminotransfera [facility] S ystem [Enzymatic se, Serum activity/volume] in Serum or Plasma Calcium [Mass/volume] 7.9 mg/dl 8.4 - Below low Calcium, Total [facility] in Serum or Plasma 10.2 normal Serum Health Syst em mg/dl A/G Ratio 0.60 Normal (applies A/G Ratio [facility] to non-numeric Health System results) Urate [Mass/volume] 5.1 mg/dl 2.5 - 7.5 Normal (applies Uric Acid, [facility] in Serum or Plasma mg/dl to non-numeric Serum Health System results) Anion gap in Serum or 12.00 8.00 - Normal (applies Anion Gap [facility] Plasma mmol/L 12.00 to non-numeric Health System mmol/L results) Glomerular filtration 45.82 Normal (applies GFR [facility] rate/1.73 sq to non-numeric Health Syste m M.predicted [Volume results) Rate/Area] in Serum or Plasma by Creatinine-based formula (CKD-EPI) eGFR will provide clinicians with a more accurate indicator of renal function then the serum creatinine. The eGFR is automa tically calculated from an empiric formula (endorsed by the National Kid[employer] ion) which incorporates age, sex, and race.Clinicians may notice surprisingly low GFR's with serum creatinine valueswithin normal range- particularly in elderly wo men (with low muscle mass).In the hospital setting, the eGFR should add an element of safety in drug dosing, in assessing the risk of IV contrast administration, and in assessing vascular risk.The NKF staging system is as follows:Normal: eGFR >90 with no kidney markersStage 1: eGFR >90 with kidney markers*Stage 2: eGFR 60- 89Stage 3: eGFR 30-59Stage 4: eGFR 15-29Stage 5: eGFR <15 (usually requir ing dialysis)*Markers include: Proteinuria, Hematuria, abnormal imaging-studies, or other blood or urine test abnormalities ID Date Data Source [id number] 09/27/2014 06:00:00 AM EDT [facility] System Name Value Range Interpretation Description Data Sup porting Code Source(s) Document(s ) Lactic 2.16 0.70 - Above high normal Lactic Acid, [facility] Acid, {mEq/L} 2.10 Plasma *[facility] Plasma mEq/L [facility]I ONLY* *[facility] KI ONLY* ID Date Data Source [id number] 09/26/2014 07:59:00 AM EDT [facility] System Name Value Range Interpretation Description Data Sup porting Code Source(s) Document(s ) Leukocytes 4.8 4.8 - Normal (applies WBC Count [facility] [#/volume] in {10^3_uL 10.8 to non-numeric Health Unspecified } 10^3 uL results) System specimen by Automated count Erythrocytes 2.56 3.80 - Below low normal RBC Count [facility] [#/volume] in {10^6_uL 5.20 Health Blood by } 10^6 uL System Automated count Hemoglobin 8.2 12.0 - Below low normal Hemoglobin [facility] [Mass/volume] in {gm/dL} 16.0 Health Blood gm/dL System Hematocrit 23.0 % 36.0 - Below low normal Hematocrit [facility] [Volume 46.0 % Health Fraction] of System Blood Erythrocyte mean 89.8 fl 80.0 - Normal (applies MCV [facility] corpuscular 100.0 to non-numeric Health volume [Entitic fl results) System volume] by Automated count Erythrocyte mean 32.0 pg 26.0 - Normal (applies MCH [place] corpuscular 34.0 pg to non-numeric Health hemoglobin results) System [Entitic mass] by Automated count Erythrocyte mean 35.7 33.0 - Normal (applies MCHC [facility] corpuscular {gm/dL} 37.0 to non-numeric Health hemoglobin gm/dL results) System concentration [Mass/volume] by Automated count Erythrocyte 15.2 % 11.5 - Above high RDW-CV [facility] distribution 14.5 % normal Health width [Entitic System volume] by Automated count Platelets 163 130 - Normal (applies Platelet [facility] [#/volume] in {10^3_uL 400 to non-numeric Count Health Plasma by } 10^3 uL results) System Automated count Platelet mean 10.6 fl 7.4 - Above high MPV [facility] volume [Entitic 10.4 fl normal Health volume] in Blood System by Automated count Monocytes 0.2 0.3 - Below low normal Monocyte # [facility] [#/volume] in {10^3_uL 0.9 Health Blood by Manual } 10^3 uL System count Eosinophils 0.04 0.05 - Below low normal Eosinophil # [facility] [#/volume] in {10^3_uL 0.30 Health Blood } 10^3 uL System Neutrophils 2.6 2.0 - Normal (applies Neutrophil # [facility] [#/volume] in {10^3_uL 8.1 to non-numeric Health Body fluid } 10^3 uL results) System Basophils 0.01 0.00 - Normal (applies Basophil # [facility] [#/volume] in {10^3_uL 0.10 to non-numeric Health Blood by } 10^3 uL results) System Automated count Lymphocyte # 1.9 1.0 - Normal (applies Lymphocyte # [facility] {10^3_uL 5.5 to non-numeric Health } 10^3 uL results) System Neutrophils/100 54.8 % 0.0 - Normal (applies Neutrophil % [facility] leukocytes in 120.0 % to non-numeric Health Blood by results) System Automated count Monocytes/100 4.4 % 6.0 - Below low normal Monocyte % [facility] leukocytes in 9.0 % Health Blood System Eosinophils/100 0.8 % 1.0 - Below low normal Eosinophil % [facility] leukocytes in 3.0 % Health Unspecified System specimen Basophils/100 0.2 % 0.0 - Normal (applies Basophil % [facility] leukocytes in 1.0 % to non-numeric Health Unspecified results) System specimen by Manual count Lymphocytes 39.8 % 21.0 - Normal (applies Lymphocyte % [facility] [#/volume] in 51.0 % to non-numeric Health Blood by results) System Automated count ID Date Data Source [id number] 09/26/2014 07:59:[address] [facility] alth System Name Value Range Interpretation Code Description Data Nyla rce(s) Supporting Document(s ) HbA1C 7.4 % 4.6 - 6.2 % Above high normal HbA1C [facility] System ID Date Data Source [id number] 09/26/2014 06:00:00 AM EDT [facility] System Name Value Range Interpretation Description Data Sup porting Code Source(s) Document(s ) Levetiracetam <1.0 Normal (applies LevETIRAcetam [facility] [Mass/volume] Unable to to non-numeric Level, Serum Health in Serum or flag results) System Plasma abnormal result(s), please refer to reference range(s) below: Therapeutic Levels: Drug Dosage Trough Peak 500 mg BID 3.1-10.0 mcg/mL 10.0-25.0 mcg/mL 1000 mg BID 4.9-37.1 mcg/mL 30.0-40.0 mcg/mL 1500 mg BID 7.0-34.0 mcg/mL 36.1-70.0 mcg/mL Toxic level: Not established This test was performed at: [facility] [address] [place], [place] ID Date Data Source [id number] 09/26/2014 06:00:00 AM EDT [facility] Name Value Range Interpretation Description Data Sup porting Code Source(s) Document(s ) Thyrotropin 2.899 0.380 - Normal (applies Thyroid [facility] [Mass/volume] 6.150 to non-numeric Stimulating Health in Serum or results) Hormone, Serum System Plasma ID Date Data Source [id number] 09/26/2014 06:00:00 AM EDT [facility] System Name Value Range Interpretation Description Data Sup porting Code Source(s) Document(s ) Sodium 132 137 - Below low normal Sodium, Serum [facility] [Moles/volume] in mmol/L 145 Health Serum or Plasma mmol/L System Potassium 3.1 3.6 - Below low normal Potassium, [facility] [Mass/volume] in mmol/L 5.0 Serum Health Serum or Plasma mmol/L System Chloride 101 98 - Normal (applies Chloride, [facility] [Moles/volume] in mmol/L 107 to non-numeric Serum Health Serum or Plasma mmol/L results) System Carbon dioxide, 21.0 22.0 - Below low normal CO2, Serum [facility] [facility] total mmol/L 30.0 Health [Moles/volume] in mmol/L System Serum or Plasma Total Protein 7.2 6.3 - Normal (applies Total Protein [facility] mg/dl 8.2 to non-numeric Health mg/dl results) System Glucose 60 65 - Below low normal Glucose, [facility] [Mass/volume] in mg/dL 105 Serum Health Serum or Plasma mg/dL System Urea nitrogen 22 7 - 18 Above high Blood Urea [facility] [Mass/volume] in mg/dl mg/dl normal Nitrogen, Health Serum or Plasma Serum System Creatinine 1.20 0.70 - Normal (applies Creatinine, [facility] [Mass/volume] in mg/dl 1.20 to non-numeric Serum Health Serum or Plasma mg/dl results) System Alkaline 123 38 - Normal (applies Alkaline [facility] phosphatase {IU/L} 126 to non-numeric Phosphatase, Health isoenzymes IU/L results) Serum System [Enzymatic activity/volume] in Serum or Plasma by Heat stability Bilirubin.total 0.9 0.2 - Normal (applies Bilirubin, [facility] [Mass/volume] in mg/dl 1.3 to non-numeric Serum Total Health Serum or Plasma mg/dl results) System Direct Bilirubin 0.4 0.0 - Normal (applies Direct [facility] mg/dl 0.4 to non-numeric Bilirubin Health mg/dl results) System Aspartate 97 5 - 40 Above high Aspartate [facility] aminotransferase {IU/L} IU/L normal Transaminase, Health [Enzymatic Serum System activity/volume] in Serum or Plasma by With P-5'-P Albumin 2.7 3.9 - Below low normal Albumin, [facility] [Mass/volume] in {gm/dl} 5.0 Serum Health Serum or Plasma gm/dl System I. Phosphorus 2.7 2.5 - Normal (applies I. Phosphorus [facility] mg/dl 4.5 to non-numeric Health mg/dl results) System Alanine 63 7 - 56 Above high Alanine [facility] aminotransferase {IU/L} IU/L normal Aminotransfer Health [Enzymatic ase, Serum System activity/volume] in Serum or Plasma Calcium 7.9 8.4 - Below low normal Calcium, [facility] [Mass/volume] in mg/dl 10.2 Total Serum Health Serum or Plasma mg/dl System A/G Ratio 0.60 Normal (applies A/G Ratio [facility] to non-numeric Health results) System Urate 6.5 2.5 - Normal (applies Uric Acid, [facility] [Mass/volume] in mg/dl 7.5 to non-numeric Serum Health Serum or Plasma mg/dl results) System Anion gap in Serum 10.00 8.00 - Normal (applies Anion Gap [facility] or Plasma mmol/L 12.00 to non-numeric Health mmol/L results) System Glomerular 45.82 Normal (applies GFR [facility] filtration to non-numeric Health rate/1.73 sq results) System M.predicted [Volume Rate/Area] in Serum or Plasma by Creatinine-based formula (CKD-EPI) eGFR will provide clinicians with a more accurate indicator of renal function then the serum creatinine. The eGFR is automa tically calculated from an empiric formula (endorsed by the National [employer] ion) which incorporates age, sex, and race.Clinicians may notice surprisingly low GFR's with serum creatinine valueswithin normal range- particularly in elderly wo men (with low muscle mass).In the hospital setting, the eGFR should add an element of safety in drug dosing, in assessing the risk of IV contrast administration, and in assessing vascular risk.The NKF staging system is as follows:Normal: eGFR >90 with no kidney markersStage 1: eGFR >90 with kidney markers*Stage 2: eGFR 60- 89Stage 3: eGFR 30-59Stage 4: eGFR 15-29Stage 5: eGFR <15 (usually requir ing dialysis)*Markers include: Proteinuria, Hematuria, abnormal imaging-studies, or other blood or urine test abnormalities ID Date Data Source [id number] 09/26/2014 06:00:00 AM EDT [facility] Name Value Range Interpretation Description Data Sup porting Code Source(s) Document(s ) Triglyceride 62 mg/dl 35 - 135 Normal (applies Triglycerides [facility] [Mass/volume] mg/dl to non-numeric , Serum Health in Serum or results) System Plasma Optimal = < 100 mg/dLBoderline High = 15 0 - 199 mg/dLHigh = 200 - 499 mg/dLVery High = > 500 mg/dL Cholesterol 92 mg/dl *.* mg/dl Normal (applies Cholesterol, [facility] [Mass/volume] in to non-numeric Serum Health S ystem Serum or Plasma results) <200 mg/dL = [id number] - 239 md/dL = Borderline>240 mg/dL = High Risk Cholesterol in HDL 38.0 mg/dL 32.0 - Normal (applies HDL Choleste rol, [facility] [Mass/volume] in 75.0 mg/dL to non-numeric Serum Health System Serum or Plasma results) Cholesterol in LDL 41.6 mg/dL Normal (applies Low Density [facility] [Mass/volume] in to non-numeric Lipoprotein, Healt h System Serum or Plasma results) Calculated OPTIMAL: LESS THAN 100 mg/dLNEAR OPTIMAL : 100 - 129 mg/dLBODERLINE HIGH: 130 - 150 mg/dL Cholesterol in VLDL 12.4 Normal (applies to VLDL, Serum [facility] [Mass/volume] in non-numeric System Serum or Plasma results) CHD Risk 2.42 2.40 - Normal (applies to CHD Risk [facility] 5.30 non-numeric System results) ID Date Data Source [id number] 09/26/2014 06:00:00 AM EDT [facility] System Name Value Range Interpretation Description Data Sup porting Code Source(s) Document(s ) Lactic 2.48 0.70 - Above high normal Lactic Acid, [facility] Acid, {mEq/L} 2.10 Plasma *[facility] Plasma mEq/L KI ONLY* *[facility] KI ONLY* [place] ID Date Data Source [id number] 09/26/2014 06:00:00 AM EDT [facility] System Name Value Range Interpretation Description Data Sup porting Code Source(s) Document(s ) Iron/Iron 152.00 250 - Below low normal Total Iron [facility] binding {mcg/dL} 450 Binding Health capacity.tota mcg/dL Capacity-(RO) System l [Mass Ratio] in Serum or Plasma % Saturation 93.00 % 11 - 50 Above high normal % Saturation [facility] System Test Performed at: [employer] , [place] [address] Alvaro Cuba M.D. Iron. 142 ug/dL 45 - 160 ug/dL Normal (applies to Iron. [facility] non-numeric results) System Test Performed at: [facility] , [place] [address] Alvaro Cuba M.D. ID Date Data Source [id number] 09/26/2014 06:00:00 AM EDT [facility] System Name Value Range Interpretation Description Data Sup porting Code Source(s) Document(s ) Ferritin 1500.0 14.0 - Above high normal [facility]in, [facility] [Mass/volum ng/ml 235.0 Serum [facility] e] in Serum ng/ml or Plasma ID Date Data Source [id number] 09/25/2014 10:15:00 PM EDT [facility] System Name Value Range Interpretation Description Data Sup porting Code Source(s) Document(s ) Sodium < 20 30.0 - Below low normal Sodium Spot, [facility] Spot, 90.0 Urine [facility] Urine mmol/L ID Date Data Source [id number] 09/25/2014 10:15:00 PM EDT [facility] System Name Value Range Interpretation Description Data Sup porting Code Source(s) Document(s ) Osmolalit 491 50 - 1400 Normal (applies Osmolality, [facility] y, Spot {mOsm/kg} mOsm/kg to non-numeric Spot Urine [facility] Urine results) ID Date Data Source [id number] 09/25/2014 10:15:00 PM EDT [facility] System Name Value Range Interpretation Description Data Sup porting Code Source(s) Document(s ) Osmolality of 278 280 - Below low normal Osmolality, [facility] Serum or {mOsm/kg 300 Serum Health Plasma } mOsm/kg System ID Date Data Source [id number] 09/25/2014 10:15:00 PM EDT [facility] Name Value Range Interpretation Description Data Sup porting Code Source(s) Document(s ) Amphetamine Negative Negative Normal (applies Amphetamine [facility] [Mass/volume] ng/ml to non-numeric Level, Urine Health in Urine results) System Cut-off = 1000 ng/mL Barbiturates Negative Negative Normal (applies Barbiturate [facility] [Mass/volume] in ng/ml to non-numeric Screen, Urine [facility] System Urine by Screen results) method Cut-off = 200 ng/mL Benzodiazepines Negative Negative Normal Benzodiazepines, [facility] [Mass/volume] in ng/mL (applies to Urine Health Urine non-numeric System results) Cut-off = 200 ng/mL Cocaine Negative Negative Normal (applies Cocaine [facility] metabolites.other ng/ml to non-numeric Metabolite Health System [Mass/volume] in results) Screen, Urine Urine Cut-off = 300 ng/mL Methadone Negative Negative Normal (applies Methadone [facility] [Mass/volume] in to non-numeric Level, Urine [facility] System Urine results) Cut-off = 300 ng/mL Opiate 300, Negative Negative ng/ml Normal (applies to Opiate 300, [facility] Urine non-numeric Urine Health System results) Cut-off = 300 ng/mL Phencyclidine Negative Negative Normal (applies Phencyclidine, [facility] [Mass/volume] in ng/ml to non-numeric Urine Health S yste Urine results) Cut-off = 25 ng/mL THC Negative Negative ng/mL Normal (app[facility] non-numeric results) Cutt-off = 50These results are for medic al treatment only. The positive findings are unconfirmed. Request confirmatory/quanti tative test if needed. ID Date Data Source [id number] 09/25/2014 09:17:00 PM EDT [facility] Name Value Range Interpretation Description Data Sup porting Code Source(s) Document(s ) Lactic 4.58 0.70 - Above high normal Lactic Acid, [facility] Acid, {mEq/L} 2.10 Plasma *[facility] Plasma mEq/L KI ONLY* *[facility] KI ONLY* ID Date Data Source [id number] 09/25/2014 09:17:00 PM EDT [facility] System Name Value Range Interpretation Description Data Sup porting Code Source(s) Document(s ) Bacteria NO GROWTH Culture [facility] identified in Bacteria Blood Health Syst em Blood by Aerobe culture ID Date Data Source [id number] 09/25/2014 09:17:00 PM EDT [facility] System Name Value Range Interpretation Description Data Sup porting Code Source(s) Document(s ) Bacteria NO GROWTH Culture [facility] identified in Bacteria Blood Health Syst em Blood by Aerobe culture ID Date Data Source [id number] 09/25/2014 09:16:00 PM EDT [facility] Name Value Range Interpretation Description Data Sup porting Code Source(s) Document(s ) Deprecated Micro Result Normal (applies Aerobic [facility] Bacteria to non-numeric Culture, Urine Health identified in results) System Urine by Aerobe culture XXX Escherichia Organism [facility] microorganism coli Health serotype System [Identifier] in Isolate by Agglutination [place] Count > 100,000 [place] Count [facility] CFU/ML Health System Amikacin <=16 - Amikacin [facility] [Susceptibili Sensitive Health ty] System Ampicillin >16 Resistant - Ampicillin [facility] [Susceptibili Health ty] System Ampicillin+Nielsen 16/8 - [facility] lbactam Intermediate Ampicillin/Sulb Health [Susceptibili actam System ty] Aztreonam <=8 Sensitive - Aztreonam [facility] [Susceptibili Health ty] System Cefazolin <=8 Sensitive - cefazolin [facility] [Susceptibili Health ty] System Cefoxitin <=8 Sensitive - Cefoxitin [facility] [Mass/volume] Health in System Unspecified specimen Ceftriaxone <=8 Sensitive - Ceftriaxone [facility] [Susceptibili Health ty] System Ciprofloxacin >2 Resistant - [facility] [Susceptibili Ciprofloxacin Health ty] System Ertapenem <=1 Sensitive - Ertapenem [facility] [Susceptibili Health ty] by System Minimum inhibitory concentration (RADHA) Gentamicin >8 Resistant - Gentamicin [facility] [Susceptibili Health ty] System Imipenem <=4 Sensitive - Imipenem [facility] [Mass/volume] Health in System Unspecified specimen Nitrofurantoi <=32 - [facility] n Sensitive Nitrofurantoin Health [Mass/volume] System in Serum or Plasma Piperacillin+ <=16 - [facility] Tazobactam Sensitive Piperacillin/Ta Health [Susceptibili zobactam System ty] Trimethoprim+ <=2/38 - [facility] Sulfamethoxaz Sensitive Trimethoprim/Nielsen Health ole lfamethoxazole System [Susceptibili ty] ID Date Data Source [id number] 09/25/2014 08:00:00 PM EDT [facility] System Name Value Range Interpretation Description Data Sup porting Code Source(s) Document(s ) Acetone, Negative Negative Normal (applies Acetone, [facility] Serum to non-numeric Serum Health Qualitative results) Qualitative System ID Date Data Source [id number] 09/25/2014 06:37:00 PM EDT [facility] System Name Value Range Interpretation Description Data Sup porting Code Source(s) Document(s ) Color YELLOW Yellow Normal (applies Color [facility] to non-numeric Health results) System Appearance of CLOUDY Clear Normal (applies Urine [facility] Urine to non-numeric Appearance Health results) System Specific 1.010 Normal (applies Urine Specific [facility] gravity of to non-numeric [facility] Urine results) System pH.. 5.5 4.6 - 8.0 Normal (applies pH.. [facility] {pH_units} pH units to non-numeric Health results) System Glucose, UA > =1000 < 50 Normal (applies Glucose, UA [facility] mg/dl to non-numeric Health results) System Protein NEGATIVE < 30 Normal (applies Protein [facility] [Mass/volume] mg/dl to non-numeric Health in Serum or results) System Plasma Bilirubin NEGATIVE Negative Normal (applies Bilirubin [facility] Urine Sm to Lg to non-numeric Urine Health results) System Urobilinogen 0.2 mg/dL Normal (applies Urobilinogen [facility] [Mass/volume] to non-numeric UA Health in Urine results) System Ketones NEGATIVE Negative Normal (applies Ketones UA [facility] [Mass/volume] Tr to Lg to non-numeric Health in Urine results) System Nitrate+Nitrit NEGATIVE Negative Normal (applies Nitrite [facility] Neg/Pos to non-numeric Health [Mass/volume] results) System in Unspecified specimen Leukocyte MODERATE Negative Abnormal Leukocyte [facility] esterase Tr to Lg (applies to Esterase Health [Units/volume] non-numeric Concentration System in Urine results) Leukocytes 50-100 0 - 2 Normal (applies White Blood [facility] [#/volume] in /HPF to non-numeric Cells Health Unspecified results) System specimen by Automated count Red Blood 3-5 0 - 1 Normal (applies Red Blood [facility] Cells /HPF to non-numeric Cells Health results) System Epithelial 2-3 0 - 3 Normal (applies Epithelial [facility] cells /HPF to non-numeric Cells Health [Presence] in results) System Unspecified specimen by Wet preparation Mucus FEW 0 - 1 Normal (applies Mucus [facility] /LPF to non-numeric Health results) System Bacteria LARGE 0 - 5 Normal (applies Bacteria [facility] [Presence] in /HPF to non-numeric Health Unspecified results) System specimen Urine Blood TRACE-LYSE Normal (applies Urine Blood [facility] D to non-numeric Health results) System ID Date Data Source [id number] 09/25/2014 06:37:00 PM EDT [facility] Name Value Range Interpretation Description Data Sup porting Code Source(s) Document(s ) Leukocytes 6.4 4.8 - Normal (applies WBC Count [facility] [#/volume] in {10^3_uL 10.8 to non-numeric Health Unspecified } 10^3 uL results) System specimen by Automated count Erythrocytes 3.01 3.80 - Below low normal RBC Count [facility] [#/volume] in {10^6_uL 5.20 Health Blood by } 10^6 uL System Automated count Hemoglobin 9.5 12.0 - Below low normal Hemoglobin [facility] [Mass/volume] in {gm/dL} 16.0 Health Blood gm/dL System Hematocrit 27.0 % 36.0 - Below low normal Hematocrit [facility] [Volume 46.0 % Health Fraction] of System Blood Erythrocyte mean 89.7 fl 80.0 - Normal (applies MCV [facility] corpuscular 100.0 to non-numeric Health volume [Entitic fl results) System volume] by Automated count Erythrocyte mean 31.6 pg 26.0 - Normal (applies MCH [facility] corpuscular 34.0 pg to non-numeric Health hemoglobin results) System [Entitic mass] by Automated count Erythrocyte mean 35.2 33.0 - Normal (applies MCHC [facility] corpuscular {gm/dL} 37.0 to non-numeric Health hemoglobin gm/dL results) System concentration [Mass/volume] by Automated count Erythrocyte 15.3 % 11.5 - Above high RDW-CV [facility] distribution 14.5 % normal Health width [Entitic System volume] by Automated count Platelets 188 130 - Normal (applies Platelet [facility] [#/volume] in {10^3_uL 400 to non-numeric Count Health Plasma by } 10^3 uL results) System Automated count Platelet mean 11.7 fl 7.4 - Above high MPV [facility] volume [Entitic 10.4 fl normal Health volume] in Blood System by Automated count Monocytes 0.3 0.3 - Below low normal Monocyte # [facility] [#/volume] in {10^3_uL 0.9 Health Blood by Manual } 10^3 uL System count Eosinophils 0.01 0.05 - Below low normal Eosinophil # [facility] [#/volume] in {10^3_uL 0.30 Health Blood } 10^3 uL System Neutrophils 4.2 2.0 - Normal (applies Neutrophil # [facility] [#/volume] in {10^3_uL 8.1 to non-numeric Health Body fluid } 10^3 uL results) System Basophils 0.02 0.00 - Normal (applies Basophil # [facility] [#/volume] in {10^3_uL 0.10 to non-numeric Health Blood by } 10^3 uL results) System Automated count Lymphocyte # 1.9 1.0 - Normal (applies Lymphocyte # [facility] {10^3_uL 5.5 to non-numeric Health } 10^3 uL results) System Neutrophils/100 66.4 % 0.0 - Normal (applies Neutrophil % [facility] leukocytes in 120.0 % to non-numeric Health Blood by results) System Automated count Monocytes/100 3.9 % 6.0 - Below low normal Monocyte % [facility] leukocytes in 9.0 % Health Blood System Eosinophils/100 0.2 % 1.0 - Below low normal Eosinophil % [facility] leukocytes in 3.0 % Health Unspecified System specimen Basophils/100 0.3 % 0.0 - Normal (applies Basophil % [facility] leukocytes in 1.0 % to non-numeric Health Unspecified results) System specimen by Manual count Lymphocytes 29.2 % 21.0 - Normal (applies Lymphocyte % [facility] [#/volume] in 51.0 % to non-numeric Health Blood by results) System Automated count ID Date Data Source [id number] 09/25/2014 06:37:00 PM EDT [facility] Name Value Range Interpretation Description Data Sup porting Code Source(s) Document(s ) Sodium 122 137 - Below lower panic Sodium, Serum [facility] [Moles/vol mmol/L 145 limits Health System ume] in mmol/L Serum or Plasma Result Reporting|Telephone|HASMUKH HOYOS/JOANNE| 09/25/2014 at 7:51 PMCalled to:HASMUKH Morin Name:NAOMI Godinez by: HASMUKH HOYOS/JOANNE 09/25/2014 / 7:50 PM Potassium 3.9 mmol/L 3.6 - 5.0 Normal (applies Potassium, [facility] [Mass/volume] in mmol/L to non-numeric Serum Health S ystem Serum or Plasma results) Chloride 89 mmol/L 98 - 107 Below low Chloride, [facility] [Moles/volume] in mmol/L normal Serum Health Syste m Serum or Plasma Carbon dioxide, 17.0 mmol/L 22.0 - 30.0 Below low CO2, Serum [facility] total mmol/L normal Health System [Moles/volume] in Serum or Plasma Glucose 546 mg/dL 65 - 105 Above upper Glucose, Serum [facility] [Mass/volume] in mg/dL panic limits Health Sys tem Serum or Plasma Result Reporting|Telephone|HASMUKH HOYOS/JOANNE| 09/25/2014 at 7:51 PMCalled to:HASMUKH Morin Name:NAOMI Godinez by: HASMUKH HOYOS/JOANNE 09/25/2014 / 7:50 PM Urea nitrogen 24 mg/dl 7 - 18 Above high Blood Urea [facility] [Mass/volume] in mg/dl normal Nitrogen, Serum Health System Serum or Plasma Creatinine 1.70 mg/dl 0.70 - 1.20 Above high Creatinine, [facility] [Mass/volume] in mg/dl normal Serum Health System Serum or Plasma Calcium 8.2 mg/dl 8.4 - 10.2 Below low Calcium, Total [facility] [Mass/volume] in mg/dl normal Serum Health System Serum or Plasma Anion gap in Serum 16.00 8.00 - Above high Anion Gap [facility] or Plasma mmol/L 12.00 normal Health System mmol/L ID Date Data Source [id number] 09/25/2014 06:37:00 PM EDT [facility] System Name Value Range Interpretation Description Data Sup porting Code Source(s) Document(s ) Albumin 3.3 3.9 - Below low normal Albumin, [facility] [Mass/volume] in {gm/dl} 5.0 Serum Health Serum or Plasma gm/dl System Bilirubin.total 0.7 0.2 - Normal (applies Bilirubin, [facility] [Mass/volume] in mg/dl 1.3 to non-numeric Serum Total Health Serum or Plasma mg/dl results) System Aspartate 119 5 - 40 Above high Aspartate [facility] aminotransferase {IU/L} IU/L normal Transaminase, Health [Enzymatic Serum System activity/volume] in Serum or Plasma by With P-5'-P Alanine 76 7 - 56 Above high Alanine [facility] aminotransferase {IU/L} IU/L normal Aminotransfer Health [Enzymatic ase, Serum System activity/volume] in Serum or Plasma Alkaline 157 38 - Above high Alkaline [facility] phosphatase {IU/L} 126 normal Phosphatase, Health isoenzymes IU/L Serum System [Enzymatic activity/volume] in Serum or Plasma by Heat stability Direct Bilirubin 0.4 0.0 - Normal (applies Direct [facility] mg/dl 0.4 to non-numeric Bilirubin Health mg/dl results) System Total Protein 8.9 6.3 - Above high Total Protein [facility] mg/dl 8.2 normal Health mg/dl System ID Date Data Source [id number] 08/05/2014 06:00:00 AM EDT [facility] System Name Value Range Interpretation Description Data Sup porting Code Source(s) Document(s ) Leukocytes 5.2 4.8 - Normal (applies WBC Count [facility] [#/volume] in {10^3_uL 10.8 to non-numeric Health Unspecified } 10^3 uL results) System specimen by Automated count Erythrocytes 2.95 3.80 - Below low normal RBC Count [facility] [#/volume] in {10^6_uL 5.20 Health Blood by } 10^6 uL System Automated count Hemoglobin 9.5 12.0 - Below low normal Hemoglobin [facility] [Mass/volume] in {gm/dL} 16.0 Health Blood gm/dL System Hematocrit 27.6 % 36.0 - Below low normal Hematocrit [facility] [Volume 46.0 % Health Fraction] of System Blood Erythrocyte mean 93.6 fl 80.0 - Normal (applies MCV [facility] corpuscular 100.0 to non-numeric Health volume [Entitic fl results) System volume] by Automated count Erythrocyte mean 32.2 pg 26.0 - Normal (applies MCH [facility] corpuscular 34.0 pg to non-numeric Health hemoglobin results) System [Entitic mass] by Automated count Erythrocyte mean 34.4 33.0 - Normal (applies MCHC [facility] corpuscular {gm/dL} 37.0 to non-numeric Health hemoglobin gm/dL results) System concentration [Mass/volume] by Automated count Erythrocyte 14.1 % 11.5 - Normal (applies RDW-CV [facility] distribution 14.5 % to non-numeric Health width [Entitic results) System volume] by Automated count Platelets 111 130 - Below low normal Platelet [facility] [#/volume] in {10^3_uL 400 Count Health Plasma by } 10^3 uL System Automated count Platelet mean 11.2 fl 7.4 - Above high MPV [facility] volume [Entitic 10.4 fl normal Health volume] in Blood System by Automated count Monocytes 0.3 0.3 - Below low normal Monocyte # [facility] [#/volume] in {10^3_uL 0.9 Health Blood by Manual } 10^3 uL System count Eosinophils 0.03 0.05 - Below low normal Eosinophil # [facility] [#/volume] in {10^3_uL 0.30 Health Blood } 10^3 uL System Neutrophils 3.0 2.0 - Normal (applies Neutrophil # [facility] [#/volume] in {10^3_uL 8.1 to non-numeric Health Body fluid } 10^3 uL results) System Basophils 0.01 0.00 - Normal (applies Basophil # [facility] [#/volume] in {10^3_uL 0.10 to non-numeric Health Blood by } 10^3 uL results) System Automated count Lymphocyte # 1.9 1.0 - Normal (applies Lymphocyte # [facility] {10^3_uL 5.5 to non-numeric Health } 10^3 uL results) System Neutrophils/100 57.4 % 0.0 - Normal (applies Neutrophil % Ubaldo grace leukocytes in 120.0 % to non-numeric Health Blood by results) System Automated count Monocytes/100 5.2 % 6.0 - Below low normal Monocyte % [facility] leukocytes in 9.0 % Health Blood System Eosinophils/100 0.6 % 1.0 - Below low normal Eosinophil % [facility] leukocytes in 3.0 % Health Unspecified System specimen Basophils/100 0.2 % 0.0 - Normal (applies Basophil % [facility] leukocytes in 1.0 % to non-numeric Health Unspecified results) System specimen by Manual count Lymphocytes 36.6 % 21.0 - Normal (applies Lymphocyte % [facility] [#/volume] in 51.0 % to non-numeric Health Blood by results) System Automated count ID Date Data Source [id number] 08/05/2014 06:00:00 AM EDT [facility] System Name Value Range Interpretation Description Data Sup porting Code Source(s) Document(s ) Sodium 135 137 - Below low normal Sodium, Serum [facility] [Moles/volume] in mmol/L 145 Health Serum or Plasma mmol/L System Potassium 4.5 3.6 - Normal (applies Potassium, [facility] [Mass/volume] in mmol/L 5.0 to non-numeric Serum Health Serum or Plasma mmol/L results) System Chloride 103 98 - Normal (applies Chloride, [facility] [Moles/volume] in mmol/L 107 to non-numeric Serum Health Serum or Plasma mmol/L results) System Carbon dioxide, 21.0 22.0 - Below low normal CO2, Serum [facility] total mmol/L 30.0 Health [Moles/volume] in mmol/L System Serum or Plasma Total Protein 7.3 6.3 - Normal (applies Total Protein [facility] mg/dl 8.2 to non-numeric Health mg/dl results) System Glucose 146 65 - Above high Glucose, [facility] [Mass/volume] in mg/dL 105 normal Serum Health Serum or Plasma mg/dL System Urea nitrogen 11 7 - 18 Normal (applies Blood Urea [facility] [Mass/volume] in mg/dl mg/dl to non-numeric Nitrogen, Health Serum or Plasma results) Serum System Creatinine 1.30 0.70 - Above high Creatinine, [facility] [Mass/volume] in mg/dl 1.20 normal Serum Health Serum or Plasma mg/dl System Alkaline 105 38 - Normal (applies Alkaline [facility] phosphatase {IU/L} 126 to non-numeric Phosphatase, Health isoenzymes IU/L results) Serum System [Enzymatic activity/volume] in Serum or Plasma by Heat stability Bilirubin.total 1.1 0.2 - Normal (applies Bilirubin, [facility] [Mass/volume] in mg/dl 1.3 to non-numeric Serum Total Health Serum or Plasma mg/dl results) System Direct Bilirubin 0.5 0.0 - Above high Direct [facility] mg/dl 0.4 normal Bilirubin [facility] mg/dl System Aspartate 99 5 - 40 Above high Aspartate [facility] aminotransferase {IU/L} IU/L normal Transaminase, Health [Enzymatic Serum System activity/volume] in Serum or Plasma by With P-5'-P Albumin 3.0 3.9 - Below low normal Albumin, [facility] [Mass/volume] in {gm/dl} 5.0 Serum Health Serum or Plasma gm/dl System I. Phosphorus 3.1 2.5 - Normal (applies I. Phosphorus [facility] mg/dl 4.5 to non-numeric Health mg/dl results) System Alanine 84 7 - 56 Above high Alanine [facility] aminotransferase {IU/L} IU/L normal Aminotransfer Health [Enzymatic ase, Serum System activity/volume] in Serum or Plasma Calcium 7.9 8.4 - Below low normal Calcium, [facility] [Mass/volume] in mg/dl 10.2 Total Serum Health Serum or Plasma mg/dl System A/G Ratio 0.70 Normal (applies A/G Ratio [facility] to non-numeric Health results) System Urate 6.9 2.5 - Normal (applies Uric Acid, [facility] [Mass/volume] in mg/dl 7.5 to non-numeric Serum Health Serum or Plasma mg/dl results) System Anion gap in Serum 11.00 8.00 - Normal (applies Anion Gap Ubaldo grace or Plasma mmol/L 12.00 to non-numeric Health mmol/L results) System Glomerular 41.80 Normal (applies GFR [facility] filtration to non-numeric Health rate/1.73 sq results) System M.predicted [Volume Rate/Area] in Serum or Plasma by Creatinine-based formula (CKD-EPI) eGFR will provide clinicians with a more accurate indicator of renal function then the serum creatinine. The eGFR is automa tically calculated from an empiric formula (endorsed by the National [employer] ion) which incorporates age, sex, and race.Clinicians may notice surprisingly low GFR's with serum creatinine valueswithin normal range- particularly in elderly wo men (with low muscle mass).In the hospital setting, the eGFR should add an element of safety in drug dosing, in assessing the risk of IV contrast administration, and in assessing vascular risk.The NKF staging system is as follows:Normal: eGFR >90 with no kidney markersStage 1: eGFR >90 with kidney markers*Stage 2: eGFR 60- 89Stage 3: eGFR 30-59Stage 4: eGFR 15-29Stage 5: eGFR <15 (usually requir ing dialysis)*Markers include: Proteinuria, Hematuria, abnormal imaging-studies, or other blood or urine test abnormalities ID Date Data Source [id number] 08/05/2014 06:00:00 AM EDT [facility] System Name Value Range Interpretation Description Data Sup porting Code Source(s) Document(s ) Lactic 1.85 0.70 - Normal (applies Lactic Acid, [facility] Acid, {mEq/L} 2.10 to non-numeric Plasma *[facility] em Plasma mEq/L results) KI ONLY* *[facility] KI ONLY* ID Date Data Source [id number] 08/04/2014 09:14:00 AM EDT [facility] Gonsales [facility] System Name Value Range Interpretation Description Data Sup porting Code Source(s) Document(s ) Lactic 3.63 0.70 - Above high normal Lactic Acid, [facility] Acid, {mEq/L} 2.10 Plasma *[facility] Plasma mEq/L [facility] ONLY* *[facility] KI ONLY* ID Date Data Source [id number] 08/04/2014 06:00:00 AM EDT [facility] System Name Value Range Interpretation Description Data Sup porting Code Source(s) Document(s ) Leukocytes 6.0 4.8 - Normal (applies WBC Count [facility] [#/volume] in {10^3_uL 10.8 to non-numeric Health Unspecified } 10^3 uL results) System specimen by Automated count Erythrocytes 2.77 3.80 - Below low normal RBC Count [facility] [#/volume] in {10^6_uL 5.20 Health Blood by } 10^6 uL System Automated count Hemoglobin 9.0 12.0 - Below low normal Hemoglobin [facility] [Mass/volume] in {gm/dL} 16.0 Health Blood gm/dL System Hematocrit 25.6 % 36.0 - Below low normal Hematocrit [facility] [Volume 46.0 % Health Fraction] of System Blood Erythrocyte mean 92.4 fl 80.0 - Normal (applies MCV [facility] corpuscular 100.0 to non-numeric Health volume [Entitic fl results) System volume] by Automated count Erythrocyte mean 32.5 pg 26.0 - Normal (applies MCH [facility] corpuscular 34.0 pg to non-numeric Health hemoglobin results) System [Entitic mass] by Automated count Erythrocyte mean 35.2 33.0 - Normal (applies MCHC [facility] corpuscular {gm/dL} 37.0 to non-numeric Health hemoglobin gm/dL results) System concentration [Mass/volume] by Automated count Erythrocyte 14.0 % 11.5 - Normal (applies RDW-CV [facility] distribution 14.5 % to non-numeric Health width [Entitic results) System volume] by Automated count Platelets 106 130 - Below low normal Platelet [facility] [#/volume] in {10^3_uL 400 Count Health Plasma by } 10^3 uL System Automated count Platelet mean 11.4 fl 7.4 - Above high MPV [facility] volume [Entitic 10.4 fl normal Health volume] in Blood System by Automated count Monocytes 0.3 0.3 - Below low normal Monocyte # [facility] [#/volume] in {10^3_uL 0.9 Health Blood by Manual } 10^3 uL System count Eosinophils 0.00 0.05 - Below low normal Eosinophil # [facility] [#/volume] in {10^3_uL 0.30 Health Blood } 10^3 uL System Neutrophils 4.1 2.0 - Normal (applies Neutrophil # [facility] [#/volume] in {10^3_uL 8.1 to non-numeric Health Body fluid } 10^3 uL results) System Basophils 0.01 0.00 - Normal (applies Basophil # [facility] [#/volume] in {10^3_uL 0.10 to non-numeric Health Blood by } 10^3 uL results) System Automated count Lymphocyte # 1.7 1.0 - Normal (applies Lymphocyte # [facility] {10^3_uL 5.5 to non-numeric Health } 10^3 uL results) System Neutrophils/100 67.7 % 0.0 - Normal (applies Neutrophil % Ubaldo grace leukocytes in 120.0 % to non-numeric Health Blood by results) System Automated count Monocytes/100 4.1 % 6.0 - Below low normal Monocyte % [facility] leukocytes in 9.0 % Health Blood System Eosinophils/100 0.0 % 1.0 - Below low normal Eosinophil % [facility] leukocytes in 3.0 % Health Unspecified System specimen Basophils/100 0.2 % 0.0 - Normal (applies Basophil % [facility] leukocytes in 1.0 % to non-numeric Health Unspecified results) System specimen by Manual count Lymphocytes 28.0 % 21.0 - Normal (applies Lymphocyte % [facility] [#/volume] in 51.0 % to non-numeric Health Blood by results) System Automated count ID Date Data Source [id number] 08/04/2014 06:00:00 AM EDT [facility] System Name Value Range Interpretation Description Data Sup porting Code Source(s) Document(s ) Sodium 128 137 - Below lower panic Sodium, Serum [facility] [Moles/vol mmol/L 145 limits Health System ume] in mmol/L Serum or Plasma Result Reporting|Telephone|LASHONDA DOZIER| at 11:36 AMCalled to:LASHONDA DOZIERTech Name:TBReadback by:LASHONDA DOZIER 08/04/2014 / 11:35 AM Potassium 3.3 mmol/L 3.6 - 5.0 Below low Potassium, [facility] [Mass/volume] in mmol/L normal Serum Health System Serum or Plasma Chloride 99 mmol/L 98 - 107 Normal Chloride, Serum [facility] [Moles/volume] in mmol/L (applies to Health Sys tem Serum or Plasma non-numeric results) Carbon dioxide, 16.0 mmol/L 22.0 - 30.0 Below low CO2, Serum [facility] total mmol/L normal Health System [Moles/volume] in Serum or Plasma Total Protein 6.7 mg/dl 6.3 - 8.2 Normal Total Protein [facility] mg/dl (applies to Health System non-numeric results) Glucose 632 mg/dL 65 - 105 Above upper Glucose, Serum [facility] [Mass/volume] in mg/dL panic Health System Serum or Plasma limits Result Reporting|Telephone|LASHONDA DOZIER| at 11:36 AMCalled to:LASHONDA DOZIERTech Name:TBReadback by:LASHONDA DOZIER 08/04/2014 / 11:35 AM Urea nitrogen 11 mg/dl 7 - 18 Normal (applies Blood Urea [facility] [Mass/volume] in mg/dl to non-numeric Nitrogen, Health S ystem Serum or Plasma results) Serum Creatinine 1.50 mg/dl 0.70 - Above high Creatinine, [facility] [Mass/volume] in 1.20 normal Serum Health System Serum or Plasma mg/dl Alkaline phosphatase 93 {IU/L} 38 - 126 Normal (applies Alkaline [facility] isoenzymes [Enzymatic IU/L to non-numeric Phosphatase, Health System activity/volume] in results) Serum Serum or Plasma by Heat stability Bilirubin.total 1.9 mg/dl 0.2 - 1.3 Above high Bilirubin, [facility] [Mass/volume] in mg/dl normal Serum Total Health Syst em Serum or Plasma Direct Bilirubin 0.8 mg/dl 0.0 - 0.4 Above high Direct [facility] mg/dl normal Bilirubin Health System Aspartate 143 {IU/L} 5 - 40 Above high Aspartate [facility] aminotransferase IU/L normal Transaminase, Health Sy stem [Enzymatic Serum activity/volume] in Serum or Plasma by With P-5'-P Albumin [Mass/volume] 2.7 3.9 - 5.0 Below low Albumin, Serum [facility] in Serum or Plasma {gm/dl} gm/dl normal Health Syst em I. Phosphorus 2.3 mg/dl 2.5 - 4.5 Below low I. Phosphorus [facility] mg/dl normal Health System Alanine 95 {IU/L} 7 - 56 Above high Alanine [facility] aminotransferase IU/L normal Aminotransfera Health S ystem [Enzymatic se, Serum activity/volume] in Serum or Plasma Calcium [Mass/volume] 6.6 mg/dl 8.4 - Below low Calcium, Total [facility] in Serum or Plasma 10.2 normal Serum Health Syst em mg/dl A/G Ratio 0.68 Normal (applies A/G Ratio [facility] to non-numeric Health System results) Urate [Mass/volume] 6.4 mg/dl 2.5 - 7.5 Normal (applies Uric Acid, [facility] in Serum or Plasma mg/dl to non-numeric Serum Health System results) Anion gap in Serum or 13.00 8.00 - Above high Anion Gap [facility] Plasma mmol/L 12.00 normal Health System mmol/L Glomerular filtration 35.44 Normal (applies GFR [facility] rate/1.73 sq to non-numeric Health Syste m M.predicted [Volume results) Rate/Area] in Serum or Plasma by Creatinine-based formula (CKD-EPI) eGFR will provide clinicians with a more accurate indicator of renal function then the serum creatinine. The eGFR is automa tically calculated from an empiric formula (endorsed by the National Kidney [employer] ion) which incorporates age, sex, and race.Clinicians may notice surprisingly low GFR's with serum creatinine valueswithin normal range- particularly in elderly wo men (with low muscle mass).In the hospital setting, the eGFR should add an element of safety in drug dosing, in assessing the risk of IV contrast administration, and in assessing vascular risk.The NKF staging system is as follows:Normal: eGFR >90 with no kidney markersStage 1: eGFR >90 with kidney markers*Stage 2: eGFR 60- 89Stage 3: eGFR 30-59Stage 4: eGFR 15-29Stage 5: eGFR <15 (usually requir ing dialysis)*Markers include: Proteinuria, Hematuria, abnormal imaging-studies, or other blood or urine test abnormalities ID Date Data Source [id number] 08/04/2014 06:00:00 AM EDT [facility] G[facility] System Name Value Range Interpretation Description Data Sup porting Code Source(s) Document(s ) Magnesium 2.9 1.7 - Above high normal Magnesium, [facility] [Mass/volume {mEq/L} 2.2 Serum Health System ] in Serum mEq/L or Plasma ID Date Data Source [id number] 08/04/2014 06:00:00 AM EDT [facility] System Name Value Range Interpretation Description Data Sup porting Code Source(s) Document(s ) Bacteria NO GROWTH Culture [facility] identified in Bacteria Blood Health Syst em Blood by Aer[facility] culture ID Date Data Source [id number] 08/03/2014 07:28:00 AM EDT [facility] System Name Value Range Interpretation Description Data Sup porting Code Source(s) Document(s ) Bacteria NO GROWTH Culture [facility] identified in Bacteria Blood Health Syst em Blood by Aerobe culture ID Date Data Source [id number] 08/03/2014 06:00:00 AM EDT [facility] System Name Value Range Interpretation Description Data Sup porting Code Source(s) Document(s ) Troponin I 0.59 0.00 - Above high Troponin I [facility] Quantitative ng/ml 0.04 normal Quantitative Health ng/ml System The Troponin I result is consistent with Severe Cardiac Ischemia. ID Date Data Source [id number] 08/03/2014 06:00:00 AM EDT [facility] System Name Value Range Interpretation Description Data Sup porting Code Source(s) Document(s ) Ammonia 34 ug/dl 9 - 33 Above high normal Ammonia, Serum [facility] [Mass/volum ug/dl Health System e] in Serum ID Date Data Source [id number] 08/03/2014 06:00:00 AM EDT [facility] System Name Value Range Interpretation Description Data Sup porting Code Source(s) Document(s ) Hepatitis 29.10 {Ratio} <1.0 Above high Hepatitis C [facility] C Ratio Ratio normal Ratio Health System Hepatitis DNR Test Performed Normal (applies Hepatitis B [facility] B Surface at: [facility] to non-numeric Surface [facility], One results) Antigen [place] [address] Alvaro Cuba M.D. Hepatitis Non Normal (applies Hepatitis B [facility] B Core ReactiveReference to non-numeric Core Health Antibody Range: Non Reactive results) Antibody IgM System IgM Hepatitis NonreactiveReferenc Normal (applies Hepatitis A [facility] A IgM e Range: to non-numeric IgM Antibody Health Antibody Nonreactive Test results) System Performed at: [facility], [address] [place] [id number] Alvaro Cuba M.D. Hepatitis Non Normal (applies Hepatitis B [facility] B Surface ReactiveReference to non-numeric Surface [facility] Antigen. Range: Non Reactive results) Antigen. System Hepatitis ReactiveReference Abnormal Hepatitis C [facility] C Viral Range: Non Reactive (applies to Viral Health Antibody After a non-numeric Antibody System positive Hepatitis results) C antibody test, an FDA-approved HCV ADILENE (also referred to as an "HCV RNA test") should be used to identify HCV infection. A sample with a high S/CO ratio will repeat as positive using a different antibody detection methodology 95% of the time or greater. (CDC MMWR No. RR-3,2002). Additional antibody testing is not recommended. Result Reporting|Telephone |Dr. Seth| 08/06/2014 at 4:32 PMCalled to:Dr.KolanuvadaTec bustos Name:RPReadback by:Dr. Seth 08/06/2014 / 4:31 PM ID Date Data Source [id number] 08/03/2014 06:00:00 AM [facility] System Name Value Range Interpretation Description Data Sup porting Code Source(s) Document(s ) Alpha 3.6 ng/mL <6.1 Normal (applies Alpha [facility] Fetoprotei ng/mL to non-numeric Fetoprotein, Health Syst em n, Tumor results) Tumor Marker Marker The use of AFP as a Tumor Marker in preg nant patients is not recommended. This test was performed using th e [place] chemiluminescent method. Values obtained from different a ssay methods cannot be used interchangeably. AFP levels, reg ardless of value, should not be interpreted as absolute evidence of the pres ence or absence of disease. Test Performed at: [facility], [place] [address] Alvaro Cuba M.D. ID Date Data Source [id number] 08/03/2014 06:00:00 AM [facility] System Name Value Range Interpretation Description Data Sup porting Code Source(s) Document(s ) Prothrombin 11.60 9.70 - Normal (applies Prothrombin [facility] time (PT) {seconds 11.80 to non-numeric time (PT) Health } seconds results) System INR in Blood 1.11 0.70 - Above high INR Result [facility] by Coagulation {Ratio} 1.10 normal Health assay Ratio System Normal = 0.7-1.1Therapeutic = 2.0-3.0Mec hanical Heart = 3.0-4.5 ID Date Data Source [id number] 08/03/2014 06:00:00 AM EDT [facility] System Name Value Range Interpretation Description Data Sup porting Code Source(s) Document(s ) Leukocytes 10.2 4.8 - Normal (applies WBC Count [facility] [#/volume] in {10^3_uL 10.8 to non-numeric Health Unspecified } 10^3 uL results) System specimen by Automated count Erythrocytes 3.54 3.80 - Below low normal RBC Count [facility] [#/volume] in {10^6_uL 5.20 Health Blood by } 10^6 uL System Automated count Hemoglobin 11.4 12.0 - Below low normal Hemoglobin [facility] [Mass/volume] in {gm/dL} 16.0 Health Blood gm/dL System Hematocrit 32.2 % 36.0 - Below low normal Hematocrit [facility] [Volume 46.0 % Health Fraction] of System Blood Erythrocyte mean 91.0 fl 80.0 - Normal (applies MCV [facility] corpuscular 100.0 to non-numeric Health volume [Entitic fl results) System volume] by Automated count Erythrocyte mean 32.2 pg 26.0 - Normal (applies MCH [facility] corpuscular 34.0 pg to non-numeric Health hemoglobin results) System [Entitic mass] by Automated count Erythrocyte mean 35.4 33.0 - Normal (applies MCHC [facility] corpuscular {gm/dL} 37.0 to non-numeric Health hemoglobin gm/dL results) System concentration [Mass/volume] by Automated count Erythrocyte 13.9 % 11.5 - Normal (applies RDW-CV [facility] distribution 14.5 % to non-numeric Health width [Entitic results) System volume] by Automated count Platelets 134 130 - Normal (applies Platelet [facility] [#/volume] in {10^3_uL 400 to non-numeric Count Health Plasma by } 10^3 uL results) System Automated count Platelet mean 11.3 fl 7.4 - Above high MPV [facility] volume [Entitic 10.4 fl normal Health volume] in Blood System by Automated count Monocytes 0.5 0.3 - Normal (applies Monocyte # [facility] [#/volume] in {10^3_uL 0.9 to non-numeric Health Blood by Manual } 10^3 uL results) System count Eosinophils 0.00 0.05 - Below low normal Eosinophil # [facility] [#/volume] in {10^3_uL 0.30 Health Blood } 10^3 uL System Neutrophils 7.3 2.0 - Normal (applies Neutrophil # [facility] [#/volume] in {10^3_uL 8.1 to non-numeric Health Body fluid } 10^3 uL results) System Basophils 0.00 0.00 - Normal (applies Basophil # [facility] [#/volume] in {10^3_uL 0.10 to non-numeric Health Blood by } 10^3 uL results) System Automated count Lymphocyte # 2.4 1.0 - Normal (applies Lymphocyte # [facility] {10^3_uL 5.5 to non-numeric Health } 10^3 uL results) System Neutrophils/100 71.4 % 0.0 - Normal (applies Neutrophil % Ubaldo grace leukocytes in 120.0 % to non-numeric Health Blood by results) System Automated count Monocytes/100 4.7 % 6.0 - Below low normal Monocyte % [facility] leukocytes in 9.0 % Health Blood System Eosinophils/100 0.0 % 1.0 - Below low normal Eosinophil % [facility] leukocytes in 3.0 % Health Unspecified System specimen Basophils/100 0.0 % 0.0 - Normal (applies Basophil % [facility] leukocytes in 1.0 % to non-numeric Health Unspecified results) System specimen by Manual count Lymphocytes 23.9 % 21.0 - Normal (applies Lymphocyte % [facility] [#/volume] in 51.0 % to non-numeric Health Blood by results) System Automated count ID Date Data Source [id number] 08/03/2014 06:00:00 AM [facility] System Name Value Range Interpretation Description Data Sup porting Code Source(s) Document(s ) Sodium 137 137 - Normal (applies Sodium, Serum [facility] [Moles/volume] in mmol/L 145 to non-numeric Health Serum or Plasma mmol/L results) System Potassium 3.1 3.6 - Below low normal Potassium, [facility] [Mass/volume] in mmol/L 5.0 Serum Health Serum or Plasma mmol/L System Chloride 101 98 - Normal (applies Chloride, [facility] [Moles/volume] in mmol/L 107 to non-numeric Serum Health Serum or Plasma mmol/L results) System Carbon dioxide, 22.0 22.0 - Normal (applies CO2, Serum [facility] total mmol/L 30.0 to non-numeric Health [Moles/volume] in mmol/L results) System Serum or Plasma Total Protein 8.3 6.3 - Above high Total Protein [facility] mg/dl 8.2 normal Health mg/dl System Glucose 111 65 - Above high Glucose, [facility] [Mass/volume] in mg/dL 105 normal Serum Health Serum or Plasma mg/dL System Urea nitrogen 13 7 - 18 Normal (applies Blood Urea [facility] [Mass/volume] in mg/dl mg/dl to non-numeric Nitrogen, Health Serum or Plasma results) Serum System Creatinine 1.30 0.70 - Above high Creatinine, [facility] [Mass/volume] in mg/dl 1.20 normal Serum Health Serum or Plasma mg/dl System Alkaline 115 38 - Normal (applies Alkaline [facility] phosphatase {IU/L} 126 to non-numeric Phosphatase, Health isoenzymes IU/L results) Serum System [Enzymatic activity/volume] in Serum or Plasma by Heat stability Bilirubin.total 1.8 0.2 - Above high Bilirubin, [facility] [Mass/volume] in mg/dl 1.3 normal Serum Total Health Serum or Plasma mg/dl System Direct Bilirubin 0.9 0.0 - Above high Direct [facility] mg/dl 0.4 normal Bilirubin Health mg/dl System Aspartate 321 5 - 40 Above high Aspartate [facility] aminotransferase {IU/L} IU/L normal Transaminase, Health [Enzymatic Serum System activity/volume] in Serum or Plasma by With P-5'-P Albumin 3.3 3.9 - Below low normal Albumin, [facility] [Mass/volume] in {gm/dl} 5.0 Serum Health Serum or Plasma gm/dl System I. Phosphorus 1.6 2.5 - Below low normal I. Phosphorus [facility] mg/dl 4.5 Health mg/dl System Alanine 172 7 - 56 Above high Alanine [facility] aminotransferase {IU/L} IU/L normal Aminotransfer Health [Enzymatic ase, Serum System activity/volume] in Serum or Plasma Calcium 7.8 8.4 - Below low normal Calcium, [facility] [Mass/volume] in mg/dl 10.2 Total Serum Health Serum or Plasma mg/dl System A/G Ratio 0.66 Normal (applies A/G Ratio [facility] to non-numeric Health results) System Urate 8.3 2.5 - Above high Uric Acid, [facility] [Mass/volume] in mg/dl 7.5 normal Serum Health Serum or Plasma mg/dl System Anion gap in Serum 14.00 8.00 - Above high Anion Gap [facility] or Plasma mmol/L 12.00 normal Health mmol/L System Glomerular 41.80 Normal (applies GFR [facility] filtration to non-numeric Health rate/1.73 sq results) System M.predicted [Volume Rate/Area] in Serum or Plasma by Creatinine-based formula (CKD-EPI) eGFR will provide clinicians with a more accurate indicator of renal function then the serum creatinine. The eGFR is automa tically calculated from an empiric formula (endorsed by the [employer] ion) which incorporates age, sex, and race.Clinicians may notice surprisingly low GFR's with serum creatinine valueswithin normal range- particularly in elderly wo men (with low muscle mass).In the hospital setting, the eGFR should add an element of safety in drug dosing, in assessing the risk of IV contrast administration, and in assessing vascular risk.The NKF staging system is as follows:Normal: eGFR >90 with no kidney markersStage 1: eGFR >90 with kidney markers*Stage 2: eGFR 60- 89Stage 3: eGFR 30-59Stage 4: eGFR 15-29Stage 5: eGFR <15 (usually requir ing dialysis)*Markers include: Proteinuria, Hematuria, abnormal imaging-studies, or other blood or urine test abnormalities ID Date Data Source [id number] 08/03/2014 06:00:00 AM EDT [facility] System Name Value Range Interpretation Description Data Sup porting Code Source(s) Document(s ) Magnesium 1.6 1.7 - Below low normal Magnesium, [facility] [Mass/volume {mEq/L} 2.2 Serum Health System ] in Serum mEq/L or Plasma ID Date Data Source [id number] 08/03/2014 06:00:00 AM EDT [facility] System Name Value Range Interpretation Description Data Sup porting Code Source(s) Document(s ) Lactic 2.74 0.70 - Above high normal Lactic Acid, [facility] Acid, {mEq/L} 2.10 Plasma *[facility] Plasma mEq/L KI ONLY* *[place] KI ONLY* ID Date Data Source [id number] 08/02/2014 08:55:00 PM EDT [facility] System Name Value Range Interpretation Description Data Sup porting Code Source(s) Document(s ) Troponin I 0.81 0.00 - Above high Troponin I [facility] Quantitative ng/ml 0.04 normal Quantitative Health ng/ml System The Troponin I result is consistent with Severe Cardiac Ischemia. ID Date Data Source [id number] 08/02/2014 08:55:00 PM EDT [facility] System Name Value Range Interpretation Description Data Sup porting Code Source(s) Document(s ) Lactic 4.58 0.70 - Above high normal Lactic Acid, [facility] Acid, {mEq/L} 2.10 Plasma *[facility] Plasma mEq/L KI ONLY* *[facility] KI ONLY* ID Date Data Source [id number] 08/02/2014 02:02:00 PM EDT [facility] System Name Value Range Interpretation Description Data Sup porting Code Source(s) Document(s ) Troponin I 0.80 0.00 - Above high Troponin I [facility] Quantitative ng/ml 0.04 normal Quantitative Health ng/ml System The Troponin I result is consistent with Severe Cardiac Ischemia. ID Date Data Source [id number] 08/02/2014 02:02:00 PM EDT [facility] System Name Value Range Interpretation Description Data Sup porting Code Source(s) Document(s ) Lactic 4.62 0.70 - Above high normal Lactic Acid, [facility] Acid, {mEq/L} 2.10 Plasma *[facility] Plasma mEq/L KI ONLY* *[facility] KI ONLY* ID Date Data Source [id number] 08/02/2014 12:59:00 PM EDT [facility] System Name Value Range Interpretation Description Data Sup porting Code Source(s) Document(s ) Sodium 132 137 - Below low normal Sodium, Serum [facility] [Moles/volum mmol/L 145 Health System e] in Serum mmol/L or Plasma Potassium 3.8 3.6 - Normal (applies Potassium, [facility] [Mass/volume mmol/L 5.0 to non-numeric Serum Health Syste m ] in Serum mmol/L results) or Plasma hemolysis present Chloride 98 mmol/L 98 - 107 Normal (applies Chloride, [facility] [Moles/volume] in mmol/L to non-numeric Serum Health System Serum or Plasma results) Carbon dioxide, 17.0 22.0 - Below low CO2, Serum [facility] total [Moles/volume] mmol/L 30.0 normal Health Sy stem in Serum or Plasma mmol/L Total Protein 8.0 mg/dl 6.3 - 8.2 Normal (applies Total Protein [facility] mg/dl to non-numeric Health System results) Glucose 280 mg/dL 65 - 105 Above high Glucose, Serum [facility] [Mass/volume] in mg/dL normal Health System Serum or Plasma Urea nitrogen 20 mg/dl 7 - 18 Above high Blood Urea [facility] [Mass/volume] in mg/dl normal Nitrogen, Health System Serum or Plasma Serum Creatinine 1.50 mg/dl 0.70 - Above high Creatinine, [facility] [Mass/volume] in 1.20 mg/dl normal Serum Health Syste m Serum or Plasma Alkaline phosphatase 118 {IU/L} 38 - 126 Normal (applies Alkaline [facility] isoenzymes IU/L to non-numeric Phosphatase, Health Syst em [Enzymatic results) Serum activity/volume] in Serum or Plasma by Heat stability Bilirubin.total 1.2 mg/dl 0.2 - 1.3 Normal (applies Bilirubin, [facility] [Mass/volume] in mg/dl to non-numeric Serum Total Health System Serum or Plasma results) Direct Bilirubin 0.5 mg/dl 0.0 - 0.4 Above high Direct [facility] mg/dl normal Bilirubin Health System Aspartate 418 {IU/L} 5 - 40 Above high Aspartate [facility] aminotransferase IU/L normal Transaminase, Health Sy stem [Enzymatic Serum activity/volume] in Serum or Plasma by With P-5'-P Albumin 3.2 3.9 - 5.0 Below low Albumin, Serum [facility] [Mass/volume] in {gm/dl} gm/dl normal Health System Serum or Plasma I. Phosphorus 1.7 mg/dl 2.5 - 4.5 Below low I. Phosphorus [facility] mg/dl normal Health System Alanine 195 {IU/L} 7 - 56 Above high Alanine [facility] aminotransferase IU/L normal Aminotransfera Health S ystem [Enzymatic se, Serum activity/volume] in Serum or Plasma Calcium 7.3 mg/dl 8.4 - 10.2 Below low Calcium, Total [facility] [Mass/volume] in mg/dl normal Serum Health System Serum or Plasma A/G Ratio 0.67 Normal (applies A/G Ratio [facility] to non-numeric Health System results) Urate [Mass/volume] 9.8 mg/dl 2.5 - 7.5 Above high Uric Acid, [facility] in Serum or Plasma mg/dl normal Serum Health Syst em Anion gap in Serum 17.00 8.00 - Above high Anion Gap [facility] or Plasma mmol/L 12.00 normal Health System mmol/L Glomerular 35.44 Normal (applies GFR [facility] filtration rate/1.73 to non-numeric Heal th System sq M.predicted results) [Volume Rate/Area] in Serum or Plasma by Creatinine-based formula (CKD-EPI) eGFR will provide clinicians with a more accurate indicator of renal function then the serum creatinine. The eGFR is automa tically calculated from an empiric formula (endorsed by the [employer] ion) which incorporates age, sex, and race.Clinicians may notice surprisingly low GFR's with serum creatinine valueswithin normal range- particularly in elderly wo men (with low muscle mass).In the hospital setting, the eGFR should add an element of safety in drug dosing, in assessing the risk of IV contrast administration, and in assessing vascular risk.The NKF staging system is as follows:Normal: eGFR >90 with no kidney markersStage 1: eGFR >90 with kidney markers*Stage 2: eGFR 60- 89Stage 3: eGFR 30-59Stage 4: eGFR 15-29Stage 5: eGFR <15 (usually requir ing dialysis)*Markers include: Proteinuria, Hematuria, abnormal imaging-studies, or other blood or urine test abnormalities ID Date Data Source [id number] 08/02/2014 12:59:00 PM EDT [facility] Name Value Range Interpretation Description Data Sup porting Code Source(s) Document(s ) Triglyceride 270 35 - 135 Above high Triglycerides [facility] [Mass/volume] mg/dl mg/dl normal , Serum Health in Serum or System Plasma Optimal = < 100 mg/dLBoderline High = 15 0 - 199 mg/dLHigh = 200 - 499 mg/dLVery High = > 500 mg/dL Cholesterol 106 mg/dl *.* mg/dl Normal (applies Cholesterol, [facility] [Mass/volume] in to non-numeric Serum Health S ystem Serum or Plasma results) <200 mg/dL = [id number] - 239 md/dL = Borderline>240 mg/dL = High Risk Cholesterol in HDL 41.0 mg/dL 32.0 - Normal (applies HDL Choleste rol, [facility] [Mass/volume] in 75.0 mg/dL to non-numeric Serum Health System Serum or Plasma results) Cholesterol in LDL 11 mg/dL Normal (applies Low Density [facility] [Mass/volume] in to non-numeric Lipoprotein, Healt h System Serum or Plasma results) Calculated OPTIMAL: LESS THAN 100 mg/dLNEAR OPTIMAL : 100 - 129 mg/dLBODERLINE HIGH: 130 - 150 mg/dL Cholesterol in VLDL 54 Normal (applies to VLDL, Serum [facility] [Mass/volume] in non-numeric System Serum or Plasma results) CHD Risk 2.59 2.40 - Normal (applies to CHD Risk [facility] 5.30 non-numeric System results) ID Date Data Source [id number] 08/02/2014 12:06:00 PM EDT [facility] System Name Value Range Interpretation Description Data Sup porting Code Source(s) Document(s ) Magnesium 1.0 1.7 - Below low normal Magnesium, [facility] [Mass/volume {mEq/L} 2.2 Serum Health System ] in Serum mEq/L or Plasma ID Date Data Source [id number] 08/02/2014 10:24:00 AM EDT [facility] Name Value Range Interpretation Description Data Sup porting Code Source(s) Document(s ) pH 7.427 7.380 - Normal (applies pH [facility] {pH_unit 7.460 pH to non-numeric Health System s} units results) Carbon 31.4 32.0 - Below low normal pCO2, Arterial [facility] dioxide {mm_Hg} 46.0 mm Health System [Partial Hg pressure] in Arterial blood Oxygen 21.4 74.0 - Below lower panic pO2, Aterial [facility] [Partial {mm_Hg} 108.0 mm limits Health System pressure] Hg in Arterial blood Result Reporting|Telephone|omari| 08/02 at 2:42 PMCalled to:Rodger Name:Barbara by:omari 08/02/2014 / 2:42 PM Bicarbonate 20.2 mmol/L 20.0 - Normal (applies HCO3 [facility] [Moles/volume] in 26.0 to non-numeric Health System Venous blood mmol/L results) TCO2 21.2 mmol/L 24.0 - Below low TCO2 [facility] 30.0 normal Health System mmol/L O2 Saturation 31.1 % 92.0 - Below low O2 Saturation [facility] 96.0 % normal Health System Ionized Calcium 1.05 mmol/L Normal (applies Ionized [facility] to non-numeric Calcium Health System results) Base Excess. -3.3 mmol/L -3.0 - 3.0 Below low Base Excess. [facility] mmol/L normal Health System ID Date Data Source [id number] 08/02/2014 10:12:00 AM EDT [facility] Name Value Range Interpretation Description Data Sup porting Code Source(s) Document(s ) Deprecated Micro Result Normal (applies Aerobic [facility] Bacteria to non-numeric Culture, Urine Health identified in results) System Urine by Aerobe culture XXX Escherichia Organism [facility] microorganism coli Health serotype System [Identifier] in Isolate by Agglutination [place] Count >50,000 - [place] Count [facility] <100,000 C Health IDENTIFICATIO System N AND SUSCEPTIBILIT Y PERFORMED BY MICROSCAN SYSTEM Amikacin <=16 - Amikacin [facility] [Susceptibili Sensitive Health ty] System Ampicillin >16 Resistant - Ampicillin [facility] [Susceptibili Health ty] System Ampicillin+Nielsen <=8/4 - [facility] lbactam Sensitive Ampicillin/Sulb Health [Susceptibili actam System ty] Aztreonam <=8 Sensitive - Aztreonam [facility] [Susceptibili Health ty] System Cefazolin <=8 Sensitive - cefazolin [facility] [Susceptibili Health ty] System Cefoxitin <=8 Sensitive - Cefoxitin [facility] [Mass/volume] Health in System Unspecified specimen Ceftriaxone <=8 Sensitive - Ceftriaxone [facility] [Susceptibili Health ty] System Ciprofloxacin >2 Resistant - [facility] [Susceptibili Ciprofloxacin Health ty] System Ertapenem <=1 Sensitive - Ertapenem [facility] [Susceptibili Health ty] by System Minimum inhibitory concentration (RADHA) Gentamicin >8 Resistant - Gentamicin [facility] [Susceptibili Health ty] System Nitrofurantoi <=32 - [facility] n Sensitive Nitrofurantoin Health [Mass/volume] System in Serum or Plasma Piperacillin+ <=16 - [facility] Tazobactam Sensitive Piperacillin/Ta Health [Susceptibili zobactam System ty] Trimethoprim+ <=2/38 - [facility] Sulfamethoxaz Sensitive Trimethoprim/Nielsen Health ole lfamethoxazole System [Susceptibili ty] ID Date Data Source [id number] 08/02/2014 09:50:00 AM EDT [facility] Name Value Range Interpretation Description Data Sup porting Code Source(s) Document(s ) Alcohol non Normal (applies Alcohol Ethyl, [facility] Ethyl, detected to non-numeric Blood Health System Blood None results) Detected ID Date Data Source [id number] 08/02/2014 09:39:00 AM EDT [facility] Name Value Range Interpretation Description Data Sup porting Code Source(s) Document(s ) Amphetamine Negative Negative Normal (applies Amphetamine [facility] [Mass/volume] ng/ml to non-numeric Level, Urine Health in Urine results) System Cut-off = 1000 ng/mL Barbiturates Negative Negative Normal (applies Barbiturate [facility] [Mass/volume] in ng/ml to non-numeric Screen, Urine [facility] Urine by Screen results) method Cut-off = 200 ng/mL Benzodiazepines Positive Negative Abnormal Benzodiazepines, [facility] [Mass/volume] in ng/mL (applies to Urine Health Urine non-numeric System results) Cut-off = 200 ng/mL Cocaine Negative Negative Normal (applies Cocaine [facility] metabolites.other ng/ml to non-numeric Metabolite Health System [Mass/volume] in results) Screen, Urine Urine Cut-off = 300 ng/mL Methadone Positive Negative Abnormal (applies Methadone [facility] [Mass/volume] in to non-numeric Level, Urine [facility] System Urine results) Cut-off = 300 ng/mL Opiate 300, Negative Negative ng/ml Normal (applies to Opiate 300, [facility] Urine non-numeric Urine Health System results) Cut-off = 300 ng/mL Phencyclidine Negative Negative Normal (applies Phencyclidine, [facility] [Mass/volume] in ng/ml to non-numeric Urine Health S ystem Urine results) Cut-off = 25 ng/mL THC Negative Negative ng/mL Normal (applies to THC [facility] non-numeric results) Cutt-off = 50These results are for medic al treatment only. The positive findings are unconfirmed. Request confirmatory/quanti tative test if needed. ID Date Data Source [id number] 08/02/2014 09:39:00 AM EDT [facility] Name Value Range Interpretation Description Data Sup porting Code Source(s) Document(s ) Acetone, Negative Negative Normal (applies Acetone, [facility] Serum to non-numeric Serum Health Qualitative results) Qualitative System ID Date Data Source [id number] 08/02/2014 09:30:00 AM EDT [facility] Name Value Range Interpretation Description Data Sup porting Code Source(s) Document(s ) Type B Normal (applies Type [facility] to non-numeric Health System results) D Ab [Titer] Positive Normal (applies Rh [facility] in Serum or to non-numeric Health System Plasma results) Antibody Negative Normal (applies Antibody [facility] Screen to non-numeric Screen Health System results) ID Date Data Source [id number] 08/02/2014 09:30:00 AM EDT [facility] Name Value Range Interpretation Description Data Sup porting Code Source(s) Document(s ) Color YELLOW Yellow Normal (applies Color [facility] to non-numeric Health results) System Appearance of CLOUDY Clear Normal (applies Urine [facility] Urine to non-numeric Appearance Health results) System Specific 1.020 Normal (applies Urine Specific [facility] gravity of to non-numeric [facility] Urine results) System pH.. 6.0 4.6 - 8.0 Normal (applies pH.. [facility] {pH_units} pH units to non-numeric Health results) System Glucose, UA 250 mg/dl < 50 Normal (applies Glucose, UA [facility] mg/dl to non-numeric Health results) System Protein 30 mg/dl < 30 Normal (applies Protein [facility] [Mass/volume] mg/dl to non-numeric Health in Serum or results) System Plasma Bilirubin NEGATIVE Negative Normal (applies Bilirubin [facility] Urine Sm to Lg to non-numeric Urine Health results) System Urobilinogen 0.2 mg/dL Normal (applies Urobilinogen [facility] [Mass/volume] to non-numeric UA Health in Urine results) System Ketones NEGATIVE Negative Normal (applies Ketones UA [facility] [Mass/volume] Tr to Lg to non-numeric Health in Urine results) System Nitrate+Nitrit NEGATIVE Negative Normal (applies Nitrite [facility] Neg/Pos to non-numeric Health [Mass/volume] results) System in Unspecified specimen Leukocyte MODERATE Negative Abnormal Leukocyte [facility] esterase Tr to Lg (applies to Esterase Health [Units/volume] non-numeric Concentration System in Urine results) Leukocytes 2-4 0 - 2 Normal (applies White Blood [facility] [#/volume] in /HPF to non-numeric Cells Health Unspecified results) System specimen by Automated count Red Blood 0-1 0 - 1 Normal (applies Red Blood [facility] Cells /HPF to non-numeric Cells Health results) System Bacteria NUMEROUSE 0 - 5 Normal (applies Bacteria [facility] [Presence] in /HPF to non-numeric Health Unspecified results) System specimen Urine Blood SMALL Normal (applies Urine Blood [facility] to non-numeric Health results) System ID Date Data Source [id number] 08/02/2014 09:30:00 AM EDT [facility] Name Value Range Interpretation Description Data Sup porting Code Source(s) Document(s ) aPTT in Blood 38.0 23.9 - Above high Activated [facility] by {Second 30.6 normal Partial Health Coagulation s} Seconds Thromboplastin System assay Time ID Date Data Source [id number] 08/02/2014 09:30:00 AM EDT [facility] Name Value Range Interpretation Description Data Sup porting Code Source(s) Document(s ) Prothrombin 14.90 9.70 - Above high Prothrombin [facility] time (PT) {seconds 11.80 normal time (PT) Health } seconds System INR in Blood 1.41 0.70 - Above high INR Result [facility] by Coagulation {Ratio} 1.10 normal Health assay Ratio System Normal = 0.7-1.1Therapeutic = 2.0-3.0Mec hanical Heart = 3.0-4.5 ID Date Data Source [id number] 08/02/2014 09:30:00 AM EDT [facility] System Name Value Range Interpretation Description Data Sup porting Code Source(s) Document(s ) Leukocytes 10.4 4.8 - Normal (applies WBC Count [facility] [#/volume] in {10^3_uL 10.8 to non-numeric Health Unspecified } 10^3 uL results) System specimen by Automated count Erythrocytes 3.81 3.80 - Normal (applies RBC Count [facility] [#/volume] in {10^6_uL 5.20 to non-numeric Health Blood by } 10^6 uL results) System Automated count Hemoglobin 12.4 12.0 - Normal (applies Hemoglobin [facility] [Mass/volume] in {gm/dL} 16.0 to non-numeric Health Blood gm/dL results) System Hematocrit 36.3 % 36.0 - Normal (applies Hematocrit [facility] [Volume 46.0 % to non-numeric Health Fraction] of results) System Blood Erythrocyte mean 95.3 fl 80.0 - Normal (applies MCV [facility] corpuscular 100.0 to non-numeric Health volume [Entitic fl results) System volume] by Automated count Erythrocyte mean 32.5 pg 26.0 - Normal (applies MCH [facility] corpuscular 34.0 pg to non-numeric Health hemoglobin results) System [Entitic mass] by Automated count Erythrocyte mean 34.2 33.0 - Normal (applies MCHC [facility] corpuscular {gm/dL} 37.0 to non-numeric Health hemoglobin gm/dL results) System concentration [Mass/volume] by Automated count Erythrocyte 14.0 % 11.5 - Normal (applies RDW-CV [facility] distribution 14.5 % to non-numeric Health width [Entitic results) System volume] by Automated count Platelets 188 130 - Normal (applies Platelet [facility] [#/volume] in {10^3_uL 400 to non-numeric Count Health Plasma by } 10^3 uL results) System Automated count Platelet mean 10.7 fl 7.4 - Above high MPV [facility] volume [Entitic 10.4 fl normal Health volume] in Blood System by Automated count Monocytes 0.2 0.3 - Below low normal Monocyte # [facility] [#/volume] in {10^3_uL 0.9 Health Blood by Manual } 10^3 uL System count Eosinophils 0.01 0.05 - Below low normal Eosinophil # [facility] [#/volume] in {10^3_uL 0.30 Health Blood } 10^3 uL System Neutrophils 5.9 2.0 - Normal (applies Neutrophil # [facility] [#/volume] in {10^3_uL 8.1 to non-numeric Health Body fluid } 10^3 uL results) System Basophils 0.01 0.00 - Normal (applies Basophil # [facility] [#/volume] in {10^3_uL 0.10 to non-numeric Health Blood by } 10^3 uL results) System Automated count Lymphocyte # 4.3 1.0 - Normal (applies Lymphocyte # [facility] {10^3_uL 5.5 to non-numeric Health } 10^3 uL results) System Neutrophils/100 56.5 % 0.0 - Normal (applies Neutrophil % [facility] grace leukocytes in 120.0 % to non-numeric Health Blood by results) System Automated count Monocytes/100 2.3 % 6.0 - Below low normal Monocyte % [facility] leukocytes in 9.0 % Health Blood System Eosinophils/100 0.1 % 1.0 - Below low normal Eosinophil % [facility] leukocytes in 3.0 % Health Unspecified System specimen Basophils/100 0.1 % 0.0 - Normal (applies Basophil % [facility] leukocytes in 1.0 % to non-numeric Health Unspecified results) System specimen by Manual count Lymphocytes 41.0 % 21.0 - Normal (applies Lymphocyte % [facility] [#/volume] in 51.0 % to non-numeric Health Blood by results) System Automated count ID Date Data Source [id number] 08/02/2014 09:30:00 AM EDT [facility] System Name Value Range Interpretation Description Data Sup porting Code Source(s) Document(s ) Sodium 133 137 - Below low normal Sodium, Serum [facility] [Moles/volum mmol/L 145 Health System e] in Serum mmol/L or Plasma Potassium 3.5 3.6 - Below low normal Potassium, [facility] [Mass/volume mmol/L 5.0 Serum Health System ] in Serum mmol/L or Plasma Chloride 95 98 - 107 Below low normal Chloride, [facility] [Moles/volum mmol/L mmol/L Serum Health System e] in Serum or Plasma Carbon 7.0 22.0 - Below lower panic CO2, Serum [facility] dioxide, mmol/L 30.0 limits Health System total mmol/L [Moles/volum e] in Serum or Plasma Result Reporting|Telephone|DR COTA| 2014 at 11:05 AMCalled to:Jeovany Name:Barbara by:DEEPAK 08/02/2014 / 11:04 AM Total Protein 9.2 mg/dl 6.3 - 8.2 Above high Total Protein [facility] mg/dl normal Health System Glucose [Mass/volume] 323 mg/dL 65 - 105 Above high Glucose, Serum [facility] in Serum or Plasma mg/dL normal Health Syst em Urea nitrogen 20 mg/dl 7 - 18 Above high Blood Urea [facility] [Mass/volume] in Serum mg/dl normal Nitrogen, Serum H ealth System or Plasma Creatinine 1.70 mg/dl 0.70 - Above high Creatinine, [facility] [Mass/volume] in Serum 1.20 mg/dl normal Serum Health System or Plasma Alkaline phosphatase 162 {IU/L} 38 - 126 Above high Alkaline [facility] isoenzymes [Enzymatic IU/L normal Phosphatase, Healt h System activity/volume] in Serum Serum or Plasma by Heat stability Bilirubin.total 1.2 mg/dl 0.2 - 1.3 Normal Bilirubin, [facility] [Mass/volume] in Serum mg/dl (applies to Serum Total Hea lth System or Plasma non-numeric results) Direct Bilirubin 0.7 mg/dl 0.0 - 0.4 Above high Direct [facility] mg/dl normal Bilirubin Health System Aspartate 506 {IU/L} 5 - 40 Above high Aspartate [facility] aminotransferase IU/L normal Transaminase, [facility] Sy [facility] [Enzymatic Serum activity/volume] in Serum or Plasma by With P-5'-P Albumin [Mass/volume] 3.7 3.9 - 5.0 Below low Albumin, Serum [facility] in Serum or Plasma {gm/dl} gm/dl normal [facility] Syst em I. Phosphorus 5.3 mg/dl 2.5 - 4.5 Above high I. Phosphorus [facility] mg/dl normal [facility] Alanine 229 {IU/L} 7 - 56 Above high Alanine [facility] aminotransferase IU/L normal [facility]otransferas [facility] [Enzymatic e, Serum activity/volume] in Serum or Plasma Calcium [Mass/volume] 8.2 mg/dl 8.4 - 10.2 Below low Calcium, Total [facility] in Serum or Plasma mg/dl normal Serum [facility] A/G Ratio 0.67 Normal A/G Ratio [facility] (applies to Health System non-numeric results) Urate [Mass/volume] in 8.1 mg/dl 2.5 - 7.5 Above high Uric Acid, [facility] Serum or Plasma mg/dl normal Serum Health System Anion gap in Serum or 31.00 8.00 - Above high Anion Gap [facility] Plasma mmol/L 12.00 normal Health System mmol/L Glomerular filtration 30.67 Normal GFR [facility] rate/1.73 sq (applies to Health System M.predicted [Volume non-numeric Rate/Area] in Serum or results) Plasma by Creatinine-based formula (CKD-EPI) eGFR will provide clinicians with a more accurate indicator of renal function then the serum creatinine. The eGFR is automa tically calculated from an empiric formula (endorsed by the [employer] ion) which incorporates age, sex, and race.Clinicians may notice surprisingly low GFR's with serum creatinine valueswithin normal range- particularly in elderly wo men (with low muscle mass).In the hospital setting, the eGFR should add an element of safety in drug dosing, in assessing the risk of IV contrast administration, and in assessing vascular risk.The NKF staging system is as follows:Normal: eGFR >90 with no kidney markersStage 1: eGFR >90 with kidney markers*Stage 2: eGFR 60- 89Stage 3: eGFR 30-59Stage 4: eGFR 15-29Stage 5: eGFR <15 (usually requir ing dialysis)*Markers include: Proteinuria, Hematuria, abnormal imaging-studies, or other blood or urine test abnormalities ID Date Data Source [id number] 08/02/2014 09:30:00 AM EDT [facility] Name Value Range Interpretation Description Data Sup porting Code Source(s) Document(s ) Triglyceride 514 35 - 135 Above high Triglycerides [facility] [Mass/volume] mg/dl mg/dl normal , Serum Health in Serum or System Plasma Optimal = < 100 mg/dLBoderline High = 15 0 - 199 mg/dLHigh = 200 - 499 mg/dLVery High = > 500 mg/dL Cholesterol 124 mg/dl *.* mg/dl Normal (applies Cholesterol, [facility] [Mass/volume] in to non-numeric Serum [facility] S ystem Serum or Plasma results) <200 mg/dL = [id number] - 239 md/dL = Borderline>240 mg/dL = High Risk Cholesterol in HDL 56.0 mg/dL 32.0 - Normal (applies HDL Choleste rol, [facility] [Mass/volume] in 75.0 mg/dL to non-numeric Serum Health System Serum or Plasma results) Cholesterol in LDL -34.8 Normal (applies Low Density [facility] [Mass/volume] in mg/dL to non-numeric Lipoprotein, [facility]alt [facility] Serum or Plasma results) Calculated OPTIMAL: LESS THAN 100 mg/dLNEAR OPTIMAL : 100 - 129 mg/dLBODERLINE HIGH: 130 - 150 mg/dL Cholesterol in VLDL 102.8 Normal (applies to VLDL, Serum [facility] [Mass/volume] in non-numeric System Serum or Plasma results) CHD Risk 2.21 2.40 - Below low normal CHD Risk [facility] 5.30 System ID Date Data Source [id number] 05/23/2014 06:00:00 AM EDT [facility] Name Value Range Interpretation Description Data Sup porting Code Source(s) Document(s ) Leukocytes 6.5 10 4.8 - Normal (applies WBC Count [facility] [#/volume] in 10.8 10 to non-numeric Health Unspecified results) System specimen by Automated count Erythrocytes 3.46 10 3.80 - Below low normal RBC Count [facility] [#/volume] in 5.20 10 Health Blood by System Automated count Hemoglobin 11.1 12.0 - Below low normal Hemoglobin [facility] [Mass/volume] in {gm/dL} 16.0 Health Blood gm/dL System Hematocrit 32.5 % 36.0 - Below low normal Hematocrit [facility] [Volume 46.0 % Health Fraction] of System Blood Erythrocyte mean 93.9 fl 80.0 - Normal (applies MCV [facility] corpuscular 100.0 to non-numeric Health volume [Entitic fl results) System volume] by Automated count Erythrocyte mean 32.1 pg 26.0 - Normal (applies MCH [facility] corpuscular 34.0 pg to non-numeric Health hemoglobin results) System [Entitic mass] by Automated count Erythrocyte mean 34.2 33.0 - Normal (applies MCHC [facility] corpuscular {gm/dL} 37.0 to non-numeric Health hemoglobin gm/dL results) System concentration [Mass/volume] by Automated count Erythrocyte 12.8 % 11.5 - Normal (applies RDW-CV [facility] distribution 14.5 % to non-numeric Health width [Entitic results) System volume] by Automated count Platelets 154 10 130 - Normal (applies Platelet [facility] [#/volume] in 400 10 to non-numeric Count Health Plasma by results) System Automated count Platelet mean 10.7 fl 7.4 - Above high MPV [facility] volume [Entitic 10.4 fl normal Health volume] in Blood System by Automated count Monocytes 0.4 10 0.3 - Normal (applies Monocyte # [facility] [#/volume] in 0.9 10 to non-numeric Health Blood by Manual results) System count Eosinophils 0.03 10 0.05 - Below low normal Eosinophil # [facility] [#/volume] in 0.30 10 Health Blood System Neutrophils 3.9 10 2.0 - Normal (applies Neutrophil # [facility] [#/volume] in 8.1 10 to non-numeric Health Body fluid results) System Basophils 0.01 10 0.00 - Normal (applies Basophil # [facility] [#/volume] in 0.10 10 to non-numeric Health Blood by results) System Automated count Lymphocyte # 2.2 10 1.0 - Normal (applies Lymphocyte # [facility] 5.5 10 to non-numeric Health results) System Neutrophils/100 59.2 % 0.0 - Normal (applies Neutrophil % Ubaldo grace leukocytes in 120.0 % to non-numeric Health Blood by results) System Automated count Monocytes/100 6.1 % 6.0 - Normal (applies Monocyte % [facility] leukocytes in 9.0 % to non-numeric Health Blood results) System Eosinophils/100 0.5 % 1.0 - Below low normal Eosinophil % [facility] leukocytes in 3.0 % Health Unspecified System specimen Basophils/100 0.2 % 0.0 - Normal (applies Basophil % [facility] leukocytes in 1.0 % to non-numeric Health Unspecified results) System specimen by Manual count Lymphocytes 34.0 % 21.0 - Normal (applies Lymphocyte % [facility] [#/volume] in 51.0 % to non-numeric Health Blood by results) System Automated count ID Date Data Source [id number] 05/23/2014 06:00:00 AM EDT [facility] Name Value Range Interpretation Description Data Sup porting Code Source(s) Document(s ) Sodium 136 137 - Below low normal Sodium, Serum [facility] [Moles/volume] in mmol/L 145 Health Serum or Plasma mmol/L System Potassium 3.7 3.6 - Normal (applies Potassium, [facility] [Mass/volume] in mmol/L 5.0 to non-numeric Serum Health Serum or Plasma mmol/L results) System Chloride 103 98 - Normal (applies Chloride, [facility] [Moles/volume] in mmol/L 107 to non-numeric Serum Health Serum or Plasma mmol/L results) System Carbon dioxide, 23.0 22.0 - Normal (applies CO2, Serum [facility] total mmol/L 30.0 to non-numeric Health [Moles/volume] in mmol/L results) System Serum or Plasma Total Protein 7.4 6.3 - Normal (applies Total Protein [facility] mg/dl 8.2 to non-numeric Health mg/dl results) System Glucose 131 65 - Above high Glucose, [facility] [Mass/volume] in mg/dL 105 normal Serum Health Serum or Plasma mg/dL System Urea nitrogen 11 7 - 18 Normal (applies Blood Urea [facility] [Mass/volume] in mg/dl mg/dl to non-numeric Nitrogen, Health Serum or Plasma results) Serum System Creatinine 1.10 0.70 - Normal (applies Creatinine, [facility] [Mass/volume] in mg/dl 1.20 to non-numeric Serum Health Serum or Plasma mg/dl results) System Alkaline 83 38 - Normal (applies Alkaline [facility] phosphatase {IU/L} 126 to non-numeric Phosphatase, Health isoenzymes IU/L results) Serum System [Enzymatic activity/volume] in Serum or Plasma by Heat stability Bilirubin.total 0.8 0.2 - Normal (applies Bilirubin, [facility] [Mass/volume] in mg/dl 1.3 to non-numeric Serum Total Health Serum or Plasma mg/dl results) System Direct Bilirubin 0.4 0.0 - Normal (applies Direct [facility] mg/dl 0.4 to non-numeric Bilirubin [facility] mg/dl results) System Aspartate 154 5 - 40 Above high Aspartate [facility] aminotransferase {IU/L} IU/L normal Transaminase, Health [Enzymatic Serum System activity/volume] in Serum or Plasma by With P-5'-P Albumin 3.4 3.9 - Below low normal Albumin, [facility] [Mass/volume] in {gm/dl} 5.0 Serum Health Serum or Plasma gm/dl System I. Phosphorus 3.1 2.5 - Normal (applies I. Phosphorus [facility] mg/dl 4.5 to non-numeric Health mg/dl results) System Alanine 63 7 - 56 Above high Alanine [facility] aminotransferase {IU/L} IU/L normal Aminotransfer [facility] [Enzymatic ase, Serum System activity/volume] in Serum or Plasma Calcium 8.7 8.4 - Normal (applies Calcium, [facility] [Mass/volume] in mg/dl 10.2 to non-numeric Total Serum Health Serum or Plasma mg/dl results) System A/G Ratio 0.85 Normal (applies A/G Ratio [facility] to non-numeric Health results) System Urate 8.1 2.5 - Above high Uric Acid, [facility] [Mass/volume] in mg/dl 7.5 normal Serum Health Serum or Plasma mg/dl System Anion gap in Serum 10.00 8.00 - Normal (applies Anion Gap [facility] or Plasma mmol/L 12.00 to non-numeric Health mmol/L results) System Glomerular 50.72 Normal (applies GFR [facility] filtration to non-numeric Health rate/1.73 sq results) System M.predicted [Volume Rate/Area] in Serum or Plasma by Creatinine-based formula (CKD-EPI) eGFR will provide clinicians with a more accurate indicator of renal function then the serum creatinine. The eGFR is automa tically calculated from an empiric formula (endorsed by the [employer] ion) which incorporates age, sex, and race.Clinicians may notice surprisingly low GFR's with serum creatinine valueswithin normal range- particularly in elderly wo men (with low muscle mass).In the hospital setting, the eGFR should add an element of safety in drug dosing, in assessing the risk of IV contrast administration, and in assessing vascular risk.The NKF staging system is as follows:Normal: eGFR >90 with no kidney markersStage 1: eGFR >90 with kidney markers*Stage 2: eGFR 60- 89Stage 3: eGFR 30-59Stage 4: eGFR 15-29Stage 5: eGFR <15 (usually requir ing dialysis)*Markers include: Proteinuria, Hematuria, abnormal imaging-studies, or other blood or urine test abnormalities ID Date Data Source [id number] 05/23/2014 06:00:00 AM EDT [facility] Name Value Range Interpretation Description Data Sup porting Code Source(s) Document(s ) Magnesium 1.5 1.7 - Below low normal Magnesium, [facility] [Mass/volume {mEq/L} 2.2 Serum Health System ] in Serum mEq/L or Plasma ID Date Data Source [id number] 05/22/2014 06:00:00 AM EDT [facility] Name Value Range Interpretation Description Data Sup porting Code Source(s) Document(s ) Leukocytes 5.0 10 4.8 - Normal (applies WBC Count [facility] [#/volume] in 10.8 10 to non-numeric Health Syst em Unspecified results) specimen by Automated count ok Erythrocytes 3.75 10 3.80 - Below low RBC Count [facility] [#/volume] in Blood 5.20 10 normal Health [facility] tem by Automated count Hemoglobin 12.0 12.0 - Normal Hemoglobin [facility] [Mass/volume] in {gm/dL} 16.0 gm/dL (applies to Health s tem Blood non-numeric results) Hematocrit [Volume 34.8 % 36.0 - Below low Hematocrit [facility] Fraction] of Blood 46.0 % normal Health Syst em Erythrocyte mean 92.8 fl 80.0 - Normal MCV [facility] corpuscular volume 100.0 fl (applies to Health Sy stem [Entitic volume] by non-numeric Automated count results) Erythrocyte mean 32.0 pg 26.0 - Normal MCH [facility] corpuscular 34.0 pg (applies to Health System hemoglobin [Entitic non-numeric mass] by Automated results) count Erythrocyte mean 34.5 33.0 - Normal MCHC [facility] corpuscular {gm/dL} 37.0 gm/dL (applies to Health System hemoglobin non-numeric concentration results) [Mass/volume] by Automated count Erythrocyte 12.7 % 11.5 - Normal RDW-CV [facility] distribution width 14.5 % (applies to Health Sy stem [Entitic volume] by non-numeric Automated count results) Platelets [#/volume] 160 10 130 - 400 Normal Platelet Count [facility] in Plasma by 10 (applies to Health System Automated count non-numeric results) Platelet mean volume 10.8 fl 7.4 - 10.4 Above high MPV [facility] [Entitic volume] in fl normal Health Sys tem Blood by Automated count Monocytes [#/volume] 0.2 10 0.3 - 0.9 Below low Monocyte # [facility] in Blood by Manual 10 normal Health Syst em count Eosinophils 0.01 10 0.05 - Below low Eosinophil # [facility] [#/volume] in Blood 0.30 10 normal Health Sys tem Neutrophils 3.1 10 2.0 - 8.1 Normal Neutrophil # [facility] [#/volume] in Body 10 (applies to Health Sy stem fluid non-numeric results) Basophils [#/volume] 0.01 10 0.00 - Normal Basophil # [facility] in Blood by 0.10 10 (applies to Health System Automated count non-numeric results) Lymphocyte # 1.6 10 1.0 - 5.5 Normal Lymphocyte # [facility] 10 (applies to Health System non-numeric results) Neutrophils/100 62.1 % 0.0 - Normal Neutrophil % [facility] leukocytes in Blood 120.0 % (applies to [facility] by Autom[facility] count non-numeric results) Monocytes/100 4.8 % 6.0 - 9.0 Below low Monocyte % [facility] leukocytes in Blood % normal Health Sys tem Eosinophils/100 0.2 % 1.0 - 3.0 Below low Eosinophil % [facility] leukocytes in % normal Health System Unspecified specimen Basophils/100 0.2 % 0.0 - 1.0 Normal Basophil % [facility] leukocytes in % (applies to Health System Unspecified specimen non-numeric by Manual count results) Lymphocytes 32.7 % 21.0 - Normal Lymphocyte % [facility] [#/volume] in Blood 51.0 % (applies to [facility] by Automated count non-numeric results) ID Date Data Source [id number] 05/22/2014 06:00:00 AM EDT [facility] Name Value Range Interpretation Description Data Sup porting Code Source(s) Document(s ) Sodium 136 137 - Below low normal Sodium, Serum [facility] [Moles/volume] in mmol/L 145 Health Serum or Plasma mmol/L System Potassium 3.2 3.6 - Below low normal Potassium, [facility] [Mass/volume] in mmol/L 5.0 Serum Health Serum or Plasma mmol/L System Chloride 101 98 - Normal (applies Chloride, [facility] [Moles/volume] in mmol/L 107 to non-numeric Serum Health Serum or Plasma mmol/L results) System Carbon dioxide, 22.0 22.0 - Normal (applies CO2, Serum [facility] total mmol/L 30.0 to non-numeric Health [Moles/volume] in mmol/L results) System Serum or Plasma Total Protein 7.8 6.3 - Normal (applies Total Protein [facility] mg/dl 8.2 to non-numeric Health mg/dl results) System Glucose 88 65 - Normal (applies Glucose, [facility] [Mass/volume] in mg/dL 105 to non-numeric Serum Health Serum or Plasma mg/dL results) System Urea nitrogen 8 mg/dl 7 - 18 Normal (applies Blood Urea [facility] [Mass/volume] in mg/dl to non-numeric Nitrogen, Health Serum or Plasma results) Serum System Creatinine 0.90 0.70 - Normal (applies Creatinine, [facility] [Mass/volume] in mg/dl 1.20 to non-numeric Serum Health Serum or Plasma mg/dl results) System Alkaline 87 38 - Normal (applies Alkaline [facility] phosphatase {IU/L} 126 to non-numeric Phosphatase, Health isoenzymes IU/L results) Serum System [Enzymatic activity/volume] in Serum or Plasma by Heat stability Bilirubin.total 1.6 0.2 - Above high Bilirubin, [facility] [Mass/volume] in mg/dl 1.3 normal Serum Total Health Serum or Plasma mg/dl System Direct Bilirubin 0.6 0.0 - Above high Direct [facility] mg/dl 0.4 normal Bilirubin Health mg/dl System Aspartate 173 5 - 40 Above high Aspartate [facility] aminotransferase {IU/L} IU/L normal Transaminase, Health [Enzymatic Serum System activity/volume] in Serum or Plasma by With P-5'-P Albumin 3.4 3.9 - Below low normal Albumin, [facility] [Mass/volume] in {gm/dl} 5.0 Serum Health Serum or Plasma gm/dl System I. Phosphorus 3.4 2.5 - Normal (applies I. Phosphorus [facility] mg/dl 4.5 to non-numeric Health mg/dl results) System Alanine 75 7 - 56 Above high Alanine [facility] aminotransferase {IU/L} IU/L normal Aminotransfer [facility] [Enzymatic ase, Serum System activity/volume] in Serum or Plasma Calcium 8.5 8.4 - Normal (applies Calcium, [facility] [Mass/volume] in mg/dl 10.2 to non-numeric Total Serum Health Serum or Plasma mg/dl results) System A/G Ratio 0.77 Normal (applies A/G Ratio [facility] to non-numeric Health results) System Urate 8.5 2.5 - Above high Uric Acid, [facility] [Mass/volume] in mg/dl 7.5 normal Serum Health Serum or Plasma mg/dl System Anion gap in Serum 13.00 8.00 - Above high Anion Gap [facility] or Plasma mmol/L 12.00 normal Health mmol/L System Glomerular 63.94 Normal (applies GFR [facility] filtration to non-numeric Health rate/1.73 sq results) System M.predicted [Volume Rate/Area] in Serum or Plasma by Creatinine-based formula (CKD-EPI) eGFR will provide clinicians with a more accurate indicator of renal function then the serum creatinine. The eGFR is automa tically calculated from an empiric formula (endorsed by the National Kid[employer] ion) which incorporates age, sex, and race.Clinicians may notice surprisingly low GFR's with serum creatinine valueswithin normal range- particularly in elderly wo men (with low muscle mass).In the hospital setting, the eGFR should add an element of safety in drug dosing, in assessing the risk of IV contrast administration, and in assessing vascular risk.The NKF staging system is as follows:Normal: eGFR >90 with no kidney markersStage 1: eGFR >90 with kidney markers*Stage 2: eGFR 60- 89Stage 3: eGFR 30-59Stage 4: eGFR 15-29Stage 5: eGFR <15 (usually requir ing dialysis)*Markers include: Proteinuria, Hematuria, abnormal imaging-studies, or other blood or urine test abnormalities ID Date Data Source [id number] 05/22/2014 06:00:00 AM EDT [facility] Name Value Range Interpretation Description Data Sup porting Code Source(s) Document(s ) Magnesium 1.2 1.7 - Below low normal Magnesium, [facility] [Mass/volume {mEq/L} 2.2 Serum Health System ] in Serum mEq/L or Plasma ID Date Data Source [id number] 05/21/2014 04:06:00 PM EDT [facility] Name Value Range Interpretation Description Data Sup porting Code Source(s) Document(s ) Sodium 135 mmol/L 137 - Below low normal Sodium, Serum [facility] [Moles/volum 145 Health e] in Serum mmol/L System or Plasma Potassium Cancelled Potassium, [facility] [Mass/volume HEMOLYZED Serum Health ] in Serum SPECIMEN System or Plasma Chloride 104 mmol/L 98 - Normal (applies Chloride, [facility] [Moles/volum 107 to non-numeric Serum Health e] in Serum mmol/L results) System or Plasma VERIFIED Carbon dioxide, 20.0 mmol/L 22.0 - 30.0 Below low CO2, Serum [facility] total [Moles/volume] mmol/L normal Health Sy stem in Serum or Plasma VERIFIED Glucose 129 mg/dL 65 - 105 Above high Glucose, Serum [facility] [Mass/volume] in mg/dL normal Health System Serum or Plasma VERIFIED Urea nitrogen 10 mg/dl 7 - 18 Normal (applies Blood Urea [facility] [Mass/volume] in mg/dl to non-numeric Nitrogen, Health S ystem Serum or Plasma results) Serum Creatinine 1.30 mg/dl 0.70 - Above high Creatinine, [facility] [Mass/volume] in 1.20 mg/dl normal Serum Health Syste m Serum or Plasma VERIFIED Calcium 8.2 mg/dl 8.4 - 10.2 Below low Calcium, Total [facility] [Mass/volume] in mg/dl normal Serum Health System Serum or Plasma Anion gap in Serum 11.00 8.00 - Normal Anion Gap [facility] or Plasma mmol/L 12.00 (applies to Health System mmol/L non-numeric results) VERIFIED ID Date Data Source [id number] 05/21/2014 04:06:00 PM EDT [facility] Name Value Range Interpretation Description Data Sup porting Code Source(s) Document(s ) Lactic 1.01 0.70 - Normal (applies Lactic Acid, [facility] Acid, {mEq/L} 2.10 to non-numeric Plasma *[facility] Plasma mEq/L results) I[facility] ONLY* *[facility] ONLY* VERIFIED ID Date Data Source [id number] 05/21/2014 04:06:00 PM EDT [facility] Name Value Range Interpretation Code Description Data Nyla rce(s) Supporting Document(s ) HbA1C 5.6 % 4.6 - 6.2 % Normal (applies to HbA1C [facility] non-numeric [facility] System results) ID Date Data Source [id number] 05/21/2014 04:06:00 PM EDT [facility] Name Value Range Interpretation Description Data Sup porting Code Source(s) Document(s ) Creatine 3310 30 - 135 Above high normal Creatine [facility] kinase.MB {IU/L} IU/L Kinase, Serum Health System [Mass/volum e] in Serum or Plasma ID Date Data Source [id number] 05/21/2014 06:06:00 AM EDT [facility] Name Value Range Interpretation Description Data Sup porting Code Source(s) Document(s ) Bacteria NO GROWTH Culture [facility] identified in Bacteria Blood Health Syst em Blood by Aerobe culture ID Date Data Source [id number] 05/21/2014 06:06:00 AM EDT [facility] Name Value Range Interpretation Description Data Sup porting Code Source(s) Document(s ) Bacteria NO GROWTH Culture [facility] identified in Bacteria Blood Health Syst em Blood by Aerobe culture ID Date Data Source [id number] 05/21/2014 06:06:00 AM EDT [facility] Name Value Range Interpretation Description Data Sup porting Code Source(s) Document(s ) Deprecated Micro Result Normal (applies Aerobic [facility] Bacteria to non-numeric Culture, Urine Health identified in results) System Urine by Aerobe culture XXX Escherichia Organism [facility] microorganism coli Health serotype System [Identifier] in Isolate by Agglutination [place] Count > 100,000 [place] Count [facility] CFU/ML Health IDENTIFICATIO System N AND SUSCEPTIBILIT Y PERFORMED BY MICROSCAN SYSTEM Amikacin <=16 - Amikacin [facility] [Susceptibili Sensitive Health ty] System Ampicillin >16 Resistant - Ampicillin [facility] [Susceptibili Health ty] System Ampicillin+Nielsen >16/8 - [facility] lbactam Resistant Ampicillin/Sulb Health [Susceptibili actam System ty] Aztreonam <=8 Sensitive - Aztreonam [facility] [Susceptibili Health ty] System Cefazolin <=8 Sensitive - cefazolin [facility] [Susceptibili Health ty] System Cefoxitin <=8 Sensitive - Cefoxitin [facility] [Mass/volume] Health in System Unspecified specimen Ceftriaxone <=8 Sensitive - Ceftriaxone [facility] [Susceptibili Health ty] System Ciprofloxacin <=1 Sensitive - [facility] [Susceptibili Ciprofloxacin Health ty] System Ertapenem <=1 Sensitive - Ertapenem [facility] [Susceptibili Health ty] by System Minimum inhibitory concentration (RADHA) Gentamicin <=4 Sensitive - Gentamicin [facility] [Susceptibili Health ty] System Nitrofurantoi <=32 - [facility] n Sensitive Nitrofurantoin Health [Mass/volume] System in Serum or Plasma Piperacillin+ <=16 - [facility] Tazobactam Sensitive Piperacillin/Ta Health [Susceptibili zobactam System ty] Trimethoprim+ <=2/38 - [facility] Sulfamethoxaz Sensitive Trimethoprim/Nielsen Health ole lfamethoxazole System [Susceptibili ty] ID Date Data Source [id number] 05/21/2014 06:06:00 AM EDT [facility] System Name Value Range Interpretation Description Data Sup porting Code Source(s) Document(s ) Color YELLOW Yellow Normal (applies Color [facility] to non-numeric Health results) System Appearance of CLEAR Clear Normal (applies Urine [facility] Urine to non-numeric Appearance Health results) System Specific 1.030 Normal (applies Urine Specific [facility] gravity of to non-numeric [facility] Urine results) System pH.. 6.0 4.6 - 8.0 Normal (applies pH.. [facility] {pH_units} pH units to non-numeric Health results) System Glucose, UA NEGATIVE < 50 Normal (applies Glucose, UA [facility] mg/dl to non-numeric Health results) System Protein 100 mg/dl < 30 Normal (applies Protein [facility] [Mass/volume] mg/dl to non-numeric Health in Serum or results) System Plasma Bilirubin NEGATIVE Negative Normal (applies Bilirubin [facility] Urine Sm to Lg to non-numeric Urine Health results) System Urobilinogen 0.2 mg/dL Normal (applies Urobilinogen [facility] [Mass/volume] to non-numeric UA Health in Urine results) System Ketones NEGATIVE Negative Normal (applies Ketones UA [facility] [Mass/volume] Tr to Lg to non-numeric Health in Urine results) System Nitrate+Nitrit NEGATIVE Negative Normal (applies Nitrite [facility] Neg/Pos to non-numeric Health [Mass/volume] results) System in Unspecified specimen Leukocyte SMALL Negative Abnormal Leukocyte [facility] esterase Tr to Lg (applies to Esterase Health [Units/volume] non-numeric Concentration System in Urine results) Leukocytes 1-2 0 - 2 Normal (applies White Blood [facility] [#/volume] in /HPF to non-numeric Cells Health Unspecified results) System specimen by Automated count Red Blood 2-4 0 - 1 Normal (applies Red Blood [facility] Cells /HPF to non-numeric Cells Health results) System Urine Blood LARGE Normal (applies Urine Blood [facility] to non-numeric Health results) System ID Date Data Source [id number] 05/21/2014 06:06:00 AM EDT [facility] Name Value Range Interpretation Description Data Sup porting Code Source(s) Document(s ) Leukocytes 12.8 10 4.8 - Above high WBC Count [facility] [#/volume] in 10.8 10 normal Health Unspecified System specimen by Automated count Erythrocytes 3.94 10 3.80 - Normal (applies RBC Count [facility] [#/volume] in 5.20 10 to non-numeric Health Blood by results) System Automated count Hemoglobin 13.0 12.0 - Normal (applies Hemoglobin [facility] [Mass/volume] in {gm/dL} 16.0 to non-numeric Health Blood gm/dL results) System Hematocrit 37.4 % 36.0 - Normal (applies Hematocrit [facility] [Volume 46.0 % to non-numeric Health Fraction] of results) System Blood Erythrocyte mean 94.9 fl 80.0 - Normal (applies MCV [facility] corpuscular 100.0 to non-numeric Health volume [Entitic fl results) System volume] by Automated count Erythrocyte mean 33.0 pg 26.0 - Normal (applies MCH [facility] corpuscular 34.0 pg to non-numeric Health hemoglobin results) System [Entitic mass] by Automated count Erythrocyte mean 34.8 33.0 - Normal (applies MCHC [facility] corpuscular {gm/dL} 37.0 to non-numeric Health hemoglobin gm/dL results) System concentration [Mass/volume] by Automated count Erythrocyte 12.8 % 11.5 - Normal (applies RDW-CV [facility] distribution 14.5 % to non-numeric Health width [Entitic results) System volume] by Automated count Platelets 204 10 130 - Normal (applies Platelet [facility] [#/volume] in 400 10 to non-numeric Count Health Plasma by results) System Automated count Platelet mean 10.4 fl 7.4 - Normal (applies MPV [facility] volume [Entitic 10.4 fl to non-numeric Health volume] in Blood results) System by Automated count Monocytes 0.4 10 0.3 - Normal (applies Monocyte # [facility] [#/volume] in 0.9 10 to non-numeric Health Blood by Manual results) System count Eosinophils 0.03 10 0.05 - Below low normal Eosinophil # [facility] [#/volume] in 0.30 10 Health Blood System Neutrophils 11.5 10 2.0 - Above high Neutrophil # [facility] [#/volume] in 8.1 10 normal Health Body fluid System Basophils 0.01 10 0.00 - Normal (applies Basophil # [facility] [#/volume] in 0.10 10 to non-numeric Health Blood by results) System Automated count Lymphocyte # 0.9 10 1.0 - Below low normal Lymphocyte # [facility] 5.5 10 Health System Neutrophils/100 89.5 % 0.0 - Normal (applies Neutrophil % [facility] leukocytes in 120.0 % to non-numeric Health Blood by results) System Automated count Monocytes/100 3.1 % 6.0 - Below low normal Monocyte % [facility] leukocytes in 9.0 % Health Blood System Eosinophils/100 0.2 % 1.0 - Below low normal Eosinophil % [facility] leukocytes in 3.0 % Health Unspecified System specimen Basophils/100 0.1 % 0.0 - Normal (applies Basophil % [facility] leukocytes in 1.0 % to non-numeric Health Unspecified results) System specimen by Manual count Lymphocytes 7.1 % 21.0 - Below low normal Lymphocyte % [facility] [#/volume] in 51.0 % Health Blood by System Automated count ID Date Data Source [id number] 05/21/2014 06:06:00 AM EDT [facility] System Name Value Range Interpretation Description Data Sup porting Code Source(s) Document(s ) Sodium 133 137 - Below low normal Sodium, Serum [facility] [Moles/volume] in mmol/L 145 Health Serum or Plasma mmol/L System Potassium 3.5 3.6 - Below low normal Potassium, [facility] [Mass/volume] in mmol/L 5.0 Serum Health Serum or Plasma mmol/L System Chloride 96 98 - Below low normal Chloride, [facility] [Moles/volume] in mmol/L 107 Serum Health Serum or Plasma mmol/L System Carbon dioxide, 13.0 22.0 - Below low normal CO2, Serum [facility] total mmol/L 30.0 Health [Moles/volume] in mmol/L System Serum or Plasma Total Protein 8.6 6.3 - Above high Total Protein [facility] mg/dl 8.2 normal Health mg/dl System Glucose 324 65 - Above high Glucose, [facility] [Mass/volume] in mg/dL 105 normal Serum Health Serum or Plasma mg/dL System Urea nitrogen 14 7 - 18 Normal (applies Blood Urea [facility] [Mass/volume] in mg/dl mg/dl to non-numeric Nitrogen, Health Serum or Plasma results) Serum System Creatinine 1.90 0.70 - Above high Creatinine, [facility] [Mass/volume] in mg/dl 1.20 normal Serum Health Serum or Plasma mg/dl System Alkaline 112 38 - Normal (applies Alkaline [facility] phosphatase {IU/L} 126 to non-numeric Phosphatase, Health isoenzymes IU/L results) Serum System [Enzymatic activity/volume] in Serum or Plasma by Heat stability Bilirubin.total 0.8 0.2 - Normal (applies Bilirubin, [facility] [Mass/volume] in mg/dl 1.3 to non-numeric Serum Total Health Serum or Plasma mg/dl results) System Direct Bilirubin 0.4 0.0 - Normal (applies Direct [facility] mg/dl 0.4 to non-numeric Bilirubin [facility] mg/dl results) System Aspartate 211 5 - 40 Above high Aspartate [facility] aminotransferase {IU/L} IU/L normal Transaminase, Health [Enzymatic Serum System activity/volume] in Serum or Plasma by With P-5'-P Albumin 3.8 3.9 - Below low normal Albumin, [facility] [Mass/volume] in {gm/dl} 5.0 Serum Health Serum or Plasma gm/dl System I. Phosphorus 5.0 2.5 - Above high I. Phosphorus [facility] mg/dl 4.5 normal Health mg/dl System Alanine 90 7 - 56 Above high Alanine [facility] aminotransferase {IU/L} IU/L normal Aminotransfer Health [Enzymatic ase, Serum System activity/volume] in Serum or Plasma Calcium 9.0 8.4 - Normal (applies Calcium, [facility] [Mass/volume] in mg/dl 10.2 to non-numeric Total Serum Health Serum or Plasma mg/dl results) System A/G Ratio 0.79 Normal (applies A/G Ratio [facility] to non-numeric Health results) System Urate 14.3 2.5 - Above high Uric Acid, [facility] [Mass/volume] in mg/dl 7.5 normal Serum Health Serum or Plasma mg/dl System Anion gap in Serum 24.00 8.00 - Above high Anion Gap [facility] or Plasma mmol/L 12.00 normal Health mmol/L System Glomerular 26.99 Normal (applies GFR [facility] filtration to non-numeric Health rate/1.73 sq results) System M.predicted [Volume Rate/Area] in Serum or Plasma by Creatinine-based formula (CKD-EPI) eGFR will provide clinicians with a more accurate indicator of renal function then the serum creatinine. The eGFR is automa tically calculated from an empiric formula (endorsed by the [employer] ion) which incorporates age, sex, and race.Clinicians may notice surprisingly low GFR's with serum creatinine valueswithin normal range- particularly in elderly wo men (with low muscle mass).In the hospital setting, the eGFR should add an element of safety in drug dosing, in assessing the risk of IV contrast administration, and in assessing vascular risk.The NKF staging system is as follows:Normal: eGFR >90 with no kidney markersStage 1: eGFR >90 with kidney markers*Stage 2: eGFR 60- 89Stage 3: eGFR 30-59Stage 4: eGFR 15-29Stage 5: eGFR <15 (usually requir ing dialysis)*Markers include: Proteinuria, Hematuria, abnormal imaging-studies, or other blood or urine test abnormalities ID Date Data Source [id number] 05/21/2014 06:06:00 AM EDT [facility] System Name Value Range Interpretation Description Data Sup porting Code Source(s) Document(s ) pH 7.354 7.380 - Below low normal pH [facility] {pH_unit 7.460 pH Health s} units System Carbon dioxide 35.6 32.0 - Normal (applies pCO2, [facility] [Partial {mm_Hg} 46.0 mm to non-numeric Arterial Health pressure] in Hg results) System Arterial blood Oxygen 58.6 74.0 - Below low normal pO2, Aterial [facility] [Partial {mm_Hg} 108.0 mm Health pressure] in Hg System Arterial blood Bicarbonate 19.4 20.0 - Below low normal HCO3, Venous [facility] [Moles/volume] mmol/L 26.0 Health in Venous mmol/L System blood TCO2 20.5 24.0 - Below low normal TCO2 [facility] mmol/L 30.0 Health mmol/L System O2 Saturation 88.7 % 92.0 - Below low normal O2 Saturation [facility] 96.0 % Health System Ionized 1.11 Normal (applies Ionized [facility] Calcium mmol/L to non-numeric Calcium Health results) System Base Excess. -5.3 -3.0 - Below low normal Base Excess. [facility] mmol/L 3.0 Health mmol/L System ID Date Data Source [id number] 05/21/2014 06:06:00 AM EDT [facility] System Name Value Range Interpretation Description Data Sup porting Code Source(s) Document(s ) Alcohol none Normal (applies Alcohol Ethyl, [facility] Ethyl, detected to non-numeric Blood Health System Blood None results) Detected ID Date Data Source [id number] 05/21/2014 06:06:00 AM EDT [facility] System Name Value Range Interpretation Description Data Sup porting Code Source(s) Document(s ) Magnesium 1.2 1.7 - Below low normal Magnesium, [facility] [Mass/volume {mEq/L} 2.2 Serum Health System ] in Serum mEq/L or Plasma ID Date Data Source [id number] 05/21/2014 06:06:00 AM EDT [facility] System Name Value Range Interpretation Description Data Sup porting Code Source(s) Document(s ) Lactic 8.22 0.70 - Above high normal Lactic Acid, [facility] Acid, {mEq/L} 2.10 Plasma *[facility] Plasma mEq/L KI ONLY* *[facility] KI ONLY* ID Date Data Source [id number] 05/21/2014 06:06:00 AM EDT [facility] Name Value Range Interpretation Description Data Sup porting Code Source(s) Document(s ) Amphetamine Negative Negative Normal (applies Amphetamine [facility] [Mass/volume] ng/ml to non-numeric Level, Urine Health in Urine results) System Cut-off = 1000 ng/mL Barbiturates Negative Negative Normal (applies Barbiturate [facility] [Mass/volume] in ng/ml to non-numeric Screen, Urine [facility] Urine by Screen results) method Cut-off = 200 ng/mL Benzodiazepines Positive Negative Abnormal Benzodiazepines, [facility] [Mass/volume] in ng/mL (applies to Urine Health Urine non-numeric System results) Cut-off = 200 ng/mL Cocaine Negative Negative Normal (applies Cocaine [facility] metabolites.other ng/ml to non-numeric Metabolite Health System [Mass/volume] in results) Screen, Urine Urine Cut-off = 300 ng/mL Methadone Positive Negative Abnormal (applies Methadone [facility] [Mass/volume] in to non-numeric Level, Urine [facility] System Urine results) Cut-off = 300 ng/mL Opiate 300, Negative Negative ng/ml Normal (applies to Opiate 300, [facility] Urine non-numeric Urine Health System results) Cut-off = 300 ng/mL Phencyclidine Negative Negative Normal (applies Phencyclidine, [facility] [Mass/volume] in ng/ml to non-numeric Urine [facility] yste Urine results) Cut-off = 25 ng/mL THC Negative Negative ng/mL Normal (applies to THC [facility] non-numeric results) Cutt-off = 50These results are for medic al treatment only. The positive findings are unconfirmed. Request confirmatory/quanti tative test if needed. ID Date Data Source [id number] 05/21/2014 06:06:00 AM EDT [facility] Name Value Range Interpretation Description Data Sup porting Code Source(s) Document(s ) Acetone, Negative Negative Normal (applies Acetone, [facility] Serum to non-numeric Serum Health Qualitative results) Qualitative System ID Date Data Source [id number] 05/08/2014 11:01:00 AM EST [facility] System Name Value Range Interpretation Description Data Source(s ) Supporting Code Document(s ) Reagin Ab Non-react Normal (applies to RPR. [facility] [Presence] junior non-numeric Health System in Serum by results) RPR ID Date Data Source [id number] 05/08/2014 11:01:00 AM EST [facility] Name Value Range Interpretation Description Data Sup porting Code Source(s) Document(s ) Leukocytes 5.8 10 4.8 - Normal (applies WBC Count [facility] [#/volume] in 10.8 10 to non-numeric Health Unspecified results) System specimen by Automated count Erythrocytes 4.20 10 3.80 - Normal (applies RBC Count [facility] [#/volume] in 5.20 10 to non-numeric Health Blood by results) System Automated count Hemoglobin 13.6 12.0 - Normal (applies Hemoglobin [facility] [Mass/volume] in {gm/dL} 16.0 to non-numeric Health Blood gm/dL results) System Hematocrit 39.2 % 36.0 - Normal (applies Hematocrit [facility] [Volume 46.0 % to non-numeric Health Fraction] of results) System Blood Erythrocyte mean 93.3 fl 80.0 - Normal (applies MCV [facility] corpuscular 100.0 to non-numeric Health volume [Entitic fl results) System volume] by Automated count Erythrocyte mean 32.4 pg 26.0 - Normal (applies MCH [facility] corpuscular 34.0 pg to non-numeric Health hemoglobin results) System [Entitic mass] by Automated count Erythrocyte mean 34.7 33.0 - Normal (applies MCHC [facility] corpuscular {gm/dL} 37.0 to non-numeric Health hemoglobin gm/dL results) System concentration [Mass/volume] by Automated count Erythrocyte 12.5 % 11.5 - Normal (applies RDW-CV [facility] distribution 14.5 % to non-numeric Health width [Entitic results) System volume] by Automated count Platelets 200 10 130 - Normal (applies Platelet [facility] [#/volume] in 400 10 to non-numeric Count Health Plasma by results) System Automated count Platelet mean 10.1 fl 7.4 - Normal (applies MPV [facility] volume [Entitic 10.4 fl to non-numeric Health volume] in Blood results) System by Automated count Monocytes 0.4 10 0.3 - Normal (applies Monocyte # [facility] [#/volume] in 0.9 10 to non-numeric Health Blood by Manual results) System count Eosinophils 0.08 10 0.05 - Normal (applies Eosinophil # [facility] [#/volume] in 0.30 10 to non-numeric Health Blood results) System Neutrophils 2.6 10 2.0 - Normal (applies Neutrophil # [facility] [#/volume] in 8.1 10 to non-numeric Health Body fluid results) System Basophils 0.01 10 0.00 - Normal (applies Basophil # [facility] [#/volume] in 0.10 10 to non-numeric Health Blood by results) System Automated count Lymphocyte # 2.7 10 1.0 - Normal (applies Lymphocyte # [facility] 5.5 10 to non-numeric Health results) System Neutrophils/100 45.1 % 0.0 - Normal (applies Neutrophil % [facility] leukocytes in 120.0 % to non-numeric Health Blood by results) System Automated count Monocytes/100 6.9 % 6.0 - Normal (applies Monocyte % [facility] leukocytes in 9.0 % to non-numeric Health Blood results) System Eosinophils/100 1.4 % 1.0 - Normal (applies Eosinophil % [facility] leukocytes in 3.0 % to non-numeric Health Unspecified results) System specimen Basophils/100 0.2 % 0.0 - Normal (applies Basophil % [facility] leukocytes in 1.0 % to non-numeric Health Unspecified results) System specimen by Manual count Lymphocytes 46.4 % 21.0 - Normal (applies Lymphocyte % [facility] [#/volume] in 51.0 % to non-numeric Health Blood by results) System Automated count ID Date Data Source [id number] 05/08/2014 11:01:00 AM EST [facility] Name Value Range Interpretation Description Data Sup porting Code Source(s) Document(s ) Sodium 140 137 - Normal (applies Sodium, Serum [facility] [Moles/volume] in mmol/L 145 to non-numeric Health Serum or Plasma mmol/L results) System Potassium 3.7 3.6 - Normal (applies Potassium, [facility] [Mass/volume] in mmol/L 5.0 to non-numeric Serum Health Serum or Plasma mmol/L results) System Chloride 104 98 - Normal (applies Chloride, [facility] [Moles/volume] in mmol/L 107 to non-numeric Serum Health Serum or Plasma mmol/L results) System Carbon dioxide, 25.0 22.0 - Normal (applies CO2, Serum [facility] total mmol/L 30.0 to non-numeric Health [Moles/volume] in mmol/L results) System Serum or Plasma Total Protein 9.1 6.3 - Above high Total Protein [facility] mg/dl 8.2 normal Health mg/dl System Glucose 83 65 - Normal (applies Glucose, [facility] [Mass/volume] in mg/dL 105 to non-numeric Serum Health Serum or Plasma mg/dL results) System Urea nitrogen 22 7 - 18 Above high Blood Urea [facility] [Mass/volume] in mg/dl mg/dl normal Nitrogen, Health Serum or Plasma Serum System Creatinine 1.20 0.70 - Normal (applies Creatinine, [facility] [Mass/volume] in mg/dl 1.20 to non-numeric Serum Health Serum or Plasma mg/dl results) System Alkaline 122 38 - Normal (applies Alkaline [facility] phosphatase {IU/L} 126 to non-numeric Phosphatase, Health isoenzymes IU/L results) Serum System [Enzymatic activity/volume] in Serum or Plasma by Heat stability Bilirubin.total 1.2 0.2 - Normal (applies Bilirubin, [facility] [Mass/volume] in mg/dl 1.3 to non-numeric Serum Total Health Serum or Plasma mg/dl results) System Direct Bilirubin 0.5 0.0 - Above high Direct [facility] mg/dl 0.4 normal Bilirubin Health mg/dl System Aspartate 118 5 - 40 Above high Aspartate [facility] aminotransferase {IU/L} IU/L normal Transaminase, Health [Enzymatic Serum System activity/volume] in Serum or Plasma by With P-5'-P Albumin 4.3 3.9 - Normal (applies Albumin, [facility] [Mass/volume] in {gm/dl} 5.0 to non-numeric Serum Health Serum or Plasma gm/dl results) System I. Phosphorus 3.1 2.5 - Normal (applies I. Phosphorus [facility] mg/dl 4.5 to non-numeric Health mg/dl results) System Alanine 72 7 - 56 Above high Alanine [facility] aminotransferase {IU/L} IU/L normal Aminotransfer Health [Enzymatic ase, Serum System activity/volume] in Serum or Plasma Calcium 9.8 8.4 - Normal (applies Calcium, [facility] [Mass/volume] in mg/dl 10.2 to non-numeric Total Serum Health Serum or Plasma mg/dl results) System A/G Ratio 0.90 Normal (applies A/G Ratio [facility] to non-numeric Health results) System Urate 9.7 2.5 - Above high Uric Acid, [facility] [Mass/volume] in mg/dl 7.5 normal Serum Health Serum or Plasma mg/dl System Anion gap in Serum 11.00 8.00 - Normal (applies Anion Gap [facility] or Plasma mmol/L 12.00 to non-numeric Health mmol/L results) System Glomerular 45.88 Normal (applies GFR [facility] filtration to non-numeric Health rate/1.73 sq results) System M.predicted [Volume Rate/Area] in Serum or Plasma by Creatinine-based formula (CKD-EPI) eGFR will provide clinicians with a more accurate indicator of renal function then the serum creatinine. The eGFR is automa tically calculated from an empiric formula (endorsed by the National [employer] ion) which incorporates age, sex, and race.Clinicians may notice surprisingly low GFR's with serum creatinine valueswithin normal range- particularly in elderly wo men (with low muscle mass).In the hospital setting, the eGFR should add an element of safety in drug dosing, in assessing the risk of IV contrast administration, and in assessing vascular risk.The NKF staging system is as follows:Normal: eGFR >90 with no kidney markersStage 1: eGFR >90 with kidney markers*Stage 2: eGFR 60- 89Stage 3: eGFR 30-59Stage 4: eGFR 15-29Stage 5: eGFR <15 (usually requir ing dialysis)*Markers include: Proteinuria, Hematuria, abnormal imaging-studies, or other blood or urine test abnormalities ID Date Data Source [id number] 05/01/2013 10:31:00 AM EST [facility] Name Value Range Interpretation Description Data Source(s ) Supporting Code Document(s ) Reagin Ab Non-react Normal (applies to RPR/VDRL. [facility] [Presence] junior non-numeric Health System in Serum by results) RPR ID Date Data Source [id number] 05/01/2013 10:31:00 AM EST [facility] Name Value Range Interpretation Description Data Sup porting Code Source(s) Document(s ) Color YELLOW YELLOW Normal (applies Color [facility] to non-numeric Health results) System Appearance of CLEAR CLEAR Normal (applies Urine [facility] Urine to non-numeric Appearance Health results) System Specific 1.025 Normal (applies Urine [facility] gravity of to non-numeric Specific Health Urine results) [place] System pH.. 6.0 4.6 - Normal (applies pH.. [facility] {pH_units} 8.0 pH to non-numeric Health units results) System Glucose, UA NEGATIVE Normal (applies Glucose, UA [facility] to non-numeric Health results) System Negative Protein 30 mg/dl Normal (applies Protein [facility] [Mass/volume] in to non-numeric Health S yste Serum or Plasma results) Bilirubin Urine NEGATIVE Normal (applies Bilirubin Urine [facility] to non-numeric Health System results) Urobilinogen 0.20 {eu/dL} 0.20 Normal (applies Urobilinogen UA [facility] [Mass/volume] in - to non-numeric Health S yste Urine 1.00 results) eu/dL Ketones NEGATIVE Normal (applies Ketones UA [facility] [Mass/volume] in to non-numeric Health S yste Urine results) Negative Nitrate+Nitrite POSITIVE Normal (applies to Nitrite [facility] [Mass/volume] in non-numeric results) Sy stem Unspecified specimen Negative Leukocyte esterase MODERATE Normal (applies Leukocyte Umu ase [facility] [Units/volume] in to non-numeric Concentration [facility] System Urine results) Negative Leukocytes 0 {/HPF} Normal (applies to White Blood [facility] [#/volume] in non-numeric Cells Health System Unspecified results) specimen by Automated count Red Blood Cells 0-2 Normal (applies to Red Blood Cells [facility] non-numeric Health System results) Epithelial cells 0-2 Normal (applies to Epithelial Fina ls [facility] [Presence] in non-numeric Health System Unspecified results) specimen by Wet preparation Mucus 0-2 Normal (applies to Mucus [facility] non-numeric Health System results) Bacteria LARGE Normal (applies to Bacteria [facility] [Presence] in non-numeric Health System Unspecified results) specimen Urine Blood TRACE-INTACT Normal (applies to Urine Blood [facility] non-numeric Health System results) ID Date Data Source [id number] 05/01/2013 10:31:00 AM EST [facility] Name Value Range Interpretation Description Data Sup porting Code Source(s) Document(s ) Leukocytes 4.7 4.8 - Below low normal WBC Count [facility] [#/volume] in {10^3_uL 10.8 Health Unspecified } 10^3 uL System specimen by Automated count Erythrocytes 4.51 3.80 - Normal (applies RBC Count [facility] [#/volume] in {10^6_uL 5.20 to non-numeric Health Blood by } 10^6 uL results) System Automated count Hemoglobin 14.2 12.0 - Normal (applies Hemoglobin, [facility] [Mass/volume] in {gm/dL} 16.0 to non-numeric Whole Blood Health Blood gm/dL results) System Hematocrit 41.0 % 36.0 - Normal (applies Hematocrit, [facility] [Volume 46.0 % to non-numeric Whole Blood Health Fraction] of results) System Blood Erythrocyte mean 90.9 fl 80.0 - Normal (applies MCV [facility] corpuscular 100.0 to non-numeric Health volume [Entitic fl results) System volume] by Automated count Erythrocyte mean 31.5 pg 26.0 - Normal (applies MCH [facility] corpuscular 34.0 pg to non-numeric Health hemoglobin results) System [Entitic mass] by Automated count Erythrocyte mean 34.6 33.0 - Normal (applies MCHC [facility] corpuscular {gm/dL} 37.0 to non-numeric Health hemoglobin gm/dL results) System concentration [Mass/volume] by Automated count Erythrocyte 12.2 % 11.5 - Normal (applies RDW [facility] distribution 14.5 % to non-numeric Health width [Entitic results) System volume] by Automated count Platelets 231 130 - Normal (applies Platelet [facility] [#/volume] in {10^3_uL 400 to non-numeric Count Health Plasma by } 10^3 uL results) System Automated count Platelet mean 10.0 fl 7.4 - Normal (applies MPV [facility] volume [Entitic 10.4 fl to non-numeric Health volume] in Blood results) System by Automated count Monocytes 0.3 0.3 - Below low normal Monocyte [facility] [#/volume] in {10^3_uL 0.9 Count Health Blood by Manual } 10^3 uL System count Eosinophils 0.1 0.1 - Normal (applies Eosinophil [facility] [#/volume] in {10^3_uL 0.3 to non-numeric Count Blood Health Blood } 10^3 uL results) System Basophils 0.0 0.0 - Normal (applies Basophil [facility] [#/volume] in {10^3_uL 0.1 to non-numeric Count Health Blood by } 10^3 uL results) System Automated count Neutrophils 2.9 2.0 - Normal (applies Absolute [facility] [#/volume] in {10^3_uL 8.1 to non-numeric Neutrophil Health Body fluid } 10^3 uL results) Count System Lymphocyte 1.5 1.0 - Normal (applies Lymphocyte [facility] Absolute {10^3_uL 5.5 to non-numeric Absolute Health } 10^3 uL results) System Neutrophils/100 60.4 % 0.0 - Normal (applies Neutrophil % [facility] leukocytes in 120.0 % to non-numeric Health Blood by results) System Automated count Monocytes/100 5.7 % 6.0 - Below low normal Monocyte % [facility] leukocytes in 9.0 % Health Blood System Eosinophils/100 1.3 % 1.0 - Normal (applies Eosinophil % [facility] grace leukocytes in 3.0 % to non-numeric Health Unspecified results) System specimen Basophils/100 0.4 % 0.0 - Normal (applies Basophil % [facility] leukocytes in 1.0 % to non-numeric Health Unspecified results) System specimen by Manual count Lymphocytes 32.2 % 21.0 - Normal (applies Lymphocyte % [facility] [#/volume] in 51.0 % to non-numeric Health Blood by results) System Automated count ID Date Data Source [id number] 05/01/2013 10:31:00 AM EST [facility] Name Value Range Interpretation Description Data Sup porting Code Source(s) Document(s ) Sodium 134 137 - Below low normal Sodium, Serum [facility] [Moles/volume] in mmol/L 145 Health Serum or Plasma mmol/L System Potassium 3.9 3.6 - Normal (applies Potassium, [facility] [Mass/volume] in mmol/L 5.0 to non-numeric Serum Health Serum or Plasma mmol/L results) System Chloride 100 98 - Normal (applies Chloride, [facility] [Moles/volume] in mmol/L 107 to non-numeric Serum Health Serum or Plasma mmol/L results) System Carbon dioxide, 25.0 22.0 - Normal (applies CO2, Serum [facility] total mmol/L 30.0 to non-numeric Health [Moles/volume] in mmol/L results) System Serum or Plasma Total Protein 8.1 6.3 - Normal (applies Total Protein [facility] mg/dl 8.2 to non-numeric Health mg/dl results) System Glucose 133 65 - Above high Glucose, [facility] [Mass/volume] in mg/dL 105 normal Serum Health Serum or Plasma mg/dL System Urea nitrogen 12 7 - 18 Normal (applies Blood Urea [facility] [Mass/volume] in mg/dl mg/dl to non-numeric Nitrogen, Health Serum or Plasma results) Serum System Creatinine 1.10 0.70 - Normal (applies Creatinine, [facility] [Mass/volume] in mg/dl 1.20 to non-numeric Serum Health Serum or Plasma mg/dl results) System Alkaline 125 38 - Normal (applies Alkaline [facility] phosphatase {IU/L} 126 to non-numeric Phosphatase, Health isoenzymes IU/L results) Serum System [Enzymatic activity/volume] in Serum or Plasma by Heat stability Bilirubin.total 0.7 0.2 - Normal (applies Bilirubin, [facility] [Mass/volume] in mg/dl 1.3 to non-numeric Serum Total Health Serum or Plasma mg/dl results) System Aspartate 79 5 - 40 Above high Aspartate [facility] aminotransferase {IU/L} IU/L normal Transaminase, Health [Enzymatic Serum System activity/volume] in Serum or Plasma by With P-5'-P Albumin 3.7 3.9 - Below low normal Albumin, [facility] [Mass/volume] in {gm/dl} 5.0 Serum Health Serum or Plasma gm/dl System I. Phosphorus 4.4 2.5 - Normal (applies I. Phosphorus [facility] mg/dl 4.5 to non-numeric Health mg/dl results) System Alanine 59 7 - 56 Above high Alanine [facility] aminotransferase {IU/L} IU/L normal Aminotransfer Health [Enzymatic ase, Serum System activity/volume] in Serum or Plasma Calcium 8.8 8.4 - Normal (applies Calcium, [facility] [Mass/volume] in mg/dl 10.2 to non-numeric Total Serum Health Serum or Plasma mg/dl results) System A/G Ratio 0.84 Normal (applies A/G Ratio [facility] to non-numeric Health results) System Urate 7.1 2.5 - Normal (applies Uric Acid, [facility] [Mass/volume] in mg/dl 7.5 to non-numeric Serum Health Serum or Plasma mg/dl results) System Anion gap in Serum 9.00 8.00 - Normal (applies Anion Gap [facility] or Plasma mmol/L 12.00 to non-numeric Health mmol/L results) System Glomerular 50.91 Normal (applies GFR [facility] filtration to non-numeric Health rate/1.73 sq results) System M.predicted [Volume Rate/Area] in Serum or Plasma by Creatinine-based formula (CKD-EPI) eGFR will provide clinicians with a more accurate indicator of renal function then the serum creatinine. The eGFR is automa tically calculated from an empiric formula (endorsed by the [employer]) which incorporates age, sex, and race.Clinicians may notice surprisingly low GFR's with serum creatinine valueswithin normal range- particularly in elderly wo men (with low muscle mass).In the hospital setting, the eGFR should add an element of safety in drug dosing, in assessing the risk of IV contrast administration, and in assessing vascular risk.The NKF staging system is as follows:Normal: eGFR >90 with no kidney markersStage 1: eGFR >90 with kidney markers*Stage 2: eGFR 60- 89Stage 3: eGFR 30-59Stage 4: eGFR 15-29Stage 5: eGFR <15 (usually requir ing dialysis)*Markers include: Proteinuria, Hematuria, abnormal imaging-studies, or other blood or urine test abnormalities ID Date Data Source [id number] 05/01/2013 10:31:00 AM EST [facility] System Name Value Range Interpretation Description Data Sup porting Code Source(s) Document(s ) Triglyceride 109 35 - 135 Normal (applies Triglycerides [facility] [Mass/volume] mg/dl mg/dl to non-numeric , Serum Health in Serum or results) System Plasma Optimal = < 100 mg/dLBoderline High = 15 0 - 199 mg/dLHigh = 200 - 499 mg/dLVery High = > 500 mg/dL Cholesterol 154 mg/dl *.* mg/dl Normal (applies Cholesterol, [facility] [Mass/volume] in to non-numeric Serum Health S ystem Serum or Plasma results) <200 mg/dL = Xittrwxkg056 - 239 md/dL = Borderline>240 mg/dL = High Risk Cholesterol in HDL 42.0 mg/dL 32.0 - Normal (applies HDL Choleste rol, [facility] [Mass/volume] in 75.0 mg/dL to non-numeric Serum Health System Serum or Plasma results) Cholesterol in LDL 90.2 mg/dL Normal (applies Low Density [facility] [Mass/volume] in to non-numeric Lipoprotein, Healt h System Serum or Plasma results) Calculated OPTIMAL: LESS THAN 100 mg/dLNEAR OPTIMAL : 100 - 129 mg/dLBODERLINE HIGH: 130 - 150 mg/dL Cholesterol in VLDL 21.8 Normal (applies to VLDL, Serum [facility] [Mass/volume] in non-numeric System Serum or Plasma results) CHD Risk 3.67 2.40 - Normal (applies to CHD Risk [facility] 5.30 non-numeric System results) ID Date Data Source [id number] 10/26/2012 11:12:00 AM EDT [facility] System Name Value Range Interpretation Description Data Sup porting Code Source(s) Document(s ) Albumin 4.3 3.9 - Normal (applies Albumin, [facility] [Mass/volume] in {gm/dl} 5.0 to non-numeric Serum Health Serum or Plasma gm/dl results) System Bilirubin.total 0.6 0.2 - Normal (applies Bilirubin, [facility] [Mass/volume] in mg/dl 1.3 to non-numeric Serum Total Health Serum or Plasma mg/dl results) System Aspartate 68 5 - 40 Above high Aspartate [facility] aminotransferase {IU/L} IU/L normal Transaminase, Health [Enzymatic Serum System activity/volume] in Serum or Plasma by With P-5'-P Alanine 47 7 - 56 Normal (applies Alanine [facility] aminotransferase {IU/L} IU/L to non-numeric Aminotransfer Heal th [Enzymatic results) ase, Serum System activity/volume] in Serum or Plasma Alkaline 153 38 - Above high Alkaline [facility] phosphatase {IU/L} 126 normal Phosphatase, Health isoenzymes IU/L Serum System [Enzymatic activity/volume] in Serum or Plasma by Heat stability Direct Bilirubin 0.2 0.0 - Normal (applies Direct [facility] mg/dl 0.4 to non-numeric Bilirubin [facility] mg/dl results) System Total Protein 9.2 6.3 - Above high Total Protein [facility] mg/dl 8.2 normal Health mg/dl System ID Date Data Source [id number] 10/26/2012 11:12:00 AM EDT [facility] Name Value Range Interpretation Description Data Sup porting Code Source(s) Document(s ) Triglyceride 93 mg/dl 35 - 135 Normal (applies Triglycerides [facility] [Mass/volume] mg/dl to non-numeric , Serum Health in Serum or results) System Plasma Optimal = < 100 mg/dLBoderline High = 15 0 - 199 mg/dLHigh = 200 - 499 mg/dLVery High = > 500 mg/dL Cholesterol 185 mg/dl *.* mg/dl Normal (applies Cholesterol, [facility] [Mass/volume] in to non-numeric Serum Health S ystem Serum or Plasma results) <200 mg/dL = [id number] - 239 md/dL = Borderline>240 mg/dL = High Risk Cholesterol in HDL 58.0 mg/dL 32.0 - Normal (applies HDL Choleste rol, [facility] [Mass/volume] in 75.0 mg/dL to non-numeric Serum Health System Serum or Plasma results) Cholesterol in LDL 108.4 Normal (applies Low Density [facility] [Mass/volume] in mg/dL to non-numeric Lipoprotein, Healt h System Serum or Plasma results) Calculated OPTIMAL: LESS THAN 100 mg/dLNEAR OPTIMAL : 100 - 129 mg/dLBODERLINE HIGH: 130 - 150 mg/dL Cholesterol in VLDL 18.6 Normal (applies to VLDL, Serum [facility] [Mass/volume] in non-numeric System Serum or Plasma results) CHD Risk 3.19 2.40 - Normal (applies to CHD Risk [facility] 5.30 non-numeric System results) ID Date Data Source [id number] 10/26/2012 11:12:00 AM EDT [facility] Name Value Range Interpretation Code Description Data Nyla rce(s) Supporting Document(s ) HbA1C 5.9 % 4.6 - 6.2 % Normal (applies to HbA1C [facility] non-numeric [facility] System results) ID Date Data Source [id number] 10/11/2012 11:40:00 AM EDT [facility] System Name Value Range Interpretation Description Data Sup porting Code Source(s) Document(s ) aPTT in Blood 25.7 22.7 - Normal (applies Activated [facility] by {Second 29.5 to non-numeric Partial Health Coagulation s} Seconds results) Thromboplastin System assay Time ID Date Data Source [id number] 10/11/2012 11:40:00 AM EDT [facility] System Name Value Range Interpretation Description Data Sup porting Code Source(s) Document(s ) Prothrombin 10.40 9.40 - Normal (applies Prothrombin [facility] time (PT) 12.00 to non-numeric time (PT) Health results) System INR in Blood 0.99 0.70 - Normal (applies INR Result [facility] by Coagulation {Ratio} 1.10 to non-numeric Health assay Ratio results) System Normal = 0.7-1.1Therapeutic = 2.0-3.0Mec hanical Heart = 3.0-4.5 ID Date Data Source [id number] 10/11/2012 11:40:00 AM EDT [facility] System Name Value Range Interpretation Description Data Sup porting Code Source(s) Document(s ) Leukocytes 7.0 4.8 - Normal (applies WBC Count [facility] [#/volume] in {10\\S\\3_ 10.8 to non-numeric Health Unspecified uL} 10\\S\\3 results) System specimen by uL Automated count Erythrocytes 4.37 3.80 - Normal (applies RBC Count [facility] [#/volume] in {10\\S\\6_ 5.20 to non-numeric Health Blood by uL} 10\\S\\6 results) System Automated count uL Hemoglobin 13.7 12.0 - Normal (applies Hemoglobin, [facility] [Mass/volume] in {gm/dL} 16.0 to non-numeric Whole Blood Health Blood gm/dL results) System Hematocrit 39.6 % 36.0 - Normal (applies Hematocrit, [facility] [Volume 46.0 % to non-numeric Whole Blood Health Fraction] of results) System Blood Erythrocyte mean 90.6 fl 80.0 - Normal (applies MCV [facility] corpuscular 100.0 to non-numeric Health volume [Entitic fl results) System volume] by Automated count Erythrocyte mean 31.4 pg 26.0 - Normal (applies MCH [facility] corpuscular 34.0 pg to non-numeric Health hemoglobin results) System [Entitic mass] by Automated count Erythrocyte mean 34.6 33.0 - Normal (applies MCHC [facility] corpuscular {gm/dL} 37.0 to non-numeric Health hemoglobin gm/dL results) System concentration [Mass/volume] by Automated count Erythrocyte 12.5 % 11.5 - Normal (applies RDW [facility] distribution 14.5 % to non-numeric Health width [Entitic results) System volume] by Automated count Platelets 214 130 - Normal (applies Platelet [facility] [#/volume] in {10\\S\\3_ 400 to non-numeric Count Health Plasma by uL} 10\\S\\3 results) System Automated count uL Platelet mean 10.0 fl 7.4 - Normal (applies MPV [facility] volume [Entitic 10.4 fl to non-numeric Health volume] in Blood results) System by Automated count Monocytes 0.4 0.3 - Normal (applies Monocyte [facility] [#/volume] in {10\\S\\3_ 0.9 to non-numeric Count Health Blood by Manual uL} 10\\S\\3 results) System count uL Eosinophils 0.0 0.1 - Below low normal Eosinophil [facility] [#/volume] in {10\\S\\3_ 0.3 Count Blood Health Blood uL} 10\\S\\3 System uL Basophils 0.0 0.0 - Normal (applies Basophil [facility] [#/volume] in {10\\S\\3_ 0.1 to non-numeric Count [facility] Blood by uL} 10\\S\\3 results) System Automated count uL Neutrophils 5.5 2.0 - Normal (applies Absolute [facility] [#/volume] in {10\\S\\3_ 8.1 to non-numeric Neutrophil [facility] Body fluid uL} 10\\S\\3 results) Count System uL Lymphocyte 1.0 1.0 - Normal (applies Lymphocyte [facility] Absolute {10\\S\\3_ 5.5 to non-numeric Absolute [facility] uL} 10\\S\\3 results) System uL Neutrophils/100 79.4 % 0.0 - Normal (applies Neutrophil % [facility] grace leukocytes in 120.0 % to non-numeric Health Blood by results) System Automated count Monocytes/100 5.5 % 6.0 - Below low normal Monocyte % [facility] leukocytes in 9.0 % Health Blood System Eosinophils/100 0.6 % 1.0 - Below low normal Eosinophil % [facility] leukocytes in 3.0 % Health Unspecified System specimen Basophils/100 0.1 % 0.0 - Normal (applies Basophil % [facility] leukocytes in 1.0 % to non-numeric Health Unspecified results) System specimen by Manual count Lymphocytes 14.4 % 21.0 - Below low normal Lymphocyte % [facility] [#/volume] in 51.0 % Health Blood by System Automated count ID Date Data Source [id number] 10/11/2012 11:40:00 AM EDT [facility] Name Value Range Interpretation Description Data Sup porting Code Source(s) Document(s ) Sodium 131 137 - Below low normal Sodium, Serum [facility] [Moles/volume] in mmol/L 145 Health Serum or Plasma mmol/L System Potassium 5.4 3.6 - Above high Potassium, [facility] [Mass/volume] in mmol/L 5.0 normal Serum Health Serum or Plasma mmol/L System Chloride 94 98 - Below low normal Chloride, [facility] [Moles/volume] in mmol/L 107 Serum Health Serum or Plasma mmol/L System Carbon dioxide, 20.0 22.0 - Below low normal CO2, Serum [facility] total mmol/L 30.0 Health [Moles/volume] in mmol/L System Serum or Plasma Total Protein 8.9 6.3 - Above high Total Protein [facility] mg/dl 8.2 normal Health mg/dl System Glucose 123 65 - Above high Glucose, [facility] [Mass/volume] in mg/dL 105 normal Serum Health Serum or Plasma mg/dL System Urea nitrogen 10 7 - 18 Normal (applies Blood Urea [facility] [Mass/volume] in mg/dl mg/dl to non-numeric Nitrogen, Health Serum or Plasma results) Serum System Creatinine 0.90 0.70 - Normal (applies Creatinine, [facility] [Mass/volume] in mg/dl 1.20 to non-numeric Serum Health Serum or Plasma mg/dl results) System Alkaline 131 38 - Above high Alkaline [facility] phosphatase {IU/L} 126 normal Phosphatase, Health isoenzymes IU/L Serum System [Enzymatic activity/volume] in Serum or Plasma by Heat stability Bilirubin.total 0.8 0.2 - Normal (applies Bilirubin, [facility] [Mass/volume] in mg/dl 1.3 to non-numeric Serum Total Health Serum or Plasma mg/dl results) System Aspartate 58 5 - 40 Above high Aspartate [facility] aminotransferase {IU/L} IU/L normal Transaminase, Health [Enzymatic Serum System activity/volume] in Serum or Plasma by With P-5'-P Albumin 4.2 3.9 - Normal (applies Albumin, [facility] [Mass/volume] in {gm/dl} 5.0 to non-numeric Serum Health Serum or Plasma gm/dl results) System I. Phosphorus 3.2 2.5 - Normal (applies I. Phosphorus [facility] mg/dl 4.5 to non-numeric Health mg/dl results) System Alanine 44 7 - 56 Normal (applies Alanine [facility] aminotransferase {IU/L} IU/L to non-numeric Aminotransfer Heal th [Enzymatic results) ase, Serum System activity/volume] in Serum or Plasma Calcium 9.5 8.4 - Normal (applies Calcium, [facility] [Mass/volume] in mg/dl 10.2 to non-numeric Total Serum Health Serum or Plasma mg/dl results) System A/G Ratio 0.89 Normal (applies A/G Ratio [facility] to non-numeric Health results) System Urate 5.9 2.5 - Normal (applies Uric Acid, [facility] [Mass/volume] in mg/dl 7.5 to non-numeric Serum Health Serum or Plasma mg/dl results) System Anion gap in Serum 17.00 8.00 - Above high Anion Gap [facility] or Plasma mmol/L 12.00 normal Health mmol/L System Glomerular 64.29 Normal (applies GFR [facility] filtration to non-numeric Health rate/1.73 sq results) System M.predicted [Volume Rate/Area] in Serum or Plasma by Creatinine-based formula (CKD-EPI) eGFR will provide clinicians with a more accurate indicator of renal function then the serum creatinine. The eGFR is automa tically calculated from an empiric formula (endorsed by the [employer]) which incorporates age, sex, and race.Clinicians may notice surprisingly low GFR's with serum creatinine valueswithin normal range- particularly in elderly wo men (with low muscle mass).In the hospital setting, the eGFR should add an element of safety in drug dosing, in assessing the risk of IV contrast administration, and in assessing vascular risk.The NKF staging system is as follows:Normal: eGFR >90 with no kidney markersStage 1: eGFR >90 with kidney markers*Stage 2: eGFR 60- 89Stage 3: eGFR 30-59Stage 4: eGFR 15-29Stage 5: eGFR <15 (usually requir ing dialysis)*Markers include: Proteinuria, Hematuria, abnormal imaging-studies, or other blood or urine test abnormalities ID Date Data Source [id number] 10/11/2012 11:40:00 AM EDT [facility] Name Value Range Interpretation Description Data Sup porting Code Source(s) Document(s ) Amphetamine Negative Negative Normal (applies Amphetamine [facility] [Mass/volume] ng/ml to non-numeric Level, Urine Health in Urine results) System Cut-off = 1000 ng/mL Barbiturates Negative Negative Normal (applies Barbiturate [facility] [Mass/volume] in ng/ml to non-numeric Screen, Urine Heal System Urine by Screen results) method Cut-off = 200 ng/mL Benzodiazepines Negative Negative Normal Benzodiazepines, [facility] [Mass/volume] in ng/mL (applies to Urine Health Urine non-numeric System results) Cut-off = 200 ng/mL Cocaine Negative Negative Normal (applies Cocaine [facility] metabolites.other ng/ml to non-numeric Metabolite Health System [Mass/volume] in results) Screen, Urine Urine Cut-off = 300 ng/mL Methadone Positive Negative Abnormal (applies Methadone [facility] [Mass/volume] in to non-numeric Level, Urine Healt h System Urine results) Cut-off = 300 ng/mL Opiate 300, Positive Negative ng/ml Abnormal (applies Opiate 300, [facility] Urine to non-numeric Urine Health System results) Cut-off = 300 ng/mL Phencyclidine Negative Negative Normal (applies Phencyclidine, [facility] [Mass/volume] in ng/ml to non-numeric Urine Health S ystem Urine results) Cut-off = 25 ng/mL THC Negative Negative ng/mL Normal (applies to THC [facility] non-numeric results) These results are for medical treatment only. The positive findings are unconfirmed. Request confirmatory/quantitative test i f needed. ID Date Data Source [id number] 10/11/2012 11:40:00 AM EDT [facility] Name Value Range Interpretation Description Data Sup porting Code Source(s) Document(s ) Amphetamine Negative Normal (applies Amphetamine [facility] Qualitative, to non-numeric Qualitative, Health Urine results) Urine System Barbituates, Negative Normal (applies Barbituates, [facility] Urine. to non-numeric Urine. Health results) System Benzodiazepine, Negative Normal (applies Benzodiazepine [facility] Urine. to non-numeric , Urine. Health results) System Cocaine Qual, Negative Normal (applies Cocaine Qual, [facility] Urine. to non-numeric Urine. Health results) System THC. SEE TEXT Normal (applies THC. [facility] Negative to non-numeric Health These results) System results are for medical treatment only. Analysis was performed as non-forensi c testing. Initial screen performed by [employer]zyme Immunoassay . These results are for medical treatment only. Analysis was performed as non-forensi c testing. This result is for medical treatment only. Analysis was performed as non-forensi c testing. These results are for medical treatment only. Analysis was performed as non-forensi c testing. This result is for medical treatment only. Analysis was performed as non-forensi c testing. This result is for medical treatment only. Analysis was performed as non-forensi c testing. This result is for medical treatment only. Analysis was performed as non-forensi c testing. This result is for medical treatment only. Analysis was performed as non-forensi c testing. This result is for medical treatment only. Analysis was performed as non-forensi c testing. Test Performed at: [facility] , [place] [address] Deya Grey M.D. Methaqualone Negative Normal (applies Methaqualone [facility] Qualitative, to non-numeric Qualitative, Health Urine results) Urine System Phencyclidine Negative Normal (applies Phencyclidine [facility] PCP to non-numeric PCP Health Qualitative, results) Qualitative, System Urine. Urine. Methadone Positive Abnormal Methadone [facility] Qualitative, (applies to Qualitative, Health Urine non-numeric Urine System results) Propoxyphene Negative Normal (applies Propoxyphene [facility] Qualitative, to non-numeric Qualitative, Health Urine results) Urine System Opiates, Urine Positive Abnormal Opiates, Urine [facility] (applies to Health non-numeric System results) ID Date Data Source [id number] 08/14/2012 10:14:00 AM EDT [facility] Name Value Range Interpretation Description Data Sup porting Code Source(s) Document(s ) Amphetamine Negative Negative Normal (applies Amphetamine [facility] [Mass/volume] ng/ml to non-numeric Level, Urine Health in Urine results) System Cut-off = 1000 ng/mL Barbiturates Negative Negative Normal (applies Barbiturate [facility] [Mass/volume] in ng/ml to non-numeric Screen, Urine Heal th System Urine by Screen results) method Cut-off = 200 ng/mL Benzodiazepines Negative Negative Normal Benzodiazepines, [facility] [Mass/volume] in ng/mL (applies to Urine Health Urine non-numeric System results) Cut-off = 200 ng/mL Cocaine Negative Negative Normal (applies Cocaine [facility] metabolites.other ng/ml to non-numeric Metabolite [facility] System [Mass/volume] in results) Screen, Urine Urine Cut-off = 300 ng/mL Methadone Positive Negative Abnormal (applies Methadone [facility] [Mass/volume] in to non-numeric Level, Urine Healt h System Urine results) Cut-off = 300 ng/mL Opiate 300, Negative Negative ng/ml Normal (applies to Opiate 300, [facility] Urine non-numeric Urine Health System results) Cut-off = 300 ng/mL Phencyclidine Negative Negative Normal (applies Phencyclidine, [facility] [Mass/volume] in ng/ml to non-numeric Urine Health S ystem Urine results) Cut-off = 25 ng/mL THC Negative Negative ng/mL Normal (applies to THC [facility] non-numeric results) These results are for medical treatment only. The positive findings are unconfirmed. Request confirmatory/quantitative test i f needed. ID Date Data Source [id number] 08/09/2012 06:00:00 AM EDT [facility] Name Value Range Interpretation Description Data Sup porting Code Source(s) Document(s ) Amphetamine Negative Negative Normal (applies Amphetamine [facility] [Mass/volume] ng/ml to non-numeric Level, Urine Health in Urine results) System Cut-off = 1000 ng/mL Barbiturates Negative Negative Normal (applies Barbiturate [facility] [Mass/volume] in ng/ml to non-numeric Screen, Urine Heal System Urine by Screen results) method Cut-off = 200 ng/mL Benzodiazepines Negative Negative Normal Benzodiazepines, [facility] [Mass/volume] in ng/mL (applies to Urine Health Urine non-numeric System results) Cut-off = 200 ng/mL Cocaine Negative Negative Normal (applies Cocaine [facility] metabolites.other ng/ml to non-numeric Metabolite [facility] System [Mass/volume] in results) Screen, Urine Urine Cut-off = 300 ng/mL Methadone Positive Negative Abnormal (applies Methadone [facility] [Mass/volume] in to non-numeric Level, [facility]rine [facility] Urine results) Cut-off = 300 ng/mL Opiate 300, Positive Negative ng/ml Abnormal (applies Opiate 300, [facility] [facility] to non-numeric [facility] results) Cut-off = 300 ng/mL Phencyclidine Negative Negative Normal (applies Phencyclidine, [facility] [Mass/volume] in ng/ml to non-numeric Urine Health S yste Urine results) Cut-off = 25 ng/mL THC Negative Negative ng/mL Normal (applies to [facility] non-numeric results) These results are for medical treatment only. The positive findings are unconfirmed. Request confirmatory/quantitative test i f needed. ID Date Data Source [id number] 07/18/2012 10:25:00 AM EDT [facility] Name Value Range Interpretation Description Data Sup porting Code Source(s) Document(s ) Amphetamine Negative Negative Normal (applies Amphetamine [facility] [Mass/volume] ng/ml to non-numeric Level, Urine Health in Urine results) System Cut-off = 1000 ng/mL Barbiturates Negative Negative Normal (applies Barbiturate [facility] [Mass/volume] in ng/ml to non-numeric Screen, Urine [facility] System Urine by Screen results) method Cut-off = 200 ng/mL Benzodiazepines Negative Negative Normal Benzodiazepines, [facility] [Mass/volume] in ng/mL (applies to Urine Health Urine non-numeric System results) Cut-off = 200 ng/mL Cocaine Negative Negative Normal (applies Cocaine [facility] metabolites.other ng/ml to non-numeric [facility] [Mass/volume] in results) Screen, Urine Urine Cut-off = 300 ng/mL Methadone Positive Negative Abnormal (applies Methadone [facility] [Mass/volume] in to non-numeric Level, [facility]) Cut-off = 300 ng/mL Opiate 300, Positive Negative ng/ml Abnormal (applies Opiate 300, [facility] U[facility] to non-numeric [facility] results) Cut-off = 300 ng/mL Phencyclidine Negative Negative Normal (applies Phencyclidine, [facility] [Mass/volume] in ng/ml to non-numeric Urine [facility] S [facility]ste Urine results) Cut-off = 25 ng/mL THC Negative Negative ng/mL Normal (applies to THC [facility] non-numeric results) These results are for medical treatment only. The positive findings are unconfirmed. Request confirmatory/quantitative test i f needed. ID Date Data Source [id number] 07/09/2012 10:32:00 AM EDT [facility] Name Value Range Interpretation Description Data Sup porting Code Source(s) Document(s ) Amphetamine Negative Normal (applies Amphetamine [facility] [Mass/volume] to non-numeric Level, Urine [facility] in Urine results) System Cut-off = 1000 ng/mL Reference Range: NE GATIVE 1000 ng/ml Barbiturates Negative Normal (applies to Barbiturate [facility] [Mass/volume] in non-numeric Screen, Urine [facility] Urine by Screen results) method Cut-off = 200 ng/mL Reference Range: NEG ATIVE 200 ng/ml Benzodiazepines Negative Normal (applies Benzodiazepines, [facility] [Mass/volume] in to non-numeric Urine [facility] S [facility]ste Urine results) Cut-off = 200 ng/mL Reference Range: NEG ATIVE 200 ng/ml Cocaine Negative Normal (applies Cocaine [facility] metabolites.other to non-numeric [facility] [Mass/volume] in Urine results) Screen, Urine Cut-off = 300 ng/mL Reference Range: NEG ATIVE 300 ng/ml Methadone Positive Abnormal (applies Methadone Level, [facility] [Mass/volume] in to non-numeric Urine System Urine results) Cut-off = 300 ng/mL Reference Range: NEG ATIVE 300 ng/ml Opiate 300, Positive Abnormal (applies to Opiate 300, [facility] Urine non-numeric results) Urine System Cut-off = 300 ng/mL Reference Range: NEG ATIVE 300 ng/ml Phencyclidine Negative Normal (applies Phencyclidine, Urine [facility] [Mass/volume] in to non-numeric Health S ystem Urine results) Cut-off = 25 ng/mL Reference Range: NEGA TIVE 25 ng/ml THC Negative Normal (applies to non-numeric resul ts) THC [facility] These results are for medical treatment only. The positive findings are unconfirmed. Request confirmatory/quantitative test i f needed. Reference Range: NEGATIVE 50 ng/mL ID Date Data Source [id number] 06/27/2012 01:37:00 PM EDT [facility] Name Value Range Interpretation Description Data Sup porting Code Source(s) Document(s ) Amphetamine Negative Negative Normal (applies Amphetamine [facility] [Mass/volume] ng/ml to non-numeric Level, Urine Health in Urine results) System Cut-off = 1000 ng/mL Barbiturates Negative Negative Normal (applies Barbiturate [facility] [Mass/volume] in ng/ml to non-numeric Screen, Urine Heal th System Urine by Screen results) method Cut-off = 200 ng/mL Benzodiazepines Negative Negative Normal Benzodiazepines, [facility] [Mass/volume] in ng/mL (applies to Urine Health Urine non-numeric System results) Cut-off = 200 ng/mL Cocaine Negative Negative Normal (applies Cocaine [facility] metabolites.other ng/ml to non-numeric [facility] [Mass/volume] in results) Screen, Urine Urine Cut-off = 300 ng/mL Methadone Positive Negative Abnormal (applies Methadone [facility] [Mass/volume] in to non-numeric Level, Urine Healt h System Urine results) Cut-off = 300 ng/mL Opiate 300, Negative Negative ng/ml Normal (applies to Opiate 300, [facility] Urine non-numeric Urine [facility] results) Cut-off = 300 ng/mL Phencyclidine Negative Negative Normal (applies Phencyclidine, [facility] [Mass/volume] in ng/ml to non-numeric Urine [facility] S ystem Urine results) Cut-off = 25 ng/mL THC Negative Negative ng/mL Normal (applies to THC [facility] non-numeric results) ID Date Data Source [id number] 06/18/2012 10:44:00 AM EDT [facility] Name Value Range Interpretation Description Data Sup porting Code Source(s) Document(s ) Hepatitis 26.90 {Ratio} <1.0 Above high Hepatitis C [facility] C Ratio Ratio normal Ratio Health System Hepatitis ReactiveReference Abnormal Hepatitis C [facility] C Range: Non Reactive (applies to Antibody, Health Antibody, This non-numeric Serum. System Serum. patient's sample results) tests reactive with a high ratio: >/=8.00. Samples with high ratios have been shown to repeat as positive using a different methodology 95% of the time or greater (CDC MMWR No. RR-3,2003). Therefore, additional testing for verification of the result is not recommended. Hepatitis DNR Test Performed Normal (applies Hepatitis B [facility] Surface at: [facility] to non-numeric [facility], One results) [place] [address] Deya Grey M.D. Hepatitis Non Normal (applies Hepatitis B [facility] B Core ReactiveReference to non-numeric Core Health Antibody Range: Non Reactive results) Antibody IgM System IgM Hepatitis NonreactiveReferenc Normal (applies Hepatitis A [facility] A IgM e Range: to non-numeric IgM Antibody Health Antibody Nonreactive results) System Hepatitis Non Normal (applies Hepatitis B [facility] B Surface ReactiveReference to non-numeric Surface [facility] Antigen. Range: Non Reactive results) Antigen. System ID Date Data Source [id number] 06/18/2012 10:44:00 AM KENNY [facility] System Name Value Range Interpretation Description Data Sup porting Code Source(s) Document(s ) Hepatitis C <43 Not Normal (applies Hepatitis C [facility] Viral RNA Detected to non-numeric Viral RNA Health Please note: results) System the guidelines for the use of new anti-HCV therapies (boceprevir and telaprevir) recommend using a test method that detects plasma viral nucleic acid levels as low as 10 IU/mL. This assay has a lower Limit of Detection of 7.1 IU/mL for genotype 1 and conforms to the recommendation . Quantitation of plasma HCV nucleic acid levels below 43 IU/mL (the Lower Limit of Quantitation for this test) may not be linear, and in this circumstance are reported as "<43 IU/mL HCV RNA Detected". Hepatitis C <1.63 Not Normal (applies Hepatitis C [facility] Viral RNA Detected to non-numeric Viral RNA Health Quantitative This test results) Quantitative System was performed using the CLAIR(R)AmpliP rep/CLAIR(R) TaqMan(R)HCV Test Kit ([employer]). Test Performed at: [email or web address], [place] [address] Deya Grey M.D. ID Date Data Source [id number] 06/18/2012 10:44:00 AM EDT [facility] Name Value Range Interpretation Description Data Sup porting Code Source(s) Document(s ) Alpha 2.3 ng/mL <6.1 Normal (applies Alpha [facility] Fetoprotei ng/mL to non-numeric Fetoprotein, Health Syst em n, Tumor results) Tumor Marker Marker This test was performed using the Whim[employer] s([employer]) chemiluminescent method. The use of AFP as a tumor marker is not recommended in females. Values obtained from different assay me thods cannot be used interchangeably. AFP levels, regardless of value, should not be interpreted as absolute evidence of the presence or absence of d isease. Test Performed at: [email or web address], [place] [address] Dyea Grey M.D. ID Date Data Source [id number] 06/18/2012 10:44:00 AM EDT [facility] Name Value Range Interpretation Description Data Sup porting Code Source(s) Document(s ) aPTT in Blood 25.2 22.7 - Normal (applies Activated [facility] by {Second 29.5 to non-numeric Partial Health Coagulation s} Seconds results) Thromboplastin System assay Time ID Date Data Source [id number] 06/18/2012 10:44:00 AM EDT [facility] System Name Value Range Interpretation Description Data Sup porting Code Source(s) Document(s ) Prothrombin 10.90 9.40 - Normal (applies Prothrombin [facility] time (PT) 12.00 to non-numeric time (PT) Health results) System INR in Blood 1.04 0.70 - Normal (applies INR Result [facility] by Coagulation {Ratio} 1.10 to non-numeric Health assay Ratio results) System Normal = 0.7-1.1Therapeutic = 2.0-3.0Mec hanical Heart = 3.0-4.5 ID Date Data Source [id number] 06/18/2012 10:44:00 AM EDT [facility] Name Value Range Interpretation Description Data Sup porting Code Source(s) Document(s ) Leukocytes 4.5 4.8 - Below low normal WBC Count [facility] [#/volume] in {10\\S\\3_ 10.8 Health Unspecified uL} 10\\S\\3 System specimen by uL Automated count Erythrocytes 4.48 3.80 - Normal (applies RBC Count [facility] [#/volume] in {10\\S\\6_ 5.20 to non-numeric Health Blood by uL} 10\\S\\6 results) System Automated count uL Hemoglobin 14.1 12.0 - Normal (applies Hemoglobin, [facility] [Mass/volume] in {gm/dL} 16.0 to non-numeric Whole Blood Health Blood gm/dL results) System Hematocrit 40.3 % 36.0 - Normal (applies Hematocrit, [facility] [Volume 46.0 % to non-numeric Whole Blood Health Fraction] of results) System Blood Erythrocyte mean 90.0 fl 80.0 - Normal (applies MCV [facility] corpuscular 100.0 to non-numeric Health volume [Entitic fl results) System volume] by Automated count Erythrocyte mean 31.5 pg 26.0 - Normal (applies MCH [facility] corpuscular 34.0 pg to non-numeric Health hemoglobin results) System [Entitic mass] by Automated count Erythrocyte mean 35.0 33.0 - Normal (applies MCHC [facility] corpuscular {gm/dL} 37.0 to non-numeric Health hemoglobin gm/dL results) System concentration [Mass/volume] by Automated count Erythrocyte 12.6 % 11.5 - Normal (applies RDW [facility] distribution 14.5 % to non-numeric Health width [Entitic results) System volume] by Automated count Platelets 262 130 - Normal (applies Platelet [facility] [#/volume] in {10\\S\\3_ 400 to non-numeric Count Health Plasma by uL} 10\\S\\3 results) System Automated count uL Platelet mean 10.2 fl 7.4 - Normal (applies MPV [facility] volume [Entitic 10.4 fl to non-numeric Health volume] in Blood results) System by Automated count Monocytes 0.2 Normal (applies Monocyte [facility] [#/volume] in {10\\S\\3_ to non-numeric Count Health Blood by Manual uL} results) System count Eosinophils 0.1 Normal (applies Eosinophil [facility] [#/volume] in {10\\S\\3} to non-numeric Count Blood Health Blood results) System Basophils 0.01 Normal (applies Basophil [facility] [#/volume] in {10\\S\\3_ to non-numeric Count Health Blood by uL} results) System Automated count Neutrophils 2.5 Normal (applies Absolute [facility] [#/volume] in {10\\S\\3_ to non-numeric Neutrophil Health Body fluid uL} results) Count System Lymphocyte 1.7 Normal (applies Lymphocyte [facility] Absolute {10\\S\\3_ to non-numeric Absolute Health uL} results) System Neutrophils/100 55.3 % Normal (applies Neutrophil % [facility] leukocytes in to non-numeric Health Blood by results) System Automated count Monocytes/100 4.0 % 6.0 - Below low normal Monocyte % [facility] leukocytes in 9.0 % Health Blood System Eosinophils/100 3.1 % 1.0 - Above high Eosinophil % [facility] leukocytes in 3.0 % normal Health Unspecified System specimen Basophils/100 0.2 % 0.0 - Normal (applies Basophil % [facility] leukocytes in 1.0 % to non-numeric Health Unspecified results) System specimen by Manual count Lymphocytes 37.4 % 21.0 - Normal (applies Lymphocyte % [facility] [#/volume] in 51.0 % to non-numeric Health Blood by results) System Automated count ID Date Data Source [id number] 06/18/2012 10:44:00 AM EDT [facility] Name Value Range Interpretation Description Data Sup porting Code Source(s) Document(s ) Thyrotropin 1.121 0.380 - Normal (applies Thyroid [facility] [Mass/volume] 6.150 to non-numeric Stimulating Health in Serum or results) Hormone, Serum System Plasma ID Date Data Source [id number] 06/18/2012 10:44:00 AM EDT [facility] Name Value Range Interpretation Description Data Sup porting Code Source(s) Document(s ) T4 Thyroxine 5.3 4.7 - Normal (applies T4 Thyroxine [facility] ug/dl 11.5 to non-numeric Health System ug/dl results) ID Date Data Source [id number] 06/18/2012 10:44:00 AM EDT [facility] Name Value Range Interpretation Description Data Sup porting Code Source(s) Document(s ) Triiodothyronine 26.8 24.2 - Normal (applies T3 Uptake [facility] resin uptake (T3RU) 34.2 to non-numeric Healt h in Serum or Plasma results) System ID Date Data Source [id number] 06/18/2012 10:44:00 AM EDT [facility] Name Value Range Interpretation Description Data Sup porting Code Source(s) Document(s ) Albumin 3.9 3.9 - Normal (applies Albumin, [facility] [Mass/volume] in {gm/dl} 5.0 to non-numeric Serum Health Serum or Plasma gm/dl results) System Bilirubin.total 0.4 0.2 - Normal (applies Bilirubin, [facility] [Mass/volume] in mg/dl 1.3 to non-numeric Serum Total Health Serum or Plasma mg/dl results) System Aspartate 40 5 - 40 Normal (applies Aspartate [facility] aminotransferase {IU/L} IU/L to non-numeric Transaminase, Heal th [Enzymatic results) Serum System activity/volume] in Serum or Plasma by With P-5'-P Alanine 28 7 - 56 Normal (applies Alanine [facility] aminotransferase {IU/L} IU/L to non-numeric Aminotransfer Heal th [Enzymatic results) ase, Serum System activity/volume] in Serum or Plasma Alkaline 131 38 - Above high Alkaline [facility] phosphatase {IU/L} 126 normal Phosphatase, Health isoenzymes IU/L Serum System [Enzymatic activity/volume] in Serum or Plasma by Heat stability Total Protein 8.8 6.3 - Above high Total Protein [facility] mg/dl 8.2 normal Health mg/dl System Direct Bilirubin 0.1 0.0 - Normal (applies Direct [facility] mg/dl 0.4 to non-numeric Bilirubin Health mg/dl results) System ID Date Data Source [id number] 06/18/2012 10:44:00 AM KENNY [facility] System Name Value Range Interpretation Description Data Sup porting Code Source(s) Document(s ) Sodium 136 137 - Below low normal Sodium, Serum [facility] [Moles/volume] in mmol/L 145 Health Serum or Plasma mmol/L System Potassium 3.5 3.6 - Below low normal Potassium, [facility] [Mass/volume] in mmol/L 5.0 Serum Health Serum or Plasma mmol/L System Chloride 100 98 - Normal (applies Chloride, [facility] [Moles/volume] in mmol/L 107 to non-numeric Serum Health Serum or Plasma mmol/L results) System Carbon dioxide, 24.0 22.0 - Normal (applies CO2, Serum [facility] total mmol/L 30.0 to non-numeric Health [Moles/volume] in mmol/L results) System Serum or Plasma Total Protein 8.8 6.3 - Above high Total Protein [facility] mg/dl 8.2 normal Health mg/dl System Glucose 126 65 - Above high Glucose, [facility] [Mass/volume] in mg/dL 105 normal Serum Health Serum or Plasma mg/dL System Urea nitrogen 9 mg/dl 7 - 18 Normal (applies Blood Urea [facility] [Mass/volume] in mg/dl to non-numeric Nitrogen, Health Serum or Plasma results) Serum System Creatinine 0.90 0.70 - Normal (applies Creatinine, [facility] [Mass/volume] in mg/dl 1.20 to non-numeric Serum Health Serum or Plasma mg/dl results) System Alkaline 131 38 - Above high Alkaline [facility] phosphatase {IU/L} 126 normal Phosphatase, Health isoenzymes IU/L Serum System [Enzymatic activity/volume] in Serum or Plasma by Heat stability Bilirubin.total 0.4 0.2 - Normal (applies Bilirubin, [facility] [Mass/volume] in mg/dl 1.3 to non-numeric Serum Total Health Serum or Plasma mg/dl results) System Aspartate 40 5 - 40 Normal (applies Aspartate [facility] aminotransferase {IU/L} IU/L to non-numeric Transaminase, Heal th [Enzymatic results) Serum System activity/volume] in Serum or Plasma by With P-5'-P Albumin 3.9 3.9 - Normal (applies Albumin, [facility] [Mass/volume] in {gm/dl} 5.0 to non-numeric Serum Health Serum or Plasma gm/dl results) System I. Phosphorus 4.0 2.5 - Normal (applies I. Phosphorus [facility] mg/dl 4.5 to non-numeric Health mg/dl results) System Alanine 28 7 - 56 Normal (applies Alanine [facility] aminotransferase {IU/L} IU/L to non-numeric Aminotransfer Heal th [Enzymatic results) ase, Serum System activity/volume] in Serum or Plasma Calcium 9.0 8.4 - Normal (applies Calcium, [facility] [Mass/volume] in mg/dl 10.2 to non-numeric Total Serum Health Serum or Plasma mg/dl results) System A/G Ratio 0.80 Normal (applies A/G Ratio [facility] to non-numeric Health results) System Urate 6.2 2.5 - Normal (applies Uric Acid, [facility] [Mass/volume] in mg/dl 7.5 to non-numeric Serum Health Serum or Plasma mg/dl results) System Anion gap in Serum 12.00 8.00 - Normal (applies Anion Gap [facility] or Plasma mmol/L 12.00 to non-numeric Health mmol/L results) System Glomerular 64.37 Normal (applies GFR [facility] filtration to non-numeric Health rate/1.73 sq results) System M.predicted [Volume Rate/Area] in Serum or Plasma by Creatinine-based formula (CKD-EPI) eGFR will provide clinicians with a more accurate indicator of renal function then the serum creatinine. The eGFR is automa tically calculated from an empiric formula (endorsed by the National [employer] ion) which incorporates age, sex, and race.Clinicians may notice surprisingly low GFR's with serum creatinine valueswithin normal range- particularly in elderly wo men (with low muscle mass).In the hospital setting, the eGFR should add an element of safety in drug dosing, in assessing the risk of IV contrast administration, and in assessing vascular risk.The NKF staging system is as follows:Normal: eGFR >90 with no kidney markersStage 1: eGFR >90 with kidney markers*Stage 2: eGFR 60- 89Stage 3: eGFR 30-59Stage 4: eGFR 15-29Stage 5: eGFR <15 (usually requir ing dialysis)*Markers include: Proteinuria, Hematuria, abnormal imaging-studies, or other blood or urine test abnormalities ID Date Data Source [id number] 06/18/2012 10:44:00 AM EDT [facility] Name Value Range Interpretation Code Description Data Nyla rce(s) Supporting Document(s ) HbA1C 5.5 % 4.6 - 6.2 % Normal (applies to HbA1C [facility] non-numeric Health System results) ID Date Data Source [id number] 06/18/2012 10:44:00 AM EDT [facility] Name Value Range Interpretation Description Data Sup porting Code Source(s) Document(s ) Cryoglobulin Not Normal (applies Cryoglobulin, [facility] [Mass/volume] Detected to non-numeric Serum Health in Serum or results) System Plasma ID Date Data Source [id number] 04/24/2012 10:40:00 AM EST [facility] Name Value Range Interpretation Description Data Source(s ) Supporting Code Document(s ) Reagin Ab Non-react Normal (applies to RPR/VDRL. [facility] [Presence] junior non-numeric Health System in Serum by results) RPR ID Date Data Source [id number] 04/24/2012 10:40:00 AM EST [facility] Name Value Range Interpretation Description Data Sup porting Code Source(s) Document(s ) Color YELLOW YELLOW Normal (applies Color [facility] to non-numeric Health results) System Appearance of CLEAR CLEAR Normal (applies Urine [facility] Urine to non-numeric Appearance Health results) System Specific 1.025 Normal (applies Urine [facility] gravity of to non-numeric Specific Health Urine results) [place] System pH.. 6.0 4.6 - Normal (applies pH.. [facility] {pH_units} 8.0 pH to non-numeric Health units results) System Glucose, UA NEGATIVE Normal (applies Glucose, UA [facility] to non-numeric Health results) System Negative Protein 100 mg/dl Normal (applies Protein [facility] [Mass/volume] in to non-numeric Health S ystem Serum or Plasma results) Bilirubin Urine NEGATIVE Normal (applies Bilirubin Urine [facility] to non-numeric Health System results) Urobilinogen 0.20 {eu/dL} 0.20 Normal (applies Urobilinogen UA [facility] [Mass/volume] in - to non-numeric Health S yste Urine 1.00 results) eu/dL Ketones NEGATIVE Normal (applies Ketones UA [facility] [Mass/volume] in to non-numeric Health S yste Urine results) Negative Nitrate+Nitrite POSITIVE Normal (applies to Nitrite [facility] Health [Mass/volume] in non-numeric results) Sy stem Unspecified specimen Negative Leukocyte esterase MODERATE Normal (applies Leukocyte Umu ase [facility] [Units/volume] in to non-numeric Concentration [facility] System Urine results) Negative Leukocytes 30-50 Normal (applies to White Blood Cells [facility] [#/volume] in non-numeric System Unspecified specimen results) by Automated count Red Blood Cells 2-5 Normal (applies to Red Blood Cells [facility] Health non-numeric System results) Epithelial cells MOD Normal (applies to Epithelial Fina ls [facility] Health [Presence] in non-numeric System Unspecified specimen results) by Wet preparation Bacteria [Presence] LARGE Normal ([facility] in Unspecified non-numeric System specimen results) Urine Blood SMALL Normal (applies to Urine Blood [facility] non-numeric System results) ID Date Data Source [id number] 04/24/2012 10:40:00 AM EST [facility] alth System Name Value Range Interpretation Description Data Sup porting Code Source(s) Document(s ) Leukocytes 4.3 4.8 - Below low normal WBC Count [facility] [#/volume] in {10\\S\\3_ 10.8 Health Unspecified uL} 10\\S\\3 System specimen by uL Automated count Erythrocytes 4.45 3.80 - Normal (applies RBC Count [facility] [#/volume] in {10\\S\\6_ 5.20 to non-numeric Health Blood by uL} 10\\S\\6 results) System Automated count uL Hemoglobin 13.8 12.0 - Normal (applies Hemoglobin, [facility] [Mass/volume] in {gm/dL} 16.0 to non-numeric Whole Blood Health Blood gm/dL results) System Hematocrit 40.1 % 36.0 - Normal (applies Hematocrit, [facility] [Volume 46.0 % to non-numeric Whole Blood Health Fraction] of results) System Blood Erythrocyte mean 90.1 fl 80.0 - Normal (applies MCV [facility] corpuscular 100.0 to non-numeric Health volume [Entitic fl results) System volume] by Automated count Erythrocyte mean 31.0 pg 26.0 - Normal (applies MCH [facility] corpuscular 34.0 pg to non-numeric Health hemoglobin results) System [Entitic mass] by Automated count Erythrocyte mean 34.4 33.0 - Normal (applies MCHC [facility] corpuscular {gm/dL} 37.0 to non-numeric Health hemoglobin gm/dL results) System concentration [Mass/volume] by Automated count Erythrocyte 12.7 % 11.5 - Normal (applies RDW [facility] distribution 14.5 % to non-numeric Health width [Entitic results) System volume] by Automated count Platelets 229 130 - Normal (applies Platelet [facility] [#/volume] in {10\\S\\3_ 400 to non-numeric Count Health Plasma by uL} 10\\S\\3 results) System Automated count uL Platelet mean 10.0 fl 7.4 - Normal (applies MPV [facility] volume [Entitic 10.4 fl to non-numeric Health volume] in Blood results) System by Automated count Monocytes 0.3 Normal (applies Monocyte [facility] [#/volume] in {10\\S\\3_ to non-numeric Count Health Blood by Manual uL} results) System count Eosinophils 0.1 Normal (applies Eosinophil [facility] [#/volume] in {10\\S\\3} to non-numeric Count Blood Health Blood results) System Neutrophils 2.1 Normal (applies Absolute [facility] [#/volume] in {10\\S\\3_ to non-numeric Neutrophil Health Body fluid uL} results) Count System Basophils 0.02 Normal (applies Basophil [facility] [#/volume] in {10\\S\\3_ to non-numeric Count Health Blood by uL} results) System Automated count Lymphocyte 1.8 Normal (applies Lymphocyte [facility] Absolute {10\\S\\3_ to non-numeric Absolute Health uL} results) System Neutrophils/100 48.3 % Normal (applies Neutrophil % [facility] leukocytes in to non-numeric Health Blood by results) System Automated count Monocytes/100 7.4 % 6.0 - Normal (applies Monocyte % [facility] leukocytes in 9.0 % to non-numeric Health Blood results) System Eosinophils/100 3.2 % 1.0 - Above high Eosinophil % [facility] leukocytes in 3.0 % normal Health Unspecified System specimen Basophils/100 0.5 % 0.0 - Normal (applies Basophil % [facility] leukocytes in 1.0 % to non-numeric Health Unspecified results) System specimen by Manual count Lymphocytes 40.6 % 21.0 - Normal (applies Lymphocyte % [facility] [#/volume] in 51.0 % to non-numeric Health Blood by results) System Automated count ID Date Data Source [id number] 04/24/2012 10:40:00 AM EST [facility] Name Value Range Interpretation Description Data Sup porting Code Source(s) Document(s ) Sodium 137 137 - Normal (applies Sodium, Serum [facility] [Moles/volume] in mmol/L 145 to non-numeric Health Serum or Plasma mmol/L results) System Potassium 3.7 3.6 - Normal (applies Potassium, [facility] [Mass/volume] in mmol/L 5.0 to non-numeric Serum Health Serum or Plasma mmol/L results) System Chloride 102 98 - Normal (applies Chloride, [facility] [Moles/volume] in mmol/L 107 to non-numeric Serum Health Serum or Plasma mmol/L results) System Carbon dioxide, 23.0 22.0 - Normal (applies CO2, Serum [facility] total mmol/L 30.0 to non-numeric Health [Moles/volume] in mmol/L results) System Serum or Plasma Total Protein 8.1 6.3 - Normal (applies Total Protein [facility] mg/dl 8.2 to non-numeric Health mg/dl results) System Glucose 111 65 - Above high Glucose, [facility] [Mass/volume] in mg/dL 105 normal Serum Health Serum or Plasma mg/dL System Urea nitrogen 11 7 - 18 Normal (applies Blood Urea [facility] [Mass/volume] in mg/dl mg/dl to non-numeric Nitrogen, Health Serum or Plasma results) Serum System Creatinine 0.90 0.70 - Normal (applies Creatinine, [facility] [Mass/volume] in mg/dl 1.20 to non-numeric Serum Health Serum or Plasma mg/dl results) System Alkaline 114 38 - Normal (applies Alkaline [facility] phosphatase {IU/L} 126 to non-numeric Phosphatase, Health isoenzymes IU/L results) Serum System [Enzymatic activity/volume] in Serum or Plasma by Heat stability Bilirubin.total 0.4 0.2 - Normal (applies Bilirubin, [facility] [Mass/volume] in mg/dl 1.3 to non-numeric Serum Total Health Serum or Plasma mg/dl results) System Aspartate 36 5 - 40 Normal (applies Aspartate [facility] aminotransferase {IU/L} IU/L to non-numeric Transaminase, Heal th [Enzymatic results) Serum System activity/volume] in Serum or Plasma by With P-5'-P Albumin 3.8 3.9 - Below low normal Albumin, [facility] [Mass/volume] in {gm/dl} 5.0 Serum Health Serum or Plasma gm/dl System I. Phosphorus 4.2 2.5 - Normal (applies I. Phosphorus [facility] mg/dl 4.5 to non-numeric Health mg/dl results) System Alanine 23 7 - 56 Normal (applies Alanine [facility] aminotransferase {IU/L} IU/L to non-numeric Aminotransfer Heal th [Enzymatic results) ase, Serum System activity/volume] in Serum or Plasma Calcium 9.2 8.4 - Normal (applies Calcium, [facility] [Mass/volume] in mg/dl 10.2 to non-numeric Total Serum Health Serum or Plasma mg/dl results) System A/G Ratio 0.88 Normal (applies A/G Ratio [facility] to non-numeric Health results) System Urate 7.4 2.5 - Normal (applies Uric Acid, [facility] [Mass/volume] in mg/dl 7.5 to non-numeric Serum Health Serum or Plasma mg/dl results) System Anion gap in Serum 12.00 8.00 - Normal (applies Anion Gap U[facility] or Plasma mmol/L 12.00 to non-numeric Health mmol/L results) System Glomerular 64.40 Normal (applies GFR [facility] filtration to non-numeric Health rate/1.73 sq results) System M.predicted [Volume Rate/Area] in Serum or Plasma by Creatinine-based formula (CKD-EPI) eGFR will provide clinicians with a more accurate indicator of renal function then the serum creatinine. The eGFR is automa tically calculated from an empiric formula (endorsed by the National Kid[employer] ion) which incorporates age, sex, and race.Clinicians may notice surprisingly low GFR's with serum creatinine valueswithin normal range- particularly in elderly wo men (with low muscle mass).In the hospital setting, the eGFR should add an element of safety in drug dosing, in assessing the risk of IV contrast administration, and in assessing vascular risk.The NKF staging system is as follows:Normal: eGFR >90 with no kidney markersStage 1: eGFR >90 with kidney markers*Stage 2: eGFR 60- 89Stage 3: eGFR 30-59Stage 4: eGFR 15-29Stage 5: eGFR <15 (usually requir ing dialysis)*Markers include: Proteinuria, Hematuria, abnormal imaging-studies, or other blood or urine test abnormalities ID Date Data Source [id number] 04/24/2012 10:40:00 AM EST [facility] Name Value Range Interpretation Description Data Sup porting Code Source(s) Document(s ) Triglyceride 97 mg/dl 35 - 135 Normal (applies Triglycerides [facility] [Mass/volume] mg/dl to non-numeric , Serum Health in Serum or results) System Plasma Optimal = < 100 mg/dLBoderline High = 15 0 - 199 mg/dLHigh = 200 - 499 mg/dLVery High = > 500 mg/dL Cholesterol 184 mg/dl *.* mg/dl Normal (applies Cholesterol, [facility] [Mass/volume] in to non-numeric Serum Health S yste Serum or Plasma results) <200 mg/dL = [id number] - 239 md/dL = Borderline>240 mg/dL = High Risk Cholesterol in HDL 46.0 mg/dL 32.0 - Normal (applies HDL Choleste rol, [facility] [Mass/volume] in 75.0 mg/dL to non-numeric Serum Health System Serum or Plasma results) Cholesterol in LDL 118.6 Normal (applies Low Density [facility] [Mass/volume] in mg/dL to non-numeric Lipoprotein, Healt h System Serum or Plasma results) Calculated OPTIMAL: LESS THAN 100 mg/dLNEAR OPTIMAL : 100 - 129 mg/dLBODERLINE HIGH: 130 - 150 mg/dL Cholesterol in VLDL 19.4 Normal (applies to VLDL, Serum [facility] [Mass/volume] in non-numeric System Serum or Plasma results) CHD Risk 4.00 2.40 - Normal (applies to CHD Risk [facility] 5.30 non-numeric System results) ID Date Data Source [id number] 08/17/2011 08:30:00 AM EDT [facility] Name Value Range Interpretation Description Data Sup porting Code Source(s) Document(s ) Cocaine Negative Normal (applies to Cocaine Qual, [facility] Qual, non-numeric Urine. Health System Urine. results) Normal - Negative 300 ng/mL Methadone, Urine. Positive negative Abnormal (applies Methadone, [facility] to non-numeric Urine. Health System results) Amphetamine Negative Normal (applies Amphetamine [facility] Qualitative, to non-numeric Qualitative, Health Sy stem Urine results) Urine Normal - Negative 1000 ng/mL Barbiturates Negative Negative Normal (applies Barbiturates [facility] Qualitative, to non-numeric Qualitative, Health Sy stem Urine. results) Urine. Methaqualone Negative Normal (applies Methaqualone [facility] Qualitative, Urine to non-numeric Qualitative, [facility] System results) Urine Phencyclidine PCP Negative Normal (applies Phencyclidine PC P [facility] Qualitative, to non-numeric Qualitative, Health Sy stem Urine. results) Urine. Normal - Negatgive 25 ng/mL Benzodiazepine, Negative Normal (applies Benzodiazepine, [facility] Urine. to non-numeric Urine. Health System results) Normal - Negative 300 ng/mL THC. Negative Normal (applies to non-numeric THC. [facility] results) Normal - Negative 50 ng/mL Propoxyphene Negative Normal (applies to Propoxyphene [facility] Qualitative, Urine non-numeric Qualitative, Urine Health System results) Normal - Negative 300 ng/mL Opiates, Urine Negative Normal (applies to Opiates, Urine [facility] non-numeric results) System Normal - Negative 300 ng/mL ID Date Data Source [id number] 06/20/2011 11:45:00 AM EDT [facility] System Name Value Range Interpretation Description Data Sup porting Code Source(s) Document(s ) aPTT in Blood 26.3 23.0 - Normal (applies Activated [facility] by {Second 33.0 to non-numeric Partial Health Coagulation s} Seconds results) Thromboplastin System assay Time ID Date Data Source [id number] 06/20/2011 11:45:00 AM EDT [facility] Name Value Range Interpretation Description Data Sup porting Code Source(s) Document(s ) Prothrombin 10.40 9.54 - Normal (applies Prothrombin [facility] time (PT) 11.90 to non-numeric time (PT) Health results) System INR in Blood 0.97 0.70 - Normal (applies INR Result [facility] by Coagulation {Ratio} 1.10 to non-numeric Health assay Ratio results) System Normal = 0.7-1.1Therapeutic = 2.0-3.0Mec hanical Heart = 3.0-4.5 ID Date Data Source [id number] 06/20/2011 11:45:00 AM EDT [facility] System Name Value Range Interpretation Description Data Sup porting Code Source(s) Document(s ) Leukocytes 3.4 4.8 - Below low normal WBC Count [facility] [#/volume] in {10\\S\\3_ 10.8 Health Unspecified uL} 10\\S\\3 System specimen by uL Automated count Erythrocytes 4.66 3.80 - Normal (applies RBC Count [facility] [#/volume] in {10\\S\\6_ 5.20 to non-numeric Health Blood by uL} 10\\S\\6 results) System Automated count uL Hemoglobin 14.7 12.0 - Normal (applies Hemoglobin, [facility] [Mass/volume] in {gm/dL} 16.0 to non-numeric Whole Blood Health Blood gm/dL results) System Hematocrit 42.0 % 36.0 - Normal (applies Hematocrit, [facility] [Volume 46.0 % to non-numeric Whole Blood Health Fraction] of results) System Blood Erythrocyte mean 90.1 fl 80.0 - Normal (applies MCV [facility] corpuscular 100.0 to non-numeric Health volume [Entitic fl results) System volume] by Automated count Erythrocyte mean 31.5 pg 26.0 - Normal (applies MCH [facility] corpuscular 34.0 pg to non-numeric Health hemoglobin results) System [Entitic mass] by Automated count Erythrocyte mean 35.0 33.0 - Normal (applies MCHC [facility] corpuscular {gm/dL} 37.0 to non-numeric Health hemoglobin gm/dL results) System concentration [Mass/volume] by Automated count Erythrocyte 12.2 % 11.5 - Normal (applies RDW [facility] distribution 14.5 % to non-numeric Health width [Entitic results) System volume] by Automated count Platelets 235 130 - Normal (applies Platelet [facility] [#/volume] in {10\\S\\3_ 400 to non-numeric Count Health Plasma by uL} 10\\S\\3 results) System Automated count uL Platelet mean 10.1 fl 7.4 - Normal (applies MPV [facility] volume [Entitic 10.4 fl to non-numeric Health volume] in Blood results) System by Automated count Monocytes 0.3 Normal (applies Monocyte [facility] [#/volume] in {10\\S\\3_ to non-numeric Count Health Blood by Manual uL} results) System count Eosinophils 0.1 Normal (applies Eosinophil [facility] [#/volume] in {10\\S\\3} to non-numeric Count Blood Health Blood results) System Neutrophils 2.0 Normal (applies Absolute [facility] [#/volume] in {10\\S\\3_ to non-numeric Neutrophil Health Body fluid uL} results) Count System Basophils 0.01 Normal (applies Basophil [facility] [#/volume] in {10\\S\\3_ to non-numeric Count Health Blood by uL} results) System Automated count Lymphocyte 1.1 Normal (applies Lymphocyte [facility] Absolute {10\\S\\3_ to non-numeric Absolute Health uL} results) System Neutrophils/100 59.3 % Normal (applies Neutrophil % [facility] grace leukocytes in to non-numeric Health Blood by results) System Automated count Monocytes/100 8 % 6 - 9 % Normal (applies Monocyte % [facility] leukocytes in to non-numeric Health Blood results) System Eosinophils/100 2 % 1 - 3 % Normal (applies Eosinophil % [facility] grace leukocytes in to non-numeric Health Unspecified results) System specimen Basophils/100 0 % 0 - 1 % Normal (applies Basophil % [facility] leukocytes in to non-numeric Health Unspecified results) System specimen by Manual count Lymphocytes 31 % 21 - 51 Normal (applies Lymphocyte % [facility] [#/volume] in % to non-numeric Health Blood by results) System Automated count ID Date Data Source [id number] 06/20/2011 11:45:00 AM [facility] System Name Value Range Interpretation Description Data Sup porting Code Source(s) Document(s ) Sodium 132 mmol/L 137 - Below low Sodium, [facility] [Moles/volume] 145 normal Serum Health in Serum or mmol/L System Plasma Potassium 4.2 mmol/L 3.6 - Normal (applies Potassium, [facility] [Mass/volume] 5.0 to non-numeric Serum Health in Serum or mmol/L results) System Plasma Chloride 98 mmol/L 98 - Normal (applies Chloride, [facility] [Moles/volume] 107 to non-numeric Serum Health in Serum or mmol/L results) System Plasma Carbon dioxide, 26.0 mmol/L 22.0 - Normal (applies CO2, Serum Ubal[facility] grace total 30.0 to non-numeric Health [Moles/volume] mmol/L results) System in Serum or Plasma Total Protein 8.3 mg/dl 6.3 - Above high Total [facility] 8.2 normal Protein Health mg/dl System Glucose 176 mg/dL 65 - Above high Glucose, [facility] [Mass/volume] 105 normal Serum Health in Serum or mg/dL System Plasma Urea nitrogen 7 mg/dl 7 - 18 Normal (applies Blood Urea [facility] [Mass/volume] mg/dl to non-numeric Nitrogen, Health in Serum or results) Serum System Plasma Creatinine 0.70 mg/dl 0.70 - Normal (applies Creatinine, [facility] [Mass/volume] 1.20 to non-numeric Serum Health in Serum or mg/dl results) System Plasma Alkaline 122 {IU/L} 38 - Normal (applies Alkaline [facility] phosphatase 126 to non-numeric Phosphatase, Health isoenzymes IU/L results) Serum System [Enzymatic activity/volume ] in Serum or Plasma by Heat stability Bilirubin.total 0.4 mg/dl 0.2 - Normal (applies Bilirubin, [facility] [Mass/volume] 1.3 to non-numeric Serum Total Health in Serum or mg/dl results) System Plasma Aspartate 37 {IU/L} 5 - 40 Normal (applies Aspartate [facility] aminotransferas IU/L to non-numeric Transaminase Health e [Enzymatic results) , Serum System activity/volume ] in Serum or Plasma by With P-5'-P Albumin 3.9 {gm/dl} 3.9 - Normal (applies Albumin, [facility] [Mass/volume] 5.0 to non-numeric Serum Health in Serum or gm/dl results) System Plasma I. Phosphorus 3.7 mg/dl 2.5 - Normal (applies I. [facility] 4.5 to non-numeric Phosphorus Health mg/dl results) System Alanine 25 {IU/L} 7 - 56 Normal (applies Alanine [facility] aminotransferas IU/L to non-numeric Aminotransfe Health e [Enzymatic results) rase, Serum System activity/volume ] in Serum or Plasma Calcium 9.1 mg/dl 8.4 - Normal (applies Calcium, [facility] [Mass/volume] 10.2 to non-numeric Total Serum Health in Serum or mg/dl results) System Plasma A/G Ratio 0.89 Normal (applies A/G Ratio [facility] to non-numeric Health results) System Urate 5.1 mg/dl 2.5 - Normal (applies Uric Acid, [facility] [Mass/volume] 7.5 to non-numeric Serum Health in Serum or mg/dl results) System Plasma Anion gap in 8.00 mmol/L 8.00 - Normal (applies Anion Gap [facility] Serum or Plasma 12.00 to non-numeric Health mmol/L results) System Glomerular Greater than Normal (applies GFR [facility] filtration 60 eGFR will to non-numeric Health rate/1.73 sq provide results) System M.predicted clinicians [Volume with a more Rate/Area] in accurate Serum or Plasma indicator of by renal function Creatinine-base then the serum d formula creatinine. (CKD-EPI) The eGFR is automatically calculated from an empiric formula (endorsed by the [employer]) which incorporates age, sex, and race.Clinician s may notice surprisingly low GFR's with serum creatinine valueswithin normal range- particularly in elderly women (with low muscle mass).In the hospital setting, the eGFR should add an element of safety in drug dosing, in assessing the risk of IV contrast administration , and in assessing vascular risk.The NKF staging system is as follows:Normal : eGFR >90 with no kidney markersStage 1: eGFR >90 with kidney markers*Stage 2: eGFR 60-89Stage 3: eGFR 30-59Stage 4: eGFR 15-29Stage 5: eGFR <15 (usually requiring dialysis)* ers include: Proteinuria, Hematuria, abnormal imaging-studie s, or other blood or urine test abnormalities ID Date Data Source [id number] 05/03/2011 11:38:34 AM EST [facility] System Name Value Range Interpretation Description Data Sup porting Code Source(s) Document(s ) Hepatitis C 35.00 0.00 - Above high Hepatitis C [facility] Ratio {Ratio} 1.00 normal Ratio Health Ratio System Hepatitis C Reactive Abnormal Hepatitis C [facility] Antibody, (applies to Antibody, Health Serum. non-numeric Serum. System results) Reference Range: Non reactive ID Date Data Source [id number] 05/03/2011 11:38:34 AM EST [facility] Name Value Range Interpretation Description Data Source(s ) Supporting Code Document(s ) Reagin Ab Non-react Normal (applies to RPR/VDRL. [facility] [Presence] junior non-numeric Health System in Serum by results) RPR ID Date Data Source [id number] 05/03/2011 11:38:34 AM EST [facility] Name Value Range Interpretation Description Data Sup porting Code Source(s) Document(s ) Color YELLOW YELLOW Normal (applies Color [facility] to non-numeric Health results) System Appearance of CLEAR CLEAR Normal (applies Urine [facility] Urine to non-numeric Appearance Health results) System Specific 1.025 Normal (applies Urine [facility] gravity of to non-numeric Specific Health Urine results) [place] System pH.. 6.0 4.6 - Normal (applies pH.. [facility] {pH_units} 8.0 pH to non-numeric Health units results) System Glucose, UA NEGATIVE Normal (applies Glucose, UA [facility] to non-numeric Health results) System Negative Protein 100 mg/dl Normal (applies Protein [facility] [Mass/volume] in to non-numeric Health S ystem Serum or Plasma results) Bilirubin Urine NEGATIVE Normal (applies Bilirubin Urine [facility] to non-numeric Health System results) Urobilinogen 0.20 {eu/dL} 0.20 Normal (applies Urobilinogen UA [facility] [Mass/volume] in - to non-numeric Health S ystem Urine 1.00 results) eu/dL Ketones NEGATIVE Normal (applies Ketones UA [facility] [Mass/volume] in to non-numeric Health S ystem Urine results) Negative Nitrate+Nitrite NEGATIVE Normal (applies to Nitrite [facility] [Mass/volume] in non-numeric results) Sy stem Unspecified specimen Negative Leukocyte esterase MODERATE Normal (applies Leukocyte Umu ase [facility] [Units/volume] in to non-numeric Concentration Hea lt System Urine results) Negative Leukocytes 5-10 Normal (applies to White Blood Cells [facility] [#/volume] in non-numeric System Unspecified results) specimen by Automated count Red Blood Cells 0-2 Normal (applies to Red Blood Cells [facility] non-numeric System results) Epithelial cells 0-2 Normal (applies to Epithelial Fina ls [facility] [Presence] in non-numeric System Unspecified results) specimen by Wet preparation Bacteria [Presence] packed Normal (applies to Bacteria [facility] in Unspecified non-numeric System specimen results) Urine Blood SMALL NEG Abnormal (applies Urine Blood [facility] to non-numeric System results) ID Date Data Source [id number] 05/03/2011 11:38:34 AM EST [facility] Name Value Range Interpretation Description Data Sup porting Code Source(s) Document(s ) Leukocytes 3.4 4.8 - Below low normal WBC Count [facility] [#/volume] in {10\\S\\3_ 10.8 Health Unspecified uL} 10\\S\\3 System specimen by uL Automated count Erythrocytes 4.79 3.80 - Normal (applies RBC Count [facility] [#/volume] in {10\\S\\6_ 5.20 to non-numeric Health Blood by uL} 10\\S\\6 results) System Automated count uL Hemoglobin 15.2 12.0 - Normal (applies Hemoglobin, [facility] [Mass/volume] in {gm/dL} 16.0 to non-numeric Whole Blood Health Blood gm/dL results) System Hematocrit 44.4 % 36.0 - Normal (applies Hematocrit, [facility] [Volume 46.0 % to non-numeric Whole Blood Health Fraction] of results) System Blood Erythrocyte mean 92.7 fl 80.0 - Normal (applies MCV [facility] corpuscular 100.0 to non-numeric Health volume [Entitic fl results) System volume] by Automated count Erythrocyte mean 31.7 pg 26.0 - Normal (applies MCH [facility] corpuscular 34.0 pg to non-numeric Health hemoglobin results) System [Entitic mass] by Automated count Erythrocyte mean 34.2 33.0 - Normal (applies MCHC [facility] corpuscular {gm/dL} 37.0 to non-numeric Health hemoglobin gm/dL results) System concentration [Mass/volume] by Automated count Erythrocyte 12.3 % 11.5 - Normal (applies RDW [facility] distribution 14.5 % to non-numeric Health width [Entitic results) System volume] by Automated count Platelets 264 130 - Normal (applies Platelet [facility] [#/volume] in {10\\S\\3_ 400 to non-numeric Count Health Plasma by uL} 10\\S\\3 results) System Automated count uL Platelet mean 9.9 fl 7.4 - Normal (applies MPV [facility] volume [Entitic 10.4 fl to non-numeric Health volume] in Blood results) System by Automated count Monocytes 0.3 Normal (applies Monocyte [facility] [#/volume] in {10\\S\\3_ to non-numeric Count Health Blood by Manual uL} results) System count Eosinophils 0.1 Normal (applies Eosinophil [facility] [#/volume] in {10\\S\\3} to non-numeric Count Blood Health Blood results) System Basophils 0.01 Normal (applies Basophil [facility] [#/volume] in {10\\S\\3_ to non-numeric Count Health Blood by uL} results) System Automated count Neutrophils 1.7 Normal (applies Absolute [facility] [#/volume] in {10\\S\\3_ to non-numeric Neutrophil Health Body fluid uL} results) Count System Lymphocyte 1.3 Normal (applies Lymphocyte [facility] Absolute {10\\S\\3_ to non-numeric Absolute Health uL} results) System Neutrophils/100 51.0 % Normal (applies Neutrophil % [facility] grace leukocytes in to non-numeric Health Blood by results) System Automated count Monocytes/100 9 % 6 - 9 % Normal (applies Monocyte % [facility] leukocytes in to non-numeric Health Blood results) System Eosinophils/100 2 % 1 - 3 % Normal (applies Eosinophil % [facility] grace leukocytes in to non-numeric Health Unspecified results) System specimen Basophils/100 0 % 0 - 1 % Normal (applies Basophil % [facility] leukocytes in to non-numeric Health Unspecified results) System specimen by Manual count Lymphocytes 38 % 21 - 51 Normal (applies Lymphocyte % [facility] [#/volume] in % to non-numeric Health Blood by results) System Automated count ID Date Data Source [id number] 05/03/2011 11:38:34 AM EST [facility] Name Value Range Interpretation Description Data Sup porting Code Source(s) Document(s ) Sodium 134 mmol/L 137 - Below low Sodium, [facility] [Moles/volume] 145 normal Serum Health in Serum or mmol/L System Plasma Potassium 4.1 mmol/L 3.6 - Normal (applies Potassium, [facility] [Mass/volume] 5.0 to non-numeric Serum Health in Serum or mmol/L results) System Plasma Chloride 100 mmol/L 98 - Normal (applies Chloride, [facility] [Moles/volume] 107 to non-numeric Serum Health in Serum or mmol/L results) System Plasma Carbon dioxide, 27.0 mmol/L 22.0 - Normal (applies CO2, Serum Ubal[facility] grace total 30.0 to non-numeric Health [Moles/volume] mmol/L results) System in Serum or Plasma Total Protein 8.4 mg/dl 6.3 - Above high Total [facility] 8.2 normal Protein Health mg/dl System Glucose 198 mg/dL 65 - Above high Glucose, [facility] [Mass/volume] 105 normal Serum Health in Serum or mg/dL System Plasma Urea nitrogen 9 mg/dl 7 - 18 Normal (applies Blood Urea [facility] [Mass/volume] mg/dl to non-numeric Nitrogen, Health in Serum or results) Serum System Plasma Creatinine 0.80 mg/dl 0.70 - Normal (applies Creatinine, [facility] [Mass/volume] 1.20 to non-numeric Serum Health in Serum or mg/dl results) System Plasma Alkaline 118 {IU/L} 38 - Normal (applies Alkaline [facility] phosphatase 126 to non-numeric Phosphatase, Health isoenzymes IU/L results) Serum System [Enzymatic activity/volume ] in Serum or Plasma by Heat stability Bilirubin.total 0.3 mg/dl 0.2 - Normal (applies Bilirubin, [facility] [Mass/volume] 1.3 to non-numeric Serum Total Health in Serum or mg/dl results) System Plasma Aspartate 35 {IU/L} 5 - 40 Normal (applies Aspartate [facility] aminotransferas IU/L to non-numeric Transaminase Health e [Enzymatic results) , Serum System activity/volume ] in Serum or Plasma by With P-5'-P Albumin 3.9 {gm/dl} 3.9 - Normal (applies Albumin, [facility] [Mass/volume] 5.0 to non-numeric Serum Health in Serum or gm/dl results) System Plasma I. Phosphorus 3.5 mg/dl 2.5 - Normal (applies I. [facility] 4.5 to non-numeric Phosphorus Health mg/dl results) System Alanine 21 {IU/L} 7 - 56 Normal (applies Alanine [facility] aminotransferas IU/L to non-numeric Aminotransfe Health e [Enzymatic results) rase, Serum System activity/volume ] in Serum or Plasma Calcium 9.1 mg/dl 8.4 - Normal (applies Calcium, [facility] [Mass/volume] 10.2 to non-numeric Total Serum Health in Serum or mg/dl results) System Plasma A/G Ratio 0.87 Normal (applies A/G Ratio [facility] to non-numeric Health results) System Urate 6.5 mg/dl 2.5 - Normal (applies Uric Acid, [facility] [Mass/volume] 7.5 to non-numeric Serum Health in Serum or mg/dl results) System Plasma Anion gap in 7.00 mmol/L 8.00 - Below low Anion Gap [facility] Serum or Plasma 12.00 normal Health mmol/L System Glomerular Greater than Normal (applies GFR [facility] filtration 60 eGFR will to non-numeric Health rate/1.73 sq provide results) System M.predicted clinicians [Volume with a more Rate/Area] in accurate Serum or Plasma indicator of by renal function Creatinine-base then the serum d formula creatinine. (CKD-EPI) The eGFR is automatically calculated from an empiric formula (endorsed by the [employer]) which incorporates age, sex, and race.Clinician s may notice surprisingly low GFR's with serum creatinine values within normal range- particularly in elderly women (with low muscle mass).In the hospital setting, the eGFR should add an element of safety in drug dosing, in assessing the risk of IV contrast administration , and in assessing vascular risk.The NKF staging system is as follows:Normal : eGFR >90 with no kidney markersStage 1: eGFR >90 with kidney markers*Stage 2: eGFR 60-89Stage 3: eGFR 30-59Stage 4: eGFR 15-29Stage 5: eGFR <15 (usually requiring dialysis)* ers include: Proteinuria, Hematuria, abnormal imaging-studie s, or other blood or urine test abnormalities ID Date Data Source [id number] 05/03/2011 11:38:34 AM EST [facility] Name Value Range Interpretation Description Data Sup porting Code Source(s) Document(s ) Triglyceride 93 mg/dl 35 - 135 Normal (applies Triglycerides [facility] [Mass/volume] mg/dl to non-numeric , Serum Health in Serum or results) System Plasma Optimal = < 100 mg/dLBoderline High = 15 0 - 199 mg/dLHigh = 200 - 499 mg/dLVery High = > 500 mg/dL Cholesterol 187 mg/dl "." mg/dl Above high Cholesterol, [facility] [Mass/volume] in normal Serum Health System Serum or Plasma <200 mg/dL = Flctgtlib468 - 239 md/dL = Borderline>240 mg/dL = High Risk Cholesterol in HDL 55.0 mg/dL 32.0 - Normal (applies HDL Choleste rol, [facility] [Mass/volume] in 75.0 mg/dL to non-numeric Serum Health System Serum or Plasma results) Cholesterol in LDL 113.4 Normal (applies Low Density [facility] [Mass/volume] in mg/dL to non-numeric Lipoprotein, Healt h System Serum or Plasma results) Calculated OPTIMAL: LESS THAN 100 mg/dLNEAR OPTIMAL : 100 - 129 mg/dLBODERLINE HIGH: 130 - 150 mg/dL Cholesterol in VLDL 18.6 Normal (applies to VLDL, Serum [facility] [Mass/volume] in non-numeric System Serum or Plasma results) CHD Risk 3.40 2.40 - Normal (applies to CHD Risk [facility] 5.30 non-numeric System results) ID Date Data Source [id number] 01/12/2011 09:00:00 AM EDT [facility] System Name Value Range Interpretation Description Data Sup porting Code Source(s) Document(s ) Cocaine Qual, Negative Normal (applies Cocaine Qual, [facility] Urine. to non-numeric Urine. Health results) System Amphetamine Negative Normal (applies Amphetamine [facility] Qualitative, to non-numeric Qualitative, Health Urine results) Urine System Phencyclidine Negative Normal (applies Phencyclidine [facility] PCP to non-numeric PCP Health Qualitative, results) Qualitative, System Urine. Urine. Opiates Negative Normal (applies Opiates [facility] Quantitative, to non-numeric Quantitative, Health Urine. results) Urine. System THC. Negative Normal (applies THC. [facility] to non-numeric Health results) System ID Date Data Source [id number] 01/04/2011 06:30:00 AM EDT [facility] System Name Value Range Interpretation Description Data Sup porting Code Source(s) Document(s ) Leukocytes 5.0 4.8 - Normal (applies WBC Count [facility] [#/volume] in {10\\S\\3_ 10.8 to non-numeric Health Unspecified uL} 10\\S\\3 results) System specimen by uL Automated count Erythrocytes 4.12 3.80 - Normal (applies RBC Count [facility] [#/volume] in {10\\S\\6_ 5.20 to non-numeric Health Blood by uL} 10\\S\\6 results) System Automated count uL Hemoglobin 13.1 12.0 - Normal (applies Hemoglobin, [facility] [Mass/volume] in {gm/dL} 16.0 to non-numeric Whole Blood Health Blood gm/dL results) System Hematocrit 38.7 % 36.0 - Normal (applies Hematocrit, [facility] [Volume 46.0 % to non-numeric Whole Blood Health Fraction] of results) System Blood Erythrocyte mean 93.9 fl 80.0 - Normal (applies MCV [facility] corpuscular 100.0 to non-numeric Health volume [Entitic fl results) System volume] by Automated count Erythrocyte mean 31.8 pg 26.0 - Normal (applies MCH [facility] corpuscular 34.0 pg to non-numeric Health hemoglobin results) System [Entitic mass] by Automated count Erythrocyte mean 33.9 33.0 - Normal (applies MCHC [facility] corpuscular {gm/dL} 37.0 to non-numeric Health hemoglobin gm/dL results) System concentration [Mass/volume] by Automated count Erythrocyte 12.0 % 11.5 - Normal (applies RDW [facility] distribution 14.5 % to non-numeric Health width [Entitic results) System volume] by Automated count Platelets 233 130 - Normal (applies Platelet [facility] [#/volume] in {10\\S\\3_ 400 to non-numeric Count Health Plasma by uL} 10\\S\\3 results) System Automated count uL Platelet mean 10.1 fl 7.4 - Normal (applies MPV [facility] volume [Entitic 10.4 fl to non-numeric Health volume] in Blood results) System by Automated count ID Date Data Source [id number] 01/04/2011 06:30:00 AM EDT [facility] System Name Value Range Interpretation Description Data Sup porting Code Source(s) Document(s ) Sodium 138 137 - Normal (applies Sodium, Serum [facility] [Moles/volume mmol/L 145 to non-numeric Health ] in Serum or mmol/L results) System Plasma Potassium 4.0 3.6 - Normal (applies Potassium, [facility] [Mass/volume] mmol/L 5.0 to non-numeric Serum Health in Serum or mmol/L results) System Plasma Chloride 99 98 - 107 Normal (applies Chloride, [facility] [Moles/volume mmol/L mmol/L to non-numeric Serum Health ] in Serum or results) System Plasma Carbon 30.0 22.0 - Normal (applies CO2, Serum [facility] dioxide, mmol/L 30.0 to non-numeric Health total mmol/L results) System [Moles/volume ] in Serum or Plasma Glucose 64 mg/dL 65 - 105 Below low normal Glucose, Serum [facility] [Mass/volume] mg/dL Health in Serum or System Plasma Urea nitrogen 7 mg/dl 7 - 18 Normal (applies Blood Urea [facility] [Mass/volume] mg/dl to non-numeric Nitrogen, Health in Serum or results) Serum System Plasma Creatinine 0.70 0.70 - Normal (applies Creatinine, [facility] [Mass/volume] mg/dl 1.20 to non-numeric Serum Health in Serum or mg/dl results) System Plasma Calcium 9.6 8.4 - Normal (applies Calcium, Total [facility] [Mass/volume] mg/dl 10.2 to non-numeric Serum Health in Serum or mg/dl results) System Plasma Anion gap in 9.00 8.00 - Normal (applies Anion Gap [facility] Serum or mmol/L 12.00 to non-numeric Health Plasma mmol/L results) System ID Date Data Source [id number] 01/03/2011 06:48:00 AM EDT [facility] Name Value Range Interpretation Description Data Sup porting Code Source(s) Document(s ) Leukocytes 4.2 4.8 - Below low normal WBC Count [facility] [#/volume] in {10\\S\\3_ 10.8 Health Unspecified uL} 10\\S\\3 System specimen by uL Automated count Erythrocytes 4.07 3.80 - Normal (applies RBC Count [facility] [#/volume] in {10\\S\\6_ 5.20 to non-numeric Health Blood by uL} 10\\S\\6 results) System Automated count uL Hematocrit 38.3 % 36.0 - Normal (applies Hematocrit, [facility] [Volume 46.0 % to non-numeric Whole Blood Health Fraction] of results) System Blood Hemoglobin 13.0 12.0 - Normal (applies Hemoglobin, [facility] [Mass/volume] in {gm/dL} 16.0 to non-numeric Whole Blood Health Blood gm/dL results) System Erythrocyte mean 94.1 fl 80.0 - Normal (applies MCV [facility] corpuscular 100.0 to non-numeric Health volume [Entitic fl results) System volume] by Automated count Erythrocyte mean 31.9 pg 26.0 - Normal (applies MCH [facility] corpuscular 34.0 pg to non-numeric Health hemoglobin results) System [Entitic mass] by Automated count Erythrocyte mean 33.9 33.0 - Normal (applies MCHC [facility] corpuscular {gm/dL} 37.0 to non-numeric Health hemoglobin gm/dL results) System concentration [Mass/volume] by Automated count Erythrocyte 12.1 % 11.5 - Normal (applies RDW [facility] distribution 14.5 % to non-numeric Health width [Entitic results) System volume] by Automated count Platelets 233 130 - Normal (applies Platelet [facility] [#/volume] in {10\\S\\3_ 400 to non-numeric Count Health Plasma by uL} 10\\S\\3 results) System Automated count uL Platelet mean 9.8 fl 7.4 - Normal (applies MPV [facility] volume [Entitic 10.4 fl to non-numeric Health volume] in Blood results) System by Automated count ID Date Data Source [id number] 01/03/2011 06:48:00 AM EDT [facility] System Name Value Range Interpretation Description Data Sup porting Code Source(s) Document(s ) Sodium 139 137 - Normal (applies Sodium, Serum [facility] [Moles/volum mmol/L 145 to non-numeric Health Syste m e] in Serum mmol/L results) or Plasma Potassium 4.1 3.6 - Normal (applies Potassium, [facility] [Mass/volume mmol/L 5.0 to non-numeric Serum Health Syste m ] in Serum mmol/L results) or Plasma Chloride 99 98 - 107 Normal (applies Chloride, [facility] [Moles/volum mmol/L mmol/L to non-numeric Serum Health Syste m e] in Serum results) or Plasma Carbon 30.0 22.0 - Normal (applies CO2, Serum [facility] dioxide, mmol/L 30.0 to non-numeric Health System total mmol/L results) [Moles/volum e] in Serum or Plasma Urea 8 mg/dl 7 - 18 Normal (applies Blood Urea [facility] nitrogen mg/dl to non-numeric Nitrogen, Health System [Mass/volume results) Serum ] in Serum or Plasma Glucose 67 mg/dL 65 - 105 Normal (applies Glucose, Serum [facility] [Mass/volume mg/dL to non-numeric Health Syste m ] in Serum results) or Plasma OK Creatinine 0.70 mg/dl 0.70 - Normal (applies Creatinine, [facility] [Mass/volume] in 1.20 mg/dl to non-numeric Serum Health System Serum or Plasma results) Calcium 9.8 mg/dl 8.4 - 10.2 Normal (applies Calcium, Total [facility] [Mass/volume] in mg/dl to non-numeric Serum Health S ystem Serum or Plasma results) Anion gap in Serum 10.00 8.00 - Normal (applies Anion Gap [facility] or Plasma mmol/L 12.00 to non-numeric Health System mmol/L results) ID Date Data Source [id number] 01/02/2011 06:45:00 AM EDT [facility] System Name Value Range Interpretation Description Data Sup porting Code Source(s) Document(s ) Cancer Ag 11.00 0 - 37 Normal (applies Cancer [facility] 19-9 U/mL U/mL to non-numeric Antigen, GI Ca [facility] Sys tem [Units/vol results) 19-9 ume] in Serum or Plasma ID Date Data Source [id number] 01/01/2011 06:45:00 AM EDT [facility] System Name Value Range Interpretation Description Data Sup porting Code Source(s) Document(s ) Leukocytes 4.6 4.8 - Below low normal WBC Count [facility] [#/volume] in {10\\S\\3_ 10.8 Health Unspecified uL} 10\\S\\3 System specimen by uL Automated count Erythrocytes 4.07 3.80 - Normal (applies RBC Count [facility] [#/volume] in {10\\S\\6_ 5.20 to non-numeric Health Blood by uL} 10\\S\\6 results) System Automated count uL Hemoglobin 13.0 12.0 - Normal (applies Hemoglobin, [facility] [Mass/volume] in {gm/dL} 16.0 to non-numeric Whole Blood Health Blood gm/dL results) System Hematocrit 37.7 % 36.0 - Normal (applies Hematocrit, [facility] [Volume 46.0 % to non-numeric Whole Blood Health Fraction] of results) System Blood Erythrocyte mean 92.6 fl 80.0 - Normal (applies MCV [facility] corpuscular 100.0 to non-numeric Health volume [Entitic fl results) System volume] by Automated count Erythrocyte mean 31.9 pg 26.0 - Normal (applies MCH [facility] corpuscular 34.0 pg to non-numeric Health hemoglobin results) System [Entitic mass] by Automated count Erythrocyte mean 35.1 33.0 - Normal (applies MCHC [facility] corpuscular {gm/dL} 37.0 to non-numeric Health hemoglobin gm/dL results) System concentration [Mass/volume] by Automated count Erythrocyte 12.2 % 11.5 - Normal (applies RDW [facility] distribution 14.5 % to non-numeric Health width [Entitic results) System volume] by Automated count Platelets 245 130 - Normal (applies Platelet [facility] [#/volume] in {10\\S\\3_ 400 to non-numeric Count Health Plasma by uL} 10\\S\\3 results) System Automated count uL Platelet mean 9.8 fl 7.4 - Normal (applies MPV [facility] volume [Entitic 10.4 fl to non-numeric Health volume] in Blood results) System by Automated count ID Date Data Source [id number] 01/01/2011 06:45:00 AM EDT [facility] Name Value Range Interpretation Description Data Sup porting Code Source(s) Document(s ) Sodium 140 137 - Normal (applies Sodium, Serum [facility] [Moles/volu mmol/L 145 to non-numeric Health System me] in mmol/L results) Serum or Plasma Chloride 100 98 - 107 Normal (applies Chloride, [facility] [Moles/volu mmol/L mmol/L to non-numeric Serum Health System me] in results) Serum or Plasma ok Potassium 4.1 mmol/L 3.6 - 5.0 Normal (applies Potassium, [facility] [Mass/volume] in mmol/L to non-numeric Serum Health [facility] Serum or Plasma results) Carbon dioxide, 29.0 mmol/L 22.0 - 30.0 Normal (applies CO2, Serum [facility] total mmol/L to non-numeric Health System [Moles/volume] in results) Serum or Plasma ok Glucose 118 mg/dL 65 - 105 Above high Glucose, Serum [facility] [Mass/volume] in mg/dL normal Health System Serum or Plasma ok Urea nitrogen 5 mg/dl 7 - 18 Below low Blood Urea [facility] [Mass/volume] in mg/dl normal Nitrogen, Serum Health System Serum or Plasma Creatinine 0.70 mg/dl 0.70 - 1.20 Normal Creatinine, [facility] [Mass/volume] in mg/dl (applies to Serum [facility] Syst Serum or Plasma non-numeric results) Calcium 9.7 mg/dl 8.4 - 10.2 Normal Calcium, Total [facility] [Mass/volume] in mg/dl (applies to Serum [facility] Syst Serum or Plasma non-numeric results) Anion gap in Serum 11.00 8.00 - Normal Anion Gap [facility] or Plasma mmol/L 12.00 (applies to Health System mmol/L non-numeric results) ID Date Data Source [id number] 12/31/2010 10:30:00 AM EDT [facility] Name Value Range Interpretation Description Data Sup porting Code Source(s) Document(s ) Cholesterol 158 "." Above high normal Cholesterol, [facility] [Mass/volume] mg/dl mg/dl Serum Health in Serum or System Plasma <200 mg/dL = [id number] - 239 md/dL = Borderline>240 mg/dL = High Risk Triglyceride 56 mg/dl 35 - 135 Normal (applies Triglycerides, [facility] [Mass/volume] in mg/dl to non-numeric Serum [facility] Serum or Plasma results) Optimal = < 100 mg/dLBoderline High = 15 0 - 199 mg/dLHigh = 200 - 499 mg/dLVery High = > 500 mg/dL Cholesterol in HDL 43.0 mg/dL 32.0 - Normal (applies HDL Choleste rol, [facility] [Mass/volume] in 75.0 mg/dL to non-numeric Serum Health System Serum or Plasma results) Cholesterol in 11.20 Normal (applies VLDL, Serum [facility] VLDL [Mass/volume] to non-numeric Health System in Serum or Plasma results) Cholesterol in LDL 103.8 Normal (applies Low Density [facility] [Mass/volume] in mg/dL to non-numeric [facility] Plasma results) Calculated OPTIMAL: LESS THAN 100 mg/dLNEAR OPTIMAL : 100 - 129 mg/dLBODERLINE HIGH: 130 - 150 mg/dL CHD Risk 3.67 2.40 - 5.30 Normal (app[facility] non-numeric results) System ID Date Data Source [id number] 12/31/2010 10:30:00 AM EDT [facility] Name Value Range Interpretation Code Description Data Nyla rce(s) Supporting Document(s ) HbA1C 5.5 % 4.6 - 6.2 % Normal ([facility] results) ID Date Data Source [id number] 12/30/2010 07:00:00 AM EDT [facility] System Name Value Range Interpretation Description Data Sup porting Code Source(s) Document(s ) Leukocytes 4.2 4.8 - Below low normal WBC Count [facility] [#/volume] in {10\\S\\3_ 10.8 Health Unspecified uL} 10\\S\\3 System specimen by uL Automated count Erythrocytes 4.11 3.80 - Normal (applies RBC Count [facility] [#/volume] in {10\\S\\6_ 5.20 to non-numeric Health Blood by uL} 10\\S\\6 results) System Automated count uL Hematocrit 41.8 % 36.0 - Normal (applies Hematocrit, [facility] [Volume 46.0 % to non-numeric Whole Blood Health Fraction] of results) System Blood Hemoglobin 13.3 12.0 - Normal (applies Hemoglobin, [facility] [Mass/volume] {gm/dL} 16.0 to non-numeric Whole Blood Health in Blood gm/dL results) System Erythrocyte 101.7 fl 80.0 - Above high MCV [facility] mean 100.0 fl normal Health corpuscular System volume [Entitic volume] by Automated count yes Erythrocyte mean 31.8 {gm/dL} 33.0 - Below low MCHC [facility] corpuscular 37.0 gm/dL normal Health System hemoglobin concentration [Mass/volume] by Automated count Erythrocyte mean 32.4 pg 26.0 - Normal MCH [facility] corpuscular 34.0 pg (applies to Health System hemoglobin [Entitic non-numeric mass] by Automated results) count Platelets 268 130 - 400 Normal Platelet Count [facility] [#/volume] in {10\\S\\3_uL} 10\\S\\3 uL (applies to Health Syste m Plasma by Automated non-numeric count results) Erythrocyte 12.5 % 11.5 - Normal RDW [facility] distribution width 14.5 % (applies to Health Sy stem [Entitic volume] by non-numeric Automated count results) Platelet mean 11.3 fl 7.4 - 10.4 Above high MPV [facility] volume [Entitic fl normal Health System volume] in Blood by Automated count Corrected WBC 4.1 Normal Corrected WBC [facility] {10\\S\\3_uL} (applies to Health System non-numeric results) Eosinophils 0.2 {10\\S\\3} Normal Eosinophil [facility] [#/volume] in Blood (applies to Count Blood Health System non-numeric results) Monocytes 0.3 Normal Monocyte Count [facility] [#/volume] in Blood {10\\S\\3_uL} (applies to Health System by Manual count non-numeric results) Neutrophils 2.4 Normal Absolute [facility] [#/volume] in Body {10\\S\\3_uL} (applies to Neutrophil Health System fluid non-numeric Count results) Basophils 0.01 Normal Basophil Count [facility] [#/volume] in Blood {10\\S\\3_uL} (applies to Health System by Automated count non-numeric results) Neutrophils/100 57.4 % Normal Neutrophil % [facility] leukocytes in Blood ([facility] non-numeric results) Lymphocyte Absolute 1.4 Normal Lymphocyte [facility] {10\\S\\3_uL} (applies to Absolute Health System non-numeric results) Monocytes/100 7 % 6 - 9 % Normal Monocyte % [facility] leukocytes in Blood (applies to [facility] non-[facility] results) Eosinophils/100 4 % 1 - 3 % Above high Eosinophil % [facility] leukocytes in normal Health System Unspecified specimen Lymphocytes 32 % 21 - 51 % Normal Lymphocyte % [facility] [#/volume] in Blood (applies to [facility] yste by Automated count non-numeric results) Basophils/100 0 % 0 - 1 % Normal Basophil % [facility] leukocytes in (applies to Health System Unspecified non-numeric specimen by Manual results) count ID Date Data Source [id number] 12/30/2010 07:00:00 AM EDT [facility] Name Value Range Interpretation Description Data Sup porting Code Source(s) Document(s ) Sodium 142 137 - Normal (applies Sodium, Serum [facility] [Moles/vol mmol/L 145 to non-numeric Health System ume] in mmol/L results) Serum or Plasma okPreviously released as 140-(1) on 01/01/2011, 9:41 AM by - not changed(1) - ok Potassium 3.8 mmol/L 3.6 - 5.0 Normal (applies Potassium, [facility] [Mass/volume] in mmol/L to non-numeric Serum [facility] yste Serum or Plasma results) OK/CLEAR SAMPLEPreviously released as 3.7-(2) on 01/01/2011, 9:41 AM by - same(2) - OK/CLEAR SAMPLE Chloride 106 mmol/L 98 - 107 Normal (applies Chloride, [facility] [Moles/volume] in mmol/L to non-numeric Serum [facility] Serum or Plasma results) okPreviously released as 105-(3) on 01/01/2011, 9:41 AM by - not changed(3) - ok Carbon dioxide, 17.0 mmol/L 22.0 - 30.0 Below low CO2, Serum [facility] total [Moles/volume] mmol/L normal Health Sy stem in Serum or Plasma okPreviously released as 22.0-(4) on 01/01/2011, 9:41 AM by - not changed(4) - ok Urea nitrogen 5 mg/dl 7 - 18 Below low Blood Urea [facility] [Mass/volume] in mg/dl normal Nitrogen, Serum Health System Serum or Plasma Glucose 81 mg/dL 65 - 105 Normal Glucose, Serum [facility] [Mass/volume] in mg/dL (applies to Health [facility] em Serum or Plasma non-numeric results) ok Creatinine 0.70 mg/dl 0.70 - Normal (applies Creatinine, [facility] [Mass/volume] in 1.20 mg/dl to non-numeric Serum Health System Serum or Plasma results) Previously released as 0.72 on , 9:49 [place] [id number] - same Anion gap in 19.00 mmol/L 8.00 - 12.00 Above high Anion Gap [facility] Serum or mmol/L normal System Plasma Previously released as 17.00 on , 10:16 [place] [id number] -Previously released as 18.00 on 01/01/2011, 1 0:15 AM [place] [id number] -Previously released as 13.00 on 12/31/2010, 9:50 AM [place] [id number] - Calcium 9.2 mg/dl 8.4 - 10.2 Normal (applies Calcium, [facility] [Mass/volume] in mg/dl to non-numeric Total Serum Health System Serum or Plasma results) Previously released as 8.7 on , 9:49 [place] [id number] - not changed ID Date Data Source [id number] 12/30/2010 07:00:00 AM EDT [facility] System Name Value Range Interpretation Description Data Sup porting Code Source(s) Document(s ) Magnesium 1.8 1.7 - Normal (applies Magnesium, [facility] [Mass/volume {mEq/L} 2.2 to non-numeric Serum Health Syste m ] in Serum mEq/L results) or Plasma Previously released as 1.7 on , 9:50 AM [place] [id number] - same ID Date Data Source [id number] 12/30/2010 07:00:00 AM EDSebastian [facility]ales alth System Name Value Range Interpretation Description Data Sup porting Code Source(s) Document(s ) Phosphate 4.30 Normal (applies to Phosphorus, [facility] [Mass/volume] non-numeric Serum Health System in Serum or results) Plasma ID Date Data Source [id number] 12/30/2010 01:20:00 AM EDSebastian [facility]onsales al[facility] System Name Value Range Interpretation Description Data Sup porting Code Source(s) Document(s ) Leukocytes 4.1 4.8 - Below low normal WBC Count [facility] [#/volume] in {10\\S\\3_ 10.8 Health Unspecified uL} 10\\S\\3 System specimen by uL Automated count Erythrocytes 4.09 3.80 - Normal (applies RBC Count [facility] [#/volume] in {10\\S\\6_ 5.20 to non-numeric Health Blood by uL} 10\\S\\6 results) System Automated count uL Hemoglobin 13.3 12.0 - Normal (applies Hemoglobin, [facility] [Mass/volume] in {gm/dL} 16.0 to non-numeric Whole Blood Health Blood gm/dL results) System Hematocrit 37.7 % 36.0 - Normal (applies Hematocrit, [facility] [Volume 46.0 % to non-numeric Whole Blood Health Fraction] of results) System Blood Erythrocyte mean 92.2 fl 80.0 - Normal (applies MCV [facility] corpuscular 100.0 to non-numeric Health volume [Entitic fl results) System volume] by Automated count Erythrocyte mean 35.3 33.0 - Normal (applies MCHC [facility] corpuscular {gm/dL} 37.0 to non-numeric Health hemoglobin gm/dL results) System concentration [Mass/volume] by Automated count Erythrocyte mean 32.5 pg 26.0 - Normal (applies MCH [place] corpuscular 34.0 pg to non-numeric Health hemoglobin results) System [Entitic mass] by Automated count Platelets 253 130 - Normal (applies Platelet [facility] [#/volume] in {10\\S\\3_ 400 to non-numeric Count Health Plasma by uL} 10\\S\\3 results) System Automated count uL Erythrocyte 12.0 % 11.5 - Normal (applies RDW [facility] distribution 14.5 % to non-numeric Health width [Entitic results) System volume] by Automated count Eosinophils 0.1 Normal (applies Eosinophil [facility] [#/volume] in {10\\S\\3} to non-numeric Count Blood Health Blood results) System Platelet mean 10.1 fl 7.4 - Normal (applies MPV [facility] volume [Entitic 10.4 fl to non-numeric Health volume] in Blood results) System by Automated count Monocytes 0.3 Normal (applies Monocyte [facility] [#/volume] in {10\\S\\3_ to non-numeric Count Health Blood by Manual uL} results) System count Basophils 0.01 Normal (applies Basophil [facility] [#/volume] in {10\\S\\3_ to non-numeric Count Health Blood by uL} results) System Automated count Neutrophils 2.3 Normal (applies Absolute [facility] [#/volume] in {10\\S\\3_ to non-numeric Neutrophil Health Body fluid uL} results) Count System Lymphocyte 1.4 Normal (applies Lymphocyte [facility] Absolute {10\\S\\3_ to non-numeric Absolute Health uL} results) System Monocytes/100 7.3 % 6.0 - Normal (applies Monocyte % [facility] [facility] leukocytes in 9.0 % to non-numeric Health Blood results) System Neutrophils/100 56.6 % Normal (applies Neutrophil % [facility] leukocytes in to non-numeric Health Blood by results) System Automated count Lymphocytes 33.7 % 21.0 - Normal (applies Lymphocyte % [place] [#/volume] in 51.0 % to non-numeric Health Blood by results) System Automated count Basophils/100 0.2 % 0.0 - Normal (applies Basophil % [facility] [facility] leukocytes in 1.0 % to non-numeric Health Unspecified results) System specimen by Manual count Eosinophils/100 2.2 % 1.0 - Normal (applies Eosinophil % U[facility] grace leukocytes in 3.0 % to non-numeric Health Unspecified results) System specimen ID Date Data Source [id number] 12/30/2010 01:20:00 AM EDT [facility] Name Value Range Interpretation Description Data Sup porting Code Source(s) Document(s ) Sodium 132 137 - Below low normal Sodium, Serum [facility] [Moles/volume mmol/L 145 Health ] in Serum or mmol/L System Plasma Chloride 95 98 - 107 Below low normal Chloride, [facility] [Moles/volume mmol/L mmol/L Serum Health ] in Serum or System Plasma Potassium 6.3 3.6 - Above upper panic Potassium, [facility] [Mass/volume] mmol/L 5.0 limits Serum Health in Serum or mmol/L System Plasma Carbon 26.0 22.0 - Normal (applies CO2, Serum [facility] dioxide, mmol/L 30.0 to non-numeric Health total mmol/L results) System [Moles/volume ] in Serum or Plasma Glucose 106 65 - 105 Above high normal Glucose, Serum [place] [Mass/volume] mg/dL mg/dL Health in Serum or System Plasma Urea nitrogen 11 mg/dl 7 - 18 Normal (applies Blood Urea [place] [facility] [Mass/volume] mg/dl to non-numeric Nitrogen, Health in Serum or results) Serum System Plasma Creatinine 0.90 0.70 - Normal (applies Creatinine, [facility] [Mass/volume] mg/dl 1.20 to non-numeric Serum Health in Serum or mg/dl results) System Plasma Calcium 9.7 8.4 - Normal (applies Calcium, Total [place] [Mass/volume] mg/dl 10.2 to non-numeric Serum Health in Serum or mg/dl results) System Plasma Anion gap in 11.00 8.00 - Normal (applies Anion Gap [facility] Serum or mmol/L 12.00 to non-numeric Health Plasma mmol/L results) System ID Date Data Source [id number] 12/30/2010 01:20:00 AM EDT [facility] System Name Value Range Interpretation Description Data Sup porting Code Source(s) Document(s ) Albumin 4.3 3.9 - Normal (applies Albumin, [facility] [Mass/volume] in {gm/dl} 5.0 to non-numeric Serum Health Serum or Plasma gm/dl results) System Aspartate 52 5 - 40 Above high Aspartate [facility] aminotransferase {IU/L} IU/L normal Transaminase, Health [Enzymatic Serum System activity/volume] in Serum or Plasma by With P-5'-P Bilirubin.total 0.3 0.2 - Normal (applies Bilirubin, [place] [Mass/volume] in mg/dl 1.3 to non-numeric Serum Total Health Serum or Plasma mg/dl results) System Alanine 21 7 - 56 Normal (applies Alanine [facility] aminotransferase {IU/L} IU/L to non-numeric Aminotransfer Heal th [Enzymatic results) ase, Serum System activity/volume] in Serum or Plasma Alkaline 110 38 - Normal (applies Alkaline [facility] phosphatase {IU/L} 126 to non-numeric Phosphatase, Health isoenzymes IU/L results) Serum System [Enzymatic activity/volume] in Serum or Plasma by Heat stability Total Protein 9.7 6.3 - Above high Total Protein [facility] mg/dl 8.2 normal Health mg/dl System Direct Bilirubin 0.1 0.0 - Normal (applies Direct [place] mg/dl 0.4 to non-numeric Bilirubin Health mg/dl results) System ID Date Data Source [id number] 12/30/2010 01:20:00 AM EDT [facility] System Name Value Range Interpretation Description Data Source(s ) Supporting Code Document(s ) Lipase 6 U/L 8 - 78 Below low normal Lipase, Serum [facility] [Enzymatic U/L Health System activity/v olume] in Serum or Plasma ID Date Data Source [id number] 12/30/2010 01:20:00 AM EDT [facility] System Name Value Range Interpretation Description Data Sup porting Code Source(s) Document(s ) Amylase 85 30 - 110 Normal (applies Amylase, Serum [facility] [Enzymatic {IU/L} IU/L to non-numeric Health System activity/vo results) lume] in Serum or Plasma Procedure Social History Code Duration Value Status Description Data Source(s ) Smoking 11/18/2019 Daily Smoker completed Daily Smoker [facility] 06:27:00 AM EDT Medical C enter Smoking 11/18/2019 Daily Smoker completed Daily Smoker [facility] 05:28:00 AM EDT Medical C enter Smoking 10/03/2019 Daily Smoker completed Daily Smoker [facility] 10:14:00 AM EDT Medical C enter Smoking 10/03/2019 Daily Smoker completed Daily Smoker [facility] 09:25:00 AM EDT Medical C enter Smoking 09/18/2019 Denies Ever completed Denies Ever Smoked [facility] 02:19:00 PM EDT Smoked Medical C enter Smoking 03/28/2019 Denies Ever completed Denies Ever Smoked [facility] 06:06:00 PM EST Smoked Medical C enter Smoking 03/28/2019 Denies Ever completed Denies Ever Smoked [facility] 05:15:00 PM EST Smoked Medical C enter Smoking 03/28/2019 Denies Ever completed Denies Ever Smoked [facility] 04:57:00 PM EST Smoked Medical C enter Smoking 03/02/2019 Daily Smoker completed Daily Smoker [facility] 06:45:00 PM EST Medical C enter Smoking 03/02/2019 Daily Smoker completed Daily Smoker [facility] 06:19:00 PM EST Medical C enter Smoking 03/02/2019 Daily Smoker completed Daily Smoker [facility] 06:13:00 PM EST Medical C enter Smoking 10/11/2018 Daily Smoker completed Daily Smoker [facility] 05:05:00 PM EDT Medical C enter Smoking 10/11/2018 Daily Smoker completed Daily Smoker [facility] 04:29:00 PM EDT Medical C enter Smoking 10/11/2018 Daily Smoker completed Daily Smoker [facility] 04:17:00 PM EDT Medical C enter Smoking 02/04/2018 Daily Smoker completed Daily Smoker [facility] 08:13:00 PM EST Medical C enter Smoking 02/03/2018 [id number] completed Daily Smoker [facility] 12:03:00 PM EST Medical C enter Smoking 02/03/2018 [id number] completed Daily Smoker [facility] 10:53:00 AM EST Medical C enter Smoking 02/03/2018 [id number] completed Daily Smoker [facility] 09:38:00 AM EST Medical C enter Smoking 02/03/2018 [id number] completed Smoker, Status Not [facility] 06:00:00 AM EST Known Medical C enter Vital Signs ID Date Data Source UNK Name Value Range Interpretation Code Description Data Source(s) Body temperature 37.417760 37.600525 [facility] Respiratory rate 18 /min 18 /min [facility] Oxygen saturation 100 % 100 % [facility] Arterial blood [facility] by Pulse oximetry Heart rate 78 /min 78 /min [facility] Diastolic blood 82 mm[Hg] 82 mm[Hg] [facility] Systolic blood 145 mm[Hg] 145 mm[Hg] [facility] Body temperature 36.242528 36.657922 [facility] Respiratory rate 19 /min 19 /min [facility] Oxygen saturation 100 % 100 % [facility] Arterial blood [facility] by Pulse oximetry Heart rate 108 /min 108 /min [facility] Diastolic blood 88 mm[Hg] 88 mm[Hg] [facility] pressure [facility] Systolic blood 140 mm[Hg] 140 mm[Hg] [facility] Diastolic blood 73 mm[Hg] 73 mm[Hg] [facility] Systolic blood 127 mm[Hg] 127 mm[Hg] [facility] Body mass index 20.9 kg/m2 20.9 kg/m2 [facility] (BMI) [Ratio] [facility] Body weight 58.803079 58.430357 kg [facility] hs Measured kg [facility] Center Body temperature 36.667761 36.196741 [facility] Respiratory rate 18 /min 18 /min [facility] Oxygen saturation 98 % 98 % [facility] Arterial blood [facility] by Pulse oximetry Heart rate 109 /min 109 /min [facility] Body height 167.816707 167.368990 cm [facility] Body temperature 36.669877 36.195232 [facility] Respiratory rate 17 /min 17 /min [facility] Oxygen saturation 98 % 98 % [facility] blood [facility] by Pulse oximetry Heart rate 80 /min 80 /min [facility] Diastolic blood 88 mm[Hg] 88 mm[Hg] [facility] Systolic blood 148 mm[Hg] 148 mm[Hg] [facility] Body temperature 36.072394 36.573322 [facility] Respiratory rate 17 /min 17 /min [facility] Oxygen saturation 97 % 97 % [facility] blood [facility] by Pulse oximetry Heart rate 78 /min 78 /min [facility] Diastolic blood 78 mm[Hg] 78 mm[Hg] [facility] Systolic blood 138 mm[Hg] 138 mm[Hg] [facility] Body temperature 37.903023 37.982075 [facility] Respiratory rate 18 /min 18 /min [facility] Oxygen saturation 97 % 97 % [facility] blood [facility] by Pulse oximetry Heart rate 82 /min 82 /min [facility] Diastolic blood 82 mm[Hg] 82 mm[Hg] [facility] Systolic blood 140 mm[Hg] 140 mm[Hg] [facility] Body weight 58.924419 58.762563 kg [facility] Body temperature 37.515351 37.438925 [facility] Respiratory rate 16 /min 16 /min [facility] Oxygen saturation 98 % 98 % [facility] blood [facility] by Pulse oximetry Heart rate 85 /min 85 /min [facility] Body height 167.424916 167.193144 cm [facility] Diastolic blood 89 mm[Hg] 89 mm[Hg] [facility] Systolic blood 148 mm[Hg] 148 mm[Hg] [facility] pressure [facility] Body mass index 20.9 kg/m2 20.9 kg/m2 [facility] (BMI) [Ratio] Medical [facility] ter Body temperature 36.066906 36.967027 [facility] Respiratory rate 18 /min 18 /min [facility] Oxygen saturation 99 % 99 % [facility] Arterial blood [facility] by Pulse oximetry Heart rate 85 /min 85 /min [facility] Diastolic blood 84 mm[Hg] 84 mm[Hg] [facility] Systolic blood 136 mm[Hg] 136 mm[Hg] [facility] Body temperature 36.159254 36.811922 [facility] Respiratory rate 20 /min 20 /min [facility] Oxygen saturation 98 % 98 % [facility] Arterial blood [facility] by Pulse oximetry Heart rate 107 /min 107 /min [facility] Diastolic blood 71 mm[Hg] 71 mm[Hg] [facility] Systolic blood 134 mm[Hg] 134 mm[Hg] [facility] Body temperature 36.665183 36.988607 [facility] Respiratory rate 17 /min 17 /min [facility] Oxygen saturation 98 % 98 % [facility] Arterial blood [facility] by Pulse oximetry Heart rate 78 /min 78 /min [facility] Diastolic blood 81 mm[Hg] 81 mm[Hg] [facility] Systolic blood 139 mm[Hg] 139 mm[Hg] [facility] Body weight 57.383941 57.481150 kg [facility] Measured kg [facility] [place] Body temperature 36.778199 36.956764 [facility] Respiratory rate 17 /min 17 /min [facility] Oxygen saturation 99 % 99 % [facility] blood [facility] by Pulse oximetry Heart rate 82 /min 82 /min [facility] Diastolic blood 90 mm[Hg] 90 mm[Hg] [facility] Systolic blood 157 mm[Hg] 157 mm[Hg] [facility] Body temperature 36.560898 36.950810 [facility] Respiratory rate 18 /min 18 /min [facility] Oxygen saturation 97 % 97 % [facility] by Pulse oximetry Heart rate 82 /min 82 /min [facility] Diastolic blood 89 mm[Hg] 89 mm[Hg] [facility] Systolic blood 157 mm[Hg] 157 mm[Hg] [facility] Body weight 54.594624 54.762525 kg [facility] Measured kg [facility] Body temperature 36.459508 36.950851 [facility] Respiratory rate 17 /min 17 /min [facility] Oxygen saturation 99 % 99 % [facility] by Pulse oximetry Heart rate 80 /min 80 /min [facility] Body height 154.822212 154.564837 cm [facility] Diastolic blood 80 mm[Hg] 80 mm[Hg] [facility] Systolic blood 154 mm[Hg] 154 mm[Hg] [facility] Body mass index 22.6 kg/m2 22.6 kg/m2 [facility] (BMI) [Ratio] Medical [facility] Body weight 56.693193 56.006536 kg [facility] Measured kg [facility] Body temperature 36.583135 36.323570 [facility] Respiratory rate 17 /min 17 /min [facility] Oxygen saturation 97 % 97 % [facility] by Pulse oximetry Heart rate 97 /min 97 /min [facility] Body height 170.492970 170.051388 cm [facility] Diastolic blood 72 mm[Hg] 72 mm[Hg] [facility] Systolic blood 118 mm[Hg] 118 mm[Hg] [facility] Body mass index 19.4 kg/m2 19.4 kg/m2 [facility] (BMI) [Ratio] Medical [facility] ter Body temperature 36.2 Fina 0 - 99.9 Below low normal 36.2 [facility] Body temperature 97.2 [degF] 0 - 200 Normal (applies to 97.2 [degF ] [facility] non-numeric [facility] results) Diastolic blood 77 mm[Hg] 0 - 999 Normal (applies to 77 mm[Hg] [facility] pressure non-numeric [facility] System results) Systolic blood 143 mm[Hg] 0 - 999 Above high normal 143 mm[Hg] [facility] Deprecated Oxygen 100 % 0 - 999 Normal (applies to 100 % [facility] saturation in non-numeric [facility] tem Capillary blood results) by Oximetry Respiratory rate 17 0 - 999 Normal (applies to 17 [facility] non-numeric Health System results) Heart rate 88 0 - 999 Normal (applies to 88 [facility] non-numeric [facility] System results) Body surface area 1.6 m2 1.6 m2 [facility] Derived from Health Syste m formula Body mass index 20.3 kg/m2 20.3 [facility] Sy[facility] em Body weight 57.15 kg 57.15 kg [facility] Measured Health System Body height 167.64 cm 167.64 cm [facility] Body surface area 1.6 m2 1.6 m2 [place] Derived from [facility] Syste m formula Body mass index 20.1 kg/m2 20.1 kg/m2 [facility] ([facility] [Ratio] Health Syst Body weight 56.69 kg 56.69 kg [facility] Measured Health System Body height 167.64 cm 167.64 cm [facility] Body temperature 98.1 [degF] 0 - 200 Normal (applies to 98.1 [degF ] [facility] non-numeric Health System results) Body temperature 36.7 Fina 0 - 99.9 Normal (applies to 36.7 Fina [facility] non-numeric Health System results) Diastolic blood 80 mm[Hg] 0 - 999 Normal (applies to 80 mm[Hg] [facility] non-numeric [facility] System results) Systolic blood 127 mm[Hg] 0 - 999 Normal (applies to 127 mm[Hg] [facility] pressure non-numeric [facility] System results) Deprecated Oxygen 98 % 0 - 999 Normal (applies to 98 % [facility] saturation in non-numeric Health s tem Capillary blood results) by Oximetry Respiratory rate 18 0 - 999 Above high normal 18 [facility] Heart rate 82 0 - 999 Normal (applies to 82 [facility] non-numeric [facility] System results) Body temperature 37.690449 37.092973 [facility] Respiratory rate 20 /min 20 /min [facility] Heart rate 73 /min 73 /min [facility] Systolic blood 84 mm[Hg] 84 mm[Hg] [facility] Diastolic blood 131 mm[Hg] 131 mm[Hg] [facility] [place] Body temperature 37.775830 37.232910 [facility] Respiratory rate 20 /min 20 /min [facility] Heart rate 69 /min 69 /min [facility] Systolic blood 76 mm[Hg] 76 mm[Hg] [facility] Diastolic blood 140 mm[Hg] 140 mm[Hg] [facility] [place] Body temperature 37.696762 37.296572 [facility] Respiratory rate 20 /min 20 /min [facility] Heart rate 72 /min 72 /min [facility] Systolic blood 78 mm[Hg] 78 mm[Hg] [facility] [place] Diastolic blood 131 mm[Hg] 131 mm[Hg] [facility] Body temperature 36.651985 36.913726 [facility] Respiratory rate 20 /min 20 /min [facility] Heart rate 74 /min 74 /min [facility] Systolic blood 68 mm[Hg] 68 mm[Hg] [facility] Diastolic blood 130 mm[Hg] 130 mm[Hg] [facility] Body temperature 36.856633 36.867386 [facility] Respiratory rate 18 /min 18 /min [facility] Heart rate 79 /min 79 /min [facility] Systolic blood 80 mm[Hg] 80 mm[Hg] [facility] Diastolic blood 129 mm[Hg] 129 mm[Hg] [facility] Deprecated Oxygen 99 % 99 % [facility] saturation in [facility] Capillary blood by Oximetry Body weight 54.738659 54.388710 kg [facility] Measured kg [facility] Deprecated Oxygen 99 % 99 % [facility] saturation in [facility] Capillary blood by Oximetry Body weight 56.387042 56.751397 kg [facility] Measured kg [facility] Deprecated Oxygen 96 % 96 % [facility] saturation in [facility] [place] [facility] Capillary blood by Oximetry Deprecated Oxygen 97 % 97 % [facility] saturation in [facility] Capillary blood by Oximetry Body weight 54.912477 54.050854 kg [facility] hs Measured kg [facility] Body height 167.210187 167.834003 cm [facility] Body mass index 19.50 kg/m2 19.50 kg/m2 [facility] (BMI) [Ratio] [facility] Body weight 54.791341 54.019613 kg [facility] hs Measured kg [facility] Center Body weight 53.282358 53.960900 [facility] Measured kg [facility] Body temperature 36.524532 36.095246 [facility] Respiratory rate 18 /min 18 /min [facility] Heart rate 78 /min 78 /min [facility] Systolic blood 76 mm[Hg] 76 mm[Hg] [facility] Diastolic blood 133 mm[Hg] 133 mm[Hg] [facility] Respiratory rate 20 /min 20 /min [facility] Heart rate 71 /min 71 /min [facility] Systolic blood 79 mm[Hg] 79 mm[Hg] [facility] Diastolic blood 134 mm[Hg] 134 mm[Hg] [facility] Body temperature 36.920953 36.832686 [facility] Respiratory rate 14 /min 14 /min [facility] Heart rate 81 /min 81 /min [facility] Systolic blood 73 mm[Hg] 73 mm[Hg] [facility] Diastolic blood 129 mm[Hg] 129 mm[Hg] [facility] Respiratory rate 15 /min 15 /min [facility] Heart rate 82 /min 82 /min [facility] Systolic blood 79 mm[Hg] 79 mm[Hg] [facility] Diastolic blood 143 mm[Hg] 143 mm[Hg] [facility] Body temperature 36.241910 36.697608 [facility] Respiratory rate 19 /min 19 /min [facility] Heart rate 85 /min 85 /min [facility] Systolic blood 70 mm[Hg] 70 mm[Hg] [facility] [place] Diastolic blood 136 mm[Hg] 136 mm[Hg] [facility] Body temperature 37.964567 37.307557 [facility] Body temperature 36.509194 36.892411 [facility] Body weight 52.371616 52.773367 kg [facility] Measured kg [facility] Body height 167.096033 167.629362 cm [facility] Body mass index 18.75 kg/m2 18.75 kg/m2 [facility] (BMI) [Ratio] [facility] ter Body height 170.333894 170.490055 cm [facility] Body mass index 18.20 kg/m2 18.20 kg/m2 [facility] (BMI) [Ratio] Medical [facility] ter Deprecated Oxygen 100 % 100 % [facility] saturation in [facility] [facility] Capillary blood by Oximetry Deprecated Oxygen 99 % 99 % [facility] saturation in [facility] [place] [facility] Capillary blood by Oximetry Deprecated Oxygen 97 % 97 % [facility] saturation in [facility] [place] [facility] Capillary blood by Oximetry Deprecated Oxygen 97 % 97 % [facility] saturation in Medical [facility] ter Capillary blood by Oximetry Patient Treatment Plan of Care Planned Activity Planned Date Details Description Data Source (s) Aml[facility]ipine 5 MG [facility] EST System tramadol hydrochloride 50 05/04/2018 [facility] MG Oral Tablet 01:34:26 PM EST System Naproxen sodium 550 MG Oral 04/28/2018 [facility] Health Tablet [Anaprox] 11:40:42 PM EST System Prednisone 50 MG Oral 04/28/2018 [facility] Health Tablet 11:39:57 PM EST System Insulin Lispro 100 UNT/ML 06/24/2017 [facility] Injectable Solution 05:09:57 PM EDT Syste m [Humalog] 3 ML Insulin Lispro 100 06/24/2017 [facility] UNT/ML Pen Injector 05:05:47 PM EDT Syste m [Humalog] Insulin Glargine 06/24/2017 [facility] 05:05:32 PM EDT System Vitamin B 12 0.1 MG Oral 06/24/2017 [facility] Tablet 05:01:24 PM EDT System pantoprazole 40 MG Delayed 06/24/2017 [facility] Release Oral Tablet 05:01:13 PM EDT Syste m ferrous sulfate 325 MG 06/24/2017 [facility] Delayed Release Oral Tablet 05:01:07 PM EDT System 200 ACTUAT Albuterol 0.09 06/24/2017 [facility] MG/ACTUAT Metered Dose 05:00:59 PM EDT Sy stem Inhaler Aspirin 81 MG Delayed 06/24/2017 [facility] Release Oral Tablet 05:00:52 PM EDT Syste m atorvastatin 40 MG Oral 06/24/2017 [facility] Health Tablet 05:00:46 PM EDT System Aluminum Hydroxide 80 MG/ML 06/24/2017 [facility] / Magnesium Hydroxide 80 05:00:35 PM EDT System MG/ML / Simethicone 8 MG/ML Oral Suspension [Mylanta] Lisinopril 20 MG [facility]2017 [facility] 05:00:29 PM EDT System 3 ML Insulin Lispro 100 06/19/2017 [facility] Health UNT/ML Pen Injector 04:17:34 PM EDT Syste m [Humalog] Insulin Glargine 06/19/2017 [facility] 04:14:46 PM EDT System Lisinopril 10 MG [facility]/07/2017 [facility] 02:05:23 PM EDT System Amylases 41643 UNT / 06/07/2017 [facility] Endopeptidases 71786 UNT / 01:41:46 PM EDT System Lipase 23194 UNT Delayed Release Oral Capsule 3 ML Insulin Lispro 100 06/07/2017 [facility] UNT/ML Pen Injector 01:37:41 PM EDT Syste m [Humalog] Insulin Lispro 100 UNT/ML 03/03/2017 [facility] Injectable Solution 02:23:45 PM EST Syste m Ascorbic Acid 500 MG Oral 12/30/2016 [facility] Tablet 12:55:24 PM EDT System fluticasone Nasal Product 12/30/2016 [facility] 12:54:46 PM EDT System Lactulose 667 MG/ML Oral 12/30/2016 [facility] Solution 12:53:46 PM EDT System Insulin Glargine 12/30/2016 [facility] 12:51:42 PM EDT System guaiFENesin-dextromethorpha 11/23/2016 [facility] n 10:13:07 AM EDT System Naproxen 500 MG Oral Tablet 11/23/2016 [facility] 10:09:33 AM EDT System ferrous sulfate 60 MG/ML 11/21/2016 [facility] Oral Solution 08:43:52 PM EDT System Insulin Lispro 11/13/2016 [facility] alth 08:41:10 AM EDT System 3 ML Insulin Glargine 100 11/13/2016 [facility] UNT/ML Pen Injector 08:40:42 AM EDT Syste m [Lantus] Insulin Lispro 100 UNT/ML 11/08/2016 [facility] Injectable Solution 09:15:54 PM EDT Syste m Insulin Lispro 100 UNT/ML 09/22/2016 [facility] Injectable Solution 01:21:01 PM EDT Syste m Nitroglycerin 0.02 MG/MG 09/22/2016 [facility] Topical Ointment 01:19:31 PM EDT System Acetaminophen 325 MG Oral 09/22/2016 [facility] Tablet 12:00:00 AM EDT System Losartan Potassium 50 MG 09/22/2016 [facility] Oral Tablet 12:00:00 AM EDT System Magnesium Oxide 400 MG Oral 09/12/2016 [facility] Tablet 01:23:04 PM EDT System POLYETHYLENE GLYCOL 3350 09/12/2016 [facility] 142 MG/ML Oral Solution 11:45:21 AM EDT S ystem Amylases 91650 UNT / 09/12/2016 [facility] Endopeptidases 71131 UNT / 11:44:46 AM EDT System Lipase 79962 UNT Delayed Release Oral Capsule Fluticasone propionate 0.25 09/12/2016 [facility] MG/ACTUAT / salmeterol 0.05 11:42:23 AM EDT System MG/ACTUAT Dry Powder Inhaler lidocaine 5% topical film 09/12/2016 [facility] 11:37:04 AM EDT System Albuterol 0.833 MG/ML / 09/12/2016 [facility] Ipratropium [place] 0.167 11:36:39 AM EDT System MG/ML Inhalant Solution Insulin Glargine 09/12/2016 [facility] 11:36:10 AM EDT System Cefuroxime 500 MG [facility]2016 [facility] 12:[facility]00 AM EDT System Cyclobenzaprine 09/12/2016 [facility] ealth hydrochloride 10 MG Oral 12:00:00 AM EDT System Tablet Docusate Sodium 50 MG / 09/12/2016 [facility] sennosides, RETIREMENT 8.6 MG Oral 12:00:00 AM EDT System Tablet Amlodipine 5 MG Oral Tablet 09/12/2016 [facility] 12:00:00 AM EDT System Multivitamin preparation 08/26/2015 [facility] 03:23:21 PM EDT System pantoprazole 40 MG Delayed 08/26/2015 [facility] Release Oral Tablet 03:23:05 PM EDT Syste m Docusate Sodium 50 MG / 08/26/2015 [facility] sennosides, RETIREMENT 8.6 MG Oral 03:22:46 PM EDT System Tablet Aspirin 81 MG Chewable 08/26/2015 [facility] 03:21:36 PM EDT System atorvastatin 10 MG [facility]2015 [facility] 03:21[facility]01 PM EDT System 3 ML Insulin Lispro 25 08/26/2015 [facility] U[facility]/ML / Insulin, Protamine 03:20:36 PM EDT System Lispro, Human 75 UNT/ML Pen Injector [Humalog Mix] gabapentin 100 MG Oral 08/26/2015 [facility] Capsule 03:14:42 PM EDT System Aluminum Hydroxide 80 MG/ML 08/26/2015 [facility] / Magnesium Hydroxide 80 03:14:10 PM EDT System MG/ML / Simethicone 8 MG/ML Oral Suspension [Mylanta] Thiamine 100 MG Oral Tablet 08/26/2015 [facility] 12:00:00 AM EDT System Folic Acid 1 MG Oral Tablet 08/26/2015 [facility] 12:00:00 AM EDT System Lactulose 667 MG/ML Oral 08/07/2015 [facility] 11:14:07 AM EDT System 3 ML Insulin Lispro 25 08/07/2015 [facility] U[facility]/ML / Insulin, Protamine 11:13:34 AM EDT System Lispro, Human 75 UNT/ML Pen Injector [Humalog Mix] Amylases 59781 UNT / 08/05/2015 [facility] Endopeptidases 74227 UNT / 12:00:00 AM EDT System Lipase 71935 UNT Delayed Release Oral Capsule Docusate Sodium 50 MG / 04/17/2015 [facility] sennosides, RETIREMENT 8.6 MG Oral 11:21:56 AM EST System Tablet Insulin Lispro 25 UNT/ML / 04/16/2015 [facility] Insulin, Protamine Lispro, 10:28:57 AM EST System Human 75 UNT/ML Injectable Suspension HumaLOG Mix 75/25 KwikPen 04/15/2015 [facility] 01:14:06 PM EST System HumaLOG Mix 75/25 KwikPen 04/15/2015 [facility] 01:12:15 PM EST System atorvastatin 10 MG Oral 04/15/2015 [facility] Tablet 01:11:11 PM EST System Zolpidem tartrate 5 MG Oral 04/15/2015 [facility] Tablet 01:10:18 PM EST System 200 ACTUAT Albuterol 0.09 04/15/2015 [facility] MG/ACTUAT Metered Dose 01:09:51 PM EST Sy stem Inhaler fluticasone-salmeterol 250 04/15/2015 [facility] mcg-50 mcg inhalation 01:09:34 PM EST Sys tem powder montelukast 10 MG Oral 04/15/2015 [facility] Tablet 01:07:59 PM EST System Citalopram 10 MG Oral 04/15/2015 [facility] Tablet 12:56:01 PM EST System Acetaminophen 300 MG / 04/15/2015 [facility] butalbital 50 MG / Caffeine 12:55:11 PM EST System 40 MG Oral Capsule [Fioricet] ammonium lactate topical 04/15/2015 [facility] 12:52:47 PM EST System Amlodipine 10 MG Oral 04/15/2015 [facility] Tablet 12:00:00 AM EST System Loratadine 10 MG Oral 04/15/2015 [facility] Tablet 12:00:00 AM EST System Enalapril Maleate 20 MG 04/15/2015 [facility] Tablet 12:00:00 AM EST System Pseudoephedrine 04/15/2015 [facility]alth Hydrochloride 30 MG Oral 12:00:00 AM EST System Tablet 3 ML Insulin Glargine 100 02/06/2015 [facility] UNT/ML Pen Injector 04:21:45 PM EST Syste m [Lantus] Insulin Glargine 02/06/2015 [facility] 01:04:15 PM EST System Enalapril Maleate 10 MG 02/06/2015 [facility] Oral Tablet 01:02:02 PM EST System Sulfamethoxazole 800 MG / 10/01/2014 [facility] Trimethoprim 160 MG Oral 03:23:29 PM EDT System Tablet [Bactrim] Sulfamethoxazole 800 MG / 10/01/2014 [facility] Trimethoprim 160 MG Oral 03:23:17 PM EDT System Tablet [Bactrim] Multivitamin preparation 09/29/2014 [facility] 12:00:00 AM EDT System Folic Acid 1 MG Oral Tablet 09/29/2014 [facility] 12:00:00 AM EDT System Insulin Glargine 100 UNT/ML 08/05/2014 [facility] Injectable Solution 01:05:35 PM EDT Syste m Enalapril Maleate 10 MG 08/05/2014 [facility] Oral Tablet 01:05:13 PM EDT System Nicotine 08/05/2014 [facility] 11:23:57 AM EDT System Nicotine 08/05/2014 [facility] 11:23:57 AM EDT System Thiamine 100 MG Oral Tablet 08/05/2014 [facility] 12:00:00 AM EDT System Thiamine 100 MG Oral Tablet 08/05/2014 [facility] 12:00:00 AM EDT System Folic Acid 1 MG Oral Tablet 08/05/2014 [facility] 12:00:00 AM EDT System Multivitamin preparation 08/05/2014 [facility] 12:00:00 AM EDT System Amoxicillin 875 MG / 08/05/2014 [facility] Clavulanate 125 MG Oral 12:00:00 AM EDT S ystem Tablet Levetiracetam 500 MG Oral 08/05/2014 [facility] Tablet 12:00:00 AM EDT System atorvastatin 10 MG Oral 06/06/2014 [facility] Tablet 12:06:06 PM EDT System Aspirin 81 MG Delayed 06/06/2014 [facility] Release Oral Tablet 12:05:50 PM EDT Syste m Magnesium Oxide 400 MG Oral 05/23/2014 [facility] Tablet 12:00:00 AM EDT System Ciprofloxacin 250 MG Oral 05/23/2014 [facility] Tablet 12:00:00 AM EDT System Fluticasone propionate 04/02/2014 [facility] 0.115 MG/ACTUAT / 03:55:38 PM EST System salmeterol 0.021 MG/ACTUAT Metered Dose Inhaler Azithromycin 500 MG Oral 04/02/2014 [facility] Tablet 03:53:05 PM EST System Acetaminophen 500 MG Oral 12/28/2013 [facility] Tablet 11:08:36 AM EDT System Advair Diskus [facility] lt System Methadone [facility] System insulin lispro [facility] protamin-lispro (HumaLOG [facility] Mix 50-50 KwikPen) 100 unit/mL (50-50) Insulin Pen lisinopril 10 mg [facility] TabletDirections: 1 tablet M [facility] oral daily insulin glargine (Lantus [facility] Solostar U-100 Insulin) 100 [facility] unit/mL (3 mL) Insulin PenDirections: subcutaneous daily Nystatin 087424 UNT/ML [facility] Topical Cream [facility] Acetaminophen 325 MG Oral Sa [facility] Tablet [facility] heparin sodium, porcine Patel [facility] 5000 UNT/ML Injectable [facility] Solution Triamcinolone Acetonide 1 [facility] MG/ML Topical Cream [facility] tramadol hydrochloride 50 Sa [facility] MG Oral Tablet [facility] Docusate Sodium 50 MG / Patel t [facility] sennosides, RETIREMENT 8.6 MG Oral [facility] Tablet pantoprazole 40 MG Delayed S aint [facility] Release Oral Tablet [facility] Levetiracetam 500 MG Oral [facility] Tablet [Keppra] [facility] Insulin Lispro 100 UNT/ML Sa int [facility] Injectable Solution [facility] [Humalog] insulin detemir 100 UNT/ML [facility] In[facility] [Levemir] bacitracin zinc 0.5 UNT/MG [facility] Topical Ointment [facility] ter Amlodipine 5 MG Oral Tablet [facility]
[2019-12-03] MEDS: prednisoLONE ACETATE 1% OPHTH SUSP 5 ML BOTTLE OU SCH (18:49)
[2019-12-03] MEDS: INSULIN SLIDING SCALE (NOVOLOG) 1 VIAL SQ SCH (18:49)
[2019-12-03] MEDS: SODIUM CHLORIDE 1,000 ML IV SCH (18:51)
[2019-12-03] MEDS: amLODIPine BESYLATE 5 MG TABLET (FP) PO SCH (18:51)
[2019-12-03] MEDS ORDERED: ACETAMINOPHEN 500 MG TABLET (FP) PO SCH (22:00)
[2019-12-03 23:26] LABS: BLOOD UREA NITROGEN 29.7 mg/dL (7-18); CALCIUM 7.2 mg/dL (8.5-10.1); CREATININE 1.8 mg/dL (0.55-1.3); POTASSIUM 4.5 mmol/L (3.5-5.1)
[2019-12-03] MEDS ORDERED: ATORVASTATIN CA 40 MG TABLET (FP) ONE (23:59)
[2019-12-03] MEDS ORDERED: HEPARIN NA (PORCINE) 5,000 UNITS/ML 1ML VIAL ONE (23:59)
[2019-12-04] MEDS: ATORVASTATIN CA 40 MG TABLET (FP) PO SCH ×2 (00:21→21:08)
[2019-12-04] MEDS: HEPARIN NA (PORCINE) 5,000 UNITS/ML 1ML VIAL SQ SCH ×4 (00:21→21:09)
[2019-12-04] MEDS: prednisoLONE ACETATE 1% OPHTH SUSP 5 ML BOTTLE OU SCH ×5 (00:21→21:07)
[2019-12-04 02:57] LABS: EPI CELLS >36 /uL (0-25.1); HYALINE CASTS 5 /uL (0-3.1); URINE APPEARANCE CLOUDY; URINE BACTERIA 1761 /uL (0-1359); URINE BILIRUBIN NEGATIVE (NEGATIVE); URINE COLOR YELLOW; URINE GLUCOSE (UA) NEGATIVE (NEGATIVE); URINE KETONE TRACE (NEGATIVE); URINE LEUK ESTERASE NEGATIVE (NEGATIVE); URINE NITRITE NEGATIVE (NEGATIVE); URINE PROTEIN 2+ (NEGATIVE); URINE UROBILINOGEN 0.2 mg/dL (0.2-1.0)
[2019-12-04 03:00] LABS: URINE RBC 17.7 /uL (0-23.9); URINE WBC 70.7 /uL (0-25.8)
[2019-12-04 03:03] LABS: COCAINE, UR NEGATIVE ng/ml (CUTOFF=300); METHADONE, UR NEGATIVE ng/ml (CUTOFF=300); PHENCYCLIDINE,URINE NEGATIVE ng/ml (CUTOFF=25); URINE AMPHETAMINES NEGATIVE ng/ml (CUTOFF=500); URINE BARBITURATES NEGATIVE ng/ml (CUTOFF=200); URINE BENZODIAZEPINES NEGATIVE ng/ml (CUTOFF=200)
[2019-12-04 04:11] LABS: OPIATES, URI POSITIVE ng/ml (CUTOFF=300)
[2019-12-04 04:55] LABS: EPI CELLS >36 /uL (0-25.1); HYALINE CASTS 4 /uL (0-3.1); URINE APPEARANCE CLOUDY; URINE BACTERIA 1023 /uL (0-1359); URINE BILIRUBIN NEGATIVE (NEGATIVE); URINE COLOR YELLOW; URINE GLUCOSE (UA) NEGATIVE (NEGATIVE); URINE KETONE NEGATIVE (NEGATIVE); URINE LEUK ESTERASE NEGATIVE (NEGATIVE); URINE NITRITE NEGATIVE (NEGATIVE); URINE PROTEIN 2+ (NEGATIVE); URINE UROBILINOGEN 0.2 mg/dL (0.2-1.0)
[2019-12-04 05:41] VITALS: BMI 17.2
[2019-12-04] MEDS: INSULIN SLIDING SCALE (NOVOLOG) 1 VIAL SQ SCH ×3 (06:19→16:49)
--- NOTE | 2019-12-04 09:52 | CONSULT ---
Consultation: REQUESTING PROVIDER: Dr. Gutierrez Nephrology consult- resident consult note CONSULT REQUEST: We have been asked to medically evaluate this patient for acute kidney injury. HISTORY OF PRESENT ILLNESS: Patient is a 64 year old female with history of diabetes mellitus, hypertension, hyperlipidemia, prior CVA, asthma presented from [facility] with change in mental status. Patient believes she was brought to Emergency Department due to low blood glucose, however her blood glucose was recorded at 223mg/dL in the Emergency Department. She was hyperkalemic to 5.6, however repeat BMP with potassium at 4.5. BUN 28.7, creatinine 2.1 (baseline at 1.3 from prior admission). She denies any trauma or loss of consciousness. Admits diminished oral intake over the past few days, but does not endorse abdominal pain, nausea, vomiting, diarrhea. She denies subjective fevers, chills. Denies recent NSAID or diuretic use. Noted patient was disheveled with feces on her clothing upon presentation. REVIEW OF SYSTEMS: As per HPI PHYSICAL EXAMINATION Vital Signs - 24 hr 12/03/19 12/03/19 12/03/19 10:20 14:30 18:00 Temperature 97.8 F 98.3 F Pulse Rate 83 Pulse Rate [ 74 78 Apical] Respiratory 18 16 18 Rate Blood Pressure 100/58 L Blood Pressure 114/75 104/68 [Left Arm] O2 Sat by Pulse 99 99 99 Oximetry (%) 12/03/19 12/04/19 12/04/19 23:20 00:20 01:05 Temperature 98.4 F 98.6 F Pulse Rate 110 H Pulse Rate [ 93 H Apical] Respiratory 16 18 Rate Blood Pressure 131/64 Blood Pressure 133/72 [Left Arm] O2 Sat by Pulse 100 100 100 Oximetry (%) 12/04/19 12/04/19 03:00 06:00 Temperature 98.6 F Pulse Rate 109 H Pulse Rate [ Apical] Respiratory 20 Rate Blood Pressure 116/67 Blood Pressure [Left Arm] O2 Sat by Pulse 96 96 Oximetry (%) GENERAL: The patient is awake, alert, oriented to person and place. Dishevelled. HEAD: Normocephalic, atraumatic. EYES: PERRL, extraocular movements intact, sclera anicteric. ENT: Poor dentition. Dry mucous membranes. NECK: Supple, without lymphadenopathy. LUNGS: Breath sounds equal, clear to auscultation bilaterally. No accessory muscle use. HEART: Regular rate and rhythm. S1, S2 without murmur, rub or gallop. ABDOMEN: Soft, nondistended, nontender to light and deep palpation x4 quadrants. EXTREMITIES: 2+ radial, dorsalis pedis pulses bilaterally. Warm, well-perfused. No lower extremity edema bilaterally. NEUROLOGICAL: Cranial nerves II through XII grossly intact. Normal speech. No gross focal deficits. PSYCH: Normal mood, normal affect upon my encounter. SKIN: Warm, dry. Laboratory Results - last 24 hr 12/03/19 12/03/19 12/03/19 10:56 12:04 12:04 WBC 12.2 H RBC 3.11 L Hgb 9.1 L Hct 28.0 L MCV 90.0 MCH 29.4 MCHC 32.7 RDW 14.7 Plt Count 521 H MPV 8.1 Absolute Neuts (auto) 10.6 H Neutrophils % 87.3 H Lymphocytes % 7.5 L Monocytes % 4.7 Eosinophils % 0.0 Basophils % 0.5 Nucleated RBC % 0 Sodium 133 L Potassium 5.6 H Chloride 105 Carbon Dioxide 21 Anion Gap 8 BUN 28.7 H Creatinine 2.1 H Est GFR (CKD-EPI)AfAm 27.92 Est GFR (CKD-EPI)NonAf 24.09 POC Glucometer Random Glucose 223 H Lactic Acid Calcium 7.9 L Iron TIBC Iron Saturation Unsaturated IBC Ferritin Total Bilirubin 0.2 AST 27 ALT 11 L Alkaline Phosphatase 290 H Total Protein 8.9 H Albumin 2.7 L Vitamin B12 Serum Folate TSH Free T4 Urine Color Yellow Urine Appearance Cloudy Urine pH 5.0 Ur Specific [place] 1.021 Urine Protein 2+ H Urine Glucose (UA) Negative Urine Ketones Trace H Urine Blood Negative Urine Nitrite Negative Urine Bilirubin Negative Urine Urobilinogen 0.2 Ur Leukocyte Esterase Negative Urine WBC (Auto) 70.7 Urine RBC (Auto) 17.7 Urine Casts (Auto) 5 U Pathogenic Cast Auto None seen U Epithel Cells (Auto) >36 Urine Bacteria (Auto) 1761 Opiates Screen Methadone Screen Barbiturate Screen Phencyclidine Screen Ur Amphetamines Screen MDMA (Ecstasy) Screen Benzodiazepines Screen Cocaine Screen U Marijuana (THC) Screen 12/03/19 12/03/19 12/03/19 12:04 12:04 18:24 WBC RBC Hgb Hct MCV MCH MCHC RDW Plt Count MPV Absolute Neuts (auto) Neutrophils % Lymphocytes % Monocytes % Eosinophils % Basophils % Nucleated RBC % Sodium Potassium Chloride Carbon Dioxide Anion Gap BUN Creatinine Est GFR (CKD-EPI)AfAm Est GFR (CKD-EPI)NonAf POC Glucometer 93 Random Glucose Lactic Acid 2.0 Calcium Iron TIBC Iron Saturation Unsaturated IBC Ferritin Total Bilirubin AST ALT Alkaline Phosphatase Total Protein Albumin Vitamin B12 Serum Folate TSH 8.01 H Free T4 Urine Color Urine Appearance Urine pH Ur Specific [place] Urine Protein Urine Glucose (UA) Urine Ketones Urine Blood Urine Nitrite Urine Bilirubin Urine Urobilinogen Ur Leukocyte Esterase Urine WBC (Auto) Urine RBC (Auto) Urine Casts (Auto) U Pathogenic Cast Auto U Epithel Cells (Auto) Urine Bacteria (Auto) Opiates Screen Methadone Screen Barbiturate Screen Phencyclidine Screen Ur Amphetamines Screen MDMA (Ecstasy) Screen Benzodiazepines Screen Cocaine Screen U Marijuana (THC) Screen 12/03/19 12/03/19 12/04/19 22:40 22:40 02:00 WBC RBC Hgb Hct MCV MCH MCHC RDW Plt Count MPV Absolute Neuts (auto) Neutrophils % Lymphocytes % Monocytes % Eosinophils % Basophils % Nucleated RBC % Sodium 138 Potassium 4.5 Chloride 109 H Carbon Dioxide 22 Anion Gap 7 L BUN 29.7 H Creatinine 1.8 H Est GFR (CKD-EPI)AfAm 33.64 Est GFR (CKD-EPI)NonAf 29.02 POC Glucometer Random Glucose 86 Lactic Acid Calcium 7.2 L Iron 19 L TIBC 143 L Iron Saturation 13 L Unsaturated IBC 124 L Ferritin 259.0 Total Bilirubin AST ALT Alkaline Phosphatase Total Protein Albumin Vitamin B12 1353 H Serum Folate 9 TSH Free T4 1.21 Urine Color Yellow Urine Appearance Cloudy Urine pH 5.0 Ur Specific [place] 1.022 Urine Protein 2+ H Urine Glucose (UA) Negative Urine Ketones Negative Urine Blood Negative Urine Nitrite Negative Urine Bilirubin Negative Urine Urobilinogen 0.2 Ur Leukocyte Esterase Negative Urine WBC (Auto) Urine RBC (Auto) Urine Casts (Auto) 4 U Pathogenic Cast Auto U Epithel Cells (Auto) >36 Urine Bacteria (Auto) 1023 Opiates Screen Methadone Screen Barbiturate Screen Phencyclidine Screen Ur Amphetamines Screen MDMA (Ecstasy) Screen Benzodiazepines Screen Cocaine Screen U Marijuana (THC) Screen 12/04/19 12/04/19 02:10 05:53 WBC RBC Hgb Hct MCV MCH MCHC RDW Plt Count MPV Absolute Neuts (auto) Neutrophils % Lymphocytes % Monocytes % Eosinophils % Basophils % Nucleated RBC % Sodium Potassium Chloride Carbon Dioxide Anion Gap BUN Creatinine Est GFR (CKD-EPI)AfAm Est GFR (CKD-EPI)NonAf POC Glucometer 100 Random Glucose Lactic Acid Calcium Iron TIBC Iron Saturation Unsaturated IBC Ferritin Total Bilirubin AST ALT Alkaline Phosphatase Total Protein Albumin Vitamin B12 Serum Folate TSH Free T4 Urine Color Urine Appearance Urine pH Ur Specific [place] Urine Protein Urine Glucose (UA) Urine Ketones Urine Blood Urine Nitrite Urine Bilirubin Urine Urobilinogen Ur Leukocyte Esterase Urine WBC (Auto) Urine RBC (Auto) Urine Casts (Auto) U Pathogenic Cast Auto U Epithel Cells (Auto) Urine Bacteria (Auto) Opiates Screen Positive A* Methadone Screen Negative Barbiturate Screen Negative Phencyclidine Screen Negative Ur Amphetamines Screen Negative MDMA (Ecstasy) Screen Negative Benzodiazepines Screen Negative Cocaine Screen Negative U Marijuana (THC) Screen Negative Active Medications Generic Name Dose Route Start Last Admin Trade Name Herbertq PRN Reason Stop Dose Admin Amlodipine Besylate 5 mg 12/03/19 17:00 12/03/19 18:51 Norvasc - PO Not Given DAILY [facility] Aspirin 81 mg 12/04/19 10:00 Asa - PO DAILY [facility] Atorvastatin Calcium 40 mg 12/03/19 22:00 12/04/19 00:21 Lipitor - PO 40 mg HS [facility] Administration Cyanocobalamin 100 mcg 12/04/19 10:00 Vitamin B12 - PO DAILY [facility] Ferrous Sulfate 325 mg 12/04/19 10:00 Feosol - PO DAILY [facility] Heparin Sodium (Porcine) 5,000 unit 12/03/19 22:00 12/04/19 07:02 Heparin - SQ Not Given TID [facility] Sodium Chloride 1,000 mls @ 100 mls/hr 12/03/19 18:29 12/03/19 18:51 Normal Saline - IV 100 mls/hr ASDIR [facility] Administration Insulin Aspart 1 vial 12/03/19 16:30 12/04/19 06:19 Novolog Vial Sliding Scale - SQ Not Given TIDAC [facility] Protocol Prednisolone Acetate 1 drop 12/03/19 18:00 12/04/19 00:21 Pred Forte 1% - OU Not Given QID [facility] Tiotropium [place] 2 puff 12/04/19 10:00 Spiriva Respimat DAILY [facility] ASSESSMENT/PLAN: Patient is a 64 year old female with history of diabetes mellitus, hypertension, hyperlipidemia, prior CVA, asthma, GERD presented from [facility] with change in mental status. Impression Acute kidney injury Hyperkalemia Encephalopathy Opiate use disorder Diabetes mellitus Hypertension Hyperlipidemia History of CVA Gastro-esophageal reflux Asthma Plan Acute kidney Injury: Suspect pre- renal etiology of acute kidney injury given patient's diminished oral intake. Noted patient was disheveled upon presentation to Emergency Department. Appears to be responding to IV fluids. Obtain urine electrolytes, calculate FeNa Continue gentle hydration with IV normal saline at 100mL/ hour Agree with holding home Lisinopril for now, in setting of HAM. Hyperkalemia resolved. Increased tubular flow with IV fluids will contribute to potassium excretion. Avoid nephrotoxic agents Monitor intake, output Follow BMP Disposition: We will continue to follow the patient. Thank you for this consultative opportunity. Visit type - Medication Review Med list reviewed for High Risk Meds patients 65 and older: Yes - Emergency Visit Emergency Visit: Yes ED Registration Date: 12/03/19 Care time: The patient presented to the Emergency Department on the above date and was hospitalized for further evaluation of their emergent condition. - New Patient This patient is new to me today: Yes Date on this admission: 12/04/19 - Critical Care Critical Care patient: No ATTENDING PHYSICIAN STATEMENT I saw and evaluated the patient. I reviewed the resident's note and discussed the case with the resident. I agree with the resident's findings and plan as documented. SUBJECTIVE: OBJECTIVE: ASSESSMENT AND PLAN:
--- NOTE | 2019-12-04 10:03 | EKG ---
Test Reason : Blood Pressure : / mmHG Vent. Rate : 079 BPM Atrial Rate : 079 BPM P-R Int : 128 ms QRS Dur : 074 ms QT Int : 390 ms P-R-T Axes : 080 069 066 degrees QTc Int : 447 ms NORMAL SINUS RHYTHM POSSIBLE LEFT ATRIAL ENLARGEMENT BORDERLINE ECG WHEN COMPARED WITH ECG OF 24-NOV-2019 12:54, NO SIGNIFICANT CHANGE WAS FOUND Confirmed by Matty Connors ([id number]) on 12/04/2019 10:03:20 AM Referred By: Confirmed By:Matty Connors
[2019-12-04] MEDS: amLODIPine BESYLATE 5 MG TABLET (FP) PO SCH (11:15)
[2019-12-04] MEDS: FERROUS SO4 325 MG TABLET (FP) PO SCH (11:15)
[2019-12-04] MEDS: ASPIRIN 81 MG CHEWABLE TABLETS PO SCH (11:15)
[2019-12-04] MEDS: TIOTROPIUM BROMIDE 2.5 MCG (SPIRIVA) RESPIMAT INHALER IH SCH (11:18)
[2019-12-04 13:22] LABS: HEMATOCRIT 28.8 % (32.4-45.2); HEMOGLOBIN 9.6 GM/dL (10.7-15.3); MCH 29.8 pg (25.7-33.7); MCHC 33.4 g/dl (32.0-36.0); MEAN CELL VOLUME 89.2 fl (80-96); MEAN PLT VOLUME 8.3 fl (7.5-11.1); PLATELET COUNT 492 K/MM3 (134-434); RBC 3.23 M/mm3 (3.60-5.2); RDW 14.7 % (11.6-15.6); WHITE BLOOD COUNT 7.9 K/mm3 (4.0-10.0)
--- NOTE | 2019-12-04 13:37 | PN ---
Teaching Attending Note Name of Resident: Chao Weaver (Nephrology) ATTENDING PHYSICIAN STATEMENT I saw and evaluated the patient. I reviewed the resident's note and discussed the case with the resident. I agree with the resident's findings and plan as documented. Renal Pt is a 64 year old female with pmhx of htn, dm, hep c, asthma, who presents with altered mental status. She was found to have HAM. She was also altered. She is now awake and alert and says she feels better. pmhx dm htn hep c nkda social hx denies family hx denies Laboratory Tests 11/24/19 12/03/19 12/03/19 13:51 12:04 22:40 Creatinine 1.3 2.1 H 1.8 H Ur Specific [place] Urine Protein Urine Blood 12/04/19 02:00 Creatinine Ur Specific [place] 1.022 Urine Protein 2+ H Urine Blood Negative Last Vital Signs Temp Pulse Resp BP Pulse Ox 98.6 F 95 H 18 130/77 100 12/04/19 09:53 12/04/19 09:53 12/04/19 09:53 12/04/19 09:53 12/04/19 09:53 cardio s1s2 pulm clear gi soft ext neg edema neuro awake and alert Current Medications Generic Name Dose Route Start Last Admin Trade Name Freq PRN Reason Stop Dose Admin Amlodipine Besylate 5 mg 12/03/19 17:00 12/04/19 11:15 Norvasc - PO 5 mg DAILY [facility] Administration Aspirin 81 mg 12/04/19 10:00 12/04/19 11:15 Asa - PO 81 mg DAILY [facility] Administration Atorvastatin Calcium 40 mg 12/03/19 22:00 12/04/19 00:21 Lipitor - PO 40 mg HS [facility] Administration Cyanocobalamin 100 mcg 12/04/19 10:00 Vitamin B12 - PO DAILY [facility] Ferrous Sulfate 325 mg 12/04/19 10:00 12/04/19 11:15 Feosol - PO 325 mg DAILY [facility] Administration Heparin Sodium (Porcine) 5,000 unit 12/03/19 22:00 12/04/19 07:02 Heparin - SQ Not Given TID [facility] Sodium Chloride 1,000 mls @ 100 mls/hr 12/03/19 18:29 12/03/19 18:51 Normal Saline - IV 100 mls/hr ASDIR [facility] Administration Insulin Aspart 1 vial 12/03/19 16:30 12/04/19 11:19 Novolog Vial Sliding Scale - SQ Not Given TIDAC [facility] Protocol Prednisolone Acetate 1 drop 12/03/19 18:00 12/04/19 11:18 Pred Forte 1% - OU 1 drop QID [facility] Administration Tiotropium [place] 2 puff 12/04/19 10:00 12/04/19 11:18 Spiriva Respimat [facility] 2 puff DAILY [facility] Administration Laboratory Tests 12/04/19 02:10 Opiates Screen Positive A* Impression Acute kidney injury Hyperkalemia Encephalopathy Opiate use disorder Diabetes mellitus Hypertension Hyperlipidemia History of CVA Gastro-esophageal reflux Asthma Plan - cont fluids - renal function improving - urine sg elevated, likely prerenal - check ua, urine lytes and boxcar weigher to calc fena - follow repeat labs - stop metformin - potassium improved
[2019-12-04 13:52] LABS: BLOOD UREA NITROGEN 24.7 mg/dL (7-18); CREATININE 1.4 mg/dL (0.55-1.3); MAGNESIUM 1.2 mg/dL (1.8-2.4); PHOSPHOROUS 3.1 mg/dL (2.5-4.9); POTASSIUM 4.9 mmol/L (3.5-5.1)
[2019-12-04 14:14] LABS: CALCIUM 7.9 mg/dL (8.5-10.1)
[2019-12-04] MEDS: CYANOCOBALAMIN (VITAMIN B-12) 100 MCG TABLET PO SCH (15:43)
--- NOTE | 2019-12-04 16:03 | PN ---
Teaching Attending Note Name of Resident: Ellen Castelan ATTENDING PHYSICIAN STATEMENT I saw and evaluated the patient. I reviewed the resident's note and discussed the case with the resident. I agree with the resident's findings and plan as documented. SUBJECTIVE: Feeling well, no complaints. Denies confusion. Denies lightheadedness/headache/visual disturbance/limb numbness or weakness. Denies fever/chills/dysuria/hematuria. OBJECTIVE: Afebrile, Hemodynamically Stable. Last Vital Signs Temp Pulse Resp BP Pulse Ox 99 F 108 H 20 114/72 100 12/04/19 14:00 12/04/19 14:00 12/04/19 14:00 12/04/19 14:00 12/04/19 09:53 HEENT - Atraumatic, Normocephalic. Heart - S1, S2, RRR Lungs - clear to auscultation Abdomen - Soft, mild epigastric tenderness. Bowel Sounds normal. Extremities - no edema, no calf tenderness. Neuro - AAO x 2. Tone/Power normal. Laboratory Results - last 24 hr 12/03/19 12/03/19 12/03/19 10:56 18:24 22:40 WBC RBC Hgb Hct MCV MCH MCHC RDW Plt Count MPV Sodium 138 Potassium 4.5 Chloride 109 H Carbon Dioxide 22 Anion Gap 7 L BUN 29.7 H Creatinine 1.8 H Est GFR (CKD-EPI)AfAm 33.64 Est GFR (CKD-EPI)NonAf 29.02 POC Glucometer 93 Random Glucose 86 Calcium 7.2 L Phosphorus Magnesium Iron TIBC Iron Saturation Unsaturated IBC Ferritin Ammonia Vitamin B12 Serum Folate 9 Free T4 1.21 Urine Color Yellow Urine Appearance Cloudy Urine pH 5.0 Ur Specific [place] 1.021 Urine Protein 2+ H Urine Glucose (UA) Negative Urine Ketones Trace H Urine Blood Negative Urine Nitrite Negative Urine Bilirubin Negative Urine Urobilinogen 0.2 Ur Leukocyte Esterase Negative Urine WBC (Auto) 70.7 Urine RBC (Auto) 17.7 Urine Casts (Auto) 5 U Pathogenic Cast Auto None seen U Epithel Cells (Auto) >36 Urine Bacteria (Auto) 1761 Ur Random Creatinine Ur Random Sodium Ur Random Potassium Ur Random Chloride Opiates Screen Methadone Screen Barbiturate Screen Phencyclidine Screen Ur Amphetamines Screen MDMA (Ecstasy) Screen Benzodiazepines Screen Cocaine Screen U Marijuana (THC) Screen Syphilis Serology 12/03/19 12/04/19 12/04/19 22:40 02:00 02:10 WBC RBC Hgb Hct MCV MCH MCHC RDW Plt Count MPV Sodium Potassium Chloride Carbon Dioxide Anion Gap BUN Creatinine Est GFR (CKD-EPI)AfAm Est GFR (CKD-EPI)NonAf POC Glucometer Random Glucose Calcium Phosphorus Magnesium Iron 19 L TIBC 143 L Iron Saturation 13 L Unsaturated IBC 124 L Ferritin 259.0 Ammonia Vitamin B12 1353 H Serum Folate Free T4 Urine Color Yellow Urine Appearance Cloudy Urine pH 5.0 Ur Specific [place] 1.022 Urine Protein 2+ H Urine Glucose (UA) Negative Urine Ketones Negative Urine Blood Negative Urine Nitrite Negative Urine Bilirubin Negative Urine Urobilinogen 0.2 Ur Leukocyte Esterase Negative Urine WBC (Auto) Urine RBC (Auto) Urine Casts (Auto) 4 U Pathogenic Cast Auto U Epithel Cells (Auto) >36 Urine Bacteria (Auto) 1023 Ur Random Creatinine Ur Random Sodium Ur Random Potassium Ur Random Chloride Opiates Screen Positive A* Methadone Screen Negative Barbiturate Screen Negative Phencyclidine Screen Negative Ur Amphetamines Screen Negative MDMA (Ecstasy) Screen Negative Benzodiazepines Screen Negative Cocaine Screen Negative U Marijuana (THC) Screen Negative Syphilis Serology 12/04/19 12/04/19 12/04/19 05:53 11:17 11:30 WBC 7.9 RBC 3.23 L Hgb 9.6 L Hct 28.8 L MCV 89.2 MCH 29.8 MCHC 33.4 RDW 14.7 Plt Count 492 H MPV 8.3 Sodium Potassium Chloride Carbon Dioxide Anion Gap BUN Creatinine Est GFR (CKD-EPI)AfAm Est GFR (CKD-EPI)NonAf POC Glucometer 100 112 Random Glucose Calcium Phosphorus Magnesium Iron TIBC Iron Saturation Unsaturated IBC Ferritin Ammonia Vitamin B12 Serum Folate Free T4 Urine Color Urine Appearance Urine pH Ur Specific [place] Urine Protein Urine Glucose (UA) Urine Ketones Urine Blood Urine Nitrite Urine Bilirubin Urine Urobilinogen Ur Leukocyte Esterase Urine WBC (Auto) Urine RBC (Auto) Urine Casts (Auto) U Pathogenic Cast Auto U Epithel Cells (Auto) Urine Bacteria (Auto) Ur Random Creatinine Ur Random Sodium Ur Random Potassium Ur Random Chloride Opiates Screen Methadone Screen Barbiturate Screen Phencyclidine Screen Ur Amphetamines Screen MDMA (Ecstasy) Screen Benzodiazepines Screen Cocaine Screen U Marijuana (THC) Screen Syphilis Serology 12/04/19 12/04/1912/03/20 11:30 11:30 11:30 WBC RBC Hgb Hct MCV MCH MCHC RDW Plt Count MPV Sodium 135 L Potassium 4.9 Chloride 104 Carbon Dioxide 21 Anion Gap 11 BUN 24.7 H Creatinine 1.4 H Est GFR (CKD-EPI)AfAm 45.58 Est GFR (CKD-EPI)NonAf 39.33 POC Glucometer Random Glucose 110 H Calcium 7.9 L Phosphorus 3.1 Magnesium 1.2 L Iron TIBC Iron Saturation Unsaturated IBC Ferritin Ammonia 41.80 H Vitamin B12 Serum Folate Free T4 Urine Color Urine Appearance Urine pH Ur Specific [place] Urine Protein Urine Glucose (UA) Urine Ketones Urine Blood Urine Nitrite Urine Bilirubin Urine Urobilinogen Ur Leukocyte Esterase Urine WBC (Auto) Urine RBC (Auto) Urine Casts (Auto) U Pathogenic Cast Auto U Epithel Cells (Auto) Urine Bacteria (Auto) Ur Random Creatinine Ur Random Sodium Ur Random Potassium Ur Random Chloride Opiates Screen Methadone Screen Barbiturate Screen Phencyclidine Screen Ur Amphetamines Screen MDMA (Ecstasy) Screen Benzodiazepines Screen Cocaine Screen U Marijuana (THC) Screen Syphilis Serology Reactive A* 12/04/19 12/04/19 12:30 12:30 WBC RBC Hgb Hct MCV MCH MCHC RDW Plt Count MPV Sodium Potassium Chloride Carbon Dioxide Anion Gap BUN Creatinine Est GFR (CKD-EPI)AfAm Est GFR (CKD-EPI)NonAf POC Glucometer Random Glucose Calcium Phosphorus Magnesium Iron TIBC Iron Saturation Unsaturated IBC Ferritin Ammonia Vitamin B12 Serum Folate Free T4 Urine Color Urine Appearance Urine pH Ur Specific [place] Urine Protein Urine Glucose (UA) Urine Ketones Urine Blood Urine Nitrite Urine Bilirubin Urine Urobilinogen Ur Leukocyte Esterase Urine WBC (Auto) Urine RBC (Auto) Urine Casts (Auto) U Pathogenic Cast Auto U Epithel Cells (Auto) Urine Bacteria (Auto) Ur Random Creatinine 121.0 Ur Random Sodium 70 Ur Random Potassium 20.0 L Ur Random Chloride 98 L Opiates Screen Methadone Screen Barbiturate Screen Phencyclidine Screen Ur Amphetamines Screen MDMA (Ecstasy) Screen Benzodiazepines Screen Cocaine Screen U Marijuana (THC) Screen Syphilis Serology Current Medications Generic Name Dose Route Start Last Admin Trade Name Freq PRN Reason Stop Dose Admin Amlodipine Besylate 5 mg 12/03/19 17:00 12/04/19 11:15 Norvasc - PO 5 mg DAILY LENARD Administration Aspirin 81 mg 12/04/19 10:00 12/04/19 11:15 Asa - PO 81 mg DAILY LENARD Administration Atorvastatin Calcium 40 mg 12/03/19 22:00 12/04/19 00:21 Lipitor - PO 40 mg HS LENARD Administration Cyanocobalamin 100 mcg 12/04/19 10:00 12/04/19 15:43 Vitamin B12 - PO 100 mcg DAILY LENARD Administration Ferrous Sulfate 325 mg 12/04/19 10:00 12/04/19 11:15 Feosol - PO 325 mg DAILY LENARD Administration Heparin Sodium (Porcine) 5,000 unit 12/03/19 22:00 12/04/19 15:41 Heparin - SQ Not Given TID [facility] Sodium Chloride 1,000 mls @ 100 mls/hr 12/03/19 18:29 12/03/19 18:51 Normal Saline - IV 100 mls/hr ASDIR [facility] Administration Insulin Aspart 1 vial 12/03/19 16:30 12/04/19 11:19 Novolog Vial Sliding Scale - SQ Not Given TIDAC [facility] Protocol Prednisolone Acetate 1 drop 12/03/19 18:00 12/04/19 15:43 Pred Forte 1% - OU 1 drop QID [facility] Administration Tiotropium [place] 2 puff 12/04/19 10:00 12/04/19 11:18 Spiriva Respimat IH 2 puff DAILY [facility] Administration Home Medications Medication Instructions Recorded Acetaminophen [Pain Reliever] 500 mg PO BID 11/24/19 Amlodipine Besylate 5 mg PO DAILY 11/24/19 Atorvastatin Ca [Lipitor] 40 mg PO HS 11/24/19 Cyanocobalamin (Vitamin B-12) 100 mcg PO DAILY 11/24/19 [Vitamin B-12] Ferrous Sulfate 325 mg PO DAILY 11/24/19 Insulin Lispro [Admelog Solostar] 100 unit SQ ASDIR 11/24/19 Lisinopril 20 mg PO DAILY 11/25/19 Prednisolone 1% Ophthalmic [Pred 1 drop OU QID 11/25/19 Forte 1% -] Aspirin [ASA -] 81 mg PO DAILY #30 tab.chew 11/26/19 Aspirin 81 mg PO DAILY 12/03/19 Lisinopril 20 mg PO DAILY 12/03/19 Tiotropium [place] [Spiriva] 2 puff IH DAILY 12/03/19 Umeclidinium [place] [Incruse 62.5 mcg IH DAILY 12/03/19 Ellipta] Pantoprazole Sodium [Protonix] 40 mg PO DAILY 12/04/19 metFORMIN HCL [Metformin HCl ER] 750 mg PO BID 12/04/19 ASSESSMENT AND PLAN: 64 year old female resident of [facility] with history of HTN, HLD, DM 2, HepC, Asthma/COPD, GERD, sent to ED with confusion, found to have HAM. Recently discharged from [facility] for hypoglycemia due to Insulin regimen, which was abandoned in favor of Metformin. CT Head - no acute findings, chronic L parieto-cortical infarct, chronic bilateral basal ganglia infarcts, moderate to marked microvascular ischemic changes. 1. Acute Encephalopathy, etiology unclear ? toxic due to opiates (utox pos for opiates, the use of which she denies) ? metabolic secondary to UTI - urine Cx pending. AAO x 2, baseline unknown. Dementia work-up sent including RPR, Ammonia level Collateral history needed from her children 2. HAM - pre-renal, secondary to dehydration Creatinine improving with IV hydration. Hyperkalemia sec to HAM - improved with IV hydration. Nephrology following. 3. Elevated TSH, normal free T4 - for repeat TFTs in 3-4 weeks. 5. Normocytic anemia, Hx of iron and b12 deficiency, on supplementation - Iron/B12/Folate levels now wnl. anemia likely sec to Chronic Disease. No evidence of acute blood loss, will monitor. 6. HTN - continue Norvasc. Lisinopril held due to HAM. 7. DM 2 - Metformin held. Maintain on Novolog as per sliding scale. 8. Asthma/COPD - stable, no evidence of acute exacerbation. Continue home meds - Incruse ellipta, Spiriva. 9. HLD - Continue Statin. 10. GERD - continue PPI. 11. Hypomagnesemia - repleted. 12. Cerebrovascular Disease - as per CT Head findings. No focal neurological deficits. On Aspirin/Statin for secondary Stroke prevention. DVT Px - Heparin SQ
[2019-12-04] MEDS ORDERED: MAGNESIUM SULF 50% (8.12 MEQ/2 ML-1 GM VIAL) IVPB ONE (16:06)
[2019-12-04] MEDS: PANTOPRAZOLE 40 MG TABLET PO SCH (16:41)
--- NOTE | 2019-12-04 16:46 | PN ---
Physical Exam: SUBJECTIVE: Patient seen and examined. A&O x 2. OBJECTIVE: Vital Signs Period Temp Pulse Resp BP Sys/Martinez Pulse Ox Last 24 Hr 98.3 F-99 F 78-110 16-20 104-133/64-77 96-100 GENERAL: Awake, alert, and fully oriented, in no acute distress. HEAD: Normal with no signs of trauma. EYES: Pupils equal, round and reactive to light, extraocular movements intact, sclera anicteric, conjunctiva clear. No lid lag. EARS, NOSE, THROAT: Ears normal, nares patent, oropharynx clear without exudates. Moist mucous membranes. NECK: Normal range of motion, supple without lymphadenopathy, JVD, or masses. LUNGS: Breath sounds equal, clear to auscultation bilaterally. No wheezes, and no crackles. No accessory muscle use. HEART: Regular rate and rhythm, normal S1 and S2 without murmur, rub or gallop. ABDOMEN: Soft, nontender, not distended, normoactive bowel sounds, no guarding, no rebound, no masses. No hepatomegaly or splenomegaly. MUSCULOSKELETAL: Normal range of motion at all joints. No bony deformities or tenderness. No CVA tenderness. UPPER EXTREMITIES: 2+ pulses, warm, well-perfused. No cyanosis. No clubbing. No peripheral edema. LOWER EXTREMITIES: 2+ pulses, warm, well-perfused. No calf tenderness. No peripheral edema. NEUROLOGICAL: Cranial nerves II-XII intact. Normal speech. Normal gait. PSYCHIATRIC: Cooperative. Good eye contact. Appropriate mood and affect. SKIN: Warm, dry, normal turgor, no rashes or lesions noted, normal capillary refill. Laboratory Results - last 24 hr 12/03/19 12/03/19 12/03/19 10:56 18:24 22:40 WBC RBC Hgb Hct MCV MCH MCHC RDW Plt Count MPV Sodium 138 Potassium 4.5 Chloride 109 H Carbon Dioxide 22 Anion Gap 7 L BUN 29.7 H Creatinine 1.8 H Est GFR (CKD-EPI)AfAm 33.64 Est GFR (CKD-EPI)NonAf 29.02 POC Glucometer 93 Random Glucose 86 Calcium 7.2 L Phosphorus Magnesium Iron TIBC Iron Saturation Unsaturated IBC Ferritin Ammonia Vitamin B12 Serum Folate 9 Free T4 1.21 Urine Color Yellow Urine Appearance Cloudy Urine pH 5.0 Ur Specific [place] 1.021 Urine Protein 2+ H Urine Glucose (UA) Negative Urine Ketones Trace H Urine Blood Negative Urine Nitrite Negative Urine Bilirubin Negative Urine Urobilinogen 0.2 Ur Leukocyte Esterase Negative Urine WBC (Auto) 70.7 Urine RBC (Auto) 17.7 Urine Casts (Auto) 5 U Pathogenic Cast Auto None seen U Epithel Cells (Auto) >36 Urine Bacteria (Auto) 1761 Ur Random Creatinine Ur Random Sodium Ur Random Potassium Ur Random Chloride Opiates Screen Methadone Screen Barbiturate Screen Phencyclidine Screen Ur Amphetamines Screen MDMA (Ecstasy) Screen Benzodiazepines Screen Cocaine Screen U Marijuana (THC) Screen Syphilis Serology 12/03/19 12/04/19 12/04/19 22:40 02:00 02:10 WBC RBC Hgb Hct MCV MCH MCHC RDW Plt Count MPV Sodium Potassium Chloride Carbon Dioxide Anion Gap BUN Creatinine Est GFR (CKD-EPI)AfAm Est GFR (CKD-EPI)NonAf POC Glucometer Random Glucose Calcium Phosphorus Magnesium Iron 19 L TIBC 143 L Iron Saturation 13 L Unsaturated IBC 124 L Ferritin 259.0 Ammonia Vitamin B12 1353 H Serum Folate Free T4 Urine Color Yellow Urine Appearance Cloudy Urine pH 5.0 Ur Specific [place] 1.022 Urine Protein 2+ H Urine Glucose (UA) Negative Urine Ketones Negative Urine Blood Negative Urine Nitrite Negative Urine Bilirubin Negative Urine Urobilinogen 0.2 Ur Leukocyte Esterase Negative Urine WBC (Auto) Urine RBC (Auto) Urine Casts (Auto) 4 U Pathogenic Cast Auto U Epithel Cells (Auto) >36 Urine Bacteria (Auto) 1023 Ur Random Creatinine Ur Random Sodium Ur Random Potassium Ur Random Chloride Opiates Screen Positive A* Methadone Screen Negative Barbiturate Screen Negative Phencyclidine Screen Negative Ur Amphetamines Screen Negative MDMA (Ecstasy) Screen Negative Benzodiazepines Screen Negative Cocaine Screen Negative U Marijuana (THC) Screen Negative Syphilis Serology 12/04/19 12/04/19 12/04/19 05:53 11:17 11:30 WBC 7.9 RBC 3.23 L Hgb 9.6 L Hct 28.8 L MCV 89.2 MCH 29.8 MCHC 33.4 RDW 14.7 Plt Count 492 H MPV 8.3 Sodium Potassium Chloride Carbon Dioxide Anion Gap BUN Creatinine Est GFR (CKD-EPI)AfAm Est GFR (CKD-EPI)NonAf POC Glucometer 100 112 Random Glucose Calcium Phosphorus Magnesium Iron TIBC Iron Saturation Unsaturated IBC Ferritin Ammonia Vitamin B12 Serum Folate Free T4 Urine Color Urine Appearance Urine pH Ur Specific [place] Urine Protein Urine Glucose (UA) Urine Ketones Urine Blood Urine Nitrite Urine Bilirubin Urine Urobilinogen Ur Leukocyte Esterase Urine WBC (Auto) Urine RBC (Auto) Urine Casts (Auto) U Pathogenic Cast Auto U Epithel Cells (Auto) Urine Bacteria (Auto) Ur Random Creatinine Ur Random Sodium Ur Random Potassium Ur Random Chloride Opiates Screen Methadone Screen Barbiturate Screen Phencyclidine Screen Ur Amphetamines Screen MDMA (Ecstasy) Screen Benzodiazepines Screen Cocaine Screen U Marijuana (THC) Screen Syphilis Serology 12/04/19 12/04/19 12/04/19 11:30 11:30 11:30 WBC RBC Hgb Hct MCV MCH MCHC RDW Plt Count MPV Sodium 135 L Potassium 4.9 Chloride 104 Carbon Dioxide 21 Anion Gap 11 BUN 24.7 H Creatinine 1.4 H Est GFR (CKD-EPI)AfAm 45.58 Est GFR (CKD-EPI)NonAf 39.33 POC Glucometer Random Glucose 110 H Calcium 7.9 L Phosphorus 3.1 Magnesium 1.2 L Iron TIBC Iron Saturation Unsaturated IBC Ferritin Ammonia 41.80 H Vitamin B12 Serum Folate Free T4 Urine Color Urine Appearance Urine pH Ur Specific [place] Urine Protein Urine Glucose (UA) Urine Ketones Urine Blood Urine Nitrite Urine Bilirubin Urine Urobilinogen Ur Leukocyte Esterase Urine WBC (Auto) Urine RBC (Auto) Urine Casts (Auto) U Pathogenic Cast Auto U Epithel Cells (Auto) Urine Bacteria (Auto) Ur Random Creatinine Ur Random Sodium Ur Random Potassium Ur Random Chloride Opiates Screen Methadone Screen Barbiturate Screen Phencyclidine Screen Ur Amphetamines Screen MDMA (Ecstasy) Screen Benzodiazepines Screen Cocaine Screen U Marijuana (THC) Screen Syphilis Serology Reactive A* 12/04/19 12/04/19 12:30 12:30 WBC RBC Hgb Hct MCV MCH MCHC RDW Plt Count MPV Sodium Potassium Chloride Carbon Dioxide Anion Gap BUN Creatinine Est GFR (CKD-EPI)AfAm Est GFR (CKD-EPI)NonAf POC Glucometer Random Glucose Calcium Phosphorus Magnesium Iron TIBC Iron Saturation Unsaturated IBC Ferritin Ammonia Vitamin B12 Serum Folate Free T4 Urine Color Urine Appearance Urine pH Ur Specific [place] Urine Protein Urine Glucose (UA) Urine Ketones Urine Blood Urine Nitrite Urine Bilirubin Urine Urobilinogen Ur Leukocyte Esterase Urine WBC (Auto) Urine RBC (Auto) Urine Casts (Auto) U Pathogenic Cast Auto U Epithel Cells (Auto) Urine Bacteria (Auto) Ur Random Creatinine 121.0 Ur Random Sodium 70 Ur Random Potassium 20.0 L Ur Random Chloride 98 L Opiates Screen Methadone Screen Barbiturate Screen Phencyclidine Screen Ur Amphetamines Screen MDMA (Ecstasy) Screen Benzodiazepines Screen Cocaine Screen U Marijuana (THC) Screen Syphilis Serology Active Medications Generic Name Dose Route Start Last Admin Trade Name Freq PRN Reason Stop Dose Admin Amlodipine Besylate 5 mg 12/03/19 17:00 12/04/19 11:15 Norvasc - PO 5 mg DAILY LENARD Administration Aspirin 81 mg 12/04/19 10:00 12/04/19 11:15 Asa - PO 81 mg DAILY [facility]ARD Administration Atorvastatin Calcium 40 mg 12/03/19 22:00 12/04/19 00:21 Lipitor - PO 40 mg HS [facility] Administration Cyanocobalamin 100 mcg 12/04/19 10:00 12/04/19 15:43 Vitamin B12 - PO 100 mcg DAILY LENARD Administration Ferrous Sulfate 325 mg 12/04/19 10:00 12/04/19 11:15 Feosol - PO 325 mg DAILY [facility] Administration Heparin Sodium (Porcine) 5,000 unit 12/03/19 22:00 12/04/19 15:41 Heparin - SQ Not Given TID [facility] Sodium Chloride 1,000 mls @ 100 mls/hr 12/03/19 18:29 12/03/19 18:51 Normal Saline - IV 100 mls/hr ASDIR [facility] Administration Insulin Aspart 1 vial 12/03/19 16:30 12/04/19 11:19 Novolog Vial Sliding Scale - SQ Not Given TIDAC [facility] Protocol Pantoprazole Sodium 40 mg 12/04/19 16:15 Protonix - PO DAILY [facility] Prednisolone Acetate 1 drop 12/03/19 18:00 12/04/19 15:43 Pred Forte 1% - OU 1 drop QID [facility] Administration Tiotropium [place] 2 puff 12/04/19 10:00 12/04/19 11:18 Spiriva Respimat IH 2 puff DAILY [facility] Administration ASSESSMENT/PLAN: Pt is a 64 year old female with a PMHx of DM, HTN, Hep C and asthma presenting with AMS admitted for hyperkalemia 5.7. #Acute encephalopathy -A&Ox2 -positive opiates -reactive Syphilis serology; RPR pending -elevated ammonia level -head CT chronic changes, no acute abnormalities #HAM -Cr improved to 1.4; baseline last admission 1.3 -held lasix -NS 75cc/hr; given NS 1L in ED -consulted renal #Hyperkalemia -resolved; no symptoms #Increased TSH -TSH 8.01 -ordered FT4/FT3 -no cold intolerance, constipation -ordered AM cortisol, renin, aldosterone -repeat outpt in 3-4 weeks #Hx anemia -Hgb 9.1, present last admission too; normocytic -Ordered iron panel, B12, folate #Hx HTN -continue home norvasc 5mg daily -held home Lisinopril due to HAM #Hx DM -held home meds -SSI and BGM -On last admission was hypoglycemic, d/c'd all insulins and started on only metformin 750 BID -d/c metformin on admission due to borderline lactic acidosis #Hx asthma -home Ellipta resumed PPx: Heparin 5000u TID FEN NS 75cc/hr Repeat BMP at 6pm Diabetic/sodium diet Dispo: Admitted to med surg. Monitor electrolytes, K+. Repeat BMP. ATTENDING PHYSICIAN STATEMENT I saw and evaluated the patient. I reviewed the resident's note and discussed the case with the resident. I agree with the resident's findings and plan as documented. SUBJECTIVE: OBJECTIVE: ASSESSMENT AND PLAN:
[2019-12-04] MEDS: SODIUM CHLORIDE 1,000 ML IV SCH (17:43)
[2019-12-05] MEDS: HEPARIN NA (PORCINE) 5,000 UNITS/ML 1ML VIAL SQ SCH ×3 (06:19→21:35)
[2019-12-05] MEDS: SODIUM CHLORIDE 1,000 ML IV SCH (06:19)
[2019-12-05] MEDS: INSULIN SLIDING SCALE (NOVOLOG) 1 VIAL SQ SCH ×3 (06:19→17:27)
[2019-12-05 10:41] LABS: BASO % 0.4 % (0-2.0); EOS % 1.1 % (0-4.5); HEMATOCRIT 23.5 % (32.4-45.2); HEMOGLOBIN 7.9 GM/dL (10.7-15.3); LYMPH % 17.9 % (8-40); MCH 29.5 pg (25.7-33.7); MCHC 33.5 g/dl (32.0-36.0); MEAN CELL VOLUME 87.9 fl (80-96); MEAN PLT VOLUME 7.8 fl (7.5-11.1); MONO % 5.8 % (3.8-10.2); NEUT % 74.8 % (42.8-82.8); PLATELET COUNT 449 K/MM3 (134-434); RBC 2.67 M/mm3 (3.60-5.2); RDW 14.7 % (11.6-15.6); WHITE BLOOD COUNT 7.2 K/mm3 (4.0-10.0)
[2019-12-05] MEDS ORDERED: PT OWN MED DRAWER 7, Y5N ONE (10:58)
[2019-12-05] MEDS: PANTOPRAZOLE 40 MG TABLET PO SCH (11:07)
[2019-12-05] MEDS: ASPIRIN 81 MG CHEWABLE TABLETS PO SCH (11:07)
[2019-12-05] MEDS: FERROUS SO4 325 MG TABLET (FP) PO SCH (11:07)
[2019-12-05] MEDS ORDERED: ACETAMINOPHEN 325 MG TABLET (FP) PO PRN (11:07)
[2019-12-05] MEDS: CYANOCOBALAMIN (VITAMIN B-12) 100 MCG TABLET PO SCH (11:07)
[2019-12-05] MEDS: prednisoLONE ACETATE 1% OPHTH SUSP 5 ML BOTTLE OU SCH ×5 (11:08→21:36)
[2019-12-05] MEDS: TIOTROPIUM BROMIDE 2.5 MCG (SPIRIVA) RESPIMAT INHALER IH SCH (11:08)
[2019-12-05] MEDS: amLODIPine BESYLATE 5 MG TABLET (FP) PO SCH (11:08)
[2019-12-05 11:15] LABS: BILIRUBIN,TOTAL 0.3 mg/dL (0.2-1); CALCIUM 7.1 mg/dL (8.5-10.1); MAGNESIUM 1.5 mg/dL (1.8-2.4); PHOSPHOROUS 2.4 mg/dL (2.5-4.9); POTASSIUM 4.5 mmol/L (3.5-5.1)
--- NOTE | 2019-12-05 12:50 | CONSULT ---
Consult - text type - Consultation Consultation Note: Neurology CHIEF COMPLAINT: Altered mental status PCP: Dr. Marrero HISTORY OF PRESENT ILLNESS: Pt is a 64 year old F with PMHx of HTN, DM, HepC, asthma presenting to the ED from [facility] with altered mental status. Pt is A&O x 3 at baseline, and was recently discharged from [facility] for hypoglycemia resolved for taking insulin meds without eating, regimen was changed to metformin 750mg BID daily. Consulted because patient with AMS and labs with positive RPR with interest in possible neurosyphilis. CT head completed and without acute changes. Per notes, patient has been improving in mental status. Had hyperkalemia which renal managing and correcting. Leukocytosis and elevated ammonia on labs with possible toxic metabolic encephalopathy also underlying. Also positive for opiates on labs. Recent Travel: Denies PAST MEDICAL HISTORY: As stated above PAST SURGICAL HISTORY: Denies Social History: Smoking: denies Alcohol: denies Drugs: denies Allergies No Known Allergies Allergy (Verified 12/03/19 10:39) HOME MEDICATIONS: Home Medications Medication Instructions Recorded Acetaminophen [Pain Reliever] 500 mg PO BID 11/24/19 Amlodipine Besylate 5 mg PO DAILY 11/24/19 Atorvastatin Ca [Lipitor] 40 mg PO HS 11/24/19 Cyanocobalamin (Vitamin B-12) 100 mcg PO DAILY 11/24/19 [Vitamin B-12] Ferrous Sulfate 325 mg PO DAILY 11/24/19 Insulin Lispro [Admelog Solostar] 100 unit SQ ASDIR 11/24/19 Lisinopril 20 mg PO DAILY 11/25/19 Prednisolone 1% Ophthalmic [Pred 1 drop OU QID 11/25/19 Forte 1% -] Aspirin [ASA -] 81 mg PO DAILY #30 tab.chew 11/26/19 Aspirin 81 mg PO DAILY 12/03/19 Glipizide 10 mg PO BID 12/03/19 Insulin Glargine,Hum.rec.anlog 20 unit SQ DAILY 12/03/19 [Basaglar Kwikpen U-100] Lisinopril 20 mg PO DAILY 12/03/19 Tiotropium [place] [Spiriva] 2 puff IH DAILY 12/03/19 Umeclidinium [place] [Incruse 62.5 mcg IH DAILY 12/03/19 Ellipta] Active Medications Acetaminophen (Tylenol -) 650 mg PO Q6H PRN PRN Reason: Pain Scale 7-10 Amlodipine Besylate (Norvasc -) 5 mg PO DAILY [facility] Last Admin: 12/05/19 11:08 Dose: 5 mg Documented by: Aspirin (Asa -) 81 mg PO DAILY [facility] Last Admin: 12/05/19 11:07 Dose: 81 mg Documented by: Atorvastatin Calcium (Lipitor -) 40 mg PO HS [facility] Last Admin: 12/04/19 21:08 Dose: 40 mg Documented by: Cyanocobalamin (Vitamin B12 -) 100 mcg PO DAILY [facility] Last Admin: 12/05/19 11:07 Dose: 100 mcg Documented by: Ferrous Sulfate (Feosol -) 325 mg PO DAILY [facility] Last Admin: 12/05/19 11:07 Dose: 325 mg Documented by: Heparin Sodium (Porcine) (Heparin -) 5,000 unit SQ TID [facility] Last Admin: 12/05/19 06:19 Dose: Not Given Documented by: Sodium Chloride (Normal Saline -) 1,000 mls @ 100 mls/hr IV ASDIR [facility] Last Admin: 12/05/19 06:19 Dose: 100 mls/hr Documented by: Potassium Phosphate 15 mm/ (Sodium Chloride) 255 mls @ 62.5 mls/hr IVPB ONCE ONE Stop: 12/05/19 16:49 Insulin Aspart (Nov[facility] Vial Sliding Scale -) [facility] Last Admin: 12/05/19 11:09 Dose: Not Given Documented by: Magnesium Sulfate (Magnesium Sulfate) 2 gm IVPB ONCE ONE Stop: 12/05/19 12:45 Pantoprazole Sodium (Protonix -) 40 mg PO DAILY [facility] Last Admin: 12/05/19 11:07 Dose: 40 mg Documented by: Prednisolone Acetate (Pred Forte 1% -) 1 drop OU QID [facility] Last Admin: 12/05/19 11:28 Dose: Not Given Documented by: Tiotropium [place] (Spiriva Respimat) 2 puff IH DAILY [facility] Last Admin: 12/05/19 11:08 Dose: 2 puff Documented by: REVIEW OF SYSTEMS CONSTITUTIONAL: Absent: fever, chills, diaphoresis, generalized weakness, malaise, loss of appetite, weight change HEENT: Absent: rhinorrhea, nasal congestion, throat pain, throat swelling, difficulty swallowing, mouth swelling, ear pain, eye pain, visual changes CARDIOVASCULAR: Absent: chest pain, syncope, palpitations, irregular heart rate, lightheadedness, peripheral edema RESPIRATORY: Absent: cough, shortness of breath, dyspnea with exertion, orthopnea, wheezing, stridor, hemoptysis GASTROINTESTINAL: Absent: abdominal pain, abdominal distension, nausea, vomiting, diarrhea, constipation, melena, hematochezia GENITOURINARY: Absent: dysuria, frequency, urgency, hesitancy, hematuria, flank pain, genital pain MUSCULOSKELETAL: Absent: myalgia, arthralgia, joint swelling, back pain, neck pain SKIN: Absent: rash, itching, pallor HEMATOLOGIC/IMMUNOLOGIC: Absent: easy bleeding, easy bruising, lymphadenopathy, frequent infections ENDOCRINE: Absent: unexplained weight gain, unexplained weight loss, heat intolerance, cold intolerance NEUROLOGIC: mental status changes on admission, improved Absent: headache, focal weakness or paresthesias, dizziness, unsteady gait, seizure, bladder or bowel incontinence PSYCHIATRIC: Absent: anxiety, depression, suicidal or homicidal ideation, hallucinations. PHYSICAL EXAMINATION Vital Signs - 24 hr 12/03/19 10:20 Temperature 97.8 F Pulse Rate 83 Respiratory 18 Rate Blood Pressure 100/58 L O2 Sat by Pulse 99 Oximetry (%) GENERAL: Awake, alert, and fully oriented, in no acute distress. HEAD: Normal with no signs of trauma. EYES: Pupils equal, round and reactive to light, extraocular movements intact, sclera anicteric, conjunctiva clear. No lid lag. EARS, NOSE, THROAT: Ears normal, nares patent, oropharynx clear without exudates. Moist mucous membranes. NECK: Normal range of motion, supple without lymphadenopathy, JVD, or masses. LUNGS: Breath sounds equal, clear to auscultation bilaterally. No wheezes, and no crackles. No accessory muscle use. HEART: Regular rate and rhythm, normal S1 and S2 without murmur, rub or gallop. ABDOMEN: Soft, nontender, not distended, normoactive bowel sounds, no guarding, no rebound, no masses. No hepatomegaly or splenomegaly. MUSCULOSKELETAL: Normal range of motion at all joints. No bony deformities or tenderness. No CVA tenderness. UPPER EXTREMITIES: 2+ pulses, warm, well-perfused. No cyanosis. No clubbing. No peripheral edema. LOWER EXTREMITIES: 2+ pulses, warm, well-perfused. No calf tenderness. No peripheral edema. NEUROLOGICAL: Cranial nerves II-XII intact. Normal speech. Moves all extremities equally, sensory intact PSYCHIATRIC: Cooperative. Good eye contact. Appropriate mood and affect. SKIN: Warm, dry, normal turgor, no rashes or lesions noted, normal capillary refill. Laboratory Results - last 24 hr 12/03/19 12/03/19 12/03/19 12:04 12:04 12:04 WBC 12.2 H RBC 3.11 L Hgb 9.1 L Hct 28.0 L MCV 90.0 MCH 29.4 MCHC 32.7 RDW 14.7 Plt Count 521 H MPV 8.1 Absolute Neuts (auto) 10.6 H Neutrophils % 87.3 H Lymphocytes % 7.5 L Monocytes % 4.7 Eosinophils % 0.0 Basophils % 0.5 Nucleated RBC % 0 Sodium 133 L Potassium 5.6 H Chloride 105 Carbon Dioxide 21 Anion Gap 8 BUN 28.7 H Creatinine 2.1 H Est GFR (CKD-EPI)AfAm 27.92 Est GFR (CKD-EPI)NonAf 24.09 Random Glucose 223 H Lactic Acid Calcium 7.9 L Total Bilirubin 0.2 AST 27 ALT 11 L Alkaline Phosphatase 290 H Total Protein 8.9 H Albumin 2.7 L TSH 8.01 H 12/03/19 12:04 WBC RBC Hgb Hct MCV MCH MCHC RDW Plt Count MPV Absolute Neuts (auto) Neutrophils % Lymphocytes % Monocytes % Eosinophils % Basophils % Nucleated RBC % Sodium Potassium Chloride Carbon Dioxide Anion Gap BUN Creatinine Est GFR (CKD-EPI)AfAm Est GFR (CKD-EPI)NonAf Random Glucose Lactic Acid 2.0 Calcium Total Bilirubin AST ALT Alkaline Phosphatase Total Protein Albumin TSH ASSESSMENT/PLAN: 64 year old F with PMHx of HTN, DM, HepC, asthma presenting to the ED from [facility] with altered mental status. Pt is A&O x 3 at baseline, and was recently discharged from [facility] for hypoglycemia resolved for taking insulin meds without eating, regimen was changed to metformin 750mg BID daily. Consulted because patient with AMS and labs with positive RPR with interest in possible neurosyphilis. CT head completed and without acute changes. Per notes, patient has been improving in mental status. Had hyperkalemia which renal managing and correcting. Leukocytosis and elevated ammonia on labs with possible toxic metabolic encephalopathy also underlying. Also positive for opiates on labs. Would continue medical optimization, management of HAM, trend ammonia levels and consider lactulose, hydration. Mental status may also be from opiates not yet cleared from her system. Multiple possibile etiologies. With improving mental status, less likely to be neurosyphlilis especially since patient not receiving treatment for this. If definitive investigation needed, then fluoro guided spinal tap can be considered. Continue to monitor mental status and optimize underlying conditions. No objection to continued B12. Monitor DM, maintain euglycemic range.
[2019-12-05] MEDS ORDERED: MAGNESIUM 2GM/50ML STERILE WATER IVPB IVPB ONE (13:15)
[2019-12-05] MEDS ORDERED: SODIUM PHOSPHATE - 15 MM in SODIUM CHLORIDE 250 ML IV ONE (13:30)
--- NOTE | 2019-12-05 13:46 | CONS ---
INFECTIOUS DISEASE CONSULTATION DATE OF CONSULTATION: DATE OF DICTATION: 12/05/2019 HISTORY: A 64-year-old female who is evaluated for positive syphilis serology. She was admitted to the hospital on December 03, 2019, with altered mental status. She is a resident of a residential facility. According to the notes, she had presented from [facility] with altered mental status. She is normally awake, alert and oriented. She had recently been discharged from [facility] for hypoglycemia. In the emergency room she was noted to have improved mentation, but was still slightly disoriented. Her ER course was complicated by elevated white blood cell count of 12.2 and azotemia. She was admitted with the diagnosis of altered mental status, possible toxic metabolic encephalopathy as well as acute kidney injury. As part of the altered mental status workup she was found to have a positive syphilis serology. The RPR is pending. Patient states that she had syphilis 20 years ago and was treated. She has not been sexually active for many years. She is unaware of her HIV status. In the emergency room she was noted to be hypoglycemia with elevated BUN and creatinine. Urine culture was obtained and was positive for normal alyssia. CAT scan of the head was performed and was negative for acute infarct or infiltrate. Chest x-ray negative for acute pneumonia. PAST MEDICAL HISTORY: Positive for diabetes mellitus, hypertension, hyperlipidemia. ALLERGIES: No known allergies. MEDICATIONS: Include iron, heparin, Norvasc, Lipitor, Tylenol, aspirin, Protonix. SOCIAL HISTORY: She resides in a residential facility. Positive history of tobacco use. A Neurology evaluation was requested and is pending. PHYSICAL EXAMINATION: General: She is awake and alert. She is in no acute distress. She offers no complaint. She is awake and alert and oriented x3. Vital Signs: Temperature 97.7, blood pressure 126/69, pulse 78 regular, respirations 19 per minute. HEENT: Sclerae are anicteric. Heart: Sounds S1, S2. Lungs: Clear. Abdomen: Soft and nontender. Extremities: Negative for edema. No rash noted. LABORATORY DATA: White count 7.2, hematocrit 23.5, platelet count 449. BUN 14, creatinine 1.0, total bilirubin 7.0, alkaline phosphatase . Urine analysis negative. Toxicology screen positive for opiates. Serology positive for syphilis serology. RPR is pending. IMPRESSION: 1. Status post altered mental status, unclear etiology. 2. Positive syphilis serology. 3. Diabetes mellitus. 4. Hypertension. 5. Hyperlipidemia. Await RPR. Further recommendations pending RPR. Will contact Department of Health regarding history of positive serology and treatment history. No objection to outpatient treatment. Thank you for the kind referral. IVETT ZALDIVAR M.D. [id number]
--- NOTE | 2019-12-05 15:25 | PN ---
Physical Exam: SUBJECTIVE: Patient seen and examined. No acute complaints OBJECTIVE: Vital Signs Period Temp Pulse Resp BP Sys/Martinez Pulse Ox Last 24 Hr 97.7 F-98.5 F 77-110 19-20 114-135/56-83 96-100 GENERAL: Awake, a, in no acute distress. HEAD: Normal with no signs of trauma. EYES: Pupils equal, round and reactive to light, extraocular movements intact, sclera anicteric, conjunctiva clear. No lid lag. EARS, NOSE, THROAT: Ears normal, nares patent, oropharynx clear without exudates. Moist mucous membranes. NECK: Normal range of motion, supple without lymphadenopathy, JVD, or masses. LUNGS: Breath sounds equal, clear to auscultation bilaterally. No wheezes, and no crackles. No accessory muscle use. HEART: Regular rate and rhythm, normal S1 and S2 without murmur, rub or gallop. ABDOMEN: Soft, nontender, not distended, normoactive bowel sounds, no guarding, no rebound, no masses. No hepatomegaly or splenomegaly. MUSCULOSKELETAL: Normal range of motion at all joints. No bony deformities or tenderness. No CVA tenderness. UPPER EXTREMITIES: 2+ pulses, warm, well-perfused. No cyanosis. No clubbing. No peripheral edema. LOWER EXTREMITIES: 2+ pulses, warm, well-perfused. No calf tenderness. No peripheral edema. NEUROLOGICAL: Cranial nerves II-XII intact. Normal speech. Normal gait. Unkept. A&O x 2. PSYCHIATRIC: Cooperative. Good eye contact. Appropriate mood and affect. SKIN: Warm, dry, normal turgor, no rashes or lesions noted, normal capillary refill. Laboratory Results - last 24 hr 12/04/19 12/04/19 12/04/19 11:30 11:30 16:44 WBC RBC Hgb Hct MCV MCH MCHC RDW Plt Count MPV Absolute Neuts (auto) Neutrophils % Lymphocytes % Monocytes % Eosinophils % Basophils % Nucleated RBC % Sodium Potassium Chloride Carbon Dioxide Anion Gap BUN Creatinine Est GFR (CKD-EPI)AfAm Est GFR (CKD-EPI)NonAf POC Glucometer 143 Random Glucose Calcium Phosphorus Magnesium Total Bilirubin AST ALT Alkaline Phosphatase Total Protein Albumin Alcohol, Quantitative < 3 RPR Titer Reactive 1:1 H 12/05/19 12/05/19 12/05/19 06:18 10:15 10:15 WBC 7.2 RBC 2.67 L Hgb 7.9 L Hct 23.5 L D MCV 87.9 MCH 29.5 MCHC 33.5 RDW 14.7 Plt Count 449 H MPV 7.8 Absolute Neuts (auto) 5.4 Neutrophils % 74.8 Lymphocytes % 17.9 D Monocytes % 5.8 Eosinophils % 1.1 D Basophils % 0.4 Nucleated RBC % 0 Sodium 136 Potassium 4.5 Chloride 109 H Carbon Dioxide 21 Anion Gap 7 L BUN 14.0 Creatinine 1.0 Est GFR (CKD-EPI)AfAm 68.47 Est GFR (CKD-EPI)NonAf 59.07 POC Glucometer 116 Random Glucose 148 H Calcium 7.1 L Phosphorus 2.4 L Magnesium 1.5 L Total Bilirubin 0.3 AST 25 ALT 9 L Alkaline Phosphatase 236 H Total Protein 7.0 Albumin 2.0 L Alcohol, Quantitative RPR Titer 12/05/19 10:58 WBC RBC Hgb Hct MCV MCH MCHC RDW Plt Count MPV Absolute Neuts (auto) Neutrophils % Lymphocytes % Monocytes % Eosinophils % Basophils % Nucleated RBC % Sodium Potassium Chloride Carbon Dioxide Anion Gap BUN Creatinine Est GFR (CKD-EPI)AfAm Est GFR (CKD-EPI)NonAf POC Glucometer 148 Random Glucose Calcium Phosphorus Magnesium Total Bilirubin AST ALT Alkaline Phosphatase Total Protein Albumin Alcohol, Quantitative RPR Titer Active Medications Generic Name Dose Route Start Last Admin Trade Name Freq PRN Reason Stop Dose Admin Acetaminophen 650 mg 12/05/19 11:07 Tylenol - PO Q6H PRN Pain Scale 7-10 Amlodipine Besylate 5 mg 12/03/19 17:00 12/05/19 11:08 Norvasc - PO 5 mg DAILY [facility] Administration Aspirin 81 mg 12/04/19 10:00 12/05/19 11:07 Asa - PO 81 mg DAILY [facility] Administration Atorvastatin Calcium 40 mg 12/03/19 22:00 12/04/19 21:08 Lipitor - PO 40 mg HS LENARD Administration Cyanocobalamin 100 mcg 12/04/19 10:00 12/05/19 11:07 Vitamin B12 - PO 100 mcg DAILY [facility] Administration Ferrous Sulfate 325 mg 12/04/19 10:00 12/05/19 11:07 Feosol - PO 325 mg DAILY [facility] Administration Heparin Sodium (Porcine) 5,000 unit 12/03/19 22:00 12/05/19 14:24 Heparin - SQ Not Given TID [facility] Sodium Phosphate 15 mm/ Sodium 255 mls @ 62.5 mls/hr 12/05/19 13:30 12/05/19 14:22 Chloride IV 12/05/19 17:34 Not Given ONCE ONE Insulin Aspart 1 vial 12/03/19 16:30 12/05/19 11:09 Novolog Vial Sliding Scale - SQ Not Given TIDAC [facility] Protocol Nicotine 7 mg 12/06/19 10:00 Nicoderm Patch - TD DAILY [facility] Pantoprazole Sodium 40 mg 12/04/19 16:15 12/05/19 11:07 Protonix - PO 40 mg DAILY [facility] Administration Prednisolone Acetate 1 drop 12/03/19 18:00 12/05/19 14:24 Pred Forte 1% - OU Not Given QID [facility] Tiotropium [place] 2 puff 12/04/19 10:00 12/05/19 11:08 Spiriva Respimat IH 2 puff DAILY [facility] Administration ASSESSMENT/PLAN: Pt is a 64 year old female with a PMHx of DM, HTN, Hep C and asthma presenting with AMS admitted for hyperkalemia 5.7. #Acute encephalopathy -A&Ox2 -positive opiates -reactive Syphilis serology; RPR 1:1 -neurology consulted; no acute intervention, -ID consulted -elevated ammonia level; trend per neuro -head CT chronic changes, no acute abnormalities #HAM -Cr improved to 1.4; baseline last admission 1.3 -held lasix -NS 75cc/hr; given NS 1L in ED -consulted renal #Hyperkalemia -resolved; no symptoms #Increased TSH -TSH 8.01 -ordered FT4/FT3 -no cold intolerance, constipation -ordered AM cortisol, renin, aldosterone -repeat outpt in 3-4 weeks #Hx anemia -Decreased Hgb from 9.6 to 7.9 -dc fluids, follow up in AM, likely dilutional #Hx HTN -continue home norvasc 5mg daily -held home Lisinopril due to HAM on admission #Hx DM -held home meds -SSI and BGM -On last admission was hypoglycemic, d/c'd all insulins and started on only metformin 750 BID -held metformin on admission #Hx asthma -home Ellipta resumed PPx: Heparin 5000u TID FEN Held fluids Repeat BMP at 6pm Diabetic/sodium diet Dispo: Admitted to med surg. Monitor in AM. Visit type - Emergency Visit Emergency Visit: Yes ED Registration Date: 12/03/19 Care time: The patient presented to the Emergency Department on the above date and was hospitalized for further evaluation of their emergent condition. - New Patient This patient is new to me today: No - Critical Care Critical Care patient: No - Medication Review Med list reviewed for High Risk Meds patients 65 and older: Yes ATTENDING PHYSICIAN STATEMENT I saw and evaluated the patient. I reviewed the resident's note and discussed the case with the resident. I agree with the resident's findings and plan as documented. SUBJECTIVE: OBJECTIVE: ASSESSMENT AND PLAN:
--- NOTE | 2019-12-05 15:29 | PN ---
Teaching Attending Note Name of Resident: Ellen Castelan ATTENDING PHYSICIAN STATEMENT I saw and evaluated the patient. I reviewed the resident's note and discussed the case with the resident. I agree with the resident's findings and plan as documented. SUBJECTIVE: Feeling well, no complaints. Denies confusion. Denies lightheadedness/headache/visual disturbance/limb numbness or weakness. Denies fever/chills/dysuria/hematuria. Verbally hostile OBJECTIVE: Afebrile, Hemodynamically Stable. No tremor/diaphoresis. Last Vital Signs Temp Pulse Resp BP Pulse Ox 98.2 F 102 H 20 134/83 97 12/05/19 14:00 12/05/19 14:00 12/05/19 14:00 12/05/19 14:12/05/19 14:00 HEENT - Atraumatic, Normocephalic. HUMBERTO. Heart - S1, S2, RRR Lungs - clear to auscultation Abdomen - Soft, mild epigastric tenderness. Bowel Sounds normal. Extremities - no edema, no calf tenderness. Neuro - AAO x 2. Tone/Power normal. Laboratory Results - last 24 hr 12/04/19 12/04/19 12/04/19 11:30 11:30 16:44 WBC RBC Hgb Hct MCV MCH MCHC RDW Plt Count MPV Absolute Neuts (auto) Neutrophils % Lymphocytes % Monocytes % Eosinophils % Basophils % Nucleated RBC % Sodium Potassium Chloride Carbon Dioxide Anion Gap BUN Creatinine Est GFR (CKD-EPI)AfAm Est GFR (CKD-EPI)NonAf POC Glucometer 143 Random Glucose Calcium Phosphorus Magnesium Total Bilirubin AST ALT Alkaline Phosphatase Total Protein Albumin Alcohol, Quantitative < 3 RPR Titer Reactive 1:1 H 12/05/19 12/05/19 12/05/19 06:18 10:15 10:15 WBC 7.2 RBC 2.67 L Hgb 7.9 L Hct 23.5 L D MCV 87.9 MCH 29.5 MCHC 33.5 RDW 14.7 Plt Count 449 H MPV 7.8 Absolute Neuts (auto) 5.4 Neutrophils % 74.8 Lymphocytes % 17.9 D Monocytes % 5.8 Eosinophils % 1.1 D Basophils % 0.4 Nucleated RBC % 0 Sodium 136 Potassium 4.5 Chloride 109 H Carbon Dioxide 21 Anion Gap 7 L BUN 14.0 Creatinine 1.0 Est GFR (CKD-EPI)AfAm 68.47 Est GFR (CKD-EPI)NonAf 59.07 POC Glucometer 116 Random Glucose 148 H Calcium 7.1 L Phosphorus 2.4 L Magnesium 1.5 L Total Bilirubin 0.3 AST 25 ALT 9 L Alkaline Phosphatase 236 H Total Protein 7.0 Albumin 2.0 L Alcohol, Quantitative RPR Titer 12/05/19 10:58 WBC RBC Hgb Hct MCV MCH MCHC RDW Plt Count MPV Absolute Neuts (auto) Neutrophils % Lymphocytes % Monocytes % Eosinophils % Basophils % Nucleated RBC % Sodium Potassium Chloride Carbon Dioxide Anion Gap BUN Creatinine Est GFR (CKD-EPI)AfAm Est GFR (CKD-EPI)NonAf POC Glucometer 148 Random Glucose Calcium Phosphorus Magnesium Total Bilirubin AST ALT Alkaline Phosphatase Total Protein Albumin Alcohol, Quantitative RPR Titer Current Medications Generic Name Dose Route Start Last Admin Trade Name Freq PRN Reason Stop Dose Admin Acetaminophen 650 mg 12/05/19 11:07 Tylenol - PO Q6H PRN Pain Scale 7-10 Amlodipine Besylate 5 mg 12/03/19 17:00 12/05/19 11:08 Norvasc - PO 5 mg DAILY [facility] Administration Aspirin 81 mg 12/04/19 10:00 12/05/19 11:07 Asa - PO 81 mg DAILY [facility] Administration Atorvastatin Calcium 40 mg 12/03/19 22:00 12/04/19 21:08 Lipitor - PO 40 mg HS [facility] Administration Cyanocobalamin 100 mcg 12/04/19 10:00 12/05/19 11:07 Vitamin B12 - PO 100 mcg DAILY [facility] Administration Ferrous Sulfate 325 mg 12/04/19 10:00 12/05/19 11:07 Feosol - PO 325 mg DAILY [facility] Administration Heparin Sodium (Porcine) 5,000 unit 12/03/19 22:00 12/05/19 14:24 Heparin - SQ Not Given TID [facility] Sodium Phosphate 15 mm/ Sodium 255 mls @ 62.5 mls/hr 12/05/19 13:30 12/05/19 14:22 Chloride IV 12/05/19 17:34 Not Given ONCE ONE Insulin Aspart 1 vial 12/03/19 16:30 12/05/19 11:09 Novolog Vial Sliding Scale - SQ Not Given TIDAC [facility] Protocol Nicotine 7 mg 12/06/19 10:00 Nicoderm Patch - TD DAILY [facility] Pantoprazole Sodium 40 mg 12/04/19 16:15 12/05/19 11:07 Protonix - PO 40 mg DAILY [facility] Administration Prednisolone Acetate 1 drop 12/03/19 18:00 12/05/19 14:24 Pred Forte 1% - OU Not Given QID [facility] Tiotropium [place] 2 puff 12/04/19 10:00 12/05/19 11:08 Spiriva Respimat IH 2 puff DAILY [facility] Administration Home Medications Medication Instructions Recorded Acetaminophen [Pain Reliever] 500 mg PO BID 11/24/19 Amlodipine Besylate 5 mg PO DAILY 11/24/19 Atorvastatin Ca [Lipitor] 40 mg PO HS 11/24/19 Cyanocobalamin (Vitamin B-12) 100 mcg PO DAILY 11/24/19 [Vitamin B-12] Ferrous Sulfate 325 mg PO DAILY 11/24/19 Insulin Lispro [Admelog Solostar] 100 unit SQ ASDIR 11/24/19 Lisinopril 20 mg PO DAILY 11/25/19 Prednisolone 1% Ophthalmic [Pred 1 drop OU QID 11/25/19 Forte 1% -] Aspirin [ASA -] 81 mg PO DAILY #30 tab.chew 11/26/19 Aspirin 81 mg PO DAILY 12/03/19 Lisinopril 20 mg PO DAILY 12/03/19 Tiotropium [place] [Spiriva] 2 puff IH DAILY 12/03/19 Umeclidinium [place] [Incruse 62.5 mcg IH DAILY 12/03/19 Ellipta] Pantoprazole Sodium [Protonix] 40 mg PO DAILY 12/04/19 metFORMIN HCL [Metformin HCl ER] 750 mg PO BID 12/04/19 ASSESSMENT AND PLAN: 64 year old female resident of [facility] with history of HTN, HLD, DM 2, HepC, Asthma/COPD, GERD, sent to ED with confusion, found to have HAM. Recently discharged from [facility] for hypoglycemia due to Insulin regimen, which was abandoned in favor of Metformin. CT Head - no acute findings, chronic L parieto-cortical infarct, chronic bilateral basal ganglia infarcts, moderate to marked microvascular ischemic changes. 1. Acute Encephalopathy, etiology unclear ? toxic due to opiates (utox pos for opiates, the use of which she denies) AAO x 2, baseline unknown. Dementia work-up complete including positive RPR 1:1 Collateral history needed from her children Neurology and ID consults evaluated - further management recommendations as per ID/Neuro 2. HAM - pre-renal, secondary to dehydration HAM resolved with IV hydration. Hyperkalemia sec to HAM - improved with IV hydration. Nephrology following. 3. Elevated TSH, normal free T4 - for repeat TFTs in 3-4 weeks. 5. Normocytic anemia, Hx of Iron and B12 deficiency, on supplementation - Iron/B12/Folate levels now wnl. Anemia likely sec to Chronic Disease. No evidence of acute blood loss, will monitor. Drop in Hb of almost 2g overnight, likely sec to hydration/hemodilution. No reported melena/hematochezia. IV hydration stopped. Monitor H/H. 6. HTN - continue Norvasc. Lisinopril held due to HAM. Can consider resuming 12/05 7. DM 2 - Metformin held. Maintain on Novolog as per sliding scale. 8. Asthma/COPD - stable, no evidence of acute exacerbation. Continue home meds - Incruse ellipta, Spiriva. 9. HLD - Continue Statin. 10. GERD - continue PPI. 11. Hypomagnesemia/Hypophosphatemia - repleted. 12. Hx of Cerebrovascular Disease - as per CT Head findings. No focal neurological deficits. On Aspirin/Statin for secondary Stroke prevention. DVT Px - Heparin SQ
--- NOTE | 2019-12-05 15:44 | PN ---
Progress Note, Physician History of Present Illness: Pt seen and examined at bedside. She is awake and alert. She denies shortness of breath. - Current Medication List Current Medications: Active Medications Acetaminophen (Tylenol -) 650 mg PO Q6H PRN PRN Reason: Pain Scale 7-10 Amlodipine Besylate (Norvasc -) 5 mg PO DAILY [facility] Last Admin: 12/05/19 11:08 Dose: 5 mg Documented by: Aspirin (Asa -) 81 mg PO DAILY [facility] Last Admin: 12/05/19 11:07 Dose: 81 mg Documented by: Atorvastatin Calcium (Lipitor -) 40 mg PO HS [facility] Last Admin: 12/04/19 21:08 Dose: 40 mg Documented by: Cyanocobalamin (Vitamin B12 -) 100 mcg PO DAILY [facility] Last Admin: 12/05/19 11:07 Dose: 100 mcg Documented by: Ferrous Sulfate (Feosol -) 325 mg PO DAILY [facility] Last Admin: 12/05/19 11:07 Dose: 325 mg Documented by: Heparin Sodium (Porcine) (Heparin -) 5,000 unit SQ TID [facility] Last Admin: 12/05/19 14:24 Dose: Not Given Documented by: Sodium Phosphate 15 mm/ Sodium (Chloride) 255 mls @ 62.5 mls/hr IV ONCE ONE Stop: 12/05/19 17:34 Last Admin: 12/05/19 14:22 Dose: Not Given Documented by: Insulin Aspart (Novolog Vial Sliding Scale -) 1 vial SQ TIDAC [facility]; Protocol Last Admin: 12/05/19 11:09 Dose: Not Given Documented by: Nicotine (Nicoderm Patch -) 7 mg TD DAILY [facility] Pantoprazole Sodium (Protonix -) 40 mg PO DAILY [facility] Last Admin: 12/05/19 11:07 Dose: 40 mg Documented by: Prednisolone Acetate (Pred Forte 1% -) 1 drop OU QID [facility] Last Admin: 12/05/19 14:24 Dose: Not Given Documented by: Tiotropium [place] (Spiriva Respimat) 2 puff IH DAILY [facility] Last Admin: 12/05/19 11:08 Dose: 2 puff Documented by: - Objective Vital Signs: Vital Signs Temperature 98.2 F 12/05/19 14:00 Pulse Rate 102 H 12/05/19 14:00 Respiratory Rate 20 12/05/19 14:00 Blood Pressure 134/83 12/05/19 14:00 O2 Sat by Pulse Oximetry (%) 97 12/05/19 14:00 Constitutional: Yes: Calm Eyes: Yes: Conjunctiva Clear HENT: Yes: Atraumatic Cardiovascular: Yes: S1, S2 Respiratory: Yes: CTA Bilaterally Gastrointestinal: Yes: Soft Genitourinary: Yes: WNL Edema: No Integumentary: Yes: WNL Neurological: Yes: Oriented Psychiatric: Yes: Oriented Labs: CBC, BMP 12/05/19 10:15 12/05/19 10:15 Assessment/Plan Current Medications Generic Name Dose Route Start Last Admin Trade Name Freq PRN Reason Stop Dose Admin Acetaminophen 650 mg 12/05/19 11:07 Tylenol - PO Q6H PRN Pain Scale 7-10 Amlodipine Besylate 5 mg 12/03/19 17:00 12/05/19 11:08 Norvasc - PO 5 mg DAILY [facility] Administration Aspirin 81 mg 12/04/19 10:00 12/05/19 11:07 Asa - PO 81 mg DAILY [facility] Administration Atorvastatin Calcium 40 mg 12/03/19 22:00 12/04/19 21:08 Lipitor - PO 40 mg HS [facility] Administration Cyanocobalamin 100 mcg 12/04/19 10:00 12/05/19 11:07 Vitamin B12 - PO 100 mcg DAILY [facility] Administration Ferrous Sulfate 325 mg 12/04/19 10:00 12/05/19 11:07 Feosol - PO 325 mg DAILY [facility] Administration Heparin Sodium (Porcine) 5,000 unit 12/03/19 22:00 12/05/19 14:24 Heparin - SQ Not Given TID [facility] Sodium Phosphate 15 mm/ Sodium 255 mls @ 62.5 mls/hr 12/05/19 13:30 12/05/19 14:22 Chloride IV 12/05/19 17:34 Not Given ONCE ONE Insulin Aspart 1 vial 12/03/19 16:30 12/05/19 11:09 Novolog Vial Sliding Scale - SQ Not Given TIDAC [facility] Protocol Nicotine 7 mg 12/06/19 10:00 Nicoderm Patch - TD DAILY [facility] Pantoprazole Sodium 40 mg 12/04/19 16:15 12/05/19 11:07 Protonix - PO 40 mg DAILY [facility] Administration Prednisolone Acetate 1 drop 12/03/19 18:00 12/05/19 14:24 Pred Forte 1% - OU Not Given QID [facility] Tiotropium [place] 2 puff 12/04/19 10:00 12/05/19 11:08 Spiriva Respimat IH 2 puff DAILY [facility] Administration Impression Acute kidney injury Hyperkalemia Encephalopathy Opiate use disorder Diabetes mellitus Hypertension Hyperlipidemia History of CVA Gastro-esophageal reflux Asthma Plan - renal function is improved - can restart metformin - cont to monitor renal function - avoid dehydration - hg is lower, possible dilution - discussed with medical team
[2019-12-05] MEDS ORDERED: MAGNESIUM OXIDE 400 MG TABLET (FP) PO ONE ×2 (15:58→20:00)
[2019-12-05] MEDS: NAPH,MB-DB/K PH,MBDB POWDER PACKET PO SCH ×2 (16:28→21:33)
[2019-12-05] MEDS: ATORVASTATIN CA 40 MG TABLET (FP) PO SCH (21:33)
[2019-12-06] MEDS: INSULIN SLIDING SCALE (NOVOLOG) 1 VIAL SQ SCH ×3 (06:11→16:55)
[2019-12-06] MEDS: NAPH,MB-DB/K PH,MBDB POWDER PACKET PO SCH ×2 (06:11→13:43)
[2019-12-06] MEDS: HEPARIN NA (PORCINE) 5,000 UNITS/ML 1ML VIAL SQ SCH ×2 (06:11→13:42)
--- NOTE | 2019-12-06 08:52 | PN ---
Progress Note (short form) - Note Progress Note: Neurology CHIEF COMPLAINT: Altered mental status PCP: Dr. Marrero HISTORY OF PRESENT ILLNESS: Pt is a 64 year old F with PMHx of HTN, DM, HepC, asthma presenting to the ED from [facility] [place] with altered mental status. Pt is A&O x 3 at baseline, and was recently discharged from [facility] for hypoglycemia resolved for taking insulin meds without eating, regimen was changed to metformin 750mg BID daily. Consulted because patient with AMS and labs with positive RPR with interest in possible neurosyphilis. CT head completed and without acute changes. Per notes, patient has been improving in mental status. Had hyperkalemia which renal managing and correcting. Leukocytosis and elevated ammonia on initial labs with possible toxic metabolic encephalopathy also underlying. Also positive for opiates on labs. Patient more frustrated this morning, "I don't know why ya'll keep asking me these questions" when inquiring about day, date, month, etc. She is aware that she is at the hospital as well as month, for year she says "20 something" seems more disinterested than confused. RPR results 1:1. Active Medications Acetaminophen (Tylenol -) 650 mg PO Q6H PRN PRN Reason: Pain Scale 7-10 Last Admin: 12/05/19 16:37 Dose: 650 mg Documented by: Amlodipine Besylate (Norvasc -) 5 mg PO DAILY [facility] Last Admin: 12/05/19 11:08 Dose: 5 mg Documented by: Aspirin (Asa -) 81 mg PO DAILY [facility] Last Admin: 12/05/19 11:07 Dose: 81 mg Documented by: Atorvastatin Calcium (Lipitor -) 40 mg PO HS [facility] Last Admin: 12/05/19 21:33 Dose: 40 mg Documented by: Cyanocobalamin (Vitamin B12 -) 100 mcg PO DAILY [facility] Last Admin: 12/05/19 11:07 Dose: 100 mcg Documented by: Ferrous Sulfate (Feosol -) 325 mg PO DAILY [facility] Last Admin: 12/05/19 11:07 Dose: 325 mg Documented by: Heparin Sodium (Porcine) (Heparin -) 5,000 unit SQ TID [facility] Last Admin: 12/06/19 06:11 Dose: Not Given Documented by: Insulin Aspart (Novolog Vial Sliding Scale -) 1 vial SQ TIDAC [facility]; Protocol Last Admin: 12/06/19 06:11 Dose: Not Given Documented by: Nicotine (Nicoderm Patch -) 7 mg TD DAILY [facility] Pantoprazole Sodium (Protonix -) 40 mg PO DAILY [facility] Last Admin: 12/05/19 11:07 Dose: 40 mg Documented by: Potassium Phos/Sodium Phos (Phos-Nak Packet -) 1 packet PO TID [facility] Stop: 12/06/19 23:59 Last Admin: 12/06/19 06:11 Dose: Not Given Documented by: Prednisolone Acetate (Pred Forte 1% -) 1 drop OU QID [facility] Last Admin: 12/05/19 21:36 Dose: Not Given Documented by: Tiotropium [place] (Spiriva Respimat) 2 puff IH DAILY [facility] Last Admin: 12/05/19 11:08 Dose: 2 puff Documented by: PHYSICAL EXAMINATION Vital Signs Period Temp Pulse Resp BP Sys/Martinez Pulse Ox Last 24 Hr 97.7 F-98.6 F 74-102 19-20 122-136/69-83 96-97 GENERAL: Awake, alert, and fully oriented, in no acute distress. HEAD: Normal with no signs of trauma. EYES: Pupils equal, round and reactive to light, extraocular movements intact, sclera anicteric, conjunctiva clear. No lid lag. EARS, NOSE, THROAT: Ears normal, nares patent, oropharynx clear without exudates. Moist mucous membranes. NECK: Normal range of motion, supple without lymphadenopathy, JVD, or masses. LUNGS: Breath sounds equal, clear to auscultation bilaterally. No wheezes, and no crackles. No accessory muscle use. HEART: Regular rate and rhythm, normal S1 and S2 without murmur, rub or gallop. ABDOMEN: Soft, nontender, not distended, normoactive bowel sounds, no guarding, no rebound, no masses. No hepatomegaly or splenomegaly. MUSCULOSKELETAL: Normal range of motion at all joints. No bony deformities or tenderness. No CVA tenderness. UPPER EXTREMITIES: 2+ pulses, warm, well-perfused. No cyanosis. No clubbing. No peripheral edema. LOWER EXTREMITIES: 2+ pulses, warm, well-perfused. No calf tenderness. No peripheral edema. NEUROLOGICAL: Cranial nerves II-XII intact. Normal speech. Moves all extremities equally, sensory intact PSYCHIATRIC: Cooperative. Good eye contact. Appropriate mood and affect. SKIN: Warm, dry, normal turgor, no rashes or lesions noted, normal capillary refill. CBCD WBC 7.2 K/mm3 (4.0-10.0) 12/05/19 10:15 RBC 2.67 M/mm3 (3.60-5.2) L 12/05/19 10:15 Hgb 7.9 GM/dL (10.7-15.3) L 12/05/19 10:15 Hct 23.5 % (32.4-45.2) L D 12/05/19 10:15 MCV 87.9 fl (80-96) 12/05/19 10:15 MCHC 33.5 g/dl (32.0-36.0) 12/05/19 10:15 RDW 14.7 % (11.6-15.6) 12/05/19 10:15 Plt Count 449 K/MM3 (134-434) H 12/05/19 10:15 MPV 7.8 fl (7.5-11.1) 12/05/19 10:15 CMP Sodium 136 mmol/L (136-145) 12/05/19 10:15 Potassium 4.5 mmol/L (3.5-5.1) 12/05/19 10:15 Chloride 109 mmol/L (98-107) H 12/05/19 10:15 Carbon Dioxide 21 mmol/L (21-32) 12/05/19 10:15 Anion Gap 7 MMOL/L (8-16) L 12/05/19 10:15 BUN 14.0 mg/dL (7-18) 12/05/19 10:15 Creatinine 1.0 mg/dL (0.55-1.3) 12/05/19 10:15 Random Glucose 148 mg/dL (74-106) H 12/05/19 10:15 Calcium 7.1 mg/dL (8.5-10.1) L 12/05/19 10:15 Total Bilirubin 0.3 mg/dL (0.2-1) 12/05/19 10:15 AST 25 U/L (15-37) 12/05/19 10:15 ALT 9 U/L (13-61) L 12/05/19 10:15 Alkaline Phosphatase 236 U/L (45-117) H 09/24/20 10:15 Total Protein 7.0 g/dl (6.4-8.2) 12/05/19 10:15 Albumin 2.0 g/dl (3.4-5.0) L 12/05/19 10:15 ASSESSMENT/PLAN: 64 year old F with PMHx of HTN, DM, HepC, asthma presenting to the ED from [facility] [place] with altered mental status. Pt is A&O x 3 at baseline, and was recently discharged from [facility] for hypoglycemia resolved for taking insulin meds without eating, regimen was changed to metformin 750mg BID daily. Consulted because patient with AMS and labs with positive RPR with interest in possible neurosyphilis. CT head completed and without acute changes. Per notes, patient has been improving in mental status. Had hyperkalemia which renal managing and correcting. Leukocytosis and elevated ammonia on labs with possible toxic metabolic encephalopathy also underlying. Also positive for opiates on labs. Patient more frustrated this morning, "I don't know why ya'll keep asking me these questions" when inquiring about day, date, month, etc. She is aware that she is at the hospital as well as month, for year she says "20 something" seems more disinterested than confused. RPR results 1:1. Patient less cooperative today though seems to be lucid in thoughts. She is adamant she does not have syphliis, indicated prior infection. ID consulted. Likely underlying syphilis, less likely to be neurosyphilis. If definitive investigation needed, then fluoro guided spinal tap can be considered. Continue to monitor mental status and optimize underlying conditions. No objection to continued B12. Monitor DM, maintain euglycemic range.
[2019-12-06] MEDS ORDERED: NICOTINE 7 MG/24 HOURS TOPICAL PATCH TD SCH (10:00)
[2019-12-06 10:26] LABS: BASO % 0.4 % (0-2.0); EOS % 1.3 % (0-4.5); HEMOGLOBIN 8.4 GM/dL (10.7-15.3); LYMPH % 22.5 % (8-40); MCH 29.2 pg (25.7-33.7); MCHC 33.5 g/dl (32.0-36.0); MEAN CELL VOLUME 87.1 fl (80-96); MEAN PLT VOLUME 8.2 fl (7.5-11.1); MONO % 3.4 % (3.8-10.2); NEUT % 72.4 % (42.8-82.8); PLATELET COUNT 503 K/MM3 (134-434); RBC 2.87 M/mm3 (3.60-5.2); RDW 14.6 % (11.6-15.6); WHITE BLOOD COUNT 7.4 K/mm3 (4.0-10.0)
[2019-12-06 10:38] LABS: BLOOD UREA NITROGEN 12.5 mg/dL (7-18); CALCIUM 8.1 mg/dL (8.5-10.1); CREATININE 1.1 mg/dL (0.55-1.3); MAGNESIUM 1.4 mg/dL (1.8-2.4); PHOSPHOROUS 2.3 mg/dL (2.5-4.9)
[2019-12-06] MEDS ORDERED: PT OWN MED DRAWER 7, Y5N ONE (10:48)
[2019-12-06] MEDS: amLODIPine BESYLATE 5 MG TABLET (FP) PO SCH (10:52)
[2019-12-06] MEDS: CYANOCOBALAMIN (VITAMIN B-12) 100 MCG TABLET PO SCH (10:52)
[2019-12-06] MEDS: ASPIRIN 81 MG CHEWABLE TABLETS PO SCH (10:52)
[2019-12-06] MEDS: FERROUS SO4 325 MG TABLET (FP) PO SCH (10:52)
[2019-12-06] MEDS: PANTOPRAZOLE 40 MG TABLET PO SCH (10:52)
[2019-12-06] MEDS: prednisoLONE ACETATE 1% OPHTH SUSP 5 ML BOTTLE OU SCH ×2 (10:55→13:42)
[2019-12-06] MEDS: TIOTROPIUM BROMIDE 2.5 MCG (SPIRIVA) RESPIMAT INHALER IH SCH (10:56)
--- NOTE | 2019-12-06 13:02 | DS ---
Physical Exam: SUBJECTIVE: Patient seen and examined. Improved mental status. A&O x 3. OBJECTIVE: Vital Signs Period Temp Pulse Resp BP Sys/Martinez Pulse Ox Last 24 Hr 98 F-98.6 F 74-102 20-20 122-136/70-83 97-97 PHYSICAL EXAM GENERAL: The patient is awake, alert, and fully oriented, in no acute distress. Unkempt. HEAD: Normal with no signs of trauma. EYES: PERRL, extraocular movements intact, sclera anicteric, conjunctiva clear. ENT: Ears normal, nares patent, oropharynx clear without exudates, moist mucous membranes. NECK: Trachea midline, full range of motion, supple. LUNGS: Breath sounds equal, clear to auscultation bilaterally, no wheezes, no crackles, no accessory muscle use. HEART: Regular rate and rhythm, S1, S2 without murmur, rub or gallop. ABDOMEN: Soft, nontender, nondistended, normoactive bowel sounds, no guarding, no rebound, no hepatosplenomegaly, no masses. EXTREMITIES: 2+ pulses, warm, well-perfused, no edema. NEUROLOGICAL: Cranial nerves II through XII grossly intact. Normal speech, gait not observed. PSYCH: Normal mood, normal affect. SKIN: Warm, dry, normal turgor, no rashes or lesions noted. LABS Laboratory Results - last 24 hr 12/03/19 12/04/19 12/04/19 23:25 11:30 13:32 WBC RBC Hgb Hct MCV MCH MCHC RDW Plt Count MPV Absolute Neuts (auto) Neutrophils % Lymphocytes % Monocytes % Eosinophils % Basophils % Nucleated RBC % Sodium Potassium Chloride Carbon Dioxide Anion Gap BUN Creatinine Est GFR (CKD-EPI)AfAm Est GFR (CKD-EPI)NonAf POC Glucometer Random Glucose Calcium Phosphorus Magnesium Ammonia Free T3 1.6 L RPR Titer Reactive 1:1 H COVID-19 (JAE) Not detected 12/05/19 12/06/19 12/06/19 16:41 09:12 09:12 WBC 7.4 RBC 2.87 L Hgb 8.4 L Hct 25.0 L MCV 87.1 MCH 29.2 MCHC 33.5 RDW 14.6 Plt Count 503 H MPV 8.2 Absolute Neuts (auto) 5.4 Neutrophils % 72.4 Lymphocytes % 22.5 D Monocytes % 3.4 L Eosinophils % 1.3 Basophils % 0.4 Nucleated RBC % 0 Sodium 136 Potassium 5.0 Chloride 106 Carbon Dioxide 24 Anion Gap 6 L BUN 12.5 Creatinine 1.1 Est GFR (CKD-EPI)AfAm 61.01 Est GFR (CKD-EPI)NonAf 52.64 POC Glucometer 140 Random Glucose 170 H Calcium 8.1 L Phosphorus 2.3 L Magnesium 1.4 L Ammonia Free T3 RPR Titer COVID-19 (JAE) 12/06/19 09:12 WBC RBC Hgb Hct MCV MCH MCHC RDW Plt Count MPV Absolute Neuts (auto) Neutrophils % Lymphocytes % Monocytes % Eosinophils % Basophils % Nucleated RBC % Sodium Potassium Chloride Carbon Dioxide Anion Gap BUN Creatinine Est GFR (CKD-EPI)AfAm Est GFR (CKD-EPI)NonAf POC Glucometer Random Glucose Calcium Phosphorus Magnesium Ammonia 41.40 H Free T3 RPR Titer COVID-19 (JAE) HOSPITAL COURSE: Date of Admission:12/03/19 Pt was admitted for acute mental status change from [facility], was found to be hyperkalemic which resolved, and HAM which resolved with IV fluids. Pt also had borderline lactic acidosis so metformin was held during admission, but was resumed on discharge. Pt was also found to have elevated TSH but normal free T4 and was advised to repeat outpatient. Pt had CT head which showed no acute processes, but chronic infarcts were seen - pt was continued on her ASA and statin. ID advised for penicillin for reactive syphilis serology, however patient refused. Pt will follow up with ID, nephrology, neurology. Date of Discharge: 12/06/19 Minutes to complete discharge: 36 Discharge Summary Problems reviewed: Yes Reason For Visit: ACUTE KIDNEY INJURY HYPERKALEMIA Current Active Problems HAM (acute kidney injury) (Acute) Hyperkalemia (Acute) Transient alteration of awareness (Acute) Condition: Improved - Instructions Diet, Activity, Other Instructions: You came into the hospital from [facility] because you were found to be confused, and not seeming like your normal self. You had head imaging which showed that you may have had mini strokes in the past. You also were found to have dysfunction in your kidneys, which we treated with IV fluids. Please continue all home medications as prescribed. We recommend a dose of penicillin G for findings of a positive RPR. While you did not want this medication during this visit you may return to for this medication at any time. [place] to follow up Please follow up with your primary care physician, Dr. Marrero, in 1 week for overall health care management. Please have a repeat of your thyroid hormone level in 3-4 weeks and follow up with your PCP as well. Please follow up with your neurologist, Dr. Moya, in 2 weeks. Please follow up with your infectious disease doctor, Dr. Stroud, in 2 weeks. Please follow up with your services clerk, Dr. Maldonado, in 2 weeks. If you have any, new or worsening symptoms please call 911 or return to the ED. Referrals: Ayan Marrero [Primary Care Provider] - 1 Week (Please repeat TSH in 3-4 weeks.) Azeem Stroud MD [Staff Physician] - 2 Weeks Rob Moya MD [Staff Physician] - 2 Weeks Vincent Maldonado MD [Staff Physician] - 2 Weeks [facility]position: [facility] - Home Medications Comprehensive Discharge Medication List: Ambulatory Orders Acetaminophen [Pain Reliever] 500 mg PO BID 11/24/19 Amlodipine Besylate 5 mg PO DAILY 11/24/19 Atorvastatin Ca [Lipitor] 40 mg PO HS 11/24/19 Cyanocobalamin (Vitamin B-12) [Vitamin B-12] 100 mcg PO DAILY 11/24/19 Ferrous Sulfate 325 mg PO DAILY 11/24/19 Insulin Lispro [Admelog Solostar] 100 unit SQ ASDIR 11/24/19 Lisinopril 20 mg PO DAILY 11/25/19 Prednisolone 1% Ophthalmic [Pred Forte 1% -] 1 drop OU QID 11/25/19 Aspirin [ASA -] 81 mg PO DAILY #30 tab.chew 11/26/19 Aspirin 81 mg PO DAILY 12/03/19 Tiotropium [place] [Spiriva] 2 puff IH DAILY 12/03/19 Umeclidinium [place] [Incruse Ellipta] 62.5 mcg IH DAILY 12/03/19 Pantoprazole Sodium [Protonix] 40 mg PO DAILY 12/04/19 metFORMIN HCL [Metformin HCl ER] 750 mg PO BID 12/04/19 This patient is new to me today: No Emergency Visit: Yes ED Registration Date: 12/03/19 Care time: The patient presented to the Emergency Department on the above date and was hospitalized for further evaluation of their emergent condition. Critical Care patient: No - Discharge Referral Referred to [facility] Med [facility].C[facility] No ATTENDING PHYSICIAN STATEMENT I saw and evaluated the patient. I reviewed the resident's note and discussed the case with the resident. I agree with the resident's findings and plan as documented. SUBJECTIVE: OBJECTIVE: ASSESSMENT AND PLAN:
[2019-12-06] MEDS ORDERED: MAGNESIUM 2GM/50ML STERILE WATER IVPB IVPB ONE (13:23)
--- NOTE | 2019-12-06 13:28 | PN ---
Progress Note, Physician History of Present Illness: Pt seen and examined at bedside. She is awake and alert. She denies shortness of breath. - Current Medication List Current Medications: Active Medications Acetaminophen (Tylenol -) 650 mg PO Q6H PRN PRN Reason: Pain Scale 7-10 Last Admin: 12/05/19 16:37 Dose: 650 mg Documented by: Amlodipine Besylate (Norvasc -) 5 mg PO DAILY [facility] Last Admin: 12/06/19 10:52 Dose: 5 mg Documented by: Aspirin (Asa -) 81 mg PO DAILY [facility] Last Admin: 12/06/19 10:52 Dose: 81 mg Documented by: Atorvastatin Calcium (Lipitor -) 40 mg PO HS [facility] Last Admin: 12/05/19 21:33 Dose: 40 mg Documented by: Cyanocobalamin (Vitamin B12 -) 100 mcg PO DAILY [facility] Last Admin: 12/06/19 10:52 Dose: 100 mcg Documented by: Ferrous Sulfate (Feosol -) 325 mg PO DAILY [facility] Last Admin: 12/06/19 10:52 Dose: 325 mg Documented by: Heparin Sodium (Porcine) (Heparin -) 5,000 unit SQ TID [facility] Last Admin: 12/06/19 06:11 Dose: Not Given Documented by: Insulin Aspart (Novolog Vial Sliding Scale -) 1 vial SQ TIDAC [facility]; Protocol Last Admin: 12/06/19 11:22 Dose: Not Given Documented by: Nicotine (Nicoderm Patch -) 7 mg TD DAILY [facility] Last Admin: 12/06/19 10:52 Dose: 7 mg Documented by: Pantoprazole Sodium (Protonix -) 40 mg PO DAILY [facility] Last Admin: 12/06/19 10:52 Dose: 40 mg Documented by: Potassium Phos/Sodium Phos (Phos-Nak Packet -) 1 packet PO TID [facility] Stop: 12/06/19 23:59 Last Admin: 12/06/19 06:11 Dose: Not Given Documented by: Prednisolone Acetate (Pred Forte 1% -) 1 drop OU QID [facility] Last Admin: 12/06/19 10:55 Dose: Not Given Documented by: Tiotropium [place] (Spiriva Respimat) 2 puff IH DAILY [facility] Last Admin: 12/06/19 10:56 Dose: 2 puff Documented by: - Objective Vital Signs: Vital Signs Temperature 98 F 12/05/19 22:20 Pulse Rate 74 09/24/20 22:20 Respiratory Rate 20 12/06/19 09:00 Blood Pressure 122/70 12/05/19 22:20 O2 Sat by Pulse Oximetry (%) 97 12/06/19 09:00 Constitutional: Yes: Calm Eyes: Yes: Conjunctiva Clear HENT: Yes: Atraumatic Cardiovascular: Yes: S1, S2 Respiratory: Yes: CTA Bilaterally Gastrointestinal: Yes: Soft Genitourinary: Yes: WNL Musculoskeletal: Yes: WNL Edema: No Neurological: Yes: Oriented Psychiatric: Yes: Oriented Labs: CBC, BMP 12/06/19 09:12 12/06/19 09:12 Assessment/Plan Current Medications Generic Name Dose Route Start Last Admin Trade Name Freq PRN Reason Stop Dose Admin Acetaminophen 650 mg 12/05/19 11:07 12/05/19 16:37 Tylenol - PO 650 mg Q6H PRN Administration Pain Scale 7-10 Amlodipine Besylate 5 mg 12/03/19 17:00 12/06/19 10:52 Norvasc - PO 5 mg DAILY [facility] Administration Aspirin 81 mg 12/04/19 10:00 12/06/19 10:52 Asa - PO 81 mg DAILY [facility] Administration Atorvastatin Calcium 40 mg 12/03/19 22:00 12/05/19 21:33 Lipitor - PO 40 mg HS [facility] Administration Cyanocobalamin 100 mcg 12/04/19 10:00 12/06/19 10:52 Vitamin B12 - PO 100 mcg DAILY [facility] Administration Ferrous Sulfate 325 mg 12/04/19 10:00 12/06/19 10:52 Feosol - PO 325 mg DAILY [facility] Administration Heparin Sodium (Porcine) 5,000 unit 12/03/19 22:00 12/06/19 06:11 Heparin - SQ Not Given TID [facility] Insulin Aspart 1 vial 12/03/19 16:30 12/06/19 11:22 Novolog Vial Sliding Scale - SQ Not Given TIDAC [facility] Protocol Magnesium Sulfate 2 gm 12/06/19 13:23 Magnesium Sulfate IVPB 12/06/19 13:24 ONCE ONE Nicotine 7 mg 12/06/19 10:00 12/06/19 10:52 Nicoderm Patch - TD 7 mg DAILY [facility] Administration Pantoprazole Sodium 40 mg 12/04/19 16:15 12/06/19 10:52 Protonix - PO 40 mg DAILY [facility] Administration Potassium Phos/Sodium Phos 1 packet 12/05/19 16:00 12/06/19 06:11 Phos-Nak Packet - PO 12/06/19 23:59 Not Given TID [facility] Prednisolone Acetate 1 drop 12/03/19 18:00 12/06/19 10:55 Pred Forte 1% - OU Not Given QID [facility] Tiotropium [place] 2 puff 12/04/19 10:00 12/06/19 10:56 Spiriva Respimat IH 2 puff DAILY [facility] Administration Impression Acute kidney injury Hyperkalemia Encephalopathy Opiate use disorder Diabetes mellitus Hypertension Hyperlipidemia History of CVA Gastro-esophageal reflux Asthma Plan - renal function stable - monitor lytes - outpt follow up - avoid dehydration - will follow PRN
[2019-12-06 13:42] VITALS: BP 141/85; PULSE 104; TEMP 99.6
[2019-12-06] MEDS ORDERED: MAGNESIUM SULF 50% (8.12 MEQ/2 ML-1 GM VIAL) IVPB ONE (14:26)
--- NOTE | 2019-12-06 14:33 | PN ---
Teaching Attending Note Name of Resident: Ellen Castelan ATTENDING PHYSICIAN STATEMENT I saw and evaluated the patient. I reviewed the resident's note and discussed the case with the resident. I agree with the resident's findings and plan as documented. SUBJECTIVE: Feeling well, no complaints. Denies confusion. Denies lightheadedness/headache/visual disturbance/limb numbness or weakness. Denies fever/chills/dysuria/hematuria. Verbally hostile OBJECTIVE: Afebrile, Hemodynamically Stable. No tremor/diaphoresis. Last Vital Signs Temp Pulse Resp BP Pulse Ox 99.6 F 104 H 20 141/85 100 12/06/19 13:41 12/06/19 13:41 12/06/19 13:41 12/06/19 13:41 12/06/19 13:41 HEENT - Atraumatic, Normocephalic. HUMBERTO. Heart - S1, S2, RRR Lungs - clear to auscultation Abdomen - Soft, mild epigastric tenderness. Bowel Sounds normal. Extremities - no edema, no calf tenderness. Neuro - AAO x 3 today. Tone/Power normal. Laboratory Results - last 24 hr 12/03/19 12/04/19 12/05/19 23:25 13:32 16:41 WBC RBC Hgb Hct MCV MCH MCHC RDW Plt Count MPV Absolute Neuts (auto) Neutrophils % Lymphocytes % Monocytes % Eosinophils % Basophils % Nucleated RBC % Sodium Potassium Chloride Carbon Dioxide Anion Gap BUN Creatinine Est GFR (CKD-EPI)AfAm Est GFR (CKD-EPI)NonAf POC Glucometer 140 Random Glucose Calcium Phosphorus Magnesium Ammonia Free T3 1.6 L COVID-19 (JAE) Not detected 12/06/19 12/06/19 12/06/19 09:12 09:12 09:12 WBC 7.4 RBC 2.87 L Hgb 8.4 L Hct 25.0 L MCV 87.1 MCH 29.2 MCHC 33.5 RDW 14.6 Plt Count 503 H MPV 8.2 Absolute Neuts (auto) 5.4 Neutrophils % 72.4 Lymphocytes % 22.5 D Monocytes % 3.4 L Eosinophils % 1.3 Basophils % 0.4 Nucleated RBC % 0 Sodium 136 Potassium 5.0 Chloride 106 Carbon Dioxide 24 Anion Gap 6 L BUN 12.5 Creatinine 1.1 Est GFR (CKD-EPI)AfAm 61.01 Est GFR (CKD-EPI)NonAf 52.64 POC Glucometer Random Glucose 170 H Calcium 8.1 L Phosphorus 2.3 L Magnesium 1.4 L Ammonia 41.40 H Free T3 COVID-19 (JEA) Current Medications Generic Name Dose Route Start Last Admin Trade Name Freq PRN Reason Stop Dose Admin Acetaminophen 650 mg 12/05/19 11:07 12/05/19 16:37 Tylenol - PO 650 mg Q6H PRN Administration Pain Scale 7-10 Amlodipine Besylate 5 mg 12/03/19 17:00 12/06/19 10:52 Norvasc - PO 5 mg DAILY [facility] Administration Aspirin 81 mg 12/04/19 10:00 12/06/19 10:52 Asa - PO 81 mg DAILY [facility] Administration Atorvastatin Calcium 40 mg 12/03/19 22:00 12/05/19 21:33 Lipitor - PO 40 mg HS [facility] Administration Cyanocobalamin 100 mcg 12/04/19 10:00 12/06/19 10:52 Vitamin B12 - PO 100 mcg DAILY [facility] Administration Ferrous Sulfate 325 mg 12/04/19 10:00 12/06/19 10:52 Feosol - PO 325 mg DAILY [facility] Administration Heparin Sodium (Porcine) 5,000 unit 12/03/19 22:00 12/06/19 13:42 Heparin - SQ Not Given TID [facility] Insulin Aspart 1 vial 12/03/19 16:30 12/06/19 11:22 Novolog Vial Sliding Scale - SQ Not Given TIDAC [facility] Protocol Nicotine 7 mg 12/06/19 10:00 12/06/19 10:52 Nicoderm Patch - TD 7 mg DAILY [facility] Administration Pantoprazole Sodium 40 mg 12/04/19 16:15 12/06/19 10:52 Protonix - PO 40 mg DAILY [facility] Administration Potassium Phos/Sodium Phos 1 packet 12/05/19 16:00 12/06/19 13:43 Phos-Nak Packet - PO 12/06/19 23:59 Not Given TID [facility] Prednisolone Acetate 1 drop 12/03/19 18:00 12/06/19 13:42 Pred Forte 1% - OU Not Given QID [facility] Tiotropium [place] 2 puff 12/04/19 10:00 12/06/19 10:56 Spiriva Respimat IH 2 puff DAILY [facility] Administration Home Medications Medication Instructions Recorded Acetaminophen [Pain Reliever] 500 mg PO BID 11/24/19 Amlodipine Besylate 5 mg PO DAILY 11/24/19 Atorvastatin Ca [Lipitor] 40 mg PO HS 11/24/19 Cyanocobalamin (Vitamin B-12) 100 mcg PO DAILY 11/24/19 [Vitamin B-12] Ferrous Sulfate 325 mg PO DAILY 11/24/19 Insulin Lispro [Admelog Solostar] 100 unit SQ ASDIR 11/24/19 Lisinopril 20 mg PO DAILY 11/25/19 Prednisolone 1% Ophthalmic [Pred 1 drop OU QID 11/25/19 Forte 1% -] Aspirin [ASA -] 81 mg PO DAILY #30 tab.chew 11/26/19 Aspirin 81 mg PO DAILY 12/03/19 Tiotropium [place] [Spiriva] 2 puff IH DAILY 12/03/19 Umeclidinium [place] [Incruse 62.5 mcg IH DAILY 12/03/19 Ellipta] Pantoprazole Sodium [Protonix] 40 mg PO DAILY 12/04/19 metFORMIN HCL [Metformin HCl ER] 750 mg PO BID 12/04/19 ASSESSMENT AND PLAN: 64 year old female resident of [facility] with history of HTN, HLD, DM 2, HepC, Asthma/COPD, GERD, sent to ED with confusion, found to have HAM. Recently discharged from [facility] for hypoglycemia due to Insulin regimen, which was zoraida ndoned in favor of Metformin. CT Head - no acute findings, chronic L parieto-cortical infarct, chronic bilateral basal ganglia infarcts, moderate to marked microvascular ischemic changes. 1. Acute Encephalopathy, etiology unclear - toxic vs progression of vascular dementia ? toxic due to opiates (utox pos for opiates, the use of which she denies) AAO x 2-3. Dementia work-up complete including positive Syphilis Serology/RPR Neurology and ID consults evaluated - further management recommendations as per ID/Neuro Refuses Syphilis treatment as per ID. 2. HAM - pre-renal, secondary to dehydration HAM resolved with IV hydration. Hyperkalemia sec to HAM - improved with IV hydration. Nephrology following. 3. Elevated TSH, normal free T4 - for repeat TFTs in 3-4 weeks. 5. Normocytic anemia, Hx of Iron and B12 deficiency, on supplementation - Iron/B12/Folate levels now wnl. Anemia likely sec to Chronic Disease. No evidence of acute blood loss, will monitor. Drop in Hb likely sec to hydrati on/hemodilution. No reported melena/hematochezia. IV hydration stopped. H/H Stable. repeat CBC as outpatient. 6. HTN - continue Norvasc. Lisinopril held due to HAM. Can resume on discharge. 7. DM 2 - Metformin to resume on discharge. 8. Asthma/COPD - stable, no evidence of acute exacerbation. Continue home meds - Incruse ellipta, Spiriva. 9. HLD - Continue Statin. 10. GERD - continue PPI. 11. Hypomagnesemia/Hypophosphatemia - repleted. 12. Hx of Cerebrovascular Disease - as per CT Head findings. No focal neurological deficits. On Aspirin/Statin for secondary Stroke prevention. Medically stable and optimized for discharge back to [facility].
--- NOTE | 2019-12-06 14:57 | PN ---
Progress Note, Physician History of Present Illness: AWAKE, ALERT OFFERS NO COMPLAINTS AFEBRILE - Current Medication List Current Medications: Active Medications Acetaminophen (Tylenol -) 650 mg PO Q6H PRN PRN Reason: Pain Scale 7-10 Last Admin: 12/05/19 16:37 Dose: 650 mg Documented by: Amlodipine Besylate (Norvasc -) 5 mg PO DAILY [facility] Last Admin: 12/06/19 10:52 Dose: 5 mg Documented by: Aspirin (Asa -) 81 mg PO DAILY [facility] Last Admin: 12/06/19 10:52 Dose: 81 mg Documented by: Atorvastatin Calcium (Lipitor -) 40 mg PO HS [facility] Last Admin: 12/05/19 21:33 Dose: 40 mg Documented by: Cyanocobalamin (Vitamin B12 -) 100 mcg PO DAILY [facility] Last Admin: 12/06/19 10:52 Dose: 100 mcg Documented by: Ferrous Sulfate (Feosol -) 325 mg PO DAILY [facility] Last Admin: 12/06/19 10:52 Dose: 325 mg Documented by: Heparin Sodium (Porcine) (Heparin -) 5,000 unit SQ TID [facility] Last Admin: 12/06/19 13:42 Dose: Not Given Documented by: Insulin Aspart (Novolog Vial Sliding Scale -) [facility] Protocol Last Admin: 12/06/19 11:22 Dose: Not Given Documented by: Nicotine (Nicoderm Patch -) 7 mg TD DAILY [facility] Last Admin: 12/06/19 10:52 Dose: 7 mg Documented by: Pantoprazole Sodium (Protonix -) 40 mg PO DAILY [facility] Last Admin: 12/06/19 10:52 Dose: 40 mg Documented by: Potassium Phos/Sodium Phos (Phos-Nak Packet -) 1 packet PO TID [facility] Stop: 12/06/19 23:59 Last Admin: 12/06/19 13:43 Dose: Not Given Documented by: Prednisolone Acetate (Pred Forte 1% -) 1 drop OU QID [facility] Last Admin: 12/06/19 13:42 Dose: Not Given Documented by: Tiotropium [place] (Spiriva Respimat) 2 puff IH DAILY [facility] Last Admin: 12/06/19 10:56 Dose: 2 puff Documented by: - Objective Vital Signs: Vital Signs Temperature 99.6 F 12/06/19 13:41 Pulse Rate 104 H 12/06/19 13:41 Respiratory Rate 12/06/19 13:41 Blood Pressure 141/85 12/06/19 13:41 O2 Sat by Pulse Oximetry (%) 100 12/06/19 13:41 Constitutional: Yes: No Distress Eyes: Yes: Conjunctiva Clear Cardiovascular: Yes: Regular Rate and Rhythm, S1, S2 Respiratory: Yes: CTA Bilaterally Gastrointestinal: Yes: Normal Bowel Sounds, Soft Labs: CBC, BMP 12/06/19 09:12 12/06/19 09:12 Assessment/Plan S/P ALTERED MENTAL STATUS RESOLVED + SYPHILIS SEROLOGY PT REPORTS HAVING SYPHILIS 17YR AGO AND RECEIVING TREATMENT ROBBY CONTACTED NO RECORD OF POSITIVE SEROLOGY OR TREATMENT HX REGARDLESS, PT REFUSES TREATMENT
== END 2019-12-06 16:50 | DRG 682 ==
LOC: JER 10:20 → JERBED 15:36 → J8W 12-04 01:31
DX: N17.9 Acute kidney failure, unspecified (principal); G92 Toxic encephalopathy; E87.2 Acidosis; I10 Essential (primary) hypertension; K21.9 Gastro-esophageal reflux disease without esophagitis; E86.0 Dehydration; E83.42 Hypomagnesemia; A53.9 Syphilis, unspecified; D64.9 Anemia, unspecified; E11.9 Type 2 diabetes mellitus without complications; E87.5 Hyperkalemia; J45.909 Unspecified asthma, uncomplicated; F11.90 Opioid use, unspecified, uncomplicated; T40.605A Adverse effect of unspecified narcotics, initial encounter; E83.39 Other disorders of phosphorus metabolism; E78.5 Hyperlipidemia, unspecified; Z86.19 Personal history of other infectious and parasitic diseases; Z86.73 Personal history of transient ischemic attack (TIA), and cerebral infarction without residual deficits
CPT/HCPCS: 36415; 70450-TC; 71045-TC-FY; 80048; 80053; 80307; 81003; 82140; 82436; 82533; 82565; 82607; 82728; 82746; 82962; 83540; 83550; 83605; 83735; 84100; 84133; 84300; 84439; 84443; 84481; 85025; 85027; 86593; 86780; 87086; 93005; 93010; 99285-25; J1644; U0003